=== PATIENT | female | born 1975 | race Caucasian/White ===

== ENCOUNTER → 2016-02-22 | Outpatient (CLI) | payer OTHER ==
--- NOTE | 2016-02-22 12:47 | XR ---
EXAMINATION TYPE: XR knee complete LT DATE OF EXAM: 02/22/2016 12:00 PM COMPARISON: NONE HISTORY: 40-year-old female fall 3 months ago with pain and swelling, degenerative joint disease. TECHNIQUE: 3 views FINDINGS: Mild marginal spurring within the medial and patellofemoral compartments. Weightbearing view could be tter evaluate the joint space. Extensor mechanism appears intact. No significant knee joint effusion. No acute fracture or dislocation. Some anterior soft tissue prominence may relate to patient body richter bitus. IMPRESSION: No acute osseous abnormality seen. Mild degenerative spurring in the medial and patellofemoral compar tments. Possible anterior soft tissue swelling.
== END | disposition home or self-care (01) ==
LOC: RADXRMAIN 11:34
PROVIDERS: ATTEND Internal Medicine
DX: M77.8 Other enthesopathies, not elsewhere classified (principal)

== ENCOUNTER 2016-05-27 11:05 | Emergency (ER) | payer OTHER ==
[2016-05-27 11:13] VITALS: TEMP 98.1
[2016-05-27] MEDS ORDERED: predniSONE 20 MG TAB PO STA (11:55)
[2016-05-27] MEDS ORDERED: valACYclovir HCL 1,000 MG TABLET PO STA (11:55)
--- NOTE | 2016-05-27 11:55 | ED ---
General Adult HPI - General Chief complaint: ENT Stated complaint: left side numbness Time Seen by Provider: 05/27/16 11:23 Source: patient, RN notes reviewed, old records reviewed Mode of arrival: ambulatory Limitations: no limitations - History of Present Illness Initial comments: This is a 40-year-old female ER for evaluation today. This patient presents for evaluation of facial paralysis. Patient has left-sided facial paralysis started yesterday, patient states gets worse when she tries to drink anything and she can't close her left eye. No trauma, no history of high blood pressure or cholesterol no diabetes no smoking. Patient denies any drugs or alcohol today. - Related Data Home Medications Medication Instructions Recorded Confirmed Levothyroxine Sodium [Levoxyl] 200 mcg PO DAILY 11/30/14 05/27/16 metFORMIN HCL 1,000 mg PO BID 11/30/14 05/27/16 Previous Rx's Medication Instructions Recorded predniSONE 50 mg PO DAILY #7 tab 05/27/16 valACYclovir HCL [Valtrex] 1,000 mg PO Q8HR #21 tab 05/27/16 Allergies Allergy/AdvReac Type Severity Reaction Status Date / Time Oawbvgj-[id number]-Psg Reductase AdvReac FACIAL Verified 05/27/16 12:03 Inhibitor NUMBNESS Review of Systems ROS Statement: Those systems with pertinent positive or pertinent negative responses have been documented in the HPI. ROS Other: All systems not noted in ROS Statement are negative. Past Medical History Past Medical History: Diabetes Mellitus, Hyperlipidemia, Hypertension, Thyroid Disorder History of Any Multi-Drug Resistant Organisms: None Reported Past Surgical History: Cholecystectomy Past Psychological History: ADD/ADHD Smoking Status: Never smoker Past Alcohol Use History: None Reported Past Drug Use History: None Reported General Exam - General Exam Comments Initial Comments: Neurological symptoms consistent with Escobedo's palsy, forehead is included in paralysis, unable to close left eye, left-sided facial paralysis Limitations: no limitations General appearance: alert, in no apparent distress Head exam: Present: atraumatic, normocephalic, normal inspection Eye exam: Present: normal appearance, PERRL, EOMI. Absent: scleral icterus, conjunctival injection, periorbital swelling ENT exam: Present: normal exam, mucous membranes moist Neck exam: Present: normal inspection. Absent: tenderness, meningismus, lymphadenopathy Respiratory exam: Present: normal lung sounds bilaterally. Absent: respiratory distress, wheezes, rales, rhonchi, stridor Cardiovascular Exam: Present: regular rate, normal rhythm, normal heart sounds. Absent: systolic murmur, diastolic murmur, rubs, gallop, clicks GI/Abdominal exam: Present: soft, normal bowel sounds. Absent: distended, tenderness, guarding, rebound, rigid Extremities exam: Present: normal inspection, full ROM, normal capillary refill. Absent: tenderness, pedal edema, joint swelling, calf tenderness Back exam: Present: normal inspection Neurological exam: Present: alert, oriented X3, CN II-XII intact Psychiatric exam: Present: normal affect, normal mood Skin exam: Present: warm, dry, intact, normal color. Absent: rash Course Vital Signs 05/27/16 05/27/16 11:10 11:55 Temperature 98.1 F Pulse Rate 110 H 93 Respiratory 20 18 Rate Blood Pressure 195/95 151/81 O2 Sat by Pulse 98 96 Oximetry - Reevaluation(s) Reevaluation #1: Patient consult the good 15 minutes regarding signs and symptoms of Escobedo's palsy versus stroke. Patient's questions are answered Medical Decision Making - Medical Decision Making 40 female to ER for evaluation of neurological issue. 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 Patient can be discharged home started on appropriate therapy Disposition Clinical Impression: Escobedo's palsy Disposition: HOME SELF-CARE Condition: Good Instructions: Escobedo Palsy (ED) Prescriptions: predniSONE 50 mg PO DAILY #7 tab valACYclovir HCL [Valtrex] 1,000 mg PO Q8HR #21 tab Referrals: Anand Hernandez MD [Primary Care Provider] - 1-2 days
[2016-05-27 11:56] VITALS: BP 151/81; PULSE 93; RESP 18
== END 2016-05-27 12:07 | disposition home or self-care (01) ==
LOC: EC 11:05
DX: G51.0 Bell's palsy (principal); E11.9 Type 2 diabetes mellitus without complications; E07.9 Disorder of thyroid, unspecified; Z88.8 Allergy status to other drugs, medicaments and biological substances; Z79.84 Long term (current) use of oral hypoglycemic drugs; Z79.899 Other long term (current) drug therapy
CPT/HCPCS: 99283; J7512

== ENCOUNTER → 2016-08-14 | Outpatient (CLI) | payer OTHER ==
[2016-08-14 15:16] LABS: Basophils % (A) 1 %; CH 30.1; CHCM 35.3; Eosinophils # (A) 0.2 k/uL (0-0.7); Eosinophils % (A) 2 %; HCT 37.7 % (34.0-46.0); HDW 2.86; HGB 13.4 gm/dL (11.4-16.0); Luc # (Auto) 0.11; Luc % (Auto) 2; Lymphocytes # (A) 1.8 k/uL (1.0-4.8); Lymphocytes % (A) 25 %; MCH 30.5 pg (25.0-35.0); MCHC 35.6 g/dL (31.0-37.0); MCV 85.7 fL (80.0-100.0); Monocytes # (A) 0.4 k/uL (0-1.0); Monocytes % (A) 5 %; Neutrophils # (A) 4.5 k/uL (1.3-7.7); Neutrophils % (A) 65 %; RDW 14.8 % (11.5-15.5); WBC (Perox) 7.24
[2016-08-14 16:05] LABS: Blood Urea Nitrogen 7 mg/dL (7-17); Non-African American GFR(MDRD) >60 (>60 ml/min/1.73 sqM)
[2016-08-14 18:55] LABS: Treponemal Ab Non-Reactive (Non-Reactive)
[2016-08-14 19:20] LABS: ANA w/Reflex to Titer NEGATIVE (NEGATIVE)
[2016-08-15 12:02] LABS: Lyme IgG/IgM Interp NEGATIVE (NEGATIVE)
== END | disposition home or self-care (01) ==
LOC: LABWHC1 14:48
PROVIDERS: ATTEND Psychiatry & Neurology Neurology
DX: G51.0 Bell's palsy (principal); R13.10 Dysphagia, unspecified
CPT/HCPCS: 36415; 82565; 84520; 85025; 85613; 85730; 86038; 86225; 86618; 86780

== ENCOUNTER → 2016-10-17 | Outpatient (CLI) | payer OTHER ==
[2016-10-17 13:27] LABS: Basophils % (A) 1 %; CH 30.9; CHCM 35.9; Eosinophils # (A) 0.2 k/uL (0-0.7); Eosinophils % (A) 2 %; HCT 40.9 % (34.0-46.0); HDW 2.84; HGB 14.1 gm/dL (11.4-16.0); Luc # (Auto) 0.19; Luc % (Auto) 2; Lymphocytes # (A) 1.9 k/uL (1.0-4.8); Lymphocytes % (A) 23 %; MCH 29.7 pg (25.0-35.0); MCHC 34.4 g/dL (31.0-37.0); MCV 86.3 fL (80.0-100.0); Mean Platelet Volume 8.6; Monocytes # (A) 0.4 k/uL (0-1.0); Monocytes % (A) 5 %; Neutrophils # (A) 5.6 k/uL (1.3-7.7); Neutrophils % (A) 67 %; RBC 4.74 m/uL (3.80-5.40); RDW 13.9 % (11.5-15.5); WBC 8.4 k/uL (3.8-10.6)
[2016-10-17 13:44] LABS: Iron 69 ug/dL (37-170); Magnesium 1.5 mg/dL (1.6-2.3)
[2016-10-17 13:54] LABS: % Iron Saturation 21.6 % (20-50); Total Iron Binding Capacity 319 ug/dL (265-497)
[2016-10-17 14:05] LABS: Hemoglobin A1C 6.1 % (4.2-6.1)
[2016-10-17 14:33] LABS: Vitamin B12 366 pg/mL (239-931)
== END | disposition home or self-care (01) ==
LOC: LABWHC1 12:41
PROVIDERS: ATTEND Internal Medicine
DX: E11.9 Type 2 diabetes mellitus without complications (principal); I10 Essential (primary) hypertension; E03.9 Hypothyroidism, unspecified; E66.9 Obesity, unspecified; L65.9 Nonscarring hair loss, unspecified
CPT/HCPCS: 36415; 82306; 82607; 82728; 83036; 83540; 83550; 83735; 84439; 84443; 84630; 84702; 85025

== ENCOUNTER → 2016-11-06 | Outpatient (CLI) | payer OTHER ==
--- NOTE | 2016-11-06 15:05 | XR ---
EXAMINATION TYPE: XR chest 2V DATE OF EXAM: 11/06/2016 COMPARISON: 11/30/2014 HISTORY: Sarcoidosis TECHNIQUE: Frontal and lateral views of the chest are obtained. FINDINGS: There is no focal air space opacity, pleural effusion, or pneumothorax seen. The cardiac silhouette size is within normal limits. No hilar prominence to suggest adenopathy in this patient w ith a history of sarcoidosis. The osseous structures are intact. Mild degenerative changes of the tho racic spine are noted. IMPRESSION: No acute cardiopulmonary process. No evidence of radiographic pulmonary nodule or hilar adenopathy in this patient with a known history of sarcoidosis. Pulmonary staging would better be ass essed with CT if clinically indicated.
== END | disposition home or self-care (01) ==
LOC: RADXRMAIN 13:37
PROVIDERS: ATTEND Dermatology MOHS-Micrographic Surgery
DX: D86.9 Sarcoidosis, unspecified (principal)
CPT/HCPCS: 71020

== ENCOUNTER → 2017-02-18 | Outpatient (CLI) | payer OTHER ==
[2017-02-18 12:12] LABS: ALT 35 U/L (9-52); AST 23 U/L (14-36); Alkaline Phosphatase 77 U/L (38-126); Anion Gap 9 mmol/L; Blood Urea Nitrogen 12 mg/dL (7-17); Calcium 9.5 mg/dL (8.4-10.2); Carbon Dioxide 28 mmol/L (22-30); Chloride 104 mmol/L (98-107); Glucose 130 mg/dL (74-99); Potassium 4.4 mmol/L (3.5-5.1); Sodium 141 mmol/L (137-145); Total Bilirubin 0.4 mg/dL (0.2-1.3); Total Protein 7.4 g/dL (6.3-8.2)
[2017-02-18 12:29] LABS: T4, Free (Free Thyroxine) 1.23 ng/dL (0.78-2.19)
[2017-02-18 12:49] LABS: Basophils % (A) 1 %; Eosinophils # (A) 0.1 k/uL (0-0.7); Eosinophils % (A) 2 %; HCT 43.2 % (34.0-46.0); HGB 14.2 gm/dL (11.4-16.0); Lymphocytes # (A) 1.8 k/uL (1.0-4.8); Lymphocytes % (A) 25 %; MCH 28.2 pg (25.0-35.0); MCHC 32.8 g/dL (31.0-37.0); MCV 86.1 fL (80.0-100.0); Mean Platelet Volume 8.5; Monocytes # (A) 0.4 k/uL (0-1.0); Monocytes % (A) 5 %; Neutrophils # (A) 4.7 k/uL (1.3-7.7); Neutrophils % (A) 66 %; Platelet Count 224 k/uL (150-450); RBC 5.02 m/uL (3.80-5.40); RDW 14.8 % (11.5-15.5); WBC 7.1 k/uL (3.8-10.6)
== END | disposition home or self-care (01) ==
LOC: LABWHC1 11:14
PROVIDERS: ATTEND Physician Assistant Medical
DX: E11.9 Type 2 diabetes mellitus without complications (principal); I10 Essential (primary) hypertension; D86.9 Sarcoidosis, unspecified; G51.0 Bell's palsy
CPT/HCPCS: 36415; 80053; 82164; 82306; 83036; 84439; 84443; 85025

== ENCOUNTER → 2017-04-17 | Outpatient (CLI) | payer OTHER ==
[2017-04-17 10:27] LABS: C Reactive Protein 7.5 mg/L (<10.0)
[2017-04-17 10:36] LABS: T4, Free (Free Thyroxine) 0.86 ng/dL (0.78-2.19)
== END | disposition home or self-care (01) ==
LOC: LABWHC1 09:16
PROVIDERS: ATTEND Internal Medicine
DX: E78.5 Hyperlipidemia, unspecified (principal); E03.9 Hypothyroidism, unspecified; E11.9 Type 2 diabetes mellitus without complications; G51.0 Bell's palsy
CPT/HCPCS: 36415; 80061; 82550; 84439; 84443; 85652; 86140

== ENCOUNTER → 2017-04-20 | Outpatient (CLI) | payer OTHER ==
--- NOTE | 2017-04-21 09:36 | MM ---
Reason for exam: screening (asymptomatic). Last mammogram was performed 2 years and 4 months ago. History: Patient is nulliparous. Family history of breast cancer in maternal grandmother at age 40. Took progesterone for 20 years. Physical Findings: A clinical breast exam by your physician is recommended on an annual basis and results should be correlated with mammographic findings. MG Screening Mammo w CAD Bilateral CC, MLO, and XCCL view(s) were taken. Prior study comparison: December 08, 2014, bilateral MG screening mammo w CAD. August 01, 2003, bilateral screening mammogram. There are scattered fibroglandular densities. There is no discrete abnormality. No significant changes when compared with prior studies. ASSESSMENT: Negative, BI-RAD 1 RECOMMENDATION: Routine screening mammogram of both breasts in 1 year.
== END | disposition home or self-care (01) ==
LOC: RADMAMWWP 10:52
PROVIDERS: ATTEND Obstetrics & Gynecology
DX: Z12.31 Encounter for screening mammogram for malignant neoplasm of breast (principal)
CPT/HCPCS: 77067

== ENCOUNTER → 2017-04-28 | Outpatient (CLI) | payer OTHER | END | disposition home or self-care (01) | LOC: LABWHC1 09:59 | PROVIDERS: ATTEND Internal Medicine | DX: E78.5 Hyperlipidemia, unspecified (principal); E03.9 Hypothyroidism, unspecified; G51.0 Bell's palsy | CPT/HCPCS: 36415; 82272; 87338 ==

== ENCOUNTER → 2017-07-22 | Outpatient (CLI) | payer OTHER ==
[2017-07-22 12:39] LABS: Anion Gap 11 mmol/L; Blood Urea Nitrogen 14 mg/dL (7-17); Calcium 9.7 mg/dL (8.4-10.2); Carbon Dioxide 25 mmol/L (22-30); Chloride 105 mmol/L (98-107); Glucose 113 mg/dL (74-99); Potassium 4.9 mmol/L (3.5-5.1); Sodium 141 mmol/L (137-145)
--- NOTE | 2017-07-22 17:13 | CT ---
EXAMINATION TYPE: CT chest w con DATE OF EXAM: 07/22/2017 COMPARISON: NONE HISTORY: Abnormal findings on CXR CT DLP: 795 mGycm, Automated exposure control for dose reduction was used. CONTRAST: Performed injected with 100 ml mL of Isovue 300. TECHNIQUE: Axial images were obtained at 5 mm thick sections. Reconstructed images are reviewed on [employer] computer in the coronal plane. FINDINGS: Portion of the thyroid visualized is small. There is a 0.3 cm peripheral based right middle lobe nodule. Lungs otherwise clear. Extensive adenopathy is through the pretracheal space aortopulmonic window and superior mediastinum. Multiple enlarged lymph nodes are present including a 1.1 cm lymph node in the superior mediastinum a 1.4 cm pretracheal space lymph node a 1.0 cm left peribronchial lymph node and a 1.8 cm superior rig ht hilar lymph node and a 1.5 cm inferior right hilar lymph node. Additional smaller lymph nodes are present. A celiac axis lymph node may be present measuring 1.1 cm. The ascending aorta diameter at the level of the main pulmonary artery is 3.6 cm. The main pulmonar y artery diameter at the bifurcation is 3.[address] sections are obtained through the upper abdomen. Abdomen is essentially unremarkable. IMPRESSIONS: 1. Multiple enlarged lymph nodes through the mediastinum and in the upper abdomen.
== END | disposition home or self-care (01) ==
LOC: RADCTMAIN 12:00
PROVIDERS: ATTEND Internal Medicine Rheumatology
DX: R93.8 Abnormal findings on diagnostic imaging of other specified body structures (principal); D86.3 Sarcoidosis of skin
CPT/HCPCS: 80048; 71260; 36415; Q9967

== ENCOUNTER → 2017-11-03 | Outpatient (CLI) | payer OTHER ==
--- NOTE | 2017-11-03 20:44 | CONS ---
CONSULTATION REASON FOR CONSULTATION: Consultation for sleep apnea. This is a 42-year-old, obese female patient who is coming in for sleep apnea evaluation. The patient was referred to me by the primary care physician. Apparently the patient has been having loud snoring and she is waking up anxious and having tachycardia and palpitation and this is happening several times at night. No witnessed apneas. She has a moderate degree of snoring and she has chronic tiredness during the day. No significant sleepiness. Laurel score is 0. The patient has difficulty with memory and she has some cognitive impairment and history that she is providing is not absolutely reliable especially that she is having some memory problems. I noted that she has right facial weakness and upon further investigation, it seems that the patient has been diagnosed having sarcoidosis. She has 2 skin lesions over the nose bridge that she claims that this was biopsied by Dr. 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 Subsequently she developed right facial palsy consistent with Escobedo's palsy and this is in inconsistent with history of sarcoidosis. I went and looked at the records and the patient had a CT scan of the chest on 07/22/2017 and based on the CT scan findings, the patient has some abnormal mediastinal lymphadenopathy where she has multiple large lymph nodes throughout the mediastinum and upper abdomen. Another sign of sarcoidosis. Currently she is not taking any systemic steroids or any other active treatment for sarcoid. Reviewed her blood work. It was forwarded to me by her primary care physician and the patient has no abnormalities in liver function tests. Calcium level is at 9.2, barry levels from 02/18/2017 was 33. Vitamin D levels are low. The patient has hypothyroidism and based on the most recent blood work, her TSH is 18 and her free T4 is 1.04. She is on thyroid hormone replacement. In terms of sleep apnea, the patient has snoring. She goes to bed at 11 o'clock. Wakes up 7 o'clock in the morning and her main issue is nocturnal arousals with anxiety and palpitations and increased heartbeats. No nocturia. Occasionally she grinds her teeth. No sleepwalking or sleep talking. She has some symptoms to suggest anxiety/panic attacks in addition to her palpitations. No sleep paralysis. No hallucinations. No cataplexy. She has hypothyroidism and her most recent TSH is 12.8, and she is on thyroid hormone replacement. She is also diagnosed having diabetes, hypertension and hyperlipidemia. Going back to her sarcoid, she gives a vague history of complications of sarcoid which at 1 point, affected her swallowing which is an unusual presentation. She was hospitalized at [facility] and she was also hospitalized at [facility]. Ultimately her swallowing process improved and the patient is currently back to swallow food normally without any major difficulties. She has no history of hypercalcemia. No nephrolithiasis. No active arthritis. No significant shortness of breath. No cough or sputum production, or wheezing. PAST MEDICAL HISTORY: 1. Sarcoidosis. Details discussed above. Would like to get exact diagnostic circumstances. The patient has cutaneous involvement in addition to Escobedo's palsy. The most recent CT scan of the chest from July of 2017 showed mediastinal lymphadenopathy. 2. Diabetes mellitus. 3. 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 4. Dyslexia. 5. Hypertension. 6. Generalized anxiety disorder/panic. 7. Glaucoma. 8. Hypothyroidism. 9. Hyperlipidemia. 10.Memory deficits. 11.Obesity. 12.History of chronic muscle spasms. 13.History of vision impairment with questionable optic nerve disease. 14.Palpitations. PAST SURGICAL HISTORY: Includes appendectomy and EGD and cholecystectomy. DRUG ALLERGIES: Not known. OUTPATIENT MEDICATION LIST: Includes: 1. Aspirin 81 mg p.o. daily. 2. Zetia 10 mg p.o. daily. 3. Synthroid levothyroxine 12 mcg p.o. daily. 4. Metformin 100 mg p.o. daily. 5. Multivitamin. 6. Paxil 10 mg p.o. daily. 7. Vitamin D3 2000 units daily. FAMILY HISTORY: Positive for sleep apnea. REVIEW OF SYSTEMS: 12-point review of system was done. Positive findings are mentioned above history of present illness. She is currently living with her . She has had 2 children. 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 She is . She never smoked. No history of alcohol. No history of IV drugs. She utilizes caffeine. Review of system is positive for dry mouth in the morning. No shortness of breath. No cough or sputum production. No angina. She has palpitation. Has increased anxiety. No nausea. No vomiting. No diarrhea. Quite anxious. No other complaints otherwise. She is not having any active issues with swallowing. Face is slightly asymmetric and she has right facial palsy. PHYSICAL EXAMINATION: BP is 147/88, pulse 92, respirations 18, temp 98.4, saturation 98% on room air. Weight is 248, height is 5 feet 5 inches, BMI is 40.6, Laurel score is 0. Neck size 17 inch. GENERAL APPEARANCE: Calm, comfortable. Head is atraumatic, normocephalic. NECK: Supple. There is no JVD. No goiter or neck masses. The patient has facial palsy on the right. LUNGS: Clear to auscultation. HEART: Sounds regular rate and rhythm. Normal S1, S2. No S3. No murmurs. ABDOMEN: Soft, nontender. No organomegaly. EXTREMITIES: No edema. No cyanosis or clubbing. Neurologic: She is able to walk. No focal neurological deficits. She has right facial weakness/paralysis related to previous facial palsy and normal swallow. Normal gag. Pupils are equal, reactive to light. Normal movements of the extraocular muscles. IMPRESSION: 1. Nocturnal arousals with increased anxiety and palpitation rule out underlying obstructive sleep apnea. 2. Loud snoring. 3. Obesity with a BMI above 39.8. 4. Sarcoidosis. 5. History of Escobedo's palsy, right facial weakness. 6. Cutaneous sarcoid involving the nose. 7. Diabetes. 8. Hypothyroidism. 9. Hypertension. 10.Attention-deficit disorder/attention-deficit/hyperactivity disorder. 11.History of dysphagia recovered. 12.Memory impairment/cognitive impairment. 13.Generalized anxiety disorder. 14.Glaucoma. PLAN: 1. Proceed with a screening polysomnogram looking for any significant sleep apnea. 2. The patient will be also seeing me in the Pulmonary Clinic for PFT. We will review her CT scan findings. We will obtain records on previous diagnosis of sarcoidosis and recommend treatment if necessary. She has an upcoming appointment with Neurology. Most recent barry levels are low. Calcium levels are normal. No significant hypercalcemia. We will continue to follow. 3. 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 TSH is elevated. She is on thyroid hormone to be followed up by her primary care physician for regulation treatment of underlying hypothyroidism. 4. Will continue to follow. MMODL / IJN: [id number] /
== END | disposition home or self-care (01) ==
LOC: SLEEP 16:25
PROVIDERS: ATTEND Internal Medicine Critical Care Medicine
DX: G47.51 Confusional arousals (principal); F41.9 Anxiety disorder, unspecified; E66.9 Obesity, unspecified; D86.9 Sarcoidosis, unspecified; E11.9 Type 2 diabetes mellitus without complications; E03.9 Hypothyroidism, unspecified; I10 Essential (primary) hypertension; F90.9 Attention-deficit hyperactivity disorder, unspecified type; E78.5 Hyperlipidemia, unspecified; G31.84 Mild cognitive impairment of uncertain or unknown etiology; H40.9 Unspecified glaucoma; Z68.39 Body mass index [BMI] 39.0-39.9, adult; Z79.82 Long term (current) use of aspirin; Z79.899 Other long term (current) drug therapy; Z90.89 Acquired absence of other organs; Z90.49 Acquired absence of other specified parts of digestive tract
CPT/HCPCS: 99211

== ENCOUNTER 2017-11-10 10:41 | Observation (INO) | payer OTHER ==
[2017-11-10] MEDS ORDERED: SODIUM CHLORIDE 0.9% 1,000 ML IV STA (11:09)
[2017-11-10] MEDS ORDERED: ASPIRIN 81 MG PO STA (11:09)
--- NOTE | 2017-11-10 11:12 | ED ---
General Adult HPI <Alfred Avilez - Last Filed: 11/10/17 13:42> - General Source: patient, RN notes reviewed Mode of arrival: ambulatory Limitations: no limitations <Brett Ospina - Last Filed: 11/10/17 16:49> - General Chief complaint: Chest Pain Stated complaint: pain under arm Time Seen by Provider: 11/10/17 11:00 - History of Present Illness Initial comments: Patient 42-year-old female presented to the emergency room today with a chief complaint of left-sided chest pain that began approximately 8 PM last night. Patient states that she's been experiencing a sharp-type discomfort to the left side of her breast. She states that last for 1-4 seconds at a time. She states it occurs approximately every half-hour. Denies anything that makes it better or worse. States never had similar symptoms in the past. Patient denies any other associated symptoms or complaints. Patient denies any recent fever, chills, shortness of breath, back pain, abdominal pain, nausea or vomiting, numbness or tingling, dysuria or hematuria, constipation or diarrhea, headaches or visual changes, or any other complaints. (Brett Ospina) - Related Data Home Medications Medication Instructions Recorded Confirmed Levothyroxine Sodium [Levoxyl] 200 mcg PO DAILY 11/30/14 11/10/17 Dextran/Hypromellose/Glycerin 1 - 2 drop BOTH EYES 5XD 11/10/17 11/10/17 [Genteal Tears 0.1%-0.2%-0.3%] Multivitamins, Thera [Multivitamin 1 tab PO DAILY 11/10/17 11/10/17 (formulary)] PARoxetine HCL [Paxil] 10 mg PO DAILY 11/10/17 11/10/17 metFORMIN HCL [Glucophage] 500 mg PO BID 11/10/17 11/10/17 Allergies Allergy/AdvReac Type Severity Reaction Status Date / Time Sewibti-Xjf-Bnt Reductase AdvReac FACIAL Verified 11/10/17 11:17 Inhibitor NUMBNESS Review of Systems ROS Other: All systems not noted in ROS Statement are negative. <Alfred Avilez - Last Filed: 11/10/17 13:42> ROS Other: All systems not noted in ROS Statement are negative. <Brett Ospina - Last Filed: 11/10/17 16:49> ROS Statement: Those systems with pertinent positive or pertinent negative responses have been documented in the HPI. Past Medical History Past Medical History: Diabetes Mellitus, Hyperlipidemia, Hypertension, Thyroid Disorder History of Any Multi-Drug Resistant Organisms: None Reported Past Surgical History: Cholecystectomy Past Psychological History: ADD/ADHD, Anxiety Smoking Status: Never smoker Past Alcohol Use History: None Reported Past Drug Use History: None Reported - Past Family History Mother Family Medical History: AFIB, Osteoarthritis (OA) Father Family Medical History: Osteoarthritis (OA), Thyroid Disorder <Brett Ospina - Last Filed: 11/10/17 16:49> General Exam <Alfred Avilez - Last Filed: 11/10/17 13:42> Limitations: no limitations <Brett Ospina - Last Filed: 11/10/17 16:49> - General Exam Comments Initial Comments: General: The patient is awake and alert, in no distress, and does not appear acutely ill. Eye: Extra-ocular movements are intact. No nystagmus. There is normal conjunctiva bilaterally. No signs of icterus. Ears, nose, mouth and throat: There are moist mucous membranes and no oral lesions. Neck: The neck is supple, there is no tenderness or JVD. Cardiovascular: There is a regular rate and rhythm. No murmur, rub or gallop is appreciated. Respiratory: Lungs are clear to auscultation, respirations are non-labored, breath sounds are equal. No wheezes, stridor, rales, or rhonchi. Musculoskeletal: Normal ROM, no tenderness. Sensation intact. Strength 5/5. Pulses equal bilaterally 2+. Neurological: A&O x 3. CN II-XII intact, There are no obvious motor or sensory deficits. Coordination appears grossly intact. Speech is normal. Skin: Skin is warm and dry and no rashes or lesions are noted. Psychiatric: Cooperative, appropriate mood & affect, normal judgment. (Brett Ospina) Vital Signs 11/10/17 11/10/17 11/10/17 10:53 13:19 14:15 Temperature 98.7 F Pulse Rate 104 H 84 94 Respiratory 18 16 18 Rate Blood Pressure 159/95 135/89 132/81 O2 Sat by Pulse 98 97 Oximetry EKG Findings - EKG Comments: EKG Findings:: EKG performed at 1223: Shows normal sinus rhythm at 85 bpm. MD interval is 166. QRS 86. QT/QTC 378/449. EKG compared to previous EKG on shows no acute changes. <Brett Ospina - Last Filed: 11/10/17 16:49> Medical Decision Making - Lab Data Result diagrams: 11/10/17 11:54 11/10/17 11:54 <Alfred Avilez - Last Filed: 11/10/17 13:42> - Lab Data Result diagrams: 11/10/17 11:54 11/10/17 11:54 <Brett Ospina - Last Filed: 11/10/17 16:49> - Medical Decision Making Patient reevaluated by myself, Dr. Avilez. Patient resting comfortably in bed. Patient has had intermittent episodes of chest discomfort since last night. No discomfort at this time. Patient does have risk factors including Q-wave on EKG , diabetes, hypercholesterolemia, and hypertension. Patient and family updated on results and plan. Case was discussed with Dr. ann, who will admit for Dr. Zarate. (Alfred Avilez) - Lab Data Lab Results 11/10/17 11/10/17 11/10/17 Range/Units 11:54 11:54 11:54 WBC 6.0 (3.8-10.6) k/uL RBC 5.07 (3.80-5.40) m/uL Hgb 14.3 (11.4-16.0) gm/dL Hct 42.8 (34.0-46.0) % MCV 84.4 (80.0-100.0) fL MCH 28.3 (25.0-35.0) pg MCHC 33.5 (31.0-37.0) g/dL RDW 13.2 (11.5-15.5) % Plt Count 223 (150-450) k/uL Neutrophils % 66 % Lymphocytes % 25 % Monocytes % 5 % Eosinophils % 3 % Basophils % 0 % Neutrophils # 3.9 (1.3-7.7) k/uL Lymphocytes # 1.5 (1.0-4.8) k/uL Monocytes # 0.3 (0-1.0) k/uL Eosinophils # 0.2 (0-0.7) k/uL Basophils # 0.0 (0-0.2) k/uL PT (9.0-12.0) sec INR (<1.2) APTT (22.0-30.0) sec Sodium 142 (137-145) mmol/L Potassium 4.2 (3.5-5.1) mmol/L Chloride 105 (98-107) mmol/L Carbon Dioxide 28 (22-30) mmol/L Anion Gap 9 mmol/L BUN 11 (7-17) mg/dL Creatinine 0.54 (0.52-1.04) mg/dL Est GFR (CKD-EPI)AfAm >90 (>60 ml/min/1.73 sqM) Est GFR (CKD-EPI)NonAf >90 (>60 ml/min/1.73 sqM) Glucose 103 H (74-99) mg/dL Calcium 9.5 (8.4-10.2) mg/dL Total Bilirubin 0.6 (0.2-1.3) mg/dL AST 21 (14-36) U/L ALT 21 (9-52) U/L Alkaline Phosphatase 90 (38-126) U/L Total Creatine Kinase 97 (30-135) U/L CK-MB (CK-2) 0.5 (0.0-2.4) ng/mL CK-MB (CK-2) Rel Index 0.5 Troponin I <0.012 (0.000-0.034) ng/mL Total Protein 8.2 (6.3-8.2) g/dL Albumin 4.3 (3.5-5.0) g/dL Urine Color Urine Appearance (Clear) Urine pH (5.0-8.0) Ur Specific Preston (1.001-1.035) Urine Protein (Negative) Urine Glucose (UA) (Negative) Urine Ketones (Negative) Urine Blood (Negative) Urine Nitrite (Negative) Urine Bilirubin (Negative) Urine Urobilinogen (<2.0) mg/dL Ur Leukocyte Esterase (Negative) Urine HCG, Qual (Not Detectd) 11/10/17 11/10/17 11/10/17 Range/Units 11:54 13:15 13:15 WBC (3.8-10.6) k/uL RBC (3.80-5.40) m/uL Hgb (11.4-16.0) gm/dL Hct (34.0-46.0) % MCV (80.0-100.0) fL MCH (25.0-35.0) pg MCHC (31.0-37.0) g/dL RDW (11.5-15.5) % Plt Count (150-450) k/uL Neutrophils % % Lymphocytes % % Monocytes % % Eosinophils % % Basophils % % Neutrophils # (1.3-7.7) k/uL Lymphocytes # (1.0-4.8) k/uL Monocytes # (0-1.0) k/uL Eosinophils # (0-0.7) k/uL Basophils # (0-0.2) k/uL PT 9.6 (9.0-12.0) sec INR 1.0 (<1.2) APTT 26.5 (22.0-30.0) sec Sodium (137-145) mmol/L Potassium (3.5-5.1) mmol/L Chloride (98-107) mmol/L Carbon Dioxide (22-30) mmol/L Anion Gap mmol/L BUN (7-17) mg/dL Creatinine (0.52-1.04) mg/dL Est GFR (CKD-EPI)AfAm (>60 ml/min/1.73 sqM) Est GFR (CKD-EPI)NonAf (>60 ml/min/1.73 sqM) Glucose (74-99) mg/dL Calcium (8.4-10.2) mg/dL Total Bilirubin (0.2-1.3) mg/dL AST (14-36) U/L ALT (9-52) U/L Alkaline Phosphatase (38-126) U/L Total Creatine Kinase (30-135) U/L CK-MB (CK-2) (0.0-2.4) ng/mL CK-MB (CK-2) Rel Index Troponin I (0.000-0.034) ng/mL Total Protein (6.3-8.2) g/dL Albumin (3.5-5.0) g/dL Urine Color Light Yellow Urine Appearance Clear (Clear) Urine pH 7.0 (5.0-8.0) Ur Specific Preston 1.005 (1.001-1.035) Urine Protein Negative (Negative) Urine Glucose (UA) Negative (Negative) Urine Ketones Negative (Negative) Urine Blood Negative (Negative) Urine Nitrite Negative (Negative) Urine Bilirubin Negative (Negative) Urine Urobilinogen <2.0 (<2.0) mg/dL Ur Leukocyte Esterase Negative (Negative) Urine HCG, Qual Not Detected (Not Detectd) Disposition <Alfred Avilez - Last Filed: 11/10/17 13:42> Is patient prescribed a controlled substance at d/c from ED?: No Time of Disposition: 13:15 <Brett Ospina - Last Filed: 11/10/17 16:49> Clinical Impression: Chest pain Disposition: ADMITTED IP TO THIS HOSP Condition: Good
[2017-11-10 12:14] LABS: Basophils % (A) 0 %; Eosinophils # (A) 0.2 k/uL (0-0.7); Eosinophils % (A) 3 %; HCT 42.8 % (34.0-46.0); HGB 14.3 gm/dL (11.4-16.0); Lymphocytes # (A) 1.5 k/uL (1.0-4.8); Lymphocytes % (A) 25 %; MCH 28.3 pg (25.0-35.0); MCHC 33.5 g/dL (31.0-37.0); MCV 84.4 fL (80.0-100.0); Monocytes # (A) 0.3 k/uL (0-1.0); Monocytes % (A) 5 %; Neutrophils # (A) 3.9 k/uL (1.3-7.7); Neutrophils % (A) 66 %; Platelet Count 223 k/uL (150-450); RBC 5.07 m/uL (3.80-5.40); RDW 13.2 % (11.5-15.5)
--- NOTE | 2017-11-10 12:21 | XR ---
EXAMINATION TYPE: XR chest 2V DATE OF EXAM: 11/10/2017 COMPARISON: 11/06/2016 HISTORY: 42-year-old female with chest pain TECHNIQUE: Frontal and lateral views FINDINGS: The cardiomediastinal silhouette, aorta, and pulmonary vasculature are within normal limits. Lungs an d pleural spaces are clear. IMPRESSION: No acute cardiopulmonary process.
[2017-11-10 12:26] LABS: Partial Thromboplastin Time 26.5 sec (22.0-30.0); Prothrombin Time 9.6 sec (9.0-12.0)
[2017-11-10 12:30] LABS: ALT 21 U/L (9-52); AST 21 U/L (14-36); Albumin 4.3 g/dL (3.5-5.0); Alkaline Phosphatase 90 U/L (38-126); Anion Gap 9 mmol/L; Blood Urea Nitrogen 11 mg/dL (7-17); Calcium 9.5 mg/dL (8.4-10.2); Carbon Dioxide 28 mmol/L (22-30); Chloride 105 mmol/L (98-107); Glucose 103 mg/dL (74-99); Potassium 4.2 mmol/L (3.5-5.1); Sodium 142 mmol/L (137-145); Total Bilirubin 0.6 mg/dL (0.2-1.3); Total Protein 8.2 g/dL (6.3-8.2)
[2017-11-10 12:45] LABS: Creatine Kinase 97 U/L (30-135)
[2017-11-10 12:58] LABS: Creatine Kinase MB 0.5 ng/mL (0.0-2.4); Troponin I <0.012 ng/mL (0.000-0.034)
[2017-11-10] MEDS ORDERED: SODIUM CHLORIDE 0.9% 1,000 ML IV ONE (13:33)
[2017-11-10] MEDS ORDERED: NITROGLYCERIN SL TABS 0.4 MG TAB SUBLINGUAL PRN (13:33)
[2017-11-10 13:48] LABS: Appearance,Urine Clear (Clear); Bilirubin,Urine Negative (Negative); Blood,Urine Negative (Negative); Color,Urine Light Yellow; Glucose,Urine (UA) Negative (Negative); Ketones,Urine Negative (Negative); Leukocyte Esterase,Urine Negative (Negative); Nitrite,Urine Negative (Negative); Protein,Urine Negative (Negative); Specific Gravity,Urine 1.005 (1.001-1.035); Urobilinogen,Urine <2.0 mg/dL (<2.0)
[2017-11-10] MEDS ORDERED: MELATONIN 3 MG TABLET PO PRN (15:00)
[2017-11-10] MEDS ORDERED: NALOXONE 0.4 MG/ML 1 ML VIAL IV PRN (15:00)
[2017-11-10] MEDS ORDERED: HYDROcodone/APAP 5-325MG 1 EACH TAB PO PRN (15:00)
[2017-11-10] MEDS ORDERED: ACETAMINOPHEN TAB 325 MG TAB PO PRN (15:00)
[2017-11-10] MEDS ORDERED: ARTIFICIAL TEARS-HYPROMELLOSE DROPS 15 ML BTL BOTH EYES PRN (15:12)
--- NOTE | 2017-11-10 15:16 | P.HPIM ---
History of Present Illness H&P Date: 11/10/17 Chief Complaint: Chest pain 42-year-old female with PMH of diabetes mellitus, depression and anxiety, hypothyroidism, hypertension, Escobedo's palsy, sarcoidosis presents the ED for chest pain. Patient reports chest pain started around 8 PM last night while she was sitting in a chair having a conversation. Patient reports getting worked up by the conversation. Patient reported the chest pain to be a left-sided, 4 out of 10 in severity, described as a "pencil poke". There is no radiation of the pain. There is no alleviating or aggravating factors. She has never experienced this pain before. Patient reports the pain to be intermittent, occurring every 30 minutes to 60 minutes. Pain lasts for 1-3 seconds. Patient denies headache, nausea, vomiting, fever, cough, shortness of breath, palpitations, changes in urination or bowel habits. No dizziness. No numbness , weakness, tingling of the extremities. She denies lower extremity edema. She denies PND or orthopnea. Denies exertional shortness of breath. 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 Patient has been seeing a Neurologist and Gasoline Service Attendant for this as well. Her PCP is Dr. Zarate In the ED, CBC and CMP was unremarkable except for glucose 103. Initial troponin was less than 0.012. Urinalysis was negative. Chest x-ray was negative. Patient is admitted for chest pain, rule out acute coronary syndrome. Cardiology on consult. Review of Systems All systems: negative Past Medical History Past Medical History: Diabetes Mellitus, Hyperlipidemia, Hypertension, Thyroid Disorder History of Any Multi-Drug Resistant Organisms: None Reported Past Surgical History: Cholecystectomy Past Psychological History: ADD/ADHD, Anxiety Smoking Status: Never smoker Past Alcohol Use History: None Reported Past Drug Use History: None Reported Medications and Allergies Home Medications Medication Instructions Recorded Confirmed Type Levothyroxine Sodium [Levoxyl] 200 mcg PO DAILY 11/30/14 11/10/17 History Dextran/Hypromellose/Glycerin 1 - 2 drop BOTH EYES 5XD 11/10/17 11/10/17 History [Genteal Tears 0.1%-0.2%-0.3%] Multivitamins, Thera [Multivitamin 1 tab PO DAILY 11/10/17 11/10/17 History (formulary)] PARoxetine HCL [Paxil] 10 mg PO DAILY 11/10/17 11/10/17 History metFORMIN HCL [Glucophage] 500 mg PO BID 11/10/17 11/10/17 History Allergies Allergy/AdvReac Type Severity Reaction Status Date / Time Chvagzw-Xki-Nev Reductase AdvReac FACIAL Verified 11/10/17 11:17 Inhibitor NUMBNESS Physical Exam Vitals: Vital Signs Temp Pulse Resp BP Pulse Ox 11/10/17 13:19 84 16 135/89 97 11/10/17 10:53 98.7 F 104 H 18 159/95 98 Intake and Output 11/09/17 11/10/17 11/10/17 22:59 06:59 14:59 Other: Weight 113.398 kg General: [non toxic], [no distress], [appears at stated age] Derm: [warm], [dry] Head: [atraumatic], [normocephalic], [symmetric] Eyes: [EOMI], [no lid lag], [anicteric sclera] Mouth: [no lip lesion], [mucus membranes moist] Cardiovascular: [S1S2 reg], [no murmur], [positive DP pulse bilateral], [ nontender chest wall] Lungs: [CTA bilateral], [no rhonchi, no rales] , [no accessory muscle use] Abdominal: [soft], [ nontender to palpation], [no guarding], [no appreciable organomegaly] Ext: [no gross muscle atrophy], [no edema], [no contractures] Neuro: [ CN II-XI grossly intact except cranial nerve VII], [no focal neuro deficits] Psych: [Alert], [oriented], [appropriate affect] Results CBC & Chem 7: 11/10/17 11:54 11/10/17 11:54 Labs: Abnormal Lab Results - Last 24 Hours (Table) 11/10/17 Range/Units 11:54 Glucose 103 H (74-99) mg/dL Thrombosis Risk Factor Assmnt - Choose All That Apply Any of the Below Risk Factors Present?: Yes Each Factor Represents 1 point: Age 41-60 years Other Risk Factors: No Other congenital or acquired thrombophilia - If yes, enter type in comment: No Thrombosis Risk Factor Assessment Total Risk Factor Score: 1 Thrombosis Risk Factor Assessment Level: Low Risk Assessment and Plan Assessment: Assessment and Plan 1. Chest pain: Likely MSK, unlikely to be cardiac in nature. CXR negative. Troponin < 0.012, EKG showing NSR with possible previous infarct. Telemetry monitoring. Continue ASA 325 mg PO QD. Nitrostat PRN for chest pain. Cardiac diet. Trend Trop/EKG to r/o ACS. FU Cardiology for further intervention. FU Lipid panel 2. Sarcoidosis: Seeing a Gasoline Service Attendant and Nutrition Program Instructor. CT from July 2017 shows multiple enlarged lymph nodes with the mediastinum in the upper abdomen. States is pending Bx of chest lymph node. FU outPT 3. [place] Palsy: Likely due to Sarcoidosis. Seeing a Neurologist. Has received a month of steroids in the past. FU outPT 4. HTN: BP 132/81. No home medications. Monitor vitals, adjust medications as necessary. 5. Hypothyroidism: Stable. Continue Synthroid 200 mcg PO QD. 6. Depression and Anxiety: Continue Paxil 10 mg PO QD. 7. DVT/GI Prophylaxis: Pepcid 20 mg PO BID. Heparin 5000 units SUBCUT BID. Pending cardiology evaluation for possible stress test.
[2017-11-10 18:37] LABS: Creatine Kinase 74 U/L (30-135)
[2017-11-10 18:50] LABS: Creatine Kinase MB 0.4 ng/mL (0.0-2.4); Troponin I <0.012 ng/mL (0.000-0.034)
[2017-11-10 20:33] LABS: Glucose,Whole Blood 133 mg/dL (75-99)
[2017-11-10] MEDS: FAMOTIDINE 20 MG TAB PO SCH (20:47)
[2017-11-10] MEDS: HEPARIN SODIUM,PORCINE 5,000 UNIT/ML 1 ML VIAL SQ SCH (20:47)
[2017-11-11 00:52] LABS: Creatine Kinase 72 U/L (30-135)
[2017-11-11 00:54] LABS: Cholesterol 230 mg/dL (<200); HDL Cholesterol 36 mg/dL (40-60); LDL Cholesterol,Calculated 136 mg/dL (0-99); Triglycerides 288 mg/dL (<150)
[2017-11-11 01:04] LABS: Creatine Kinase MB 0.4 ng/mL (0.0-2.4); Troponin I <0.012 ng/mL (0.000-0.034)
[2017-11-11] MEDS ORDERED: LEVOTHYROXINE 100 MCG TAB PO SCH (06:30)
[2017-11-11 06:53] LABS: Glucose,Whole Blood 113 mg/dL (75-99)
[2017-11-11 07:33] VITALS: RESP 18
--- NOTE | 2017-11-11 07:33 | CONS ---
CONSULTATION Mrs. Tran is a 42-year-old female who has a history of sarcoidosis, history of anxiety, who presented to the emergency room with symptoms of chest discomfort. Her discomfort was sharp on the left side of the chest, lasting for a few seconds on and off of a few hours. Because of that she came into the emergency room. She had no associated dyspnea. No dizziness. No syncope. She has no history of PND, orthopnea. No peripheral edema. The patient is average in exercise tolerance and no has no associated symptoms. She was seen by Dr. Sprague in September because of symptoms of palpitation and at that time underwent a myocardial perfusion imaging that revealed no evidence of inducible ischemia and her left ventricular systolic function by echocardiography was preserved. Her past medical history is remarkable for history of sarcoidosis and history of Escobedo's palsy. She also has a history of anxiety. Her coronary risk factors are negative for smoking. She has a history of diabetes. She has no hypertension. Her lipid profile is not available. MEDICATION: Her medications include Glucophage 500 mg twice a day, Paxil 10 mg daily, multivitamin, Levoxyl. REVIEW OF SYSTEMS: RESPIRATORY SYSTEM: She has no recent wheezing. No cough. She has history of sarcoidosis, has been seen by faculty research physician, although she cannot recall the name. GI SYSTEM: No recent GI bleed. No peptic ulcer disease. SYSTEM: No dysuria or hematuria. NERVOUS SYSTEM: No history of stroke or seizure. PHYSICAL EXAMINATION: Her blood pressure is running in the 130s to 140s over 80s with the heart rate in the 70s. HEAD: Normocephalic. EYES: Sclerae anicteric. NECK: Good upstroke. No bruit. No jugular venous distention. LUNGS: Clear to auscultation. HEART: Regular rate and rhythm. S1, S2. No S3. No rub or gallop. ABDOMEN: Soft, nontender. Positive bowel sounds. No organomegaly. EXTREMITIES: No edema. Intact distal pulses. LAB DATA: Lab data revealed troponin less than 0.012. Cholesterol 230, LDL 136. BUN and creatinine 11 and 0.54. Potassium 4.2. Hemoglobin 14.3. EKG revealed sinus mechanism with no acute ST-segment changes. Chest x-ray is unremarkable. IMPRESSION: 1. Chest discomfort atypical for ischemic heart disease probably noncardiac. 2. History of diabetes. 3. Hyperlipidemia, not treated. 4. History of sarcoidosis. 5. History of anxiety. RECOMMENDATION: From the cardiac standpoint, I will add to her regimen a statin because of the history of diabetes. Continue rest of medical regimen. She recently underwent a stress test and echocardiogram that were unremarkable. I do not recommend any further cardiac workup at this time. Thank you for this consult. Patient should be able to be discharged home soon and follow as an outpatient with Dr. Sprague. VALERIANO / OSBALDON: [id number] /
[2017-11-11] MEDS: FAMOTIDINE 20 MG TAB PO SCH (08:09)
[2017-11-11] MEDS: HEPARIN SODIUM,PORCINE 5,000 UNIT/ML 1 ML VIAL SQ SCH (08:10)
[2017-11-11] MEDS ORDERED: ASPIRIN 325 MG TAB PO SCH (09:00)
[2017-11-11] MEDS ORDERED: PARoxetine 10 MG TAB PO SCH (09:00)
[2017-11-11] MEDS ORDERED: ATORVASTATIN 20 MG TAB PO SCH (09:00)
[2017-11-11 11:29] VITALS: BP 122/78; PULSE 79; TEMP 97.9
[2017-11-11 12:23] LABS: Glucose,Whole Blood 114 mg/dL (75-99)
--- NOTE | 2017-11-11 12:54 | P.DS ---
Providers Date of admission: 11/10/17 13:43 Expected date of discharge: 11/11/17 Attending physician: Destiny Disla MD Consults: 11/10/17 13:33 Consult Physician Stat Consulting Provider: [facility] Consult Reason/Comments: chest pain Do you want consulting provider notified?: Yes Primary care physician: Azra Zarate MD Hospital Course: Discharge Diagnosis: 1. Noncardiac chest pain 2. Dyslipidemia-patient states she is ALLERGIC to statin therapy and wants to discuss going on cholesterol medication with Dr. Zarate 3. Anxiety 4. Diabetes mellitus type 2 5. Hypothyroidism 6. Morbid obesity with BMI 39.9 7. Small mobile lesion left mid axillary line discussed with Dr. Zarate who will ensure follow-up needed. 8. Sarcoidosis Hospital Course: Patient is a 42-year-old female with a past medical history of diabetes, dyslipidemia, hypothyroidism, and tobacco abuse who presented with chest wall pain. She was slightly tachycardic on arrival to the ER with a pulsatile 104. She was slightly hypertensive at 159/95. Initial EKG was negative. Serial troponins were negative. She was seen by cardiology and has recently had an outpatient stress test and echocardiogram. He determine her stable for discharge and did not feel that this is a cardiac etiology. Her tachycardia and blood pressure improved without any intervention. She recently started Paxil due to increased anxiety. She will follow with her PCP for further evaluation of possible lesion in the left mid axillary line. I discussed the case Dr. Zarate personally. She also follow-up with Dr. Sprague. We did recommend statin therapy however she has been intolerant this in the past. She wants to discuss going on cholesterol medications with Dr. Zarate prior to starting any therapy. This seems reasonable and patient was subsequently discharged home without any medication adjustments. Patient seen and examined at bedside. Reports 2 episodes of intermittent chest pain last night. They both are sharp or squeezing pain in the left mid axillary line. She was due to increased stress or something to do with her sarcoidosis. No chest pain, shortness of breath, or nausea. She reports increased gas. Vital signs reviewed and stable. General: non toxic, no distress, appears at stated age, obese Derm: warm, dry Head: atraumatic, normocephalic, symmetric Eyes: EOMI, no lid lag, anicteric sclera Mouth: no lip lesion, mucus membranes moist Cardiovascular: S1S2 reg, no murmur, positive posterior tibial pulse bilateral, palpable nodule left chest wall mid axillary line 0.5 cm mobile and painful Lungs: CTA bilateral, no rhonchi, no rales , no accessory muscle use Abdominal: soft, nontender to palpation, no guarding, no appreciable organomegaly Ext: no gross muscle atrophy, no edema, no contractures Neuro: CN II-XI grossly intact, no focal neuro deficits Psych: Alert, oriented, appropriate affect A total of 25 minutes of time were spent preparing this complex discharge summary . Pertinent Studies: CXR- no acute process Patient Condition at Discharge: Good Plan - Discharge Summary Discharge Rx Participant: No New Discharge Prescriptions: New Acetaminophen Tab [Tylenol] 650 mg PO Q6HR PRN tab PRN Reason: Mild Pain Or Fever > 100.5 Aspirin 325 mg PO DAILY tab HYDROcodone/APAP 5-325MG [[place] 5-325] 1 each PO Q4HR PRN tab PRN Reason: Moderate Pain Nitroglycerin Sl Tabs [Nitrostat] 0.4 mg SUBLINGUAL Q5M PRN tab PRN Reason: Chest Pain Continue Levothyroxine Sodium [Levoxyl] 200 mcg PO DAILY metFORMIN HCL [Glucophage] 500 mg PO BID PARoxetine HCL [Paxil] 10 mg PO DAILY Multivitamins, Thera [Multivitamin (formulary)] 1 tab PO DAILY Dextran/Hypromellose/Glycerin [Genteal Tears 0.1%-0.2%-0.3%] 1 - 2 drop BOTH EYES 5XD Discharge Medication List Levothyroxine Sodium [Levoxyl] 200 mcg PO DAILY 11/30/14 [History] Dextran/Hypromellose/Glycerin [Genteal Tears 0.1%-0.2%-0.3%] 1 - 2 drop BOTH EYES 5XD 11/10/17 [History] Multivitamins, Thera [Multivitamin (formulary)] 1 tab PO DAILY 11/10/17 [History ] PARoxetine HCL [Paxil] 10 mg PO DAILY 11/10/17 [History] metFORMIN HCL [Glucophage] 500 mg PO BID 11/10/17 [History] Acetaminophen Tab [Tylenol] 650 mg PO Q6HR PRN tab 11/11/17 [Rx] Aspirin 325 mg PO DAILY tab 11/11/17 [Rx] HYDROcodone/APAP 5-325MG [[place] 5-325] 1 each PO Q4HR PRN tab 11/11/17 [Rx] Nitroglycerin Sl Tabs [Nitrostat] 0.4 mg SUBLINGUAL Q5M PRN tab 11/11/17 [Rx] Follow up Appointment(s)/Referral(s): Azra Zarate MD [Primary Care Provider] - 1-2 days Brien Sprague MD [STAFF PHYSICIAN] - 2 Weeks Patient Instructions/Handouts: Chest Pain (GEN) Activity/Diet/Wound Care/Special Instructions: carb consistent heart healthy diet activity as tolerated Discharge Disposition: HOME SELF-CARE
== END 2017-11-11 12:55 | disposition home or self-care (01) ==
LOC: EC 10:41 → 3OBS 13:43
PROVIDERS: ADMIT Internal Medicine; ATTEND Internal Medicine
DX: R07.89 Other chest pain (principal); R00.0 Tachycardia, unspecified; E78.5 Hyperlipidemia, unspecified; F41.9 Anxiety disorder, unspecified; F90.9 Attention-deficit hyperactivity disorder, unspecified type; F32.9 Major depressive disorder, single episode, unspecified; E11.9 Type 2 diabetes mellitus without complications; E03.9 Hypothyroidism, unspecified; D86.9 Sarcoidosis, unspecified; G51.0 Bell's palsy; I10 Essential (primary) hypertension; R22.2 Localized swelling, mass and lump, trunk; E66.01 Morbid (severe) obesity due to excess calories; Z68.39 Body mass index [BMI] 39.0-39.9, adult; Z87.891 Personal history of nicotine dependence; Z79.890 Hormone replacement therapy; Z79.899 Other long term (current) drug therapy; Z79.84 Long term (current) use of oral hypoglycemic drugs; Z88.8 Allergy status to other drugs, medicaments and biological substances; Z82.49 Family history of ischemic heart disease and other diseases of the circulatory system; Z82.61 Family history of arthritis; Z90.49 Acquired absence of other specified parts of digestive tract
CPT/HCPCS: 99285; 96372 ×2; 36415; 93005; 80061; 80053; 82550; 82553; 84484; 85025; 85610; 85730; 81003; 81025; 71046; G0378 ×2; J1644 ×2

== ENCOUNTER → 2017-12-21 | Outpatient (CLI) | payer OTHER ==
--- NOTE | 2017-12-21 11:59 | US ---
EXAMINATION TYPE: US thyroid st tissue head/neck DATE OF EXAM: 12/21/2017 COMPARISON: NONE CLINICAL HISTORY: E03.9 Hypothyroidism.... GLAND SIZE: There may be a very small amount of residual tissue on right, no residual tissue seen on left. Bilateral neck scanned, no evidence of lymphadenopathy. IMPRESSION: Thyroid gland is thought to be atrophic due to treatment changes.
== END | disposition home or self-care (01) ==
LOC: RADUSWWP 11:02
PROVIDERS: ATTEND Family Medicine
DX: E03.9 Hypothyroidism, unspecified (principal); E05.00 Thyrotoxicosis with diffuse goiter without thyrotoxic crisis or storm
CPT/HCPCS: 76536

== ENCOUNTER → 2018-01-04 | Outpatient (CLI) | payer OTHER ==
--- NOTE | 2018-01-04 10:59 | US ---
EXAMINATION TYPE: US axilla LT DATE OF EXAM: 01/04/2018 COMPARISON: NONE CLINICAL HISTORY: M79.89 Left axillary swelling. TECHNIQUE/FINDINGS: Targeted ultrasound was performed at the left palpable abnormality. At the area o f left palpable axilla is a 2.4 x 1.4 x 2.7cm lymph node, slightly enlarged. Cortex is within normal limits measuring 2 mm. No other solid or cystic masses are seen within the left axilla. IMPRESSION: There is a mildly enlarged left axillary lymph node with no cortical thickening. Diagnos tic left mammogram and ultrasound are recommended. If the recommended exams are negative short-term f ollow-up would be recommended for this left axillary lymph node that is mildly enlarged as this could be reactive or neoplastic.
== END | disposition home or self-care (01) ==
LOC: RADUSWWP 09:48
PROVIDERS: ATTEND Family Medicine
DX: M79.89 Other specified soft tissue disorders (principal)

== ENCOUNTER → 2018-01-26 | Outpatient (CLI) | payer OTHER ==
--- NOTE | 2018-01-26 08:59 | MM ---
Reason for exam: clinical finding. Last mammogram was performed 9 months ago. History: Patient is nulliparous. Family history of breast cancer in maternal grandmother at age 40. Took progesterone for 20 years. Indicated problem(s): pain in the left breast. Physical Findings: Nurse did not find any significant physical abnormalities on exam. MG Diagnostic Mammo LT w CAD CC and MLO view(s) were taken of the left breast. Prior study comparison: April 20, 2017, bilateral MG screening mammo w CAD. December 08, 2014, bilateral MG screening mammo w CAD. There are scattered fibroglandular densities. No suspicious abnormality. No significant new findings when compared with previous films. These results were verbally communicated with the patient and result sheet given to the patient on 01/26/18. ASSESSMENT: Negative, BI-RAD 1 RECOMMENDATION: Return to routine screening mammogram schedule for both breasts. Back on schedule for April 2018.
--- NOTE | 2018-01-26 09:01 | USB ---
Reason for exam: additional evaluation requested from abnormal screening. History: Patient is nulliparous. Family history of breast cancer in maternal grandmother at age 40. Took progesterone for 20 years. US Breast LT Left complete breast ultrasound includes all four quadrants, the retroareolar region and axilla. Finding demonstrates a 2 x 1 x 1.8cm lymph node, prominent in size but similar mammographically back to 2015 at axilla. No suspicious sonographic cystic or solid mass. These results were verbally communicated with the patient and result sheet given to the patient on 01/26/18. ASSESSMENT: Benign, BI-RAD 2 RECOMMENDATION: Return to routine screening mammogram schedule for both breasts. Back on schedule. Manage on a clinical basis as these lymph nodes may be related to the patients known sarcoidosis.
== END | disposition home or self-care (01) ==
LOC: RADMAMWWP 07:45
PROVIDERS: ATTEND Family Medicine
DX: M79.89 Other specified soft tissue disorders (principal); R93.89 Abnormal findings on diagnostic imaging of other specified body structures
CPT/HCPCS: 77065

== ENCOUNTER → 2018-01-28 | Outpatient (CLI) | payer OTHER | LOC: LABWHC1 11:35 | PROVIDERS: ATTEND Physician Assistant | DX: E11.9 Type 2 diabetes mellitus without complications (principal) | CPT/HCPCS: 36415; 82565; 84520 ==

== ENCOUNTER → 2018-03-09 | Outpatient (CLI) | payer OTHER ==
[2018-03-09 10:20] LABS: Basophils % (A) 1 %; Eosinophils # (A) 0.2 k/uL (0-0.7); Eosinophils % (A) 3 %; HCT 42.2 % (34.0-46.0); HGB 14.3 gm/dL (11.4-16.0); Lymphocytes # (A) 2.3 k/uL (1.0-4.8); Lymphocytes % (A) 31 %; MCH 28.6 pg (25.0-35.0); MCHC 33.9 g/dL (31.0-37.0); MCV 84.5 fL (80.0-100.0); Mean Platelet Volume 7.9; Monocytes # (A) 0.4 k/uL (0-1.0); Monocytes % (A) 5 %; Neutrophils # (A) 4.4 k/uL (1.3-7.7); Neutrophils % (A) 58 %; Platelet Count 232 k/uL (150-450); RBC 4.99 m/uL (3.80-5.40); RDW 13.5 % (11.5-15.5); WBC 7.5 k/uL (3.8-10.6)
[2018-03-09 16:32] LABS: Albumin 4.3 g/dL (3.80-4.90); Albumin/Globulin Ratio 1.48 (1.20-2.10); Anion Gap 12.1 mmol/L (4.00-12.00); Calcium 9.3 mg/dL (8.7-10.3); Carbon Dioxide 22.9 mmol/L (21.6-31.8); Globulin 2.9 g/dL (1.6-3.3); LDL Cholesterol,Calculated 138.4 mg/dL (0.0-131.0); Potassium 4.2 mmol/L (3.5-5.5); Total Bilirubin 0.7 mg/dL (0.3-1.2); Total Protein 7.2 g/dL (6.2-8.2); VLDL Calculation 46.6 mg/dL (5.00-40.00)
[2018-03-09 16:39] LABS: T4, Free (Free Thyroxine) 1.3 ng/dL (0.80-1.80)
== END ==
LOC: LABWHC1 09:24
PROVIDERS: ATTEND Psychiatry & Neurology Pain Medicine
DX: E78.5 Hyperlipidemia, unspecified (principal); E11.9 Type 2 diabetes mellitus without complications; E03.9 Hypothyroidism, unspecified; D86.89 Sarcoidosis of other sites; R90.82 White matter disease, unspecified; R42 Dizziness and giddiness
CPT/HCPCS: 36415; 80053; 80061; 82040; 82042; 82043; 82570; 82784; 83036; 83916; 84439; 84443; 85025

== ENCOUNTER → 2018-05-17 | Outpatient (CLI) | payer OTHER ==
--- NOTE | 2018-05-19 11:03 | MM ---
Reason for exam: screening (asymptomatic). Last mammogram was performed 4 months ago. History: Patient is nulliparous. Family history of breast cancer in maternal grandmother at age 40. Took progesterone for 20 years. Physical Findings: A clinical breast exam by your physician is recommended on an annual basis and results should be correlated with mammographic findings. MG Screening Mammo w CAD Bilateral CC and MLO view(s) were taken. Prior study comparison: January 26, 2018, left breast MG diagnostic mammo LT w CAD. April 20, 2017, bilateral MG screening mammo w CAD. There are scattered fibroglandular densities. No suspicious abnormality. No significant changes when compared with prior studies. ASSESSMENT: Negative, BI-RAD 1 RECOMMENDATION: Routine screening mammogram of both breasts in 1 year.
== END | disposition home or self-care (01) ==
LOC: RADMAMWWP 08:22
PROVIDERS: ATTEND Family Medicine
DX: Z12.31 Encounter for screening mammogram for malignant neoplasm of breast (principal)
CPT/HCPCS: 77067

== ENCOUNTER → 2018-07-20 | Outpatient (CLI) | payer OTHER | END | disposition home or self-care (01) | LOC: LABWHC1 09:13 | PROVIDERS: ATTEND Psychiatry & Neurology Pain Medicine | DX: R42 Dizziness and giddiness (principal); R90.82 White matter disease, unspecified | CPT/HCPCS: 36415; 82040; 82042; 82784; 83916 ==

== ENCOUNTER → 2018-09-23 | Outpatient (CLI) | payer OTHER ==
--- NOTE | 2018-09-23 13:35 | XR ---
EXAMINATION TYPE: XR chest 2V DATE OF EXAM: 09/23/2018 COMPARISON: 2017 HISTORY: Difficulty in breathing and left-sided chest pain. TECHNIQUE: Frontal and lateral views of the chest are obtained. FINDINGS: There is no focal air space opacity, pleural effusion, or pneumothorax seen. The cardiac silhouette size is within normal limits. The osseous structures are intact. IMPRESSION: No acute cardiopulmonary process.
== END | disposition home or self-care (01) ==
LOC: RADXRMAIN 11:52
PROVIDERS: ATTEND Family Medicine
DX: R06.02 Shortness of breath (principal)
CPT/HCPCS: 71046

== ENCOUNTER 2018-10-06 14:41 | Inpatient (IN) | payer OTHER ==
[2018-10-06] MEDS ORDERED: SODIUM CHLORIDE 0.9% 500 ML 500 ML IV STA (15:25)
--- NOTE | 2018-10-06 15:38 | ED ---
General Adult HPI - General Chief complaint: Arrhythmia/Palpitations Stated complaint: Low heart rate Time Seen by Provider: 10/06/18 14:50 Source: patient, RN notes reviewed Mode of arrival: wheelchair Limitations: no limitations - History of Present Illness Initial comments: This is a 43-year-old female presents emergency department stating that for the last 3 weeks she's been noting that her heart rate gets down into the 40s. Patient states she is occasionally short of breath when she exerts herself any degree but in general she is not feeling short of breath. Patient denies chest pain. Patient denies any fever chills. Patient denies any previous heart problems. Patient states she has recently been diagnosed with multiple sclerosis. - Related Data Home Medications Medication Instructions Recorded Confirmed Levothyroxine Sodium [Levoxyl] 200 mcg PO DAILY@1200 11/30/14 10/06/18 metFORMIN HCL [Glucophage] 500 mg PO BID@1700,2100 11/10/17 10/06/18 Ezetimibe [Zetia] 10 mg PO DAILY@1200 10/06/18 10/06/18 Hydroxychloroquine Sulfate 200 mg PO BID@1200,2100 10/06/18 10/06/18 [Plaquenil] PARoxetine HCL [Paxil] 30 mg PO DAILY@1200 10/06/18 10/06/18 Whisperject 200mm/125mm/85.75mm 1 injection SQ MOWEFR 10/06/18 10/06/18 Allergies Allergy/AdvReac Type Severity Reaction Status Date / Time Uoenzqp-Fms-Hdk Reductase AdvReac FACIAL Verified 10/06/18 16:16 Inhibitor NUMBNESS Review of Systems ROS Statement: Those systems with pertinent positive or pertinent negative responses have been documented in the HPI. ROS Other: All systems not noted in ROS Statement are negative. Past Medical History Past Medical History: Diabetes Mellitus, Hyperlipidemia, Hypertension, Thyroid Disorder Additional Past Medical History / Comment(s): "dry eyes", "in past had steroid induced gluacoma-resolved", add/adhd, anxiety, depression,"sarcoidosis", eczema, bells palsy affected rt eye,"irreg heart beat"concussion age 12 stated has some learning disablity-problems with spelling.pt stated "was told in past that an ekg had evidence of prior heart attack". pt stated "had stress test approx 6 weeks ago -they never called to tell me if there was a problem so it must have been ok" History of Any Multi-Drug Resistant Organisms: None Reported Past Surgical History: Cholecystectomy Past Anesthesia/Blood Transfusion Reactions: Motion Sickness Additional Past Anesthesia/Blood Transfusion Reaction / Comment(s): davin Past Psychological History: ADD/ADHD, Anxiety Smoking Status: Never smoker Past Alcohol Use History: None Reported Past Drug Use History: None Reported - Past Family History Mother Family Medical History: AFIB, Osteoarthritis (OA) Father Family Medical History: Osteoarthritis (OA), Thyroid Disorder General Exam - General Exam Comments Initial Comments: GENERAL: Patient is well-developed and well-nourished. Patient is nontoxic and well- hydrated and is in no acute distress. ENT: Neck is soft and supple. No significant lymphadenopathy is noted. Oropharynx is clear. Moist mucous membranes. Neck has full range of motion without eliciting any pain. EYES: The sclera were anicteric and conjunctiva were pink and moist. Extraocular movements were intact and pupils were equal round and reactive to light. Eyelids were unremarkable. PULMONARY: Unlabored respirations. Good breath sounds bilaterally. No audible rales rhonchi or wheezing was noted. CARDIOVASCULAR: Patient has an irregular heart rate at a rate of about 50 beats a minute ABDOMEN: Soft and nontender with normal bowel sounds. No palpable organomegaly was noted. There is no palpable pulsatile mass. SKIN: Skin is clear with no lesions or rashes and otherwise unremarkable. NEUROLOGIC: Patient is alert and oriented x3. Cranial nerves II through XII are grossly intact. Motor and sensory are also intact. Normal speech, volume and content. Symmetrical smile. MUSCULOSKELETAL: Normal extremities with adequate strength and full range of motion. No lower extremity swelling or edema. No calf tenderness. LYMPHATICS: No significant lymphadenopathy is noted PSYCHIATRIC: Normal psychiatric evaluation. 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 Patient's EKG shows no ST segment elevation or depression or T-wave abnormalities noted. I spoke with Dr. Nieto and he agreed with this interpretation. Chest x-ray shows no acute abnormality. I spoke with some physicians agreed to admit the patient admitted the patient wrote admitting orders I consult cardiology. - Lab Data Result diagrams: 10/06/18 15:23 10/06/18 15:23 Lab Results 10/06/18 10/06/18 10/06/18 Range/Units 15:23 15:23 15:23 WBC 7.7 (3.8-10.6) k/uL RBC 4.91 (3.80-5.40) m/uL Hgb 14.2 (11.4-16.0) gm/dL Hct 42.0 (34.0-46.0) % MCV 85.4 (80.0-100.0) fL MCH 28.9 (25.0-35.0) pg MCHC 33.9 (31.0-37.0) g/dL RDW 13.9 (11.5-15.5) % Plt Count 201 (150-450) k/uL Neutrophils % 64 % Lymphocytes % 25 % Monocytes % 6 % Eosinophils % 3 % Basophils % 1 % Neutrophils # 4.9 (1.3-7.7) k/uL Lymphocytes # 1.9 (1.0-4.8) k/uL Monocytes # 0.5 (0-1.0) k/uL Eosinophils # 0.2 (0-0.7) k/uL Basophils # 0.1 (0-0.2) k/uL PT 9.8 (9.0-12.0) sec INR 0.9 (<1.2) APTT 25.4 (22.0-30.0) sec Sodium 141 (137-145) mmol/L Potassium 4.1 (3.5-5.1) mmol/L Chloride 107 (98-107) mmol/L Carbon Dioxide 24 (22-30) mmol/L Anion Gap 10 mmol/L BUN 11 (7-17) mg/dL Creatinine 0.48 L (0.52-1.04) mg/dL Est GFR (CKD-EPI)AfAm >90 (>60 ml/min/1.73 sqM) Est GFR (CKD-EPI)NonAf >90 (>60 ml/min/1.73 sqM) Glucose 99 (74-99) mg/dL Calcium 9.7 (8.4-10.2) mg/dL Magnesium 1.8 (1.6-2.3) mg/dL Total Bilirubin 0.5 (0.2-1.3) mg/dL AST 27 (14-36) U/L ALT 22 (9-52) U/L Alkaline Phosphatase 69 (38-126) U/L Troponin I (0.000-0.034) ng/mL Total Protein 7.4 (6.3-8.2) g/dL Albumin 4.0 (3.5-5.0) g/dL Free T4 1.36 (0.78-2.19) ng/dL 10/06/18 Range/Units 15:23 WBC (3.8-10.6) k/uL RBC (3.80-5.40) m/uL Hgb (11.4-16.0) gm/dL Hct (34.0-46.0) % MCV (80.0-100.0) fL MCH (25.0-35.0) pg MCHC (31.0-37.0) g/dL RDW (11.5-15.5) % Plt Count (150-450) k/uL Neutrophils % % Lymphocytes % % Monocytes % % Eosinophils % % Basophils % % Neutrophils # (1.3-7.7) k/uL Lymphocytes # (1.0-4.8) k/uL Monocytes # (0-1.0) k/uL Eosinophils # (0-0.7) k/uL Basophils # (0-0.2) k/uL PT (9.0-12.0) sec INR (<1.2) APTT (22.0-30.0) sec Sodium (137-145) mmol/L Potassium (3.5-5.1) mmol/L Chloride (98-107) mmol/L Carbon Dioxide (22-30) mmol/L Anion Gap mmol/L BUN (7-17) mg/dL Creatinine (0.52-1.04) mg/dL Est GFR (CKD-EPI)AfAm (>60 ml/min/1.73 sqM) Est GFR (CKD-EPI)NonAf (>60 ml/min/1.73 sqM) Glucose (74-99) mg/dL Calcium (8.4-10.2) mg/dL Magnesium (1.6-2.3) mg/dL Total Bilirubin (0.2-1.3) mg/dL AST (14-36) U/L ALT (9-52) U/L Alkaline Phosphatase (38-126) U/L Troponin I <0.012 (0.000-0.034) ng/mL Total Protein (6.3-8.2) g/dL Albumin (3.5-5.0) g/dL Free T4 (0.78-2.19) ng/dL Disposition Clinical Impression: Bradycardia Disposition: ADMITTED IP TO THIS HOSP Referrals: Azra Zarate MD [Primary Care Provider] - 1-2 days Time of Disposition: 16:23
[2018-10-06 15:45] LABS: Basophils # (A) 0.1 k/uL (0-0.2); Basophils % (A) 1 %; Eosinophils # (A) 0.2 k/uL (0-0.7); Eosinophils % (A) 3 %; HGB 14.2 gm/dL (11.4-16.0); Lymphocytes # (A) 1.9 k/uL (1.0-4.8); Lymphocytes % (A) 25 %; MCH 28.9 pg (25.0-35.0); MCHC 33.9 g/dL (31.0-37.0); MCV 85.4 fL (80.0-100.0); Mean Platelet Volume 8.5; Monocytes # (A) 0.5 k/uL (0-1.0); Monocytes % (A) 6 %; Neutrophils # (A) 4.9 k/uL (1.3-7.7); Neutrophils % (A) 64 %; Platelet Count 201 k/uL (150-450); RBC 4.91 m/uL (3.80-5.40); RDW 13.9 % (11.5-15.5); WBC 7.7 k/uL (3.8-10.6)
[2018-10-06 15:52] LABS: INR 0.9 (<1.2); Partial Thromboplastin Time 25.4 sec (22.0-30.0); Prothrombin Time 9.8 sec (9.0-12.0)
[2018-10-06 16:05] LABS: ALT 22 U/L (9-52); AST 27 U/L (14-36); African American GFR (CKD) >90 (>60 ml/min/1.73 sqM); Alkaline Phosphatase 69 U/L (38-126); Anion Gap 10 mmol/L; Blood Urea Nitrogen 11 mg/dL (7-17); Calcium 9.7 mg/dL (8.4-10.2); Carbon Dioxide 24 mmol/L (22-30); Chloride 107 mmol/L (98-107); Glucose 99 mg/dL (74-99); Magnesium 1.8 mg/dL (1.6-2.3); Potassium 4.1 mmol/L (3.5-5.1); Sodium 141 mmol/L (137-145); Total Bilirubin 0.5 mg/dL (0.2-1.3); Total Protein 7.4 g/dL (6.3-8.2)
--- NOTE | 2018-10-06 16:12 | XR ---
EXAMINATION TYPE: XR chest 2V DATE OF EXAM: 10/06/2018 COMPARISON: 09/23/2018 HISTORY: 43-year-old female dysrhythmia TECHNIQUE: PA and lateral views FINDINGS: Heart upper limits of normal in size. Aorta and pulmonary vasculature within normal limits. Mild néstor bronchial cuffing. Diffuse interstitial prominence. No consolidation or pleural effusion. IMPRESSION: 1. Borderline heart size. 2. Diffuse interstitial prominence could reflect bronchitis, asthma, or mild pulmonary vascular conge stion. Clinically correlate.
[2018-10-06 16:21] LABS: T4, Free (Free Thyroxine) 1.36 ng/dL (0.78-2.19)
[2018-10-06] MEDS ORDERED: NITROGLYCERIN SL TABS 0.4 MG TAB SUBLINGUAL PRN (16:24)
--- NOTE | 2018-10-06 18:07 | P.HPIM ---
History of Present Illness H&P Date: 10/06/18 Chief Complaint: slow heart rate The patient is a 43-year-old obese female with a past medical history of multiple sclerosis previously on glatiramer, dermal sarcoidosis, hypothyroidism, type 2 diabetes who presents to the ER after being referred by her PCP Dr. Zarate. Apparently the patient has been having slowed heart rate approximately for the last 4 weeks, and she was referred to cardiology And Holter monitoring was attempted however for some reason the results were not transmitted correctly at which point Holter monitoring was reattempted yesterday but was not completed due to the leads not sticking. The patient has been having sensations like her heart was slow she also complains of exertional dyspnea, she denies any lightheadedness or dizziness. The patient reports having a echocardiogram performed by cardiology in clinic. Patient has a recent history of multiple sclerosis and has been on glatiramer for the last 4 months but discontinued the medication due to concern that it was causing her bradycardia. The patient denies any syncope or presyncope, she reports her symptoms are not as prevalent when she is walking but she consents sense of sensation of slowed heart rate more when she is at rest. Patient has a history of hypertension but denies being on any medications for over the last 2 years. In the ER the patient had a comprehensive workup EKG showed junctional rhythm with PVCs and bigeminy pattern without suggestion of acute ischemia, A chest x- ray showed diffuse interstitial pattern which corrected for bronchitis asthma or mild pulmonary vascular congestion. Admission labs are unremarkable TSH was 0.5 free T4 1 0.36 troponin less than 0.012. The patient was recommended for admission Review of Systems Pertinent positives per HPI all other systems are negative Past Medical History Past Medical History: Diabetes Mellitus, Hyperlipidemia, Hypertension, Thyroid Disorder Additional Past Medical History / Comment(s): "dry eyes", "in past had steroid induced gluacoma-resolved", add/adhd, anxiety, depression,"sarcoidosis", eczema, bells palsy affected rt eye,"irreg heart beat"concussion age 12 stated has some learning disablity-problems with spelling.pt stated "was told in past that an ekg had evidence of prior heart attack". pt stated "had stress test approx 6 weeks ago -they never called to tell me if there was a problem so it must have been ok" History of Any Multi-Drug Resistant Organisms: None Reported Past Surgical History: Cholecystectomy Past Anesthesia/Blood Transfusion Reactions: Motion Sickness Additional Past Anesthesia/Blood Transfusion Reaction / Comment(s): clausterphoba Past Psychological History: ADD/ADHD, Anxiety Smoking Status: Never smoker Past Alcohol Use History: None Reported Past Drug Use History: None Reported - Past Family History Mother Family Medical History: AFIB, Osteoarthritis (OA) Father Family Medical History: Osteoarthritis (OA), Thyroid Disorder Medications and Allergies Home Medications Medication Instructions Recorded Confirmed Type Levothyroxine Sodium [Levoxyl] 200 mcg PO DAILY@1200 11/30/14 10/06/18 History metFORMIN HCL [Glucophage] 500 mg PO BID@1700,2100 11/10/17 10/06/18 History Ezetimibe [Zetia] 10 mg PO DAILY@1200 10/06/18 10/06/18 History Hydroxychloroquine Sulfate 200 mg PO BID@1200,2100 10/06/18 10/06/18 History [Plaquenil] PARoxetine HCL [Paxil] 30 mg PO DAILY@1200 10/06/18 10/06/18 History Whisperject 200mm/125mm/85.75mm 1 injection SQ MOWEFR 10/06/18 10/06/18 History Allergies Allergy/AdvReac Type Severity Reaction Status Date / Time Ayccmdc-Upb-Lln Reductase AdvReac FACIAL Verified 10/06/18 16:16 Inhibitor NUMBNESS Physical Exam Vitals: Vital Signs Temp Pulse Pulse Resp BP Pulse Ox 10/06/18 16:27 42 L 16 127/56 97 10/06/18 15:34 34 L 10/06/18 15:18 56 L 17 100 10/06/18 14:50 98.9 F 38 L 18 98 Intake and Output 10/06/18 10/06/18 10/06/18 06:59 14:59 22:59 Other: Weight 117.934 kg Constitutional: No acute distress, conversant, pleasant Eyes: Anicteric sclerae, moist conjunctiva, no lid-lag, PERRLA ENMT: NC/AT,Oropharynx clear, no erythema, exudates Neck:Supple, FROM, no masses, or JVD, No carotid bruits; No thyromegaly Lungs: Clear to auscultation, Clear to percussion, Normal respiratory effort, no accessory muscle use Cardiovascular: Bradycardia, No murmurs, gallops, or rubs no peripheral edema Abdominal: Soft Nontender, nom distended, no guarding, no rebound or rigidity, Normoactive bowel sounds No hepatomegaly, No splenomegaly, No palpable mass No abdominal wall hernia noted Skin: Periorbital plaque in the epicanthal area bilaterally. Extremities:No digital cyanosis No clubbing, Pedal pulses intact and symmetrical Radial pulses intact and symmetrical Normal gait and station, No calf tenderness Psychiatric: Alert and oriented to person, place and time, Appropriate affect Intact judgement Neuro: Noted facial asymmetry with some ptosis and facial droop on the right side of the face Results CBC & Chem 7: 10/06/18 15:23 10/06/18 15:23 Labs: Abnormal Lab Results - Last 24 Hours (Table) 10/06/18 Range/Units 15:23 Creatinine 0.48 L (0.52-1.04) mg/dL Assessment and Plan Assessment: Chronic conditions Dyslipidemia ALLERGIC to statins Anxiety and depression (1) Bradycardia Current Visit: Yes Status: Acute Code(s): R00.1 - BRADYCARDIA, UNSPECIFIED SNOMED Code(s): 48498444 (2) Type 2 diabetes mellitus Current Visit: Yes Status: Acute Code(s): E11.9 - TYPE 2 DIABETES MELLITUS WITHOUT COMPLICATIONS SNOMED Code(s): 49906408 (3) Hypothyroidism Current Visit: Yes Status: Acute Code(s): E03.9 - HYPOTHYROIDISM, UNSPECIFIED SNOMED Code(s): 95857753 (4) Multiple sclerosis Current Visit: Yes Status: Acute Code(s): G35 - MULTIPLE SCLEROSIS SNOMED Code(s): 53667713 (5) Sarcoidosis Current Visit: Yes Status: Acute Code(s): D86.9 - SARCOIDOSIS, UNSPECIFIED SNOMED Code(s): 22967998 Plan: Patient is placed on observation anticipated less than 2 midnight stay after presenting with complaints of bradycardia found to have a junctional bradycardia on EKG, the patient does have risk factors given history of sarcoidosis there is a potential for cardiac involvement causing bradycardia. Patient also has recently been on glatiramer known to cause bradycardia although rare, we'll plan to monitor the patient on telemetry, thyroid studies of already been checked and are normal. We'll plan to order echocardiogram and consult cardiology for further recommendations and continue her home medications and follow follow the patient's clinical course. CODE STATUS: Full code Discussed plan of care with: Patient Anticipated discharge: 1-[address]: Home Prophylaxis SCDs and heparin Time with Patient: Greater than 30
[2018-10-06 20:18] VITALS: BMI 41.9
[2018-10-06] MEDS ORDERED: metFORMIN 500 MG TAB PO SCH (21:00)
[2018-10-06 21:48] LABS: Glucose,Whole Blood 107 mg/dL (75-99)
--- NOTE | 2018-10-06 23:58 | CONS ---
CONSULTATION Mrs. Tran is a 43-year-old female with known history of diabetes, history of multiple sclerosis, followed by Dr. Woodruff, who presented with bradycardia. She has been noting those symptoms for about a month, was seen by Dr. Izaguirre, and according to her, had a DCG scheduled, but for some reason technically there was no tracing and she had a repeat one yesterday, but the leads came off. She has noted that her heart rate was dropping down to the 40s. She feels fatigued with it and at times dizzy, but she has no syncope. She is not very active physically. She has no chest discomfort. She has no PND. No orthopnea. No peripheral edema. Her coronary risk factors are remarkable for diabetes and hyperlipidemia. She is a nonsmoker. She was started 4 months ago on Whisperject injection for her multiple sclerosis. MEDICATIONS: Her medications include: 1. Whisperject. 2. Plaquenil. 3. Zetia. 4. Glucophage 500 mg twice a day. 5. Levoxyl 0.2 mg daily. 6. Paxil. REVIEW OF SYSTEMS: RESPIRATORY SYSTEM: She has no history of wheezing, cough. She has no history of obstructive lung disease. GI SYSTEM: No recent GI bleeding. No peptic ulcer disease. SYSTEM: No dysuria or hematuria. NERVOUS SYSTEM: She has a history of multiple sclerosis. PHYSICAL EXAMINATION: She is a 43-year-old female, alert, oriented, in no apparent distress. Blood pressure 127/56 with a heart rate in the mid 40s to 50s. HEAD: Normocephalic. EYES: Sclerae anicteric. NECK: Good carotid upstroke. No bruit. No jugular venous distention. LUNGS: Clear to auscultation. HEART: Regular rate and rhythm. S1, S2 with extrasystole. No rub or gallop. ABDOMEN: Soft, nontender. Positive bowel sounds. No organomegaly. EXTREMITIES: No edema. Intact distal pulses. LAB DATA/IMAGING: TSH of 0.58, free T4 of 1.36. Troponin less than 0.012. BUN and creatinine are 11 and 0.48. Potassium 4.1, hemoglobin 14.2. EKG revealed sinus activity noted sporadically. There is bigeminal ventricular ectopic activity and what appears to be junctional rhythm. IMPRESSION: 1. Bradycardia with episode of junctional rhythm and bigeminal ventricular ectopic activity; etiology unclear. No evidence to suggest ischemic etiology. 2. History of multiple sclerosis. 3. History of diabetes. 4. History of hyperlipidemia. RECOMMENDATIONS: I will review the results of her workup that was done by Dr. Izaguirre. I will obtain echocardiogram with Doppler. Will monitor her on telemetry and, depending on her progress, further recommendations will be made. Thank you for this consult. Will follow with you. MMODL / IJN: [id number] /
[2018-10-07] MEDS: HYDROXYCHLOROQUINE SULFATE 200 MG TAB PO SCH ×2 (01:55→11:49)
[2018-10-07] MEDS: HEPARIN SODIUM,PORCINE 5,000 UNIT/ML 1 ML VIAL SQ SCH ×2 (01:55→08:33)
[2018-10-07 04:29] LABS: Cholesterol 132 mg/dL (<200); HDL Cholesterol 28 mg/dL (40-60); LDL Cholesterol,Calculated 69 mg/dL (0-99); Triglycerides 174 mg/dL (<150)
[2018-10-07 06:22] LABS: Glucose,Whole Blood 111 mg/dL (75-99)
[2018-10-07] MEDS ORDERED: PANTOPRAZOLE 40 MG TABLET PO SCH (07:30)
[2018-10-07 08:52] VITALS: RESP 18
[2018-10-07] MEDS ORDERED: ASPIRIN 325 MG TAB PO SCH (09:00)
[2018-10-07 11:35] VITALS: BP 133/82; PULSE 48; TEMP 97.9
[2018-10-07 11:38] LABS: Glucose,Whole Blood 128 mg/dL (75-99)
--- NOTE | 2018-10-07 11:47 | PN ---
PROGRESS NOTE Mrs. Tran is a 43-year-old female with a history of diagnosis of multiple sclerosis, who presented with symptoms of bradycardia. She had sinus mechanism with ectopic ventricular activity. She is predominantly in sinus mechanism, at this time in sinus bradycardia. She denies any symptoms of chest pain. She feels tired but no syncope. Her breathing is stable. She has been followed by Dr. Sprague on a regular basis and has underwent an echocardiogram recently that revealed a preserved left ventricular size and systolic function. PHYSICAL EXAMINATION: Blood pressure 137/70 with the heart rate in the 40s to 50s. LUNGS: Clear. HEART: Regular rate and rhythm. S1, S2. No S3. No rub appreciated. ABDOMEN: Soft, obese, nontender. EXTREMITIES: No edema. LAB DATA: Lab data revealed a troponin less than 0.012, cholesterol 132, LDL of 69. IMPRESSION: 1. Sinus bradycardia, etiology unclear. No long pauses. 2. History of hyperlipidemia. 3. Diabetes mellitus. 4. History of multiple sclerosis. 5. Symptoms of fatigue. RECOMMENDATION: At this time, I see no indication for permanent pacemaker implantation. The patient has history of sarcoidosis that could be causing her bradycardia, but what I would recommend to do is obtain an event monitor as an outpatient and follow up with Dr. Sprague if she has evidence of significant symptomatic bradycardia, then at that time, permanent pacemaker implantation will be recommended. At this point, she may be able to be discharged home today and follow up with Dr. Sprague as an outpatient. MMODL / IJN: [id number] /
[2018-10-07] MEDS ORDERED: PARoxetine 10 MG TAB PO SCH (12:00)
[2018-10-07] MEDS ORDERED: EZETIMIBE 10 MG TAB PO SCH (12:00)
[2018-10-07] MEDS ORDERED: LEVOTHYROXINE 100 MCG TAB PO SCH (12:00)
--- NOTE | 2018-10-07 12:41 | P.CNNES ---
History of Present Illness Consult date: 10/07/18 Requesting physician: Erick Li Reason for Consult: Multiple sclerosis Chief complaint: Slow heart rate, wants to discuss MS meds History of Present Illness: This is a 43 RH female h/o RRMS followed by Dr. Oshea who has her on glatiramer as DMT. Sounds like this is the only DMT she has been tried. She has never been on oral DMT or infusion therapy. She has had pulse glucocorticoids for MS exacerbation. Patient also has h/o sarcoidosis that according to patient has affected her lungs, skin and brain. She is concerned whether glatiramer may be causing her bradycardia. She has been seen by cardiology who points out her sarcoidosis itself can cause bradycardia. They have recommended no permanent pacemaker implantation and that she should be set up for ouptatient event monitor. She and her family have many questions for me about different DMT options. Review of Systems I have performed a 14-point organ ROS with patient; pertinents are as per HPI. Past Medical History Past Medical History: Diabetes Mellitus, Hyperlipidemia, Hypertension, Thyroid Disorder Additional Past Medical History / Comment(s): "dry eyes", "in past had steroid induced gluacoma-resolved", add/adhd, anxiety, depression,"sarcoidosis", eczema, bells palsy affected rt eye,"irreg heart beat"concussion age 12 stated has some learning disablity-problems with spelling.pt stated "was told in past that an ekg had evidence of prior heart attack". pt stated "had stress test approx 6 weeks ago -they never called to tell me if there was a problem so it must have been ok" History of Any Multi-Drug Resistant Organisms: None Reported Past Surgical History: Cholecystectomy Past Anesthesia/Blood Transfusion Reactions: Motion Sickness Additional Past Anesthesia/Blood Transfusion Reaction / Comment(s): davin Past Psychological History: ADD/ADHD, Anxiety Smoking Status: Never smoker Past Alcohol Use History: None Reported Past Drug Use History: None Reported - Past Family History Mother Family Medical History: AFIB, Osteoarthritis (OA) Father Family Medical History: Osteoarthritis (OA), Thyroid Disorder Medications and Allergies Home Medications Medication Instructions Recorded Confirmed Type Levothyroxine Sodium [Levoxyl] 200 mcg PO DAILY@1200 11/30/14 10/06/18 History metFORMIN HCL [Glucophage] 500 mg PO BID@1700,2100 11/10/17 10/06/18 History Ezetimibe [Zetia] 10 mg PO DAILY@1200 10/06/18 10/06/18 History Hydroxychloroquine Sulfate 200 mg PO BID@1200,2100 10/06/18 10/06/18 History [Plaquenil] PARoxetine HCL [Paxil] 30 mg PO DAILY@1200 10/06/18 10/06/18 History Whisperject 200mm/125mm/85.75mm 1 injection SQ MOWEFR 10/06/18 10/06/18 History Allergies Allergy/AdvReac Type Severity Reaction Status Date / Time Opdquya-Dfl-Bgp Reductase AdvReac FACIAL Verified 10/06/18 16:16 Inhibitor NUMBNESS Physical Examination - Vital Signs Vital Signs: Vital Signs Temp Pulse Pulse Resp BP BP Pulse Ox 10/07/18 11:34 97.9 F 48 L 18 133/82 98 10/07/18 08:00 97.8 F 40 L 18 137/76 95 10/07/18 04:00 98 F 49 L 16 132/72 97 10/07/18 00:00 97.8 F 45 L 16 116/76 96 10/06/18 20:31 98.5 F 55 L 16 128/68 10/06/18 20:22 97 10/06/18 20:05 98.5 F 55 L 16 128/68 97 10/06/18 16:27 42 L 16 127/56 97 10/06/18 15:34 34 L 10/06/18 15:18 56 L 17 100 10/06/18 14:50 98.9 F 38 L 18 98 Intake and Output 10/06/18 10/07/18 10/07/18 22:59 06:59 14:59 Intake Total 118 Balance 118 Intake: Oral 118 Other: Voiding Method Toilet Toilet # Voids 1 2 Weight 122 kg Gen NAD Pleasant and cooperative HEENT NCAT Sclera without icterus O/P clear Neck Supple No carotid bruit Cor RRR no m/r/g Lungs CTAB Abd Soft NTND +BS Ext Warm to touch No edema Neuro MS A+Ox4 Normal fluency Able to follow all commands CN PERRL VFF no APD EOMI no nystagmus Decreased right NLF and ptosis Masseter's symmetric Hearing intact to normal voice bilaterally Speech not dysarthric Equal elevation of palate Tongue midline Sym shrug and SCM bilaterally Motor Normal bulk/tone No pronator or tremors Strength 5/5 sym throughout Sens Intact to LT x4 No neglect Coord No dysmetria on FTN bilaterally DTRs 2+/4 sym throughout Toes downgoing bilaterally No clonus at achilles Gait Deferred Results - Laboratory Findings CBC and BMP: 10/06/18 15:23 10/06/18 15:23 Abnormal Lab Findings: Abnormal Labs 10/06/18 10/06/18 10/07/18 15:23 21:47 03:49 Creatinine 0.48 L POC Glucose (mg/dL) 107 H Triglycerides 174 H HDL Cholesterol 28 L 10/07/18 10/07/18 06:21 11:36 Creatinine POC Glucose (mg/dL) 111 H 128 H Triglycerides HDL Cholesterol Assessment and Plan Assessment: RRMS, stable. Plan: -Extensive discussion held with patient and family regarding different disease modifying therapy options including traditional injectable DMTs such as interferons and glatiramer, oral DMT such as Gilenya, Aubagio and Tecfidera, and infusion therapies that are almost all monoclonal antibodies except for N ovantrone. I would stay away from Gilenya and Novantrone that are known to cause cardiac side effects. Discussed at length the mechanism of action and side effect profile of glatiramer. From a cardiac perspective, transient palpitations and tachycardia are much more common than bradycardia. Family point out patient has cognitive difficulties and trouble with compliance with glatiramer's tiw schedule. I did provide an overview with alternative options, primarily monoclonal antibody infusions that follow different administration schedules. Obviously, final decision on DMT should be made between her and her outpatient neurologist as a team. -I do not see evidence of acute MS exacerbation. She does not need pulse glucocorticoid during this hospitalization. -Patient is stable for discharge from an acute neuro standpoint. Will revisit patient prn. Please call with new ?. Time with Patient: Greater than 30 (Time spent in direct patient care, greater than 50% of which was spent in [id number] counseling and coordination of care: 70 minutes)
--- NOTE | 2018-10-07 16:21 | P.DS ---
Providers Date of admission: 10/06/18 16:25 Expected date of discharge: 10/07/18 Attending physician: Erick Li MD Consults: 10/06/18 16:25 Consult Physician Urgent Consulting Provider: [facility] Consult Reason/Comments: Bradycardia Do you want consulting provider notified?: Yes 10/07/18 09:19 Consult Physician Routine Consulting Provider: Wendi Teran Consult Reason/Comments: multiple sclerosis medication Do you want consulting provider notified?: Yes Primary care physician: Azra Zarate MD - Discharge Diagnosis(es) (1) Bradycardia Status: Acute (2) Type 2 diabetes mellitus Status: Acute (3) Hypothyroidism Status: Acute (4) Multiple sclerosis Status: Acute (5) Sarcoidosis Status: Acute Hospital Course: The patient is a morbidly obese 43-year-old female with a past smoker history of MS, dermal sarcoidosis, type 2 diabetes who was placed in observation due to concern for bradycardia. Her EKG was reviewed and indicated junctional rhythm with bigeminal ventricular ectopy with no evidence of ischemic etiology, echocardiogram was ordered and a preliminary read by cardiology was unremarkable. Patient had previously been on glatiramer for her multiple sclerosis but had a slightly discontinued the medication due to concern that it was causing some of her symptoms of bradycardia, and neurology was consulted and the patient was seen by neurology who discussed varying DMT options for her MS the patient was cleared for discharge by cardiology with plans for outpatient Holter/event monitoring. This discharge process took approximately 30 minutes Focused exam Cardiovascular: Regular rate and rhythm no murmurs rubs or gallops, no peripheral edema Patient Condition at Discharge: Good Plan - Discharge Summary Discharge Rx Participant: Yes New Discharge Prescriptions: Continue Levothyroxine Sodium [Levoxyl] 200 mcg PO DAILY@1200 metFORMIN HCL [Glucophage] 500 mg PO BID@1700,2100 Hydroxychloroquine Sulfate [Plaquenil] 200 mg PO BID@1200,2100 Ezetimibe [Zetia] 10 mg PO DAILY@1200 PARoxetine HCL [Paxil] 30 mg PO DAILY@1200 Whisperject 200mm/125mm/85.75mm 1 injection SQ MOWEFR Discharge Medication List Levothyroxine Sodium [Levoxyl] 200 mcg PO DAILY@1200 11/30/14 [History] metFORMIN HCL [Glucophage] 500 mg PO BID@1700,2100 11/10/17 [History] Ezetimibe [Zetia] 10 mg PO DAILY@1200 10/06/18 [History] Hydroxychloroquine Sulfate [Plaquenil] 200 mg PO BID@1200,2100 10/06/18 [History] PARoxetine HCL [Paxil] 30 mg PO DAILY@1200 10/06/18 [History] Whisperject 200mm/125mm/85.75mm 1 injection SQ MOWEFR 10/06/18 [History] Follow up Appointment(s)/Referral(s): [facility] [Provider Group] - 1-2 Days (Patient to get 2 week event monitor at [facility] day of discharge. ) Azra Zarate MD [Primary Care Provider] - 1-2 days (Office will call with appointment time and date) Deb Calderon MD [STAFF PHYSICIAN] - 10/13/18 1:15 pm Brien Sprague MD [STAFF PHYSICIAN] - 11/01/18 3:45 pm Patient Instructions/Handouts: Bradycardia (DC) Discharge Disposition: HOME SELF-CARE
== END 2018-10-07 14:58 | disposition home or self-care (01) | DRG 309 ==
LOC: EC 14:41 → 3SCARD 16:25
PROVIDERS: ADMIT Family Medicine; ATTEND Family Medicine
DX: R00.1 Bradycardia, unspecified (principal); Z68.41 Body mass index [BMI] 40.0-44.9, adult; D86.9 Sarcoidosis, unspecified; E03.9 Hypothyroidism, unspecified; E11.9 Type 2 diabetes mellitus without complications; E66.01 Morbid (severe) obesity due to excess calories; E78.5 Hyperlipidemia, unspecified; F32.9 Major depressive disorder, single episode, unspecified; F41.9 Anxiety disorder, unspecified; F90.9 Attention-deficit hyperactivity disorder, unspecified type; G35 Multiple sclerosis; I10 Essential (primary) hypertension; I25.2 Old myocardial infarction; Z79.84 Long term (current) use of oral hypoglycemic drugs; Z79.890 Hormone replacement therapy; Z79.899 Other long term (current) drug therapy; Z87.891 Personal history of nicotine dependence; Z88.8 Allergy status to other drugs, medicaments and biological substances; Z90.49 Acquired absence of other specified parts of digestive tract; Z82.61 Family history of arthritis; Z82.49 Family history of ischemic heart disease and other diseases of the circulatory system
CPT/HCPCS: 36415; 71046; 80053; 80061; 83735; 84439; 84443; 84484; 85025; 85610; 85730; 93005; 93270; 96361; 96365; 99285

== ENCOUNTER → 2018-10-19 | Outpatient (CLI) | payer OTHER ==
[2018-10-19 13:57] LABS: Basophils % (A) 0 %; Eosinophils # (A) 0.1 k/uL (0-0.7); Eosinophils % (A) 2 %; HCT 38.9 % (34.0-46.0); HGB 13.2 gm/dL (11.4-16.0); Lymphocytes # (A) 1.3 k/uL (1.0-4.8); Lymphocytes % (A) 22 %; MCH 28.8 pg (25.0-35.0); MCV 84.7 fL (80.0-100.0); Mean Platelet Volume 8.6; Monocytes # (A) 0.3 k/uL (0-1.0); Monocytes % (A) 6 %; Neutrophils # (A) 4.1 k/uL (1.3-7.7); Neutrophils % (A) 68 %; Platelet Count 202 k/uL (150-450); RBC 4.59 m/uL (3.80-5.40); RDW 14.1 % (11.5-15.5); WBC 6.1 k/uL (3.8-10.6)
== END | disposition home or self-care (01) ==
LOC: LABWHC1 13:20
PROVIDERS: ATTEND Psychiatry & Neurology Pain Medicine
DX: G35 Multiple sclerosis (principal); D86.9 Sarcoidosis, unspecified
CPT/HCPCS: 36415; 85025

== ENCOUNTER → 2018-11-03 | Outpatient (CLI) | payer OTHER | END | disposition home or self-care (01) | LOC: CPPFTMAIN 08:25 | PROVIDERS: ATTEND Internal Medicine Critical Care Medicine | DX: J45.909 Unspecified asthma, uncomplicated (principal) | CPT/HCPCS: 94060; 94726; 94729 ==

== ENCOUNTER → 2018-11-10 | Outpatient (CLI) | payer OTHER ==
[2018-11-10 16:54] LABS: African American GFR (CKD) >90 (>60 ml/min/1.73 sqM); Blood Urea Nitrogen 14 mg/dL (7-17)
--- NOTE | 2018-11-11 05:40 | CT ---
EXAMINATION TYPE: CT chest w con DATE OF EXAM: 11/10/2018 COMPARISON: 07/22/2017 HISTORY: 43-year-old female sarcoidosis TECHNIQUE: Contiguous axial scanning of the chest after the administration of 100 mL of Isovue 300. Coronal/sagittal reconstructions performed. CT DLP: 637.9mGycm. Automatic exposure control utilized for a dose reduction. FINDINGS: Heart normal size without pericardial effusion. Aorta normal caliber with conventional vessel branching anatomy. Redemonstrated mediastinal and bilateral hilar lymphadenopathy. This has fluctuated in size in the in terval with some nodes being larger and some nodes being smaller. Anterior aspect of the superior mediastinum measures 8 mm versus 9 mm, previously. Prevascular space measures 1.1 cm versus 7 mm, previously. AP window measures 1.4 cm versus 5 mm, previously. Right tracheobronchial angle measures 1.4 cm, unchanged. Left tracheobronchial angle measures 8 mm, unchanged. Subcarinal measures 1.3 cm versus 1.6 cm, previously, smaller. Right hilar soft tissue prominence is grossly similar measuring up to 1.4 cm. On the left, soft tissue density slightly increased measuring up to 1.8 cm versus 1.5 cm, previously. In the upper abdomen, gastrohepatic ligament lymph node is similar measuring up to 1 cm. Manfred hepatic lymph node is increased at 1.2 cm versus 8 mm, previously. Left retroperitoneal is larger at 1.3 cm versus 5 mm, previously. Subpleural nodularity is redemonstrated. 5 mm posterior right upper lobe axial image 16 versus 4 mm, previously. 5 mm anterior right midlung axial image 31 versus 2 mm, previously. 3 mm anterior right lower lung axial image 36 appears new. 5 mm peripheral right base axial image 38 appears new. 7 mm peripheral right middle lobe subpleural pulmonary nodule axial image 45 is new. An 8 x 4 mm peribronchovascular pulmonary nodule at the right suprahilar level, axial image 18 is new . 4 mm peripheral left basilar pulmonary nodule axial image 45 is stable. Left upper lobe calcified granuloma is stable. Strandy atelectasis in the lingula. Remainder of the visualized upper abdomen shows borderline size spleen at 13.6 cm. Bones: Moderate endplate spondylosis anteriorly in the lower thoracic spine. IMPRESSION: 1. Fluctuating mediastinal, hilar, and upper abdominal lymphadenopathy. Some lymph nodes are slightly smaller or stable. However, many lymph nodes measure larger (for example, AP window lymph node measu ring 1.4 cm versus 5 mm, previously. Upper left retroperitoneal at 1.3 cm versus 5 mm, previously). 2. In addition, numerous subpleural/perilymphatic nodularity is present in the lungs. A few pulmonary nodules measuring up to 7 mm are new while a couple previously seen nodules are a couple of millimet ers larger. 3. Additional new 8 x 4 mm peribronchovascular pulmonary nodule right suprahilar level. 4. Overall changes suggest slight progression/recurrence of sarcoidosis.
== END | disposition home or self-care (01) ==
LOC: RADCTMAIN 16:18
PROVIDERS: ATTEND Internal Medicine Critical Care Medicine
DX: R91.8 Other nonspecific abnormal finding of lung field (principal); D86.9 Sarcoidosis, unspecified
CPT/HCPCS: 82565; 84520; 71260; 36415; Q9967

== ENCOUNTER → 2018-11-16 | Outpatient (CLI) | payer OTHER ==
[2018-11-16 13:25] LABS: Basophils % (A) 1 %; Eosinophils # (A) 0.2 k/uL (0-0.7); Eosinophils % (A) 3 %; HGB 14.3 gm/dL (11.4-16.0); Lymphocytes # (A) 1.6 k/uL (1.0-4.8); Lymphocytes % (A) 26 %; MCH 28.6 pg (25.0-35.0); MCHC 32.5 g/dL (31.0-37.0); Mean Platelet Volume 8.4; Monocytes # (A) 0.4 k/uL (0-1.0); Monocytes % (A) 6 %; Neutrophils # (A) 3.9 k/uL (1.3-7.7); Neutrophils % (A) 62 %; Platelet Count 205 k/uL (150-450); RDW 13.5 % (11.5-15.5); WBC 6.3 k/uL (3.8-10.6)
== END | disposition home or self-care (01) ==
LOC: LABWHC1 12:04
PROVIDERS: ATTEND Psychiatry & Neurology Pain Medicine
DX: G35 Multiple sclerosis (principal); D86.9 Sarcoidosis, unspecified
CPT/HCPCS: 36415; 85025

== ENCOUNTER 2018-12-09 17:25 | Emergency (ER) | payer OTHER ==
[2018-12-09 17:30] VITALS: RESP 18
--- NOTE | 2018-12-09 17:44 | ED ---
General Adult HPI - General Chief complaint: Chest Pain Stated complaint: chest pain, abnormal EKG Time Seen by Provider: 12/09/18 17:30 Source: patient, RN notes reviewed Mode of arrival: ambulatory Limitations: no limitations - History of Present Illness Initial comments: This is a 43-year-old female who presents emergency Department complaining of we akness. Patient states she's been feeling this way for a couple weeks but for the last week it seems to have gotten worse. Patient states she has a point with the junior data analyst tomorrow but she went to her primary medical care doctor and he noted that her EKG changed and sent to the emergency department. Patient denies any chest pain or pressure. Patient states she does seem to get out of breath quite quickly especially over the last 2 weeks. Patient denies a fever chills or cough. Patient denies any lightheadedness or dizziness. Patient denies any numbness or weakness. Patient denies abdominal pain patient denies nausea vomiting or diarrhea. Patient denies any leg swelling or calf t enderness. - Related Data Home Medications Medication Instructions Recorded Confirmed Levothyroxine Sodium [Levoxyl] 200 mcg PO DAILY 11/30/14 12/09/18 metFORMIN HCL [Glucophage] 500 mg PO BID@1700,2100 11/10/17 12/09/18 Ezetimibe [Zetia] 10 mg PO HS 10/06/18 12/09/18 PARoxetine HCL [Paxil] 30 mg PO DAILY@1200 10/06/18 12/09/18 Dextran 70/Hypromellose [Genteal 1 drop BOTH EYES QID 12/09/18 12/09/18 Tears 0.1%-0.3% Drop] Folic Acid 1 mg PO DAILY 12/09/18 12/09/18 Glatiramer Acetate [Copaxone] 40 mg SQ MOWEFR 12/09/18 12/09/18 Methotrexate Sodium [Methotrexate] 12.5 mg PO SA 12/09/18 12/09/18 amLODIPine [Norvasc] 5 mg PO DAILY 12/09/18 12/09/18 Allergies Allergy/AdvReac Type Severity Reaction Status Date / Time Gvgzkei-Zsd-Aim Reductase AdvReac FACIAL Verified 12/09/18 18:09 Inhibitor NUMBNESS SEAFOOD Allergy Rash/Hives Uncoded 12/09/18 18:09 Review of Systems ROS Statement: Those systems with pertinent positive or pertinent negative responses have been documented in the HPI. ROS Other: All systems not noted in ROS Statement are negative. Past Medical History Past Medical History: Diabetes Mellitus, Hyperlipidemia, Hypertension, Thyroid Disorder Additional Past Medical History / Comment(s): "dry eyes", "in past had steroid induced gluacoma-resolved", add/adhd, anxiety, depression,"sarcoidosis", eczema, bells palsy affected rt eye,"irreg heart beat"concussion age 12 stated has some learning disablity-problems with spelling.pt stated "was told in past that an ekg had evidence of prior heart attack". pt stated "had stress test approx 6 weeks ago -they never called to tell me if there was a problem so it must have been ok" History of Any Multi-Drug Resistant Organisms: None Reported Past Surgical History: Cholecystectomy Past Anesthesia/Blood Transfusion Reactions: Motion Sickness Additional Past Anesthesia/Blood Transfusion Reaction / Comment(s): clausterphoba Past Psychological History: ADD/ADHD, Anxiety Smoking Status: Never smoker Past Alcohol Use History: None Reported Past Drug Use History: None Reported - Past Family History Mother Family Medical History: AFIB, Osteoarthritis (OA) Father Family Medical History: Osteoarthritis (OA), Thyroid Disorder General Exam - General Exam Comments Initial Comments: GENERAL: Patient is well-developed and well-nourished. Patient is nontoxic and well- hydrated and is in mild distress. ENT: Neck is soft and supple. No significant lymphadenopathy is noted. Oropharynx is clear. Moist mucous membranes. Neck has full range of motion without eliciting any pain. EYES: The sclera were anicteric and conjunctiva were pink and moist. Extraocular movements were intact and pupils were equal round and reactive to light. Eyelids were unremarkable. PULMONARY: Unlabored respirations. Good breath sounds bilaterally. No audible rales rhonchi or wheezing was noted. CARDIOVASCULAR: There is a regular rate and rhythm without any murmurs gallops or rubs. ABDOMEN: Soft and nontender with normal bowel sounds. SKIN: Skin is clear with no lesions or rashes and otherwise unremarkable. NEUROLOGIC: Patient is alert and oriented x3. Cranial nerves II through XII are grossly intact. Motor and sensory are also intact. Normal speech, volume and content. Symmetrical smile. MUSCULOSKELETAL: Normal extremities with adequate strength and full range of motion. LYMPHATICS: No significant lymphadenopathy is noted PSYCHIATRIC: Normal psychiatric evaluation. Limitations: no limitations Course Vital Signs 12/09/18 17:28 Temperature 98.1 F Pulse Rate 50 L Respiratory 18 Rate Blood Pressure 190/83 O2 Sat by Pulse 99 Oximetry Medical Decision Making - Medical Decision Making EKG shows sinus bradycardia with frequent PVCs in a bigeminy pattern and the ventricular rate is 59. [place] interval is 160 QRS is 88 QT interval is 482 QTC is 477. Patient's EKG shows no ST segment elevation or depression or T wave abnormalities are noted. Patient's chest x-ray shows no acute abnormality. Patient did not want to stay in emergency department she has a cardiology appointment tomorrow. - Lab Data Result diagrams: 12/09/18 17:57 12/09/18 17:57 Lab Results 12/09/18 12/09/18 12/09/18 Range/Units 17:57 17:57 17:57 WBC 7.5 (3.8-10.6) k/uL RBC 4.80 (3.80-5.40) m/uL Hgb 14.1 (11.4-16.0) gm/dL Hct 41.2 (34.0-46.0) % MCV 85.9 (80.0-100.0) fL MCH 29.5 (25.0-35.0) pg MCHC 34.3 (31.0-37.0) g/dL RDW 13.8 (11.5-15.5) % Plt Count 199 (150-450) k/uL Neutrophils % 64 % Lymphocytes % 22 % Monocytes % 6 % Eosinophils % 4 % Basophils % 1 % Neutrophils # 4.8 (1.3-7.7) k/uL Lymphocytes # 1.7 (1.0-4.8) k/uL Monocytes # 0.5 (0-1.0) k/uL Eosinophils # 0.3 (0-0.7) k/uL Basophils # 0.1 (0-0.2) k/uL PT 9.8 (9.0-12.0) sec INR 0.9 (<1.2) APTT 26.0 (22.0-30.0) sec Sodium 141 (137-145) mmol/L Potassium 4.0 (3.5-5.1) mmol/L Chloride 107 (98-107) mmol/L Carbon Dioxide 25 (22-30) mmol/L Anion Gap 9 mmol/L BUN 13 (7-17) mg/dL Creatinine 0.63 (0.52-1.04) mg/dL Est GFR (CKD-EPI)AfAm >90 (>60 ml/min/1.73 sqM) Est GFR (CKD-EPI)NonAf >90 (>60 ml/min/1.73 sqM) Glucose 101 H (74-99) mg/dL Calcium 9.3 (8.4-10.2) mg/dL Magnesium 1.8 (1.6-2.3) mg/dL Total Bilirubin 0.4 (0.2-1.3) mg/dL AST 20 (14-36) U/L ALT 19 (9-52) U/L Alkaline Phosphatase 86 (38-126) U/L Troponin I (0.000-0.034) ng/mL Total Protein 7.7 (6.3-8.2) g/dL Albumin 4.2 (3.5-5.0) g/dL 12/09/18 Range/Units 17:57 WBC (3.8-10.6) k/uL RBC (3.80-5.40) m/uL Hgb (11.4-16.0) gm/dL Hct (34.0-46.0) % MCV (80.0-100.0) fL MCH (25.0-35.0) pg MCHC (31.0-37.0) g/dL RDW (11.5-15.5) % Plt Count (150-450) k/uL Neutrophils % % Lymphocytes % % Monocytes % % Eosinophils % % Basophils % % Neutrophils # (1.3-7.7) k/uL Lymphocytes # (1.0-4.8) k/uL Monocytes # (0-1.0) k/uL Eosinophils # (0-0.7) k/uL Basophils # (0-0.2) k/uL PT (9.0-12.0) sec INR (<1.2) APTT (22.0-30.0) sec Sodium (137-145) mmol/L Potassium (3.5-5.1) mmol/L Chloride (98-107) mmol/L Carbon Dioxide (22-30) mmol/L Anion Gap mmol/L BUN (7-17) mg/dL Creatinine (0.52-1.04) mg/dL Est GFR (CKD-EPI)AfAm (>60 ml/min/1.73 sqM) Est GFR (CKD-EPI)NonAf (>60 ml/min/1.73 sqM) Glucose (74-99) mg/dL Calcium (8.4-10.2) mg/dL Magnesium (1.6-2.3) mg/dL Total Bilirubin (0.2-1.3) mg/dL AST (14-36) U/L ALT (9-52) U/L Alkaline Phosphatase (38-126) U/L Troponin I <0.012 (0.000-0.034) ng/mL Total Protein (6.3-8.2) g/dL Albumin (3.5-5.0) g/dL Disposition Clinical Impression: Bradycardia, Ventricular bigeminy Disposition: HOME SELF-CARE Condition: Good Additional Instructions: Patient will follow-up with her junior data analyst tomorrow at a previously scheduled appointment. Is patient prescribed a controlled substance at d/c from ED?: No Referrals: Costa Falcon [Primary Care Provider] - 1-2 days Time of Disposition: 19:16
[2018-12-09 18:11] LABS: Basophils # (A) 0.1 k/uL (0-0.2); Basophils % (A) 1 %; Eosinophils # (A) 0.3 k/uL (0-0.7); Eosinophils % (A) 4 %; HCT 41.2 % (34.0-46.0); HGB 14.1 gm/dL (11.4-16.0); Lymphocytes # (A) 1.7 k/uL (1.0-4.8); Lymphocytes % (A) 22 %; MCH 29.5 pg (25.0-35.0); MCHC 34.3 g/dL (31.0-37.0); MCV 85.9 fL (80.0-100.0); Mean Platelet Volume 7.7; Monocytes # (A) 0.5 k/uL (0-1.0); Monocytes % (A) 6 %; Neutrophils # (A) 4.8 k/uL (1.3-7.7); Neutrophils % (A) 64 %; Platelet Count 199 k/uL (150-450); RDW 13.8 % (11.5-15.5); WBC 7.5 k/uL (3.8-10.6)
[2018-12-09 18:23] LABS: INR 0.9 (<1.2); Prothrombin Time 9.8 sec (9.0-12.0)
[2018-12-09 18:35] LABS: ALT 19 U/L (9-52); AST 20 U/L (14-36); African American GFR (CKD) >90 (>60 ml/min/1.73 sqM); Albumin 4.2 g/dL (3.5-5.0); Alkaline Phosphatase 86 U/L (38-126); Anion Gap 9 mmol/L; Blood Urea Nitrogen 13 mg/dL (7-17); Calcium 9.3 mg/dL (8.4-10.2); Carbon Dioxide 25 mmol/L (22-30); Chloride 107 mmol/L (98-107); Glucose 101 mg/dL (74-99); Magnesium 1.8 mg/dL (1.6-2.3); Non-African American GFR(CKD) >90 (>60 ml/min/1.73 sqM); Sodium 141 mmol/L (137-145); Total Bilirubin 0.4 mg/dL (0.2-1.3); Total Protein 7.7 g/dL (6.3-8.2)
--- NOTE | 2018-12-09 18:35 | XR ---
EXAMINATION TYPE: XR chest 2V DATE OF EXAM: 12/09/2018 COMPARISON: 10/06/2018 HISTORY: Hypotension TECHNIQUE: Frontal and lateral views of the chest are obtained. FINDINGS: Heart and mediastinum are normal. Lungs are clear. Costophrenic angles are clear. There is slight coarsening of interstitial markings. There is no pleural effusion. IMPRESSION: Increased lung markings without consolidation. Normal heart. This could relate to some b ronchitis. No obvious heart failure. Lung markings unchanged compared to old exam.
[2018-12-09 19:27] VITALS: BP 160/66; PULSE 56; TEMP 97.8
== END 2018-12-09 20:05 | disposition home or self-care (01) ==
LOC: EC 17:25
DX: I49.9 Cardiac arrhythmia, unspecified (principal); E11.9 Type 2 diabetes mellitus without complications; E78.5 Hyperlipidemia, unspecified; I10 Essential (primary) hypertension; E07.9 Disorder of thyroid, unspecified; F41.9 Anxiety disorder, unspecified; Z79.890 Hormone replacement therapy; Z79.84 Long term (current) use of oral hypoglycemic drugs; Z79.899 Other long term (current) drug therapy; Z88.8 Allergy status to other drugs, medicaments and biological substances; Z91.013 Allergy to seafood
CPT/HCPCS: 36415; 71046; 80053; 83735; 84484; 85025; 85610; 85730; 93005; 99285

== ENCOUNTER → 2019-02-11 | Outpatient (CLI) | payer OTHER ==
[2019-02-11 14:58] LABS: HCT 42.1 % (34.0-46.0); HGB 14.4 gm/dL (11.4-16.0); MCH 29.2 pg (25.0-35.0); MCHC 34.1 g/dL (31.0-37.0); MCV 85.7 fL (80.0-100.0); Mean Platelet Volume 8.8; Platelet Count 219 k/uL (150-450); RBC 4.91 m/uL (3.80-5.40); RDW 14.3 % (11.5-15.5); WBC 6.7 k/uL (3.8-10.6)
[2019-02-11 15:05] LABS: African American GFR (CKD) >90 (>60 ml/min/1.73 sqM); Anion Gap 8 mmol/L; Blood Urea Nitrogen 17 mg/dL (7-17); Carbon Dioxide 28 mmol/L (22-30); Chloride 104 mmol/L (98-107); Glucose 101 mg/dL (74-99); Non-African American GFR(CKD) >90 (>60 ml/min/1.73 sqM); Potassium 4.3 mmol/L (3.5-5.1); Sodium 140 mmol/L (137-145)
== END | disposition home or self-care (01) ==
LOC: LABPAT 14:16
PROVIDERS: ATTEND Internal Medicine Clinical Cardiac Electrophysiology
DX: Z01.812 Encounter for preprocedural laboratory examination (principal); I47.2 Ventricular tachycardia; I49.5 Sick sinus syndrome
CPT/HCPCS: 80051; 82565; 82947; 84520; 85027

== ENCOUNTER 2019-02-15 06:59 | Day surgery (SDC) | payer OTHER ==
[2019-02-11 12:25] VITALS: BMI 43.5
[2019-02-15] MEDS ORDERED: ceFAZolin 1,000 MG in SODIUM CHLORIDE 0.9% IRRIGATIO 250 ML IRRIGATION ONE (07:00)
[2019-02-15 07:17] LABS: Glucose,Whole Blood 115 mg/dL (75-99)
[2019-02-15] MEDS: SODIUM CHLORIDE 0.9% 1,000 ML IV SCH (07:19)
[2019-02-15] MEDS ORDERED: PROPOFOL 10 MG/ML 20 ML VIAL IV ONE (07:51)
[2019-02-15] MEDS ORDERED: fentaNYL (PF) 50 MCG/ML 2 ML AMP ONE (07:51)
[2019-02-15] MEDS ORDERED: MIDAZOLAM 2 MG/2 ML VIAL ONE (07:51)
[2019-02-15] MEDS ORDERED: diphenhydrAMINE 50 MG/ML 1 ML VIAL ONE (07:51)
[2019-02-15] MEDS ORDERED: SODIUM CHLORIDE 0.9% 250 ML IV ONE (08:00)
[2019-02-15] MEDS ORDERED: IOPAMIDOL-370 50ML BTL INJ ONE (08:12)
[2019-02-15] MEDS ORDERED: LIDOCAINE 1% INJ 10MG/ML (20 ML MDV) ONE ×2 (08:34→09:25)
[2019-02-15] MEDS ORDERED: LIDOCAINE 1% INJ 10MG/ML (20 ML MDV) SQ ONE ×2 (08:59→09:20)
[2019-02-15] MEDS ORDERED: ACETAMINOPHEN IV (For NPO) 1,000 MG in EMPTY BAG 1 BAG IVPB ONE (10:20)
[2019-02-15] MEDS ORDERED: ACETAMINOPHEN TAB 325 MG TAB PO PRN (10:20)
--- NOTE | 2019-02-15 10:39 | P.PRLE ---
RE: Bernice Tran Dear Dr. Falcon Mrs. Tran underwent a dual-chamber ICD implantation for management of sick sinus syndrome and risk of sudden cardiac on account of cardiac sarco idosis. She has evidence of delayed enhancement on a cardiac MRI did In addition we are starting her on ELIQUIS 5 mg twice daily because of the possibility of a small LV clot that was suggested on the cardiac MRI report She'll continue to follow with you and Dr. Ko as before Thank you for entrusting me with the care of the patient Warm regards Sincerely Erasto Hinojosa
--- NOTE | 2019-02-15 10:46 | P.PCN ---
Preoperative Diagnosis: Left upper extremity venogram 50 mL IV dye injection of the left upper extremity. Patent left cephalic axillary and subclavian and innominate venous systems Plan Proceed with dual-chamber ICD implantation for management of cardiac sarcoidosis and Sick Sinus Syndrome
--- NOTE | 2019-02-15 11:27 | CE ---
CARDIAC ELECTROPHYSIOLOGY REPORT This is a 43-year-old female with known cardiac sarcoidosis with sick sinus syndrome and sinus pauses. She has an abnormal cardiac MRI with evidence of delayed enhancement and cardiac as well as systemic sarcoidosis. A dual-chamber ICD was recommended for primary prevention of sudden cardiac . Patient was brought to the EP lab in a fasting state. Written informed consent was obtained prior to the procedure. The left shoulder area was prepped and draped as per protocol and 1% lidocaine was used for local anesthesia. IV antibiotics were administered. A 5 cm incision was made parallel to the deltopectoral groove, about 1.5 cm medial to it. The incision was carried down to the level of the pectoralis muscle. A subfascial pocket was made. Hemostasis was assured. The left axillary vein was accessed at 2 separate points and via appropriately-sized introducer sheaths two leads were positioned the right heart. The RV lead was positioned in the mid RV septum. This is a [employer] model number [id number], 58 cm in length and serial number [id number]. The R-waves were 15.8 mV, pacing impedance 678 ohms, pacing threshold 0.5 V at 0.5 milliseconds. The atrial lead was a [employer] model #2088TC, 52 cm in length and serial number [id number]. P waves 1.9 mV, pacing impedance 430 ohms, pacing threshold 0.5 V at 0.5 milliseconds. Ten volt test was negative. Both leads were secured to the underlying pectoralis fascia using 2 nonabsorbable sutures. Pocket was irrigated with antibiotic solution. Leads were connected to the generator ([employer] model [id number], 36Q, serial #[id number]) Leads and the generator were then placed in subfascial pocket. The wound was closed in 3 layers and dressed per protocol. RESULT: Successful dual-chamber ICD implantation for management of sick sinus syndrome and underlying cardiac sarcoidosis with an abnormal cardiac MRI and risk of sudden cardiac in the future. The device was programmed to DDD mode with VIP to minimize RV pacing. The device was programmed according to the MADIT-RIT parameters to minimize inappropriate ICD shocks and appropriate antitachycardia pacing, cardioversion and defibrillation programmed. RESULT: Successful dual-chamber ICD implant. PLAN: Continue all cardiac medications. Add Eliquis 5 mg twice daily for 6 months. The patient has a possible small LV clot according to the MRI and we will anticoagulate her for 6 months. We did have a discussion regarding this in the office. This may be discontinued after 6 months. She will continue to follow with Dr. Sprague as before. VALERIANO / GARTH: [id number] /
--- NOTE | 2019-02-15 11:30 | LTR ---
February 15, 2019 Re: Bernice Tran Dear Brien: Bernice Tran underwent successful dual-chamber ICD implantation for management of future sudden cardiac risk because she has underlying cardiac sarcoidosis. She also has sick sinus syndrome with sinus pauses during the daytime and a dual-chamber ICD was implanted. The cardiac MRI also suggests the possibility of a very small LV clot and therefore I have started her on Eliquis 5 mg twice daily, which should be continued for a period of 6 months and then discontinued. She will follow up with you in the office within a week. Sincerely, MD VALERIANO Henry / OSBALDON: [phone] /
[2019-02-15 11:56] LABS: Glucose,Whole Blood 103 mg/dL (75-99)
[2019-02-15] MEDS ORDERED: LEVOTHYROXINE 100 MCG TAB PO SCH (12:00)
[2019-02-15] MEDS: HYDROcodone/APAP 5-325MG 1 EACH TAB PO PRN ×3 (12:24→21:45)
[2019-02-15] MEDS: EZETIMIBE 10 MG TAB PO SCH (12:25)
[2019-02-15] MEDS: PARoxetine 20 MG TAB PO SCH (12:26)
[2019-02-15] MEDS: FOLIC ACID 1 MG TAB PO SCH (12:26)
[2019-02-15] MEDS ORDERED: ceFAZolin 3 GM in SODIUM CHLORIDE 0.9% 100 ML IVPB SCH (13:00)
[2019-02-15 16:38] LABS: Glucose,Whole Blood 137 mg/dL (75-99)
[2019-02-15 20:41] LABS: Glucose,Whole Blood 117 mg/dL (75-99)
[2019-02-16 00:13] VITALS: RESP 18
[2019-02-16] MEDS: SODIUM CHLORIDE 0.9% 1,000 ML IV SCH (02:32)
[2019-02-16] MEDS: HYDROcodone/APAP 5-325MG 1 EACH TAB PO PRN (03:58)
[2019-02-16 06:44] LABS: Glucose,Whole Blood 112 mg/dL (75-99)
[2019-02-16] MEDS ORDERED: CARVEDILOL 3.125 MG TAB PO SCH (07:45)
--- NOTE | 2019-02-16 08:04 | P.DS ---
Providers Attending physician: Erasto Hinojosa Primary care physician: [facility] Course: Patient is doing well. She has no chest discomfort but she states that her ICD site is sore. There is no swelling at all. There is no hematoma. There is no oozing of blood. There is no blood staining at all She is resting comfortably in bed no dizziness lightheadedness. She does feel palpitations and has PVCs On examination her blood pressure is elevated consistently Heart sounds are normal no murmurs no gallops no rub Heart rates are in the 50s and 60s Abdomen soft nontender Breath sounds are clear Impression Cardiac sarcoidosis Sick sinus syndrome with sinus pauses in the day Frequent PVCs Abnormal cardiac MRI with evidence of delayed enhancement and the possibility of an LV thrombus Hypertension Suggest Add carvedilol 3.125 mg twice daily Continue all other medications Anticoagulation with ELIQUIS for 6 months and then stop Follow-up with Dr. Ko in the device clinic within a week Patient Condition at Discharge: Stable Plan - Discharge Summary Discharge Rx Participant: No New Discharge Prescriptions: New Apixaban [Eliquis] 5 mg PO BID #180 tab No Action RX: Levothyroxine Sodium [Levoxyl] 200 mcg PO DAILY@1200 RX: metFORMIN HCL [Glucophage] 500 mg PO BID@1200,2100 RX: Ezetimibe [Zetia] 10 mg PO DAILY@1200 RX: PARoxetine HCL [Paxil] 20 mg PO DAILY@1200 Methotrexate Sodium [Methotrexate] 12.5 mg PO SA Glatiramer Acetate [Copaxone] 40 mg SQ MOWEFR RX: Folic Acid 1 mg PO MOTUWETHFR Dextran 70/Hypromellose [Genteal Tears 0.1%-0.3% Drop] 1 drop BOTH EYES QID PRN PRN Reason: Dry Eye(S) Multivit with Calcium,Iron,Min [Women's Multivitamin] 1 each PO Q48H Cyclobenzaprine [Flexeril] 10 mg PO TID PRN PRN Reason: back pain Eucrisa 2% 1 applic TOPICAL DAILY Discharge Medication List RX: Levothyroxine Sodium [Levoxyl] 200 mcg PO DAILY@1200 11/30/14 [History] RX: metFORMIN HCL [Glucophage] 500 mg PO BID@1200,2100 11/10/17 [History] RX: Ezetimibe [Zetia] 10 mg PO DAILY@1200 10/06/18 [History] RX: PARoxetine HCL [Paxil] 20 mg PO DAILY@1200 10/06/18 [History] Dextran 70/Hypromellose [Genteal Tears 0.1%-0.3% Drop] 1 drop BOTH EYES QID PRN 12/09/18 [History] Glatiramer Acetate [Copaxone] 40 mg SQ MOWEFR 12/09/18 [History] Methotrexate Sodium [Methotrexate] 12.5 mg PO SA 12/09/18 [History] RX: Folic Acid 1 mg PO MOTUWETHFR 12/09/18 [History] Cyclobenzaprine [Flexeril] 10 mg PO TID PRN 02/11/19 [History] Eucrisa 2% 1 applic TOPICAL DAILY 02/11/19 [History] Multivit with Calcium,Iron,Min [Women's Multivitamin] 1 each PO Q48H 02/11/19 [History] Apixaban [Eliquis] 5 mg PO BID #180 tab 02/15/19 [Rx] Follow up Appointment(s)/Referral(s): Brien Sprague MD [STAFF PHYSICIAN] - 1 Week (Follow-up in the device clinic in 5 days Follow-up with Dr. Sprague in 3 months or as previously scheduled) Activity/Diet/Wound Care/Special Instructions: PATIENT EDUCATION MATERIAL Instructions following a heart rhythm device implant. 1. Keep dressing DRY for 5 DAYS. You may cover the area with Saran or Cling Wrap, prior to a shower. 2. The dressing will be removed in the Device Clinic at [facility]. Absorbable sutures were used to close the wound. 3. Avoid raising the left arm above the shoulder level. 4 week restriction 4. Avoid arm movements, like backscratching, rubbing the head, or pulling on a cord. 4 weeks restriction 5. Gentle range of motion movements of the shoulder, closest to the incision should be performed to avoid a frozen shoulder. (Pendulum exercises of the shoulder) 6. The opposite arm may be used freely. 7. Avoid driving for 7 days. 8. Avoid activities such as golfing, swimming, weed whacking, lifting more than 10 pounds weight, bowling, gymnastics and weight training/lifting. (6 weeks restriction) 9. Activities such as wood chopping with an axe, pull-ups in the gymnasium, power lifting, arc-welding, being close to home induction cooktops will always be a problem. 10. Arm sling is only a reminder not to raise the arm above the head. You do not need to keep the arm completely immobilized. Your free to move the arm and use it and for normal activities. In case of any problems, please call [facility], [place], @ [phone], Attention: Device Clinic Device clinic follow-up in 5 days Follow-up with primary boat detailer in 2-3 months Start eliquis 5 mg twice a day, Continue all other medications as previously prescribed
--- NOTE | 2019-02-16 08:15 | XR ---
EXAMINATION TYPE: XR chest 2V DATE OF EXAM: 02/16/2019 COMPARISON: 12/09/2018 HISTORY: 43-year-old female with placement check TECHNIQUE: PA and lateral views FINDINGS: Left anterior chest wall AICD generator with right atrial and right ventricular leads. Heart remains borderline enlarged. Diffuse interstitial prominence is unchanged. No consolidation, pneumothorax, or pleural effusion. IMPRESSION: 1. Left anterior chest wall 2-lead AICD generator with right atrial and right ventricular leads. 2. Similar borderline heart size and mild diffuse interstitial prominence which may be chronic, corre late to exclude mild pulmonary vascular congestion.
[2019-02-16] MEDS: EZETIMIBE 10 MG TAB PO SCH (08:29)
[2019-02-16] MEDS: PARoxetine 20 MG TAB PO SCH (08:29)
[2019-02-16] MEDS: FOLIC ACID 1 MG TAB PO SCH (08:32)
[2019-02-16] MEDS ORDERED: Glatiramer Acetate [Copaxone] SQ SCH (09:00)
[2019-02-16] MEDS ORDERED: APIXABAN 5 MG TAB PO SCH (09:00)
[2019-02-16 11:25] VITALS: BP 183/84; PULSE 51; TEMP 97.6
[2019-02-17] MEDS ORDERED: metFORMIN 500 MG TAB PO SCH (12:00)
== END 2019-02-16 12:00 | disposition home or self-care (01) ==
LOC: CATHEP 06:59 → 1SOBS 10:10 → CATHEP 02-16 12:00
PROVIDERS: ATTEND Internal Medicine Clinical Cardiac Electrophysiology
DX: I49.5 Sick sinus syndrome (principal); D86.89 Sarcoidosis of other sites; I49.3 Ventricular premature depolarization; G47.33 Obstructive sleep apnea (adult) (pediatric); I10 Essential (primary) hypertension; E78.5 Hyperlipidemia, unspecified; G35 Multiple sclerosis; E11.9 Type 2 diabetes mellitus without complications; Z79.01 Long term (current) use of anticoagulants; Z79.84 Long term (current) use of oral hypoglycemic drugs; Z79.82 Long term (current) use of aspirin; Z79.890 Hormone replacement therapy; Z79.899 Other long term (current) drug therapy; Z88.8 Allergy status to other drugs, medicaments and biological substances
CPT/HCPCS: 33249; 81025; 71046; C1769 ×4; C1892 ×2; C1898; C1721; C1777; J0690 ×2; J2001; Q9967

== ENCOUNTER → 2019-03-07 | Outpatient (CLI) | payer OTHER ==
[2019-03-07 12:28] LABS: African American GFR (CKD) >90 (>60 ml/min/1.73 sqM); Blood Urea Nitrogen 10 mg/dL (7-17); Non-African American GFR(CKD) >90 (>60 ml/min/1.73 sqM)
--- NOTE | 2019-03-07 13:25 | CT ---
EXAMINATION TYPE: CT chest w con DATE OF EXAM: 03/07/2019 COMPARISON: Chest CT November 10, [address] July 22, 2017 HISTORY: History of sarcoidosis and MS. Recent pacemaker. Lymph node adenopathy. CT DLP: 663.5 mGycm. Automated Exposure Control for Dose Reduction was Utilized. TECHNIQUE: CT scan of the thorax is performed following with IV Contrast, patient injected with 100 mL of Isovue M300. FINDINGS: LUNGS: Some respiratory motion artifact diaphragm makes evaluation suboptimal particularly for subcen timeter nodules. There is subpleural 5 mm anteriorly right midlung nodule redemonstrated axial image 31. Slightly larger in size coronal image 39 versus last 2 CTs. No new nodules or masses clearly see n. No pleural effusion or pneumothorax noted. Stable 4 to 5 mm peripheral right lower lobe nodule consuelo ge 41. Micronodules left lung base laterally axial image 46 are less prominent. Persistent lateral le ft basilar linear scarring with slight nodularity near image 43 MEDIASTINUM: Persistent cardiomegaly with dual lead pacemaker. Persistent enlarged thoracic and amauri ateral hilar lymph nodes not significantly changed from prior study. No pericardial effusion is seen. OTHER: Multilevel spurring in the mid to lower thoracic spine. IMPRESSION: Suboptimal study with respiratory motion artifact degradation. Single 5 mm nodule right m idlung is slightly larger and more prominent from last [address] in 6-12 months time is advise julia
== END ==
LOC: RADCTMAIN 11:40
PROVIDERS: ATTEND Thoracic Surgery (Cardiothoracic Vascular Surgery)
DX: R22.2 Localized swelling, mass and lump, trunk (principal)
CPT/HCPCS: 82565; 84520; 71260; 36415; Q9967

== ENCOUNTER 2019-06-23 10:24 | Observation (INO) | payer OTHER ==
[2019-06-23 11:10] LABS: Basophils % (A) 0 %; Eosinophils # (A) 0.2 k/uL (0-0.7); Eosinophils % (A) 2 %; HCT 43.5 % (34.0-46.0); HGB 14.3 gm/dL (11.4-16.0); Lymphocytes # (A) 1.5 k/uL (1.0-4.8); Lymphocytes % (A) 17 %; MCH 28.8 pg (25.0-35.0); MCHC 32.9 g/dL (31.0-37.0); MCV 87.7 fL (80.0-100.0); Monocytes # (A) 0.4 k/uL (0-1.0); Monocytes % (A) 5 %; Neutrophils # (A) 6.5 k/uL (1.3-7.7); Neutrophils % (A) 74 %; Platelet Count 213 k/uL (150-450); RBC 4.96 m/uL (3.80-5.40); RDW 13.5 % (11.5-15.5); WBC 8.9 k/uL (3.8-10.6)
[2019-06-23] MEDS ORDERED: MORPHINE SULFATE 4 MG/ML SYRINGE IVP STA ×2 (11:11→13:39)
[2019-06-23] MEDS ORDERED: ONDANSETRON 4 MG/2 ML VIAL IVP STA (11:11)
[2019-06-23] MEDS ORDERED: KETOROLAC 30 MG/ML 1 ML VIAL IVP STA (11:11)
[2019-06-23 11:15] LABS: ALT 15 U/L (4-34); AST 23 U/L (14-36); African American GFR (CKD) >90 (>60 ml/min/1.73 sqM); Albumin 4.2 g/dL (3.5-5.0); Alkaline Phosphatase 86 U/L (38-126); Anion Gap 7 mmol/L; Blood Urea Nitrogen 13 mg/dL (7-17); Calcium 9.2 mg/dL (8.4-10.2); Carbon Dioxide 27 mmol/L (22-30); Chloride 101 mmol/L (98-107); Glucose 179 mg/dL (74-99); Non-African American GFR(CKD) >90 (>60 ml/min/1.73 sqM); Potassium 4.2 mmol/L (3.5-5.1); Sodium 135 mmol/L (137-145); Total Bilirubin 0.5 mg/dL (0.2-1.3); Total Protein 7.6 g/dL (6.3-8.2)
[2019-06-23 11:49] LABS: Appearance,Urine Clear (Clear); Bacteria,Urine Rare /hpf; Bilirubin,Urine Negative (Negative); Blood,Urine Moderate (Negative); Color,Urine Light Yellow; Glucose,Urine (UA) Negative (Negative); Ketones,Urine Negative (Negative); Leukocyte Esterase,Urine Small (Negative); Mucus,Urine Rare /hpf; Nitrite,Urine Negative (Negative); PH, Urine 5.5 (5.0-8.0); Protein,Urine Negative (Negative); RBC,Urine 25 /hpf (0-5); Specific Gravity,Urine 1.017 (1.001-1.035); Squamous Epithelial Cell,Urine 1 /hpf (0-4); Urobilinogen,Urine <2.0 mg/dL (<2.0); WBC,Urine 3 /hpf (0-5)
--- NOTE | 2019-06-23 12:08 | ED ---
Abdominal Pain HPI - General Chief Complaint: Abdominal Pain Stated Complaint: Poss Kidney stones Time Seen by Provider: 06/23/19 10:30 Source: patient Mode of arrival: ambulatory Limitations: no limitations - History of Present Illness Initial Comments: The patient is a 43-year-old female past medical history of diabetes, hypertension, hyperlipidemia who presents to the emergency room with reported left-sided flank pain which radiates around her left groin. Patient reports that the symptoms have been present for the past 2 weeks. She was seen by her primary care physician who completed a urinalysis. Urine was negative and the patient was told to follow up for persistent pain. She went to urgent care today as her pain has become constant and severe. They completed another urinalysis which was negative for infection. Pain is graded as 10 out of 10 causing associated nausea and vomiting. Patient denies dysuria, hematuria did voiding. Denies diarrhea, constipation, melenic stools or hematochezia. No fevers or chills. No history of similar in the past. Patient denies any abnormal vaginal bleeding or discharge. Patient has not had a mental cycle since January however states this is not abnormal for her. She denies concern for . There are no alleviating, precipitating or modifying factors - Related Data Home Medications Medication Instructions Recorded Confirmed metFORMIN HCL [Glucophage] 500 mg PO BID 11/10/17 06/23/19 Ezetimibe [Zetia] 10 mg PO HS 10/06/18 06/23/19 Dextran 70/Hypromellose [Genteal 1 drop BOTH EYES 5XD PRN 12/09/18 06/23/19 Tears 0.1%-0.3% Drop] Glatiramer Acetate [Copaxone] 40 mg SQ MOWEFR 12/09/18 06/23/19 Methotrexate Sodium [Methotrexate] 12.5 mg PO SA 12/09/18 06/23/19 Multivit with Calcium,Iron,Min 1 tab PO DAILY 02/11/19 06/23/19 [Women's Multivitamin] Levothyroxine Sodium [Synthroid] 175 mcg PO DAILY 06/23/19 06/23/19 PARoxetine HCL 30 mg PO DAILY 06/23/19 06/23/19 Previous Rx's Medication Instructions Recorded Apixaban [Eliquis] 5 mg PO BID #180 tab 02/15/19 Carvedilol [Coreg] 3.125 mg PO BID #180 tablet 02/16/19 Allergies Allergy/AdvReac Type Severity Reaction Status Date / Time Nahurdh-Hjs-Hxv Reductase AdvReac FACIAL Verified 06/23/19 14:30 Inhibitor NUMBNESS SEAFOOD Allergy Rash/Hives Uncoded 06/23/19 14:34 Review of Systems ROS Statement: Those systems with pertinent positive or pertinent negative responses have been documented in the HPI. ROS Other: All systems not noted in ROS Statement are negative. Past Medical History Past Medical History: Diabetes Mellitus, Hyperlipidemia, Hypertension, Thyroid Disorder Additional Past Medical History / Comment(s): "dry eyes", "in past had steroid induced gluacoma-resolved", add/adhd, anxiety, depression,"sarcoidosis", eczema, bells palsy affected rt eye,"irreg heart beat"concussion age 12 stated has some learning disablity-problems with spelling.pt stated "was told in past that an ekg had evidence of prior heart attack". pt stated "had stress test approx 6 weeks ago -they never called to tell me if there was a problem so it must have been ok" History of Any Multi-Drug Resistant Organisms: None Reported Past Surgical History: Cholecystectomy, Pacemaker Past Anesthesia/Blood Transfusion Reactions: Motion Sickness Additional Past Anesthesia/Blood Transfusion Reaction / Comment(s): clausterphoba Past Psychological History: ADD/ADHD, Anxiety Smoking Status: Never smoker Past Alcohol Use History: None Reported Past Drug Use History: None Reported - Past Family History Mother Family Medical History: AFIB, Deep Vein Thrombosis (DVT), Osteoarthritis (OA) Father Family Medical History: Osteoarthritis (OA), Thyroid Disorder General Exam Limitations: no limitations General appearance: alert, in distress Eye exam: Present: normal appearance ENT exam: Present: normal exam, mucous membranes moist Respiratory exam: Present: normal lung sounds bilaterally. Absent: respiratory distress, wheezes, rales, rhonchi, stridor Cardiovascular Exam: Present: normal rhythm, bradycardia, normal heart sounds. Absent: systolic murmur, diastolic murmur, rubs, gallop, clicks GI/Abdominal exam: Present: soft, tenderness (llq). Absent: guarding, rebound, rigid Back exam: Present: normal inspection Neurological exam: Present: alert, oriented X3, CN II-XII intact Skin exam: Present: warm, dry, intact, normal color. Absent: rash Course Vital Signs 06/23/19 06/23/19 06/23/19 10:27 12:24 15:33 Temperature 98.5 F 97.8 F Pulse Rate 89 50 L 48 L Respiratory 18 18 16 Rate Blood Pressure 185/108 145/81 138/78 O2 Sat by Pulse 99 96 99 Oximetry Medical Decision Making - Medical Decision Making Upon arrival the patient is placed into room 10. A thorough history and physic al exam is performed. Patient is extremely hypertensive and uncomfortable on presentation. Provided he was established. The patient was given 15 mg of Toradol through the IV, 4 g of morphine and 4 mg of Zofran. The lead EKG was completed. Laboratory studies were conducted. Ultrasound of the pelvis was performed. CBC unremarkable. CMP shows a sodium of 135. Glucose 179. Urinalysis shows moderate blood, small leukocyte esterase, 25 red blood cells and rare bacteria. The patient was given a dose of Rocephin in the ER. Ultrasound was performed which demonstrates a 6 mm obstructing distal left ureteral calculus just before the UVJ causing moderate hydroureter and hydronephrosis. The patient is reevaluated and continues to have 6 out of 10 abdominal pain. I discussed the case with Dr. Salmon who recommended hospital admission to medicine and he will be placed on consult. I will make the patient nothing by mouth at night. Pain medications are orders. Patient awaiting a bed on the floor - Lab Data Result diagrams: 06/24/19 06:18 06/24/19 06:18 Lab Results 06/23/19 06/23/19 06/23/19 Range/Units 10:40 10:40 10:40 WBC 8.9 (3.8-10.6) k/uL RBC 4.96 (3.80-5.40) m/uL Hgb 14.3 (11.4-16.0) gm/dL Hct 43.5 (34.0-46.0) % MCV 87.7 (80.0-100.0) fL MCH 28.8 (25.0-35.0) pg MCHC 32.9 (31.0-37.0) g/dL RDW 13.5 (11.5-15.5) % Plt Count 213 (150-450) k/uL Neutrophils % 74 % Lymphocytes % 17 % Monocytes % 5 % Eosinophils % 2 % Basophils % 0 % Neutrophils # 6.5 (1.3-7.7) k/uL Lymphocytes # 1.5 (1.0-4.8) k/uL Monocytes # 0.4 (0-1.0) k/uL Eosinophils # 0.2 (0-0.7) k/uL Basophils # 0.0 (0-0.2) k/uL Sodium 135 L (137-145) mmol/L Potassium 4.2 (3.5-5.1) mmol/L Chloride 101 (98-107) mmol/L Carbon Dioxide 27 (22-30) mmol/L Anion Gap 7 mmol/L BUN 13 (7-17) mg/dL Creatinine 0.55 (0.52-1.04) mg/dL Est GFR (CKD-EPI)AfAm >90 (>60 ml/min/1.73 sqM) Est GFR (CKD-EPI)NonAf >90 (>60 ml/min/1.73 sqM) Glucose 179 H (74-99) mg/dL Plasma Lactic Acid Raji 1.5 (0.7-2.0) mmol/L Calcium 9.2 (8.4-10.2) mg/dL Total Bilirubin 0.5 (0.2-1.3) mg/dL AST 23 (14-36) U/L ALT 15 (4-34) U/L Alkaline Phosphatase 86 (38-126) U/L Total Protein 7.6 (6.3-8.2) g/dL Albumin 4.2 (3.5-5.0) g/dL Lipase 88 (23-300) U/L Urine Color Urine Appearance (Clear) Urine pH (5.0-8.0) Ur Specific [place] (1.001-1.035) Urine Protein (Negative) Urine Glucose (UA) (Negative) Urine Ketones (Negative) Urine Blood (Negative) Urine Nitrite (Negative) Urine Bilirubin (Negative) Urine Urobilinogen (<2.0) mg/dL Ur Leukocyte Esterase (Negative) Urine RBC (0-5) /hpf Urine WBC (0-5) /hpf Ur Squamous Epith Cells (0-4) /hpf Urine Bacteria (None) /hpf Urine Mucus (None) /hpf Urine HCG, Qual (Not Detectd) Coronavirus (PCR) (Not Detected) 06/23/19 06/23/19 06/23/19 Range/Units 11:30 11:30 13:00 WBC (3.8-10.6) k/uL RBC (3.80-5.40) m/uL Hgb (11.4-16.0) gm/dL Hct (34.0-46.0) % MCV (80.0-100.0) fL MCH (25.0-35.0) pg MCHC (31.0-37.0) g/dL RDW (11.5-15.5) % Plt Count (150-450) k/uL Neutrophils % % Lymphocytes % % Monocytes % % Eosinophils % % Basophils % % Neutrophils # (1.3-7.7) k/uL Lymphocytes # (1.0-4.8) k/uL Monocytes # (0-1.0) k/uL Eosinophils # (0-0.7) k/uL Basophils # (0-0.2) k/uL Sodium (137-145) mmol/L Potassium (3.5-5.1) mmol/L Chloride (98-107) mmol/L Carbon Dioxide (22-30) mmol/L Anion Gap mmol/L BUN (7-17) mg/dL Creatinine (0.52-1.04) mg/dL Est GFR (CKD-EPI)AfAm (>60 ml/min/1.73 sqM) Est GFR (CKD-EPI)NonAf (>60 ml/min/1.73 sqM) Glucose (74-99) mg/dL Plasma Lactic Acid Raji (0.7-2.0) mmol/L Calcium (8.4-10.2) mg/dL Total Bilirubin (0.2-1.3) mg/dL AST (14-36) U/L ALT (4-34) U/L Alkaline Phosphatase (38-126) U/L Total Protein (6.3-8.2) g/dL Albumin (3.5-5.0) g/dL Lipase (23-300) U/L Urine Color Light Yellow Urine Appearance Clear (Clear) Urine pH 5.5 (5.0-8.0) Ur Specific [place] 1.017 (1.001-1.035) Urine Protein Negative (Negative) Urine Glucose (UA) Negative (Negative) Urine Ketones Negative (Negative) Urine Blood Moderate H (Negative) Urine Nitrite Negative (Negative) Urine Bilirubin Negative (Negative) Urine Urobilinogen <2.0 (<2.0) mg/dL Ur Leukocyte Esterase Small H (Negative) Urine RBC 25 H (0-5) /hpf Urine WBC 3 (0-5) /hpf Ur Squamous Epith Cells 1 (0-4) /hpf Urine Bacteria Rare H (None) /hpf Urine Mucus Rare H (None) /hpf Urine HCG, Qual Not Detected (Not Detectd) Coronavirus (PCR) Not Detected (Not Detected) - EKG Data EKG Comments: EKG demonstrates atrial sensed ventricular paced rhythm with a rate of 54. ME interval 344. QRS 28. QTC of 506. Pacemaker appears to capture appropriately Disposition Clinical Impression: Ureteral stone, Bradycardia Disposition: ADMITTED IP TO THIS [facility] Condition: Stable Is patient prescribed a controlled substance at d/c from ED?: No Decision to Admit Reason: Admit from EC Decision Date: 06/23/19 Decision Time: 13:36
--- NOTE | 2019-06-23 12:31 | US ---
EXAMINATION TYPE: US transvaginal DATE OF EXAM: 06/23/2019 COMPARISON: Prior pelvic ultrasound 2016 CLINICAL HISTORY: left pelvic pain TECHNIQUE: Transvaginal (TV). Date of LMP: January EXAM MEASUREMENTS: Uterus: 8.2 x 3.2 x 4.2 cm Endometrial Stripe: 0.4 cm Right Ovary: Obscured by overlying bowel gas/obesity Left Ovary: Obscured by overlying bowel gas/obesity Morbidly obese patient 1. Uterus: Anteverted wnl 2. Endometrium: wnl 3. Right Ovary: Obscured by overlying bowel gas/obesity 4. Left Ovary: Obscured by overlying bowel gas/obesity 5. Bilateral Adnexa: wnl 6. Posterior cul-de-sac: wnl Suboptimal study due to patient's large body habitus. Heterogeneous uterus. Endometrium is within nor mal limits. No free fluid seen. Neither ovary identified. There is visualization of obstructing stone distal left ureter near UVJ causing at least moderate hydroureter. IMPRESSION: Suboptimal study but cause of pain identified as there is 6 mm obstructing distal left ur eter calculus just before UVJ causing moderate hydroureter and presumed hydronephrosis.
[2019-06-23] MEDS ORDERED: cefTRIAXone IN SWFI 1,000 MG/10 ML SYRINGE IVP STA (12:35)
[2019-06-23] MEDS ORDERED: NALOXONE 0.4 MG/ML 1 ML VIAL IV PRN (13:37)
[2019-06-23] MEDS ORDERED: ONDANSETRON 4 MG/2 ML VIAL IVP PRN (13:37)
[2019-06-23] MEDS: SODIUM CHLORIDE 0.9% 1,000 ML IV SCH (13:52)
--- NOTE | 2019-06-23 14:06 | XR ---
EXAMINATION TYPE: XR KUB DATE OF EXAM: 06/23/2019 2:03 PM CLINICAL HISTORY: Left lower quadrant and left flank pain. TECHNIQUE: Two Upright KUB images of the abdomen are obtained. COMPARISON: Abdominal x-ray November 14, 2010. FINDINGS: Scattered gas is seen in non-distended small bowel loops. Gas and fecal material is seen in non-distended colon. Surgical clips right upper pelvis redemonstrated. Partial visualization of card iomegaly and pacemaker wires. Slight scoliotic curvature in the visualized spine. No nephrolithiasis or free air. IMPRESSION: Overall nonobstructive bowel gas pattern.
[2019-06-23] MEDS ORDERED: ACETAMINOPHEN TAB 325 MG TAB PO PRN (14:16)
[2019-06-23] MEDS: FOLIC ACID 1 MG TAB PO SCH (15:29)
[2019-06-23] MEDS ORDERED: ARTIFICIAL TEARS-HYPROMELLOSE DROPS 15 ML BTL BOTH EYES PRN (16:11)
--- NOTE | 2019-06-23 16:15 | P.HPIM ---
History of Present Illness H&P Date: 06/23/19 Chief Complaint: Flank pain 43-year-old female with PMH of multiple sclerosis, cardiac sarcoidosis, sick sinus syndrome post pacemaker and AICD, right-sided Escobedo's palsy, hypertension, prediabetes mellitus presents the the ED for left-sided groin pain. Patient reports vague groin pain that has been ongoing for the past 2 weeks. She describes the pain as cramping in nature. This morning, she woke up around 6 AM, and when she went to go urinate felt excruciating pain in the left groin. She did see her PCP over the past 2 weeks did a urinalysis which showed some blood and was negative for UTI. She went to urgent care today because the pain was so severe. She describes the pain as sharp and stabbing, 10 out of 10 in severity. Her pain was associated with cold sweats and one episode of nonbilious nonbloody vomiting. She denies any headache, lower extremity edema, fever or chills, cough, chest pain, shortness of breath, changes in bowel habits. No changes in appetite or weight. She denies any dizziness, numbness/weakness/tingling of the extremities. She does see Dr. Woodurff for her multiple sclerosis. Patient follows Dr. Hinojosa for her sick sinus syndrome for which she is on Eliquis that is expected to continue until July (6 months). In the ED, patient had hypertensive urgency with BP of 185/108. CBC was unremarkable. CMP showed sodium of 135 and glucose of 179. Urinalysis showed moderate blood, small leukocyte esterase. Transvaginal ultrasound was done which showed a 6 mm stone in the left distal ureter. EKG showed atrial sensed ventricular paced rhythm. Patient is admitted for intractable pain from ureteral stone with urology consulted. Review of Systems Pertinent positives and negatives as discussed in HPI, a complete review of systems was performed and all other systems are negative. Past Medical History Past Medical History: Diabetes Mellitus, Hyperlipidemia, Hypertension, Thyroid Disorder Additional Past Medical History / Comment(s): "dry eyes", "in past had steroid induced gluacoma-resolved", add/adhd, anxiety, depression,"sarcoidosis", eczema, bells palsy affected rt eye,"irreg heart beat"concussion age 12 stated has some learning disablity-problems with spelling.pt stated "was told in past that an ekg had evidence of prior heart attack". pt stated "had stress test approx 6 weeks ago -they never called to tell me if there was a problem so it must have been ok" History of Any Multi-Drug Resistant Organisms: None Reported Past Surgical History: Cholecystectomy, Pacemaker Past Anesthesia/Blood Transfusion Reactions: Motion Sickness Additional Past Anesthesia/Blood Transfusion Reaction / Comment(s): clausterphoba Past Psychological History: ADD/ADHD, Anxiety Smoking Status: Never smoker Past Alcohol Use History: None Reported Past Drug Use History: None Reported - Past Family History Mother Family Medical History: AFIB, Deep Vein Thrombosis (DVT), Osteoarthritis (OA) Father Family Medical History: Osteoarthritis (OA), Thyroid Disorder Medications and Allergies Home Medications Medication Instructions Recorded Confirmed Type metFORMIN HCL [Glucophage] 500 mg PO BID 11/10/17 06/23/19 History Ezetimibe [Zetia] 10 mg PO HS 10/06/18 06/23/19 History Dextran 70/Hypromellose [Genteal 1 drop BOTH EYES 5XD PRN 12/09/18 06/23/19 History Tears 0.1%-0.3% Drop] Glatiramer Acetate [Copaxone] 40 mg SQ MOWEFR 12/09/18 06/23/19 History Methotrexate Sodium [Methotrexate] 12.5 mg PO SA 12/09/18 06/23/19 History Multivit with Calcium,Iron,Min 1 tab PO DAILY 02/11/19 06/23/19 History [Women's Multivitamin] Apixaban [Eliquis] 5 mg PO BID #180 tab 02/15/19 06/23/19 Rx Carvedilol [Coreg] 3.125 mg PO BID #180 tablet 02/16/19 06/23/19 Rx Levothyroxine Sodium [Synthroid] 175 mcg PO DAILY 06/23/19 06/23/19 History PARoxetine HCL 30 mg PO DAILY 06/23/19 06/23/19 History Allergies Allergy/AdvReac Type Severity Reaction Status Date / Time Txudgsu-Fex-Ywd Reductase AdvReac FACIAL Verified 06/23/19 14:30 Inhibitor NUMBNESS SEAFOOD Allergy Rash/Hives Uncoded 06/23/19 14:34 Physical Exam Vitals: Vital Signs Temp Pulse Resp BP Pulse Ox 06/23/19 15:33 97.8 F 48 L 16 138/78 99 06/23/19 12:24 50 L 18 145/81 96 06/23/19 10:27 98.5 F 89 18 185/108 99 Intake and Output 06/23/19 06/23/19 06/23/19 06:59 14:59 22:59 Other: Weight 124.738 kg General: [non toxic], [no distress], [appears at stated age] Derm: [warm], [dry] Head: [atraumatic], [normocephalic], [symmetric] Eyes: [EOMI], [no lid lag], [anicteric sclera] Mouth: [no lip lesion], [mucus membranes moist] Cardiovascular: [S1S2 reg], [no murmur], [positive DP pulse bilateral], Lungs: [CTA bilateral], [no rhonchi, no rales] , [no accessory muscle use] Abdominal: [soft], [tenderness to palpation in the left lower quadrant without rebound], [no guarding], [no appreciable organomegaly] Ext: [no gross muscle atrophy], [no edema], [no contractures] Neuro: [ CN II-XI grossly intact except paralysis of the right seventh cranial nerve], [no focal neuro deficits] Psych: [Alert], [oriented], [appropriate affect] Results CBC & Chem 7: 06/23/19 10:40 06/23/19 10:40 Labs: Abnormal Lab Results - Last 24 Hours (Table) 06/23/19 06/23/19 Range/Units 10:40 11:30 Sodium 135 L (137-145) mmol/L Glucose 179 H (74-99) mg/dL Urine Blood Moderate H (Negative) Ur Leukocyte Esterase Small H (Negative) Urine RBC 25 H (0-5) /hpf Urine Bacteria Rare H (None) /hpf Urine Mucus Rare H (None) /hpf Assessment and Plan Assessment: Abdominal pain likely related to 6 mm obstructing distal left ureteral calculus with hydroureter and presumed hydronephrosis Diabetes mellitus with hyperglycemia Hypertensive urgency Multiple sclerosis Cardiac sarcoidosis with sick sinus syndrome Escobedo's palsy Hypothyroidism Anxiety Morbid obesity with BMI 44.4 As seen on transvaginal ultrasound. Plans: Urine strainer. Follow urology maria esther mmendations. Pain control with morphine as needed. Zofran as needed for nausea or vomiting. Continue Rocephin for now for treatment a UTI. Nothing by mouth after midnight. Ykvfw-lk-zrrd glucose 179. A1c 6.3 in May. Plans: Insulin sliding scale. Regular Accu-Cheks. Hyperglycemic precautions. Consistent carb diet. BP 185/108 on admission. Likely related to pain. Plans: Now resolved. Most recent BP 158/79. Continue Coreg. Monitor vitals, adjust medications as necessary. Ensure adequate pain control. Patient sees Dr. Woodruff. Plans: Galatimer 40 mg subcutaneous every Thursday We and Thursday. Methotrexate 12.5 mg every Thursday. Follow neurology in the outpatient setting. Currently stable. Post AICD and pacemaker. Plans: Continue Coreg. Continue Eliquis. Follow c ardiology in the outpatient setting. Likely related to sarcoidosis. Completed steroids in the past. Plans: Continue to monitor. GenTeal eyedrops as needed. Plans: Resume Synthroid. Plans: Resume paroxetine. Plans: Patient would benefit from structured weight loss program. DVT prophylaxis: [Eliquis] Discussed with: [Patient and ] Anticipated discharge: [1-2 days] Anticipated discharge place: [Home] A total of [45] minutes was spent on the care of this complex patient more than 50% of the time was spent in counseling and care coordination. Patient names her Fabian decision maker if she can't make decisions for herself. Patient would like to be full code.
[2019-06-23] MEDS: CARVEDILOL 3.125 MG TAB PO SCH (17:35)
[2019-06-23] MEDS: INSULIN ASPART (NovoLOG) 100 UNIT/ML VIAL SQ SCH ×2 (17:39→20:42)
[2019-06-23] MEDS: TAMSULOSIN 0.4 MG CAP.ER.24H PO SCH ×2 (17:45→20:41)
[2019-06-23 17:58] LABS: Glucose,Whole Blood 111 mg/dL (75-99)
[2019-06-23] MEDS: KETOROLAC 30 MG/ML 1 ML VIAL IVP PRN (19:50)
[2019-06-23 20:40] LABS: Glucose,Whole Blood 157 mg/dL (75-99)
[2019-06-23] MEDS ORDERED: APIXABAN 5 MG TAB PO SCH (21:00)
[2019-06-24] MEDS: SODIUM CHLORIDE 0.9% 1,000 ML IV SCH ×3 (00:38→21:15)
[2019-06-24 02:06] LABS: Glucose,Whole Blood 122 mg/dL (75-99)
[2019-06-24] MEDS: KETOROLAC 30 MG/ML 1 ML VIAL IVP PRN ×3 (02:10→17:35)
[2019-06-24 06:44] LABS: Basophils % (A) 0 %; Eosinophils # (A) 0.2 k/uL (0-0.7); Eosinophils % (A) 2 %; HCT 38.1 % (34.0-46.0); HGB 12.2 gm/dL (11.4-16.0); Lymphocytes # (A) 1.6 k/uL (1.0-4.8); Lymphocytes % (A) 18 %; MCH 28.4 pg (25.0-35.0); MCHC 32.2 g/dL (31.0-37.0); MCV 88.4 fL (80.0-100.0); Monocytes # (A) 0.5 k/uL (0-1.0); Monocytes % (A) 6 %; Neutrophils # (A) 6.2 k/uL (1.3-7.7); Neutrophils % (A) 71 %; Platelet Count 183 k/uL (150-450); RDW 13.8 % (11.5-15.5); WBC 8.7 k/uL (3.8-10.6)
[2019-06-24 06:54] LABS: Glucose,Whole Blood 134 mg/dL (75-99)
[2019-06-24] MEDS: INSULIN ASPART (NovoLOG) 100 UNIT/ML VIAL SQ SCH ×4 (06:55→21:38)
[2019-06-24 06:56] LABS: African American GFR (CKD) >90 (>60 ml/min/1.73 sqM); Anion Gap 3 mmol/L; Blood Urea Nitrogen 13 mg/dL (7-17); Calcium 8.6 mg/dL (8.4-10.2); Carbon Dioxide 29 mmol/L (22-30); Chloride 104 mmol/L (98-107); Glucose 132 mg/dL (74-99); Non-African American GFR(CKD) 85 (>60 ml/min/1.73 sqM); Potassium 4.3 mmol/L (3.5-5.1); Sodium 136 mmol/L (137-145)
[2019-06-24] MEDS: LEVOTHYROXINE 100 MCG TAB PO SCH (06:56)
[2019-06-24] MEDS: LEVOTHYROXINE 75 MCG TAB PO SCH (06:56)
[2019-06-24] MEDS: CARVEDILOL 3.125 MG TAB PO SCH ×3 (08:26→17:11)
[2019-06-24] MEDS: PARoxetine 10 MG TAB PO SCH ×2 (08:27→08:38)
[2019-06-24] MEDS: TAMSULOSIN 0.4 MG CAP.ER.24H PO SCH (08:27)
[2019-06-24] MEDS ORDERED: Glatiramer Acetate [Copaxone] SQ SCH (09:00)
[2019-06-24] MEDS: EZETIMIBE 10 MG TAB PO SCH (10:56)
--- NOTE | 2019-06-24 10:59 | P.PN ---
Subjective Progress Note Date: 06/24/19 Principal diagnosis: Abdominal pain Patient was seen and examined. No acute events overnight. She reports significant improvement in her abdominal pain since yesterday. She denies any nausea or vomiting currently. Patient reports belching and burping up air. Patient states that the symptoms were similar to when she was diagnosed with multiple sclerosis. She denies any history of intubations. She denies any difficulty breathing or swallowing. She denies any chest pain, shortness of breath or palpitations. No fever or chills. Plans for lithotripsy today. Objective - Vital Signs Vital signs: Vital Signs Temp 97.9 F 06/24/19 08:54 Pulse 50 L 06/24/19 08:54 Resp 16 06/24/19 08:54 BP 127/70 06/24/19 08:54 Pulse Ox 95 06/24/19 08:54 Intake & Output 06/23/19 06/24/19 06/24/19 18:59 06:59 18:59 Output Total 500 400 Balance -500 -400 Weight 124.8 kg Output: Urine 500 400 Other: Voiding Method Toilet - Exam General: [non toxic], [no distress], [appears at stated age] Derm: [warm], [dry] Head: [atraumatic], [normocephalic], [symmetric] Eyes: [EOMI], [no lid lag], [anicteric sclera] Mouth: [no lip lesion], [mucus membranes moist] Cardiovascular: [S1S2 reg], [no murmur], [positive DP pulse bilateral], Lungs: [CTA bilateral], [no rhonchi, no rales] , [no accessory muscle use] Abdominal: [soft], [mild left-sided CVA tenderness, improved left lower quadrant tenderness with palpation], [no guarding], [no appreciable organomegaly] Ext: [no gross muscle atrophy], [no edema], [no contractures] Neuro: [ CN II-XI grossly intact except paralysis of the right seventh cranial nerve], [no focal neuro deficits] Psych: [Alert], [oriented], [appropriate affect] - Labs CBC & Chem 7: 06/24/19 06:18 06/24/19 06:18 Labs: Abnormal Lab Results - Last 24 Hours (Table) 06/23/19 06/23/1906/22/20 Range/Units 10:40 11:30 17:38 Sodium 135 L (137-145) mmol/L Glucose 179 H (74-99) mg/dL POC Glucose (mg/dL) 111 H (75-99) mg/dL Urine Blood Moderate H (Negative) Ur Leukocyte Esterase Small H (Negative) Urine RBC 25 H (0-5) /hpf Urine Bacteria Rare H (None) /hpf Urine Mucus Rare H (None) /hpf 06/23/19 06/24/19 06/24/19 Range/Units 20:39 02:04 06:18 Sodium 136 L (137-145) mmol/L Glucose 132 H (74-99) mg/dL POC Glucose (mg/dL) 157 H 122 H (75-99) mg/dL Urine Blood (Negative) Ur Leukocyte Esterase (Negative) Urine RBC (0-5) /hpf Urine Bacteria (None) /hpf Urine Mucus (None) /hpf 06/24/19 Range/Units 06:53 Sodium (137-145) mmol/L Glucose (74-99) mg/dL POC Glucose (mg/dL) 134 H (75-99) mg/dL Urine Blood (Negative) Ur Leukocyte Esterase (Negative) Urine RBC (0-5) /hpf Urine Bacteria (None) /hpf Urine Mucus (None) /hpf Assessment and Plan Assessment: Abdominal pain likely related to 6 mm obstructing distal left ureteral calculus with hydroureter and presumed hydronephrosis Diabetes mellitus with hyperglycemia Multiple sclerosis Cardiac sarcoidosis with sick sinus syndrome Escobedo's palsy Hypothyroidism Anxiety Morbid obesity with BMI 44.4 Resolved: Hypertensive urgency As seen on transvaginal ultrasound. Plans: Urine strainer. Follow urology recommendations. Pain control with morphine as needed. Zofran as needed for nausea or vomiting. Continue Rocephin for now for treatment a UTI. Plans for lithotripsy today. Jwzwd-cm-bfqe glucose 134. A1c 6.3 in May. Plans: Insulin sliding scale. Regular Accu-Cheks. Hyperglycemic precautions. Consistent carb diet. Patient sees Dr. Woodruff. Plans: Galatimer 40 mg subcutaneous every Thursday and Thursday. Methotrexate 12.5 mg every Thursday. Follow neurology in the outpatient setting. Currently stable. Advised patient to discuss with anesthesiologist prior to surgical procedure, patient verbalized understanding. Post AICD and pacemaker. Plans: Continue Coreg. Continue Eliquis. Follow cardiology in the outpatient setting. Likely related to sarcoidosis. Completed steroids in the past. Plans: Continue to monitor. GenTeal eyedrops as needed. Plans: Resume Synthroid. Plans: Resume paroxetine. Plans: Patient would benefit from structured weight loss program. [Patient with improved pain. Plans for lithotripsy today. She is pending clinical improvement. Likely DC in 1-2 days.]
[2019-06-24 11:52] LABS: Glucose,Whole Blood 133 mg/dL (75-99)
[2019-06-24] MEDS ORDERED: LEVOTHYROXINE 100 MCG TAB PO SCH (12:00)
[2019-06-24] MEDS ORDERED: PARoxetine 20 MG TAB PO SCH (12:00)
[2019-06-24] MEDS: FOLIC ACID 1 MG TAB PO SCH (16:00)
[2019-06-24] MEDS: MORPHINE SULFATE 4 MG/ML SYRINGE IV PRN ×2 (16:20→21:16)
[2019-06-24 16:30] LABS: Glucose,Whole Blood 99 mg/dL (75-99)
[2019-06-24] MEDS ORDERED: LACTATED RINGERS 1,000 ML IV ONE (17:58)
[2019-06-24 18:15] LABS: Glucose,Whole Blood 91 mg/dL (75-99)
[2019-06-24] MEDS ORDERED: ONDANSETRON 4 MG/2 ML VIAL IVP ONE (18:16)
[2019-06-24] MEDS ORDERED: LIDOCAINE 1% INJ 10MG/ML (20 ML MDV) ONE (19:09)
[2019-06-24] MEDS ORDERED: fentaNYL (PF) 50 MCG/ML 2 ML AMP ONE (19:09)
[2019-06-24] MEDS ORDERED: PROPOFOL 10 MG/ML 20 ML VIAL IV ONE (19:09)
[2019-06-24] MEDS ORDERED: MIDAZOLAM 2 MG/2 ML VIAL ONE (19:09)
--- NOTE | 2019-06-24 20:03 | P.OP ---
Date of Procedure: 06/24/19 Preoperative Diagnosis: Left ureteral calculus Postoperative Diagnosis: Same Procedure(s) Performed: Cystoscopy, left ureteroscopy with Holmium laser lithotripsy Anesthesia: MELIDA Surgeon: Jamarcus Salmon Estimated Blood Loss (ml): 0 IV fluids (ml): 500 Pathology: none sent Condition: stable Disposition: PACU Indications for Procedure: 43 yo WF with no prior history of UTIs or urolithiasis. She presents with a two-week history of left flank pain radiating to the left groin. Additionally, she has experienced significant urgency for the past 2 days. Her pain intensified this morning, and was associated with nausea and vomiting. She was evaluated in the emergency room. Urinalysis showed evidence of microhematuria. Ultrasound showed a 6 mm left distal ureteral calculus, with proximal ureteral dilation. She has elected to undergo ureteroscopic removal of the calculus. Preoperatively, she expressed a strong desire to avoid placement of the stent if possible. Operative Findings: 4-5 mm calculus at left ureterovesical junction, fragmented completely. Description of Procedure: The patient was taken to the operating room and placed in the dorsolithotomy position, with legs supported in Evert stirrups. The external genitalia was prepped and draped sterilely. The 30 lens was used to introduce the 19-Azeri Stortz cystoscopic sheath through the urethra and into the bladder under direct vision. The bladder was examined in its entirety. The right ureteral orifice appeared normal. A calculus was seen impacted at the left ureteral orifice. No tumors or other foreign bodies were seen. The Kymeta semirigid ureteroscope was advanced into the bladder, and the left ureteral orifice was cannulated. The 200 micron Holmium laser probe was passed through the ureteroscope, and lit hotripsy was performed. This was continued until the calculus was adequately fragmented, with no calculus fragments exceeding the size of the laser fiber tip. There was no evidence of ureteral perforation. The semirigid ureteroscope was removed, and the Olympus flexible ureteroscope was passed into the bladder. The left ureteral orifice was cannulated, and the ureteroscope was slowly advanced up to the left renal pelvis. Each calyx was examined. There was evidence of stagnant urine was several small clots, but no calculi were seen. There was no purulence. The ureteroscope was slowly withdrawn under direct vision. The cystoscope was then used to drain the bladder. No calculus fragments were retrieved adequate for analysis. The patient tolerated the procedure well and was taken to the recovery room in stable condition. MUSIC ROCKS Report: Procedure Acuity: Urgent Stone Size and Location: 4 mm, left UVJ Ureteral Dilation: No Ureteral Access Sheath Used: No Stone Sent for Analysis: No All Stones/Fragments Were Removed with a Basket: No Complications: No Preoperative Antibiotics Given: Yes Stent Placed: No If Stent Placed, Was String Left Attached: N/A
[2019-06-24 20:19] LABS: Glucose,Whole Blood 89 mg/dL (75-99)
[2019-06-25 00:33] VITALS: RESP 16
[2019-06-25 01:47] LABS: Glucose,Whole Blood 92 mg/dL (75-99)
[2019-06-25] MEDS: KETOROLAC 30 MG/ML 1 ML VIAL IVP PRN ×2 (05:56→12:31)
[2019-06-25] MEDS: LEVOTHYROXINE 75 MCG TAB PO SCH (06:01)
[2019-06-25] MEDS: LEVOTHYROXINE 100 MCG TAB PO SCH (06:01)
[2019-06-25] MEDS: SODIUM CHLORIDE 0.9% 1,000 ML IV SCH (06:06)
[2019-06-25 06:44] LABS: Glucose,Whole Blood 111 mg/dL (75-99)
[2019-06-25] MEDS: INSULIN ASPART (NovoLOG) 100 UNIT/ML VIAL SQ SCH ×2 (06:44→12:32)
[2019-06-25] MEDS: TAMSULOSIN 0.4 MG CAP.ER.24H PO SCH (08:27)
[2019-06-25] MEDS: CARVEDILOL 3.125 MG TAB PO SCH (08:27)
[2019-06-25] MEDS: PARoxetine 10 MG TAB PO SCH (08:28)
[2019-06-25] MEDS ORDERED: METHOTREXATE SODIUM 2.5 MG TAB PO SCH (09:00)
--- NOTE | 2019-06-25 10:04 | P.PN ---
Progress Note - Text Progress Note Date: 06/25/19 Ms. Tran underwent successful removal of her left distal ureteral calculus yesterday. She currently reports pressure with voiding but denies pain. She is afebrile with stable vital signs. We discussed the fact that her calculus was likely composed of calcium oxalate, based on its appearance. She is urologically stable for discharge and will follow up with me as an outpatient. Please notify me if I can be of any further assistance.
--- NOTE | 2019-06-25 10:37 | P.DS ---
Providers Date of admission: 06/23/19 13:38 Expected date of discharge: 06/25/19 Attending physician: Fidelina Dillon MD Consults: 06/23/19 13:38 Consult Physician Urgent Consulting Provider: Jamarcus Salmon Consult Reason/Comments: left ureterolithiasis Do you want consulting provider notified?: Already Contacted Primary care physician: [facility] Course: 43-year-old female with PMH of multiple sclerosis, cardiac sarcoidosis, sick sinus syndrome post pacemaker and AICD, right-sided Escobedo's palsy, hypertension, prediabetes mellitus presents the the ED for left-sided groin pain. Patient reports vague groin pain that has been ongoing for the past 2 weeks. She describes the pain as cramping in nature. This morning, she woke up around 6 AM, and when she went to go urinate felt excruciating pain in the left groin. She did see her PCP over the past 2 weeks did a urinalysis which showed some blood and was negative for UTI. She went to urgent care today because the pain was so severe. She describes the pain as sharp and stabbing, 10 out of 10 in severity. Her pain was associated with cold sweats and one episode of nonbilious nonbloody vomiting. She denies any headache, lower extremity edema, fever or chills, cough, chest pain, shortness of breath, changes in bowel habits. No changes in appetite or weight. She denies any dizziness, numbness/ weakness/tingling of the extremities. She does see Dr. Woodruff for her multiple sclerosis. Patient follows Dr. Hinojosa for her sick sinus syndrome for which she is on Eliquis that is expected to continue until July (6 months). In the ED, patient had hypertensive urgency with BP of 185/108. CBC was unremarkable. CMP showed sodium of 135 and glucose of 179. Urinalysis showed moderate blood, small leukocyte esterase. Transvaginal ultrasound was done which showed a 6 mm stone in the left distal ureter. EKG showed atrial sensed ventricular paced rhythm. Patient is admitted for intractable pain from ureteral stone with urology consulted. Patient was started on Rocephin and completed 3 days for treatment of UTI. Urology was consulted and she underwent lithotripsy. Otherwise, her home medications were resumed. Patient was seen and examined. No acute events overnight. Patient reports complete resolution of her pain after lithotripsy. She does complain of pressure-like sensation in her suprapubic area. She denies any chest pain, shortness breath or palpitations. No nausea or vomiting. No fever or chills. General: [non toxic], [no distress], [appears at stated age] Derm: [warm], [dry] Head: [atraumatic], [normocephalic], [symmetric] Eyes: [EOMI], [no lid lag], [anicteric sclera] Mouth: [no lip lesion], [mucus membranes moist] Cardiovascular: [S1S2 reg], [no murmur], [positive DP pulse bilateral], Lungs: [CTA bilateral], [no rhonchi, no rales] , [no accessory muscle use] Abdominal: [soft], [mild left-sided CVA tenderness, improved left lower quadrant tenderness with palpation], [no guarding], [no appreciable organomegaly] Ext: [no gross muscle atrophy], [no edema], [no contractures] Neuro: [ CN II-XI grossly intact except paralysis of the right seventh cranial nerve], [no focal neuro deficits] Psych: [Alert], [oriented], [appropriate affect] Abdominal pain likely related to 6 mm obstructing distal left ureteral calculus with hydroureter and presumed hydronephrosis Diabetes mellitus with hyperglycemia Multiple sclerosis Cardiac sarcoidosis with sick sinus syndrome Escobedo's palsy Hypothyroidism Anxiety Morbid obesity with BMI 44.4 Resolved: Hypertensive urgency As seen on transvaginal ultrasound. Plans: Completed 3 days of antibiotics. Lithotripsy yesterday successful. Follow urology in the outpatient setting. Kmfpw-yl-hgbe glucose 111. A1c 6.3 in May. Plans: Insulin sliding scale. Regular Accu-Cheks. Hyperglycemic precautions. Consistent carb diet. Patient sees Dr. Woodruff. Plans: Galatimer 40 mg subcutaneous every Thursday and Thursday. Methotrexate 12.5 mg every Thursday. Follow neurology in the outpatient setting. Currently stable. Post AICD and pacemaker. Plans: Continue Coreg. Continue Eliquis. Follow cardiology in the outpatient setting. Likely related to sarcoidosis. Completed steroids in the past. Plans: Continue to monitor. GenTeal eyedrops as needed. Plans: Resume Synthroid. Plans: Resume paroxetine. Plans: Patient would benefit from structured weight loss program. Pertinent Studies: Transvaginal ultrasound, KUB Procedures: Lithotripsy Patient Condition at Discharge: Stable Plan - Discharge Summary Discharge Rx Participant: No New Discharge Prescriptions: New Tamsulosin [Flomax] 0.4 mg PO DAILY #7 cap.er.24h Ketorolac [Toradol] 10 mg PO Q6HR PRN #12 tab PRN Reason: Severe Pain Continue metFORMIN HCL [Glucophage] 500 mg PO BID Ezetimibe [Zetia] 10 mg PO HS Methotrexate Sodium [Methotrexate] 12.5 mg PO SA Glatiramer Acetate [Copaxone] 40 mg SQ MOWEFR Dextran 70/Hypromellose [Genteal Tears 0.1%-0.3% Drop] 1 drop BOTH EYES 5XD PRN PRN Reason: Dry Eye(S) Multivit with Calcium,Iron,Min [Women's Multivitamin] 1 tab PO DAILY Apixaban [Eliquis] 5 mg PO BID #180 tab Carvedilol [Coreg] 3.125 mg PO BID #180 tablet PARoxetine HCL 30 mg PO DAILY Levothyroxine Sodium [Synthroid] 175 mcg PO DAILY Discharge Medication List metFORMIN HCL [Glucophage] 500 mg PO BID 11/10/17 [History] Ezetimibe [Zetia] 10 mg PO HS 10/06/18 [History] Dextran 70/Hypromellose [Genteal Tears 0.1%-0.3% Drop] 1 drop BOTH EYES 5XD PRN 12/09/18 [History] Glatiramer Acetate [Copaxone] 40 mg SQ MOWEFR 12/09/18 [History] Methotrexate Sodium [Methotrexate] 12.5 mg PO SA 12/09/18 [History] Multivit with Calcium,Iron,Min [Women's Multivitamin] 1 tab PO DAILY 02/11/19 [History] Apixaban [Eliquis] 5 mg PO BID #180 tab 02/15/19 [Rx] Carvedilol [Coreg] 3.125 mg PO BID #180 tablet 02/16/19 [Rx] Levothyroxine Sodium [Synthroid] 175 mcg PO DAILY 06/23/19 [History] PARoxetine HCL 30 mg PO DAILY 06/23/19 [History] Ketorolac [Toradol] 10 mg PO Q6HR PRN #12 tab 06/25/19 [Rx] Tamsulosin [Flomax] 0.4 mg PO DAILY #7 cap.er.24h 06/25/19 [Rx] Follow up Appointment(s)/Referral(s): Jamarcus Salmon MD [STAFF PHYSICIAN] - 1 Week Costa Falcon [Primary Care Provider] - 1-2 days Activity/Diet/Wound Care/Special Instructions: Diet: Low-salt Follow-up with PCP within 3 days of discharge. Follow-up with urology within 1 week of discharge. Take all medications as advised. Come back to the ED or call 911 for worsening abdominal pain, fevers greater than 100.4 Fahrenheit, intractable nausea or vomiting. Discharge Disposition: HOME SELF-CARE
[2019-06-25] MEDS: EZETIMIBE 10 MG TAB PO SCH (12:32)
[2019-06-25 12:42] VITALS: BP 134/77; PULSE 55; TEMP 98.4
== END 2019-06-25 13:42 | disposition home or self-care (01) ==
LOC: EC 10:24 → 5NMEDONC 13:38 → 6PED 14:15
PROVIDERS: ADMIT Family Medicine; ATTEND Family Medicine
DX: N20.1 Calculus of ureter (principal); N39.0 Urinary tract infection, site not specified; I16.0 Hypertensive urgency; E11.65 Type 2 diabetes mellitus with hyperglycemia; G35 Multiple sclerosis; D86.89 Sarcoidosis of other sites; I49.5 Sick sinus syndrome; G51.0 Bell's palsy; E03.9 Hypothyroidism, unspecified; F41.9 Anxiety disorder, unspecified; E66.01 Morbid (severe) obesity due to excess calories; I10 Essential (primary) hypertension; E78.5 Hyperlipidemia, unspecified; H04.123 Dry eye syndrome of bilateral lacrimal glands; F90.9 Attention-deficit hyperactivity disorder, unspecified type; F32.9 Major depressive disorder, single episode, unspecified; L30.9 Dermatitis, unspecified; F81.89 Other developmental disorders of scholastic skills; F40.240 Claustrophobia; I49.9 Cardiac arrhythmia, unspecified; Z68.41 Body mass index [BMI] 40.0-44.9, adult; Z11.59 Encounter for screening for other viral diseases; Z79.84 Long term (current) use of oral hypoglycemic drugs; Z79.899 Other long term (current) drug therapy; Z79.890 Hormone replacement therapy; Z88.8 Allergy status to other drugs, medicaments and biological substances; Z91.013 Allergy to seafood; Z86.79 Personal history of other diseases of the circulatory system; Z87.820 Personal history of traumatic brain injury; Z90.49 Acquired absence of other specified parts of digestive tract; Z87.898 Personal history of other specified conditions; Z95.810 Presence of automatic (implantable) cardiac defibrillator; Z79.01 Long term (current) use of anticoagulants; Z82.49 Family history of ischemic heart disease and other diseases of the circulatory system; Z83.49 Family history of other endocrine, nutritional and metabolic diseases; Z82.61 Family history of arthritis
CPT/HCPCS: 96361 ×2; 96376 ×3; 96374; 96375; 99285; 36415; 93005; 80053; 80048; 83605; 83690; 85025 ×2; 81001; 81025; 87635; 74018; 76830; 52353; G0378 ×3; C1769; J2250; J2270 ×2; J2405 ×2; J2001; J0696 ×3; J8610; J3010; J1885 ×3; J2704

== ENCOUNTER → 2019-09-01 | Day surgery (SDC) | payer OTHER ==
[~2019-09-01] MED LIST: LACTATED RINGERS 1,000 ML IV SCH; PROPOFOL 10 MG/ML 20 ML VIAL IV ONE; SODIUM CHLORIDE 0.9% 1,000 ML IV SCH; SODIUM CHLORIDE 0.9% 500 ML 500 ML IV ONE
[2019-09-01 06:42] VITALS: RESP 16; TEMP 98.3
[2019-09-01 06:52] LABS: Glucose,Whole Blood 143 mg/dL (75-99)
[2019-09-01 07:23] LABS: African American GFR (CKD) >90 (>60 ml/min/1.73 sqM); Anion Gap 6 mmol/L; Blood Urea Nitrogen 13 mg/dL (7-17); Calcium 8.7 mg/dL (8.4-10.2); Carbon Dioxide 28 mmol/L (22-30); Chloride 104 mmol/L (98-107); Glucose 133 mg/dL (74-99); Non-African American GFR(CKD) >90 (>60 ml/min/1.73 sqM); Potassium 4.1 mmol/L (3.5-5.1); Sodium 138 mmol/L (137-145)
[2019-09-01 09:02] VITALS: BP 152/82; PULSE 61
--- NOTE | 2019-09-05 17:12 | P.PCN ---
Preoperative Diagnosis: Diagnosis ICD implant, dual-chamber for sarcoidosis and Sick Sinus Syndrome [employer] [id number], serial number [id number] Atrial pacing threshold 1.6. At 0.5 ms, P waves 1.4 mV, pacing impedance 400 ohms RV pacing threshold 0.6 V at 0.5 ms, R waves greater than 12 mV and pacing impedance of 400 ohms A DC fibber shock was used to induce ventricular fibrillation. This was adequately and appropriately detected at least sensitivity and successfully internally defibrillated with a 10 J shock, Total polarity. Charge time 1.8 seconds shocking impedance 77 ohms No post shock noise The device was then programmed appropriately with MADIT RIT programming with appropriate antitachycardia pacing cardioversion and defibrillation Result Successful defibrillation level testing at 10 J ICD function normal
== END ==
LOC: CATHEP 06:05
PROVIDERS: ATTEND Internal Medicine Clinical Cardiac Electrophysiology
DX: I49.5 Sick sinus syndrome (principal); D86.9 Sarcoidosis, unspecified
CPT/HCPCS: 93642; 80048; 81025; J2704

== ENCOUNTER 2019-11-25 22:31 | Emergency (ER) | payer OTHER ==
[2019-11-25 23:46] LABS: Basophils % (A) 0 %; Eosinophils # (A) 0.2 k/uL (0-0.7); Eosinophils % (A) 3 %; HCT 39.7 % (34.0-46.0); HGB 13.1 gm/dL (11.4-16.0); Lymphocytes # (A) 1.8 k/uL (1.0-4.8); Lymphocytes % (A) 23 %; MCH 29.8 pg (25.0-35.0); MCHC 33.1 g/dL (31.0-37.0); MCV 90.1 fL (80.0-100.0); Mean Platelet Volume 8.9; Monocytes # (A) 0.5 k/uL (0-1.0); Monocytes % (A) 7 %; Neutrophils # (A) 4.9 k/uL (1.3-7.7); Neutrophils % (A) 64 %; Platelet Count 193 k/uL (150-450); RBC 4.41 m/uL (3.80-5.40); RDW 14.5 % (11.5-15.5); WBC 7.6 k/uL (3.8-10.6)
--- NOTE | 2019-11-25 23:57 | XR ---
EXAMINATION TYPE: XR chest 2V DATE OF EXAM: 11/25/2019 COMPARISON: 08/18/2019 HISTORY: Cough TECHNIQUE: 2 views FINDINGS: Heart is borderline enlarged. There is mild pulmonary congestion. There is left axillary pa cemaker. There are chest leads. There is no pleural effusion. IMPRESSION: Pulmonary vascularity increased slightly compared to old exam. This could be early heart failure.
[2019-11-25 23:59] LABS: ALT 12 U/L (4-34); AST 23 U/L (14-36); African American GFR (CKD) >90 (>60 ml/min/1.73 sqM); Albumin 3.8 g/dL (3.5-5.0); Alkaline Phosphatase 76 U/L (38-126); Anion Gap 8 mmol/L; Blood Urea Nitrogen 11 mg/dL (7-17); Calcium 9.4 mg/dL (8.4-10.2); Carbon Dioxide 22 mmol/L (22-30); Chloride 106 mmol/L (98-107); Glucose 180 mg/dL (74-99); Magnesium 1.6 mg/dL (1.6-2.3); Non-African American GFR(CKD) >90 (>60 ml/min/1.73 sqM); Sodium 136 mmol/L (137-145); Total Bilirubin 0.5 mg/dL (0.2-1.3); Total Protein 7.1 g/dL (6.3-8.2)
[2019-11-26 00:08] LABS: D-Dimer 0.36 mg/L FEU (<0.60); INR 0.9 (<1.2); Prothrombin Time 9.7 sec (9.0-12.0)
[2019-11-26 00:24] LABS: Partial Thromboplastin Time 21.1 sec (22.0-30.0)
--- NOTE | 2019-11-26 01:19 | ED ---
General Adult HPI - General Chief complaint: Chest Pain Stated complaint: R Leg Swelling Time Seen by Provider: 11/25/19 22:51 Source: patient Mode of arrival: wheelchair Limitations: no limitations - History of Present Illness Initial comments: 's patient is 44-year-old woman presenting to be evaluated for shortness of breath as well as right knee pain. Patient states that the symptoms were going on since early in the day. She has not had chest pain. No fever or chills. No productive cough. No change in urination. Onset/Timin -: days(s) Location: right, lower extremity Consistency: constant Worsens with: none Associated Symptoms: shortness of breath Treatments Prior to Arrival: none - Related Data Home Medications Medication Instructions Recorded Confirmed metFORMIN HCL [Glucophage] 500 mg PO BID 11/10/17 09/01/19 Ezetimibe [Zetia] 10 mg PO HS 10/06/18 09/01/19 Dextran 70/Hypromellose [Genteal 1 drop BOTH EYES 5XD PRN 12/09/18 09/01/19 Tears 0.1%-0.3% Drop] Glatiramer Acetate [Copaxone] 40 mg SQ MOWEFR 12/09/18 09/01/19 metHOTREXate sodium [Methotrexate] 12.5 mg PO SA 12/09/18 09/01/19 Multivit with Calcium,Iron,Min 1 tab PO DAILY 02/11/19 09/01/19 [Women's Multivitamin] Levothyroxine Sodium [Synthroid] 175 mcg PO DAILY 06/23/19 09/01/19 PARoxetine HCL 30 mg PO DAILY 06/23/19 09/01/19 Previous Rx's Medication Instructions Recorded Apixaban [Eliquis] 5 mg PO BID #180 tab 02/15/19 carvediloL [Coreg] 3.125 mg PO BID #180 tablet 02/16/19 Ketorolac [Toradol] 10 mg PO Q6HR PRN #12 tab 06/25/19 Allergies Allergy/AdvReac Type Severity Reaction Status Date / Time Czttmtp-Zny-Opu Reductase AdvReac FACIAL Verified 11/25/19 22:47 Inhibitor NUMBNESS SEAFOOD Allergy Rash/Hives Uncoded 11/25/19 22:47 Review of Systems ROS Statement: Those systems with pertinent positive or pertinent negative responses have been documented in the HPI. ROS Other: All systems not noted in ROS Statement are negative. Constitutional: Denies: fever, chills Respiratory: Reports: as per HPI, dyspnea. Denies: cough, wheezes, hemoptysis Cardiovascular: Denies: chest pain, palpitations, orthopnea, edema, syncope Gastrointestinal: Denies: abdominal pain, nausea, vomiting, diarrhea, melena, hematochezia Genitourinary: Denies: dysuria, hematuria Musculoskeletal: Reports: as per HPI, arthralgia. Denies: back pain Skin: Denies: rash Neurological: Denies: headache, weakness, numbness Past Medical History Past Medical History: Diabetes Mellitus, Hyperlipidemia, Hypertension, Thyroid Disorder Additional Past Medical History / Comment(s): "dry eyes", "in past had steroid induced gluacoma-resolved", add/adhd, anxiety, depression,"sarcoidosis", eczema, bells palsy affected rt eye,"irreg heart beat"concussion age 12 stated has some learning disablity-problems with spelling.pt stated "was told in past that an ekg had evidence of prior heart attack". pt stated "had stress test approx 6 weeks ago -they never called to tell me if there was a problem so it must have been ok" History of Any Multi-Drug Resistant Organisms: None Reported Past Surgical History: Cholecystectomy, Pacemaker Additional Past Surgical History / Comment(s): pacemaker to maintain resting heart rate, ususal for pt 45-55 Past Anesthesia/Blood Transfusion Reactions: Motion Sickness Additional Past Anesthesia/Blood Transfusion Reaction / Comment(s): clausterphoba Type of Cardiac Device: Unknown Device Placement Date:: february 2019 Past Psychological History: ADD/ADHD, Anxiety Smoking Status: Light tobacco smoker Past Alcohol Use History: None Reported Past Drug Use History: None Reported - Past Family History Mother Family Medical History: AFIB, Deep Vein Thrombosis (DVT), Osteoarthritis (OA) Father Family Medical History: Osteoarthritis (OA), Thyroid Disorder General Exam Limitations: no limitations General appearance: alert, in no apparent distress Head exam: Present: atraumatic, normocephalic Eye exam: Present: normal appearance. Absent: scleral icterus, conjunctival injection Neck exam: Present: normal inspection Respiratory exam: Present: normal lung sounds bilaterally. Absent: respiratory distress, wheezes, rales, rhonchi, stridor, chest wall tenderness, accessory muscle use, decreased breath sounds, prolonged expiratory Cardiovascular Exam: Present: regular rate, normal rhythm, normal heart sounds. Absent: systolic murmur, diastolic murmur, rubs, gallop GI/Abdominal exam: Present: soft. Absent: distended, tenderness, guarding, rebound, rigid Extremities exam: Present: normal inspection, normal capillary refill. Absent: pedal edema, calf tenderness Back exam: Present: normal inspection. Absent: CVA tenderness (R), CVA tenderness (L) Neurological exam: Present: alert Skin exam: Present: warm, dry, intact, normal color. Absent: rash Course Vital Signs 11/25/19 11/25/19 11/26/19 22:45 23:47 00:50 Temperature 98.0 F 98.2 F 98.6 F Pulse Rate 50 L 58 L 62 Respiratory 20 22 Rate Blood Pressure 200/85 174/72 165/84 O2 Sat by Pulse 99 97 98 Oximetry Medical Decision Making - Medical Decision Making This patient is 44-year-old woman with some mild dyspnea. Patient also having right knee pain. We did obtain labs here including d-dimer to rule out DVT and PE as cause patient's symptoms. The lab workup essentially negative. Patient's chest x-ray may show some early CHF, and I discussed the importance of blood pressure control with her. Offered admission to patient, which she states she would much rather follow up as outpatient. Discussed return parameters as well as the appropriate further care and follow-up. - Lab Data Result diagrams: 11/25/19 22:56 11/25/19 22:56 Lab Results 11/25/19 11/25/19 11/25/19 Range/Units 22:56 22:56 22:56 WBC 7.6 (3.8-10.6) k/uL RBC 4.41 (3.80-5.40) m/uL Hgb 13.1 (11.4-16.0) gm/dL Hct 39.7 (34.0-46.0) % MCV 90.1 (80.0-100.0) fL MCH 29.8 (25.0-35.0) pg MCHC 33.1 (31.0-37.0) g/dL RDW 14.5 (11.5-15.5) % Plt Count 193 (150-450) k/uL Neutrophils % 64 % Lymphocytes % 23 % Monocytes % 7 % Eosinophils % 3 % Basophils % 0 % Neutrophils # 4.9 (1.3-7.7) k/uL Lymphocytes # 1.8 (1.0-4.8) k/uL Monocytes # 0.5 (0-1.0) k/uL Eosinophils # 0.2 (0-0.7) k/uL Basophils # 0.0 (0-0.2) k/uL PT 9.7 (9.0-12.0) sec INR 0.9 (<1.2) APTT 21.1 L (22.0-30.0) sec D-Dimer 0.36 (<0.60) mg/L FEU Sodium 136 L (137-145) mmol/L Potassium 4.0 (3.5-5.1) mmol/L Chloride 106 (98-107) mmol/L Carbon Dioxide 22 (22-30) mmol/L Anion Gap 8 mmol/L BUN 11 (7-17) mg/dL Creatinine 0.40 L (0.52-1.04) mg/dL Est GFR (CKD-EPI)AfAm >90 (>60 ml/min/1.73 sqM) Est GFR (CKD-EPI)NonAf >90 (>60 ml/min/1.73 sqM) Glucose 180 H (74-99) mg/dL Calcium 9.4 (8.4-10.2) mg/dL Magnesium 1.6 (1.6-2.3) mg/dL Total Bilirubin 0.5 (0.2-1.3) mg/dL AST 23 (14-36) U/L ALT 12 (4-34) U/L Alkaline Phosphatase 76 (38-126) U/L Troponin I (0.000-0.034) ng/mL Total Protein 7.1 (6.3-8.2) g/dL Albumin 3.8 (3.5-5.0) g/dL 11/25/19 Range/Units 22:56 WBC (3.8-10.6) k/uL RBC (3.80-5.40) m/uL Hgb (11.4-16.0) gm/dL Hct (34.0-46.0) % MCV (80.0-100.0) fL MCH (25.0-35.0) pg MCHC (31.0-37.0) g/dL RDW (11.5-15.5) % Plt Count (150-450) k/uL Neutrophils % % Lymphocytes % % Monocytes % % Eosinophils % % Basophils % % Neutrophils # (1.3-7.7) k/uL Lymphocytes # (1.0-4.8) k/uL Monocytes # (0-1.0) k/uL Eosinophils # (0-0.7) k/uL Basophils # (0-0.2) k/uL PT (9.0-12.0) sec INR (<1.2) APTT (22.0-30.0) sec D-Dimer (<0.60) mg/L FEU Sodium (137-145) mmol/L Potassium (3.5-5.1) mmol/L Chloride (98-107) mmol/L Carbon Dioxide (22-30) mmol/L Anion Gap mmol/L BUN (7-17) mg/dL Creatinine (0.52-1.04) mg/dL Est GFR (CKD-EPI)AfAm (>60 ml/min/1.73 sqM) Est GFR (CKD-EPI)NonAf (>60 ml/min/1.73 sqM) Glucose (74-99) mg/dL Calcium (8.4-10.2) mg/dL Magnesium (1.6-2.3) mg/dL Total Bilirubin (0.2-1.3) mg/dL AST (14-36) U/L ALT (4-34) U/L Alkaline Phosphatase (38-126) U/L Troponin I 0.026 (0.000-0.034) ng/mL Total Protein (6.3-8.2) g/dL Albumin (3.5-5.0) g/dL Disposition Clinical Impression: Knee sprain, Hypertension Disposition: HOME SELF-CARE Condition: Good Instructions (If sedation given, give patient instructions): Knee Sprain (ED), Hypertension (ED) Additional Instructions: As we discussed, follow your blood pressure over the next few days and follow with her primary doctor if there is any recurrence of symptoms return to emergency department Is patient prescribed a controlled substance at d/c from ED?: No Referrals: Costa Falcon [Primary Care Provider] - 1-2 days Goodmanson,Lionel, DO [Doctor of Osteopathic Medicine] - 1-2 days
[2019-11-26 01:22] VITALS: RESP 22
[2019-11-26 01:24] VITALS: BP 165/84; PULSE 62; TEMP 98.6
== END 2019-11-26 01:30 | disposition home or self-care (01) ==
LOC: EC 22:31
DX: I11.0 Hypertensive heart disease with heart failure (principal); S83.91XA Sprain of unspecified site of right knee, initial encounter; R06.02 Shortness of breath; I50.9 Heart failure, unspecified; E78.5 Hyperlipidemia, unspecified; E11.9 Type 2 diabetes mellitus without complications; E07.9 Disorder of thyroid, unspecified; F41.9 Anxiety disorder, unspecified; F32.9 Major depressive disorder, single episode, unspecified; F17.210 Nicotine dependence, cigarettes, uncomplicated; I25.2 Old myocardial infarction; Z95.0 Presence of cardiac pacemaker; Z79.84 Long term (current) use of oral hypoglycemic drugs; Z79.890 Hormone replacement therapy; Z79.899 Other long term (current) drug therapy; Z88.8 Allergy status to other drugs, medicaments and biological substances; Z91.013 Allergy to seafood; X50.9XXA Other and unspecified overexertion or strenuous movements or postures, initial encounter
CPT/HCPCS: 36415; 71046; 80053; 83735; 84484; 85025; 85379; 85610; 85730; 93005; 99285

== ENCOUNTER → 2019-11-29 | Outpatient (CLI) | payer OTHER ==
--- NOTE | 2019-11-29 15:26 | XR ---
EXAMINATION TYPE: XR knee complete RT DATE OF EXAM: 11/29/2019 CLINICAL HISTORY: Right knee pain TECHNIQUE: Three views of the right knee are obtained. COMPARISON: None. FINDINGS: There is no acute fracture/dislocation evident in right knee. Mild to moderate narrowing p atellofemoral compartment with mild spurring. Mild narrowing medial tibiofemoral compartment. Mild sp urring lateral aspect lateral tibial femoral compartment. The overlying soft tissue appears unremarka ble. IMPRESSION: As above.
== END | disposition home or self-care (01) ==
LOC: RAD 15:09
PROVIDERS: ATTEND Family Medicine
DX: M76.891 Other specified enthesopathies of right lower limb, excluding foot (principal)

== ENCOUNTER → 2019-11-30 | Outpatient (CLI) | payer OTHER ==
[2019-11-30 14:13] LABS: African American GFR (CKD) >90 (>60 ml/min/1.73 sqM); Blood Urea Nitrogen 14 mg/dL (7-17); Non-African American GFR(CKD) >90 (>60 ml/min/1.73 sqM)
--- NOTE | 2019-11-30 16:19 | CT ---
EXAMINATION TYPE: CT chest w con DATE OF EXAM: 11/30/2019 COMPARISON: Prior chest CT March 07, 2019 and older CTs HISTORY: productive cough CT DLP: 678.3 mGycm. Automated Exposure Control for Dose Reduction was Utilized. TECHNIQUE: CT scan of the thorax is performed following with IV Contrast, patient injected with 100 mL of Isovue 300. FINDINGS: LUNGS: The lungs remain grossly clear, there is no concerning new parenchymal mass or nodule identifi ed. Stable 4 to 5 mm subpleural anterior medial right mid lung nodule image 32. There is no pleural effusion or pneumothorax seen bilaterally. The tracheobronchial tree is patent. MEDIASTINUM: Persistent cardiomegaly with dual lead pacemaker/defibrillator. No pericardial effusion . Mild coronary artery calcification LAD distribution axial image 29. More prominent bilateral hilar adenopathy with confluent lymph nodes noted bilaterally on current study. Fairly stable thoracic shannon opathy involving the prevascular space, paratracheal, and subcarinal regions. Hypoplastic or small th yroid redemonstrated. OTHER: Focal moderate anterior and right lateral spurring in the mid to lower thoracic spine. IMPRESSION: Worsening bilateral hilar adenopathy and/or perihilar consolidations. Correlate clinicall y. Differential includes infectious, inflammatory, and granulomatous processes. Stable abnormal media stinal adenopathy. Stable right midlung 5 mm nodule. No new greater than 4 mm nodules.
== END | disposition home or self-care (01) ==
LOC: RADCTMAIN 13:40
PROVIDERS: ATTEND Thoracic Surgery (Cardiothoracic Vascular Surgery)
DX: R59.0 Localized enlarged lymph nodes (principal); R91.1 Solitary pulmonary nodule
CPT/HCPCS: 82565; 84520; 71260; 36415; Q9967

== ENCOUNTER → 2019-12-06 | Outpatient (CLI) | payer OTHER ==
--- NOTE | 2019-12-06 15:23 | CT ---
EXAMINATION TYPE: CT shoulder LT wo con DATE OF EXAM: 12/06/2019 COMPARISON: CT chest 11/30/2019, chest x-ray dated 11/25/2019 HISTORY: Left shoulder pain CT DLP: 345 mGycm Automated exposure control for dose reduction was used. Helical imaging obtained through the chest. M ultiplanar reformatting performed. Three-dimensional reconstructions on an alternate workstation FINDINGS: There is no fracture or dislocation. Degenerative change present at the acromioclavicular joint. Bone mineralization is normal. There is a generator in the left pectoral region, leads are coursing via t he innominate vein centrally, leads course through the pectoralis muscle. IMPRESSION: ACROMIOCLAVICULAR JOINT ARTHROPATHY. Additional findings above.
== END | disposition home or self-care (01) ==
LOC: RADCTMAIN 13:06
PROVIDERS: ATTEND Psychiatry & Neurology Neurology
DX: M19.012 Primary osteoarthritis, left shoulder (principal)

== ENCOUNTER 2019-12-08 09:59 | Emergency (ER) | payer OTHER ==
[2019-12-08 10:11] VITALS: TEMP 97.8
[2019-12-08] MEDS ORDERED: KETOROLAC 15 MG/ML 1 ML VIAL IVP STA (11:09)
[2019-12-08] MEDS ORDERED: methylPREDNISolone SOD SUCCI 125 MG/2 ML VIAL IVP STA (11:09)
[2019-12-08] MEDS ORDERED: SODIUM CHLORIDE 0.9% 1,000 ML IV STA ×2 (11:09)
[2019-12-08] MEDS ORDERED: DIAZEPAM 5 MG/ML 2 ML INJ IVP STA (11:09)
--- NOTE | 2019-12-08 11:17 | ED ---
Back Pain HPI - General Source: patient, RN notes reviewed, old records reviewed Limitations: physical limitation <Celeste Rob - Last Filed: 12/09/19 06:52> <Ro Bejarano - Last Filed: 12/11/19 21:50> - General Chief Complaint: Back Pain/Injury Stated Complaint: Back pain Time Seen by Provider: 12/08/19 10:32 - History of Present Illness Initial Comments: Patient is a 44-year-old female who presents emergency department today for ev aluation with complaints of back pain worse with movement after she bent down to 2 days ago. She reports the pain has been unbearable she's only on a couch. She reports her husbands been putting her on a bedpan. They report they noted abnormal vaginal bleeding today. She has not had a menstrual cycle in 9 months. (Celeste Rob) - Related Data Home Medications Medication Instructions Recorded Confirmed metFORMIN HCL [Glucophage] 500 mg PO BID 11/10/17 12/08/19 Ezetimibe [Zetia] 10 mg PO HS 10/06/18 12/08/19 Dextran 70/Hypromellose [Genteal 1 drop BOTH EYES 5XD PRN 12/09/18 12/08/19 Tears 0.1%-0.3% Drop] Glatiramer Acetate [Copaxone] 40 mg SQ MOWEFR 12/09/18 12/08/19 metHOTREXate sodium [Methotrexate] 12.5 mg PO SA 12/09/18 12/08/19 Multivit with Calcium,Iron,Min 1 tab PO DAILY 02/11/19 12/08/19 [Women's Multivitamin] Levothyroxine Sodium [Synthroid] 175 mcg PO DAILY 06/23/19 12/08/19 PARoxetine HCL 30 mg PO DAILY 06/23/19 12/08/19 Halobetasol Propionate [Ultravate] 1 applic TOPICAL BID PRN 12/08/19 12/08/19 Latanoprost Ophth [Xalatan 0.005%] 1 drops BOTH EYES HS 12/08/19 12/08/19 Tobramycin 0.3% Ophth Oint [Tobrex 1 applic BOTH EYES BID 12/08/19 12/08/19 0.3% Ophth Oint] hydroCHLOROthiazide [Hydrodiuril] 12.5 mg PO DAILY 12/08/19 12/08/19 Previous Rx's Medication Instructions Recorded Apixaban [Eliquis] 5 mg PO BID #180 tab 02/15/19 carvediloL [Coreg] 3.125 mg PO BID #180 tablet 02/16/19 Allergies Allergy/AdvReac Type Severity Reaction Status Date / Time Inauoqq-Jih-Tje Reductase AdvReac FACIAL Verified 12/08/19 19:26 Inhibitor NUMBNESS SEAFOOD Allergy Rash/Hives Uncoded 12/08/19 17:43 Review of Systems ROS Other: All systems not noted in ROS Statement are negative. <Celeste Rob - Last Filed: 12/09/19 06:52> ROS Other: All systems not noted in ROS Statement are negative. <Ro Bejarano - Last Filed: 12/11/19 21:50> ROS Statement: Those systems with pertinent positive or pertinent negative responses have been documented in the HPI. Past Medical History Past Medical History: Diabetes Mellitus, Hyperlipidemia, Hypertension, Thyroid Disorder Additional Past Medical History / Comment(s): "dry eyes", "in past had steroid induced gluacoma-resolved", add/adhd, anxiety, depression,"sarcoidosis", eczema, bells palsy affected rt eye,"irreg heart beat"concussion age 12 stated has some learning disablity-problems with spelling.pt stated "was told in past that an ekg had evidence of prior heart attack". pt stated "had stress test approx 6 weeks ago -they never called to tell me if there was a problem so it must have been ok" History of Any Multi-Drug Resistant Organisms: None Reported Past Surgical History: Cholecystectomy, Pacemaker Additional Past Surgical History / Comment(s): pacemaker to maintain resting heart rate, ususal for pt 45-55 Past Anesthesia/Blood Transfusion Reactions: Motion Sickness Additional Past Anesthesia/Blood Transfusion Reaction / Comment(s): clausterphoba Type of Cardiac Device: Unknown Device Placement Date:: february 2019 Past Psychological History: ADD/ADHD, Anxiety Smoking Status: Never smoker Past Alcohol Use History: None Reported Past Drug Use History: None Reported - Past Family History Mother Family Medical History: AFIB, Deep Vein Thrombosis (DVT), Osteoarthritis (OA) Father Family Medical History: Osteoarthritis (OA), Thyroid Disorder <Celeste Rob - Last Filed: 12/09/19 06:52> General Exam Limitations: physical limitation General appearance: alert, in no apparent distress Head exam: Present: atraumatic, normocephalic, normal inspection Eye exam: Present: normal appearance, PERRL, EOMI. Absent: scleral icterus, conjunctival injection, periorbital swelling ENT exam: Present: normal exam Neck exam: Present: normal inspection. Absent: tenderness, meningismus, lymphadenopathy Respiratory exam: Present: normal lung sounds bilaterally. Absent: respiratory distress, wheezes, rales, rhonchi, stridor Cardiovascular Exam: Present: regular rate, normal rhythm, normal heart sounds. Absent: systolic murmur, diastolic murmur, rubs, gallop, clicks GI/Abdominal exam: Present: soft, normal bowel sounds. Absent: distended, tenderness, guarding, rebound, rigid Extremities exam: Present: normal inspection, full ROM, normal capillary refill. Absent: tenderness, pedal edema, joint swelling, calf tenderness Back exam: Present: normal inspection Neurological exam: Present: alert Psychiatric exam: Present: normal affect, normal mood Skin exam: Present: warm, dry, intact, normal color. Absent: rash <Celeste Rob - Last Filed: 12/09/19 06:52> - General Exam Comments Initial Comments: 44-year-old female. No distress. (Celeste Rob) Course Vital Signs 12/08/19 12/08/19 10:06 13:49 Temperature 97.8 F Pulse Rate 50 L 60 Respiratory 18 12 Rate Blood Pressure 159/92 159/87 O2 Sat by Pulse 100 Oximetry Medical Decision Making - Lab Data Result diagrams: 12/08/19 11:23 12/08/19 11:23 - Radiology Data Radiology results: report reviewed <Celeste Rob - Last Filed: 12/09/19 06:52> - Lab Data Result diagrams: 12/08/19 11:23 12/08/19 11:23 <Ro Bejarano - Last Filed: 12/11/19 21:50> - Medical Decision Making 44 year old female, presents today for CC of with vaginal bleeding today as well as back pain after bending down this week. Patient was concerned that her vaginal bleeding and back pain, and related to ovarian cyst rupture. She's had in the past. This time patient's labwork was reviewed and unremarkable. Patient's ultrasound was reviewed and shows no evidence of pelvic free fluid. Discussed patient's back pain since was within mechanical no fall or trauma, no suspicion for any back fracture. Discussed following up with primary care doctor. (Celeste Rob) I was available for consultation in the emergency department. The history and physical exam were done by the midlevel provider. I was consulted for this patients care. I reviewed the case with the midlevel provider and based on their presentation of the patient, I agree with the assessment, medical decision making and plan of care as documented. Chart was dictated using [employer] dictation software. Attempts were made to correct any dictation errors however some typographical errors may persist. Patient was seen during a national state of emergency due to the Covid-19 juve ortiz. (Ro Bejarano) - Lab Data Lab Results 12/08/19 12/08/19 12/08/19 Range/Units 11:23 11:23 11:23 WBC 6.5 (3.8-10.6) k/uL RBC 4.96 (3.80-5.40) m/uL Hgb 14.5 (11.4-16.0) gm/dL Hct 44.7 (34.0-46.0) % MCV 90.1 (80.0-100.0) fL MCH 29.3 (25.0-35.0) pg MCHC 32.6 (31.0-37.0) g/dL RDW 14.0 (11.5-15.5) % Plt Count 198 (150-450) k/uL Neutrophils % 71 % Lymphocytes % 18 % Monocytes % 5 % Eosinophils % 3 % Basophils % 1 % Neutrophils # 4.6 (1.3-7.7) k/uL Lymphocytes # 1.2 (1.0-4.8) k/uL Monocytes # 0.3 (0-1.0) k/uL Eosinophils # 0.2 (0-0.7) k/uL Basophils # 0.0 (0-0.2) k/uL Sodium 140 (137-145) mmol/L Potassium 4.1 (3.5-5.1) mmol/L Chloride 107 (98-107) mmol/L Carbon Dioxide 26 (22-30) mmol/L Anion Gap 7 mmol/L BUN 16 (7-17) mg/dL Creatinine 0.53 (0.52-1.04) mg/dL Est GFR (CKD-EPI)AfAm >90 (>60 ml/min/1.73 sqM) Est GFR (CKD-EPI)NonAf >90 (>60 ml/min/1.73 sqM) Glucose 127 H (74-99) mg/dL Plasma Lactic Acid Raji 1.4 (0.7-2.0) mmol/L Calcium 9.1 (8.4-10.2) mg/dL Total Bilirubin 0.6 (0.2-1.3) mg/dL AST 22 (14-36) U/L ALT 14 (4-34) U/L Alkaline Phosphatase 78 (38-126) U/L Total Protein 7.4 (6.3-8.2) g/dL Albumin 3.9 (3.5-5.0) g/dL Lipase 110 (23-300) U/L HCG, Qual 12/08/19 Range/Units 11:23 WBC (3.8-10.6) k/uL RBC (3.80-5.40) m/uL Hgb (11.4-16.0) gm/dL Hct (34.0-46.0) % MCV (80.0-100.0) fL MCH (25.0-35.0) pg MCHC (31.0-37.0) g/dL RDW (11.5-15.5) % Plt Count (150-450) k/uL Neutrophils % % Lymphocytes % % Monocytes % % Eosinophils % % Basophils % % Neutrophils # (1.3-7.7) k/uL Lymphocytes # (1.0-4.8) k/uL Monocytes # (0-1.0) k/uL Eosinophils # (0-0.7) k/uL Basophils # (0-0.2) k/uL Sodium (137-145) mmol/L Potassium (3.5-5.1) mmol/L Chloride (98-107) mmol/L Carbon Dioxide (22-30) mmol/L Anion Gap mmol/L BUN (7-17) mg/dL Creatinine (0.52-1.04) mg/dL Est GFR (CKD-EPI)AfAm (>60 ml/min/1.73 sqM) Est GFR (CKD-EPI)NonAf (>60 ml/min/1.73 sqM) Glucose (74-99) mg/dL Plasma Lactic Acid Raji (0.7-2.0) mmol/L Calcium (8.4-10.2) mg/dL Total Bilirubin (0.2-1.3) mg/dL AST (14-36) U/L ALT (4-34) U/L Alkaline Phosphatase (38-126) U/L Total Protein (6.3-8.2) g/dL Albumin (3.5-5.0) g/dL Lipase (23-300) U/L HCG, Qual Not Detected - Radiology Data Endometrial stripe measuring 7 mm. Small fluid in the lower uterine segment represent hemorrhagic fluid. Follow-up in 6-8 weeks. No sonographic evidence for ovarian torsion. No pelvic free fluid. (Celeste Rob) Disposition Is patient prescribed a controlled substance at d/c from ED?: No Time of Disposition: 13:19 <Celeste Rob - Last Filed: 12/09/19 06:52> <Ro Bejarano - Last Filed: 12/11/19 21:50> Clinical Impression: Mechanical back pain, Abnormal uterine bleeding Disposition: HOME SELF-CARE Condition: Good Instructions (If sedation given, give patient instructions): Acute Low Back Pain (ED) Additional Instructions: Patient has a follow-up with her primary care physician and neurologist. Return to emergency department if any alarming signs or symptoms occur. Referrals: Costa Falcon [Primary Care Provider] - 1-2 days
[2019-12-08 11:43] LABS: Basophils % (A) 1 %; Eosinophils # (A) 0.2 k/uL (0-0.7); Eosinophils % (A) 3 %; HCT 44.7 % (34.0-46.0); HGB 14.5 gm/dL (11.4-16.0); Lymphocytes # (A) 1.2 k/uL (1.0-4.8); Lymphocytes % (A) 18 %; MCH 29.3 pg (25.0-35.0); MCHC 32.6 g/dL (31.0-37.0); MCV 90.1 fL (80.0-100.0); Mean Platelet Volume 8.7; Monocytes # (A) 0.3 k/uL (0-1.0); Monocytes % (A) 5 %; Neutrophils # (A) 4.6 k/uL (1.3-7.7); Neutrophils % (A) 71 %; Platelet Count 198 k/uL (150-450); RBC 4.96 m/uL (3.80-5.40); WBC 6.5 k/uL (3.8-10.6)
[2019-12-08 11:49] LABS: ALT 14 U/L (4-34); AST 22 U/L (14-36); African American GFR (CKD) >90 (>60 ml/min/1.73 sqM); Albumin 3.9 g/dL (3.5-5.0); Alkaline Phosphatase 78 U/L (38-126); Anion Gap 7 mmol/L; Blood Urea Nitrogen 16 mg/dL (7-17); Calcium 9.1 mg/dL (8.4-10.2); Carbon Dioxide 26 mmol/L (22-30); Chloride 107 mmol/L (98-107); Glucose 127 mg/dL (74-99); Lipase 110 U/L (23-300); Non-African American GFR(CKD) >90 (>60 ml/min/1.73 sqM); Potassium 4.1 mmol/L (3.5-5.1); Sodium 140 mmol/L (137-145); Total Bilirubin 0.6 mg/dL (0.2-1.3); Total Protein 7.4 g/dL (6.3-8.2)
--- NOTE | 2019-12-08 12:22 | US ---
EXAMINATION TYPE: US transvaginal plus Dopplers DATE OF EXAM: 12/08/2019 COMPARISON: 06/23/2019 CLINICAL HISTORY: 44-year-old female abnormal bleeding, right abdominal pain, hx cyst. Patient states she hasn't had a cycle since February 2019. Bleeding TECHNIQUE: Transvaginal sonographic images of the pelvis were acquired. Color Doppler and spectral w aveform analysis of the ovarian arteries and veins. Date of LMP: February 2019 FINDINGS: EXAM MEASUREMENTS: Uterus: 8.0 x 4.1 x 4.6 cm Endometrial Stripe: 0.7 cm Right Ovary: 2.5 x 1.9 x 2.0 cm Left Ovary: 2.1 x 1.6 x 1.8 cm 1. Uterus: Anteverted and otherwise within normal limits. Small amount of 3 mm fluid along the lower uterine segment. Small 7 mm cervical nabothian cyst. 2. Endometrium: wnl 3. Right Ovary: wnl 4. Left Ovary: wnl Spectral, color and waveform doppler imaging shows good arterial and venous flow within the ovaries ; there is no evidence for ovarian torsion. 5. Bilateral Adnexa: wnl 6. Posterior cul-de-sac: wnl IMPRESSION: 1. Endometrial stripe measuring 7 mm. There is a small fluid along the lower uterine segment that cou ld represent some hemorrhagic fluid. Follow-up in 6-8 weeks to reassess. 2. No sonographic evidence for ovarian torsion. 3. No pelvic free fluid.
[2019-12-08 13:50] VITALS: BP 159/87; PULSE 60; RESP 12
== END 2019-12-08 13:57 | disposition home or self-care (01) ==
LOC: EC 09:59
DX: N93.9 Abnormal uterine and vaginal bleeding, unspecified (principal); M54.9 Dorsalgia, unspecified; E11.9 Type 2 diabetes mellitus without complications; E78.5 Hyperlipidemia, unspecified; I10 Essential (primary) hypertension; E07.9 Disorder of thyroid, unspecified; F41.9 Anxiety disorder, unspecified; F32.9 Major depressive disorder, single episode, unspecified; Z79.84 Long term (current) use of oral hypoglycemic drugs; Z79.899 Other long term (current) drug therapy; Z79.890 Hormone replacement therapy; Z88.8 Allergy status to other drugs, medicaments and biological substances; Z91.013 Allergy to seafood; Z95.0 Presence of cardiac pacemaker
CPT/HCPCS: 36415; 80053; 83605; 83690; 85025; 84703; 93975; 76830; 99284; 96374; 96375 ×2; 96361 ×2; J2930; J3360; J1885

== ENCOUNTER 2019-12-08 17:12 | Emergency (ER) | payer OTHER ==
[2019-12-08] MEDS ORDERED: HYDROcodone/APAP 7.5-325MG 1 EACH TAB PO ONE (18:11)
[2019-12-08 18:37] LABS: Glucose,Whole Blood 332 mg/dL (75-99)
[2019-12-08] MEDS ORDERED: PARoxetine 10 MG TAB PO STA (19:15)
--- NOTE | 2019-12-08 19:33 | CT ---
EXAMINATION TYPE: CT abdomen pelvis w con DATE OF EXAM: 12/08/2019 COMPARISON: 11/22/2009 HISTORY: abdomen pain CT DLP: 4088 mGycm Automated exposure control for dose reduction was used. CONTRAST: Performed with IV Contrast, patient injected with 100 mL of Isovue 300. Lung bases are clear. There is no pleural effusion. Heart is enlarged. There is no pericardial effusi on. There are 2 rounded 1.5 cm hypodensities in the superior spleen. Liver shows no focal defect. The amauri e ducts are not dilated. There is no pancreatic mass. Gallbladder appears normal. Stomach is intact. There is no adrenal mass. Kidneys show satisfactory contrast opacification. There is no hydronephrosi s. There is no retroperitoneal adenopathy. Bladder distends smoothly. There is no inguinal hernia. Ut erus is anteverted. There is no free fluid in the pelvis. There are clips from appendectomy. There is no mesenteric edema. There is no ascites or free air. There is no bowel obstruction. There a re sigmoid diverticula. There is no sign of diverticulitis. Lumbar spine is intact. There is no compression fracture. The bony pelvis is intact. Hip joints are i ntact. IMPRESSION: Sigmoid diverticulosis without diverticulitis. 2 rounded hypodensities in the superior spleen are pro bably cysts. There is cardiomegaly which is a change compared to old exam.
--- NOTE | 2019-12-08 19:35 | CT ---
EXAMINATION TYPE: CT lumbar spine wo/w con DATE OF EXAM: 12/08/2019 COMPARISON: HISTORY: Lumbar pain concerned about cyst CT DLP: 4079 mGycm Automated exposure control for dose reduction was used. CONTRAST: Performed with IV Contrast, patient injected with mL of Isovue 300. Images were obtained from the level of T12-S2 vertebra with no contrast. Lumbar vertebra have fairly normal spacing and alignment. Posterior elements are intact. There is spu rring of the endplates. There is no lumbar compression fracture. Facet joints are intact. There is no evidence of spinal stenosis. There is no lumbar paraspinal mass. Visualized sacrum appears intact. S acroiliac joints appear intact. IMPRESSION: Mild degenerative spurring. No significant disc space narrowing. No fracture. No spinal stenosis.
--- NOTE | 2019-12-08 20:01 | ED ---
Back Pain HPI - General Chief Complaint: Back Pain/Injury Stated Complaint: back pain Time Seen by Provider: 12/08/19 17:53 Source: patient Limitations: no limitations - History of Present Illness Initial Comments: Patient is a 44-year-old female presenting to the emergency department with a chief complaint of back pain. Patient states several days ago she bent over to grab something from the bottom shelf when she "threw out her back". Patient states that she was evaluated to emergency department this morning for back pain but also had some vaginal bleeding is well. Patient states after she received an ultrasound in her back pain was controlled she was discharged. Patient states she went to 's office where she has her back pain control and is currently undergoing testing for MS. Patient states while she was there, she was given Decadron and prescribed [place] to start taking tomorrow. Patient states they also advised her to immediately have CT with and without contrast of the lumbar spine, and abdomen pelvis CT with contrast. Patient states she went to outpatient CT but it was closed so she was advised to come to the emergency department in order to get the scans done. Patient states her lumbar pain is getting worse with ambulation. She denies any saddle anesthesia, urinary retention with urinary incontinence or bowel incontinence. 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 - Related Data Home Medications Medication Instructions Recorded Confirmed metFORMIN HCL [Glucophage] 500 mg PO BID 11/10/17 12/08/19 Ezetimibe [Zetia] 10 mg PO HS 10/06/18 12/08/19 Dextran 70/Hypromellose [Genteal 1 drop BOTH EYES 5XD PRN 12/09/18 12/08/19 Tears 0.1%-0.3% Drop] Glatiramer Acetate [Copaxone] 40 mg SQ MOWEFR 12/09/18 12/08/19 metHOTREXate sodium [Methotrexate] 12.5 mg PO SA 12/09/18 12/08/19 Multivit with Calcium,Iron,Min 1 tab PO DAILY 02/11/19 12/08/19 [Women's Multivitamin] Levothyroxine Sodium [Synthroid] 175 mcg PO DAILY 06/23/19 12/08/19 PARoxetine HCL 30 mg PO DAILY 06/23/19 12/08/19 Halobetasol Propionate [Ultravate] 1 applic TOPICAL BID PRN 12/08/19 12/08/19 Latanoprost Ophth [Xalatan 0.005%] 1 drops BOTH EYES HS 12/08/19 12/08/19 Tobramycin 0.3% Ophth Oint [Tobrex 1 applic BOTH EYES BID 12/08/19 12/08/19 0.3% Ophth Oint] hydroCHLOROthiazide [Hydrodiuril] 12.5 mg PO DAILY 12/08/19 12/08/19 Previous Rx's Medication Instructions Recorded Apixaban [Eliquis] 5 mg PO BID #180 tab 02/15/19 carvediloL [Coreg] 3.125 mg PO BID #180 tablet 02/16/19 Allergies Allergy/AdvReac Type Severity Reaction Status Date / Time Grcnqcx-Qmf-Xzm Reductase AdvReac FACIAL Verified 12/08/19 19:26 Inhibitor NUMBNESS SEAFOOD Allergy Rash/Hives Uncoded 12/08/19 17:43 Review of Systems ROS Statement: Those systems with pertinent positive or pertinent negative responses have been documented in the HPI. ROS Other: All systems not noted in ROS Statement are negative. Past Medical History Past Medical History: Diabetes Mellitus, Hyperlipidemia, Hypertension, Thyroid Disorder Additional Past Medical History / Comment(s): "dry eyes", "in past had steroid induced gluacoma-resolved", add/adhd, anxiety, depression,"sarcoidosis", eczema, bells palsy affected rt eye,"irreg heart beat"concussion age 12 stated has some learning disablity-problems with spelling.pt stated "was told in past that an ekg had evidence of prior heart attack". pt stated "had stress test approx 6 weeks ago -they never called to tell me if there was a problem so it must have been ok" History of Any Multi-Drug Resistant Organisms: None Reported Past Surgical History: Cholecystectomy, Pacemaker Additional Past Surgical History / Comment(s): pacemaker to maintain resting heart rate, ususal for pt 45-55 Past Anesthesia/Blood Transfusion Reactions: Motion Sickness Additional Past Anesthesia/Blood Transfusion Reaction / Comment(s): clausterphoba Type of Cardiac Device: Unknown Device Placement Date:: february 2019 Past Psychological History: ADD/ADHD, Anxiety Smoking Status: Never smoker Past Alcohol Use History: None Reported Past Drug Use History: None Reported - Past Family History Mother Family Medical History: AFIB, Deep Vein Thrombosis (DVT), Osteoarthritis (OA) Father Family Medical History: Osteoarthritis (OA), Thyroid Disorder General Exam Limitations: no limitations General appearance: alert, in no apparent distress, obese Head exam: Present: atraumatic, normocephalic, normal inspection Eye exam: Present: normal appearance, PERRL, EOMI Pupils: Present: normal accommodation ENT exam: Present: normal exam, normal oropharynx, mucous membranes moist, TM's normal bilaterally, normal external ear exam Neck exam: Present: normal inspection, full ROM. Absent: tenderness, lymphadenopathy Respiratory exam: Present: normal lung sounds bilaterally. Absent: respiratory distress, wheezes, rales Cardiovascular Exam: Present: regular rate, normal rhythm, normal heart sounds GI/Abdominal exam: Present: soft. Absent: distended, tenderness, guarding Extremities exam: Present: normal inspection, full ROM, normal capillary refill. Absent: tenderness Back exam: Present: normal inspection, full ROM, tenderness, paraspinal tenderness, vertebral tenderness (Lumbosacral tenderness with some radiation along the left lower extremity) Neurological exam: Present: alert, oriented X3 Psychiatric exam: Present: normal affect, normal mood Skin exam: Present: warm, dry, intact, normal color Course Vital Signs 12/08/19 12/08/19 17:40 19:57 Temperature 98.3 F Pulse Rate 50 L Respiratory 16 16 Rate Blood Pressure 141/68 O2 Sat by Pulse 97 Oximetry Medical Decision Making - Medical Decision Making Patient is a 44-year-old female presenting to the emergency department with chief complaint of back pain. This is acute on chronic back pain. After she was discharged is morning from the ED, she went to 's office for evaluation. Patient had an order to obtain CT images which she could not do an outpatient setting so she was advised to come to the emergency department to have an performed. Patient did request some symptomatic relief. Gave the patient some 7.5 mg Roberts[place]. She also requested Paxil because she did not take it today. CT abdomen and pelvis with contrast reveals sigmoid diverticulosis but no diverticulitis. CT of the lumbar spine with and without contrast is unremarkable. No cauda equina. Patient advised to follow-up with Dr Woodruff. Case discussed with physician - Lab Data Lab Results 12/08/19 Range/Units 18:34 POC Glucose (mg/dL) 332 H (75-99) mg/dL POC Glu [employer] Developer ID [employer] Disposition Clinical Impression: Strain of lumbar region, Mechanical back pain Disposition: HOME SELF-CARE Condition: Stable Instructions (If sedation given, give patient instructions): Acute Low Back Pain (ED) Additional Instructions: Follow-up with your neurologist. Return to emergency department if symptoms worsen. Is patient prescribed a controlled substance at d/c from ED?: No Referrals: Costa Falcon [Primary Care Provider] - 1-2 days Time of Disposition: 20:01
[2019-12-08 20:35] VITALS: BP 147/72; PULSE 62; RESP 18; TEMP 97.9
== END 2019-12-08 20:25 | disposition home or self-care (01) ==
LOC: EC 17:12
DX: S39.012A Strain of muscle, fascia and tendon of lower back, initial encounter (principal); E11.9 Type 2 diabetes mellitus without complications; I10 Essential (primary) hypertension; E78.5 Hyperlipidemia, unspecified; E07.9 Disorder of thyroid, unspecified; F41.9 Anxiety disorder, unspecified; F32.9 Major depressive disorder, single episode, unspecified; Z79.890 Hormone replacement therapy; Z79.899 Other long term (current) drug therapy; Z79.84 Long term (current) use of oral hypoglycemic drugs; Z88.8 Allergy status to other drugs, medicaments and biological substances; Z91.013 Allergy to seafood; Z95.0 Presence of cardiac pacemaker; X58.XXXA Exposure to other specified factors, initial encounter
CPT/HCPCS: 36415; 72133; 74177; 99284; Q9967; 76830; 80053; 83605; 83690; 84703; 85025; 93975; 96361; 96374; 96375

== ENCOUNTER 2020-01-06 22:16 | Observation (INO) | payer OTHER ==
[2020-01-06] MEDS ORDERED: SODIUM CHLORIDE 0.9% 500 ML 500 ML IV STA (23:13)
[2020-01-06] MEDS ORDERED: ONDANSETRON 4 MG/2 ML VIAL IVP STA (23:14)
[2020-01-06 23:51] LABS: ALT 18 U/L (4-34); African American GFR (CKD) >90 (>60 ml/min/1.73 sqM); Albumin 3.5 g/dL (3.5-5.0); Anion Gap 6 mmol/L; Blood Urea Nitrogen 13 mg/dL (7-17); Calcium 9.2 mg/dL (8.4-10.2); Carbon Dioxide 26 mmol/L (22-30); Chloride 106 mmol/L (98-107); Glucose 141 mg/dL (74-99); Lipase 111 U/L (23-300); Non-African American GFR(CKD) >90 (>60 ml/min/1.73 sqM); Sodium 138 mmol/L (137-145); Total Bilirubin 0.5 mg/dL (0.2-1.3); Total Protein 6.8 g/dL (6.3-8.2)
--- NOTE | 2020-01-06 23:54 | XR ---
EXAMINATION TYPE: XR chest 2V DATE OF EXAM: 01/06/2020 COMPARISON: 11/25/2019 HISTORY: Chest pain TECHNIQUE: FINDINGS: Heart appears enlarged. There is no gross heart failure. There is slight increased intersti tial markings in the lower lung german. There is left axillary pacemaker. There is no pleural effusio n. Bony thorax is intact. IMPRESSION: Mild increased interstitial density is improved compared to old exam. No obvious heart fa ilure.
[2020-01-06 23:56] LABS: Prothrombin Time 10.1 sec (9.0-12.0)
--- NOTE | 2020-01-06 23:57 | ED ---
Nausea/Vomiting/Diarrhea HPI - General Chief complaint: Nausea/Vomiting/Diarrhea Stated complaint: Allergic Reaction Time Seen by Provider: 01/06/20 22:20 Source: patient Mode of arrival: ambulatory Limitations: no limitations - History of Present Illness Initial comments: 44-year-old female patient presents to the emergency department today for evaluation of chest pain, vomiting, diarrhea with incontinence. Patient states that she took a dose of her glatiramer injection for MS. States that approximately 2-5 minutes later she had sudden onset chest pain, abdominal cramping, and heaviness in her legs. States the pain in her chest went straight through to her back. States that her legs felt like cement and she could not move them. She states that she was having intense sweating and started vomiting as well. She reports loss of bowel control during the episode. Patient states she's been taking this medication since March and has never had this type of reaction from it before. States she does have a history of heart failure and does have a pacemaker defibrillator. Patient denies any recent rash, fever, chills, cough, numbness, tingling, hematuria, dysuria, urinary urgency, urinary frequency, headache, visual changes, or any other complaints. - Related Data Home Medications Medication Instructions Recorded Confirmed metFORMIN HCL [Glucophage] 500 mg PO BID 11/10/17 12/08/19 Ezetimibe [Zetia] 10 mg PO HS 10/06/18 12/08/19 Dextran 70/Hypromellose [Genteal 1 drop BOTH EYES 5XD PRN 12/09/18 12/08/19 Tears 0.1%-0.3% Drop] Glatiramer Acetate [Copaxone] 40 mg SQ MOWEFR 12/09/18 12/08/19 metHOTREXate sodium [Methotrexate] 12.5 mg PO SA 12/09/18 12/08/19 Multivit with Calcium,Iron,Min 1 tab PO DAILY 02/11/19 12/08/19 [Women's Multivitamin] Levothyroxine Sodium [Synthroid] 175 mcg PO DAILY 06/23/19 12/08/19 PARoxetine HCL 30 mg PO DAILY 06/23/19 12/08/19 Halobetasol Propionate [Ultravate] 1 applic TOPICAL BID PRN 12/08/19 12/08/19 Latanoprost Ophth [Xalatan 0.005%] 1 drops BOTH EYES HS 12/08/19 12/08/19 Tobramycin 0.3% Ophth Oint [Tobrex 1 applic BOTH EYES BID 12/08/19 12/08/19 0.3% Ophth Oint] hydroCHLOROthiazide [Hydrodiuril] 12.5 mg PO DAILY 12/08/19 12/08/19 Previous Rx's Medication Instructions Recorded Apixaban [Eliquis] 5 mg PO BID #180 tab 02/15/19 carvediloL [Coreg] 3.125 mg PO BID #180 tablet 02/16/19 Allergies Allergy/AdvReac Type Severity Reaction Status Date / Time Kchbymz-Wsv-Uyh Reductase AdvReac FACIAL Verified 01/06/20 22:34 Inhibitor NUMBNESS SEAFOOD Allergy Rash/Hives Uncoded 01/06/20 22:34 Review of Systems ROS Statement: Those systems with pertinent positive or pertinent negative responses have been documented in the HPI. ROS Other: All systems not noted in ROS Statement are negative. Past Medical History Past Medical History: Diabetes Mellitus, Hyperlipidemia, Hypertension, Thyroid Disorder Additional Past Medical History / Comment(s): "dry eyes", "in past had steroid induced gluacoma-resolved", add/adhd, anxiety, depression,"sarcoidosis", eczema, bells palsy affected rt eye,"irreg heart beat"concussion age 12 stated has some learning disablity-problems with spelling.pt stated "was told in past that an ekg had evidence of prior heart attack". pt stated "had stress test approx 6 weeks ago -they never called to tell me if there was a problem so it must have been ok" History of Any Multi-Drug Resistant Organisms: None Reported Past Surgical History: Cholecystectomy, Pacemaker Additional Past Surgical History / Comment(s): pacemaker to maintain resting heart rate, ususal for pt 45-55 Past Anesthesia/Blood Transfusion Reactions: Motion Sickness Additional Past Anesthesia/Blood Transfusion Reaction / Comment(s): clausterphoba Type of Cardiac Device: Unknown Device Placement Date:: february 2019 Past Psychological History: ADD/ADHD, Anxiety Smoking Status: Never smoker Past Alcohol Use History: None Reported Past Drug Use History: None Reported - Past Family History Mother Family Medical History: AFIB, Deep Vein Thrombosis (DVT), Osteoarthritis (OA) Father Family Medical History: Osteoarthritis (OA), Thyroid Disorder General Exam Limitations: no limitations General appearance: alert, in no apparent distress, other (This is a well- developed, well-nourished adult female patient in no acute distress. Vital signs upon presentation temperature 98.9F, pulse 55, respirations 20, blood pressure 177/126, pulse ox 97% on room air.) Eye exam: Present: normal appearance, PERRL, EOMI. Absent: scleral icterus, conjunctival injection, periorbital swelling ENT exam: Present: normal exam, normal oropharynx, mucous membranes moist Respiratory exam: Present: normal lung sounds bilaterally. Absent: respiratory distress, wheezes, rales, rhonchi, stridor Cardiovascular Exam: Present: normal rhythm, bradycardia, normal heart sounds. Absent: systolic murmur, diastolic murmur, rubs, gallop, clicks GI/Abdominal exam: Present: soft, normal bowel sounds. Absent: distended, tenderness, guarding, rebound, rigid Neurological exam: Present: alert, oriented X3, CN II-XII intact Psychiatric exam: Present: normal affect, normal mood Skin exam: Present: warm, dry, intact, normal color. Absent: rash Course Vital Signs 01/06/20 01/06/20 01/07/20 22:30 23:36 00:40 Temperature 98.9 F Pulse Rate 55 L 58 L 56 L Respiratory 20 20 18 Rate Blood Pressure 177/126 174/83 143/66 O2 Sat by Pulse 97 97 99 Oximetry Medical Decision Making - Medical Decision Making 44-year-old female patient presents to the emergency department today for evaluation after having an episode of sudden onset chest pain radiating through to her back. She reports associated sweating, nausea, vomiting, and incontinence of stool. Physical examination was unremarkable. Lungs are clear to auscultation with good air movement. Initial troponin is 0.023. Remainder of labs are relatively unremarkable. Chest x-ray showed no acute Neo pulmonary process. Did perform CT angiography of the chest, abd, pelvis which showed no evidence of dissection or aneurysm. She did have enlarged lymph nodes consistent with her sarcoidosis. We'll perform serial troponins and consult cardiology. Patient is agreeable with this plan. - Lab Data Result diagrams: 01/06/20 23:55 01/06/20 23:26 Lab Results 01/06/20 01/06/20 01/06/20 Range/Units 23:26 23:26 23:26 WBC (3.8-10.6) k/uL RBC (3.80-5.40) m/uL Hgb (11.4-16.0) gm/dL Hct (34.0-46.0) % MCV (80.0-100.0) fL MCH (25.0-35.0) pg MCHC (31.0-37.0) g/dL RDW (11.5-15.5) % Plt Count (150-450) k/uL MPV Neutrophils % % Lymphocytes % % Monocytes % % Eosinophils % % Basophils % % Neutrophils # (1.3-7.7) k/uL Lymphocytes # (1.0-4.8) k/uL Monocytes # (0-1.0) k/uL Eosinophils # (0-0.7) k/uL Basophils # (0-0.2) k/uL PT 10.1 (9.0-12.0) sec INR 1.0 (<1.2) APTT 18.0 L (22.0-30.0) sec Sodium 138 (137-145) mmol/L Potassium 4.4 (3.5-5.1) mmol/L Chloride 106 (98-107) mmol/L Carbon Dioxide 26 (22-30) mmol/L Anion Gap 6 mmol/L BUN 13 (7-17) mg/dL Creatinine 0.61 (0.52-1.04) mg/dL Est GFR (CKD-EPI)AfAm >90 (>60 ml/min/1.73 sqM) Est GFR (CKD-EPI)NonAf >90 (>60 ml/min/1.73 sqM) Glucose 141 H (74-99) mg/dL Calcium 9.2 (8.4-10.2) mg/dL Magnesium 1.6 (1.6-2.3) mg/dL Total Bilirubin 0.5 (0.2-1.3) mg/dL AST 40 H (14-36) U/L ALT 18 (4-34) U/L Alkaline Phosphatase 66 (38-126) U/L Troponin I 0.023 (0.000-0.034) ng/mL Total Protein 6.8 (6.3-8.2) g/dL Albumin 3.5 (3.5-5.0) g/dL Lipase 111 (23-300) U/L 01/06/20 Range/Units 23:55 WBC 11.9 H (3.8-10.6) k/uL RBC 4.94 (3.80-5.40) m/uL Hgb 14.3 (11.4-16.0) gm/dL Hct 43.5 (34.0-46.0) % MCV 88.2 (80.0-100.0) fL MCH 29.0 (25.0-35.0) pg MCHC 32.9 (31.0-37.0) g/dL RDW 14.3 (11.5-15.5) % Plt Count 199 (150-450) k/uL MPV 9.2 Neutrophils % 90 % Lymphocytes % 5 % Monocytes % 4 % Eosinophils % 1 % Basophils % 0 % Neutrophils # 10.7 H (1.3-7.7) k/uL Lymphocytes # 0.5 L (1.0-4.8) k/uL Monocytes # 0.5 (0-1.0) k/uL Eosinophils # 0.1 (0-0.7) k/uL Basophils # 0.0 (0-0.2) k/uL PT (9.0-12.0) sec INR (<1.2) APTT (22.0-30.0) sec Sodium (137-145) mmol/L Potassium (3.5-5.1) mmol/L Chloride (98-107) mmol/L Carbon Dioxide (22-30) mmol/L Anion Gap mmol/L BUN (7-17) mg/dL Creatinine (0.52-1.04) mg/dL Est GFR (CKD-EPI)AfAm (>60 ml/min/1.73 sqM) Est GFR (CKD-EPI)NonAf (>60 ml/min/1.73 sqM) Glucose (74-99) mg/dL Calcium (8.4-10.2) mg/dL Magnesium (1.6-2.3) mg/dL Total Bilirubin (0.2-1.3) mg/dL AST (14-36) U/L ALT (4-34) U/L Alkaline Phosphatase (38-126) U/L Troponin I (0.000-0.034) ng/mL Total Protein (6.3-8.2) g/dL Albumin (3.5-5.0) g/dL Lipase (23-300) U/L - EKG Data -: EKG Interpreted by Me EKG Comments: EKG obtained at 2249 shows AV dual paced rhythm with prolonged AV conduction. Ventricular rate is 50, DC interval 358, QR holiness 188, QT 04/13/1946, QTc 497. - Radiology Data Radiology results: report reviewed, image reviewed Two-view x-ray of the chest is obtained. Report was reviewed in its entirety. Impression by Dr. Lay shows mild increased interstitial densities improved compared to old exam. No obvious heart failure. CT thoracic, abdominal, pelvic aorta was obtained. Report is reviewed in its entirety. Impression by Dr. Lay shows no evidence of aortic aneurysm or dissection. No evidence of hemodynamic stenosis. No evidence of pulmonary embolism. There is mediastinal bronchial lymphadenopathy. There are some nodular peripheral pulmonary infiltrates. There is abdominal lymphadenopathy. Consider lymphoma or sarcoidosis. Abdominal lymphadenopathy in retrospect is present on the old computed tomography scan of 12/08/2019 and her significantly different. Borderline Cardiomegaly. Borderline splenomegaly. Spleen which is 13.5 cm. Hypodense foci in the spleen unchanged compared to 12/08/2019 and probably not cysts. Pulmonary infiltrates increased compared to old chest computed tomography scan 11/30/2019 minutes at a lymphadenopathy unchanged. Disposition Clinical Impression: Chest pain Disposition: ADMITTED IP TO THIS HOSP Condition: Serious Decision to Admit Reason: Admit from EC Decision Date: 01/07/20 Decision Time: 02:03
[2020-01-07 00:09] LABS: AST 40 U/L (14-36); Alkaline Phosphatase 66 U/L (38-126); Magnesium 1.6 mg/dL (1.6-2.3); Potassium 4.4 mmol/L (3.5-5.1)
[2020-01-07 00:18] LABS: Basophils % (A) 0 %; Eosinophils # (A) 0.1 k/uL (0-0.7); Eosinophils % (A) 1 %; HCT 43.5 % (34.0-46.0); HGB 14.3 gm/dL (11.4-16.0); Lymphocytes # (A) 0.5 k/uL (1.0-4.8); Lymphocytes % (A) 5 %; MCHC 32.9 g/dL (31.0-37.0); MCV 88.2 fL (80.0-100.0); Mean Platelet Volume 9.2; Monocytes # (A) 0.5 k/uL (0-1.0); Monocytes % (A) 4 %; Neutrophils # (A) 10.7 k/uL (1.3-7.7); Neutrophils % (A) 90 %; Platelet Count 199 k/uL (150-450); RBC 4.94 m/uL (3.80-5.40); RDW 14.3 % (11.5-15.5); WBC 11.9 k/uL (3.8-10.6)
--- NOTE | 2020-01-07 00:54 | CT ---
EXAMINATION TYPE: CT angio thor/abd pel aorta DATE OF EXAM: 01/07/2020 COMPARISON: None HISTORY: chest pain radiating to back CT DLP: 2683.4 mGycm Automated exposure control for dose reduction was used. CONTRAST: Performed with IV Contrast, patient injected with 100 mL of Isovue 370. There are 3-D post processed images. Images were obtained from the thoracic inlet to the floor the pe lvis without and with IV contrast. There are multiple mediastinal enlarged lymph nodes that measure up to 1.5 cm. There are bilateral en larged bronchial lymph nodes up to 1.5 cm. Heart is borderline enlarged. There is no pericardial effu adina. There is normal branching pattern of the great vessels on the aortic arch. Thoracic aorta is in tact. There is no aneurysm or dissection. There is arterial flow in the celiac artery and superior mesenteric artery. There is arterial flow in the renal and iliac and femoral arteries. There is no evidence of aneurysm or dissection. There is n o evidence of hemodynamic stenosis. Bladder distends smoothly. There is no inguinal hernia. Uterus is anteverted. There is no free fluid in the pelvis. There is no evidence of a pelvic mass. There is no mesenteric edema. There are clips from appendectomy. There is no ascites or free air. The re is no sign of a bowel obstruction. There is no adrenal mass. Kidneys show satisfactory contrast op acification. There is no hydronephrosis. The ureters are not dilated. There are some enlarged retrope ritoneal lymph nodes that measure up to 3 x 1.5 cm. There are enlarged gastrohepatic lymph nodes that measure up to 1.9 cm. Liver stomach pancreas gallbladder appear normal. Bile ducts are not dilated. Spleen is intact. There are 2 rounded hypodense foci in the medial spleen that measure almost 2 cm. There is some patchy peripheral nodular pulmonary infiltrate. There is no pleural effusion. Thoracic and lumbar vertebra appear intact. There is no compression fracture. The bony pelvis is inta ct. IMPRESSION: No evidence of aortic aneurysm or dissection. No evidence of hemodynamic stenosis. No evidence of pulmonary embolism. There is mediastinal and bronchial lymphadenopathy. There is some nodular peripheral pulmonary infilt rates. There is abdominal lymphadenopathy. Consider lymphoma or sarcoidosis. Abdominal lymphadenopathy in retrospect is present on the old CT scan of 12/08/2019 and not significa ntly different. Borderline cardiomegaly. Borderline splenomegaly. Spleen measures 13.5 cm. Hypodense foci in the sple en unchanged compared to 12/08/2019 and probably not cysts. Pulmonary infiltrates increased compared to chest CT scan 11/30/2019 and mediastinal lymphadenopathy unchanged.
[2020-01-07] MEDS ORDERED: ONDANSETRON 4 MG/2 ML VIAL IVP PRN (02:00)
[2020-01-07] MEDS ORDERED: NALOXONE 0.4 MG/ML 1 ML VIAL IV PRN (02:00)
[2020-01-07] MEDS ORDERED: MORPHINE SULFATE 4 MG/ML SYRINGE IV PRN (02:00)
--- NOTE | 2020-01-07 05:20 | P.HPIM ---
History of Present Illness H&P Date: 01/07/20 Chief Complaint: Chest pain 44-year-old female with MS, diabetes mellitus, sarcoidosis, hypertension, cardiac arrhythmia secondary to infiltrative disease status post pacemaker Patient comes in due to sudden onset chest pain felt like pressure 10 out of 10 in severity associated with shortness of breath and cold sweats, she claims that she was at her baseline status of health she was able to prepare dinner today 8 with the family and then when she was taking her MS medications glatiramir injection that she's been taking since March she didn't feel well and exactly after about 5 minutes of taking the injection she started experiencing the sudden chest pain radiating straight to the back associated with cold sweats nausea and vomiting she had diarrhea with both bowel and urinary incontinence severe abdominal cramps and she felt very sick she ask her to be brought to the hospital for evaluation she has never experienced anything like this before however she was told in the past that this medicine can cause an ALLERGIC type of reaction at any time down the road. Currently she feels fine and back to her baseline she also complains of right knee pain with swelling getting limited range of motion for couple weeks now otherwise denies any fevers or c hills denies any sick contacts or recent travel she reports that she stays home most of the time. Currently she denies any body aches or chest pain denies any trouble breathing CT angios abdomen and chest in the ED showed no acute abnormalities blood work showed no acute abnormalities except for slightly elevated leukocytosis Review of Systems Pertinent positives as noted in HPI. All other systems were reviewed and are negative Past Medical History Past Medical History: Diabetes Mellitus, Hyperlipidemia, Hypertension, Thyroid Disorder Additional Past Medical History / Comment(s): "dry eyes", "in past had steroid induced gluacoma-resolved", add/adhd, anxiety, depression,"sarcoidosis", eczema, bells palsy affected rt eye,"irreg heart beat"concussion age 12 stated has some learning disablity-problems with spelling.pt stated "was told in past that an ekg had evidence of prior heart attack". pt stated "had stress test approx 6 weeks ago -they never called to tell me if there was a problem so it must have been ok" History of Any Multi-Drug Resistant Organisms: None Reported Past Surgical History: Cholecystectomy, Pacemaker Additional Past Surgical History / Comment(s): pacemaker to maintain resting heart rate, ususal for pt 45-55 Past Anesthesia/Blood Transfusion Reactions: Motion Sickness Additional Past Anesthesia/Blood Transfusion Reaction / Comment(s): cl austerphoba Type of Cardiac Device: Unknown Device Placement Date:: february 2019 Past Psychological History: ADD/ADHD, Anxiety Smoking Status: Never smoker Past Alcohol Use History: None Reported Past Drug Use History: None Reported - Past Family History Mother Family Medical History: AFIB, Deep Vein Thrombosis (DVT), Osteoarthritis (OA) Father Family Medical History: Osteoarthritis (OA), Thyroid Disorder Medications and Allergies Home Medications Medication Instructions Recorded Confirmed Type metFORMIN HCL [Glucophage] 500 mg PO BID 11/10/17 12/08/19 History Ezetimibe [Zetia] 10 mg PO HS 10/06/18 12/08/19 History Dextran 70/Hypromellose [Genteal 1 drop BOTH EYES 5XD PRN 12/09/18 12/08/19 History Tears 0.1%-0.3% Drop] Glatiramer Acetate [Copaxone] 40 mg SQ MOWEFR 12/09/18 12/08/19 History metHOTREXate sodium [Methotrexate] 12.5 mg PO SA 12/09/18 12/08/19 History Multivit with Calcium,Iron,Min 1 tab PO DAILY 02/11/19 12/08/19 History [Women's Multivitamin] Apixaban [Eliquis] 5 mg PO BID #180 tab 02/15/19 12/08/19 Rx carvediloL [Coreg] 3.125 mg PO BID #180 tablet 02/16/19 12/08/19 Rx Levothyroxine Sodium [Synthroid] 175 mcg PO DAILY 06/23/19 12/08/19 History PARoxetine HCL 30 mg PO DAILY 06/23/19 12/08/19 History Halobetasol Propionate [Ultravate] 1 applic TOPICAL BID PRN 12/08/19 12/08/19 History Latanoprost Ophth [Xalatan 0.005%] 1 drops BOTH EYES HS 12/08/19 12/08/19 History Tobramycin 0.3% Ophth Oint [Tobrex 1 applic BOTH EYES BID 12/08/19 12/08/19 Hi story 0.3% Ophth Oint] hydroCHLOROthiazide [Hydrodiuril] 12.5 mg PO DAILY 12/08/19 12/08/19 History Allergies Allergy/AdvReac Type Severity Reaction Status Date / Time Hknjpce-Cef-Mmg Reductase AdvReac FACIAL Verified 01/06/20 22:34 Inhibitor NUMBNESS SEAFOOD Allergy Rash/Hives Uncoded 01/06/20 22:34 Physical Exam Vitals: Vital Signs Temp Pulse Resp BP Pulse Ox 01/07/20 00:40 56 L 18 143/66 99 01/06/20 23:36 58 L 20 174/83 97 01/06/20 22:30 98.9 F 55 L 20 177/126 97 Intake and Output 01/06/20 01/06/20 01/07/20 14:59 22:59 06:59 Other: Weight 124.738 kg Constitutional: No acute distress, conversant, pleasant Eyes: Anicteric sclerae, moist conjunctiva, Pupils equal round reactive to light ENMT: NC/AT Oropharynx clear, no erythema, no exudates Neck: Supple, FROM, no masses, or JVD No carotid bruits No thyromegaly Lungs: Clear to auscultation Clear to percussion Normal respiratory effort, no accessory muscle use Cardiovascular: Heart regular in rate and rhythm, No murmurs, gallops, or rubs No peripheral edema Abdominal: Soft Nontender, no guarding, rebound or rigidity Abdomen moving with respiration Normoactive bowel sounds No hepatomegaly, No splenomegaly No palpable mass No abdominal wall hernia noted Skin: Patchy macular skin rash over the nasal bridge bilaterally, otherwise Normal temperature, tone, texture, turgor No induration No subcutaneous nodules No rash, lesions No ulcers Extremities: Slight swelling of the right knee with limited range of motion due to pain no warmth to the touch no redness no bruising No digital cyanosis No clubbing Pedal pulses intact and symmetrical Radial pulses intact and symmetrical No calf tenderness Psychiatric: Alert and oriented to person, place and time Appropriate affect fair judgement Neuro Muscles Strength 5/5 in all 4 extremities except for limited range of motion over the right knee due to pain Sensation to light touch grossly present throughout Cranial nerves II-XII grossly intact No focal sensory deficits Lymphatics: no palpable cervical or supraclavicular , or inguinal lymph nodes Results CBC & Chem 7: 01/06/20 23:55 01/06/20 23:26 Labs: Abnormal Lab Results - Last 24 Hours (Table) 01/06/20 01/06/20 01/06/20 Range/Units 23:26 23:26 23:55 WBC 11.9 H (3.8-10.6) k/uL Neutrophils # 10.7 H (1.3-7.7) k/uL Lymphocytes # 0.5 L (1.0-4.8) k/uL APTT 18.0 L (22.0-30.0) sec Glucose 141 H (74-99) mg/dL AST 40 H (14-36) U/L Assessment and Plan Assessment: Atypical chest pain possible drug reaction, rule out ACS Aspirin, continue with Zetia Troponins negative continue to trend EKG showed paced rhythm Cardiology consult Right knee swelling Check knee x-ray If confirm effusion consider tapping Chronic conditions Multiple sclerosis Diabetes mellitus, insulin sliding scale Sarcoidosis Arrhythmia status post pacemaker Resume home meds CODE STATUS: Full code DVT prophylaxis: Mechanical Discussed with: Patient, ER, RN Anticipated length of stay less than [address]: Home A total of 60 minutes was spent on the care of this complex patient more than 50% of the time was spent in counseling and care coordination.
[2020-01-07 08:08] LABS: Glucose,Whole Blood 124 mg/dL (75-99)
[2020-01-07] MEDS ORDERED: ARTIFICIAL TEARS-HYPROMELLOSE DROPS 15 ML BTL BOTH EYES PRN (08:12)
[2020-01-07] MEDS: INSULIN ASPART (NovoLOG) 100 UNIT/ML VIAL SQ SCH ×4 (08:13→21:26)
--- NOTE | 2020-01-07 09:13 | XR ---
EXAMINATION TYPE: XR knee limited RT DATE OF EXAM: 01/07/2020 CLINICAL HISTORY: Swelling and pain. TECHNIQUE: 2 views of the right knee are obtained. COMPARISON: Right knee x-ray November 29, 2019 FINDINGS: There is no acute fracture/dislocation evident in the right knee. The tri-compartment tommy nt spaces appear relatively well-maintained on current study. The overlying soft tissue appears unre markable. IMPRESSION: As above.
--- NOTE | 2020-01-07 11:35 | P.PN ---
Progress Note - Text Progress Note Date: 01/07/20 Pt seen and examined today cardiac enzymes negative obtain ddimer Cardiology consulted Knee x ray unremarkable HR 49 , pt states she has chronic low HR monitor Likely home tomorrow if cleared by cardiology
[2020-01-07 11:53] LABS: Glucose,Whole Blood 129 mg/dL (75-99)
--- NOTE | 2020-01-07 12:03 | P.CRDCN ---
History of Present Illness Consult date: 01/07/20 Requesting physician: Laura Brush Reason for Consult (text): chest pain Chief complaint: back pain, N/V/D History of present illness: This is a pleasant 44-year-old female patient with a history of MS and sarcoidosis who follows with Dr. Hinojosa in the office. She has a history of dual-chamber ICD implantation in February of this year. She presented to the emergency department after giving herself an injection for her MS. She developed a sudden feeling of emptiness in her chest followed by a sudden and quick pain shooting from the back of her neck down to her tailbone and followed by nausea, vomiting and diarrhea with loss of bowel control. At the time of my exam the patient is feeling well except for some knee swelling and pain on the right knee. Denies any further complaints of chest discomfort, nausea, vomiting or diarrhea. EKG on admission showed atrial and ventricular paced rhythm. Laboratory values show white blood count of 11,900, potassium 4.4, BUN 13, creatinine 0.61, troponins of 0.023, 0.024 and 0.027. She has been afebrile. Heart rate has been in the 50s. Blood pressure was initially elevated but has since normalized. Upon examination the patient is resting comfortably in bed. She has no further complaints of empty feeling in her chest or back pain. Said no further nausea vomiting or diarrhea. She denies complaints of shortness of breath, dizziness or lightheadedness or palpitations. She has no orthopnea or PND. Past Medical History Past Medical History: Diabetes Mellitus, Hyperlipidemia, Hypertension, Thyroid Disorder Additional Past Medical History / Comment(s): "dry eyes", "in past had steroid induced gluacoma-resolved", add/adhd, anxiety, depression,"sarcoidosis", eczema, bells palsy affected rt eye,"irreg heart beat"concussion age 12 stated has some learning disablity-problems with spelling.pt stated "was told in past that an ekg had evidence of prior heart attack". pt stated "had stress test approx 6 weeks ago -they never called to tell me if there was a problem so it must have been ok" History of Any Multi-Drug Resistant Organisms: None Reported Past Surgical History: Cholecystectomy, Pacemaker Additional Past Surgical History / Comment(s): pacemaker to maintain resting heart rate, ususal for pt 45-55 Past Anesthesia/Blood Transfusion Reactions: Motion Sickness Additional Past Anesthesia/Blood Transfusion Reaction / Comment(s): clausterphoba Type of Cardiac Device: Unknown Device Placement Date:: february 2019 Past Psychological History: ADD/ADHD, Anxiety Smoking Status: Never smoker Past Alcohol Use History: None Reported Past Drug Use History: None Reported - Past Family History Mother Family Medical History: AFIB, Deep Vein Thrombosis (DVT), Osteoarthritis (OA) Father Family Medical History: Osteoarthritis (OA), Thyroid Disorder Medications and Allergies Home Medications Medication Instructions Recorded Confirmed Type metFORMIN HCL [Glucophage] 500 mg PO BID 11/10/17 01/07/20 History Ezetimibe [Zetia] 10 mg PO HS 10/06/18 01/07/20 History Dextran 70/Hypromellose [Genteal 1 drop BOTH EYES 5XD PRN 12/09/18 01/07/20 Hi story Tears 0.1%-0.3% Drop] Glatiramer Acetate [Copaxone] 40 mg SQ MOWEFR 12/09/18 01/07/20 History Multivit with Calcium,Iron,Min 1 tab PO DAILY 02/11/19 01/07/20 History [Women's Multivitamin] Apixaban [Eliquis] 5 mg PO BID #180 tab 02/15/19 01/07/20 Rx carvediloL [Coreg] 3.125 mg PO BID #180 tablet 02/16/19 01/07/20 Rx Levothyroxine Sodium [Synthroid] 175 mcg PO DAILY 06/23/19 01/07/20 History PARoxetine HCL 30 mg PO DAILY 06/23/19 01/07/20 History Halobetasol Propionate [Ultravate] 1 applic TOPICAL BID PRN 12/08/19 01/07/20 History Betamethasone Dipropionate 1 applic TOPICAL BID 01/07/20 01/07/20 History [Diprolene AF 0.05% Cream] HYDROcodone/APAP 7.5-325MG [[place] 1 tab PO Q6H PRN 01/07/20 01/07/20 History 7.5-325] Naproxen [Naprosyn] 500 mg PO Q12HR PRN 01/07/20 01/07/20 History Allergies Allergy/AdvReac Type Severity Reaction Status Date / Time Nxpncbu-Fcf-Mcl Reductase AdvReac FACIAL Verified 01/07/20 10:44 Inhibitor NUMBNESS SEAFOOD Allergy Rash/Hives Uncoded 01/06/20 22:34 Physical Exam Vitals: Vital Signs Temp Pulse Resp BP Pulse Ox 01/07/20 06:00 98.0 F 49 L 16 109/66 100 01/07/20 05:00 50 L 14 01/07/20 00:40 56 L 18 143/66 99 01/06/20 23:36 58 L 20 174/83 97 01/06/20 22:30 98.9 F 55 L 20 177/126 97 Intake and Output 01/06/20 01/07/20 01/07/20 22:59 06:59 14:59 Other: Weight 124.738 kg PHYSICAL EXAMINATION: This is a 44-year-old female in no apparent distress at the time of my examination. VITAL SIGNS: Blood pressure 109/66, heart rate 49, respirations 16, temp 98F. Patient is 100 % on liters via nasal cannula. HEENT: Head is atraumatic, normocephalic. Pupils are equal, round. Sclerae anicteric. Conjunctivae are clear. Mucous membranes of the mouth are moist. Neck is supple. There is no elevated jugular venous pressure. No carotid bruit is heard. CHEST EXAMINATION: Clear to auscultation bilaterally. No wheezes rales or rhonchi. Respirations even and nonlabored. HEART EXAMINATION: Heart regular, positive S1 and S2. No S3. No S4. No clicks, rubs or murmurs. ABDOMEN: Soft, obese, nontender. Bowel sounds are heard. No organomegaly noted. EXTREMITIES: 2+ peripheral pulses with no evidence of peripheral edema and no calf tenderness noted. NEUROLOGIC EXAMINATION: Patient is awake, alert and oriented x3. Results 01/06/20 23:55 01/06/20 23:26 Cardiac Enzymes 01/06/20 01/06/20 01/07/20 Range/Units 23:26 23:26 03:43 AST 40 H (14-36) U/L Troponin I 0.023 0.024 (0.000-0.034) ng/mL 01/07/20 Range/Units 07:21 AST (14-36) U/L Troponin I 0.027 (0.000-0.034) ng/mL Coagulation 01/06/20 Range/Units 23:26 PT 10.1 (9.0-12.0) sec APTT 18.0 L (22.0-30.0) sec CBC 01/06/20 Range/Units 23:55 WBC 11.9 H (3.8-10.6) k/uL RBC 4.94 (3.80-5.40) m/uL Hgb 14.3 (11.4-16.0) gm/dL Hct 43.5 (34.0-46.0) % Plt Count 199 (150-450) k/uL Comprehensive Metabolic Panel 01/06/20 Range/Units 23:26 Sodium 138 (137-145) mmol/L Potassium 4.4 (3.5-5.1) mmol/L Chloride 106 (98-107) mmol/L Carbon Dioxide 26 (22-30) mmol/L BUN 13 (7-17) mg/dL Creatinine 0.61 (0.52-1.04) mg/dL Glucose 141 H (74-99) mg/dL Calcium 9.2 (8.4-10.2) mg/dL AST 40 H (14-36) U/L ALT 18 (4-34) U/L Alkaline Phosphatase 66 (38-126) U/L Total Protein 6.8 (6.3-8.2) g/dL Albumin 3.5 (3.5-5.0) g/dL Current Medications Generic Name Dose Route Start Last Admin Trade Name Freq PRN Reason Stop Dose Admin Artificial Tears 1 drops 01/07/20 08:12 Artificial Tears-Hypromellose Drops 15 Ml Btl BOTH EYES QID PRN Dry Eye(s) Carvedilol 3.125 mg 01/07/20 07:30 Carvedilol 3.125 Mg Tab PO BID-W/MEALS JOHN PAUL Ezetimibe 10 mg 01/07/20 21:00 Ezetimibe 10 Mg Tab PO HS JOHN PAUL Sodium Chloride 1,000 mls @ 150 mls/hr 01/07/20 05:00 Saline 0.9% IV .Q6H40M JOHN PAUL Insulin Aspart 0 unit 01/07/20 07:30 01/07/20 08:13 Insulin Aspart (Novolog) 100 Unit/Ml Vial SQ Not Given ACHS [facility] Protocol Levothyroxine Sodium 100 mcg 01/07/20 06:30 Levothyroxine 100 Mcg Tab PO DAILY@0630 JOHN PAUL Levothyroxine Sodium 75 mcg 01/07/20 06:30 Levothyroxine 75 Mcg Tab PO DAILY@0630 JOHN PAUL Morphine Sulfate 4 mg 01/07/20 02:00 Morphine Sulfate 4 Mg/Ml Syringe IV Q4HR PRN Severe Pain Naloxone HCl 0.2 mg 01/07/20 02:00 Naloxone 0.4 Mg/Ml 1 Ml Vial IV Q2M PRN Opioid Reversal Ondansetron HCl 4 mg 01/07/20 02:00 Ondansetron 4 Mg/2 Ml Vial IVP Q8HR PRN Nausea And Vomiting Paroxetine HCl 30 mg 01/07/20 09:00 Paroxetine 10 Mg Tab PO DAILY JOHN PAUL Intake and Output 01/06/20 01/07/20 01/07/20 22:59 06:59 14:59 Other: Weight 124.738 kg 01/06/20 23:55 01/06/20 23:26 EKG Interpretations (text) Paced rhythm Assessment and Plan Assessment: #1 Symptoms of sudden onset back pain followed by nausea, vomiting and diarrhea of unclear etiology #2 sarcoidosis, status post dual-chamber ICD implantation #3 MS #4 diabetes Plan: From cardiology's perspective we'll obtain a 2-D echo with Doppler to assess cardiac structure and function. We will also have her device interrogated to rule out discharge from ICD. We'll continue to follow the patient and write further recommendations depending on findings and clinical status. MIXING OPERATOR note has been reviewed, I agree with a documented findings and plan of care. Patient was seen and examined.
[2020-01-07] MEDS: SODIUM CHLORIDE 0.9% 1,000 ML IV SCH ×3 (12:11→21:13)
[2020-01-07] MEDS: LEVOTHYROXINE 100 MCG TAB PO SCH (12:11)
[2020-01-07] MEDS: LEVOTHYROXINE 75 MCG TAB PO SCH (12:11)
[2020-01-07] MEDS: carvediloL 3.125 MG TAB PO SCH ×2 (12:11→18:19)
[2020-01-07] MEDS: PARoxetine 10 MG TAB PO SCH (12:32)
[2020-01-07 16:51] LABS: Glucose,Whole Blood 95 mg/dL (75-99)
[2020-01-07] MEDS ORDERED: EZETIMIBE 10 MG TAB PO SCH (21:00)
[2020-01-07 21:23] LABS: Glucose,Whole Blood 85 mg/dL (75-99)
[2020-01-08] MEDS: SODIUM CHLORIDE 0.9% 1,000 ML IV SCH ×3 (05:03→18:14)
[2020-01-08 06:40] LABS: Glucose,Whole Blood 107 mg/dL (75-99)
[2020-01-08] MEDS: INSULIN ASPART (NovoLOG) 100 UNIT/ML VIAL SQ SCH ×3 (06:40→18:10)
[2020-01-08] MEDS: LEVOTHYROXINE 75 MCG TAB PO SCH (06:43)
[2020-01-08] MEDS: carvediloL 3.125 MG TAB PO SCH ×2 (06:43→18:28)
[2020-01-08] MEDS: LEVOTHYROXINE 100 MCG TAB PO SCH (06:43)
[2020-01-08 07:02] VITALS: PULSE 50; RESP 18
[2020-01-08] MEDS: PARoxetine 10 MG TAB PO SCH (10:28)
--- NOTE | 2020-01-08 10:38 | PN ---
PROGRESS NOTE Mrs. Tran is a 44-year-old female with a history of sarcoidosis as well as multiple sclerosis. History of ICD implantation for complete heart block, who presented with symptoms of diarrhea, chest discomfort and dizziness as well as nausea that occurred after giving herself injection of multiple sclerosis. She is feeling well this morning. Her breathing is stable. She denies any dizziness or palpitation. She denies any nausea. On the monitor, there is no evidence of significant arrhythmia. She continues to be on Coreg 3.125 mg twice a day, Zetia 10 mg daily, levothyroxine, paroxetine. PHYSICAL EXAMINATION: Blood pressure running in the 140s to 150s with a heart rate in the 50s. LUNGS: Clear. HEART: Regular rate and rhythm. S1, S2. No S3 with systolic murmur. No diastolic murmur. No rub. ABDOMEN: Soft, nontender. EXTREMITIES: No edema. LAB DATA: Revealed troponin 0.023, 0.024 and 0.027. IMPRESSION: 1. Chest discomfort, atypical for ischemic heart disease probably noncardiac. 2. Status post permanent pacemaker implantation and ICD implant with no evidence of pacemaker malfunction. 3. History of multiple sclerosis. 4. Sarcoidosis. 5. Diabetes mellitus. 6. Hypertension. RECOMMENDATIONS: Patient should be able to be discharged home today. I would recommend to follow her blood pressure as an outpatient to see further adjustment as needed. She will follow up with Dr. Hinojosa to further address her status and guide her treatment. At this time, I see no evidence to suggest active ischemic heart symptoms. MMODL / IJN: [id number] /
[2020-01-08 12:30] LABS: Glucose,Whole Blood 142 mg/dL (75-99)
--- NOTE | 2020-01-08 15:53 | P.DS ---
Providers Date of admission: 01/07/20 02:25 Expected date of discharge: 01/08/20 Attending physician: Laura Brush MD Consults: 01/07/20 02:01 Consult Physician Routine Consulting Provider: [facility] Consult Reason/Comments: Chest Pain Do you want consulting provider notified?: Yes Primary care physician: Costa Ezekiel [facility] Course: Discharge Diagnosis: Atypical chest pain-> ACS ruled out Right knee swelling Multiple sclerosis Diabetes mellitus Sarcoidosis Arrhythmia status post pacemaker Hospital Course: Patient is a 44-year-old female with a past medical history of multiple sclerosis, diabetes mellitus, sarcoidosis, hypertension who presented to the ED with sudden onset chest pain. Patient states that she had this chest pain shortly after taking her MS medication glairamir injection. Patient believes that she may have had a ALLERGIC reaction. When patient arrived to the ED her chest pain had resolved. Patient had a CTA chest that was negative for pulmonary embolism. Patient's troponin were negative 3. She was seen by cardiology who did not believe her chest pain was due to ischemic heart disease. Patient was deemed stable for discharge by cardiology. She is instructed to follow-up with her fixed income director . Of note when patient came in she is also complaining of right knee swelling. X- ray of her right knee was unremarkable. At the time of discharge patient reported that her right knee pain had improved. 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 Patient Condition at Discharge: Serious Plan - Discharge Summary Discharge Rx Participant: No New Discharge Prescriptions: Continue metFORMIN HCL [Glucophage] 500 mg PO BID Ezetimibe [Zetia] 10 mg PO HS Glatiramer Acetate [Copaxone] 40 mg SQ MOWEFR Dextran 70/Hypromellose [Genteal Tears 0.1%-0.3% Drop] 1 drop BOTH EYES 5XD PRN PRN Reason: Dry Eye(S) Multivit with Calcium,Iron,Min [Women's Multivitamin] 1 tab PO DAILY Apixaban [Eliquis] 5 mg PO BID #180 tab carvediloL [Coreg] 3.125 mg PO BID #180 tablet PARoxetine HCL 30 mg PO DAILY Levothyroxine Sodium [Synthroid] 175 mcg PO DAILY Halobetasol Propionate [Ultravate] 1 applic TOPICAL BID PRN PRN Reason: DRY FEET HYDROcodone/APAP 7.5-325MG [[place] 7.5-325] 1 tab PO Q6H PRN PRN Reason: Pain Betamethasone Dipropionate [Diprolene AF 0.05% Cream] 1 applic TOPICAL BID Discontinued Naproxen [Naprosyn] 500 mg PO Q12HR PRN PRN Reason: Pain Discharge Medication List metFORMIN HCL [Glucophage] 500 mg PO BID 11/10/17 [History] Ezetimibe [Zetia] 10 mg PO HS 10/06/18 [History] Dextran 70/Hypromellose [Genteal Tears 0.1%-0.3% Drop] 1 drop BOTH EYES 5XD PRN 12/09/18 [History] Glatiramer Acetate [Copaxone] 40 mg SQ MOWEFR 12/09/18 [History] Multivit with Calcium,Iron,Min [Women's Multivitamin] 1 tab PO DAILY 02/11/19 [History] Apixaban [Eliquis] 5 mg PO BID #180 tab 02/15/19 [Rx] carvediloL [Coreg] 3.125 mg PO BID #180 tablet 02/16/19 [Rx] Levothyroxine Sodium [Synthroid] 175 mcg PO DAILY 06/23/19 [History] PARoxetine HCL 30 mg PO DAILY 06/23/19 [History] Halobetasol Propionate [Ultravate] 1 applic TOPICAL BID PRN 12/08/19 [History] Betamethasone Dipropionate [Diprolene AF 0.05% Cream] 1 applic TOPICAL BID 01/07/20 [History] HYDROcodone/APAP 7.5-325MG [[place] 7.5-325] 1 tab PO Q6H PRN 01/07/20 [History] Follow up Appointment(s)/Referral(s): Erasto Hinojosa MD [STAFF PHYSICIAN] - 1 Week Costa Falcon [Primary Care Provider] - 1-2 days Discharge Disposition: HOME SELF-CARE
[2020-01-08 18:03] LABS: Glucose,Whole Blood 91 mg/dL (75-99)
[2020-01-08 18:09] VITALS: BP 157/79; TEMP 97.8
--- NOTE | 2020-01-13 09:33 | ECHOF ---
Referral Reason: MEASUREMENTS -------- HEIGHT: 167.6 cm WEIGHT: 124.7 kg BP: IVSd: 1.4 cm (0.6 - 1.1) LVIDd: 6.0 cm (3.9 - 5.3) LVPWd: 1.4 cm (0.6 - 1.1) EDV(Teich): 181 ml IVSs: 2.0 cm LVIDs: 4.8 cm LVPWs: 1.8 cm %IVS Thck: 38 % ESV(Teich): 108 ml EF(Teich): 40 % %FS: 20 % SV(Teich): 73 ml RVIDd: 2.8 cm (< 3.3) Ao Diam: 3.1 cm (2.0 - 3.7) LA Diam: 4.8 cm (2.7 - 3.8) EPSS: 1.4 cm MV E Ming: 0.70 m/s MV DecT: 325 ms MV Dec Daniels: 2.1 m/s MV A Ming: 0.66 m/s MV E/A Ratio: 1.05 MV PHT: 94 ms MR Vmax: 0.90 m/s MR maxP.27 mmHg AV Vmax: 0.99 m/s AV maxP.92 mmHg TR Vmax: 0.95 m/s TR maxP.59 mmHg RAP: 5.00 mmHg RVSP: 8.59 mmHg MV EF SLOPE: 30.09 mm/s (70 - 150) MV EXCURSION: 15.62 mm (> 18.000) FINDINGS -------- This was a technically difficult study with suboptimal views. The left ventricle is moderately dilated. There is moderate concentric left ventricular hypertrophy . Overall left ventricular systolic function is mild-moderately impaired with, an EF between 40 - 4 5 %. Left ventricular fillimg pressure cannot be estimated due to paced rhythm. The RV was not well visualized. The left atrial size is normal. The right atrium was not well visualized. Lumason used The aortic valve was not well visualized. The mitral valve was not well visualized. The tricuspid valve was not well visualized. The pulmonic valve was not well visualized. The aortic root size is normal. IVC Not well visulized. There is no pericardial effusion. CONCLUSIONS -------- 1. The left ventricle is moderately dilated. 2. There is moderate concentric left ventricular hypertrophy. 3. Overall left ventricular systolic function is mild-moderately impaired with, an EF between 40 - 45 %. 4. Left ventricular fillimg pressure cannot be estimated due to paced rhythm. 5. There is no pericardial effusion. FLAME ANNEALING MACHINE OPERATOR: Yuly Cortez RDCS
== END 2020-01-08 18:49 | disposition home or self-care (01) ==
LOC: EC 22:16 → 1SOBS 01-07 02:25
PROVIDERS: ADMIT Internal Medicine; ATTEND Internal Medicine
DX: R07.89 Other chest pain (principal); M25.561 Pain in right knee; R22.41 Localized swelling, mass and lump, right lower limb; G35 Multiple sclerosis; D86.9 Sarcoidosis, unspecified; E11.9 Type 2 diabetes mellitus without complications; I49.9 Cardiac arrhythmia, unspecified; I11.0 Hypertensive heart disease with heart failure; I50.9 Heart failure, unspecified; E78.5 Hyperlipidemia, unspecified; R15.9 Full incontinence of feces; R32 Unspecified urinary incontinence; R19.7 Diarrhea, unspecified; R11.2 Nausea with vomiting, unspecified; R61 Generalized hyperhidrosis; R10.9 Unspecified abdominal pain; F41.9 Anxiety disorder, unspecified; F90.9 Attention-deficit hyperactivity disorder, unspecified type; F32.9 Major depressive disorder, single episode, unspecified; F40.240 Claustrophobia; L30.9 Dermatitis, unspecified; H04.129 Dry eye syndrome of unspecified lacrimal gland; R59.0 Localized enlarged lymph nodes; M54.9 Dorsalgia, unspecified; I44.2 Atrioventricular block, complete; R42 Dizziness and giddiness; Z79.84 Long term (current) use of oral hypoglycemic drugs; Z79.899 Other long term (current) drug therapy; Z79.890 Hormone replacement therapy; Z79.01 Long term (current) use of anticoagulants; Z91.013 Allergy to seafood; Z88.8 Allergy status to other drugs, medicaments and biological substances; Z90.49 Acquired absence of other specified parts of digestive tract; I25.2 Old myocardial infarction; Z95.810 Presence of automatic (implantable) cardiac defibrillator; Z87.820 Personal history of traumatic brain injury; Z95.0 Presence of cardiac pacemaker; Z82.49 Family history of ischemic heart disease and other diseases of the circulatory system; Z82.61 Family history of arthritis; Z83.49 Family history of other endocrine, nutritional and metabolic diseases
CPT/HCPCS: 96376; 96361 ×2; 96374; 99285; 36415; 93005; 85379; 80053; 83690; 83735; 84484 ×3; 85025; 85610; 85730; 73560; 71046; 71275; 74174; G0378 ×2; C8929; J2405 ×2; Q9967; 93306

== ENCOUNTER → 2020-01-23 | Outpatient (CLI) | payer OTHER ==
[2020-01-23 13:51] LABS: Basophils % (A) 1 %; Eosinophils # (A) 0.2 k/uL (0-0.7); Eosinophils % (A) 3 %; HGB 14.4 gm/dL (11.4-16.0); Lymphocytes # (A) 1.1 k/uL (1.0-4.8); Lymphocytes % (A) 21 %; MCH 29.4 pg (25.0-35.0); MCHC 33.4 g/dL (31.0-37.0); MCV 88.1 fL (80.0-100.0); Mean Platelet Volume 8.4; Monocytes # (A) 0.3 k/uL (0-1.0); Monocytes % (A) 6 %; Neutrophils # (A) 3.8 k/uL (1.3-7.7); Neutrophils % (A) 69 %; Platelet Count 201 k/uL (150-450); RBC 4.88 m/uL (3.80-5.40); RDW 13.5 % (11.5-15.5); WBC 5.5 k/uL (3.8-10.6)
[2020-01-23 20:25] LABS: HIV 2 AB Non-Reactive (Non-Reactive); HIV AB P24 Non-Reactive (Non-Reactive); HIV P24 AG Non-Reactive (Non-Reactive)
[2020-01-23 20:39] LABS: T4, Free (Free Thyroxine) 1.1 ng/dL (0.80-1.80)
[2020-01-23 20:55] LABS: African American GFR (CKD) 121.3 (60.0-200.0); Albumin 4.4 g/dL (3.80-4.90); Albumin/Globulin Ratio 1.63 (1.60-3.17); Anion Gap 6.3 mmol/L (4.00-12.00); BUN/Creat Ratio 21.43 Ratio (12.00-20.00); Calcium 9.6 mg/dL (8.7-10.3); Carbon Dioxide 31.7 mmol/L (21.6-31.8); Globulin 2.7 g/dL (1.6-3.3); Non-African American GFR(CKD) 104.6 (60.0-200.0); Potassium 3.9 mmol/L (3.5-5.5); Total Bilirubin 0.7 mg/dL (0.3-1.2); Total Protein 7.1 g/dL (6.2-8.2)
[2020-01-23 21:10] LABS: Folate, Serum 11.4 ng/mL
[2020-01-23 22:51] LABS: Hepatitis B Core IgM Non-Reactive (Non-Reactive); Hepatitis B Surface AB- Quant 5.3 mIU/mL; Hepatitis B Surface Antibody Non-Reactive (Non-Reactive); Hepatitis B Surface Antigen Non-Reactive (Non-Reactive)
[2020-01-23 23:16] LABS: Hemoglobin A1C 6.3 % (4.0-6.0)
== END | disposition home or self-care (01) ==
LOC: LABWHC1 12:26
PROVIDERS: ATTEND Psychiatry & Neurology Pain Medicine
DX: Z51.81 Encounter for therapeutic drug level monitoring (principal); Z79.899 Other long term (current) drug therapy; G35 Multiple sclerosis
CPT/HCPCS: 36415; 80053; 82306; 82607; 82746; 83036; 84207; 84425; 84439; 84443; 84481; 84591; 85025; 86704; 86705; 86706; 86787; 87340; 87390

== ENCOUNTER → 2020-02-13 | Day surgery (SDC) | payer OTHER ==
[2020-02-02 10:45] VITALS: BMI 44.4
[~2020-02-13] MED LIST changes: +IOPAMIDOL-370 50ML BTL INJ ONE; -LACTATED RINGERS 1,000 ML IV SCH; -PROPOFOL 10 MG/ML 20 ML VIAL IV ONE; -SODIUM CHLORIDE 0.9% 500 ML 500 ML IV ONE
[2020-02-13 10:11] VITALS: BP 190/81; PULSE 49; RESP 18; TEMP 98.1
[2020-02-13 10:15] LABS: Glucose,Whole Blood 140 mg/dL (75-99)
--- NOTE | 2020-02-13 13:18 | P.PCN ---
Preoperative Diagnosis: Diagnosis Complete heart block that developed after dual-chamber ICD implant 100% RV pacing Development of mild cardiomyopathy Awaiting upgrade to biventricular ICD Procedures Left upper extremity venogram Cinefluoroscopy of the leads Cinefluoroscopy of the leads was performed. Atrial lead screwed in the right atrial appendage RV lead in the right ventricle him a screw-in lead No fractures or breaks 15 mL of IV dye injected in the left upper extremity Patent cephalic axillary and subclavian venous systems as well as innominate vein Plan Proceed with upgrade to a biventricular ICD
== END | disposition home or self-care (01) ==
LOC: CATHEP 09:55
PROVIDERS: ATTEND Internal Medicine Clinical Cardiac Electrophysiology
DX: I44.2 Atrioventricular block, complete (principal); I42.0 Dilated cardiomyopathy; D86.3 Sarcoidosis of skin; D86.89 Sarcoidosis of other sites; Z95.810 Presence of automatic (implantable) cardiac defibrillator; I11.0 Hypertensive heart disease with heart failure; I50.20 Unspecified systolic (congestive) heart failure; E78.5 Hyperlipidemia, unspecified; E11.9 Type 2 diabetes mellitus without complications; I47.2 Ventricular tachycardia; Z79.01 Long term (current) use of anticoagulants; Z79.84 Long term (current) use of oral hypoglycemic drugs; Z79.890 Hormone replacement therapy; Z79.899 Other long term (current) drug therapy; Z88.8 Allergy status to other drugs, medicaments and biological substances
CPT/HCPCS: 36005; 75820; 76000; Q9967

== ENCOUNTER 2020-02-16 11:37 | Day surgery (SDC) | payer OTHER ==
[2020-02-13 14:37] VITALS: BMI 43.5
[~2020-02-16 11:37] MED LIST changes: -IOPAMIDOL-370 50ML BTL INJ ONE; +LACTATED RINGERS 1,000 ML IV SCH; +ceFAZolin 1 GM in SODIUM CHLORIDE 0.9% 250 ML IRRIGATION PRN
[2020-02-16 12:00] LABS: Glucose,Whole Blood 132 mg/dL (75-99)
[2020-02-16] MEDS ORDERED: SODIUM CHLORIDE 0.9% 500 ML 500 ML IV ONE ×2 (12:03→15:49)
[2020-02-16] MEDS ORDERED: LIDOCAINE 1% INJ 10MG/ML (20 ML MDV) ONE (13:19)
[2020-02-16] MEDS ORDERED: MIDAZOLAM 2 MG/2 ML VIAL ONE (13:28)
[2020-02-16] MEDS ORDERED: fentaNYL (PF) 50 MCG/ML 2 ML AMP ONE (13:28)
[2020-02-16] MEDS ORDERED: HYDROmorphone (PF) 1 MG/ML ONE (13:28)
[2020-02-16] MEDS ORDERED: LIDOCAINE 1% INJ 10MG/ML (20 ML MDV) SQ ONE ×3 (13:54→15:30)
[2020-02-16] MEDS ORDERED: IOPAMIDOL-250 50ML BTL IV ONE (14:39)
[2020-02-16] MEDS ORDERED: ACETAMINOPHEN TAB 325 MG TAB PO PRN (15:57)
--- NOTE | 2020-02-16 16:59 | CE ---
CARDIAC ELECTROPHYSIOLOGY REPORT DATE OF SERVICE: 02/16/2020 Bernice Tran is a 44-year-old female who has a dual-chamber ICD and a history of cardiac and systemic sarcoidosis. Over the last several months, she has had worsening LV dysfunction associated with complete heart block. Prior to that she did not have complete heart block. This is a recent development over the last 6 months or so. She is brought in for an upgrade to a biventricular ICD and implantation of new LV lead. PROCEDURE IN DETAIL: The patient was brought to the EP lab in a fasting state. Written informed consent was obtained prior to the procedure. The left shoulder area was prepped and draped as per protocol. 1% lidocaine was used for local anesthesia. A 4 cm incision was made directly over the previous surgical site and carried down to the level of the generator. The old generator was explanted at the end of the procedure and a new generator was implanted at the end of the procedure. Partial capsulectomy was performed. The axillary vein access was obtained and venoplasty of the left subclavian venous stenosis was performed and a 9.5-Italian sheath was placed in the subclavian vein. Via this a coronary sinus catheter was placed and coronary sinus was accessed and venogram was performed. The venogram revealed very diminutive anterolateral and anteroseptal veins and a large posterolateral vein and middle cardiac vein. The posterolateral vein was dilated for LV lead placement. This was sub-selected with a sub-selecting catheter and sheath was placed within the posterolateral vein. An LV lead was placed ([employer]). This was model #1458 QL, 86 cm in length and serial number [id number]. The lead was positioned in the posterolateral vein distally and pacing was performed in the proximal poles. No diaphragmatic stimulation was noted in the proximal two poles. The threshold was 1.9 V at 0.5 milliseconds and pacing impedance of 690 ohms. The leads were secured to the underlying pectoralis muscle using 2 nonabsorbable sutures. Pocket was irrigated with antibiotic solution. The new generator was implanted. This was a Galant heart failure, serial [id number] serial #[id number]. The leads and generator were then placed in subfascial pocket. The wound was closed in 3 layers and dressed per protocol. RESULTS: Successful upgrade to a biventricular ICD with LV lead placed in the posterolateral vein. The device then programmed to DDDR with a paced AV delay of 110 milliseconds at a rate of 60 beats per minute. LV to RV offset of 20 milliseconds. Mid-LAD programming was performed. High-voltage impedance 69 ohms. The atrial pacing threshold 0.7 V at 0.5 milliseconds. P waves 1.5 mV, pacing impedance 500 ohms. The RV pacing threshold was 0.7 V at 0.5 milliseconds with impedance of 430 ohms. The patient tolerated the procedure well without any acute complications. 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 MMODL / IJN: [id number] /
[2020-02-16] MEDS ORDERED: ACETAMINOPHEN IV (For NPO) 1,000 MG in EMPTY BAG 1 BAG IVPB ONE (17:00)
--- NOTE | 2020-02-16 18:00 | XR ---
EXAMINATION: XR chest 2V portable DATE AND TIME: 02/16/2020 5:27 PM CLINICAL INDICATION: PHH; Lead placement check TECHNIQUE: AP upright portable - 2 AP views COMPARISON: 01/06/2020 FINDINGS: Cardiac pacemaker projects over the left scapula, with cardiac leads superimposed over the right atrium and right ventricle. The lungs appear to be clear. The pleural spaces are negative. The cardiac silhouette is not enlarged . The remainder of the mediastinal silhouette is unremarkable. The skeletal structures and soft tissu es are negative for acute findings. IMPRESSION: NO ACUTE PROCESS.
[2020-02-16 18:20] VITALS: PULSE 60
[2020-02-16] MEDS: carvediloL 3.125 MG TAB PO SCH (18:44)
[2020-02-16] MEDS: HYDROcodone/APAP 5-325MG 1 EACH TAB PO PRN (19:51)
[2020-02-16] MEDS ORDERED: EZETIMIBE 10 MG TAB PO SCH (21:00)
[2020-02-16 21:30] LABS: Glucose,Whole Blood 116 mg/dL (75-99)
[2020-02-16] MEDS: APIXABAN 5 MG TAB PO SCH (21:30)
[2020-02-16] MEDS: metFORMIN 500 MG TAB PO SCH (21:30)
[2020-02-17] MEDS: HYDROcodone/APAP 5-325MG 1 EACH TAB PO PRN ×2 (04:22→11:10)
[2020-02-17] MEDS ORDERED: LEVOTHYROXINE 88 MCG TAB PO SCH (06:30)
[2020-02-17] MEDS: carvediloL 3.125 MG TAB PO SCH (06:38)
[2020-02-17 08:13] VITALS: BP 139/68; RESP 16; TEMP 98.1
[2020-02-17] MEDS: metFORMIN 500 MG TAB PO SCH (08:45)
[2020-02-17] MEDS: APIXABAN 5 MG TAB PO SCH (08:45)
[2020-02-17] MEDS ORDERED: PARoxetine 10 MG TAB PO SCH (09:00)
[2020-02-17] MEDS ORDERED: FOLIC ACID 1 MG TAB PO SCH (09:00)
[2020-02-18] MEDS ORDERED: metHOTREXate sodium 2.5 MG TAB PO SCH (09:00)
--- NOTE | 2020-02-20 18:57 | P.DS ---
Providers Attending physician: Erasto Hinojosa Primary care physician: [place] [facility] Course: Patient is doing fairly well post upgrade to a biventricular ICD The site is mildly tender she complains of discomfort there but there is no swelling no hematoma no soakage No chest discomfort no undue shortness of breath orthopnea PND On examination afebrile 98.1F, blood pressure 139/68 mmHg pulse rate in the 60s Heart sounds S1 and S2 are normal no murmurs no gallops no rub Breath sounds are clear no rhonchi no crackles Abdomen soft nontender Extremities warm No JVD Impression Cardiac sarcoidosis Dual-chamber ICD with 100% RV pacing Upgrade to a biventricular ICD LV lead in the posterior lateral vein and this was the only usable vein Extremely diminutive anterior and lateral veins, unusable, Large posterior lateral vein. Diaphragmatic stimulation only distally, approximately in the vein, in the proximal LV lead poles there was no diaphragmatic stimulation Plan Discharge home after completion of IV antibiotics Continue cardiac medications Follow-up in the device clinic within one week Plan - Discharge Summary Discharge Rx Participant: No New Discharge Prescriptions: No Action RX: metFORMIN HCL [Glucophage] 500 mg PO BID RX: Ezetimibe [Zetia] 10 mg PO HS RX: Dextran 70/Hypromellose [Genteal Tears 0.1%-0.3% Drop] 1 drop BOTH EYES 5XD PRN PRN Reason: Dry Eye(S) RX: Multivit with Calcium,Iron,Min [Women's Multivitamin] 1 tab PO DAILY RX: Apixaban [Eliquis] 5 mg PO BID #180 tab RX: carvediloL [Coreg] 3.125 mg PO BID #180 tablet RX: PARoxetine HCL 30 mg PO DAILY RX: Levothyroxine Sodium [Synthroid] 175 mcg PO DAILY RX: Halobetasol Propionate [Ultravate] 1 applic TOPICAL BID PRN PRN Reason: DRY FEET RX: Betamethasone Dipropionate [Diprolene AF 0.05% Cream] 1 applic TOPICAL BID PRN PRN Reason: Rash RX: Folic Acid 1 mg PO DAILY metHOTREXate sodium [Methotrexate] 12.5 mg PO SA Discharge Medication List RX: metFORMIN HCL [Glucophage] 500 mg PO BID 11/10/17 [History] RX: Ezetimibe [Zetia] 10 mg PO HS 10/06/18 [History] RX: Dextran 70/Hypromellose [Genteal Tears 0.1%-0.3% Drop] 1 drop BOTH EYES 5XD PRN 12/09/18 [History] RX: Multivit with Calcium,Iron,Min [Women's Multivitamin] 1 tab PO DAILY 02/11/19 [History] RX: Apixaban [Eliquis] 5 mg PO BID #180 tab 02/15/19 [Rx] RX: carvediloL [Coreg] 3.125 mg PO BID #180 tablet 02/16/19 [Rx] RX: Levothyroxine Sodium [Synthroid] 175 mcg PO DAILY 06/23/19 [History] RX: PARoxetine HCL 30 mg PO DAILY 06/23/19 [History] RX: Halobetasol Propionate [Ultravate] 1 applic TOPICAL BID PRN 12/08/19 [History] RX: Betamethasone Dipropionate [Diprolene AF 0.05% Cream] 1 applic TOPICAL BID PRN 01/07/20 [History] RX: Folic Acid 1 mg PO DAILY 02/02/20 [History] metHOTREXate sodium [Methotrexate] 12.5 mg PO SA 02/02/20 [History] Follow up Appointment(s)/Referral(s): Erasto Hinojosa MD [STAFF PHYSICIAN] - 02/24/20 2:30 pm (Device clinic) Patient Instructions/Handouts: Pacemaker (DC)
== END 2020-02-17 13:25 ==
LOC: CATHEP 11:37 → 1SOBS 15:49 → CATHEP 02-17 13:25
PROVIDERS: ATTEND Internal Medicine Clinical Cardiac Electrophysiology
DX: I49.5 Sick sinus syndrome (principal); I44.2 Atrioventricular block, complete; I47.1 Supraventricular tachycardia; D86.89 Sarcoidosis of other sites; I42.0 Dilated cardiomyopathy; I42.8 Other cardiomyopathies; I48.91 Unspecified atrial fibrillation; I10 Essential (primary) hypertension; E78.5 Hyperlipidemia, unspecified; G47.33 Obstructive sleep apnea (adult) (pediatric); E66.01 Morbid (severe) obesity due to excess calories; E07.9 Disorder of thyroid, unspecified; E11.9 Type 2 diabetes mellitus without complications; G35 Multiple sclerosis; F98.8 Other specified behavioral and emotional disorders with onset usually occurring in childhood and adolescence; G51.0 Bell's palsy; F41.9 Anxiety disorder, unspecified; M19.90 Unspecified osteoarthritis, unspecified site; Z90.49 Acquired absence of other specified parts of digestive tract; Z79.890 Hormone replacement therapy; Z79.84 Long term (current) use of oral hypoglycemic drugs; Z79.01 Long term (current) use of anticoagulants; Z79.899 Other long term (current) drug therapy; Z88.8 Allergy status to other drugs, medicaments and biological substances; Z91.013 Allergy to seafood; Z99.89 Dependence on other enabling machines and devices; Z68.41 Body mass index [BMI] 40.0-44.9, adult
CPT/HCPCS: 33225; 33249; 84703; 71045; C1769 ×4; C1882; C1892; C1730; C1900; J2250; J0690 ×2; J2001; J3010; J1170; J0131; Q9966

== ENCOUNTER → 2020-09-03 | Outpatient (CLI) | payer OTHER ==
[2020-09-03 11:16] LABS: African American GFR (CKD) >90 (>60 ml/min/1.73 sqM); Blood Urea Nitrogen 11 mg/dL (7-17); Non-African American GFR(CKD) >90 (>60 ml/min/1.73 sqM)
--- NOTE | 2020-09-03 12:21 | CT ---
EXAMINATION TYPE: CT brain wo/w con DATE OF EXAM: 09/03/2020 COMPARISON: None HISTORY: multiple sclerosis, DDD CT DLP: 2193.6 mGycm Automated Exposure Control for Dose Reduction was Utilized. TECHNIQUE: CT scan of the head is performed with IV contrast.,CT scan of the head is performed withou t and with without and with IV Contrast, patient injected with 100 mL of Isovue 300. COMPARISON: None. FINDINGS: Noncontrast images show no acute intracranial hemorrhage or midline shift. The ventricles and sulci are within normal limits in size. Vague low attenuation in the white matter is not. No mid line shift or mass effect. Postcontrast administration no enhancing lesions. Calvarium intact. Cerebe llar tonsils low-lying in position level of foramen magnum. Sella turcica has a normal appearance. Th ere is a prominent density along the inferior right maxillary antrum may represent enlarged intraocul ar muscle. Similar finding seen involving the medial rectus muscle on the left. Correlate for exophth almos. IMPRESSION: 1. No enhancing lesions. I could not exclude vague faint low attenuation in the white matter. Recomme nd follow-up MRI of the brain. Finding would be nonspecific could be associated with demyelinating di sease or remote white matter ischemia. 2. Appears to be intraocular muscle enlargement involving both orbits with the inferior rectus on the right and medial rectus on the left most pronounced. Recommend orbital MRI correlation for history o f thyroid ophthalmopathy.
--- NOTE | 2020-09-03 12:26 | CT ---
EXAMINATION TYPE: CT CervThoracic spine wo/w con DATE OF EXAM: 09/03/2020 COMPARISON: None HISTORY: multiple sclerosis, DDD CT DLP: 6903.7 mGycm Automated exposure control for dose reduction was used. CONTRAST: Performed without and with IV Contrast, patient injected with 100 mL of Isovue 300. CT of the cervical and thoracic spine are performed with and without contrast. Bone and soft tissue w indow settings are submitted. Axial, coronal and sagittal images are reviewed at the workstation. FINDINGS: Cervical spine: Mild degenerative disc space narrowing and spondylosis at C5-6 and C6-7. No disc jarrod iation or protrusion seen with certainty. No evidence for central stenosis. Remaining levels are with in normal limits. No foraminal encroachment. Patient motion limits portions of the study. No evidence for fracture or malalignment. No pathologic enhancement identified. Thoracic spine: Degenerative narrowing and spondylosis at T8-T9. Ventral spondylosis. No central stenosis. Remaining thoracic levels are within normal limits. No evidence for fracture or malalignment. No pathologic enh ancement seen. Please note evaluation of the spinal cord is limited and if there is concern for spinal cord patholog y one should consider MRI correlation. IMPRESSION: DEGENERATIVE CHANGES NOTED.
--- NOTE | 2020-09-03 12:27 | CT ---
EXAMINATION TYPE: CT lumbar spine wo con DATE OF EXAM: 09/03/2020 12:11 PM COMPARISON: 12/08/2019 HISTORY: multiple sclerosis, DDD CT DLP: 1945 mGycm Automated exposure control for dose reduction was used. Unenhanced CT of the lumbar spine was performed. Bone and soft tissue window settings are submitted as well as coronal and sagittal reconstructions. Nonobstructing 2 mm right renal midpole posterior ca lculus. Atherosclerotic change of the aorta. Shotty adenopathy in the retroperitoneum single patholog ic 1 cm mesenteric node seen. Sclerosis involving the SI joints bilaterally correlate for sacroiliiti s. Assessment spinal canal limited due to artifact and resolution. L1-L2: Degenerative disc disease with mild circumferential disc bulging. Neural foramina patent. No C anal stenosis. L2-L3: Degenerative disc disease with hypertrophic spurring anteriorly. Mild circumferential disc bul ging but no focal herniation or canal stenosis. Neural foramina patent. L3-L4: Degenerative disc disease with no disc herniation or canal stenosis. Circumferential disc bulg ing with mild bilateral foraminal encroachment. L4-L5: Hypertrophic change of the facets. There is left paracentral and lateral disc bulging. Neural foramina remains patent. No Canal stenosis. L5-S1: Disc spaces preserved. There is a left paracentral disc bulge or small broad-based protrusion. Neural foramina remain patent. Hypertrophic change of the facets IMPRESSION: 1. Multilevel mild to moderate degenerative disc disease most marked at levels L2-3 and L3-L4. 2. Nonobstructing right renal calculus measuring 3 mm. 3. Disc bulging at multiple levels as discussed above with broad-based paracentral left extrusion L5- S1. 4. Retroperitoneal and mesenteric lymphadenopathy recommend follow-up CT of the abdomen and pelvis. 5. Bilateral mild sacroiliitis.
== END | disposition home or self-care (01) ==
LOC: RADCTMAIN 10:19
PROVIDERS: ATTEND Family Medicine
DX: R93.0 Abnormal findings on diagnostic imaging of skull and head, not elsewhere classified (principal); M51.36 Other intervertebral disc degeneration, lumbar region; R59.0 Localized enlarged lymph nodes; M50.322 Other cervical disc degeneration at C5-C6 level; M47.812 Spondylosis without myelopathy or radiculopathy, cervical region; M47.814 Spondylosis without myelopathy or radiculopathy, thoracic region
CPT/HCPCS: 82565; 84520; 72130; 72127; 72131; 70470; 36415; Q9967

== ENCOUNTER → 2020-10-19 | Outpatient (CLI) | payer OTHER | END | disposition home or self-care (01) | LOC: RADCTMAIN 11:34 | PROVIDERS: ATTEND Family Medicine | DX: Z53.9 Procedure and treatment not carried out, unspecified reason (principal) ==

== ENCOUNTER 2020-11-13 09:25 | Observation (INO) | payer OTHER ==
[2020-11-13] MEDS ORDERED: ASPIRIN 81 MG PO STA (09:49)
[2020-11-13] MEDS ORDERED: LORazepam 2 MG/ML INJ IV STA (09:49)
--- NOTE | 2020-11-13 09:51 | ED ---
General Adult HPI - General Chief complaint: Chest Pain Stated complaint: chest pain Time Seen by Provider: 11/13/20 09:30 Source: patient, family, RN notes reviewed, old records reviewed Mode of arrival: wheelchair Limitations: no limitations - History of Present Illness Initial comments: This is a 45 over female presents emergency Department complaining of chest pain. Patient states started 2:00 morning after she was in an argument. Patient states the pain continues currently. Patient states she is short of breath and the pain radiates from the front to the back. Patient states she is no diaphoretic episodes she had no nausea. Patient states after she got upset she was crying and coughing quite a bit area patient states she has no fever or chills. Patient has a past history of a pacemaker placement and congestive heart failure. Patient also states she is a diabetic with high blood pressure high cholesterol. Patient denies smoking. Patient states that pain is a pressure sensation and feels like her lungs are trying to expand out of her chest. Patient denies any swelling to legs or calf tenderness. Patient denies lightheadedness or dizziness. - Related Data Home Medications Medication Instructions Recorded Confirmed metFORMIN HCL [Glucophage] 500 mg PO BID 11/10/17 11/13/20 Ezetimibe [Zetia] 10 mg PO HS 10/06/18 11/13/20 PARoxetine HCL 30 mg PO DAILY 06/23/19 11/13/20 Artificial Tears-Hypromellose 1 drops BOTH EYES TID PRN 11/13/20 11/13/20 [Artificial Tear Drops] Latanoprost [Xalatan 0.005%] 1 drop BOTH EYES HS 11/13/20 11/13/20 Levothyroxine Sodium [Synthroid] 175 mcg PO DAILY 11/13/20 11/13/20 metFORMIN HCL [Glucophage] 1,000 mg PO DAILY PRN 11/13/20 11/13/20 Previous Rx's Medication Instructions Recorded Apixaban [Eliquis] 5 mg PO BID #180 tab 02/15/19 carvediloL [Coreg] 3.125 mg PO BID #180 tablet 02/16/19 Allergies Allergy/AdvReac Type Severity Reaction Status Date / Time Zvepwbx-Qdt-Por Reductase AdvReac FACIAL Verified 11/13/20 10:22 Inhibitor NUMBNESS SEAFOOD Allergy Rash/Hives Uncoded 11/13/20 09:35 Review of Systems ROS Statement: Those systems with pertinent positive or pertinent negative responses have been documented in the HPI. ROS Other: All systems not noted in ROS Statement are negative. Past Medical History Past Medical History: Heart Failure, Diabetes Mellitus, Hyperlipidemia, Hypertension, Musculoskeletal Disorder, Sleep Apnea/CPAP/BIPAP, Thyroid Disorder Additional Past Medical History / Comment(s): Hx steroid induced gluacoma- (resolved), neurosarcoidosis, sarcoidosis, eczema, hx bells palsy with right facial droop, concussion age 12 stated has some learning disablity-problems with spelling., MS, graves disease, " 7 auto immune diseases", DDD., C-pap machine, states "weakness all over"., states diarrhea and occasional blood in stool., pt states she is scheduled to have tooth pulled 05/16/20 History of Any Multi-Drug Resistant Organisms: None Reported Past Surgical History: AICD, Cholecystectomy Additional Past Surgical History / Comment(s): 02/13/20-VENOGRAM W/CINEFLUROSCOPY. Past Anesthesia/Blood Transfusion Reactions: No Reported Reaction Additional Past Anesthesia/Blood Transfusion Reaction / Comment(s): claustrophoba Type of Cardiac Device: AICD Device Placement Date:: february 2019, Past Psychological History: ADD/ADHD, Anxiety, Depression Smoking Status: Never smoker Past Alcohol Use History: None Reported Past Drug Use History: None Reported - Past Family History Mother Family Medical History: AFIB, Deep Vein Thrombosis (DVT) Father Family Medical History: Osteoarthritis (OA), Thyroid Disorder General Exam - General Exam Comments Initial Comments: GENERAL: Patient is well-developed and well-nourished. Patient is nontoxic and well- hydrated and is in mild distress. ENT: Neck is soft and supple. No significant lymphadenopathy is noted. Oropharynx is clear. Moist mucous membranes. Neck has full range of motion without eliciting any pain. EYES: The sclera were anicteric and conjunctiva were pink and moist. Extraocular movements were intact and pupils were equal round and reactive to light. Eyelids were unremarkable. PULMONARY: Unlabored respirations. Good breath sounds bilaterally. No audible rales rhonchi or wheezing was noted. CARDIOVASCULAR: There is a regular rate and rhythm without any murmurs gallops or rubs. Femoral pulses are equal bilaterally ABDOMEN: Soft and nontender with normal bowel sounds. SKIN: Skin is clear with no lesions or rashes and otherwise unremarkable. NEUROLOGIC: Patient is alert and oriented x3. Cranial nerves II through XII are grossly intact. Motor and sensory are also intact. Normal speech, volume and content. Symmetrical smile. MUSCULOSKELETAL: Normal extremities with adequate strength and full range of motion. No lower extremity swelling or edema. No calf tenderness. LYMPHATICS: No significant lymphadenopathy is noted PSYCHIATRIC: Normal psychiatric evaluation. Limitations: no limitations Course Vital Signs 11/13/20 09:29 Temperature 97.3 F L Pulse Rate 60 Respiratory 18 Rate Blood Pressure 174/94 O2 Sat by Pulse 96 Oximetry Medical Decision Making - Medical Decision Making EKG shows a paced rhythm at 60 bpm GA interval is 96 dresses 152 every T intervals 534 QTC is 534. There is no ST segment elevation. Chest x-ray shows a questionable infiltrate however the patient is not exhibiting any signs of pneumonia and the white count was normal as no fever. Patient did not get started on heparin because she is already on eliquis. I spoke with Dr. Shoemaker he agreed to admit the patient admitted the patient I wrote admitting orders. - Lab Data Result diagrams: 11/13/20 09:51 11/13/20 09:51 Lab Results 11/13/20 11/13/20 11/13/20 Range/Units 09:51 09:51 09:51 WBC 8.9 (3.8-10.6) k/uL RBC 4.99 (3.80-5.40) m/uL Hgb 14.9 (11.4-16.0) gm/dL Hct 44.0 (34.0-46.0) % MCV 88.2 (80.0-100.0) fL MCH 29.9 (25.0-35.0) pg MCHC 33.9 (31.0-37.0) g/dL RDW 13.3 (11.5-15.5) % Plt Count 196 (150-450) k/uL MPV 9.2 Neutrophils % 70 % Lymphocytes % 19 % Monocytes % 6 % Eosinophils % 3 % Basophils % 1 % Neutrophils # 6.2 (1.3-7.7) k/uL Lymphocytes # 1.7 (1.0-4.8) k/uL Monocytes # 0.5 (0-1.0) k/uL Eosinophils # 0.2 (0-0.7) k/uL Basophils # 0.1 (0-0.2) k/uL PT 10.1 (9.0-12.0) sec INR 0.9 (<1.2) APTT 25.8 (22.0-30.0) sec Sodium 139 (137-145) mmol/L Potassium 4.5 (3.5-5.1) mmol/L Chloride 103 (98-107) mmol/L Carbon Dioxide 26 (22-30) mmol/L Anion Gap 10 mmol/L BUN 14 (7-17) mg/dL Creatinine 0.56 (0.52-1.04) mg/dL Est GFR (CKD-EPI)AfAm >90 (>60 ml/min/1.73 sqM) Est GFR (CKD-EPI)NonAf >90 (>60 ml/min/1.73 sqM) Glucose 156 H (74-99) mg/dL Calcium 9.4 (8.4-10.2) mg/dL Magnesium 1.7 (1.6-2.3) mg/dL Total Bilirubin 0.7 (0.2-1.3) mg/dL AST 21 (14-36) U/L ALT 12 (4-34) U/L Alkaline Phosphatase 96 (38-126) U/L Troponin I (0.000-0.034) ng/mL Total Protein 8.0 (6.3-8.2) g/dL Albumin 4.3 (3.5-5.0) g/dL 11/13/20 Range/Units 09:51 WBC (3.8-10.6) k/uL RBC (3.80-5.40) m/uL Hgb (11.4-16.0) gm/dL Hct (34.0-46.0) % MCV (80.0-100.0) fL MCH (25.0-35.0) pg MCHC (31.0-37.0) g/dL RDW (11.5-15.5) % Plt Count (150-450) k/uL MPV Neutrophils % % Lymphocytes % % Monocytes % % Eosinophils % % Basophils % % Neutrophils # (1.3-7.7) k/uL Lymphocytes # (1.0-4.8) k/uL Monocytes # (0-1.0) k/uL Eosinophils # (0-0.7) k/uL Basophils # (0-0.2) k/uL PT (9.0-12.0) sec INR (<1.2) APTT (22.0-30.0) sec Sodium (137-145) mmol/L Potassium (3.5-5.1) mmol/L Chloride (98-107) mmol/L Carbon Dioxide (22-30) mmol/L Anion Gap mmol/L BUN (7-17) mg/dL Creatinine (0.52-1.04) mg/dL Est GFR (CKD-EPI)AfAm (>60 ml/min/1.73 sqM) Est GFR (CKD-EPI)NonAf (>60 ml/min/1.73 sqM) Glucose (74-99) mg/dL Calcium (8.4-10.2) mg/dL Magnesium (1.6-2.3) mg/dL Total Bilirubin (0.2-1.3) mg/dL AST (14-36) U/L ALT (4-34) U/L Alkaline Phosphatase (38-126) U/L Troponin I 0.061 H* (0.000-0.034) ng/mL Total Protein (6.3-8.2) g/dL Albumin (3.5-5.0) g/dL Disposition Clinical Impression: Acute non-ST elevation myocardial infarction (NSTEMI) Disposition: ADMITTED IP TO THIS HOSP Referrals: Costa Falcon [Primary Care Provider] - 1-2 days Time of Disposition: 12:01
[2020-11-13 10:19] LABS: Basophils # (A) 0.1 k/uL (0-0.2); Basophils % (A) 1 %; Eosinophils # (A) 0.2 k/uL (0-0.7); Eosinophils % (A) 3 %; HGB 14.9 gm/dL (11.4-16.0); Lymphocytes # (A) 1.7 k/uL (1.0-4.8); Lymphocytes % (A) 19 %; MCH 29.9 pg (25.0-35.0); MCHC 33.9 g/dL (31.0-37.0); MCV 88.2 fL (80.0-100.0); Mean Platelet Volume 9.2; Monocytes # (A) 0.5 k/uL (0-1.0); Monocytes % (A) 6 %; Neutrophils # (A) 6.2 k/uL (1.3-7.7); Neutrophils % (A) 70 %; Platelet Count 196 k/uL (150-450); RBC 4.99 m/uL (3.80-5.40); RDW 13.3 % (11.5-15.5); WBC 8.9 k/uL (3.8-10.6)
[2020-11-13 10:22] LABS: Potassium 4.5 mmol/L (3.5-5.1)
[2020-11-13 10:24] LABS: ALT 12 U/L (4-34); AST 21 U/L (14-36); African American GFR (CKD) >90 (>60 ml/min/1.73 sqM); Albumin 4.3 g/dL (3.5-5.0); Alkaline Phosphatase 96 U/L (38-126); Anion Gap 10 mmol/L; Blood Urea Nitrogen 14 mg/dL (7-17); Calcium 9.4 mg/dL (8.4-10.2); Carbon Dioxide 26 mmol/L (22-30); Chloride 103 mmol/L (98-107); Glucose 156 mg/dL (74-99); Magnesium 1.7 mg/dL (1.6-2.3); Non-African American GFR(CKD) >90 (>60 ml/min/1.73 sqM); Sodium 139 mmol/L (137-145); Total Bilirubin 0.7 mg/dL (0.2-1.3)
[2020-11-13] MEDS: NITROGLYCERIN OINT 1 INCH/GM PACKET TOPICAL STA ×2 (10:37→10:44)
[2020-11-13 10:42] LABS: INR 0.9 (<1.2); Partial Thromboplastin Time 25.8 sec (22.0-30.0); Prothrombin Time 10.1 sec (9.0-12.0)
--- NOTE | 2020-11-13 10:59 | XR ---
EXAMINATION TYPE: XR chest 2V DATE OF EXAM: 11/13/2020 COMPARISON: 02/16/2020 INDICATION: Chest pain TECHNIQUE: Frontal and lateral views of the chest are obtained. FINDINGS: The heart size is mild the prominent. The pulmonary vasculature is normal. Mild right lower lobe infiltrate is present. Correlate for atelectasis and pneumonia. Follow-up can b e performed as clinically indicated. IMPRESSION: 1. Mild right lower lobe infiltrate.
[2020-11-13] MEDS ORDERED: HEPARIN SODIUM 1,000 UN/ML (10ML VL) IV ONE (11:57)
[2020-11-13] MEDS ORDERED: HEPARIN SOD,PORK IN 0.45% NACL 25,000 UNIT in 0.45% NACL 1 250ML.BAG IV SCH (12:00)
[2020-11-13] MEDS ORDERED: NITROGLYCERIN SL TABS 0.4 MG TAB SUBLINGUAL PRN (12:02)
--- NOTE | 2020-11-13 13:54 | P.HPIM ---
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 Patient said that her pain started around 2 in the morning after she had an argument with family members and was very upset. She said that pain was in the middle of her chest and was sharp in nature relating 10 out of 10 in severity. The pain lasted a few minutes and subsided. She was evaluated in the ER and 12-lead EKG showed no acute ischemic changes. Initial troponin was slightly elevated and patient will be placed on observation for further management. Patient denies any chest pain at the time of my evaluation in the ER. She said that she takes her medication as prescribed. She is on anticoagulation with Eliquis Review of Systems Review of system: 14 points review of systems were obtained and were negative except to what were mentioned in the HPI. Past Medical History Past Medical History: Heart Failure, Diabetes Mellitus, Hyperlipidemia, Hypertension, Musculoskeletal Disorder, Sleep Apnea/CPAP/BIPAP, Thyroid Disorder Additional Past Medical History / Comment(s): Hx steroid induced gluacoma- (resolved), neurosarcoidosis, sarcoidosis, eczema, hx bells palsy with right fa cial droop, concussion age 12 stated has some learning disablity-problems with spelling., MS, graves disease, " 7 auto immune diseases", DDD., C-pap machine, states "weakness all over"., states diarrhea and occasional blood in stool., pt states she is scheduled to have tooth pulled 05/16/20 History of Any Multi-Drug Resistant Organisms: None Reported Past Surgical History: AICD, Cholecystectomy Additional Past Surgical History / Comment(s): 02/13/20-VENOGRAM W/CINEFLUROSCOPY. Past Anesthesia/Blood Transfusion Reactions: No Reported Reaction Additional Past Anesthesia/Blood Transfusion Reaction / Comment(s): claustrophoba Type of Cardiac Device: AICD Device Placement Date:: february 2019, Past Psychological History: ADD/ADHD, Anxiety, Depression Smoking Status: Never smoker Past Alcohol Use History: None Reported Past Drug Use History: None Reported - Past Family History Mother Family Medical History: AFIB, Deep Vein Thrombosis (DVT) Father Family Medical History: Osteoarthritis (OA), Thyroid Disorder Medications and Allergies Home Medications Medication Instructions Recorded Confirmed Type metFORMIN HCL [Glucophage] 500 mg PO BID 11/10/17 11/13/20 History Ezetimibe [Zetia] 10 mg PO HS 10/06/18 11/13/20 History Apixaban [Eliquis] 5 mg PO BID #180 tab 02/15/19 11/13/20 Rx carvediloL [Coreg] 3.125 mg PO BID #180 tablet 02/16/19 11/13/20 Rx PARoxetine HCL 30 mg PO DAILY 06/23/19 11/13/20 History Artificial Tears-Hypromellose 1 drops BOTH EYES TID PRN 11/13/20 11/13/20 History [Artificial Tear Drops] Latanoprost [Xalatan 0.005%] 1 drop BOTH EYES HS 11/13/20 11/13/20 History Levothyroxine Sodium [Synthroid] 175 mcg PO DAILY 11/13/20 11/13/20 History metFORMIN HCL [Glucophage] 1,000 mg PO DAILY PRN 11/13/20 11/13/20 History Allergies Allergy/AdvReac Type Severity Reaction Status Date / Time Iaggkmr-Poa-Soy Reductase AdvReac FACIAL Verified 11/13/20 10:22 Inhibitor NUMBNESS SEAFOOD Allergy Rash/Hives Uncoded 11/13/20 09:35 Physical Exam Vitals: Vital Signs Temp Pulse Resp BP Pulse Ox 11/13/20 09:29 97.3 F L 60 18 174/94 96 Intake and Output 11/12/20 11/13/20 11/13/20 22:59 06:59 14:59 Other: Weight 129.274 kg General: The patient is awake and alert, in no distress Eye: there is normal conjunctiva bilaterally. Neck: The neck is supple, there is no JVD. Cardiovascular: Normal S1-S2, no S3-S4, no murmurs. Respiratory: Lungs clear to auscultation bilaterally Gastrointestinal: Abdomen is soft, nontender Musculoskeletal: There is no pedal edema. Neurological:. Speech is normal. Skin: Skin is warm and dry Results CBC & Chem 7: 11/13/20 09:51 11/13/20 09:51 Labs: Abnormal Lab Results - Last 24 Hours (Table) 11/13/20 11/13/20 Range/Units 09:51 09:51 Glucose 156 H (74-99) mg/dL Troponin I 0.061 H* (0.000-0.034) ng/mL Assessment and Plan Assessment: This is a 45-year-old female with past medical history noted below who presented to the emergency room with chest pain. Patient was evaluated in the ER and p laced in observation for further management of her medical problems below 1. Chest pain, non-STEMI versus troponin leak. We will continue telemetry monitoring and trend troponin. Cardiology consulted for further evaluation. Patient is on anticoagulation with Eliquis. She was started on aspirin as well. She has ALLERGY to statins and maintained on ezetimibe 2. Underlying cardiomyopathy with known EF of 40-45%, status post pacemaker implantation, on anticoagulation with Eliquis 3. Type 2 diabetes, hold metformin and continue sliding scale insulin 4. Morbid obesity
[2020-11-13] MEDS: NITROGLYCERIN OINT 1 INCH/GM PACKET TOPICAL SCH (19:03)
[2020-11-13 19:07] LABS: Glucose,Whole Blood 95 mg/dL (75-99)
[2020-11-13] MEDS: INSULIN ASPART (NovoLOG) 100 UNIT/ML VIAL SQ SCH ×2 (19:07→20:26)
[2020-11-13 19:39] LABS: Glucose,Whole Blood 108 mg/dL (75-99)
[2020-11-13] MEDS: APIXABAN 5 MG TAB PO SCH (20:31)
[2020-11-13] MEDS: carvediloL 3.125 MG TAB PO SCH (20:31)
[2020-11-13] MEDS: LATANOPROST 0.005% OPHTH DROPS 2.5 ML BTL BOTH EYES SCH (20:52)
[2020-11-13] MEDS: EZETIMIBE 10 MG TAB PO SCH (20:52)
[2020-11-13] MEDS: ACETAMINOPHEN TAB 325 MG TAB PO PRN (22:52)
[2020-11-14] MEDS: NITROGLYCERIN OINT 1 INCH/GM PACKET TOPICAL SCH ×2 (00:09→06:32)
[2020-11-14 06:08] LABS: Glucose,Whole Blood 130 mg/dL (75-99)
[2020-11-14] MEDS: INSULIN ASPART (NovoLOG) 100 UNIT/ML VIAL SQ SCH ×4 (06:29→20:39)
[2020-11-14] MEDS: LEVOTHYROXINE 88 MCG TAB PO SCH (06:31)
[2020-11-14] MEDS: carvediloL 3.125 MG TAB PO SCH ×2 (06:31→17:46)
[2020-11-14 08:56] LABS: HCT 42.1 % (34.0-46.0); MCH 29.6 pg (25.0-35.0); MCHC 33.2 g/dL (31.0-37.0); MCV 89.2 fL (80.0-100.0); Mean Platelet Volume 8.7; Platelet Count 175 k/uL (150-450); RBC 4.72 m/uL (3.80-5.40); RDW 13.4 % (11.5-15.5)
[2020-11-14] MEDS ORDERED: ASPIRIN 81 MG PO SCH (09:00)
[2020-11-14] MEDS ORDERED: ASPIRIN 325 MG TAB PO SCH (09:00)
[2020-11-14 09:18] LABS: African American GFR (CKD) >90 (>60 ml/min/1.73 sqM); Anion Gap 7 mmol/L; Blood Urea Nitrogen 15 mg/dL (7-17); Calcium 9.1 mg/dL (8.4-10.2); Carbon Dioxide 30 mmol/L (22-30); Chloride 102 mmol/L (98-107); Glucose 135 mg/dL (74-99); Non-African American GFR(CKD) >90 (>60 ml/min/1.73 sqM); Potassium 4.5 mmol/L (3.5-5.1); Sodium 139 mmol/L (137-145)
[2020-11-14] MEDS: ACETAMINOPHEN TAB 325 MG TAB PO PRN (09:41)
[2020-11-14] MEDS: APIXABAN 5 MG TAB PO SCH (09:41)
[2020-11-14] MEDS: ARTIFICIAL TEARS-HYPROMELLOSE DROPS 15 ML BTL BOTH EYES PRN (10:48)
[2020-11-14] MEDS: PARoxetine 10 MG TAB PO SCH (10:48)
[2020-11-14] MEDS ORDERED: ALPRAZolam 0.25 MG TAB PO PRN (11:30)
[2020-11-14] MEDS ORDERED: ALPRAZolam 0.5 MG TAB PO PRN (11:30)
[2020-11-14] MEDS ORDERED: NITROGLYCERIN SL TABS 0.4 MG TAB SUBLINGUAL PRN (11:30)
[2020-11-14 11:42] LABS: Glucose,Whole Blood 188 mg/dL (75-99)
--- NOTE | 2020-11-14 11:47 | P.CRDCN ---
History of Present Illness Consult date: 11/14/20 History of present illness: HISTORY OF PRESENT ILLNESS: This is a 45 year old female with a past medical history significant for cardiomyopathy with AICD implantation, paroxysmal atrial fibrillation on anticoagulation with Eliquis, diabetes, hypertension, hyperlipidemia, multiple sclerosis, and cardiac sarcoidosis. Patient follows in the office with Dr. Hinojosa. We have been asked to see the patient in consultation for Non-STEMI. Patient examined at the bedside. Patient states yesterday she was under a lot of stress because her 14 year old son was caught by the police chasing a group of kids with a gun. She states the police were at her house looking for the gun when she developed chest pain. She states it was a sharp pain and then she had some burning across her chest. Denies radiation of the pain. She currently denies chest pain or pressure. Denies shortness of breath. Patient had a stress test in 2018 which was negative for ischemia. Patient denies having a previous cardiac catheterization. EKG reveals paced rhythm Chest xray mild right lower lobe infiltrate Laboratory data: WBC 5.0. Hemoglobin 14.0. Platelet count 175. Sodium 139. Potassium 4.5. BUN 15. Creatinine 0.57. Troponin 0.047. 0.041. 0.061. Current home cardiac medications include Coreg 3.125 mg twice a day, Zetia 10 mg daily, Eliquis 5 mg twice a day Most recent echocardiogram obtained in April 2020 revealed ejection fraction 40- 45%. Mild mitral regurgitation. Mild tricuspid regurgitation. REVIEW OF SYSTEMS: At the time of my exam: CONSTITUTIONAL: Denies fever or chills. HEENT: Denies blurred vision, vision changes, or eye pain. Denies hemoptysis CARDIOVASCULAR: Denies chest pain. Denies orthopnea. Denies PND. Denies palpitations RESPIRATORY: Denies shortness of breath. GASTROINTESTINAL: Denies abdominal pain. Denies nausea or vomiting. HEMATOLOGIC: Denies bleeding disorders. GENITOURINARY: Denies any blood in urine. SKIN: Denies pruitis. Denies rash. PHYSICAL EXAM: VITAL SIGNS: Reviewed. GENERAL: Well-developed in no acute distress. HEENT: Head is normocephalic. Pupils are equal, round. Sclerae anicteric. Mucous membranes of the mouth are moist. Neck supple. No JVD or thyromegaly LUNGS: Respirations even and unlabored. Lungs essentially clear to auscultation bilaterally. HEART: Regular rate and rhythm. S1 and S2 heard. ABDOMEN: Soft. Nondistended. Nontender. EXTREMITIES: Normal range of motion. No clubbing or cyanosis. Peripheral pulses intact. No lower extremity edema NEUROLOGIC: Awake and alert. Oriented x 3. ASSESSMENT: Non-STEMI Cardiomyopathy with previous AICD, suspect nonischemic Paroxysmal atrial fibrillation on anticoagulation with Eliquis Cardiac sarcoidosis Hypertension Hyperlipidemia Diabetes mellitus PLAN: Obtain 2-D echo to assess cardiac structure and function Resume home cardiac medications Hold Eliquis tonight and tomorrow morning Patient to undergo cardiac catheterization tomorrow with Dr. Nieto Further recommendations pending patient course Nurse practitioner note has been reviewed by physician. Signing provider agrees with the documented findings, assessment, and plan of care. Past Medical History Past Medical History: Atrial Fibrillation, Heart Failure, Diabetes Mellitus, Hyperlipidemia, Hypertension, Musculoskeletal Disorder, Sleep Apnea/CPAP/BIPAP, Thyroid Disorder Additional Past Medical History / Comment(s): Hx steroid induced gluacoma- (resolved), neurosarcoidosis, sarcoidosis, eczema, hx bells palsy with right facial droop, concussion age 12 stated has some learning disablity-problems with spelling., MS, graves disease, " 7 auto immune diseases", DDD., C-pap machine, states "weakness all over"., states diarrhea and occasional blood in stool., pt states she is scheduled to have tooth pulled 05/16/20. 1 dose of pfizer vaccine states she has 27 lesions on her brain. History of Any Multi-Drug Resistant Organisms: None Reported Past Surgical History: AICD, Cholecystectomy Additional Past Surgical History / Comment(s): 02/13/20-VENOGRAM W/CINEFLUROSCOPY. Past Anesthesia/Blood Transfusion Reactions: No Reported Reaction Additional Past Anesthesia/Blood Transfusion Reaction / Comment(s): claustrophoba Type of Cardiac Device: AICD Device Placement Date:: february 2019, Past Psychological History: ADD/ADHD, Anxiety, Depression Additional Psychological History / Comment(s): hx panic attacks, claustrophobia Smoking Status: Never smoker Past Alcohol Use History: None Reported Past Drug Use History: None Reported - Past Family History Mother Family Medical History: AFIB, Deep Vein Thrombosis (DVT) Father Family Medical History: Osteoarthritis (OA), Thyroid Disorder Medications and Allergies Home Medications Medication Instructions Recorded Confirmed Type metFORMIN HCL [Glucophage] 500 mg PO BID 11/10/17 11/13/20 History Ezetimibe [Zetia] 10 mg PO HS 10/06/18 11/13/20 History Apixaban [Eliquis] 5 mg PO BID #180 tab 02/15/19 11/13/20 Rx carvediloL [Coreg] 3.125 mg PO BID #180 tablet 02/16/19 11/13/20 Rx PARoxetine HCL 30 mg PO DAILY 06/23/19 11/13/20 History Artificial Tears-Hypromellose 1 drops BOTH EYES TID PRN 11/13/20 11/13/20 History [Artificial Tear Drops] Latanoprost [Xalatan 0.005%] 1 drop BOTH EYES HS 11/13/20 11/13/20 History Levothyroxine Sodium [Synthroid] 175 mcg PO DAILY 11/13/20 11/13/20 History metFORMIN HCL [Glucophage] 1,000 mg PO DAILY PRN 11/13/20 11/13/20 History Allergies Allergy/AdvReac Type Severity Reaction Status Date / Time Tsyazxz-Wqq-Gxq Reductase AdvReac FACIAL Verified 11/13/20 10:22 Inhibitor NUMBNESS SEAFOOD Allergy Rash/Hives Uncoded 11/13/20 09:35 Physical Exam Vitals: Vital Signs Temp Pulse Pulse Resp BP BP Pulse Ox 11/14/20 03:40 97.4 F L 60 18 144/75 97 11/13/20 23:58 98.1 F 60 19 155/91 96 11/13/20 20:40 98.1 F 60 20 156/86 94 L 11/13/20 16:00 164/98 97 11/13/20 14:45 83 18 145/74 98 11/13/20 13:49 18 Intake and Output 11/13/20 11/14/20 11/14/20 22:59 06:59 14:59 Intake Total 540 240 0 Balance 540 240 0 Intake: Oral 540 240 0 Other: Voiding Method Toilet Toilet # Voids 1 1 # Bowel Movements 1 Weight 129.274 kg 124.3 kg Results 11/14/20 08:00 11/14/20 08:00 Cardiac Enzymes 11/13/20 11/13/20 11/13/20 Range/Units 09:51 09:51 13:21 AST 21 (14-36) U/L Troponin I 0.061 H* 0.041 H* (0.000-0.034) ng/mL 11/13/20 Range/Units 16:57 AST (14-36) U/L Troponin I 0.047 H* (0.000-0.034) ng/mL Coagulation 11/13/20 Range/Units 09:51 PT 10.1 (9.0-12.0) sec APTT 25.8 (22.0-30.0) sec CBC 11/13/20 11/14/20 Range/Units 09:51 08:00 WBC 8.9 5.0 (3.8-10.6) k/uL RBC 4.99 4.72 (3.80-5.40) m/uL Hgb 14.9 14.0 (11.4-16.0) gm/dL Hct 44.0 42.1 (34.0-46.0) % Plt Count 196 175 (150-450) k/uL Comprehensive Metabolic Panel 11/13/20 11/14/20 Range/Units 09:51 08:00 Sodium 139 139 (137-145) mmol/L Potassium 4.5 4.5 (3.5-5.1) mmol/L Chloride 103 102 (98-107) mmol/L Carbon Dioxide 26 30 (22-30) mmol/L BUN 14 15 (7-17) mg/dL Creatinine 0.56 0.57 (0.52-1.04) mg/dL Glucose 156 H 135 H (74-99) mg/dL Calcium 9.4 9.1 (8.4-10.2) mg/dL AST 21 (14-36) U/L ALT 12 (4-34) U/L Alkaline Phosphatase 96 (38-126) U/L Total Protein 8.0 (6.3-8.2) g/dL Albumin 4.3 (3.5-5.0) g/dL Current Medications Generic Name Dose Route Start Last Admin Trade Name Freq PRN Reason Stop Dose Admin Acetaminophen 650 mg 11/13/20 21:48 11/14/20 09:41 Acetaminophen Tab 325 Mg Tab PO 650 mg Q6HR PRN Administration Fever and/ or Pain Apixaban 5 mg 11/13/20 21:00 11/14/20 09:41 Apixaban 5 Mg Tab PO 5 mg BID JOHN PAUL Administration Protocol Artificial Tears 1 drops 11/13/20 13:48 Artificial Tears-Hypromellose Drops 15 Ml Btl BOTH EYES TID PRN DRY EYES Aspirin 81 mg 11/14/20 09:00 11/14/20 09:41 Aspirin 81 Mg PO 81 mg DAILY JOHN PAUL Administration Carvedilol 3.125 mg 11/13/20 17:30 11/14/20 06:31 Carvedilol 3.125 Mg Tab PO 3.125 mg BID-W/MEALS JOHN PAUL Administration Ezetimibe 10 mg 11/13/20 21:00 11/13/20 20:52 Ezetimibe 10 Mg Tab PO 10 mg HS [facility] Administration Insulin Aspart 0 unit 11/13/20 17:30 11/14/20 06:29 Insulin Aspart (Novolog) 100 Unit/Ml Vial SQ Not Given ACHS [facility] Protocol Latanoprost 1 drops 11/13/20 21:00 11/13/20 20:52 Latanoprost 0.005% Ophth Drops 2.5 Ml Btl BOTH EYES 1 drops HS [facility] Administration Levothyroxine Sodium 176 mcg 11/14/20 06:30 11/14/20 06:31 Levothyroxine 88 Mcg Tab PO 176 mcg DAILY@0630 [facility] Administration Nitroglycerin 0.4 mg 11/13/20 12:02 Nitroglycerin Sl Tabs 0.4 Mg Tab SUBLINGUAL Q5M PRN Chest Pain Paroxetine HCl 30 mg 11/14/20 09:00 Paroxetine 10 Mg Tab PO DAILY [facility] Intake and Output 11/13/20 11/14/20 11/14/20 22:59 06:59 14:59 Intake Total 540 240 0 Balance 540 240 0 Intake: Oral 540 240 0 Other: Voiding Method Toilet Toilet # Voids 1 1 # Bowel Movements 1 Weight 129.274 kg 124.3 kg 11/14/20 08:00 11/14/20 08:00
--- NOTE | 2020-11-14 14:24 | P.PN ---
Subjective Patient was seen and evaluated by me this morning. She was sitting up in the chair. She denies any abdominal pain. No acute events overnight. Objective - Vital Signs Vital signs: Vital Signs Temp 98.0 F 11/14/20 11:12 Pulse 60 11/14/20 11:12 Resp 18 11/14/20 11:12 BP 130/82 11/14/20 11:12 Pulse Ox 96 11/14/20 11:12 Intake & Output 11/13/20 11/14/20 11/14/20 18:59 06:59 18:59 Intake Total 780 240 Balance 780 240 Weight 129.274 kg 124.3 kg Intake: Oral 780 240 Other: Voiding Method Toilet Toilet # Voids 1 2 # Bowel Movements 1 - Exam General: The patient is awake and alert, in no distress Eye: there is normal conjunctiva bilaterally. Neck: The neck is supple, there is no JVD. Cardiovascular: Normal S1-S2, no S3-S4, no murmurs. Respiratory: Lungs clear to auscultation bilaterally Gastrointestinal: Abdomen is soft, nontender Musculoskeletal: There is no pedal edema. Neurological:. Speech is normal. Skin: Skin is warm and dry - Labs CBC & Chem 7: 11/14/20 08:00 11/14/20 08:00 Labs: Abnormal Lab Results - Last 24 Hours (Table) 11/13/20 11/13/20 11/13/20 Range/Units 13:21 16:57 19:36 Glucose (74-99) mg/dL POC Glucose (mg/dL) 108 H (75-99) mg/dL Troponin I 0.041 H* 0.047 H* (0.000-0.034) ng/mL 11/14/20 11/14/20 11/14/20 Range/Units 06:06 08:00 11:41 Glucose 135 H (74-99) mg/dL POC Glucose (mg/dL) 130 H 188 H (75-99) mg/dL Troponin I (0.000-0.034) ng/mL Assessment and Plan Assessment: This is a 45-year-old female with past medical history noted below who presented to the emergency room with chest pain. Patient was evaluated in the ER and placed in observation for further management of her medical problems below 1. Non-STEMI: Cardiology consulted for further evaluation. Plan for left heart catheterization in the morning. Patient is on anticoagulation with Eliquis. She was started on aspirin as well. She has ALLERGY to statins and maintained on ezetimibe 2. Underlying cardiomyopathy with known EF of 40-45%, status post pacemaker implantation, on anticoagulation with Eliquis 3. History of cardiac sarcoidosis 4. Type 2 diabetes, hold metformin and continue sliding scale insulin 5. Morbid obesity
[2020-11-14] MEDS ORDERED: CALCIUM CARBONATE 500 MG CHEWABLE PO PRN (16:00)
[2020-11-14 16:37] LABS: Glucose,Whole Blood 102 mg/dL (75-99)
[2020-11-14 18:52] LABS: Chol/HDL Ratio 5.95 Ratio
[2020-11-14 19:54] LABS: Glucose,Whole Blood 138 mg/dL (75-99)
[2020-11-14] MEDS: EZETIMIBE 10 MG TAB PO SCH (20:38)
[2020-11-14] MEDS: LATANOPROST 0.005% OPHTH DROPS 2.5 ML BTL BOTH EYES SCH (20:39)
[2020-11-14] MEDS: SODIUM CHLORIDE 0.9% 1,000 ML in EMPTY BAG 1 BAG IV SCH (22:57)
[2020-11-15] MEDS: SODIUM CHLORIDE 0.9% 1,000 ML in EMPTY BAG 1 BAG IV SCH ×2 (05:00→17:12)
[2020-11-15] MEDS: LEVOTHYROXINE 88 MCG TAB PO SCH (05:00)
[2020-11-15] MEDS: carvediloL 3.125 MG TAB PO SCH ×2 (05:00→16:52)
[2020-11-15] MEDS: PARoxetine 10 MG TAB PO SCH (05:00)
[2020-11-15] MEDS: ARTIFICIAL TEARS-HYPROMELLOSE DROPS 15 ML BTL BOTH EYES PRN (05:03)
[2020-11-15] MEDS: INSULIN ASPART (NovoLOG) 100 UNIT/ML VIAL SQ SCH ×3 (05:07→16:49)
[2020-11-15 05:09] LABS: Glucose,Whole Blood 124 mg/dL (75-99)
[2020-11-15] MEDS ORDERED: ATORVASTATIN 80 MG TAB PO ONE (06:00)
[2020-11-15] MEDS ORDERED: ASPIRIN 325 MG TAB PO ONE (06:00)
[2020-11-15] MEDS ORDERED: HEPARIN SODIUM,PORCINE 2,500 UNIT in SODIUM CHLORIDE 0.9% 250 ML IRRIGATION PRN (07:00)
[2020-11-15] MEDS ORDERED: HEPARIN SODIUM,PORCINE 10,000 UNIT in SODIUM CHLORIDE 0.9% 1,000 ML IRRIGATION PRN (07:00)
[2020-11-15] MEDS ORDERED: HEPARIN SODIUM 1,000 UN/ML (10ML VL) ONE (07:24)
[2020-11-15] MEDS ORDERED: VERAPAMIL 2.5 MG/ML 2 ML AMP ONE (07:25)
[2020-11-15] MEDS ORDERED: LIDOCAINE 1% INJ 10MG/ML (20 ML MDV) ONE (07:25)
[2020-11-15] MEDS ORDERED: fentaNYL (PF) 50 MCG/ML 2 ML AMP ONE (07:25)
[2020-11-15] MEDS ORDERED: fentaNYL (PF) 50 MCG/ML 2 ML AMP IV ONE (07:47)
[2020-11-15] MEDS ORDERED: IV FLUID CONTINUATION 700 ML IV ONE (07:47)
[2020-11-15] MEDS ORDERED: LIDOCAINE 1% INJ 10MG/ML (20 ML MDV) SQ ONE (07:55)
[2020-11-15] MEDS ORDERED: VERAPAMIL SYRINGE (5 MG/10 ML) INTRAARTER ONE (07:57)
[2020-11-15] MEDS ORDERED: HEPARIN SODIUM 1,000 UN/ML (10ML VL) IV ONE (08:02)
[2020-11-15] MEDS ORDERED: IOPAMIDOL-370 125ML BTL INJ ONE (08:09)
[2020-11-15] MEDS ORDERED: RX INFO: IV CONTRAST WAS GIVEN 1 EACH MISC MISCELLANE PRN (08:19)
[2020-11-15] MEDS ORDERED: SODIUM CHLORIDE 0.9% 1,000 ML IV SCH (08:30)
[2020-11-15 08:48] VITALS: RESP 16
--- NOTE | 2020-11-15 08:58 | CC ---
CARDIAC CATHETERIZATION REPORT Mrs Tran is a 45-year-old female with a known history of paroxysmal atrial fibrillation, history of nonischemic cardiomyopathy in the past, who presented with symptoms of chest discomfort with mild troponin elevation. She was evaluated by Dr. Hinojosa. Recommendation made regarding cardiac catheterization. The procedure as well as the risks and the complications were discussed with the patient who is in full understanding and agreement. PROCEDURE: Patient was brought to research laboratory specialist in a fasting semi-sedated state after receiving fentanyl and Benadryl and achieving moderate conscious sedated state. Using Xylocaine anesthesia and Seldinger technique a 6-Armenian sheath was introduced in the right radial artery. Selective right and left coronary angiography performed using 5-Armenian 3.5 bend right and left Judkin's catheter. Multiple views of the coronary artery including hemiaxial views were obtained. Following that, a 5-Armenian tight pigtail catheter was introduced into the left ventricle and a 30-degree BERMUDEZ view of the left ventricle was obtained. Following that, catheter and sheath were removed. Hemostasis was obtained with deployment of TR band. There was no immediate complication. Patient was returned to room in stable condition. Of note, the patient received 5000 units of intravenous heparin as well as intra-arterial verapamil. FINDINGS: LEFT MAIN: This is a large-sized vessel bifurcating into left circumflex, left anterior descending coronary artery, left main coronary artery has no evidence of high- grade stenosis LEFT ANTERIOR DESCENDING CORONARY ARTERY: This is a large-sized vessel reaching to the apex with a wraparound apex segment giving rise to a large diagonal branch proximally. The left anterior descending artery as well as branches have no evidence of obstructive coronary artery disease. LEFT CIRCUMFLEX: This is a nondominant vessel, large in caliber giving rise to a large obtuse marginal branch that has no evidence of high-grade stenosis. RIGHT CORONARY ARTERY: This is a large dominant vessel that has a posterior takeoff. The right coronary artery bifurcates distally into PDA and posterolateral segment branches and has no evidence of high-grade stenosis. LEFT VENTRICULOGRAM: Left ventriculogram was performed in 30-degree BERMUDEZ view and revealed a global hypokinesis, more noted at the base and the ejection fraction was noted to be 40-45 percent. There was no significant mitral regurgitation. HEMODYNAMICS: There was no gradient across the aortic valve. The left ventricular end- diastolic pressure was 20-25 mmHg. CONCLUSION: 1. Normal coronary arteries. 2. Moderately impaired left ventricular systolic function. RECOMMENDATIONS: In view of findings and anatomy, I recommend continued medical therapy with aggressive coronary risk factor modifications that have been initiated. Those findings and recommendations were discussed with the patient who is in full understanding and agreement. Duration of sedation is 18 minutes. VALERIANO / GARTH: [id number] / MTDD
[2020-11-15 11:59] LABS: Glucose,Whole Blood 117 mg/dL (75-99)
--- NOTE | 2020-11-15 12:44 | ECHOF ---
Referral Reason:abnormal trops, CP, hx of cardiomyopathy MEASUREMENTS -------- HEIGHT: 167.6 cm WEIGHT: 124.3 kg BP: 144/75 RVIDd: 3.0 cm (< 3.3) IVSd: 1.6 cm (0.6 - 1.1) LVIDd: 5.7 cm (3.9 - 5.3) LVPWd: 1.5 cm (0.6 - 1.1) IVSs: 2.0 cm LVIDs: 4.6 cm LVPWs: 2.0 cm LA Diam: 3.4 cm (2.7 - 3.8) LAESV Index (A-L): 27.03 ml/m Ao Diam: 3.5 cm (2.0 - 3.7) AV Cusp: 1.8 cm (1.5 - 2.6) MV EXCURSION: 7.375 mm (> 18.000) MV EF SLOPE: 24 mm/s (70 - 150) EPSS: 0.3 cm MV E Ming: 0.71 m/s MV DecT: 353 ms MV A Ming: 0.52 m/s MV E/A Ratio: 1.36 RAP: 5.00 mmHg RVSP: 49.82 mmHg FINDINGS -------- Paced rhythm. AICD This was a technically difficult study with suboptimal views. The left ventricle is mildly dilated. There is moderate concentric left ventricular hypertrophy. Overall left ventricular systolic function is low-normal with, an EF between 50 - 55 %. The right ventricle is normal in size. Normal LA size by volume 22+/-6 ml/m2. The right atrium is normal in size. 5 ml of Lumason was utilized for enhancement of images. The aortic valve is trileaflet, and appears structurally normal. No aortic stenosis or regurgitation. There is trace to mild mitral regurgitation. Mild tricuspid regurgitation present. There is moderate pulmonary hypertension. The right ventric ular systolic pressure, as measured by Doppler, is 49.82mmHg. The pulmonic valve was not well visualized. The aortic root size is normal. IVC Not well visulized. There is no pericardial effusion. CONCLUSIONS -------- 1. There is moderate concentric left ventricular hypertrophy. 2. Overall left ventricular systolic function is low-normal with, an EF between 50 - 55 %. 3. 5 ml of Lumason was utilized for enhancement of images. 4. The aortic valve is trileaflet, and appears structurally normal. No aortic stenosis or regurgitati on. 5. There is trace to mild mitral regurgitation. 6. Mild tricuspid regurgitation present. 7. There is moderate pulmonary hypertension. 8. The right ventricular systolic pressure, as measured by Doppler, is 49.82mmHg. 9. There is no pericardial effusion. PHOTOGRAPHIC LITHOGRAPHER: Crystal Soto RDCS
--- NOTE | 2020-11-15 16:16 | P.DS ---
Providers Date of admission: 11/13/20 12:02 Expected date of discharge: 11/15/20 Attending physician: Rayray Shoemaker Consults: 11/13/20 12:02 Consult Physician Urgent Consulting Provider: [facility] Consult Reason/Comments: Non-STEMI Do you want consulting provider notified?: Yes Primary care physician: [facility] Course: This is a 45-year-old female with past medical history noted below who presented to the emergency room with chest pain. Patient was evaluated in the ER and placed in observation for further management of her medical problems below 1. Chest pain, atypical in nature. Slight elevation in troponin on presentation probably secondary to non-thrombotic troponin leak. Patient was seen and evaluated by cardiology. She underwent left heart catheterization showing normal coronary arteries. Patient has an ALLERGY to statins. Continue medical management otherwise. 2. Underlying cardiomyopathy with known EF of 40-45%, status post pacemaker implantation, on anticoagulation with Eliquis 3. History of cardiac sarcoidosis 4. Type 2 diabetes 5. Morbid obesity Patient will be discharged home in a stable condition. Follow-up in the office as directed General: The patient is awake and alert, in no distress Eye: there is normal conjunctiva bilaterally. Neck: The neck is supple, there is no JVD. Cardiovascular: Normal S1-S2, no S3-S4, no murmurs. Respiratory: Lungs clear to auscultation bilaterally Gastrointestinal: Abdomen is soft, nontender Musculoskeletal: There is no pedal edema. Neurological:. Speech is normal. Skin: Skin is warm and dry Plan - Discharge Summary Discharge Rx Participant: No New Discharge Prescriptions: Continue metFORMIN HCL [Glucophage] 500 mg PO BID Ezetimibe [Zetia] 10 mg PO HS Apixaban [Eliquis] 5 mg PO BID #180 tab carvediloL [Coreg] 3.125 mg PO BID #180 tablet PARoxetine HCL 30 mg PO DAILY metFORMIN HCL [Glucophage] 1,000 mg PO DAILY PRN PRN Reason: Blood Sugar - High Artificial Tears-Hypromellose [Artificial Tear Drops] 1 drops BOTH EYES TID PRN PRN Reason: DRY EYES Levothyroxine Sodium [Synthroid] 175 mcg PO DAILY Latanoprost [Xalatan 0.005%] 1 drop BOTH EYES HS Discharge Medication List metFORMIN HCL [Glucophage] 500 mg PO BID 11/10/17 [History] Ezetimibe [Zetia] 10 mg PO HS 10/06/18 [History] Apixaban [Eliquis] 5 mg PO BID #180 tab 02/15/19 [Rx] carvediloL [Coreg] 3.125 mg PO BID #180 tablet 02/16/19 [Rx] PARoxetine HCL 30 mg PO DAILY 06/23/19 [History] Artificial Tears-Hypromellose [Artificial Tear Drops] 1 drops BOTH EYES TID PRN 11/13/20 [History] Latanoprost [Xalatan 0.005%] 1 drop BOTH EYES HS 11/13/20 [History] Levothyroxine Sodium [Synthroid] 175 mcg PO DAILY 11/13/20 [History] metFORMIN HCL [Glucophage] 1,000 mg PO DAILY PRN 11/13/20 [History] Follow up Appointment(s)/Referral(s): Pritesh Nieto MD [STAFF PHYSICIAN] - 1 Week [facility] Falcon [Primary Care Provider] - 1-2 days Discharge Disposition: HOME SELF-CARE
[2020-11-15 16:29] VITALS: BP 155/96; PULSE 60; TEMP 97.9
[2020-11-15 16:36] LABS: Glucose,Whole Blood 131 mg/dL (75-99)
[2020-11-15] MEDS ORDERED: APIXABAN 5 MG TAB PO SCH (21:00)
[2020-11-16] MEDS ORDERED: ASPIRIN 81 MG PO SCH (09:00)
== END 2020-11-15 18:27 | disposition home or self-care (01) ==
LOC: EC 09:25 → 3SCARD 12:02 → INTOOBSV 12:02 → 3SCARD 13:33 → UNDODISIN 11-15 18:27
PROVIDERS: ADMIT Internal Medicine; ATTEND Internal Medicine
PROC: B2151ZZ Fluoroscopy of Left Heart using Low Osmolar Contrast (ICD-10-PCS; 2020-11-15)
PROC: B2111ZZ Fluoroscopy of Multiple Coronary Arteries using Low Osmolar Contrast (ICD-10-PCS; 2020-11-15)
PROC: 4A023N7 Measurement of Cardiac Sampling and Pressure, Left Heart, Percutaneous Approach (ICD-10-PCS; principal; 2020-11-15 07:30)
DX: R07.89 Other chest pain (principal); I42.9 Cardiomyopathy, unspecified; I11.0 Hypertensive heart disease with heart failure; D86.85 Sarcoid myocarditis; I48.0 Paroxysmal atrial fibrillation; G35 Multiple sclerosis; R79.89 Other specified abnormal findings of blood chemistry; D86.9 Sarcoidosis, unspecified; E11.9 Type 2 diabetes mellitus without complications; E78.00 Pure hypercholesterolemia, unspecified; I08.1 Rheumatic disorders of both mitral and tricuspid valves; I27.20 Pulmonary hypertension, unspecified; R91.8 Other nonspecific abnormal finding of lung field; E78.5 Hyperlipidemia, unspecified; F41.0 Panic disorder [episodic paroxysmal anxiety]; F32.9 Major depressive disorder, single episode, unspecified; F41.9 Anxiety disorder, unspecified; E66.01 Morbid (severe) obesity due to excess calories; Z68.42 Body mass index [BMI] 45.0-49.9, adult; L30.9 Dermatitis, unspecified; G47.30 Sleep apnea, unspecified; F40.240 Claustrophobia; Z20.822 Contact with and (suspected) exposure to COVID-19; Z79.01 Long term (current) use of anticoagulants; Z79.84 Long term (current) use of oral hypoglycemic drugs; Z79.890 Hormone replacement therapy; Z79.899 Other long term (current) drug therapy; Z95.810 Presence of automatic (implantable) cardiac defibrillator; Z88.8 Allergy status to other drugs, medicaments and biological substances; Z91.013 Allergy to seafood; Z90.49 Acquired absence of other specified parts of digestive tract; Z86.69 Personal history of other diseases of the nervous system and sense organs; Z87.820 Personal history of traumatic brain injury; Z82.49 Family history of ischemic heart disease and other diseases of the circulatory system; Z82.61 Family history of arthritis; Z83.49 Family history of other endocrine, nutritional and metabolic diseases
CPT/HCPCS: 96374; 99285; 36415; 93005; 93458; 80061; 80053; 80048; 83735; 84484; 85025; 85027; 85610; 85730; 87635; 71046; G0378 ×3; C8929; C1894; C1769; J2060; J2001; J3010; J1644; Q9950; Q9967; 93306

== ENCOUNTER 2021-03-11 09:56 | Day surgery (SDC) | payer OTHER ==
[2021-03-06 14:45] VITALS: BMI 45.1
[2021-03-11 10:47] LABS: Glucose,Whole Blood 160 mg/dL (75-99)
[2021-03-11 10:49] VITALS: TEMP 96.2
[2021-03-11] MEDS: LACTATED RINGERS 1,000 ML IV SCH ×2 (10:50→11:03)
--- NOTE | 2021-03-11 11:16 | P.GSHP ---
History of Present Illness H&P Date: 03/11/21 Chief Complaint: GERD, GI bleed This is a 45-year-old female who presents today for EGD and colonoscopy. Patient cholecystitis and GERD and GI bleed. Past Medical History Past Medical History: Atrial Fibrillation, Heart Failure, Diabetes Mellitus, Hyperlipidemia, Hypertension, Myocardial Infarction (AK), Musculoskeletal Disorder, Sleep Apnea/CPAP/BIPAP, Thyroid Disorder Additional Past Medical History / Comment(s): Hx steroid induced gluacoma- (resolved), neurosarcoidosis, sarcoidosis, eczema, hx bells palsy with right facial droop, concussion age 12 stated has some learning disablity-problems with spelling., MS, graves disease, " 7 auto immune diseases", DDD., C-pap machine, states "weakness all over"., states diarrhea and occasional blood in stool., pt states she is scheduled to have tooth pulled 05/16/20. 1 dose of QuVIS vaccine states she has 27 lesions on her brain. "INTERMITTENT GI BLEED" AND PROBLEMS SWALLOWING Last Myocardial Infarction Date:: 11/15/20 History of Any Multi-Drug Resistant Organisms: None Reported Past Surgical History: AICD, Cholecystectomy, Heart Catheterization Additional Past Surgical History / Comment(s): 02/13/20-VENOGRAM W/CINEFLUROSCOPY. Past Anesthesia/Blood Transfusion Reactions: No Reported Reaction Additional Past Anesthesia/Blood Transfusion Reaction / Comment(s): claustrophoba Type of Cardiac Device: AICD Device Placement Date:: february 2019, Smoking Status: Never smoker - Past Family History Mother Family Medical History: AFIB, Deep Vein Thrombosis (DVT) Father Family Medical History: Osteoarthritis (OA), Thyroid Disorder Medications and Allergies Home Medications Medication Instructions Recorded Confirmed Type metFORMIN HCL [Glucophage] 500 mg PO BID 11/10/17 03/11/21 History Ezetimibe [Zetia] 10 mg PO HS 10/06/18 03/11/21 History Apixaban [Eliquis] 5 mg PO BID #180 tab 02/15/19 03/11/21 Rx carvediloL [Coreg] 3.125 mg PO BID #180 tablet 02/16/19 03/11/21 Rx PARoxetine HCL 30 mg PO DAILY 06/23/19 03/11/21 History Artificial Tears-Hypromellose 1 drops BOTH EYES TID PRN 11/13/20 03/11/21 History [Artificial Tear Drops] metFORMIN HCL [Glucophage] 1,000 mg PO DAILY PRN 11/13/20 03/11/21 History Levothyroxine Sodium 200 mcg PO DAILY 03/06/21 03/11/21 History Allergies Allergy/AdvReac Type Severity Reaction Status Date / Time [id number] Reductase AdvReac FACIAL Verified 03/11/21 10:37 Inhibitor NUMBNESS [Hsbwuhh-Yfb-Uyr Reductase Inhibitor] SEAFOOD Allergy Rash/Hives Uncoded 03/11/21 10:37 Surgical - Exam Vital Signs Temp Pulse Resp BP Pulse Ox 96.2 F L 60 20 125/68 95 03/11/21 10:41 03/11/21 10:41 03/11/21 10:41 03/11/21 10:41 03/11/21 10:41 - General well developed, well nourished, no distress - Eyes PERRL - ENT normal pinna - Neck no masses - Respiratory normal expansion - Cardiovascular Rhythm: regular - Abdomen Abdomen: soft, non tender Results - Labs Abnormal Lab Results - Last 24 Hours (Table) 03/11/21 Range/Units 10:45 POC Glucose (mg/dL) 160 H (75-99) mg/dL Assessment and Plan Assessment: GERD, GI bleed. We'll perform EGD and colonoscopy.
--- NOTE | 2021-03-11 11:33 | P.OP ---
Date of Procedure: 03/11/21 Preoperative Diagnosis: GERD GI bleed Postoperative Diagnosis: Antral gastritis Normal colon Procedure(s) Performed: EGD Colonoscopy Anesthesia: MAC Surgeon: Bharath Torres Pathology: other (Antrum) Condition: stable Disposition: PACU Description of Procedure: The patient's placed on the endoscopy table in the lateral position. She received IV sedation. Digital rectal exam was performed which revealed no abnormalities. Flexible colonoscope was then placed patient anus passed throughout the entire colon. The ileocecal valve was visualized. Cecum, ascending and transverse colon appeared normal. In the descending colon was a few scattered diverticula. Scope was withdrawn back the sigmoid colon was normal. Scope was withdrawn into the rectum was normal. Scope withdrawn for patient. Next the gastro-is placed into the oropharynx. Scope was placed through the esophagus and stomach and then through the pylorus into the duodenum. The first and second portion of the duodenum appeared normal. Scope was then brought back the antrum this was minimal inflamed. A biopsies performed. The scope was then retroflexed and the remainder the stomach appeared normal. The GE junction was at 40 cm. The distal esophagus appeared over the proximal esophagus appeared normal. Scope withdrawn for patient.
[2021-03-11 11:53] VITALS: PULSE 60
[2021-03-11 12:26] VITALS: BP 118/77; RESP 18
== END 2021-03-11 12:28 | disposition home or self-care (01) ==
LOC: ORWHC2ENDO 09:56
PROVIDERS: ATTEND Surgery
DX: K29.70 Gastritis, unspecified, without bleeding (principal); K21.01 Gastro-esophageal reflux disease with esophagitis, with bleeding; I48.91 Unspecified atrial fibrillation; E11.9 Type 2 diabetes mellitus without complications; I25.2 Old myocardial infarction; E78.5 Hyperlipidemia, unspecified; I11.0 Hypertensive heart disease with heart failure; I50.9 Heart failure, unspecified; Z82.49 Family history of ischemic heart disease and other diseases of the circulatory system
CPT/HCPCS: 43239; 45378; 81025; 88305

== ENCOUNTER → 2021-03-21 | Outpatient (CLI) | payer OTHER ==
--- NOTE | 2021-03-21 12:43 | XR ---
EXAMINATION TYPE: XR chest 2V DATE OF EXAM: 03/21/2021 COMPARISON: CXR from 11/13/2020. HISTORY: SOB. Productive cough. Congestion. TECHNIQUE: Frontal and lateral views of the chest are obtained. FINDINGS: There is persistent cardiomegaly with multi lead pacemaker/defibrillator. New right middl e lobe opacity confirmed on 2 views significant volume shift.. No pleural effusion or pneumothorax se en bilaterally. The osseous structures are intact. IMPRESSION: New right middle lobe opacity consistent with pneumonic consolidation and/or atelectasis . Progress study advised.
== END | disposition home or self-care (01) ==
LOC: RADXRMAIN 12:12
PROVIDERS: ATTEND Family Medicine
DX: R91.8 Other nonspecific abnormal finding of lung field (principal)
CPT/HCPCS: 71046

== ENCOUNTER → 2021-05-20 | Outpatient (CLI) | payer OTHER ==
[2021-05-20 17:20] LABS: African American GFR (CKD) >90 (>60 ml/min/1.73 sqM); Blood Urea Nitrogen 12 mg/dL (7-17); Non-African American GFR(CKD) >90 (>60 ml/min/1.73 sqM)
--- NOTE | 2021-05-20 21:55 | CT ---
EXAMINATION TYPE: CT chest w con DATE OF EXAM: 05/20/2021 COMPARISON: CT dated 11/30/2019 HISTORY: Sarcoidosis. CT DLP: 646.2 mGycm Automated exposure control for dose reduction was used. TECHNIQUE: CT scan of the chest is performed with IV Contrast, patient injected with 100ml mL of Isovue 300. FINDINGS: LUNGS: Thick infiltration is seen at the central portion of the right upper lobe as well as the middl e lobe with multiple variable sized right-sided nodules most evident seen in the middle lobe, associa yasemin with groundglass opacities and middle lobe septal thickening, not appreciated in November 2019 CT scan. Associated bilateral perihilar soft tissue thickening, slightly progressed compared to the prev ious CT scan and probably related to the known sarcoidosis however underlying neoplastic process denis ot be excluded. Minimal nodules are seen in the upper lobes and right lower lobe. Patent trachea and main bronchi. Attenuated caliber of the middle lobe bronchi with loss of volume. No pleural effusion. MEDIASTINUM: Large mediastinal lymph nodes, stable compared to the previous CT scan and likely relate d to the known sarcoidosis. No axillary lymphadenopathy. Left ventricular dilatation, please correlat e with echocardiographic results. No sizable pericardial effusion. Left upper chest wall triple lead pacemaker. The pulmonary trunk measures 3.6 cm which may suggest pulmonary hypertension. OTHER: Upper abdominal gastrohepatic, nichole hepatis, portacaval, celiac and retroperitoneal lymph no kailee. A preaortic lymph node measures 2 cm compared to 9 mm previously. The remainder of the upper abd omen lymph nodes are grossly stable. No gross aggressive bone lesion. IMPRESSION: Thick infiltration in the middle lobe with septal thickening and significant nodularity, new compared to the previous CT scan as detailed above. Slightly more prominent perihilar soft tissue thickening more on the right side with obliteration of the middle lobe bronchus. These changes could be related to the known sarcoidosis however underlying neoplastic process cannot be excluded. Recommend clinical correlation, pulmonology consultation and further workup. Further PET scan assessment can be conside red. Other findings as described above.
== END | disposition home or self-care (01) ==
LOC: RADCTMAIN 16:47
PROVIDERS: ATTEND Internal Medicine Critical Care Medicine
DX: R91.8 Other nonspecific abnormal finding of lung field (principal)
CPT/HCPCS: 82565; 84520; 71260; 36415; Q9967

== ENCOUNTER 2021-06-27 10:50 | Day surgery (SDC) | payer OTHER ==
[2021-06-26 08:51] VITALS: BMI 42.9
[~2021-06-27 10:50] MED LIST changes: +ALBUTEROL NEB (CONC) 2.5 MG/0.5 ML INHALATION ONE; +LIDOCAINE 2% (PF) 20 MG/ML 5 ML VIAL INHALATION ONE; +LIDOCAINE VISCOUS 300 MG/15 ML CUP MUCOUS MEM ONE; -SODIUM CHLORIDE 0.9% 1,000 ML IV SCH; -ceFAZolin 1 GM in SODIUM CHLORIDE 0.9% 250 ML IRRIGATION PRN
[2021-06-27 11:20] LABS: Glucose,Whole Blood 130 mg/dL (75-99)
[2021-06-27] MEDS ORDERED: PHENYLEPHRINE-0.9% NACL SYG 1,000 MCG/10 ML SYRINGE ONE (12:01)
[2021-06-27] MEDS ORDERED: MIDAZOLAM 2 MG/2 ML VIAL ONE (12:01)
[2021-06-27] MEDS ORDERED: ROCURONIUM 10 MG/ML (5 ML VIAL) IV ONE (12:01)
[2021-06-27] MEDS ORDERED: PROPOFOL 10 MG/ML 20 ML VIAL IV ONE (12:01)
[2021-06-27] MEDS ORDERED: LIDOCAINE 2% INJ 20 MG/ML (2 ML VIAL) ONE (12:01)
[2021-06-27] MEDS ORDERED: fentaNYL (PF) 50 MCG/ML 2 ML AMP ONE (12:01)
[2021-06-27] MEDS ORDERED: SUGAMMADEX SODIUM 200 MG/2 ML SDV IV ONE (12:01)
[2021-06-27] MEDS ORDERED: ONDANSETRON 4 MG/2 ML VIAL ONE (12:01)
--- NOTE | 2021-06-27 12:59 | FL ---
EXAMINATION TYPE: FL bronchoscopy DATE OF EXAM: 06/27/2021 CLINICAL HISTORY: Endoscopy TECHNIQUE: Fluoroscopy. COMPARISON: None. FINDINGS: Fluoroscopic guidance was provided during procedure performed.. A total of 63 seconds of fluoroscopic time was utilized during the procedure and 2 spot images was acquired. IMPRESSION: As Above.
--- NOTE | 2021-06-27 13:01 | P.PCN ---
Date of Procedure: 06/27/21 Preoperative Diagnosis: Right middle lobe pulmonary infiltrate Postoperative Diagnosis: 1 history of sarcoidosis 2 narrowing of the right middle lobe bronchus without any endobronchial lesions 3 no sizable mediastinal lymphadenopathy on EBUS examination Procedure(s) Performed: 1 Flexible bronchoscopy 2 Transbronchial biopsy and bronchialveor lavage of the right middle lobe 3 EBUS bronchoscopy and examination of the mediastinal lymph nodes Anesthesia: GETA Surgeon: Valentín Sow Fisher Net #1: Smiley Taylor Estimated Blood Loss (ml): 0 Pathology: other Condition: stable Disposition: same day Operative Findings: This flexible bronchoscopy was done to establish diagnoses a firm diagnosis of ongoing pulmonary sarcoidosis. The patient has been expressing worsening shortness of breath. Most recent CAT scan of the chest that was done on 05/20 showed infiltration seen in the central portion of the right upper lobe as well as the right middle lobe along with right-sided nodular pulmonary densities more so in the right middle lobe area with areas of groundglass pulmonary infiltrates and right middle lobe septal thickening and these were not seen in earlier CAT scans of the chest. At the same time, there was evidence of bronchial narrowing at the level of the right middle lobe bronchus. As for the mediastinum, mediastinal lymph nodes were seen. We will compared to the earlier CAT scan of the findings were stable. This procedure was done and the endoscopy suite. The patient was intubated and placed on a mechanical ventilator in the usual fashion by anesthesia. The patient was intubated by #8 endotracheal tube. Following that, an adapter was attached to the ET tube and the flexible bronchoscope was introduced for airway inspection. Distal trachea was within normal limits. The bilateral mainstem bronchi were patent within normal limits. Right upper lobe bronchus was slightly narrowed. The 3 different segments of the right upper lobe were adequately visualized. Bronchus intermedius was patent. The right middle lobe bronchus was significantly narrowed and there was no endobronchial lesion. There was some mucosal inflammation causing narrowing of the airway and I was able to identify the medial and lateral segment of low. The right lower lobe bronchus and its 5 segments were patent. Examination of left side was also within normal limits. At this point, the bronchoscope was directed to be right middle lobe and the bronchioloalveolar lavage of the right middle lobe was done. A total of 100 mL of fluid was infused and 20 cc was aspirated. The BAL was nonbloody. Following that, under fluoroscopic guidance, transbronchial biopsies of the medial and lateral segment of the right middle lobe was done. A total of 8-10 biopsies were obtained without any complications. No endobronchial bleeding was encountered. The bronchoscope was removed. Endobronchial ultrasound was utilized to evaluate this patient's mediastinum. The different stages of lymph nodes within the mediastinum was examined and there was no sizable lymph node identified. The largest LN was about 6 mm in size and the right paratracheal station, 4R location. Nevertheless, this was not accessible for biopsy. After a careful inspection, the EBUS bronchoscope Was Removed. The patient was extubated and transferred to Recovery in stable condition. Chest X-Rays to follow up to rule out pneumothorax.
[2021-06-27] MEDS ORDERED: SODIUM CHLORIDE 0.9% 500 ML 500 ML IV ONE (13:29)
[2021-06-27 13:40] VITALS: TEMP 97
--- NOTE | 2021-06-27 14:39 | XR ---
EXAMINATION TYPE: XR chest 1V DATE OF EXAM: 06/27/2021 COMPARISON: 03/21/2021 HISTORY: 45-year-old female postbronchoscopy TECHNIQUE: Single frontal view of the chest is obtained. FINDINGS: Left anterior chest wall ICD generator with right atrial, right ventricular, and coronary sinus leads . The exam is motion limited. Heart remains enlarged. Continued focal opacity involving the lower half of the right lung. There is a curvilinear edge projecting across the right apex adjacent to 9 mm from the apical margin. Possible skin fold. Unable to exclude a small apical pneumothorax at this time especially in the set ting of endobronchial biopsy. Short interval follow-up in the expiratory phase recommended. Motion sh ould be minimized IMPRESSION: 1. Equivocal between a skinfold and small right apical pneumothorax measuring 9 mm. Recommend short i nterval follow-up in the expiratory phase. Motion should be minimized. 2. Continued cardiomegaly and abnormal opacity within the lower half of the right lung.
[2021-06-27 14:53] VITALS: RESP 18
[2021-06-27 15:20] VITALS: BP 124/78; PULSE 69
[2021-06-29 00:39] LABS: Appearance,BF Bloody
== END 2021-06-27 15:38 | disposition home or self-care (01) ==
LOC: ORWHC2ENDO 10:50
PROVIDERS: ATTEND Internal Medicine Critical Care Medicine
DX: J40 Bronchitis, not specified as acute or chronic (principal); I11.0 Hypertensive heart disease with heart failure; I50.9 Heart failure, unspecified; E11.9 Type 2 diabetes mellitus without complications; I48.0 Paroxysmal atrial fibrillation; E03.9 Hypothyroidism, unspecified; G35 Multiple sclerosis; G47.33 Obstructive sleep apnea (adult) (pediatric); G51.0 Bell's palsy; Z95.0 Presence of cardiac pacemaker; Z87.09 Personal history of other diseases of the respiratory system; Z86.73 Personal history of transient ischemic attack (TIA), and cerebral infarction without residual deficits; Z87.898 Personal history of other specified conditions; Z90.49 Acquired absence of other specified parts of digestive tract; Z79.01 Long term (current) use of anticoagulants; Z79.84 Long term (current) use of oral hypoglycemic drugs; Z79.890 Hormone replacement therapy; Z79.899 Other long term (current) drug therapy; Z88.8 Allergy status to other drugs, medicaments and biological substances; Z91.013 Allergy to seafood
CPT/HCPCS: 88108; 88305; 89050; 88312; 87252; 87070; 87205; 87116; 87102; 87206; 71045; 31628; 31624; 31652; J2250; J2405; J3010; J2370; J2704; J2001

== ENCOUNTER 2021-07-01 18:44 | Inpatient (IN) | payer OTHER ==
[2021-07-01 19:47] LABS: Basophils # (A) 0.1 k/uL (0-0.2); Basophils % (A) 1 %; Eosinophils # (A) 0.3 k/uL (0-0.7); Eosinophils % (A) 2 %; HCT 46.1 % (34.0-46.0); HGB 14.5 gm/dL (11.4-16.0); Lymphocytes # (A) 1.3 k/uL (1.0-4.8); Lymphocytes % (A) 11 %; MCH 27.8 pg (25.0-35.0); MCHC 31.5 g/dL (31.0-37.0); MCV 88.2 fL (80.0-100.0); Mean Platelet Volume 9.2; Monocytes # (A) 0.7 k/uL (0-1.0); Monocytes % (A) 5 %; Neutrophils # (A) 9.9 k/uL (1.3-7.7); Neutrophils % (A) 80 %; Platelet Count 224 k/uL (150-450); RBC 5.22 m/uL (3.80-5.40); RDW 14.4 % (11.5-15.5); WBC 12.4 k/uL (3.8-10.6)
[2021-07-01 19:57] LABS: ALT 18 U/L (4-34); AST 22 U/L (14-36); African American GFR (CKD) >90 (>60 ml/min/1.73 sqM); Albumin 4.3 g/dL (3.5-5.0); Alkaline Phosphatase 87 U/L (38-126); Anion Gap 10 mmol/L; Blood Urea Nitrogen 14 mg/dL (7-17); Calcium 9.2 mg/dL (8.4-10.2); Carbon Dioxide 29 mmol/L (22-30); Chloride 101 mmol/L (98-107); Glucose 175 mg/dL (74-99); Magnesium 1.6 mg/dL (1.6-2.3); Non-African American GFR(CKD) >90 (>60 ml/min/1.73 sqM); Potassium 4.1 mmol/L (3.5-5.1); Sodium 140 mmol/L (137-145); Total Bilirubin 1.2 mg/dL (0.2-1.3); Total Protein 7.8 g/dL (6.3-8.2)
[2021-07-01 20:00] LABS: Prothrombin Time 11.1 sec (9.0-12.0)
--- NOTE | 2021-07-01 20:00 | XR ---
EXAMINATION TYPE: XR chest 2V DATE OF EXAM: 07/01/2021 COMPARISON: 06/27/2021 HISTORY: Difficulty breathing TECHNIQUE: 2 views FINDINGS: Heart is enlarged. There is airspace consolidation in the right middle lobe. No pneumothora x. Trachea is midline. There is left axillary pacemaker. There is some mild interstitial infiltrate a lso in the left lower lobe. IMPRESSION: Right middle lobe consolidation consistent with pneumonia. There is clearing of the small right-sided pneumothorax compared to old exam. Interstitial pneumonia left lower lobe. Pulmonary inf iltrates not significantly different than recent exam.
--- NOTE | 2021-07-01 21:14 | ED ---
SOB HPI - General Chief Complaint: Shortness of Breath Stated Complaint: SOB Time Seen by Provider: 07/01/21 19:11 Source: patient Mode of arrival: wheelchair Limitations: no limitations - History of Present Illness Initial Comments: 45-year-old female with past medical history of A. fib on Eliquis, diabetes, congestive heart failure, hypertension and presents emergency room with shortness of breath. Reports to me that she had "6 months of pneumonia". She was recently bronched on the by Dr. Sow because of this and has yet to receive results. Concern was for cancer or sarcoid. Patient denies to me that she has been diagnosed with sarcoid of the lungs. States she does not have home oxygen as insurance refused it. Over the past several days has had increased in the production of her sputum. Has had some hemoptysis. Has been unable to use breathing treatments at home as she does not have the tubing. She was off of her Eliquis for the bronchoscopy and therefore is concerned for PE. Denies chest pain. No other alleviating, precipitating or modifying factors - Related Data Home Medications Medication Instructions Recorded Confirmed metFORMIN HCL [Glucophage] 1,000 mg PO BID-W/MEALS 11/10/17 07/07/21 Ezetimibe [Zetia] 10 mg PO DAILY 10/06/18 07/07/21 PARoxetine HCL 30 mg PO DAILY 06/23/19 07/07/21 Artificial Tears-Hypromellose 1 drop BOTH EYES TID PRN 11/13/20 07/07/21 [Artificial Tear Drops] Albuterol Inhaler [Ventolin Hfa 2 puff INHALATION RT-Q4H PRN 06/26/21 07/07/21 Inhaler] Acetaminophen [Tylenol] 1,000 mg PO Q4-6H PRN 07/01/21 07/07/21 Latanoprost/Pf [Latanoprost 0.005% 1 drop RIGHT EYE HS 07/01/21 07/07/21 Eye Drop] Levothyroxine Sodium [Synthroid] 175 mcg PO DAILY 07/01/21 07/07/21 Amoxic-Pot Clav 875-125Mg 1 tab PO Q12H 07/07/21 07/07/21 [Augmentin 875-125] Previous Rx's Medication Instructions Recorded Apixaban [Eliquis] 5 mg PO BID #180 tab 02/15/19 carvediloL [Coreg] 3.125 mg PO BID #180 tablet 02/16/19 Furosemide [Lasix] 40 mg PO DAILY #30 tablet 07/05/21 glipiZIDE [Glucotrol] 5 mg PO AC-BRKFST #30 tab 07/05/21 guaiFENesin-Coden 100-10MG/5ML 10 ml PO TID PRN #1000 ml 07/05/21 [Robitussin AC] predniSONE 50 mg PO DAILY #30 tab 07/05/21 Allergies Allergy/AdvReac Type Severity Reaction Status Date / Time Yeolmwv-IZS-PpM Reductase AdvReac FACIAL Verified 07/07/21 20:28 Inhibitor NUMBNESS [Lmvqskd-Fyq-Maw Reductase Inhibitor] SEAFOOD Allergy Rash/Hives Uncoded 07/07/21 16:23 Review of Systems ROS Statement: Those systems with pertinent positive or pertinent negative responses have been documented in the HPI. ROS Other: All systems not noted in ROS Statement are negative. Past Medical History Past Medical History: Atrial Fibrillation, Diabetes Mellitus, GI Bleed, Hyperlipidemia, Hypertension, Myocardial Infarction ([place]), Musculoskeletal Disorder, Pneumonia, Skin Disorder, Sleep Apnea/CPAP/BIPAP, Thyroid Disorder Additional Past Medical History / Comment(s): "Have had 6 months of walking Pneumonia". Hx steroid induced gluacoma(resolved). Neurosarcoidosis, sarcoidosis which caused heart problems. Eczema. Hx [place] Palsy with right facial droop. Hx concussion at age 12, has some learning disablity-problems with spelling. MS. Graves Disease, " 7 auto immune diseases". DDD. CPAP use. "Weakness all over". Diarrhea and occasional blood in stool. "27 lesions on her brain". "INTERM ITTENT GI BLEED" AND PROBLEMS SWALLOWING. Last Myocardial Infarction Date:: 11/15/20 History of Any Multi-Drug Resistant Organisms: None Reported Past Surgical History: AICD, Cholecystectomy, Heart Catheterization Additional Past Surgical History / Comment(s): VENOGRAM W/CINEFLUROSCOPY. Past Anesthesia/Blood Transfusion Reactions: No Reported Reaction Additional Past Anesthesia/Blood Transfusion Reaction / Comment(s): Claustrophobia. Type of Cardiac Device: Permanent Pacemaker, AICD Device Placement Date:: 03/01 Past Psychological History: ADD/ADHD, Anxiety, Depression Smoking Status: Never smoker Past Alcohol Use History: None Reported Past Drug Use History: None Reported - Past Family History Mother Family Medical History: AFIB, Deep Vein Thrombosis (DVT) Father Family Medical History: Osteoarthritis (OA), Thyroid Disorder General Exam Limitations: no limitations General appearance: alert, in no apparent distress Head exam: Present: atraumatic, normocephalic, normal inspection Eye exam: Present: normal appearance, PERRL, EOMI. Absent: scleral icterus, conjunctival injection, periorbital swelling ENT exam: Present: normal exam, mucous membranes moist Neck exam: Present: normal inspection. Absent: tenderness, meningismus, lymph adenopathy Respiratory exam: Present: respiratory distress, wheezes, accessory muscle use, decreased breath sounds, other (conversational dyspnea, tachypnia). Absent: rales, rhonchi, stridor Cardiovascular Exam: Present: regular rate, normal rhythm, normal heart sounds. Absent: systolic murmur, diastolic murmur, rubs, gallop, clicks GI/Abdominal exam: Present: soft, normal bowel sounds. Absent: distended, tenderness, guarding, rebound, rigid Extremities exam: Present: normal inspection, full ROM, normal capillary refill. Absent: tenderness, pedal edema, joint swelling, calf tenderness Back exam: Present: normal inspection Neurological exam: Present: alert, oriented X3, CN II-XII intact Psychiatric exam: Present: normal affect, normal mood Skin exam: Present: warm, dry, intact, normal color. Absent: rash Course Vital Signs 07/01/21 07/01/21 07/01/21 18:53 19:33 21:36 Temperature 98.3 F Pulse Rate 70 71 70 Respiratory 32 H 24 22 Rate Blood Pressure 168/110 153/87 153/94 O2 Sat by Pulse 84 L 96 97 Oximetry Fraction of Inspired Oxygen (FIO2) 07/01/21 07/01/21 07/01/21 22:18 22:30 23:01 Temperature Pulse Rate 68 68 65 Respiratory 28 H Rate Blood Pressure 147/87 O2 Sat by Pulse 100 Oximetry Fraction of 70 Inspired Oxygen (FIO2) 07/02/21 07/02/21 07/02/21 00:09 01:36 03:31 Temperature Pulse Rate 70 70 Respiratory 21 Rate Blood Pressure 125/82 O2 Sat by Pulse 98 96 Oximetry Fraction of 70 Inspired Oxygen (FIO2) Medical Decision Making - Medical Decision Making Upon arrival patient is placed in trauma 1. She is hypoxic and therefore placed on 4 L where she is saturating 98%. IV is established laboratory studies were conducted. Lactic acid 2.4. Troponin 0.041. Chest x-ray demonstrates bilateral pulmonary infiltrates. CT is performed which does not demonstrate a pulmonary embolism however there is dense airspace consolidation in the right middle lobe which is progressed. Patchy bilateral pneumonic infiltrates. Patient does have worsening shortness of breath and therefore is placed on BiPAP. She is given a dose of Solu-Medrol and a DuoNeb breathing treatment. Recommended admission for which the patient did agree. Spoke with Dr. Bardales who agreed to admit the patient. Pulmonology will be placed on consult - Lab Data Result diagrams: 07/04/21 09:30 07/04/21 09:30 Lab Results 07/01/21 07/01/21 07/01/21 Range/Units 19:37 19:37 19:37 WBC 12.4 H (3.8-10.6) k/uL RBC 5.22 (3.80-5.40) m/uL Hgb 14.5 (11.4-16.0) gm/dL Hct 46.1 H (34.0-46.0) % MCV 88.2 (80.0-100.0) fL MCH 27.8 (25.0-35.0) pg MCHC 31.5 (31.0-37.0) g/dL RDW 14.4 (11.5-15.5) % Plt Count 224 (150-450) k/uL MPV 9.2 Neutrophils % 80 % Lymphocytes % 11 % Monocytes % 5 % Eosinophils % 2 % Basophils % 1 % Neutrophils # 9.9 H (1.3-7.7) k/uL Lymphocytes # 1.3 (1.0-4.8) k/uL Monocytes # 0.7 (0-1.0) k/uL Eosinophils # 0.3 (0-0.7) k/uL Basophils # 0.1 (0-0.2) k/uL PT 11.1 (9.0-12.0) sec INR 1.0 (<1.2) APTT 25.0 (22.0-30.0) sec Sodium 140 (137-145) mmol/L Potassium 4.1 (3.5-5.1) mmol/L Chloride 101 (98-107) mmol/L Carbon Dioxide 29 (22-30) mmol/L Anion Gap 10 mmol/L BUN 14 (7-17) mg/dL Creatinine 0.65 (0.52-1.04) mg/dL Est GFR (CKD-EPI)AfAm >90 (>60 ml/min/1.73 sqM) Est GFR (CKD-EPI)NonAf >90 (>60 ml/min/1.73 sqM) Glucose 175 H (74-99) mg/dL Lactic Ac Sepsis Rflx Plasma Lactic Acid Raji (0.7-2.0) mmol/L Calcium 9.2 (8.4-10.2) mg/dL Magnesium 1.6 (1.6-2.3) mg/dL Total Bilirubin 1.2 (0.2-1.3) mg/dL AST 22 (14-36) U/L ALT 18 (4-34) U/L Alkaline Phosphatase 87 (38-126) U/L Troponin I (0.000-0.034) ng/mL NT-Pro-B Natriuret Pep pg/mL Total Protein 7.8 (6.3-8.2) g/dL Albumin 4.3 (3.5-5.0) g/dL 07/01/21 07/01/21 07/01/21 Range/Units 19:37 19:37 19:37 WBC (3.8-10.6) k/uL RBC (3.80-5.40) m/uL Hgb (11.4-16.0) gm/dL Hct (34.0-46.0) % MCV (80.0-100.0) fL MCH (25.0-35.0) pg MCHC (31.0-37.0) g/dL RDW (11.5-15.5) % Plt Count (150-450) k/uL MPV Neutrophils % % Lymphocytes % % Monocytes % % Eosinophils % % Basophils % % Neutrophils # (1.3-7.7) k/uL Lymphocytes # (1.0-4.8) k/uL Monocytes # (0-1.0) k/uL Eosinophils # (0-0.7) k/uL Basophils # (0-0.2) k/uL PT (9.0-12.0) sec INR (<1.2) APTT (22.0-30.0) sec Sodium (137-145) mmol/L Potassium (3.5-5.1) mmol/L Chloride (98-107) mmol/L Carbon Dioxide (22-30) mmol/L Anion Gap mmol/L BUN (7-17) mg/dL Creatinine (0.52-1.04) mg/dL Est GFR (CKD-EPI)AfAm (>60 ml/min/1.73 sqM) Est GFR (CKD-EPI)NonAf (>60 ml/min/1.73 sqM) Glucose (74-99) mg/dL Lactic Ac Sepsis Rflx Plasma Lactic Acid Raji 2.4 H* (0.7-2.0) mmol/L Calcium (8.4-10.2) mg/dL Magnesium (1.6-2.3) mg/dL Total Bilirubin (0.2-1.3) mg/dL AST (14-36) U/L ALT (4-34) U/L Alkaline Phosphatase (38-126) U/L Troponin I 0.041 H* (0.000-0.034) ng/mL NT-Pro-B Natriuret Pep 4210 pg/mL Total Protein (6.3-8.2) g/dL Albumin (3.5-5.0) g/dL 07/01/21 Range/Units 20:07 WBC (3.8-10.6) k/uL RBC (3.80-5.40) m/uL Hgb (11.4-16.0) gm/dL Hct (34.0-46.0) % MCV (80.0-100.0) fL MCH (25.0-35.0) pg MCHC (31.0-37.0) g/dL RDW (11.5-15.5) % Plt Count (150-450) k/uL MPV Neutrophils % % Lymphocytes % % Monocytes % % Eosinophils % % Basophils % % Neutrophils # (1.3-7.7) k/uL Lymphocytes # (1.0-4.8) k/uL Monocytes # (0-1.0) k/uL Eosinophils # (0-0.7) k/uL Basophils # (0-0.2) k/uL PT (9.0-12.0) sec INR (<1.2) APTT (22.0-30.0) sec Sodium (137-145) mmol/L Potassium (3.5-5.1) mmol/L Chloride (98-107) mmol/L Carbon Dioxide (22-30) mmol/L Anion Gap mmol/L BUN (7-17) mg/dL Creatinine (0.52-1.04) mg/dL Est GFR (CKD-EPI)AfAm (>60 ml/min/1.73 sqM) Est GFR (CKD-EPI)NonAf (>60 ml/min/1.73 sqM) Glucose (74-99) mg/dL Lactic Ac Sepsis Rflx Y Plasma Lactic Acid Raji (0.7-2.0) mmol/L Calcium (8.4-10.2) mg/dL Magnesium (1.6-2.3) mg/dL Total Bilirubin (0.2-1.3) mg/dL AST (14-36) U/L ALT (4-34) U/L Alkaline Phosphatase (38-126) U/L Troponin I (0.000-0.034) ng/mL NT-Pro-B Natriuret Pep pg/mL Total Protein (6.3-8.2) g/dL Albumin (3.5-5.0) g/dL - EKG Data EKG Comments: EKG demonstrates electronic pacemaker. Rate of 69. QRS 138. QTC 446. Pacemaker captures appropriately. No ST segment elevation Critical Care Time Critical Care Time: Yes Critical Care Time: 32 minutes for bipap dependance Disposition Clinical Impression: Sarcoidosis, Hypoxia, Acute respiratory failure Disposition: ADMITTED IP TO THIS HOSP Condition: Good Is patient prescribed a controlled substance at d/c from ED?: No Time of Disposition: 22:21 Decision to Admit Reason: Admit from EC Decision Date: 07/01/21 Decision Time: 22:21
[2021-07-01] MEDS ORDERED: LORazepam 2 MG/ML INJ IV STA ×2 (21:16→22:23)
--- NOTE | 2021-07-01 21:29 | CT ---
EXAMINATION TYPE: CT chest angio for PE DATE OF EXAM: 07/01/2021 COMPARISON: 05/20/2021 HISTORY: sob, off anticoagulation CT DLP: 958.2 mGycm Automated exposure control for dose reduction was used. CONTRAST: Performed with IV Contrast, patient injected with 100ml mL of Isovue 370. There are 3-D post processed images. There is dense consolidation in the right middle lobe. There is patchy airspace infiltrate in both lo wer lobes. Heart is enlarged. No pericardial effusion. No filling defect seen in the pulmonary arteri es. Thoracic aorta is intact. No aneurysm. No dissection. The thoracic spine is intact. No compression fracture. There is degenerative spurring in the lower th oracic spine. IMPRESSION: There is dense airspace consolidation in the right middle lobe which has progressed compared to old e xam. Patchy bilateral pneumonic infiltrates. No evidence of pulmonary embolism. Cardiomegaly. Tumor not excluded. Patchy bilateral pulmonary infil trates increased compared to old exam.
[2021-07-01] MEDS ORDERED: IPRATROPIUM-ALBUTEROL 3 ML NEB INHALATION STA (22:08)
[2021-07-01] MEDS ORDERED: NALOXONE 0.4 MG/ML 1 ML VIAL IV PRN (22:21)
[2021-07-01] MEDS ORDERED: ACETAMINOPHEN TAB 500 MG TAB PO STA (22:23)
[2021-07-01] MEDS ORDERED: guaiFENesin-Coden 100-10MG/5ML 10 ML CUP PO PRN (22:24)
[2021-07-01] MEDS ORDERED: methylPREDNISolone SOD SUCCI 125 MG/2 ML VIAL IV STA (23:40)
[2021-07-02] MEDS ORDERED: ALBUTEROL NEBULIZED 1.25 MG/3 ML INHALATION PRN (01:24)
--- NOTE | 2021-07-02 01:26 | P.HPIM ---
History of Present Illness H&P Date: 07/02/21 Chief Complaint: dyspnea 45 year old woman with history of sarcoidosis with cardiac involvement and restrictive cardiomyopathy status post AICD, paroxysmal atrial fibrillation, diabetes, hypertension, hyperlipidemia, hypothyroidism, mood disorder who presented for dyspnea. Patient says that over the last week her dyspnea has been getting worse. She also reports a cough with sputum production. She's been under treatment for severe sarcoidosis, is currently seeking a specialist in neurology due to affecting her central nervous system. Patient has been compliant with her medication as advised, however, she has not been taking her Apixiban since she recently had bronchoscopy with biopsy due to right middle lobe consolidation. 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 She presently denies fevers, chills, nausea, vomiting, chest pain, palpitations, abdominal pain, constipation, diarrhea, dysuria, dyschezia, numbness/weakness of extremities. In the emergency room, patient was afebrile, 153/94, 97% on BiPAP 12/5, FiO2 100%, heart rate 70 and paced on EKG. CBC is remarkable for mild leukocytosis at 12.4. Chemistries are remarkable for slightly elevated glucose to 175. LFTs are unremarkable. Lactic acid was 2.4, repeat lactic acid was 1.8. Initial troponin was 0.041. BNP was 4210. Chest x-ray read demonstrates right middle lobe consolidation. Computed tomography scan also reviewed demonstrates dense airspace disease in the right middle lobe as well as shows progression of this disease, there is no evidence of pulmonary embolism, but there was evidence of cardiomegaly as well as patchy bilateral pulmonary infiltrates. EKG shows a ventricular paced rhythm at a rate of 69. All Systems reviewed and pertinent positives and negatives noted in HPI, all other symptoms are negative Gen: awake, alert HEENT: normocephalic, atraumatic, good hearing acuity, moist mucous membranes Resp: good air exchange, breathing comfortably with no accessory muscle use, diffuse coarse crackles CVS: good distal perfusion x 4, regular rate and rhythm GI: soft, NTTP, ND : no SPT, no CVAT, reyes catheter not present MSK: no pitting edema, no clubbing Neuro: non-focal, moving all extremities Psych: cooperative, euthymic mood Labs and imaging reviewed as above Assessment/plan: Acute hypoxemic respiratory failure Acute on chronic failure exacerbation Restrictive cardiomyopathy, EF 40-45% Sarcoidosis -Admit to inpatient, telemetry -Oxygen prn -Cardiology consult, pulmonary consult -DuoNeb's [id number] + albuterol when necessary -Prednisone 40 mg daily -IV Lasix 40 mg daily -Repeat echocardiogram Hypertension Hyperlipidemia Paroxysmal atrial fibrillation Hypothyroidism Mood disorder -Home medications reviewed and reconciled Patient is full code DVT prophylaxis covered with Apixiban Past Medical History Past Medical History: Atrial Fibrillation, Diabetes Mellitus, GI Bleed, Hyperlipidemia, Hypertension, Myocardial Infarction ([place]), Musculoskeletal Disorder, Pneumonia, Skin Disorder, Sleep Apnea/CPAP/BIPAP, Thyroid Disorder Additional Past Medical History / Comment(s): "Have had 6 months of walking Pneumonia". Hx steroid induced gluacoma(resolved). Neurosarcoidosis, sarcoidosis which caused heart problems. Eczema. Hx [place] Palsy with right facial droop. Hx concussion at age 12, has some learning disablity-problems with spelling. MS. Graves Disease, " 7 auto immune diseases". DDD. CPAP use. "Weakness all over". Diarrhea and occasional blood in stool. "27 lesions on her brain". "INTERMITTENT GI BLEED" AND PROBLEMS SWALLOWING. Last Myocardial Infarction Date:: 11/15/20 History of Any Multi-Drug Resistant Organisms: None Reported Past Surgical History: AICD, Cholecystectomy, Heart Catheterization Additional Past Surgical History / Comment(s): VENOGRAM W/CINEFLUROSCOPY. Past Anesthesia/Blood Transfusion Reactions: No Reported Reaction Additional Past Anesthesia/Blood Transfusion Reaction / Comment(s): Claustrophobia. Type of Cardiac Device: Permanent Pacemaker, AICD Device Placement Date:: 03/01 Past Psychological History: ADD/ADHD, Anxiety, Depression Smoking Status: Never smoker Past Alcohol Use History: None Reported Past Drug Use History: None Reported - Past Family History Mother Family Medical History: AFIB, Deep Vein Thrombosis (DVT) Father Family Medical History: Osteoarthritis (OA), Thyroid Disorder Medications and Allergies Home Medications Medication Instructions Recorded Confirmed Type metFORMIN HCL [Glucophage] 1,000 mg PO BID-W/MEALS 11/10/17 07/01/21 History Ezetimibe [Zetia] 10 mg PO DAILY 10/06/18 07/01/21 History Apixaban [Eliquis] 5 mg PO BID #180 tab 02/15/19 07/01/21 Rx carvediloL [Coreg] 3.125 mg PO BID #180 tablet 02/16/19 07/01/21 Rx PARoxetine HCL 30 mg PO DAILY 06/23/19 07/01/21 History Artificial Tears-Hypromellose 1 drops BOTH EYES TID PRN 11/13/20 07/01/21 History [Artificial Tear Drops] Albuterol Inhaler [Ventolin Hfa 2 puff INHALATION RT-Q4H PRN 06/26/21 07/01/21 History Inhaler] Acetaminophen [Tylenol] 1,000 mg PO Q4-6H PRN 07/01/21 07/01/21 History Latanoprost/Pf [Latanoprost 0.005% 1 drop BOTH EYES HS 07/01/21 07/01/21 History Eye Drop] Levothyroxine Sodium [Synthroid] 175 mcg PO DAILY 07/01/21 07/01/21 History predniSONE See Taper PO DIRECTED 07/01/21 07/01/21 History Allergies Allergy/AdvReac Type Severity Reaction Status Date / Time Nevwqml-LVT-BjF Reductase AdvReac FACIAL Verified 07/01/21 21:40 Inhibitor NUMBNESS [Zfqbtvf-Crg-Cpb Reductase Inhibitor] SEAFOOD Allergy Rash/Hives Uncoded 07/01/21 18:56 Physical Exam Osteopathic Statement: *. No significant issues noted on an osteopathic str uctural exam other than those noted in the History and Physical/Consult. Vitals: Vital Signs Temp Pulse Resp BP Pulse Ox FiO2 07/02/21 00:09 70 98 07/01/21 23:01 65 28 H 147/87 100 07/01/21 22:30 68 07/01/21 22:18 68 70 07/01/21 21:36 70 22 153/94 97 07/01/21 19:33 71 24 153/87 96 07/01/21 18:53 98.3 F 70 32 H 168/110 84 L Intake and Output 07/01/21 07/01/21 07/02/21 14:59 22:59 06:59 Other: Weight 122.47 kg Results CBC & Chem 7: 07/01/21 19:37 07/01/21 19:37 Labs: Abnormal Lab Results - Last 24 Hours (Table) 07/01/21 07/01/2107/01/22 Range/Units 19:37 19:37 19:37 WBC 12.4 H (3.8-10.6) k/uL Hct 46.1 H (34.0-46.0) % Neutrophils # 9.9 H (1.3-7.7) k/uL Glucose 175 H (74-99) mg/dL Plasma Lactic Acid Raji 2.4 H* (0.7-2.0) mmol/L Troponin I (0.000-0.034) ng/mL 07/01/21 Range/Units 19:37 WBC (3.8-10.6) k/uL Hct (34.0-46.0) % Neutrophils # (1.3-7.7) k/uL Glucose (74-99) mg/dL Plasma Lactic Acid Raji (0.7-2.0) mmol/L Troponin I 0.041 H* (0.000-0.034) ng/mL
[2021-07-02] MEDS: APIXABAN 5 MG TAB PO SCH ×3 (01:51→22:44)
[2021-07-02] MEDS: carvediloL 3.125 MG TAB PO SCH ×3 (01:51→17:06)
[2021-07-02 03:45] LABS: Basophils % (A) 0 %; Eosinophils % (A) 1 %; HCT 42.4 % (34.0-46.0); HGB 13.6 gm/dL (11.4-16.0); Lymphocytes # (A) 0.6 k/uL (1.0-4.8); Lymphocytes % (A) 7 %; MCH 28.8 pg (25.0-35.0); MCHC 32.2 g/dL (31.0-37.0); MCV 89.5 fL (80.0-100.0); Mean Platelet Volume 9.8; Monocytes # (A) 0.3 k/uL (0-1.0); Monocytes % (A) 3 %; Neutrophils # (A) 7.7 k/uL (1.3-7.7); Neutrophils % (A) 89 %; Platelet Count 158 k/uL (150-450); RBC 4.74 m/uL (3.80-5.40); RDW 14.4 % (11.5-15.5); WBC 8.7 k/uL (3.8-10.6)
[2021-07-02 04:09] LABS: African American GFR (CKD) >90 (>60 ml/min/1.73 sqM); Anion Gap 10 mmol/L; Blood Urea Nitrogen 12 mg/dL (7-17); Calcium 8.6 mg/dL (8.4-10.2); Carbon Dioxide 27 mmol/L (22-30); Chloride 101 mmol/L (98-107); Glucose 165 mg/dL (74-99); Non-African American GFR(CKD) >90 (>60 ml/min/1.73 sqM); Potassium 4.4 mmol/L (3.5-5.1); Sodium 138 mmol/L (137-145)
[2021-07-02] MEDS: IPRATROPIUM-ALBUTEROL 3 ML NEB INHALATION SCH ×6 (04:28→23:58)
[2021-07-02] MEDS ORDERED: ACETAMINOPHEN TAB 500 MG TAB PO PRN (06:00)
[2021-07-02 06:23] LABS: Glucose,Whole Blood 183 mg/dL (75-99)
[2021-07-02] MEDS: LEVOTHYROXINE 88 MCG TAB PO SCH (07:00)
[2021-07-02] MEDS: INSULIN ASPART (NovoLOG) 100 UNIT/ML VIAL SQ SCH ×3 (07:09→17:06)
[2021-07-02 07:23] LABS: Glucose,Whole Blood 175 mg/dL (75-99)
[2021-07-02] MEDS: FUROSEMIDE 10 MG/ML 4 ML VIAL IV SCH (08:55)
[2021-07-02] MEDS ORDERED: ARTIFICIAL TEARS-HYPROMELLOSE DROPS 15 ML BTL BOTH EYES PRN (09:00)
[2021-07-02] MEDS ORDERED: predniSONE 20 MG TAB PO SCH (09:00)
[2021-07-02] MEDS: EZETIMIBE 10 MG TAB PO SCH (09:33)
[2021-07-02] MEDS: PARoxetine 10 MG TAB PO SCH (09:35)
--- NOTE | 2021-07-02 11:01 | P.CNPUL ---
History of Present Illness Consult date: 07/02/21 Reason for consult: dyspnea History of present illness: Is a very pleasant 45-year-old female patient with known history of sarcoidosis. The patient came in to the emergency department yesterday complaining of increased dyspnea, cough and congestion and the patient was bringing up some pinkish tinged sputum. She was getting more short of breath and for that reason she end up coming into the emergency. The CTA of the chest was done in the emergency department and the patient was found to have dense airspace consolidation right middle lobe which had progressed compared to the earlier exam. The patient also had some patchy bilateral pulmonary infiltrates. Knowing this of any pulmonary embolism. The patchy bilateral pulmonary infiltr ates increased compared to the earlier examination for that reason the patient was admitted to the hospital. The patient is well-developed known to me. The patient has history of sarcoidosis. The patient has followed up with me in the office on outpatient basis. 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 In the past, the patient was treated with methotrexate and there was a concern for cardiac sarcoidosis and a cardiac MRI was done and the patient was diagnosed also having a sick sinus syndrome with cardiac pauses and the patient currently has a dual chamber pacer/AICD in place. The patient was being monitored with me closely. Her mediastinal lymphadenopathy has remained stable for quite some time. Subsequently, her condition decompensated and the patient developed worsening shortness of breath, drop in her lung capacity including FVC and FEV1. The follow-up CAT scan of the chest that was done on 05/20/2021 showed thick infiltration the right middle lobe and septal thickening and significant n odularity in the right middle lobe that was new compared to the earlier CAT scans of the chest. I addition, there was slightly more prominent perihilar soft tissue thickness more so on the right with obliteration of the right middle lobe bronchus. This was thought to be related to some background right hilar mediastinal lymphadenopathy. At that point, I performed a bronchoscopy on this patient. I performed the bronchioloalveolar lavage that showed small to be growth. At the same time, has bronchial biopsies of the right middle lobe showed noncaseating granulomas consistent with sarcoidosis. During the bronchoscopy, I noted that the patient's right middle lobe bronchus was quite narrowed. There Liver of airway was estimated to be around 7-8 mm in size. I was barely able to push my bronchoscope into the right middle lobe to visualize a different segments of the right middle lobe including the medial and lateral segments. The biopsies came back positive for sarcoidosis. Her current blood work for now she was a white cell count of 8.7 with a hemoglobin of 13.6. Patient is at 156. Correlation profile is within normal limits. Creatinine is at 12 a creatinine of 0.4. ProBNP level is 4210 and the troponins are 0.04 0.03 and 0.03 respectively 3. Rest of the electrolytes and liver function tests are all within normal limits. The patient was started on Lasix. She is also currently on prednisone 40 mg by mouth on a daily basis. 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, obstructive sleep apnea with an AHI of 16 and the patient has an exudative the compliant to CPAP therapy, chronic systolic heart failure with subsequent echocardiogram showing improvement in ejection fraction with normal coronaries, history of pacemaker/AICD placement, history approximately atrial fibrillation, history of multiple sclerosis Review of Systems Constitutional: Reports fatigue, Reports weakness Eyes: denies as per HPI, denies blurred vision, denies bulging eye, denies decreased vision, denies diplopia, denies discharge, denies dry eye, denies irritation, denies itching, denies pain, denies photophobia, denies loss of peripheral vision, denies loss of vision, denies tunnel vision/blind spots Ears: deny: decreased hearing, ear discharge, earache, tinnitus Ears, nose, mouth and throat: Reports as per HPI Breasts: absent: as per HPI, change in shape, gynecomastia, masses, nipple discharge, pain, skin changes, swelling Breasts: Reports as per HPI Cardiovascular: Reports as per HPI, Reports decreased exercise tolerance, Reports dyspnea on exertion, Reports shortness of breath Respiratory: Reports cough, Reports dyspnea, Reports sleep apnea Gastrointestinal: Reports dyspepsia Genitourinary: Reports as per HPI Menstruation: Reports as per HPI Musculoskeletal: Reports as per HPI Musculoskeletal: absent: ankle pain, ankle stiffness, ankle swelling Integumentary: Reports as per HPI, Reports lesions (skin sarcoid) Psychiatric: Reports as per HPI Endocrine: Reports as per HPI Hematologic/Lymphatic: Reports as per HPI Allergic/Immunologic: Reports as per HPI Past Medical History Past Medical History: Atrial Fibrillation, Diabetes Mellitus, GI Bleed, Hyperlipidemia, Hypertension, Myocardial Infarction ([place]), Musculoskeletal Disorder, Pneumonia, Skin Disorder, Sleep Apnea/CPAP/BIPAP, Thyroid Disorder Additional Past Medical History / Comment(s): Sarcoidosis with cardiac, pulmonary and skin involvement, multiple sclerosis, history of cardiomyopathy with improving and the LV function, normal coronaries, obesity, obstructive sleep apnea, history of pacemaker/AICD placement, diabetes mellitus type 2, hypothyroidism, glaucoma, colonic diverticulosis, history of Escobedo's palsy with right facial droop, history of concussion of the brain, history of learning disability, history of multiple sclerosis, osteoarthritis Last Myocardial Infarction Date:: 11/15/20 History of Any Multi-Drug Resistant Organisms: None Reported Past Surgical History: AICD, Cholecystectomy, Heart Catheterization Additional Past Surgical History / Comment(s): VENOGRAM W/CINEFLUROSCOPY. Past Anesthesia/Blood Transfusion Reactions: No Reported Reaction Additional Past Anesthesia/Blood Transfusion Reaction / Comment(s): Claustrophobia. Type of Cardiac Device: Permanent Pacemaker, AICD Device Placement Date:: 03/01 Past Psychological History: ADD/ADHD, Anxiety, Depression Additional Psychological History / Comment(s): Hx panic attacks. Claustrophobia. Smoking Status: Never smoker Past Alcohol Use History: None Reported Past Drug Use History: None Reported - Past Family History Mother Family Medical History: AFIB, Deep Vein Thrombosis (DVT) Father Family Medical History: Osteoarthritis (OA), Thyroid Disorder Medications and Allergies Home Medications Medication Instructions Recorded Confirmed Type metFORMIN HCL [Glucophage] 1,000 mg PO BID-W/MEALS 11/10/17 07/01/21 History Ezetimibe [Zetia] 10 mg PO DAILY 10/06/18 07/01/21 History Apixaban [Eliquis] 5 mg PO BID #180 tab 02/15/19 07/01/21 Rx carvediloL [Coreg] 3.125 mg PO BID #180 tablet 02/16/19 07/01/21 Rx PARoxetine HCL 30 mg PO DAILY 06/23/19 07/01/21 History Artificial Tears-Hypromellose 1 drops BOTH EYES TID PRN 11/13/20 07/01/21 History [Artificial Tear Drops] Albuterol Inhaler [Ventolin Hfa 2 puff INHALATION RT-Q4H PRN 06/26/21 07/01/21 History Inhaler] Acetaminophen [Tylenol] 1,000 mg PO Q4-6H PRN 07/01/21 07/01/21 History Latanoprost/Pf [Latanoprost 0.005% 1 drop BOTH EYES HS 07/01/21 07/01/21 History Eye Drop] Levothyroxine Sodium [Synthroid] 175 mcg PO DAILY 07/01/21 07/01/21 History predniSONE See Taper PO DIRECTED 07/01/21 07/01/21 History Allergies Allergy/AdvReac Type Severity Reaction Status Date / Time Fsyhlpv-RNQ-WlA Reductase AdvReac FACIAL Verified 07/01/21 21:40 Inhibitor NUMBNESS [Gdxrjvo-Jaa-Qet Reductase Inhibitor] SEAFOOD Allergy Rash/Hives Uncoded 07/01/21 18:56 Physical Exam Vitals: Vital Signs Temp Pulse Pulse Resp BP BP BP 07/02/21 08:28 74 07/02/21 08:15 70 07/02/21 08:00 97.4 F L 69 22 147/96 07/02/21 04:38 62 07/02/21 04:28 63 07/02/21 04:20 97.3 F L 70 23 146/95 153/98 07/02/21 03:31 70 21 125/82 07/02/21 01:36 07/02/21 00:09 70 07/01/21 23:01 65 28 H 147/87 07/01/21 22:30 68 07/01/21 22:18 68 07/01/21 21:36 70 22 153/94 07/01/21 19:33 71 24 153/87 07/01/21 18:53 98.3 F 70 32 H 168/110 Pulse Ox FiO2 07/02/21 08:28 07/02/21 08:15 70 07/02/21 08:00 98 70 07/02/21 04:38 07/02/21 04:28 70 07/02/21 04:20 99 70 07/02/21 03:31 96 07/02/21 01:36 70 07/02/21 00:09 98 07/01/21 23:01 100 07/01/21 22:30 07/01/21 22:18 70 07/01/21 21:36 97 07/01/21 19:33 96 07/01/21 18:53 84 L Intake and Output 05/07/02/21 07/02/21 22:59 06:59 14:59 Other: Voiding Method Bedside Commode Bedside Commode Bedpan Bedpan # Voids 2 Weight 122.47 kg 122.47 kg Gen. appearance obese, comfortable, not in acute distress the patient's breathing is nonlabored and currently she is on O2 at 4 L with a pulse ox of 97% Head exam was generally normal. There was no scleral icterus or corneal arcus. Mucous membranes were moist. Neck was supple and without jugular venous distension, thyromegaly, or carotid bruits. Carotids were easily palpable bilaterally. There was no adenopathy. Lungs sounds are diminished and the patient is scheduled WHEEZES heard throughout the lung his bilaterally. Cardiac exam revealed the PMI to be normally situated and sized. The rhythm was regular and no extrasystoles were noted during several minutes of auscultation. The first and second heart sounds were normal and physiologic splitting of the second heart sound was noted. There were no murmurs, rubs, clicks, or gallops. The patient has a pacemaker/AICD or left anterior chest area. Abdominal exam revealed normal bowel sounds. The abdomen was soft, non-tender, and without masses, organomegaly, or appreciable enlargement of the abdominal aorta. Examination of the extremities revealed easily palpable radial, femoral and pedal pulses. There was no cyanosis, clubbing or edema. The patient has skin lesions related sarcoidosis involving the nasal bridge bilaterally Neurologically, the patient is awake and alert and the patient does not have any focal neurological deficit. Cranial nerves are essentially intact. Results - Laboratory Findings CBC and BMP: 07/02/21 02:58 07/02/21 02:58 PT/INR, D-dimer PT 11.1 sec (9.0-12.0) 07/01/21 19:37 INR 1.0 (<1.2) 07/01/21 19:37 Abnormal lab findings: Abnormal Labs 07/01/21 07/01/21 07/01/21 19:37 19:37 19:37 WBC 12.4 H Hct 46.1 H Neutrophils # 9.9 H Lymphocytes # Creatinine Glucose 175 H POC Glucose (mg/dL) Plasma Lactic Acid Raji 2.4 H* Troponin I 07/01/21 07/02/21 07/02/21 19:37 00:16 02:58 WBC Hct Neutrophils # Lymphocytes # Creatinine Glucose POC Glucose (mg/dL) Plasma Lactic Acid Raji Troponin I 0.041 H* 0.039 H* 0.037 H* 07/02/21 07/02/21 07/02/21 02:58 02:58 06:17 WBC Hct Neutrophils # Lymphocytes # 0.6 L Creatinine 0.47 L Glucose 165 H POC Glucose (mg/dL) 183 H Plasma Lactic Acid Raji Troponin I 07/02/21 07:21 WBC Hct Neutrophils # Lymphocytes # Creatinine Glucose POC Glucose (mg/dL) 175 H Plasma Lactic Acid Raji Troponin I - Diagnostic Findings Chest x-ray: image reviewed CT scan - chest: image reviewed Assessment and Plan Plan: 1 acute on chronic shortness of breath/hypoxemia probably due to progression of pulmonary sarcoidosis and collapse of the right lobe. Patient is post bronchoscopy and bronchial lavage and airway inspection and transbronchial biopsies of the right middle lobe. The patient had significant narrowing of the right middle lobe bronchus which is probably related to sarcoidosis. At the [facility] time transbronchial biopsies of the right middle lobe showed noncaseating there were no murmurs supporting diagnosis of sarcoidosis. No evidence of any microbial growth on the bronchial lavage. 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 Most recent lipid a ejection fraction showed improvement in LV function. Noted the patient has previous history of systolic heart failure 8 proximity atrial fibrillation 9 multiple sclerosis 10 diabetes mellitus type 2 11 hypothyroidism 12 chronic diverticulosis 13 history of Escobedo's palsy Plan I checked the results of the bronchoscopy and lavage. He ever lavage of the right middle lobe was done and there is no microbial growth. Nevertheless, based on the presence of complete right mid lobe atelectasis, I'm going to patient cover the patient with postobstructive pneumonias and give the patient a course of IV Zosyn. We'll check pro-calcitonin level. We'll put the patient IV Solu Medrol treating her acute sarcoidosis. We'll check an angiotensin converting enzyme level. Continue bronchodilators. Allow the patient utilizes her own CPAP machine from home. Repeat an echocardiogram. Daily Lasix. Resume anticoagulants. May consider another bronchoscopy and the evaluation of the right middle lobe. We'll continue to follow.
[2021-07-02] MEDS: methylPREDNISolone SOD SUCCI 125 MG/2 ML VIAL IV SCH ×3 (11:22→22:44)
[2021-07-02] MEDS: PIPERACILLIN-TAZOBACTAM 3.375 GM in SODIUM CHLORIDE 0.9% 100 ML IVPB SCH ×2 (11:23→18:56)
[2021-07-02 11:36] LABS: Glucose,Whole Blood 207 mg/dL (75-99)
--- NOTE | 2021-07-02 11:42 | P.PN ---
Subjective Progress Note Date: 07/02/21 Feels okay today. Continues to be on BiPAP. Family at bedside. Patient denies chest pain or abdominal pain Objective - Vital Signs Vital signs: Vital Signs Temp 97.4 F L 07/02/21 08:00 Pulse 74 07/02/21 08:28 Resp 22 07/02/21 08:00 BP 147/96 07/02/21 08:00 Pulse Ox 98 07/02/21 08:00 FiO2 70 07/02/21 08:15 Intake & Output 07/01/21 07/02/21 07/02/21 18:59 06:59 18:59 Weight 122.47 kg 122.47 kg Other: Voiding Method Bedside Commode Bedside Commode Bedpan Bedpan # Voids 2 - Exam Gen: awake, alert on BiPAP HEENT: normocephalic, atraumatic, good hearing acuity, moist mucous membranes Resp: Decreased breath sounds, no wheezing CVS: good distal perfusion x 4, regular rate and rhythm GI: soft, NTTP, ND MSK: no pitting edema, no clubbing Neuro: non-focal, moving all extremities Psych: cooperative, euthymic mood - Labs CBC & Chem 7: 07/02/21 02:58 07/02/21 02:58 Labs: Abnormal Lab Results - Last 24 Hours (Table) 07/01/21 07/01/21 07/01/21 Range/Units 19:37 19:37 19:37 WBC 12.4 H (3.8-10.6) k/uL Hct 46.1 H (34.0-46.0) % Neutrophils # 9.9 H (1.3-7.7) k/uL Lymphocytes # (1.0-4.8) k/uL Creatinine (0.52-1.04) mg/dL Glucose 175 H (74-99) mg/dL POC Glucose (mg/dL) (75-99) mg/dL Plasma Lactic Acid Raji 2.4 H* (0.7-2.0) mmol/L Troponin I (0.000-0.034) ng/mL 07/01/21 07/02/21 07/02/21 Range/Units 19:37 00:16 02:58 WBC (3.8-10.6) k/uL Hct (34.0-46.0) % Neutrophils # (1.3-7.7) k/uL Lymphocytes # (1.0-4.8) k/uL Creatinine (0.52-1.04) mg/dL Glucose (74-99) mg/dL POC Glucose (mg/dL) (75-99) mg/dL Plasma Lactic Acid Raji (0.7-2.0) mmol/L Troponin I 0.041 H* 0.039 H* 0.037 H* (0.000-0.034) ng/mL 07/02/21 07/02/21 07/02/21 Range/Units 02:58 02:58 06:17 WBC (3.8-10.6) k/uL Hct (34.0-46.0) % Neutrophils # (1.3-7.7) k/uL Lymphocytes # 0.6 L (1.0-4.8) k/uL Creatinine 0.47 L (0.52-1.04) mg/dL Glucose 165 H (74-99) mg/dL POC Glucose (mg/dL) 183 H (75-99) mg/dL Plasma Lactic Acid Raji (0.7-2.0) mmol/L Troponin I (0.000-0.034) ng/mL 07/02/21 Range/Units 07:21 WBC (3.8-10.6) k/uL Hct (34.0-46.0) % Neutrophils # (1.3-7.7) k/uL Lymphocytes # (1.0-4.8) k/uL Creatinine (0.52-1.04) mg/dL Glucose (74-99) mg/dL POC Glucose (mg/dL) 175 H (75-99) mg/dL Plasma Lactic Acid Raji (0.7-2.0) mmol/L Troponin I (0.000-0.034) ng/mL Assessment and Plan Plan: Assessment and plan: Acute hypoxemic respiratory failure and collapse of right lobe: Patient is status post bronchoscopy and bronchial lavage, input. Continues to be on BiPAP. Continues on oxygen and bronchodilators as well as steroids. An IV antibiotics with Zosyn. Plan for speech consult today. Appreciate pulmonology input Acute on chronic failure exacerbation: On IV Lasix, 2-D echo requested. Interrogation for pacemaker. Restrictive cardiomyopathy, EF 40-45% Sarcoidosis Sick sinus syndrome: Pacemaker in place, poor interrogation today. Hypertension Hyperlipidemia Paroxysmal atrial fibrillation Hypothyroidism Mood disorder Diabetes type 2 with hyperglycemia History of Escobedo's palsy History of multiple sclerosis -Home medications reviewed and reconciled Patient is full code DVT prophylaxis covered with Apixiban Treatment plan discussed with the patient and her mother at bedside Disposition: Pending clinical progression, home likely in 2-3 days
--- NOTE | 2021-07-02 12:22 | P.CRDCN ---
History of Present Illness History of present illness: HISTORY OF PRESENT ILLNESS: This is a 45 year old female with a past medical history significant for cardiomyopathy with AICD implantation, paroxysmal atrial fibrillation on anticoagulation with Eliquis, diabetes, hypertension, hyperlipidemia, multiple sclerosis, and cardiac sarcoidosis. Patient follows in the office with Dr. Hinojosa. We have been asked to see the patient in consultation for heart failure. Patient examined at the bedside. Patient had a recent bronchoscopy performed with Dr. James Wan and. She states she has been feeling short of breath since having her bronchoscopy. She denies having any increased lower extremity edema. She states her shortness of breath got so bad yesterday she came to the emergency room for further evaluation. She denies chest pain or pressure. The patient is currently on a BiPAP at 70% FiO2. EKG reveals paced rhythm with underlying atrial flutter Chest xray right middle lobe consolidation consistent with pneumonia. There is clearing of small right-sided pneumothorax compared to exam. Interstitial pneumonia left lower lung. Pulmonary infiltrates not significantly different than recent exam. Laboratory data: WBC 8.7. Hemoglobin 13.6. Platelet count 158. Sodium 138. Potassium 4.4. BUN 12. Creatinine 0.47. Troponin 0.041. 0.039. 0.037. Current home cardiac medications include Eliquis 5 mg twice a day, that he attend milligrams daily, carvedilol 3.125 mg twice a day Most recent echocardiogram obtained in April 2020 revealed ejection fraction 40- 45%. Mild mitral regurgitation. Mild tricuspid regurgitation. Repeat echocardiogram performed in November 2020 revealed ejection fraction 50-55%, trace to mild MR, mild TR, and moderate pulmonary hypertension Patient underwent cardiac catheterization in November 2020 revealing normal coronary arteries REVIEW OF SYSTEMS: At the time of my exam: CONSTITUTIONAL: Denies fever or chills. HEENT: Denies blurred vision, vision changes, or eye pain. Denies hemoptysis CARDIOVASCULAR: Denies chest pain. Denies orthopnea. Denies PND. Denies palpitations RESPIRATORY: + shortness of breath. GASTROINTESTINAL: Denies abdominal pain. Denies nausea or vomiting. HEMATOLOGIC: Denies bleeding disorders. GENITOURINARY: Denies any blood in urine. SKIN: Denies pruitis. Denies rash. PHYSICAL EXAM: VITAL SIGNS: Reviewed. GENERAL: Well-developed in no acute distress. HEENT: Head is normocephalic. Pupils are equal, round. Sclerae anicteric. Mucous membranes of the mouth are moist. Neck supple. No JVD or thyromegaly LUNGS: Respirations even and unlabored. Lungs diminished with expiratory wheezing noted HEART: Regular rate and rhythm. S1 and S2 heard. ABDOMEN: Soft. Nondistended. Nontender. EXTREMITIES: Normal range of motion. No clubbing or cyanosis. Peripheral pulses intact. No lower extremity edema NEUROLOGIC: Awake and alert. Oriented x 3. ASSESSMENT: Acute hypoxic respiratory failure, status post bronchoscopy abnormalities noted of right middle lobe, may be secondary to sarcoidosis per pulmonary, possible pneumonia Abnormal troponins, not suggestive of ACS, flat Nonischemic cardiomyopathy with previous AICD Paroxysmal atrial fibrillation on anticoagulation with Eliquis Cardiac sarcoidosis Hypertension Hyperlipidemia Diabetes mellitus PLAN: Obtain 2D echo to assess cardiac structure and function Interrogate device Resume home cardiac medications Continue IV lasix Pulmonary consulted for evaluation Further recommendations pending patient course Nurse practitioner note has been reviewed by physician. Signing provider agrees with the documented findings, assessment, and plan of care. Past Medical History Past Medical History: Atrial Fibrillation, Diabetes Mellitus, GI Bleed, Hyperlipidemia, Hypertension, Myocardial Infarction (MD), Musculoskeletal Disorder, Pneumonia, Skin Disorder, Sleep Apnea/CPAP/BIPAP, Thyroid Disorder Additional Past Medical History / Comment(s): "Have had 6 months of walking Pneumonia". Hx steroid induced gluacoma(resolved). Neurosarcoidosis, sarcoidosis which caused heart problems. Eczema. Hx [place] Palsy with right facial droop. Hx concussion at age 12, has some learning disablity-problems with spelling. MS. Graves Disease, " 7 auto immune diseases". DDD. CPAP use. "Weakness all over". Diarrhea and occasional blood in stool. "27 lesions on her brain". "INTERMITTENT GI BLEED" AND PROBLEMS SWALLOWING. Last Myocardial Infarction Date:: 11/15/20 History of Any Multi-Drug Resistant Organisms: None Reported Past Surgical History: AICD, Cholecystectomy, Heart Catheterization Additional Past Surgical History / Comment(s): VENOGRAM W/CINEFLUROSCOPY. Past Anesthesia/Blood Transfusion Reactions: No Reported Reaction Additional Past Anesthesia/Blood Transfusion Reaction / Comment(s): Claustrophobia. Type of Cardiac Device: Permanent Pacemaker, AICD Device Placement Date:: 03/01 Past Psychological History: ADD/ADHD, Anxiety, Depression Additional Psychological History / Comment(s): Hx panic attacks. Claustrophobia. Smoking Status: Never smoker Past Alcohol Use History: None Reported Past Drug Use History: None Reported - Past Family History Mother Family Medical History: AFIB, Deep Vein Thrombosis (DVT) Father Family Medical History: Osteoarthritis (OA), Thyroid Disorder Medications and Allergies Home Medications Medication Instructions Recorded Confirmed Type metFORMIN HCL [Glucophage] 1,000 mg PO BID-W/MEALS 11/10/17 07/01/21 History Ezetimibe [Zetia] 10 mg PO DAILY 10/06/18 07/01/21 History Apixaban [Eliquis] 5 mg PO BID #180 tab 02/15/19 07/01/21 Rx carvediloL [Coreg] 3.125 mg PO BID #180 tablet 02/16/19 07/01/21 Rx PARoxetine HCL 30 mg PO DAILY 06/23/19 07/01/21 History Artificial Tears-Hypromellose 1 drops BOTH EYES TID PRN 11/13/20 07/01/21 History [Artificial Tear Drops] Albuterol Inhaler [Ventolin Hfa 2 puff INHALATION RT-Q4H PRN 06/26/21 07/01/21 History Inhaler] Acetaminophen [Tylenol] 1,000 mg PO Q4-6H PRN 07/01/21 07/01/21 History Latanoprost/Pf [Latanoprost 0.005% 1 drop BOTH EYES HS 07/01/21 07/01/21 History Eye Drop] Levothyroxine Sodium [Synthroid] 175 mcg PO DAILY 07/01/21 07/01/21 History predniSONE See Taper PO DIRECTED 07/01/21 07/01/21 History Allergies Allergy/AdvReac Type Severity Reaction Status Date / Time Tqirxel-GEW-BxX Reductase AdvReac FACIAL Verified 07/01/21 21:40 Inhibitor NUMBNESS [Zmisqoz-Rye-Hvh Reductase Inhibitor] SEAFOOD Allergy Rash/Hives Uncoded 07/01/21 18:56 Physical Exam Vitals: Vital Signs Temp Pulse Pulse Resp BP BP BP 07/02/21 08:28 74 07/02/21 08:15 70 07/02/21 04:38 62 07/02/21 04:28 63 07/02/21 04:20 97.3 F L 70 23 146/95 153/98 07/02/21 03:31 70 21 125/82 07/02/21 01:36 07/02/21 00:09 70 07/01/21 23:01 65 28 H 147/87 07/01/21 22:30 68 07/01/21 22:18 68 07/01/21 21:36 70 22 153/94 07/01/21 19:33 71 24 153/87 07/01/21 18:53 98.3 F 70 32 H 168/110 Pulse Ox FiO2 07/02/21 08:28 07/02/21 08:15 70 07/02/21 04:38 07/02/21 04:28 70 07/02/21 04:20 99 70 07/02/21 03:31 96 07/02/21 01:36 70 07/02/21 00:09 98 07/01/21 23:01 100 07/01/21 22:30 07/01/21 22:18 70 07/01/21 21:36 97 07/01/21 19:33 96 07/01/21 18:53 84 L Intake and Output 07/01/21 07/02/21 07/02/21 22:59 06:59 14:59 Other: Voiding Method Bedside Commode Bedpan Weight 122.47 kg 122.47 kg Results 07/02/21 02:58 07/02/21 02:58 Cardiac Enzymes 07/01/21 07/01/21 07/02/21 Range/Units 19:37 19:37 00:16 AST 22 (14-36) U/L Troponin I 0.041 H* 0.039 H* (0.000-0.034) ng/mL 07/02/21 Range/Units 02:58 AST (14-36) U/L Troponin I 0.037 H* (0.000-0.034) ng/mL Coagulation 07/01/21 Range/Units 19:37 PT 11.1 (9.0-12.0) sec APTT 25.0 (22.0-30.0) sec CBC 07/01/21 07/02/21 Range/Units 19:37 02:58 WBC 12.4 H 8.7 (3.8-10.6) k/uL RBC 5.22 4.74 (3.80-5.40) m/uL Hgb 14.5 13.6 (11.4-16.0) gm/dL Hct 46.1 H 42.4 (34.0-46.0) % Plt Count 224 158 (150-450) k/uL Comprehensive Metabolic Panel 07/01/21 07/02/21 Range/Units 19:37 02:58 Sodium 140 138 (137-145) mmol/L Potassium 4.1 4.4 (3.5-5.1) mmol/L Chloride 101 101 (98-107) mmol/L Carbon Dioxide 29 27 (22-30) mmol/L BUN 14 12 (7-17) mg/dL Creatinine 0.65 0.47 L (0.52-1.04) mg/dL Glucose 175 H 165 H (74-99) mg/dL Calcium 9.2 8.6 (8.4-10.2) mg/dL AST 22 (14-36) U/L ALT 18 (4-34) U/L Alkaline Phosphatase 87 (38-126) U/L Total Protein 7.8 (6.3-8.2) g/dL Albumin 4.3 (3.5-5.0) g/dL Current Medications Generic Name Dose Route Start Last Admin Trade Name Freq PRN Reason Stop Dose Admin Acetaminophen 1,000 mg 07/02/21 06:00 Acetaminophen Tab 500 Mg Tab PO Q6H PRN Pain or Fever > 100.5 Albuterol Sulfate 1.25 mg 07/02/21 01:24 Albuterol Nebulized 1.25 Mg/3 Ml INHALATION RT-Q2H PRN Dyspnea Albuterol/Ipratropium 3 ml 07/02/21 04:00 07/02/21 08:15 Ipratropium-Albuterol 3 Ml Neb INHALATION 3 ml RT-Q4H JOHN PAUL Administration Apixaban 5 mg 07/02/21 01:15 07/02/21 01:51 Apixaban 5 Mg Tab PO 5 mg BID JOHN PAUL Administration Protocol Artificial Tears 1 drops 07/02/21 09:00 Artificial Tears-Hypromellose Drops 15 Ml Btl BOTH EYES TID PRN DRY EYES Carvedilol 3.125 mg 07/02/21 01:15 07/02/21 07:00 Carvedilol 3.125 Mg Tab PO 3.125 mg BID-W/MEALS JOHN PAUL Administration Ezetimibe 10 mg 07/02/21 09:00 Ezetimibe 10 Mg Tab PO DAILY JOHN PAUL Furosemide 40 mg 07/02/21 09:00 Furosemide 10 Mg/Ml 4 Ml Vial IV DAILY JOHN PAUL Guaifenesin/Codeine Phosphate 10 ml 07/01/21 22:24 Guaifenesin-Coden 100-10mg/5ml 10 Ml Cup PO TID PRN Cough Insulin Aspart 0 unit 07/02/21 07:30 07/02/21 07:09 Insulin Aspart (Novolog) 100 Unit/Ml Vial SQ 3 unit AC-TID JOHN PAUL Administration Protocol Latanoprost 1 drops 07/02/21 21:00 Latanoprost 0.005% Ophth Drops 2.5 Ml Btl BOTH EYES HS JOHN PAUL Levothyroxine Sodium 176 mcg 07/02/21 06:30 07/02/21 07:00 Levothyroxine 88 Mcg Tab PO 176 mcg DAILY@0630 JOHN PAUL Administration Naloxone HCl 0.2 mg 07/01/21 22:21 Naloxone 0.4 Mg/Ml 1 Ml Vial IV Q2M PRN Opioid Reversal Paroxetine HCl 30 mg 07/02/21 09:00 Paroxetine 10 Mg Tab PO DAILY JOHN PAUL Prednisone 40 mg 07/02/21 09:00 Prednisone 20 Mg Tab PO DAILY JOHN PAUL Intake and Output 07/01/21 07/02/21 07/02/21 22:59 06:59 14:59 Other: Voiding Method Bedside Commode Bedpan Weight 122.47 kg 122.47 kg 07/02/21 02:58 07/02/21 02:58
[2021-07-02 16:44] LABS: Glucose,Whole Blood 229 mg/dL (75-99)
--- NOTE | 2021-07-02 19:37 | CA ---
Transthoracic Echo Report Name: Bernice Tran Age: 45 Gender: F : 1975 Exam Date: 07/02/2021 09:51 Exam Location: [place] [facility] Ht (in): 66 Wt (lb): 270 Ordering Physician: Yuli Adams Attending/Referring Phys: [id number], [employer] [facility] Manager Charlotte Cote RDCS Procedure CPT: Indications: LV function Cardiac Hx: Technical Quality: Very technically difficult study Contrast 1: Lumason Total Dose (mL): 30 Contrast 2: Total Dose (mL): MEASUREMENTS (Male / Female) Normal Values 2D ECHO LV Diastolic Diameter PLAX 6.1 cm 4.2 - 5.9 / 3.9 - 5.3 cm LV Systolic Diameter PLAX 3.6 cm IVS Diastolic Thickness 1.4 cm 0.6 - 1.0 / 0.6 - 0.9 cm LVPW Diastolic Thickness 1.1 cm 0.6 - 1.0 / 0.6 - 0.9 cm LV Relative Wall Thickness 0.4 M-MODE Aortic Root Diameter MM 2.5 cm DOPPLER AV Peak Velocity 95.1 cm/s AV Peak Gradient 3.6 mmHg MV Area PHT 3.8 cm??? Mitral E Point Velocity 87.4 cm/s Mitral A Point Velocity 36.0 cm/s Mitral E to A Ratio 2.4 MV Deceleration Time 198.6 ms TR Peak Velocity 239.5 cm/s TR Peak Gradient 23.0 mmHg Right Ventricular Systolic Press 28.0 mmHg FINDINGS Left Ventricle Moderately increased left ventricular wall thickness. Left ventricular ejection fraction is estimated at 35-40 %. Right Ventricle Right ventricle not well visualized. Right ventricular systolic pressure within normal limits. Right Atrium Right atrium not well visualized. Left Atrium Left atrium not well visualized. Mitral Valve Mitral valve not well visualized. No mitral stenosis. No mitral regurgitation. Aortic Valve Aortic valve not well visualized. No aortic stenosis. No aortic regurgitation. Tricuspid Valve Tricuspid valve not well visualized. Mild tricuspid regurgitation. Pulmonic Valve Pulmonic valve not well visualized. Pericardium No pericardial effusion. Aorta Aortic root and proximal ascending aorta not well visualized. CONCLUSIONS Dilated left ventricle with reduced LV systolic function inferobasal akinesis Left ventricular ejection fraction 30% Previewed by: Dr. Erasto Hinojosa MD (Electronically Signed) Final Date: 02 Jul 2021 19:36
[2021-07-02 19:51] LABS: Glucose,Whole Blood 235 mg/dL (75-99)
[2021-07-03] MEDS: PIPERACILLIN-TAZOBACTAM 3.375 GM in SODIUM CHLORIDE 0.9% 100 ML IVPB SCH ×3 (02:45→20:39)
[2021-07-03] MEDS: IPRATROPIUM-ALBUTEROL 3 ML NEB INHALATION SCH ×5 (03:57→20:08)
[2021-07-03 06:47] LABS: Glucose,Whole Blood 196 mg/dL (75-99)
[2021-07-03] MEDS: LATANOPROST 0.005% OPHTH DROPS 2.5 ML BTL BOTH EYES SCH ×2 (06:48→20:40)
[2021-07-03] MEDS: methylPREDNISolone SOD SUCCI 125 MG/2 ML VIAL IV SCH ×3 (06:49→17:21)
[2021-07-03] MEDS: carvediloL 3.125 MG TAB PO SCH ×2 (06:52→17:20)
[2021-07-03] MEDS: LEVOTHYROXINE 88 MCG TAB PO SCH (06:52)
[2021-07-03] MEDS: INSULIN ASPART (NovoLOG) 100 UNIT/ML VIAL SQ SCH ×4 (06:53→21:10)
--- NOTE | 2021-07-03 08:02 | XR ---
EXAMINATION TYPE: XR chest 2V DATE OF EXAM: 07/03/2021 COMPARISON: X-ray dated 07/01/2021 HISTORY: Shortness of breath TECHNIQUE: Frontal and lateral views of the chest are obtained. FINDINGS: Persistent right middle lobe thick consolidation, stable. No air bronchogram within. Grossly unremark able remainder of the lungs. No sizable pleural effusion or definite pneumothorax. Increased cardiac transverse diameter. Left upper chest wall triple lead pacemaker. Degenerative hopper ges of the lower thoracic spine. IMPRESSION: No significant interval changes as described above.
[2021-07-03 08:05] LABS: Basophils % (A) 0 %; Eosinophils % (A) 0 %; HCT 42.2 % (34.0-46.0); HGB 13.3 gm/dL (11.4-16.0); Lymphocytes # (A) 0.5 k/uL (1.0-4.8); Lymphocytes % (A) 3 %; MCH 28.1 pg (25.0-35.0); MCHC 31.5 g/dL (31.0-37.0); MCV 89.1 fL (80.0-100.0); Mean Platelet Volume 9.4; Monocytes # (A) 0.3 k/uL (0-1.0); Monocytes % (A) 2 %; Neutrophils # (A) 14.5 k/uL (1.3-7.7); Neutrophils % (A) 94 %; Platelet Count 196 k/uL (150-450); RBC 4.74 m/uL (3.80-5.40); RDW 14.8 % (11.5-15.5); WBC 15.4 k/uL (3.8-10.6)
[2021-07-03 08:25] LABS: ALT 17 U/L (4-34); AST 19 U/L (14-36); African American GFR (CKD) >90 (>60 ml/min/1.73 sqM); Albumin 3.7 g/dL (3.5-5.0); Alkaline Phosphatase 71 U/L (38-126); Anion Gap 10 mmol/L; Blood Urea Nitrogen 20 mg/dL (7-17); Calcium 9.1 mg/dL (8.4-10.2); Carbon Dioxide 28 mmol/L (22-30); Chloride 99 mmol/L (98-107); Glucose 209 mg/dL (74-99); Non-African American GFR(CKD) >90 (>60 ml/min/1.73 sqM); Potassium 3.8 mmol/L (3.5-5.1); Sodium 137 mmol/L (137-145)
[2021-07-03] MEDS: APIXABAN 5 MG TAB PO SCH ×2 (09:56→20:40)
[2021-07-03] MEDS: EZETIMIBE 10 MG TAB PO SCH (09:56)
[2021-07-03] MEDS: FUROSEMIDE 10 MG/ML 4 ML VIAL IV SCH (09:56)
[2021-07-03] MEDS: PARoxetine 10 MG TAB PO SCH (09:56)
--- NOTE | 2021-07-03 10:01 | FL ---
EXAMINATION TYPE: FL barium swallow w video DATE OF EXAM: 07/03/2021 COMPARISON: NONE HISTORY: Abnormal physical findings, rule out aspiration TECHNIQUE: Fluoroscopy. FINDINGS: Fluoroscopic guidance was provided for the procedure performed in conjunction with the hospital [facility] pathology department. Please see complete report forthcoming from the Speech Pathology departmen t. Various consistencies from thin liquid to solids were administered. Fluoroscopy time 1 minute 10 seconds. Number of images: 0. No aspiration or penetration was evident. No significant pooling was observed in the vallecula. There was normal propulsion of the bolus. IMPRESSION: 1. Normal modified barium swallow
--- NOTE | 2021-07-03 10:30 | P.PN ---
Subjective Progress Note Date: 07/03/21 Is a very pleasant 45-year-old female patient with known history of sarcoidosis. The patient came in to the emergency department yesterday complaining of increased dyspnea, cough and congestion and the patient was bringing up some pinkish tinged sputum. She was getting more short of breath and for that reason she end up coming into the emergency. The CTA of the chest was done in the emergency department and the patient was found to have dense airspace consolidation right middle lobe which had progressed compared to the earlier exam. The patient also had some patchy bilateral pulmonary infiltrates. Knowing this of any pulmonary embolism. The patchy bilateral pulmonary infiltrates increased compared to the earlier examination for that reason the patient was admitted to the hospital. The patient is well-developed known to me. The patient has history of sarcoidosis. The patient has followed up with me in the office on outpatient basis. 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 In the past, the patient was treated with methotrexate and there was a concern for cardiac sarcoidosis and a cardiac MRI was done and the patient was diagnosed also having a sick sinus syndrome with cardiac pauses and the patient currently has a dual chamber pacer/AICD in place. The patient was being monitored with me closely. Her mediastinal lymphadenopathy has remained stable for quite some time. Subsequently, her condition decompensated and the patient developed worsening shortness of breath, drop in her lung capacity including FVC and FEV1. The follow-up CAT scan of the chest that was done on 05/20/2021 marylu wed thick infiltration the right middle lobe and septal thickening and significant nodularity in the right middle lobe that was new compared to the earlier CAT scans of the chest. I addition, there was slightly more prominent perihilar soft tissue thickness more so on the right with obliteration of the right middle lobe bronchus. This was thought to be related to some background right hilar mediastinal lymphadenopathy. At that point, I performed a bronchoscopy on this patient. I performed the bronchioloalveolar lavage that showed small to be growth. At the same time, has bronchial biopsies of the right middle lobe showed noncaseating granulomas consistent with sarcoidosis. During the bronchoscopy, I noted that the patient's right middle lobe bronchus was quite narrowed. There Liver of airway was estimated to be around 7-8 mm in size. I was barely able to push my bronchoscope into the right middle lobe to visualize a different segments of the right middle lobe including the medial and lateral segments. The biopsies came back positive for sarcoidosis. Her current blood work for now she was a white cell count of 8.7 with a hemoglobin of 13.6. Patient is at 156. Correlation profile is within normal limits. Creatinine is at 12 a creatinine of 0.4. ProBNP level is 4210 and the troponins are 0.04 0.03 and 0.03 respectively 3. Rest of the electrolytes and liver function tests are all within normal limits. The patient was started on Lasix. She is also currently on prednisone 40 mg by mouth on a daily basis. 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 The patient remains on oxygen at 4 L with a pulse ox of 97%. On today's chest x-ray, the right middle lobe remains atelectatic and unchanged compared to yesterday. She is using incentive spirometer. She is currently on IV Solu-Medrol at a dose of 60 mg every 6 hours. Angiotensin converting enzyme level was at 43. Rest of the blood work shows normal electrolytes, 20 with 0.5 and the patient was recommended 15.4 with a hemoglobin of 13.3. Echo of the heart was done yesterday and showed an ejection fraction of 35-40% and his LV function was moderately impaired. No other significant valvular abnormalities have been noted. The patient remains on IV Zosyn. The patient remains on IV Solu-Medrol for now. The patient is also on IV Lasix 40 mg every 24 hours. She is on oral Coreg 3.125 mg twice a day and she is on long-term and to coagulation with Viji marcello 5 mg by mouth twice a day. She otherwise is doing well pH is using the BiPAP overnight at a pressure of 12/5 cm of water. Objective - Vital Signs Vital signs: Vital Signs Temp 98.1 F 07/03/21 09:49 Pulse 70 07/03/21 09:49 Resp 20 07/03/21 09:49 BP 114/77 07/03/21 09:49 Pulse Ox 97 05/25/22 09:49 FiO2 40 07/03/21 03:59 Intake & Output 07/02/21 07/03/21 07/03/21 18:59 06:59 18:59 Intake Total 1490 120 Balance 1490 120 Intake: Oral 1490 120 Other: Voiding Method Toilet Toilet # Voids 2 1 - Exam Gen. appearance obese, comfortable, not in acute distress the patient's breathing is nonlabored and currently she is on O2 at 4 L with a pulse ox of 97% Head exam was generally normal. There was no scleral icterus or corneal arcus. Mucous membranes were moist. Neck was supple and without jugular venous distension, thyromegaly, or carotid bruits. Carotids were easily palpable bilaterally. There was no adenopathy. Lungs sounds are diminished and the patient is scheduled WHEEZES heard throughout the lung his bilaterally. Cardiac exam revealed the PMI to be normally situated and sized. The rhythm was regular and no extrasystoles were noted during several minutes of auscultation. The first and second heart sounds were normal and physiologic splitting of the second heart sound was noted. There were no murmurs, rubs, clicks, or gallops. The patient has a pacemaker/AICD or left anterior chest area. Abdominal exam revealed normal bowel sounds. The abdomen was soft, non-tender, and without masses, organomegaly, or appreciable enlargement of the abdominal aorta. Examination of the extremities revealed easily palpable radial, femoral and pedal pulses. There was no cyanosis, clubbing or edema. The patient has skin lesions related sarcoidosis involving the nasal bridge bilaterally Neurologically, the patient is awake and alert and the patient does not have any focal neurological deficit. Cranial nerves are essentially intact. - Labs CBC & Chem 7: 07/03/21 06:54 07/03/21 06:54 Labs: Abnormal Lab Results - Last 24 Hours (Table) 07/02/21 07/02/21 07/02/21 Range/Units 11:31 16:41 19:49 WBC (3.8-10.6) k/uL Neutrophils # (1.3-7.7) k/uL Lymphocytes # (1.0-4.8) k/uL BUN (7-17) mg/dL Glucose (74-99) mg/dL POC Glucose (mg/dL) 207 H 229 H 235 H (75-99) mg/dL 07/03/21 07/03/21 07/03/21 Range/Units 06:46 06:54 06:54 WBC 15.4 H (3.8-10.6) k/uL Neutrophils # 14.5 H (1.3-7.7) k/uL Lymphocytes # 0.5 L (1.0-4.8) k/uL BUN 20 H (7-17) mg/dL Glucose 209 H (74-99) mg/dL POC Glucose (mg/dL) 196 H (75-99) mg/dL Assessment and Plan Plan: 1 acute on chronic shortness of breath/hypoxemia probably due to progression of pulmonary sarcoidosis and collapse of the right lobe. Patient is post bronchoscopy and bronchial lavage and airway inspection and transbronchial biopsies of the right middle lobe. The patient had significant narrowing of the right middle lobe bronchus which is probably related to sarcoidosis. At the same time transbronchial biopsies of the right middle lobe showed noncaseating there were no murmurs supporting diagnosis of sarcoidosis. No evidence of any microbial growth on the bronchial lavage. As such, I believe the patient has progression of sarcoidosis special that there is areas of nodular infiltrates bilaterally I see on the most recent CAT scan of the chest is evaluation of 07/03/2021, the patient is feeling much better. The chest x-ray still showing the right middle lung atelectasis, unchanged compared to yesterday. As such, we believe that there is bronchoconstriction at the level of the right middle lobe bronchus. Underlying mucous plugs cannot be completely ruled out. The patient is feeling better on steroids. She is receiving aggressive pulmonary toileting and she is also on BiPAP and using incentive spirometer. Clinically much improved on 4 L of oxygen by nasal cannula. 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 Most recent lipid a ejection fraction showed improvement in LV function. 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 The patient can be kept on Eliquis For the time being Continue BiPAP Continue using incentive spirometer with aggressive pulmonary toileting IV Solu Medrol 90 Zosyn for another 24 hours Echocardiogram showed an ejection fraction of 30-35%, and the patient is known to have cardiomyopathy Continued IV Lasix repeat Blood work in a.m. and will continue to follow. Continue using the BiPAP overnight.
[2021-07-03 11:25] LABS: Glucose,Whole Blood 250 mg/dL (75-99)
[2021-07-03] MEDS ORDERED: IPRATROPIUM-ALBUTEROL 3 ML NEB ONE (12:31)
[2021-07-03] MEDS ORDERED: methylPREDNISolone SOD SUCCI 125 MG/2 ML VIAL ONE (12:31)
--- NOTE | 2021-07-03 14:31 | P.PN ---
Subjective Progress Note Date: 07/03/21 Doing well on NC. Gen: awake, alert HEENT: normocephalic, atraumatic, good hearing acuity, moist mucous membranes Resp: good air exchange, breathing comfortably with no accessory muscle use, diffuse coarse crackles CVS: good distal perfusion x 4, regular rate and rhythm GI: soft, NTTP, ND : no SPT, no CVAT, reyes catheter not present MSK: no pitting edema, no clubbing Neuro: non-focal, moving all extremities Psych: cooperative, euthymic mood Assessment/plan: Acute hypoxemic respiratory failure Acute on chronic failure exacerbation Restrictive cardiomyopathy, EF 40-45% Sarcoidosis -Admit to inpatient, telemetry -Oxygen prn -Cardiology consult, pulmonary consult -DuoNeb's [id number] + albuterol when necessary -Prednisone 40 mg daily --> switched to solumedrol -IV Lasix 40 mg daily -Repeat echocardiogram Hypertension Hyperlipidemia Paroxysmal atrial fibrillation Hypothyroidism Mood disorder -Home medications reviewed and reconciled Patient is full code DVT prophylaxis covered with [employer]ix[employer] Objective - Vital Signs Vital signs: Vital Signs Temp 97.6 F 07/03/21 12:50 Pulse 70 07/03/21 12:50 Resp 18 07/03/21 12:50 BP 127/78 07/03/21 12:50 Pulse Ox 98 07/03/21 12:50 FiO2 40 07/03/21 03:59 Intake & Output 07/02/21 07/03/21 07/03/21 18:59 06:59 18:59 Intake Total 1490 120 Balance 1490 120 Intake: Oral 1490 120 Other: Voiding Method Toilet Toilet Toilet # Voids 2 1 - Labs CBC & Chem 7: 07/03/21 06:54 07/03/21 06:54 Labs: Abnormal Lab Results - Last 24 Hours (Table) 07/02/21 07/02/21 07/03/21 Range/Units 16:41 19:49 06:46 WBC (3.8-10.6) k/uL Neutrophils # (1.3-7.7) k/uL Lymphocytes # (1.0-4.8) k/uL BUN (7-17) mg/dL Glucose (74-99) mg/dL POC Glucose (mg/dL) 229 H 235 H 196 H (75-99) mg/dL 07/03/21 07/03/21 07/03/21 Range/Units 06:54 06:54 11:23 WBC 15.4 H (3.8-10.6) k/uL Neutrophils # 14.5 H (1.3-7.7) k/uL Lymphocytes # 0.5 L (1.0-4.8) k/uL BUN 20 H (7-17) mg/dL Glucose 209 H (74-99) mg/dL POC Glucose (mg/dL) 250 H (75-99) mg/dL
--- NOTE | 2021-07-03 16:47 | CDI ---
Documentation Clarification Form Date: 07/03/2021 04:26:17 PM From: Jaylene Katz RN CCDS Admit Date: 07/01/2021 10:21:00 PM Patient Name: Bernice Tran Visit Number: [id number] Discharge Date: ATTENTION: The Clinical Documentation Specialists (CDI) and [facility] Coding Staff appreciate your assistance in clarifying documentation. Please respond to the clarification below the line at the bottom and electronically sign. The CDI & [facility] Coding staff will review the response and follow-up if needed. Please note: Queries are made part of the Legal Health Record. If you have any questions, please contact the author of this message via ITS. Dr. Aan Bardales Your patient has the documented diagnosis of Acute on chronic failure exacerbation 07/01 07/03, H&P and Internal medicine PN. Additional information regarding the diagnosis is requested. History/Risk Factors: 45-year-old female presents to the ED with shortness of breath. Medical History: Atrial Fibrillation, DM, HTN, Restrictive cardiomyopathy, Nonischemic cardiomyopathy and AICD. 07/01, H&P. Clinical Indicators: 07/02, Internal Medicine PN: Acute on chronic failure exacerbation: On IV Lasix, 2-D echo requested. 07/02, Cardiology Consult: The patient has previous history of systolic heart failure. VS/Pulse OX: 07/01 B/P168/110, HR 70, Temp 98.3 F Oral, RR 32, SpO2 84% room air BNP: 07/01 4210 Echocardiogram Results: 07/02 Dilated left ventricle with reduced LV systolic function inferobasal akinesis. Left ventricular ejection fraction 30% CT Angio, 07/01: Patchy bilateral pulmonary infiltrates increased compared to old exam. Treatment: 07/02 current Coreg 3.125mg PO BID with meals, 07/02 current Lasix 40mg IV Daily. In your professional opinion, can you please clarify the diagnosis. [x] Acute on Chronic Systolic Heart Failure (EF < 40%) [ ] Acute on Chronic (please specify) Failure [ ] Other, please specify [ ] Unable to determine (Template Last Revised: March 2020) MTDD
[2021-07-03 16:51] LABS: Glucose,Whole Blood 188 mg/dL (75-99)
--- NOTE | 2021-07-03 16:59 | P.PN ---
Subjective Progress Note Date: 07/03/21 This is a 45 year old female with a past medical history significant for cardiomyopathy with AICD implantation, paroxysmal atrial fibrillation on anticoagulation with Eliquis, diabetes, hypertension, hyperlipidemia, multiple sclerosis, and cardiac sarcoidosis. Patient follows in the office with Dr. Hinojosa. We have been asked to see the patient in consultation for heart failure. Patient examined at the bedside. Patient had a recent bronchoscopy performed with Dr. James Wan and. She states she has been feeling short of breath since having her bronchoscopy. She denies having any increased lower extremity edema. She states her shortness of breath got so bad yesterday she came to the emergency room for further evaluation. She denies chest pain or pressure. The patient is currently on a BiPAP at 70% FiO2. EKG reveals paced rhythm with underlying atrial flutter Chest xray right middle lobe consolidation consistent with pneumonia. There is clearing of small right-sided pneumothorax compared to exam. Interstitial pneumonia left lower lung. Pulmonary infiltrates not significantly different than recent exam. Laboratory data: WBC 8.7. Hemoglobin 13.6. Platelet count 158. Sodium 138. Potassium 4.4. BUN 12. Creatinine 0.47. Troponin 0.041. 0.039. 0.037. Current home cardiac medications include Eliquis 5 mg twice a day, that he attend milligrams daily, carvedilol 3.125 mg twice a day Most recent echocardiogram obtained in April 2020 revealed ejection fraction 40- 45%. Mild mitral regurgitation. Mild tricuspid regurgitation. Repeat echocardiogram performed in November 2020 revealed ejection fraction 50- 55%, trace to mild MR, mild TR, and moderate pulmonary hypertension Patient underwent cardiac catheterization in November 2020 revealing normal coronary arteries. 07/03/2021: This patient is feeling much better since yesterday. She is sitting up in the chair and breathing better. Her echocardiogram showed reduced ejection fraction of 30-35%, Compared to the previous echo suggestive of an ejection fraction up to 50%. Patient is currently in atrial flutter compared to the dual-chamber pacemaker in sinus rhythm, previously. Probably change of rhythm might have caused reduction in ejection fraction. Discussed with Dr. Hinojosa and planning to do cardioversion after 3-4 weeks of anticoagulation. Some of the changes could be related to sarcoidosis. She apparently passed the swallow evaluation. Her lungs appeared to be better. She will continue current medical therapy including anticoagulation Objective - Vital Signs Vital signs: Vital Signs Temp 97.6 F 07/03/21 12:50 Pulse 74 07/03/21 15:58 Resp 18 07/03/21 12:50 BP 127/78 07/03/21 12:50 Pulse Ox 98 07/03/21 12:50 FiO2 40 07/03/21 03:59 Intake & Output 07/02/21 07/03/21 07/03/21 18:59 06:59 18:59 Intake Total 1490 780 Balance 1490 780 Intake: Oral 1490 780 Other: Voiding Method Toilet Toilet Toilet # Voids 2 1 2 - Exam GENERAL EXAM: Patient is alert and oriented and doesn't appear to be in any acute distress HEENT: Normocephalic. Normal reaction of pupils, equal size, normal range of extraocular motion. No erythema or exudates in the throat. NECK: No masses, no nuchal rigidity. CHEST: No chest wall deformity. LUNGS: Diminished breath sounds and scattered rhonchi HEART: S1 and S2 normal with no audible mumurs or gallops. Regular rhythm, femorals equal on both sides.. ABDOMEN: No hepatosplenomegaly, normal bowel sounds, no guarding or rigidity. SKIN: No rashes CENTRAL NERVOUS SYSTEM: No focal deficits. EXTREMITIES: No cyanosis, clubbing or edema. - Labs CBC & Chem 7: 07/03/21 06:54 07/03/21 06:54 Labs: Abnormal Lab Results - Last 24 Hours (Table) 07/02/21 07/03/21 07/03/21 Range/Units 19:49 06:46 06:54 WBC 15.4 H (3.8-10.6) k/uL Neutrophils # 14.5 H (1.3-7.7) k/uL Lymphocytes # 0.5 L (1.0-4.8) k/uL BUN (7-17) mg/dL Glucose (74-99) mg/dL POC Glucose (mg/dL) 235 H 196 H (75-99) mg/dL 07/03/21 07/03/21 07/03/21 Range/Units 06:54 11:23 16:49 WBC (3.8-10.6) k/uL Neutrophils # (1.3-7.7) k/uL Lymphocytes # (1.0-4.8) k/uL BUN 20 H (7-17) mg/dL Glucose 209 H (74-99) mg/dL POC Glucose (mg/dL) 250 H 188 H (75-99) mg/dL Assessment and Plan (1) Atrial flutter Current Visit: Yes Status: Acute Code(s): I48.92 - UNSPECIFIED ATRIAL FLUTTER SNOMED Code(s): 1555210 (2) Acute respiratory failure Current Visit: Yes Status: Acute Code(s): J96.00 - ACUTE RESPIRATORY FAILURE, UNSP W HYPOXIA OR HYPERCAPNIA SNOMED Code(s): 09909207 (3) Sarcoidosis Current Visit: Yes Status: Acute Code(s): D86.9 - SARCOIDOSIS, UNSPECIFIED SNOMED Code(s): 27972846 (4) Type 2 diabetes mellitus Current Visit: No Status: Acute Code(s): E11.9 - TYPE 2 DIABETES MELLITUS WI THOUT COMPLICATIONS SNOMED Code(s): 24539927 (5) Cardiomyopathy Current Visit: Yes Status: Acute Code(s): I42.9 - CARDIOMYOPATHY, UNSPECIFIED SNOMED Code(s): 55474528 Plan: Continue current therapy. Consider cardioversion after 3 weeks of anticoagulation. Discussed with the technical document writer. Further recommendati ons depend upon the clinical course
[2021-07-03 20:21] LABS: Glucose,Whole Blood 281 mg/dL (75-99)
[2021-07-04] MEDS: IPRATROPIUM-ALBUTEROL 3 ML NEB INHALATION SCH ×7 (00:11→23:33)
[2021-07-04] MEDS: methylPREDNISolone SOD SUCCI 125 MG/2 ML VIAL IV SCH ×5 (00:26→23:21)
[2021-07-04] MEDS: PIPERACILLIN-TAZOBACTAM 3.375 GM in SODIUM CHLORIDE 0.9% 100 ML IVPB SCH (03:53)
[2021-07-04 06:18] LABS: Glucose,Whole Blood 235 mg/dL (75-99)
[2021-07-04] MEDS: LEVOTHYROXINE 88 MCG TAB PO SCH (06:33)
[2021-07-04] MEDS: carvediloL 3.125 MG TAB PO SCH ×2 (06:33→18:13)
[2021-07-04] MEDS: INSULIN ASPART (NovoLOG) 100 UNIT/ML VIAL SQ SCH ×4 (06:33→21:39)
--- NOTE | 2021-07-04 08:20 | XR ---
EXAMINATION TYPE: XR chest 1V portable DATE OF EXAM: 07/04/2021 COMPARISON: X-ray dated 07/03/2021 HISTORY: Shortness of breath TECHNIQUE: Single frontal view of the chest is obtained. FINDINGS: Persistent right middle lobe thick consolidation/collapse, stable. Small left basal pulmonary atelect asis. Grossly unremarkable remainder of the lungs. No pleural effusion or pneumothorax. Increased cardiac transverse diameter. Stable left upper chest w all triple lead pacemaker. IMPRESSION: Stable condition.
[2021-07-04] MEDS: EZETIMIBE 10 MG TAB PO SCH (09:37)
[2021-07-04] MEDS: PARoxetine 10 MG TAB PO SCH (09:38)
[2021-07-04] MEDS: APIXABAN 5 MG TAB PO SCH ×2 (09:38→21:39)
[2021-07-04] MEDS: FUROSEMIDE 10 MG/ML 4 ML VIAL IV SCH (09:39)
--- NOTE | 2021-07-04 09:53 | P.PN ---
Subjective Progress Note Date: 07/04/21 HISTORY OF PRESENT ILLNESS: This is a 45 year old female with a past medical history significant for cardiomyopathy with AICD implantation, paroxysmal atrial fibrillation on anticoagulation with Eliquis, diabetes, hypertension, hyperlipidemia, multiple sclerosis, and cardiac sarcoidosis. Patient follows in the office with Dr. Hinojosa. We have been asked to see the patient in consultation for heart failure. Patient examined at the bedside. Patient had a recent bronchoscopy performed with Dr. James Wan and. She states she has been feeling short of breath since having her bronchoscopy. She denies having any increased lower extremity edema. She states her shortness of breath got so bad yesterday she came to the emergency room for further evaluation. She denies chest pain or pressure. The patient is currently on a BiPAP at 70% FiO2. EKG reveals paced rhythm with underlying atrial flutter Chest xray right middle lobe consolidation consistent with pneumonia. There is clearing of small right-sided pneumothorax compared to exam. Interstitial pneumonia left lower lung. Pulmonary infiltrates not significantly different than recent exam. Laboratory data: WBC 8.7. Hemoglobin 13.6. Platelet count 158. Sodium 138. Potassium 4.4. BUN 12. Creatinine 0.47. Troponin 0.041. 0.039. 0.037. Current home cardiac medications include Eliquis 5 mg twice a day, that he attend milligrams daily, carvedilol 3.125 mg twice a day Most recent echocardiogram obtained in April 2020 revealed ejection fraction 40- 45%. Mild mitral regurgitation. Mild tricuspid regurgitation. Repeat echocardiogram performed in November 2020 revealed ejection fraction 50- 55%, trace to mild MR, mild TR, and moderate pulmonary hypertension Patient underwent cardiac catheterization in November 2020 revealing normal coronary arteries 07/03/2021: This patient is feeling much better since yesterday. She is sitting up in the chair and breathing better. Her echocardiogram showed reduced ejection fraction of 30-35%, Compared to the previous echo suggestive of an ejection fraction up to 50%. Patient is currently in atrial flutter compared to the dual-chamber pacemaker in sinus rhythm, previously. Probably change of rhythm might have caused reduction in ejection fraction. Discussed with Dr. Hinojosa and planning to do cardioversion after 3-4 weeks of anticoagulation. Some of the changes could be related to sarcoidosis. She apparently passed the swallow evaluation. Her lungs appeared to be better. She will continue current medical therapy including anticoagulation 07/04/2021 Patient examined this morning at the bedside. Patient states her shortness of breath is improving. She denies chest pain or pressure. Telemetry reveals atr ial flutter with her in the 70s. Patient is scheduled for repeat bronchoscopy today with pulmonary. Her elk was has been placed on hold. PHYSICAL EXAM: VITAL SIGNS: Reviewed. GENERAL: Well-developed in no acute distress. HEENT: Head is normocephalic. Pupils are equal, round. Sclerae anicteric. Mucous membranes of the mouth are moist. Neck supple. No JVD or thyromegaly LUNGS: Respirations even and unlabored. Lungs diminished with expiratory wheezing noted HEART: Regular rate and rhythm. S1 and S2 heard. ABDOMEN: Soft. Nondistended. Nontender. EXTREMITIES: Normal range of motion. No clubbing or cyanosis. Peripheral pulses intact. No lower extremity edema NEUROLOGIC: Awake and alert. Oriented x 3. ASSESSMENT: Acute hypoxic respiratory failure, status post bronchoscopy abnormalities noted of right middle lobe, may be secondary to sarcoidosis per pulmonary, possible pneumonia Abnormal troponins, not suggestive of ACS, flat Nonischemic cardiomyopathy with previous AICD Paroxysmal atrial fibrillation on anticoagulation with Eliquis Cardiac sarcoidosis Hypertension Hyperlipidemia Diabetes mellitus PLAN: Continue current cardiac medications Continue IV Lasix Continue telemetry monitoring Patient scheduled for bronchoscopy today Possible cardioversion after 3-4 weeks of continued anticoagulation if patient remains in atrial flutter Further recommendations pending patient course Nurse practitioner note has been reviewed by physician. Signing provider agrees with the documented findings, assessment, and plan of care. Objective - Vital Signs Vital signs: Vital Signs Temp 97.8 F 07/04/21 09:28 Pulse 69 07/04/21 09:28 Resp 16 07/04/21 09:28 BP 132/86 07/04/21 09:28 Pulse Ox 95 07/04/21 09:28 FiO2 40 07/04/21 08:25 Intake & Output 07/03/21 07/04/21 07/04/21 18:59 06:59 18:59 Intake Total 1440 10 Balance 1440 10 Intake: IV 10 Invasive Line 1 10 Oral 1440 Other: Voiding Method Toilet Toilet # Voids 1 1 - Labs CBC & Chem 7: 07/03/21 06:54 07/03/21 06:54 Labs: Abnormal Lab Results - Last 24 Hours (Table) 07/03/21 07/03/21 07/03/21 Range/Units 11:23 16:49 20:18 POC Glucose (mg/dL) 250 H 188 H 281 H (75-99) mg/dL 07/03/21 07/04/21 Range/Units 20:18 06:16 POC Glucose (mg/dL) 281 H 235 H (75-99) mg/dL
[2021-07-04 10:09] LABS: Basophils % (A) 0 %; Eosinophils % (A) 0 %; HCT 45.3 % (34.0-46.0); Lymphocytes # (A) 0.6 k/uL (1.0-4.8); Lymphocytes % (A) 3 %; MCV 90.2 fL (80.0-100.0); Mean Platelet Volume 9.7; Monocytes # (A) 0.4 k/uL (0-1.0); Monocytes % (A) 2 %; Neutrophils # (A) 17.7 k/uL (1.3-7.7); Neutrophils % (A) 94 %; Platelet Count 215 k/uL (150-450); RBC 5.02 m/uL (3.80-5.40); RDW 14.3 % (11.5-15.5); WBC 18.8 k/uL (3.8-10.6)
[2021-07-04 14:43] LABS: African American GFR (CKD) >90 (>60 ml/min/1.73 sqM); Anion Gap 9 mmol/L; Blood Urea Nitrogen 28 mg/dL (7-17); Calcium 9.4 mg/dL (8.4-10.2); Carbon Dioxide 29 mmol/L (22-30); Chloride 100 mmol/L (98-107); Glucose 214 mg/dL (74-99); Magnesium 1.9 mg/dL (1.6-2.3); Non-African American GFR(CKD) >90 (>60 ml/min/1.73 sqM); Potassium 3.9 mmol/L (3.5-5.1); Sodium 138 mmol/L (137-145)
--- NOTE | 2021-07-04 14:46 | P.PN ---
Subjective Progress Note Date: 07/04/21 Is a very pleasant 45-year-old female patient with known history of sarcoidosis. The patient came in to the emergency department yesterday complaining of increased dyspnea, cough and congestion and the patient was bringing up some pinkish tinged sputum. She was getting more short of breath and for that reason she end up coming into the emergency. The CTA of the chest was done in the emergency department and the patient was found to have dense airspace consolidation right middle lobe which had progressed compared to the earlier exam. The patient also had some patchy bilateral pulmonary infiltrates. Knowing this of any pulmonary embolism. The patchy bilateral pulmonary infiltrates increased compared to the earlier examination for that reason the patient was admitted to the hospital. The patient is well-developed known to me. The patient has history of sarcoidosis. The patient has followed up with me in the office on outpatient basis. 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 In the past, the patient was treated with methotrexate and there was a concern for cardiac sarcoidosis and a cardiac MRI was done and the patient was diagnosed also having a sick sinus syndrome with cardiac pauses and the patient currently has a dual chamber pacer/AICD in place. The patient was being monitored with me closely. Her mediastinal lymphadenopathy has remained stable for quite some time. Subsequently, her condition decompensated and the patient developed worsening shortness of breath, drop in her lung capacity including FVC and FEV1. The follow-up CAT scan of the chest that was done on 05/20/2021 marylu wed thick infiltration the right middle lobe and septal thickening and significant nodularity in the right middle lobe that was new compared to the earlier CAT scans of the chest. I addition, there was slightly more prominent perihilar soft tissue thickness more so on the right with obliteration of the right middle lobe bronchus. This was thought to be related to some background right hilar mediastinal lymphadenopathy. At that point, I performed a bronchoscopy on this patient. I performed the bronchioloalveolar lavage that showed small to be growth. At the same time, has bronchial biopsies of the right middle lobe showed noncaseating granulomas consistent with sarcoidosis. During the bronchoscopy, I noted that the patient's right middle lobe bronchus was quite narrowed. There Liver of airway was estimated to be around 7-8 mm in size. I was barely able to push my bronchoscope into the right middle lobe to visualize a different segments of the right middle lobe including the medial and lateral segments. The biopsies came back positive for sarcoidosis. Her current blood work for now she was a white cell count of 8.7 with a hemoglobin of 13.6. Patient is at 156. Correlation profile is within normal limits. Creatinine is at 12 a creatinine of 0.4. ProBNP level is 4210 and the troponins are 0.04 0.03 and 0.03 respectively 3. Rest of the electrolytes and liver function tests are all within normal limits. The patient was started on Lasix. She is also currently on prednisone 40 mg by mouth on a daily basis. 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 The patient remains on oxygen at 4 L with a pulse ox of 97%. On today's chest x-ray, the right middle lobe remains atelectatic and unchanged compared to yesterday. She is using incentive spirometer. She is currently on IV Solu-Medrol at a dose of 60 mg every 6 hours. Angiotensin converting enzyme level was at 43. Rest of the blood work shows normal electrolytes, 20 with 0.5 and the patient was recommended 15.4 with a hemoglobin of 13.3. Echo of the heart was done yesterday and showed an ejection fraction of 35-40% and his LV function was moderately impaired. No other significant valvular abnormalities have been noted. The patient remains on IV Zosyn. The patient remains on IV Solu-Medrol for now. The patient is also on IV Lasix 40 mg every 24 hours. She is on oral Coreg 3.125 mg twice a day and she is on long-term and to coagulation with Viji marcello 5 mg by mouth twice a day. She otherwise is doing well pH is using the BiPAP overnight at a pressure of 12/5 cm of water. 07/04/2021, I'm seeing the patient for a follow-up. The patient is improved significantly since yesterday. The patient's is currently on room air oxygen. No significant cough congestion or chest tightness and wheezing for now. I repeated the chest x-ray and the patient showed some interval improvement in the right midlung atelectasis in the area is less tense compared to yesterday. She is using incentive spirometer. She's he also using her BiPAP overnight. In terms of her CHF, she has cardiomyopathy with an EF of around 35% and the patient is currently on Coreg and she is receiving daily Lasix. She is on long- term and to coagulation with Eliquis. I was intending to perform a bronchoscopy on this patient to evaluate the right middle lobe. I think with her ongoing improvement, the procedure does not need to be done immediately and it can be postponed to a later stage of the right midlung remains atelectatic. There is improvement clinically and the chest x-rays also look in improved on today's evaluation. The patient remains on IV Zosyn. The patient remains on IV Solu Medrol. The white cell count is at 18.8 Objective - Vital Signs Vital signs: Vital Signs Temp 97.8 F 07/04/21 09:28 Pulse 73 07/04/21 11:56 Resp 16 07/04/21 09:28 BP 132/86 07/04/21 09:28 Pulse Ox 95 07/04/21 09:28 FiO2 40 07/04/21 08:25 Intake & Output 07/03/21 07/04/21 07/04/21 18:59 06:59 18:59 Intake Total 1440 10 Balance 1440 10 Intake: IV 10 Invasive Line 1 10 Oral 1440 Other: Voiding Method Toilet Toilet # Voids 1 1 - Exam Gen. appearance obese, comfortable, not in acute distress the patient's breathing is nonlabored and currently she is on room air oxygen Head exam was generally normal. There was no scleral icterus or corneal arcus. Mucous membranes were moist. Neck was supple and without jugular venous distension, thyromegaly, or carotid bruits. Carotids were easily palpable bilaterally. There was no adenopathy. Lungs sounds are diminished and the patient is scheduled WHEEZES heard throughout the lung his bilaterally. Cardiac exam revealed the PMI to be normally situated and sized. The rhythm was regular and no extrasystoles were noted during several minutes of auscultation. The first and second heart sounds were normal and physiologic splitting of the second heart sound was noted. There were no murmurs, rubs, clicks, or gallops. The patient has a pacemaker/AICD or left anterior chest area. Abdominal exam revealed normal bowel sounds. The abdomen was soft, non-tender, and without masses, organomegaly, or appreciable enlargement of the abdominal aorta. Examination of the extremities revealed easily palpable radial, femoral and pedal pulses. There was no cyanosis, clubbing or edema. The patient has skin lesions related sarcoidosis involving the nasal bridge bilaterally Neurologically, the patient is awake and alert and the patient does not have any focal neurological deficit. Cranial nerves are essentially intact. - Labs CBC & Chem 7: 07/04/21 09:30 07/03/21 06:54 Labs: Abnormal Lab Results - Last 24 Hours (Table) 07/03/21 07/03/21 07/03/21 Range/Units 16:49 20:18 20:18 WBC (3.8-10.6) k/uL Neutrophils # (1.3-7.7) k/uL Lymphocytes # (1.0-4.8) k/uL POC Glucose (mg/dL) 188 H 281 H 281 H (75-99) mg/dL 07/04/21 07/04/21 Range/Units 06:16 09:30 WBC 18.8 H (3.8-10.6) k/uL Neutrophils # 17.7 H (1.3-7.7) k/uL Lymphocytes # 0.6 L (1.0-4.8) k/uL POC Glucose (mg/dL) 235 H (75-99) mg/dL Assessment and Plan Plan: 1 acute on chronic shortness of breath/hypoxemia probably due to progression of pulmonary sarcoidosis and collapse of the right lobe. Patient is post bronchoscopy and bronchial lavage and airway inspection and transbronchial biopsies of the right middle lobe. The patient had significant narrowing of the right middle lobe bronchus which is probably related to sarcoidosis. At the same time transbronchial biopsies of the right middle lobe showed noncaseating there were no murmurs supporting diagnosis of sarcoidosis. No evidence of any microbial growth on the bronchial lavage. The patient is currently improving and currently the patient on room air oxygen. Clinically improved. Chest x-ray is also improving. The patient on room air oxygen. No need for immediate bronchoscopy at this point in time. 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 Most recent lipid a ejection fraction showed improvement in LV function. 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
[2021-07-04 14:49] LABS: Glucose,Whole Blood 211 mg/dL (75-99)
--- NOTE | 2021-07-04 16:20 | P.PN ---
Subjective Progress Note Date: 07/04/21 Doing well on NC. Ongoing IV steroids. Might need home o2 on discharge. Gen: awake, alert HEENT: normocephalic, atraumatic, good hearing acuity, moist mucous membranes Resp: good air exchange, breathing comfortably with no accessory muscle use, diffuse coarse crackles CVS: good distal perfusion x 4, regular rate and rhythm GI: soft, NTTP, ND : no SPT, no CVAT, reyes catheter not present MSK: no pitting edema, no clubbing Neuro: non-focal, moving all extremities Psych: cooperative, euthymic mood Assessment/plan: Acute hypoxemic respiratory failure Acute on chronic failure exacerbation Restrictive cardiomyopathy, EF 40-45% Sarcoidosis -Admit to inpatient, telemetry -Oxygen prn -Cardiology consult, pulmonary consult -DuoNeb's [id number] + albuterol when necessary -Prednisone 40 mg daily --> switched to solumedrol -IV Lasix 40 mg daily -Repeat echocardiogram Hypertension Hyperlipidemia Paroxysmal atrial fibrillation Hypothyroidism Mood disorder -Home medications reviewed and reconciled Patient is full code DVT prophylaxis covered with [employer] Objective - Vital Signs Vital signs: Vital Signs Temp 97.8 F 07/04/21 09:28 Pulse 73 07/04/21 12:29 Resp 18 07/04/21 12:29 BP 123/77 07/04/21 12:29 Pulse Ox 94 L 07/04/21 15:32 FiO2 40 07/04/21 08:25 Intake & Output 07/03/21 07/04/21 07/04/21 18:59 06:59 18:59 Intake Total 1440 10 540 Balance 1440 10 540 Intake: IV 10 Invasive Line 1 10 Oral 1440 540 Other: Voiding Method Toilet Toilet Toilet # Voids 1 1 2 - Labs CBC & Chem 7: 07/04/21 09:30 07/04/21 09:30 Labs: Abnormal Lab Results - Last 24 Hours (Table) 07/03/21 07/03/21 07/03/21 Range/Units 16:49 20:18 20:18 WBC (3.8-10.6) k/uL Neutrophils # (1.3-7.7) k/uL Lymphocytes # (1.0-4.8) k/uL BUN (7-17) mg/dL Glucose (74-99) mg/dL POC Glucose (mg/dL) 188 H 281 H 281 H (75-99) mg/dL 07/04/21 07/04/21 07/04/21 Range/Units 06:16 09:30 09:30 WBC 18.8 H (3.8-10.6) k/uL Neutrophils # 17.7 H (1.3-7.7) k/uL Lymphocytes # 0.6 L (1.0-4.8) k/uL BUN 28 H (7-17) mg/dL Glucose 214 H (74-99) mg/dL POC Glucose (mg/dL) 235 H (75-99) mg/dL 07/04/21 Range/Units 11:39 WBC (3.8-10.6) k/uL Neutrophils # (1.3-7.7) k/uL Lymphocytes # (1.0-4.8) k/uL BUN (7-17) mg/dL Glucose (74-99) mg/dL POC Glucose (mg/dL) 211 H (75-99) mg/dL
[2021-07-04 16:35] LABS: Glucose,Whole Blood 223 mg/dL (75-99)
[2021-07-04 20:56] LABS: Glucose,Whole Blood 248 mg/dL (75-99)
[2021-07-04] MEDS: AMOXIC-POT CLAV 875-125MG 1 EACH TAB PO SCH (21:39)
[2021-07-04] MEDS: LATANOPROST 0.005% OPHTH DROPS 2.5 ML BTL BOTH EYES SCH (21:40)
[2021-07-05] MEDS: IPRATROPIUM-ALBUTEROL 3 ML NEB INHALATION SCH ×4 (03:36→15:32)
[2021-07-05 05:58] LABS: Glucose,Whole Blood 253 mg/dL (75-99)
[2021-07-05] MEDS: INSULIN ASPART (NovoLOG) 100 UNIT/ML VIAL SQ SCH ×3 (06:50→17:22)
[2021-07-05] MEDS: LEVOTHYROXINE 88 MCG TAB PO SCH (06:50)
[2021-07-05] MEDS: carvediloL 3.125 MG TAB PO SCH ×2 (06:50→17:22)
[2021-07-05] MEDS: methylPREDNISolone SOD SUCCI 125 MG/2 ML VIAL IV SCH ×3 (06:51→17:22)
[2021-07-05] MEDS: AMOXIC-POT CLAV 875-125MG 1 EACH TAB PO SCH (09:10)
[2021-07-05] MEDS: APIXABAN 5 MG TAB PO SCH (09:10)
[2021-07-05] MEDS: FUROSEMIDE 10 MG/ML 4 ML VIAL IV SCH (09:10)
[2021-07-05] MEDS: EZETIMIBE 10 MG TAB PO SCH (09:10)
[2021-07-05] MEDS: PARoxetine 10 MG TAB PO SCH (09:11)
--- NOTE | 2021-07-05 09:57 | P.PN ---
Subjective Progress Note Date: 07/05/21 HISTORY OF PRESENT ILLNESS: This is a 45 year old female with a past medical history significant for cardiomyopathy with AICD implantation, paroxysmal atrial fibrillation on anticoagulation with Eliquis, diabetes, hypertension, hyperlipidemia, multiple sclerosis, and cardiac sarcoidosis. Patient follows in the office with Dr. Hinojosa. We have been asked to see the patient in consultation for heart failure. Patient examined at the bedside. Patient had a recent bronchoscopy performed with Dr. James Wan and. She states she has been feeling short of breath since having her bronchoscopy. She denies having any increased lower extremity edema. She states her shortness of breath got so bad yesterday she came to the emergency room for further evaluation. She denies chest pain or pressure. The patient is currently on a BiPAP at 70% FiO2. EKG reveals paced rhythm with underlying atrial flutter Chest xray right middle lobe consolidation consistent with pneumonia. There is clearing of small right-sided pneumothorax compared to exam. Interstitial pneumonia left lower lung. Pulmonary infiltrates not significantly different than recent exam. Laboratory data: WBC 8.7. Hemoglobin 13.6. Platelet count 158. Sodium 138. Potassium 4.4. BUN 12. Creatinine 0.47. Troponin 0.041. 0.039. 0.037. Current home cardiac medications include Eliquis 5 mg twice a day, that he attend milligrams daily, carvedilol 3.125 mg twice a day Most recent echocardiogram obtained in April 2020 revealed ejection fraction 40- 45%. Mild mitral regurgitation. Mild tricuspid regurgitation. Repeat echocardiogram performed in November 2020 revealed ejection fraction 50- 55%, trace to mild MR, mild TR, and moderate pulmonary hypertension Patient underwent cardiac catheterization in November 2020 revealing normal coronary arteries 07/03/2021: This patient is feeling much better since yesterday. She is sitting up in the chair and breathing better. Her echocardiogram showed reduced ejection fraction of 30-35%, Compared to the previous echo suggestive of an ejection fraction up to 50%. Patient is currently in atrial flutter compared to the dual-chamber pacemaker in sinus rhythm, previously. Probably change of rhythm might have caused reduction in ejection fraction. Discussed with Dr. Hinojosa and planning to do cardioversion after 3-4 weeks of anticoagulation. Some of the changes could be related to sarcoidosis. She apparently passed the swallow evaluation. Her lungs appeared to be better. She will continue current medical therapy including anticoagulation 07/04/2021 Patient examined this morning at the bedside. Patient states her shortness of breath is improving. She denies chest pain or pressure. Telemetry reveals atr ial flutter with her in the 70s. Patient is scheduled for repeat bronchoscopy today with pulmonary. Her elk was has been placed on hold. 07/05/2021 Patient examined this morning. She reports improvement in her SOB. She is wearing her bipap this morning. Bronchoscopy was cancelled yesterday per pul monary. Her Eliquis was resumed. She remains in atrial flutter with controlled ventricular rates. PHYSICAL EXAM: VITAL SIGNS: Reviewed. GENERAL: Well-developed in no acute distress. HEENT: Head is normocephalic. Pupils are equal, round. Sclerae anicteric. Mucous membranes of the mouth are moist. Neck supple. No JVD or thyromegaly LUNGS: Respirations even and unlabored. Lungs diminished HEART: Regular rate and rhythm. S1 and S2 heard. ABDOMEN: Soft. Nondistended. Nontender. EXTREMITIES: Normal range of motion. No clubbing or cyanosis. Peripheral pulses intact. Trace lower extremity edema NEUROLOGIC: Awake and alert. Oriented x 3. ASSESSMENT: Acute hypoxic respiratory failure, status post bronchoscopy abnormalities noted of right middle lobe, may be secondary to sarcoidosis per pulmonary, possible pneumonia Acute heart failure with reduced EF Abnormal troponins, not suggestive of ACS, flat Nonischemic cardiomyopathy with previous AICD Paroxysmal atrial fibrillation on anticoagulation with Eliquis Cardiac sarcoidosis Hypertension Hyperlipidemia Diabetes mellitus PLAN: Continue current cardiac medications Continue IV Lasix Continue telemetry monitoring Possible cardioversion after 3-4 weeks of continued anticoagulation if patient remains in atrial flutter Further recommendations pending patient course Nurse practitioner note has been reviewed by physician. Signing provider agrees with the documented findings, assessment, and plan of care. Objective - Vital Signs Vital signs: Vital Signs Temp 97.7 F 07/05/21 04:00 Pulse 70 07/05/21 08:37 Resp 17 07/05/21 04:00 BP 130/78 07/05/21 04:00 Pulse Ox 96 07/05/21 08:24 FiO2 21 07/05/21 08:24 Intake & Output 07/04/21 07/05/21 07/05/21 18:59 06:59 18:59 Intake Total 540 10 Balance 540 10 Intake: IV 10 Invasive Line 1 10 Oral 540 Other: Voiding Method Toilet Toilet # Voids 2 1 - Labs CBC & Chem 7: 07/04/21 09:30 07/04/21 09:30 Labs: Abnormal Lab Results - Last 24 Hours (Table) 07/04/21 07/04/21 07/04/21 Range/Units 09:30 09:30 11:39 WBC 18.8 H (3.8-10.6) k/uL Neutrophils # 17.7 H (1.3-7.7) k/uL Lymphocytes # 0.6 L (1.0-4.8) k/uL BUN 28 H (7-17) mg/dL Glucose 214 H (74-99) mg/dL POC Glucose (mg/dL) 211 H (75-99) mg/dL 07/04/21 07/04/21 07/05/21 Range/Units 16:34 20:54 05:44 WBC (3.8-10.6) k/uL Neutrophils # (1.3-7.7) k/uL Lymphocytes # (1.0-4.8) k/uL BUN (7-17) mg/dL Glucose (74-99) mg/dL POC Glucose (mg/dL) 223 H 248 H 253 H (75-99) mg/dL
[2021-07-05 11:01] VITALS: RESP 16; TEMP 97.6
[2021-07-05 11:32] LABS: Glucose,Whole Blood 246 mg/dL (75-99)
--- NOTE | 2021-07-05 12:02 | P.PN ---
Subjective Progress Note Date: 07/05/21 Is a very pleasant 45-year-old female patient with known history of sarcoidosis. The patient came in to the emergency department yesterday complaining of increased dyspnea, cough and congestion and the patient was bringing up some pinkish tinged sputum. She was getting more short of breath and for that reason she end up coming into the emergency. The CTA of the chest was done in the emergency department and the patient was found to have dense airspace consolidation right middle lobe which had progressed compared to the earlier exam. The patient also had some patchy bilateral pulmonary infiltrates. Knowing this of any pulmonary embolism. The patchy bilateral pulmonary infiltrates increased compared to the earlier examination for that reason the patient was admitted to the hospital. The patient is well-developed known to me. The patient has history of sarcoidosis. The patient has followed up with me in the office on outpatient basis. 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 In the past, the patient was treated with methotrexate and there was a concern for cardiac sarcoidosis and a cardiac MRI was done and the patient was diagnosed also having a sick sinus syndrome with cardiac pauses and the patient currently has a dual chamber pacer/AICD in place. The patient was being monitored with me closely. Her mediastinal lymphadenopathy has remained stable for quite some time. Subsequently, her condition decompensated and the patient developed worsening shortness of breath, drop in her lung capacity including FVC and FEV1. The follow-up CAT scan of the chest that was done on 05/20/2021 marylu wed thick infiltration the right middle lobe and septal thickening and significant nodularity in the right middle lobe that was new compared to the earlier CAT scans of the chest. I addition, there was slightly more prominent perihilar soft tissue thickness more so on the right with obliteration of the right middle lobe bronchus. This was thought to be related to some background right hilar mediastinal lymphadenopathy. At that point, I performed a bronchoscopy on this patient. I performed the bronchioloalveolar lavage that showed small to be growth. At the same time, has bronchial biopsies of the right middle lobe showed noncaseating granulomas consistent with sarcoidosis. During the bronchoscopy, I noted that the patient's right middle lobe bronchus was quite narrowed. There Liver of airway was estimated to be around 7-8 mm in size. I was barely able to push my bronchoscope into the right middle lobe to visualize a different segments of the right middle lobe including the medial and lateral segments. The biopsies came back positive for sarcoidosis. Her current blood work for now she was a white cell count of 8.7 with a hemoglobin of 13.6. Patient is at 156. Correlation profile is within normal limits. Creatinine is at 12 a creatinine of 0.4. ProBNP level is 4210 and the troponins are 0.04 0.03 and 0.03 respectively 3. Rest of the electrolytes and liver function tests are all within normal limits. The patient was started on Lasix. She is also currently on prednisone 40 mg by mouth on a daily basis. 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 The patient remains on oxygen at 4 L with a pulse ox of 97%. On today's chest x-ray, the right middle lobe remains atelectatic and unchanged compared to yesterday. She is using incentive spirometer. She is currently on IV Solu-Medrol at a dose of 60 mg every 6 hours. Angiotensin converting enzyme level was at 43. Rest of the blood work shows normal electrolytes, 20 with 0.5 and the patient was recommended 15.4 with a hemoglobin of 13.3. Echo of the heart was done yesterday and showed an ejection fraction of 35-40% and his LV function was moderately impaired. No other significant valvular abnormalities have been noted. The patient remains on IV Zosyn. The patient remains on IV Solu-Medrol for now. The patient is also on IV Lasix 40 mg every 24 hours. She is on oral Coreg 3.125 mg twice a day and she is on long-term and to coagulation with Viji marcello 5 mg by mouth twice a day. She otherwise is doing well pH is using the BiPAP overnight at a pressure of 12/5 cm of water. 07/04/2021, I'm seeing the patient for a follow-up. The patient is improved significantly since yesterday. The patient's is currently on room air oxygen. No significant cough congestion or chest tightness and wheezing for now. I repeated the chest x-ray and the patient showed some interval improvement in the right midlung atelectasis in the area is less tense compared to yesterday. She is using incentive spirometer. She's he also using her BiPAP overnight. In terms of her CHF, she has cardiomyopathy with an EF of around 35% and the patient is currently on Coreg and she is receiving daily Lasix. She is on long- term and to coagulation with Eliquis. I was intending to perform a bronchoscopy on this patient to evaluate the right middle lobe. I think with her ongoing improvement, the procedure does not need to be done immediately and it can be postponed to a later stage of the right midlung remains atelectatic. There is improvement clinically and the chest x-rays also look in improved on today's evaluation. The patient remains on IV Zosyn. The patient remains on IV Solu Medrol. The white cell count is at 18.8 07/05/2021, I'm seeing the patient for a follow-up. Doing extremely well. No specific complaints. No symptoms of shortness of breath. Pulse ox is maintained above 90% and on 2 L she is at 97% pulse ox. No chest pain. Shortness of breath and chest congestion is improved significantly. No other new complaints otherwise for now. The patient seems to be adequate for discharge at this point in time. Objective - Vital Signs Vital signs: Vital Signs Temp 97.6 F 07/05/21 08:00 Pulse 70 07/05/21 08:37 Resp 16 07/05/21 08:00 BP 116/72 07/05/21 08:00 Pulse Ox 96 07/05/21 08:24 FiO2 21 07/05/21 08:24 Intake & Output 07/04/21 07/05/21 07/05/21 18:59 06:59 18:59 Intake Total 540 10 100 Balance 540 10 100 Intake: IV 10 Invasive Line 1 10 Oral 540 100 Other: Voiding Method Toilet Toilet Toilet # Voids 2 1 - Exam Gen. appearance obese, comfortable, not in acute distress the patient's breathing is nonlabored and currently she is on room air oxygen Head exam was generally normal. There was no scleral icterus or corneal arcus. Mucous membranes were moist. Neck was supple and without jugular venous distension, thyromegaly, or carotid bruits. Carotids were easily palpable bilaterally. There was no adenopathy. Lungs sounds are diminished and the patient is scheduled WHEEZES heard throughout the lung his bilaterally. Cardiac exam revealed the PMI to be normally situated and sized. The rhythm was regular and no extrasystoles were noted during several minutes of auscultation. The first and second heart sounds were normal and physiologic splitting of the second heart sound was noted. There were no murmurs, rubs, clicks, or gallops. The patient has a pacemaker/AICD or left anterior chest area. Abdominal exam revealed normal bowel sounds. The abdomen was soft, non-tender, and without masses, organomegaly, or appreciable enlargement of the abdominal aorta. Examination of the extremities revealed easily palpable radial, femoral and pedal pulses. There was no cyanosis, clubbing or edema. The patient has skin lesions related sarcoidosis involving the nasal bridge bilaterally Neurologically, the patient is awake and alert and the patient does not have any focal neurological deficit. Cranial nerves are essentially intact. - Labs CBC & Chem 7: 07/04/21 09:30 07/04/21 09:30 Labs: Abnormal Lab Results - Last 24 Hours (Table) 07/04/21 07/04/21 07/04/21 Range/Units 09:30 11:39 16:34 BUN 28 H (7-17) mg/dL Glucose 214 H (74-99) mg/dL POC Glucose (mg/dL) 211 H 223 H (75-99) mg/dL 07/04/21 07/05/21 07/05/21 Range/Units 20:54 05:44 11:31 BUN (7-17) mg/dL Glucose (74-99) mg/dL POC Glucose (mg/dL) 248 H 253 H 246 H (75-99) mg/dL Assessment and Plan Plan: 1 acute on chronic shortness of breath/hypoxemia probably due to progression of pulmonary sarcoidosis and collapse of the right lobe. Patient is post bronchoscopy and bronchial lavage and airway inspection and transbronchial biopsies of the right middle lobe. The patient had significant narrowing of the right middle lobe bronchus which is probably related to sarcoidosis. At the same time transbronchial biopsies of the right middle lobe showed noncaseating there were no murmurs supporting diagnosis of sarcoidosis. No evidence of any microbial growth on the bronchial lavage. The patient is currently improving and currently the patient on room air oxygen. Clinically improved. Chest x-ray is also improving. The patient on room air oxygen. No need for immediate bronchoscopy at this point in time. 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 Most recent lipid a ejection fraction showed improvement in LV function. 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 The patient will be discharged home today on a 40 mg of prednisone and she will receive slow prednisone afebrile now outpatient basis regarding her sarcoidosis. I'm considering also alternative agent such as methotrexate or CellCept Stop IV Zosyn and give the patient is short course of Augmentin on outpatient basis continue metformin medicine to make further recommendations on tighter blood sugar control probably by addition of an alternative additional diabetic agent The patient can be discharged home today to be followed up with me in outpatient basis. She has home O2. She has a home pulse oximeter. We'll continue to follow. She will take an incentive spirometer with her home.
--- NOTE | 2021-07-05 13:35 | P.DS ---
Providers Date of admission: 07/01/21 22:21 Expected date of discharge: 07/05/21 Attending physician: Ana Bardales MD Consults: 07/01/21 22:23 Consult Physician Urgent Consulting Provider: Valentín Sow Consult Reason/Comments: acute/chronic resp failure, sarcoidosis Do you want consulting provider notified?: Yes 07/02/21 01:20 Consult Physician Routine Consulting Provider: Jono Lanier Consult Reason/Comments: heart failure, restrictive cardiomyopathy Do you want consulting provider notified?: Yes Primary care physician: [facility] Course: 45 year old woman with history of sarcoidosis with cardiac involvement and restrictive cardiomyopathy status post AICD, paroxysmal atrial fibrillation, diabetes, hypertension, hyperlipidemia, hypothyroidism, mood disorder who presented for dyspnea. In the emergency room, patient was afebrile, 153/94, 97% on BiPAP 12/5, FiO2 100%, heart rate 70 and paced on EKG. CBC is remarkable for mild leukocytosis at 12.4. Chemistries are remarkable for slightly elevated glucose to 175. LFTs are unremarkable. Lactic acid was 2.4, repeat lactic acid was 1.8. Initial troponin was 0.041. BNP was 4210. Chest x-ray read demonstrates right middle lobe consolidation. Computed tomography scan also reviewed demonstrates dense airspace disease in the right middle lobe as well as shows progression of this disease, there is no evidence of pulmonary embolism, but there was evidence of cardiomegaly as well as patchy bilateral pulmonary infiltrates. EKG shows a ventricular paced rhythm at a rate of 69. Acute hypoxemic respiratory failure Acute on chronic failure exacerbation Restrictive cardiomyopathy, EF 40-45% Sarcoidosis -Admitted to inpatient, telemetry. Oxygen provided as needed, recovered to room air. Cardiology consulted, pulmonary consulted. Pt started on IV steroids, IV lasix, and duonebs ATC. Echo was repeated and showed progressing disease. She will f/u with cardiology and pulmonology. While she is on prednisone, she needs tighter BP control, and to take her sugars daily. Prescribed glucose strips, glucometer, and glipizide. Hypertension Hyperlipidemia Paroxysmal atrial fibrillation Hypothyroidism Mood disorder -Home medications reviewed and reconciled, changes noted above. I spent 34 minutes coordinating this discharge. Gen: awake, alert HEENT: normocephalic, atraumatic, good hearing acuity, moist mucous membranes Resp: good air exchange, breathing comfortably with no accessory muscle use, diffuse coarse crackles CVS: good distal perfusion x 4, regular rate and rhythm GI: soft, NTTP, ND : no SPT, no CVAT, reyes catheter not present MSK: no pitting edema, no clubbing Neuro: non-focal, moving all extremities Psych: cooperative, euthymic mood Patient Condition at Discharge: Good Plan - Discharge Summary Discharge Rx Participant: No New Discharge Prescriptions: New Furosemide [Lasix] 40 mg PO DAILY #30 tablet guaiFENesin-Coden 100-10MG/5ML [Robitussin AC] 10 ml PO TID PRN #1000 ml PRN Reason: Cough Amoxic-Pot Clav 875-125Mg [Augmentin 875-125] 1 each PO Q12HR #6 tab predniSONE 50 mg PO DAILY #30 tab Blood Sugar Diagnostic [Glucose Test Strip] 1 each MC DAILY #30 strip glipiZIDE [Glucotrol] 5 mg PO AC-BRKFST #30 tab Continue metFORMIN HCL [Glucophage] 1,000 mg PO BID-W/MEALS Ezetimibe [Zetia] 10 mg PO DAILY Apixaban [Eliquis] 5 mg PO BID #180 tab carvediloL [Coreg] 3.125 mg PO BID #180 tablet PARoxetine HCL 30 mg PO DAILY Artificial Tears-Hypromellose [Artificial Tear Drops] 1 drops BOTH EYES TID PRN PRN Reason: DRY EYES Albuterol Inhaler [Ventolin Hfa Inhaler] 2 puff INHALATION RT-Q4H PRN PRN Reason: Shortness Of Breath Levothyroxine Sodium [Synthroid] 175 mcg PO DAILY Acetaminophen [Tylenol] 1,000 mg PO Q4-6H PRN PRN Reason: Pain Or Fever > 100.5 Latanoprost/Pf [Latanoprost 0.005% Eye Drop] 1 drop BOTH EYES HS Discontinued predniSONE See Taper PO DIRECTED Discharge Medication List metFORMIN HCL [Glucophage] 1,000 mg PO BID-W/MEALS 11/10/17 [History] Ezetimibe [Zetia] 10 mg PO DAILY 10/06/18 [History] Apixaban [Eliquis] 5 mg PO BID #180 tab 02/15/19 [Rx] carvediloL [Coreg] 3.125 mg PO BID #180 tablet 02/16/19 [Rx] PARoxetine HCL 30 mg PO DAILY 06/23/19 [History] Artificial Tears-Hypromellose [Artificial Tear Drops] 1 drops BOTH EYES TID PRN 11/13/20 [History] Albuterol Inhaler [Ventolin Hfa Inhaler] 2 puff INHALATION RT-Q4H PRN 06/26/21 [History] Acetaminophen [Tylenol] 1,000 mg PO Q4-6H PRN 07/01/21 [History] Latanoprost/Pf [Latanoprost 0.005% Eye Drop] 1 drop BOTH EYES HS 07/01/21 [History] Levothyroxine Sodium [Synthroid] 175 mcg PO DAILY 07/01/21 [History] Amoxic-Pot Clav 875-125Mg [Augmentin 875-125] 1 each PO Q12HR #6 tab 07/05/21 [Rx] Blood Sugar Diagnostic [Glucose Test Strip] 1 each MC DAILY #30 strip 07/05/21 [Rx] Furosemide [Lasix] 40 mg PO DAILY #30 tablet 07/05/21 [Rx] glipiZIDE [Glucotrol] 5 mg PO AC-BRKFST #30 tab 07/05/21 [Rx] guaiFENesin-Coden 100-10MG/5ML [Robitussin AC] 10 ml PO TID PRN #1000 ml 07/05/21 [Rx] predniSONE 50 mg PO DAILY #30 tab 07/05/21 [Rx] Follow up Appointment(s)/Referral(s): Costa Falcon [Primary Care Provider] - 1-2 days Discharge/Stand Alone Forms: Who Do I Call?, Community Resources, Help In The Home, Personal Settlement Agent Discharge Disposition: HOME SELF-CARE
[2021-07-05 14:43] VITALS: BP 121/70
[2021-07-05 16:37] LABS: Glucose,Whole Blood 309 mg/dL (75-99)
[2021-07-05 17:39] VITALS: PULSE 69
--- NOTE | 2021-07-10 09:29 | CDI ---
Documentation Clarification Form Typical atrial flutter Date: 07/10/21 From: Chrissy Guillaume Admit Date: 07/01/2021 10:21:00 PM Patient Name: Bernice Tran Visit Number: [id number] Discharge Date: 07/05/2021 06:28:00 PM ATTENTION: The Clinical Documentation Specialists (CDI) and [facility] Coding Staff appreciate your assistance in clarifying documentation. Please respond to the clarification below the line at the bottom and electronically sign. The CDI & [facility] Coding staff will review the response and follow-up if needed. Please note: Queries are made part of the Legal Health Record. If you have any questions, please contact the author of this message via ITS. Dr. Oleg Izaguirre, Atrial Flutter is documented in your consult and progress notes. Additional clarification regarding the type of Atrial Flutter is requested. History/Risk factors: sarcoidosis of lung, heart & brain, acute on chronic hypoxic respiratory failure, acute on chronic systolic CHF w HTN, MS, restrictive cardiomyopathy and nonischemic PAF, DM Type II w hyperglycemia Clinical Indicators: Telemetry reveals atrial flutter in the 70s. EKG/telemetry: Paced rhythm with underlying atrial flutter Treatment: Possible cardioversion after 3-4 weeks of continued anticoagulants if patient remains in atrial flutter. Please clarify the type of Atrial Flutter, if known: [ ] Typical/Type I [ ] Atypical/Type II [ ] Other, please specify [ ] Unable to determine MTDD
== END 2021-07-05 18:28 | disposition home or self-care (01) | DRG 196 ==
LOC: EC 18:44 → 3SCARD 22:21
PROVIDERS: ADMIT Internal Medicine; ATTEND Internal Medicine
PROC: 5A09457 Assistance with Respiratory Ventilation, 24-96 Consecutive Hours, Continuous Positive Airway Pressure (ICD-10-PCS; principal; 2021-07-01)
PROC: 4B02XTZ Measurement of Cardiac Defibrillator, External Approach (ICD-10-PCS; 2021-07-02)
DX: D86.0 Sarcoidosis of lung (principal); I50.23 Acute on chronic systolic (congestive) heart failure; J96.21 Acute and chronic respiratory failure with hypoxia; Z68.41 Body mass index [BMI] 40.0-44.9, adult; J98.11 Atelectasis; I42.5 Other restrictive cardiomyopathy; I42.8 Other cardiomyopathies; I48.3 Typical atrial flutter; I11.0 Hypertensive heart disease with heart failure; J84.178 Other interstitial pulmonary diseases with fibrosis in diseases classified elsewhere; I49.5 Sick sinus syndrome; D86.85 Sarcoid myocarditis; G35 Multiple sclerosis; I48.0 Paroxysmal atrial fibrillation; E11.65 Type 2 diabetes mellitus with hyperglycemia; E66.9 Obesity, unspecified; Z28.311 Partially vaccinated for COVID-19; D86.89 Sarcoidosis of other sites; E78.5 Hyperlipidemia, unspecified; L30.9 Dermatitis, unspecified; G47.33 Obstructive sleep apnea (adult) (pediatric); E03.9 Hypothyroidism, unspecified; K57.30 Diverticulosis of large intestine without perforation or abscess without bleeding; F32.A Depression, unspecified; F41.0 Panic disorder [episodic paroxysmal anxiety]; F90.9 Attention-deficit hyperactivity disorder, unspecified type; F81.81 Disorder of written expression; I25.2 Old myocardial infarction; R77.8 Other specified abnormalities of plasma proteins; M19.90 Unspecified osteoarthritis, unspecified site; Z79.01 Long term (current) use of anticoagulants; Z79.84 Long term (current) use of oral hypoglycemic drugs; Z79.890 Hormone replacement therapy; Z79.899 Other long term (current) drug therapy; Z87.19 Personal history of other diseases of the digestive system; Z90.49 Acquired absence of other specified parts of digestive tract; Z87.01 Personal history of pneumonia (recurrent); Z87.39 Personal history of other diseases of the musculoskeletal system and connective tissue; Z87.820 Personal history of traumatic brain injury; Z95.810 Presence of automatic (implantable) cardiac defibrillator; Z86.69 Personal history of other diseases of the nervous system and sense organs; Z98.890 Other specified postprocedural states; Z88.8 Allergy status to other drugs, medicaments and biological substances; Z91.013 Allergy to seafood; Z82.49 Family history of ischemic heart disease and other diseases of the circulatory system; Z83.2 Family history of diseases of the blood and blood-forming organs and certain disorders involving the immune mechanism; Z82.61 Family history of arthritis; Z83.49 Family history of other endocrine, nutritional and metabolic diseases
CPT/HCPCS: 36415; 71045; 71046; 71275; 74230; 80048; 80053; 82164; 83605; 83735; 83880; 84145; 84484; 85025; 85610; 85730; 93005; 93306; 94640; 94660; 94760; 96374; 96375; 96376; 99285

== ENCOUNTER 2021-07-07 15:34 | Inpatient (IN) | payer OTHER ==
[2021-07-07] MEDS ORDERED: PANTOPRAZOLE 40 MG/10 ML VIAL IVP STA (17:06)
[2021-07-07] MEDS ORDERED: SODIUM CHLORIDE 0.9% 1,000 ML IV STA (17:06)
[2021-07-07] MEDS ORDERED: METOCLOPRAMIDE 5 MG/ML 2 ML VIAL IVP STA (17:06)
[2021-07-07] MEDS ORDERED: MAG HYDROX/AL HYDROX/SIMETH 30 ML, HYOSCYAMINE ELIXIR 10 ML, LIDOCAINE VISCOUS 2% 10 ML PO STA ×3 (17:07)
--- NOTE | 2021-07-07 17:15 | ED ---
Abdominal Pain HPI - General Chief Complaint: Abdominal Pain Stated Complaint: Revisit/Heart Problems Time Seen by Provider: 07/07/21 16:55 Source: patient, family, RN notes reviewed Mode of arrival: ambulatory Limitations: no limitations - History of Present Illness Initial Comments: This is a 45-year-old female who presents to the emergency department for abdominal pain. Patient states that she woke up this morning around 2 AM with feeling of gas/bulging in the abdomen, more so in the LUQ, with some pain in the chest shooting into the back. Describes the chest pain as sharp. Denies a ripping sensation. States that she feels very bloated and has been belching more frequently. She does have a history of MS and states that she has had bowel obs tructions in the past. When she tried to eat applesauce today, she states that she experienced excruciating pain. States that eating also makes her feel nauseous, however she has not had any episodes of emesis. States that she has been taking Pepcid and Maalox with little to no relief. Denies any chest pain or shortness of breath. Patient was just admitted from 07/01-07/05 for acute on chronic respiratory failure and sarcoidosis. 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 She was discharged on new medication including Augmentin, prednisone, glipizide, and Lasix. Denies any fevers, chills, sore throat, cough, dyspnea, chest pain, palpitations, vomiting, diarrhea, back pain, or headaches. MD Complaint: abdominal pain Location: LUQ Quality: fullness, sharp Consistency: constant - Related Data Home Medications Medication Instructions Recorded Confirmed metFORMIN HCL [Glucophage] 1,000 mg PO BID-W/MEALS 11/10/17 07/07/21 Ezetimibe [Zetia] 10 mg PO DAILY 10/06/18 07/07/21 PARoxetine HCL 30 mg PO DAILY 06/23/19 07/07/21 Artificial Tears-Hypromellose 1 drop BOTH EYES TID PRN 11/13/20 07/07/21 [Artificial Tear Drops] Albuterol Inhaler [Ventolin Hfa 2 puff INHALATION RT-Q4H PRN 06/26/21 07/07/21 Inhaler] Acetaminophen [Tylenol] 1,000 mg PO Q4-6H PRN 07/01/21 07/07/21 Latanoprost/Pf [Latanoprost 0.005% 1 drop RIGHT EYE HS 07/01/21 07/07/21 Eye Drop] Levothyroxine Sodium [Synthroid] 175 mcg PO DAILY 07/01/21 07/07/21 Amoxic-Pot Clav 875-125Mg 1 tab PO Q12H 07/07/21 07/07/21 [Augmentin 875-125] Previous Rx's Medication Instructions Recorded Apixaban [Eliquis] 5 mg PO BID #180 tab 02/15/19 carvediloL [Coreg] 3.125 mg PO BID #180 tablet 02/16/19 Furosemide [Lasix] 40 mg PO DAILY #30 tablet 07/05/21 glipiZIDE [Glucotrol] 5 mg PO AC-BRKFST #30 tab 07/05/21 guaiFENesin-Coden 100-10MG/5ML 10 ml PO TID PRN #1000 ml 07/05/21 [Robitussin AC] predniSONE 50 mg PO DAILY #30 tab 07/05/21 Allergies Allergy/AdvReac Type Severity Reaction Status Date / Time Shdujnp-JRG-KnU Reductase AdvReac FACIAL Verified 07/07/21 20:28 Inhibitor NUMBNESS [Ajcchpl-Fyc-Pqh Reductase Inhibitor] SEAFOOD Allergy Rash/Hives Uncoded 07/07/21 16:23 Review of Systems ROS Statement: Those systems with pertinent positive or pertinent negative responses have been documented in the HPI. ROS Other: All systems not noted in ROS Statement are negative. Past Medical History Past Medical History: Atrial Fibrillation, Diabetes Mellitus, GI Bleed, Hyperlipidemia, Hypertension, Myocardial Infarction (SD), Musculoskeletal Disorder, Pneumonia, Skin Disorder, Sleep Apnea/CPAP/BIPAP, Thyroid Disorder Additional Past Medical History / Comment(s): "Have had 6 months of walking Pneumonia". Hx steroid induced gluacoma(resolved). Neurosarcoidosis, sarcoidosis which caused heart problems. Eczema. Hx [place] Palsy with right facial droop. Hx concussion at age 12, has some learning disablity-problems with spelling. MS. Graves Disease, " 7 auto immune diseases". DDD. CPAP use. "Weakness all over". Diarrhea and occasional blood in stool. "27 lesions on her brain". "INTERMITTE NT GI BLEED" AND PROBLEMS SWALLOWING. Last Myocardial Infarction Date:: 11/15/20 History of Any Multi-Drug Resistant Organisms: None Reported Past Surgical History: AICD, Cholecystectomy, Heart Catheterization Additional Past Surgical History / Comment(s): VENOGRAM W/CINEFLUROSCOPY. Past Anesthesia/Blood Transfusion Reactions: No Reported Reaction Additional Past Anesthesia/Blood Transfusion Reaction / Comment(s): Claustrophobia. Type of Cardiac Device: Permanent Pacemaker, AICD Device Placement Date:: 03/01 Past Psychological History: ADD/ADHD, Anxiety, Depression Smoking Status: Never smoker Past Alcohol Use History: None Reported Past Drug Use History: None Reported - Past Family History Mother Family Medical History: AFIB, Deep Vein Thrombosis (DVT) Father Family Medical History: Osteoarthritis (OA), Thyroid Disorder General Exam Limitations: no limitations General appearance: alert, in no apparent distress Head exam: Present: atraumatic, normocephalic, normal inspection Respiratory exam: Present: normal lung sounds bilaterally. Absent: respiratory distress, wheezes, rales, rhonchi, stridor Cardiovascular Exam: Present: regular rate, normal rhythm, normal heart sounds. Absent: systolic murmur, diastolic murmur, rubs, gallop, clicks GI/Abdominal exam: Present: soft, normal bowel sounds. Absent: distended, tenderness, guarding, rebound, rigid Neurological exam: Present: alert, oriented X3, CN II-XII intact Psychiatric exam: Present: normal affect, normal mood Skin exam: Present: warm, dry, intact, normal color. Absent: rash Course Vital Signs 07/07/21 07/07/21 07/07/21 16:19 17:25 19:01 Temperature 98.4 F 97.6 F Pulse Rate 70 70 Pulse Rate [ Pulse Oximetery ] Respiratory 18 14 Rate Blood Pressure 120/85 123/86 116/77 Blood Pressure [Right Arm] O2 Sat by Pulse 96 93 L Oximetry 07/07/21 23:47 Temperature Pulse Rate Pulse Rate [ 70 Pulse Oximetery ] Respiratory 20 Rate Blood Pressure Blood Pressure 116/82 [Right Arm] O2 Sat by Pulse 94 L Oximetry Medical Decision Making - Medical Decision Making This is a 45-year-old female who presents emergency department for abdominal pain. Lab work reveals an elevated white blood cell count, however this is much improved from the white blood cell count she had 3 days ago prior to discharge, and she is currently being treated with Augmentin. Lipase is elevated greater than 3 times limit of normal at a value of 1789 suggesting pancreatitis. Liver enzymes were also elevated. Ultrasound was obtained, however evaluation was significantly limited by the patient's body habitus. She has also had multiple CT scans in the past, and we opted to avoid an additional one at this time due to repeated radiation exposure. Patient has congestive heart failure and is "taking Lasix for fluid on her heart". This limits the amount of fluids we can give her, making it more difficult to treat the pancreatitis. Patient will be admitted to the hospital for management of pancreatitis with her multiple comorbidities. This case was discussed in detail with the attending ED physician. Presentation, findings, and treatment plan discussed in detail as well. - Lab Data Result diagrams: 07/07/21 17:11 07/07/21 17:11 Lab Results 07/07/21 07/07/21 07/07/21 Range/Units 17:11 17:11 17:11 WBC 13.8 H (3.8-10.6) k/uL RBC 5.48 H (3.80-5.40) m/uL Hgb 15.3 (11.4-16.0) gm/dL Hct 48.7 H (34.0-46.0) % MCV 88.8 (80.0-100.0) fL MCH 27.9 (25.0-35.0) pg MCHC 31.4 (31.0-37.0) g/dL RDW 13.9 (11.5-15.5) % Plt Count 210 (150-450) k/uL MPV 9.0 Neutrophils % 84 % Lymphocytes % 6 % Monocytes % 7 % Eosinophils % 1 % Basophils % 1 % Neutrophils # 11.6 H (1.3-7.7) k/uL Lymphocytes # 0.8 L (1.0-4.8) k/uL Monocytes # 0.9 (0-1.0) k/uL Eosinophils # 0.2 (0-0.7) k/uL Basophils # 0.1 (0-0.2) k/uL Sodium 135 L (137-145) mmol/L Potassium 3.7 (3.5-5.1) mmol/L Chloride 94 L (98-107) mmol/L Carbon Dioxide 33 H (22-30) mmol/L Anion Gap 8 mmol/L BUN 21 H (7-17) mg/dL Creatinine 0.50 L (0.52-1.04) mg/dL Est GFR (CKD-EPI)AfAm >90 (>60 ml/min/1.73 sqM) Est GFR (CKD-EPI)NonAf >90 (>60 ml/min/1.73 sqM) Glucose 114 H (74-99) mg/dL Calcium 8.6 (8.4-10.2) mg/dL Total Bilirubin 1.9 H (0.2-1.3) mg/dL AST 61 H (14-36) U/L ALT 91 H (4-34) U/L Alkaline Phosphatase 76 (38-126) U/L Lactate Dehydrogenase (313-618) U/L Troponin I 0.014 (0.000-0.034) ng/mL NT-Pro-B Natriuret Pep pg/mL Total Protein 7.4 (6.3-8.2) g/dL Albumin 3.9 (3.5-5.0) g/dL Amylase 213 H (30-110) U/L Lipase 1789 H (23-300) U/L 07/07/21 07/07/21 Range/Units 17:11 17:11 WBC (3.8-10.6) k/uL RBC (3.80-5.40) m/uL Hgb (11.4-16.0) gm/dL Hct (34.0-46.0) % MCV (80.0-100.0) fL MCH (25.0-35.0) pg MCHC (31.0-37.0) g/dL RDW (11.5-15.5) % Plt Count (150-450) k/uL MPV Neutrophils % % Lymphocytes % % Monocytes % % Eosinophils % % Basophils % % Neutrophils # (1.3-7.7) k/uL Lymphocytes # (1.0-4.8) k/uL Monocytes # (0-1.0) k/uL Eosinophils # (0-0.7) k/uL Basophils # (0-0.2) k/uL Sodium (137-145) mmol/L Potassium (3.5-5.1) mmol/L Chloride (98-107) mmol/L Carbon Dioxide (22-30) mmol/L Anion Gap mmol/L BUN (7-17) mg/dL Creatinine (0.52-1.04) mg/dL Est GFR (CKD-EPI)AfAm (>60 ml/min/1.73 sqM) Est GFR (CKD-EPI)NonAf (>60 ml/min/1.73 sqM) Glucose (74-99) mg/dL Calcium (8.4-10.2) mg/dL Total Bilirubin (0.2-1.3) mg/dL AST (14-36) U/L ALT (4-34) U/L Alkaline Phosphatase (38-126) U/L Lactate Dehydrogenase 626 H (313-618) U/L Troponin I (0.000-0.034) ng/mL NT-Pro-B Natriuret Pep 2210 pg/mL Total Protein (6.3-8.2) g/dL Albumin (3.5-5.0) g/dL Amylase (30-110) U/L Lipase (23-300) U/L - Radiology Data Radiology results: report reviewed, image reviewed Disposition Clinical Impression: Pancreatitis, acute, Sarcoidosis, CHF (congestive heart failure) Disposition: ADMITTED IP TO THIS HOSP
[2021-07-07 17:51] LABS: Basophils # (A) 0.1 k/uL (0-0.2); Basophils % (A) 1 %; Eosinophils # (A) 0.2 k/uL (0-0.7); Eosinophils % (A) 1 %; HCT 48.7 % (34.0-46.0); HGB 15.3 gm/dL (11.4-16.0); Lymphocytes # (A) 0.8 k/uL (1.0-4.8); Lymphocytes % (A) 6 %; MCH 27.9 pg (25.0-35.0); MCHC 31.4 g/dL (31.0-37.0); MCV 88.8 fL (80.0-100.0); Monocytes # (A) 0.9 k/uL (0-1.0); Monocytes % (A) 7 %; Neutrophils # (A) 11.6 k/uL (1.3-7.7); Neutrophils % (A) 84 %; Platelet Count 210 k/uL (150-450); RBC 5.48 m/uL (3.80-5.40); RDW 13.9 % (11.5-15.5); WBC 13.8 k/uL (3.8-10.6)
[2021-07-07 18:02] LABS: ALT 91 U/L (4-34); AST 61 U/L (14-36); African American GFR (CKD) >90 (>60 ml/min/1.73 sqM); Albumin 3.9 g/dL (3.5-5.0); Alkaline Phosphatase 76 U/L (38-126); Amylase 213 U/L (30-110); Anion Gap 8 mmol/L; Blood Urea Nitrogen 21 mg/dL (7-17); Calcium 8.6 mg/dL (8.4-10.2); Carbon Dioxide 33 mmol/L (22-30); Chloride 94 mmol/L (98-107); Glucose 114 mg/dL (74-99); Lipase 1789 U/L (23-300); Non-African American GFR(CKD) >90 (>60 ml/min/1.73 sqM); Potassium 3.7 mmol/L (3.5-5.1); Sodium 135 mmol/L (137-145); Total Bilirubin 1.9 mg/dL (0.2-1.3); Total Protein 7.4 g/dL (6.3-8.2)
[2021-07-07] MEDS ORDERED: KETOROLAC 15 MG/ML 1 ML VIAL IVP STA (18:19)
--- NOTE | 2021-07-07 19:16 | US ---
EXAMINATION TYPE: US abdomen limited DATE OF EXAM: 07/07/2021 COMPARISON: 08/16/2010 CLINICAL HISTORY: LUQ pain, elevated lipase and liver enzymes. Abn labs, pain EXAM MEASUREMENTS: Liver Length: 20.0 cm Gallbladder Wall: 0.1 cm CBD: 0.3 cm Right Kidney: 13.2 x 5.6 x 4.6 cm Morbidly obese pt, difficult exam Pancreas: wnl, tail obscured by overlying bowel gas Liver: Enlarged, difficult to penetrate to assess Gallbladder: wnl Evidence for sonographic Silva's sign: No CBD: wnl Right Kidney: wnl, lower pole gassed out IMPRESSION: No gallstones or dilated ducts. No discrete liver mass. Hepatomegaly.
[2021-07-07] MEDS ORDERED: NALOXONE 0.4 MG/ML 1 ML VIAL IV PRN (20:31)
[2021-07-07] MEDS: HYDROmorphone 0.5 MG/0.5 ML SYRINGE IVP PRN (23:42)
[2021-07-08 00:21] LABS: Glucose,Whole Blood 99 mg/dL (75-99)
--- NOTE | 2021-07-08 00:42 | P.HPIM ---
History of Present Illness H&P Date: 07/07/21 Chief Complaint: abd pain 45 year old female with sarcoidosis and restrictive cardiomyopathy, afib, DM she comes in with 1 day history of sudden onset abd pain, LUQ severe pain radiating to the chest and back. 8-1 0/10 in severity worse with food or drinking she denies any vomiting, diarrhea fever or chills. denies any alcohol drinking or history of gall stones. denies any recent travel or unsanitary food, denies any history of PUD. or GI bleeding . denies any active GI bleeding she was recently hospitalized for sarcoidosis/ lung disease and fluid overload. blood work in the ED showed evidence of acute pancreatitis Elevated liver enzymes Abdominal ultrasound no evidence of gallstones Review of Systems Pertinent positives as noted in HPI. All other systems were reviewed and are negative Past Medical History Past Medical History: Atrial Fibrillation, Diabetes Mellitus, GI Bleed, Hyperl ipidemia, Hypertension, Myocardial Infarction (MT), Musculoskeletal Disorder, Pneumonia, Skin Disorder, Sleep Apnea/CPAP/BIPAP, Thyroid Disorder Additional Past Medical History / Comment(s): "Have had 6 months of walking Pneumonia". Hx steroid induced gluacoma(resolved). Neurosarcoidosis, sarcoidosis which caused heart problems. Eczema. Hx [place] Palsy with right facial droop. Hx concussion at age 12, has some learning disablity-problems with spelling. MS. Graves Disease, " 7 auto immune diseases". DDD. CPAP use. "Weakness all over". Diarrhea and occasional blood in stool. "27 lesions on her brain". "INTERMITTENT GI BLEED" AND PROBLEMS SWALLOWING. Last Myocardial Infarction Date:: 11/15/20 History of Any Multi-Drug Resistant Organisms: None Reported Past Surgical History: AICD, Cholecystectomy, Heart Catheterization Additional Past Surgical History / Comment(s): VENOGRAM W/CINEFLUROSCOPY. Past Anesthesia/Blood Transfusion Reactions: No Reported Reaction Additional Past Anesthesia/Blood Transfusion Reaction / Comment(s): Claustrophobia. Type of Cardiac Device: Permanent Pacemaker, AICD Device Placement Date:: 03/01 Past Psychological History: ADD/ADHD, Anxiety, Depression Smoking Status: Never smoker Past Alcohol Use History: None Reported Past Drug Use History: None Reported - Past Family History Mother Family Medical History: AFIB, Deep Vein Thrombosis (DVT) Father Family Medical History: Osteoarthritis (OA), Thyroid Disorder Medications and Allergies Home Medications Medication Instructions Recorded Confirmed Type metFORMIN HCL [Glucophage] 1,000 mg PO BID-W/MEALS 11/10/17 07/07/21 History Ezetimibe [Zetia] 10 mg PO DAILY 10/06/18 07/07/21 History Apixaban [Eliquis] 5 mg PO BID #180 tab 02/15/19 07/07/21 Rx carvediloL [Coreg] 3.125 mg PO BID #180 tablet 02/16/19 07/07/21 Rx PARoxetine HCL 30 mg PO DAILY 06/23/19 07/07/21 History Artificial Tears-Hypromellose 1 drop BOTH EYES TID PRN 11/13/20 07/07/21 History [Artificial Tear Drops] Albuterol Inhaler [Ventolin Hfa 2 puff INHALATION RT-Q4H PRN 06/26/21 07/07/21 History Inhaler] Acetaminophen [Tylenol] 1,000 mg PO Q4-6H PRN 07/01/21 07/07/21 History Latanoprost/Pf [Latanoprost 0.005% 1 drop RIGHT EYE HS 07/01/21 07/07/21 History Eye Drop] Levothyroxine Sodium [Synthroid] 175 mcg PO DAILY 07/01/21 07/07/21 History Furosemide [Lasix] 40 mg PO DAILY #30 tablet 07/05/21 07/07/21 Rx glipiZIDE [Glucotrol] 5 mg PO AC-BRKFST #30 tab 07/05/21 07/07/21 Rx guaiFENesin-Coden 100-10MG/5ML 10 ml PO TID PRN #1000 ml 07/05/21 07/07/21 Rx [Robitussin AC] predniSONE 50 mg PO DAILY #30 tab 07/05/21 07/07/21 Rx Amoxic-Pot Clav 875-125Mg 1 tab PO Q12H 07/07/21 07/07/21 History [Augmentin 875-125] Allergies Allergy/AdvReac Type Severity Reaction Status Date / Time Dbenuxb-JBJ-XiU Reductase AdvReac FACIAL Verified 07/07/21 20:28 Inhibitor NUMBNESS [Yhemgds-Gcz-Vsc Reductase Inhibitor] SEAFOOD Allergy Rash/Hives Uncoded 07/07/21 16:23 Physical Exam Vitals: Vital Signs Temp Pulse Pulse Resp BP BP Pulse Ox 07/07/21 23:47 70 20 116/82 94 L 07/07/21 19:01 97.6 F 70 14 116/77 93 L 07/07/21 17:25 123/86 07/07/21 16:19 98.4 F 70 18 120/85 96 Intake and Output 07/07/21 07/07/21 07/08/21 14:59 22:59 06:59 Other: # Voids 1 Weight 122.47 kg 122.47 kg Constitutional: No acute distress, conversant, pleasant Eyes: Anicteric sclerae, moist conjunctiva, Pupils equal round reactive to light ENMT: NC/AT Oropharynx clear, no erythema, or exudates Neck: Supple, FROM, no masses, or JVD No carotid bruits No thyromegaly Lungs: Decreased breath sounds at left lung base Clear to percussion Normal respiratory effort, no accessory muscle use Cardiovascular: Heart regular in rate and rhythm, No murmurs, gallops, or rubs No peripheral edema Abdominal: Soft Discomfort to deep palpation of the epigastric and left upper quadrant., no guarding, rebound or rigidity Abdomen moving with respiration Normoactive bowel sounds No hepatomegaly, No splenomegaly No palpable mass No abdominal wall hernia noted Skin: Normal temperature, tone, texture, turgor No induration No subcutaneous nodules No rash, lesions No ulcers Extremities: No digital cyanosis No clubbing Pedal pulses intact and symmetrical Radial pulses intact and symmetrical No calf tenderness Psychiatric: Alert and oriented to person, place and time Appropriate affect fair judgement Neuro Muscles Strength 5/5 in all 4 extremities Sensation to light touch grossly present throughout Cranial nerves II-XII grossly intact No focal sensory deficits Lymphatics: no palpable cervical or supraclavicular , or inguinal lymph nodes Results CBC & Chem 7: 07/07/21 17:11 07/07/21 17:11 Labs: Abnormal Lab Results - Last 24 Hours (Table) 07/07/21 07/07/21 07/07/21 Range/Units 17:11 17:11 17:11 WBC 13.8 H (3.8-10.6) k/uL RBC 5.48 H (3.80-5.40) m/uL Hct 48.7 H (34.0-46.0) % Neutrophils # 11.6 H (1.3-7.7) k/uL Lymphocytes # 0.8 L (1.0-4.8) k/uL Sodium 135 L (137-145) mmol/L Chloride 94 L (98-107) mmol/L Carbon Dioxide 33 H (22-30) mmol/L BUN 21 H (7-17) mg/dL Creatinine 0.50 L (0.52-1.04) mg/dL Glucose 114 H (74-99) mg/dL Total Bilirubin 1.9 H (0.2-1.3) mg/dL AST 61 H (14-36) U/L ALT 91 H (4-34) U/L Lactate Dehydrogenase 626 H (313-618) U/L Amylase 213 H (30-110) U/L Lipase 1789 H (23-300) U/L Thrombosis Risk Factor Assmnt - Choose All That Apply Each Factor Represents 1 point: Age 41-60 years Other Risk Factors: No Thrombosis Risk Factor Assessment Total Risk Factor Score: 1 Thrombosis Risk Factor Assessment Level: Low Risk Assessment and Plan Assessment: Acute pancreatitis unknown underlying cause, sarcoidosis can very rarely pancreatitis Sarcoidosis Nothing by mouth IV fluids hydration with lactated Ringer Pain control with opiates When necessary Zofran Elevated liver enzymes Abdominal sonogram showed no gallstones and no dilated bile duct Chronic conditions 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 fib that is post ICD, on anticoagulation Hypertension continue coreg Diabetes mellitus Continue home medications, insulin sliding scale Follow-up renal function and liver function and CBC Full code DVT prophylaxis on eliquis length of stay more than 2 midnights
[2021-07-08] MEDS: LACTATED RINGERS 1,000 ML IV SCH ×4 (00:51→19:31)
[2021-07-08] MEDS: APIXABAN 5 MG TAB PO SCH ×3 (00:51→20:58)
[2021-07-08] MEDS: carvediloL 3.125 MG TAB PO SCH ×3 (00:51→17:42)
[2021-07-08] MEDS: IPRATROPIUM-ALBUTEROL 3 ML NEB INHALATION PRN (01:31)
[2021-07-08 01:39] LABS: Appearance,Urine Clear (Clear); Bilirubin,Urine Negative (Negative); Blood,Urine Negative (Negative); Color,Urine Yellow; Glucose,Urine (UA) Negative (Negative); Ketones,Urine Negative (Negative); Leukocyte Esterase,Urine Negative (Negative); Nitrite,Urine Negative (Negative); PH, Urine 6.5 (5.0-8.0); Protein,Urine Negative (Negative); Specific Gravity,Urine 1.016 (1.001-1.035)
[2021-07-08] MEDS: IBUPROFEN 400 MG TAB PO PRN ×3 (05:35→23:32)
[2021-07-08] MEDS: LEVOTHYROXINE 88 MCG TAB PO SCH (05:36)
[2021-07-08 07:29] LABS: Glucose,Whole Blood 129 mg/dL (75-99)
[2021-07-08] MEDS: ALBUTEROL NEBULIZED 2.5 MG/3 ML INHALATION PRN ×2 (08:08→22:48)
[2021-07-08] MEDS: INSULIN ASPART (NovoLOG) 100 UNIT/ML VIAL SQ SCH ×4 (08:18→20:59)
[2021-07-08] MEDS: predniSONE 50 MG TAB PO SCH (08:42)
[2021-07-08] MEDS: PARoxetine 10 MG TAB PO SCH (08:42)
[2021-07-08] MEDS: EZETIMIBE 10 MG TAB PO SCH (08:42)
--- NOTE | 2021-07-08 10:25 | P.PN ---
Subjective Progress Note Date: 07/08/21 Hospital course: Patient is a very pleasant 45-year-old female with a past medical history of MS, sarcoidosis, DM, restrictive cardiomyopathy with AICD, atrial fibrillation, hypertension, hyperlipidemia, and hypothyroidism. Patient presented to the emergency department with a chief complaint of abdominal pain that she described as severe and sudden onset left upper quadrant pain. She was seen and fully evaluated in the emergency department. She was found in leukocytosis with WBC count of 13.8, metabolic alkalosis with chloride 94, carbon dioxide 33, and anion gap of 8, elevated bilirubin of 1.9, AST 61, ALT 91, LDH 626, troponin 0.014, and proBNP 2210. Amylase elevated at 213 and lipase of 1789. Abdominal ultrasound negative for acute process revealing mild hepatomegaly. Patient was admitted under our services for acute pancreatitis Physical exam: Patient seen and fully evaluated at bedside this morning. Patient reports pain remains but has improved since arrival. Patient states she continues to have nausea but has had no further episodes of vomiting. At this time we will advance diet to clear liquids and monitor how patient tolerates. At this time patient to continue IV fluid hydration with LR to 125 mL's per hour, Dilaudid as needed for pain management, and Zofran as needed for nausea/vomiting. Vital signs reviewed and stable. General: Nontoxic, no distress and appears stated age. Obese Derm: Skin warm and dry, normal coloration for ethnicity. Head: Atraumatic, normocephalic and symmetric. Eyes: EOMs intact, no lid lag, and anicteric sclera Mouth: no lip lesions, mucus membranes moist Cardiovascular: regular rate and rhythm with normal S1S2, no murmur, positive posterior tibial pulses bilaterally, and cap refill < 2 seconds. Lungs: Respirations even, regular, and unlabored on room air. Lungs CTA bilaterally, no rhonchi, no rales, no wheezing, and no accessory muscle usage. Abdominal: soft, nontender to palpation, no guarding, no appreciable organomegaly Ext: ROM intact. No gross muscle atrophy, no edema, no contractures Neuro: Speech clear, face symmetrical and CN II-XII grossly intact with no noted focal neuro deficits Psych: Alert and oriented to person, place, time, and situation. Appropriate and pleasant affect. Assessment and Plan of Care: Acute pancreatitis, unclear cause possibly secondary to sarcoidosis versus hypertriglyceridemia Elevated liver enzymes -Continue with vigorous IV fluid hydration with LR to 125 mL's per hour -Advance diet to clear liquids and monitor how patient tolerates. -Symptomatic care and pain management. -Continue close monitoring with repeat a.m. labs. Hypertension -Monitor vital signs and continue daily medication regimen. Paroxysmal atrial fibrillation -Continue anticoagulation with Eliquis. Hyperlipidemia -Patient on Zetia and fenofibrate added secondary to hypertriglyceridemia with triglyceride level of 277. Other chronic conditions include history of MS, sarcoidosis, and restrictive cardiomyopathy. -Continue daily medication regimen and follow-up with appropriate specialists outpatient. CODE STATUS: Full code DVT prophylaxis: Eliquis Discussed with: Patient, patient's mother, and RN Anticipated discharge date: Likely tomorrow Anticipated discharge place: Home A total of 39 minutes was spent on the care of this complex patient more than 50% of the time was spent in counseling and care coordination.I reviewed the documentation as provided by the JENNIFER above, who is the original author of this note. I agree with the documented assessment and plan, with the following changes: none Objective - Vital Signs Vital signs: Vital Signs Temp 97.8 F 07/08/21 07:24 Pulse 66 07/08/21 08:18 Resp 18 07/08/21 07:24 BP 113/77 07/08/21 07:24 Pulse Ox 98 07/08/21 07:24 FiO2 Intake & Output 07/07/21 07/08/21 07/08/21 18:59 06:59 18:59 Weight 122.47 kg 122.47 kg Other: # Voids 2 - Labs CBC & Chem 7: 07/08/21 05:32 07/08/21 05:32 Labs: Abnormal Lab Results - Last 24 Hours (Table) 07/07/21 07/07/21 07/07/21 Range/Units 17:11 17:11 17:11 WBC 13.8 H (3.8-10.6) k/uL RBC 5.48 H (3.80-5.40) m/uL Hct 48.7 H (34.0-46.0) % Neutrophils # 11.6 H (1.3-7.7) k/uL Lymphocytes # 0.8 L (1.0-4.8) k/uL Sodium 135 L (137-145) mmol/L Chloride 94 L (98-107) mmol/L Carbon Dioxide 33 H (22-30) mmol/L BUN 21 H (7-17) mg/dL Creatinine 0.50 L (0.52-1.04) mg/dL Glucose 114 H (74-99) mg/dL POC Glucose (mg/dL) (75-99) mg/dL Total Bilirubin 1.9 H (0.2-1.3) mg/dL AST 61 H (14-36) U/L ALT 91 H (4-34) U/L Lactate Dehydrogenase 626 H (313-618) U/L Amylase 213 H (30-110) U/L Lipase 1789 H (23-300) U/L 07/08/21 Range/Units 07:28 WBC (3.8-10.6) k/uL RBC (3.80-5.40) m/uL Hct (34.0-46.0) % Neutrophils # (1.3-7.7) k/uL Lymphocytes # (1.0-4.8) k/uL Sodium (137-145) mmol/L Chloride (98-107) mmol/L Carbon Dioxide (22-30) mmol/L BUN (7-17) mg/dL Creatinine (0.52-1.04) mg/dL Glucose (74-99) mg/dL POC Glucose (mg/dL) 129 H (75-99) mg/dL Total Bilirubin (0.2-1.3) mg/dL AST (14-36) U/L ALT (4-34) U/L Lactate Dehydrogenase (313-618) U/L Amylase (30-110) U/L Lipase (23-300) U/L
[2021-07-08 10:48] LABS: Basophils # (A) 0.01 X 10*3/uL (0.00-0.10); Basophils % (A) 0.1 %; Eosinophils # (A) 0.21 X 10*3/uL (0.04-0.35); Eosinophils % (A) 1.8 %; HCT 46.4 % (37.2-46.3); HGB 14.6 g/dL (12.0-15.0); Immature Grans, Automated 0.5 %; Lymphocytes # (A) 0.83 X 10*3/uL (0.90-5.00); Lymphocytes % (A) 7.1 %; MCH 27.8 pg (27.0-32.0); MCHC 31.5 g/dL (32.0-37.0); MCV 88.4 fL (80.0-97.0); Mean Platelet Volume 12.2 fL (9.5-12.2); Monocytes # (A) 1.15 X 10*3/uL (0.20-1.00); Monocytes % (A) 9.8 %; NRBC Per 100 WBC 0 /100 WBCS (0.0-0.0); Neutrophils # (A) 9.49 X 10*3/uL (1.80-7.70); Neutrophils % (A) 80.7 %; Platelet Count 199 X 10*3/uL (140-440); RBC 5.25 X 10*6/uL (4.10-5.20); RDW 14.3 % (11.5-14.5); WBC 11.75 X 10*3/uL (4.50-10.00)
[2021-07-08 11:09] LABS: ALT 73 U/L (8-44); AST 37 U/L (13-35); African American GFR (CKD) 109.6 (60.0-200.0); Albumin 3.5 g/dL (3.8-4.9); Albumin/Globulin Ratio 1.26 (1.60-3.17); Alkaline Phosphatase 79 U/L (41-126); BUN/Creat Ratio 22.32 Ratio (12.00-20.00); Blood Urea Nitrogen 16.9 mg/dL (9.0-27.0); Carbon Dioxide 32.5 mmol/L (20.0-27.5); Chloride 96 mmol/L (96-109); Chol/HDL Ratio 3.77 Ratio; Globulin 2.7 g/dL (1.6-3.3); Glucose 113 mg/dL (70-110); Non-African American GFR(CKD) 94.5 (60.0-200.0); Potassium 4.2 mmol/L (3.5-5.5); Sodium 141 mmol/L (135-145); Total Protein 6.2 g/dL (6.2-8.2)
[2021-07-08 12:11] LABS: Glucose,Whole Blood 153 mg/dL (75-99)
[2021-07-08] MEDS: ONDANSETRON 4 MG/2 ML VIAL IVP PRN (13:42)
[2021-07-08 17:17] LABS: Glucose,Whole Blood 209 mg/dL (75-99)
[2021-07-08] MEDS ORDERED: CALCIUM CARBONATE 500 MG CHEWABLE PO PRN (19:40)
[2021-07-08 20:42] LABS: Glucose,Whole Blood 200 mg/dL (75-99)
[2021-07-09] MEDS: HYDROmorphone 0.5 MG/0.5 ML SYRINGE IVP PRN (04:05)
[2021-07-09] MEDS: LACTATED RINGERS 1,000 ML IV SCH ×2 (04:13→17:20)
[2021-07-09] MEDS: LEVOTHYROXINE 88 MCG TAB PO SCH (05:21)
[2021-07-09 07:06] LABS: Glucose,Whole Blood 123 mg/dL (75-99)
[2021-07-09] MEDS: INSULIN ASPART (NovoLOG) 100 UNIT/ML VIAL SQ SCH ×5 (07:14→21:13)
[2021-07-09] MEDS: predniSONE 50 MG TAB PO SCH (07:45)
[2021-07-09] MEDS: APIXABAN 5 MG TAB PO SCH ×2 (07:45→20:48)
[2021-07-09] MEDS: PARoxetine 10 MG TAB PO SCH (07:45)
[2021-07-09] MEDS: carvediloL 3.125 MG TAB PO SCH ×2 (07:45→17:19)
[2021-07-09] MEDS: EZETIMIBE 10 MG TAB PO SCH (07:45)
[2021-07-09] MEDS: FENOFIBRATE 160 MG TAB PO SCH (07:45)
[2021-07-09] MEDS: ONDANSETRON 4 MG/2 ML VIAL IVP PRN ×2 (07:49→17:19)
--- NOTE | 2021-07-09 09:34 | P.PN ---
Subjective Progress Note Date: 07/09/21 Hospital course: Patient is a very pleasant 45-year-old female with a past medical history of MS, sarcoidosis, DM, restrictive cardiomyopathy with AICD, atrial fibrillation, hypertension, hyperlipidemia, and hypothyroidism. Patient presented to the emergency department with a chief complaint of abdominal pain that she described as severe and sudden onset left upper quadrant pain. She was seen and fully evaluated in the emergency department. She was found in leukocytosis with WBC count of 13.8, metabolic alkalosis with chloride 94, carbon dioxide 33, and anion gap of 8, elevated bilirubin of 1.9, AST 61, ALT 91, LDH 626, troponin 0.014, and proBNP 2210. Amylase elevated at 213 and lipase of 1789. Abdominal ultrasound negative for acute process revealing mild hepatomegaly. Patient was admitted under our services for acute pancreatitis. Physical exam: Patient seen and fully evaluated at bedside this morning. Patient reports she was doing well and tolerating clear liquid diet until yesterday evening when she advance from popsicles to chicken broth. Patient reports after drinking chicken broth she experienced approximately 10 hours of severe left upper quadrant pain. At this time patient being medicated for pain management and nausea by RN. Patient to remain on clear liquid diet and instructed to avoid broth at this time and possibly reintroduced at a later time. Patient reports intermittent nausea but denies any further episodes of vomiting. Continue clear liquids and IV hydration with LR to 125 mL's per hour. Patient to continue to receive Dilaudid as needed for pain management and Zofran as needed for nausea/vomiting. Vital signs reviewed and stable. General: Nontoxic, no distress and appears stated age. Obese Derm: Skin warm and dry, normal coloration for ethnicity. Head: Atraumatic, normocephalic and symmetric. Eyes: EOMs intact, no lid lag, and anicteric sclera Mouth: no lip lesions, mucus membranes moist Cardiovascular: regular rate and rhythm with normal S1S2, no murmur, positive posterior tibial pulses bilaterally, and cap refill < 2 seconds. Lungs: Respirations even, regular, and unlabored on room air. Lungs CTA bilate rally, no rhonchi, no rales, no wheezing, and no accessory muscle usage. Abdominal: soft, nontender to palpation, no guarding, no appreciable organomegaly Ext: ROM intact. No gross muscle atrophy, no edema, no contractures Neuro: Speech clear, face symmetrical and CN II-XII grossly intact with no noted focal neuro deficits Psych: Alert and oriented to person, place, time, and situation. Appropriate and pleasant affect. Assessment and Plan of Care: Acute pancreatitis, unclear cause possibly secondary to sarcoidosis versus hypertriglyceridemia Elevated liver enzymes -Continue with vigorous IV fluid hydration with LR to 125 mL's per hour -Advance diet to clear liquids and monitor how patient tolerates. -Symptomatic care and pain management. -Continue close monitoring with repeat a.m. labs. Hypertension -Monitor vital signs and continue daily medication regimen with Zetia and fen ofibrate. Paroxysmal atrial fibrillation -Continue anticoagulation with Eliquis. Hyperlipidemia -Patient on Zetia and fenofibrate added secondary to hypertriglyceridemia with triglyceride level of 277. Hypothyroidism -Continue daily medication regimen of levothyroxine. Other chronic conditions include history of MS, sarcoidosis, and restrictive cardiomyopathy. -Continue daily medication regimen and follow-up with appropriate specialists outpatient. CODE STATUS: Full code DVT prophylaxis: Eliquis Discussed with: Patient, patient's mother, and RN Anticipated discharge date: Likely tomorrow Anticipated discharge place: Home A total of 35 minutes was spent on the care of this complex patient more than 50% of the time was spent in counseling and care coordination. Objective - Vital Signs Vital signs: Vital Signs Temp 97.4 F L 07/09/21 07:00 Pulse 70 07/09/21 07:00 Resp 14 07/09/21 07:00 BP 128/83 07/09/21 07:00 Pulse Ox 97 07/09/21 07:00 FiO2 Intake & Output 07/08/21 07/09/21 07/09/21 18:59 06:59 18:59 Intake Total 118 1500 118 Balance 118 1500 118 Intake: Intake, IV Titration 1000 Amount Lactated Ringers 1,000 ml 1000 @ 125 mls/hr IV .Q8H JOHN PAUL Rx#:[id number] Oral 118 500 118 Other: # Voids 1 1 - Labs CBC & Chem 7: 07/08/21 05:32 07/08/21 05:32 Labs: Abnormal Lab Results - Last 24 Hours (Table) 07/08/21 07/08/21 07/08/21 Range/Units 05:32 05:32 12:10 WBC 11.75 H (4.50-10.00) X 10*3/uL RBC 5.25 H (4.10-5.20) X 10*6/uL Hct 46.4 H (37.2-46.3) % MCHC 31.5 L (32.0-37.0) g/dL Immature Gran # 0.06 H (0.00-0.04) X 10*3/uL Neutrophils # 9.49 H (1.80-7.70) X 10*3/uL Lymphocytes # 0.83 L (0.90-5.00) X 10*3/uL Monocytes # 1.15 H (0.20-1.00) X 10*3/uL Carbon Dioxide 32.5 H (20.0-27.5) mmol/L BUN/Creatinine Ratio 22.32 H (12.00-20.00) Ratio Glucose 113 H (70-110) mg/dL POC Glucose (mg/dL) 153 H (75-99) mg/dL Total Bilirubin 1.70 H (0.30-1.20) mg/dL AST 37 H (13-35) U/L ALT 73 H (8-44) U/L Albumin 3.5 L (3.8-4.9) g/dL Albumin/Globulin Ratio 1.26 L (1.60-3.17) g/dL Triglycerides 277.00 H (0.00-149.00) mg/dL VLDL Cholesterol, Calc 55.40 H (5.00-40.00) mg/dL 07/08/21 07/08/21 07/09/21 Range/Units 17:16 20:41 07:05 WBC (4.50-10.00) X 10*3/uL RBC (4.10-5.20) X 10*6/uL Hct (37.2-46.3) % MCHC (32.0-37.0) g/dL Immature Gran # (0.00-0.04) X 10*3/uL Neutrophils # (1.80-7.70) X 10*3/uL Lymphocytes # (0.90-5.00) X 10*3/uL Monocytes # (0.20-1.00) X 10*3/uL Carbon Dioxide (20.0-27.5) mmol/L BUN/Creatinine Ratio (12.00-20.00) Ratio Glucose (70-110) mg/dL POC Glucose (mg/dL) 209 H 200 H 123 H (75-99) mg/dL Total Bilirubin (0.30-1.20) mg/dL AST (13-35) U/L ALT (8-44) U/L Albumin (3.8-4.9) g/dL Albumin/Globulin Ratio (1.60-3.17) g/dL Triglycerides (0.00-149.00) mg/dL VLDL Cholesterol, Calc (5.00-40.00) mg/dL
[2021-07-09] MEDS: HYDROmorphone 1 MG/ML 1 ML SYRINGE IVP PRN ×2 (09:44→17:20)
[2021-07-09 12:00] LABS: Glucose,Whole Blood 186 mg/dL (75-99)
[2021-07-09] MEDS: ALBUTEROL NEBULIZED 2.5 MG/3 ML INHALATION PRN (15:49)
[2021-07-09 16:44] LABS: Glucose,Whole Blood 228 mg/dL (75-99)
[2021-07-09] MEDS: IPRATROPIUM-ALBUTEROL 3 ML NEB INHALATION PRN (20:08)
[2021-07-09 20:54] LABS: Glucose,Whole Blood 153 mg/dL (75-99)
[2021-07-10] MEDS: LACTATED RINGERS 1,000 ML IV SCH ×3 (01:15→17:09)
[2021-07-10] MEDS: HYDROmorphone 0.5 MG/0.5 ML SYRINGE IVP PRN ×2 (01:56→22:47)
[2021-07-10] MEDS: LEVOTHYROXINE 88 MCG TAB PO SCH (05:59)
[2021-07-10] MEDS: IBUPROFEN 400 MG TAB PO PRN ×2 (06:01→20:52)
[2021-07-10] MEDS: ALBUTEROL NEBULIZED 2.5 MG/3 ML INHALATION PRN (07:17)
[2021-07-10 07:26] LABS: Glucose,Whole Blood 117 mg/dL (75-99)
[2021-07-10] MEDS: INSULIN ASPART (NovoLOG) 100 UNIT/ML VIAL SQ SCH ×4 (08:37→21:19)
[2021-07-10] MEDS: carvediloL 3.125 MG TAB PO SCH ×2 (08:40→17:27)
[2021-07-10] MEDS: FENOFIBRATE 160 MG TAB PO SCH (08:40)
[2021-07-10] MEDS: predniSONE 50 MG TAB PO SCH (08:40)
[2021-07-10] MEDS: EZETIMIBE 10 MG TAB PO SCH (08:40)
[2021-07-10] MEDS: PARoxetine 10 MG TAB PO SCH (08:40)
[2021-07-10] MEDS: APIXABAN 5 MG TAB PO SCH ×2 (08:40→20:53)
[2021-07-10 10:27] LABS: HCT 41.7 % (37.2-46.3); HGB 13.1 g/dL (12.0-15.0); MCH 28.4 pg (27.0-32.0); MCHC 31.4 g/dL (32.0-37.0); MCV 90.3 fL (80.0-97.0); Mean Platelet Volume 12.1 fL (9.5-12.2); NRBC Per 100 WBC 0 /100 WBCS (0.0-0.0); Platelet Count 186 X 10*3/uL (140-440); RBC 4.62 X 10*6/uL (4.10-5.20); RDW 14.4 % (11.5-14.5); WBC 11.72 X 10*3/uL (4.50-10.00)
[2021-07-10 11:02] LABS: Magnesium 1.9 mg/dL (1.5-2.4)
[2021-07-10 11:09] LABS: African American GFR (CKD) 120.4 (60.0-200.0); Albumin/Globulin Ratio 1.2 (1.60-3.17); Anion Gap 9.3 mmol/L (10.00-18.00); BUN/Creat Ratio 20.71 Ratio (12.00-20.00); Blood Urea Nitrogen 14.5 mg/dL (9.0-27.0); Calcium 8.9 mg/dL (8.7-10.3); Carbon Dioxide 31.7 mmol/L (20.0-27.5); Globulin 2.5 g/dL (1.6-3.3); Non-African American GFR(CKD) 103.9 (60.0-200.0); Potassium 4.2 mmol/L (3.5-5.5); Total Bilirubin 0.8 mg/dL (0.30-1.20); Total Protein 5.5 g/dL (6.2-8.2)
[2021-07-10] MEDS: IPRATROPIUM-ALBUTEROL 3 ML NEB INHALATION PRN ×2 (11:14→19:19)
[2021-07-10 11:58] LABS: Glucose,Whole Blood 119 mg/dL (75-99)
--- NOTE | 2021-07-10 12:50 | P.CNPUL ---
History of Present Illness Consult date: 07/10/21 Requesting physician: Laura Brush Reason for consult: other Chief complaint: Pancreatitis. History of present illness: Pulmonary consult dated 07/10/2021. 45-year-old female who presents to the emergency department, on July 07, complaining of abdominal pain. She felt like she was having a bulging in the abdomen, mostly in the left upper quadrant, with some pain shooting in the back area. She also describes pain in the chest, which was sharp and ripping and sensation. She felt bloated, and had been belching, as well as having nausea, and impaired appetite. Anytime she tried be something, apparently her symptoms got worse. She did not have any emesis. She did take Pepcid and Maalox, without lesions. The patient was recently admitted to the hospital between July 01 and July 05, for sarcoidosis, and right lung collapse. 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 Other medical history includes atrial fibrillation, diabetes, GI bleed, hyperlipidemia, hypertension, myocardial infarction, sleep apnea, Graves' disease, and multiple sclerosis. She also has a history of Escobedo's palsy, with right facial droop. Today's labs include a white count of 11.72, hemoglobin 13.1, hematocrit 41.7, with a normal platelet count. Sodium 142, potassium 4.2, chlorides 101, CO2 32, with a normal anion gap, and a BUN of 14.5 and creatinine 0.7. On admission, her amylase was 213, and her lipase was 1789. There have not been repeated. Her urine was ne gative. Ultrasound of the abdomen, showed no gallstones or dilated ducts, no discrete liver mass, and hepatomegaly. Review of Systems REVIEW OF SYSTEMS: CONSTITUTIONAL: [Negative.] NEUROLOGIC: [ Negative.] HEENT: [ Negative.] CARDIAC: [Negative.] PULMONARY: [Negative.] GI: Abdominal pain. : [Negative.] RHEUMATOLOGIC: [ Negative.] IMMUNOLOGIC: [ Negative.] ENDOCRINE: [Negative. ] DERMATOLOGIC: [Negative.] Past Medical History Past Medical History: Atrial Fibrillation, Diabetes Mellitus, GI Bleed, Hyperlipidemia, Hypertension, Myocardial Infarction ([place]), Musculoskeletal Disorder, Pneumonia, Skin Disorder, Sleep Apnea/CPAP/BIPAP, Thyroid Disorder Additional Past Medical History / Comment(s): "Have had 6 months of walking Pneumonia". Hx steroid induced gluacoma(resolved). Neurosarcoidosis, sarcoidosis which caused heart problems. Eczema. Hx [place] Palsy with right facial droop. Hx concussion at age 12, has some learning disablity-problems with spelling. MS. Graves Disease, " 7 auto immune diseases". DDD. CPAP use. "Weakness all over". Diarrhea and occasional blood in stool. "27 lesions on her brain". "INTERMITTENT GI BLEED" AND PROBLEMS SWALLOWING. Last Myocardial Infarction Date:: 11/15/20 History of Any Multi-Drug Resistant Organisms: None Reported Past Surgical History: AICD, Cholecystectomy, Heart Catheterization Additional Past Surgical History / Comment(s): VENOGRAM W/CINEFLUROSCOPY. Past Anesthesia/Blood Transfusion Reactions: No Reported Reaction Additional Past Anesthesia/Blood Transfusion Reaction / Comment(s): Claustrophobia. Type of Cardiac Device: Permanent Pacemaker, AICD Device Placement Date:: 03/01 Past Psychological History: ADD/ADHD, Anxiety, Depression Smoking Status: Never smoker Past Alcohol Use History: None Reported Past Drug Use History: None Reported - Past Family History Mother Family Medical History: AFIB, Deep Vein Thrombosis (DVT) Father Family Medical History: Osteoarthritis (OA), Thyroid Disorder Medications and Allergies Home Medications Medication Instructions Recorded Confirmed Type metFORMIN HCL [Glucophage] 1,000 mg PO BID-W/MEALS 11/10/17 07/07/21 History Ezetimibe [Zetia] 10 mg PO DAILY 10/06/18 07/07/21 History Apixaban [Eliquis] 5 mg PO BID #180 tab 02/15/19 07/07/21 Rx carvediloL [Coreg] 3.125 mg PO BID #180 tablet 02/16/19 07/07/21 Rx PARoxetine HCL 30 mg PO DAILY 06/23/19 07/07/21 History Artificial Tears-Hypromellose 1 drop BOTH EYES TID PRN 11/13/20 07/07/21 History [Artificial Tear Drops] Albuterol Inhaler [Ventolin Hfa 2 puff INHALATION RT-Q4H PRN 06/26/21 07/07/21 History Inhaler] Acetaminophen [Tylenol] 1,000 mg PO Q4-6H PRN 07/01/21 07/07/21 History Latanoprost/Pf [Latanoprost 0.005% 1 drop RIGHT EYE HS 07/01/21 07/07/21 History Eye Drop] Levothyroxine Sodium [Synthroid] 175 mcg PO DAILY 07/01/21 07/07/21 History Furosemide [Lasix] 40 mg PO DAILY #30 tablet 07/05/21 07/07/21 Rx glipiZIDE [Glucotrol] 5 mg PO AC-BRKFST #30 tab 07/05/21 07/07/21 Rx guaiFENesin-Coden 100-10MG/5ML 10 ml PO TID PRN #1000 ml 07/05/21 07/07/21 Rx [Robitussin AC] predniSONE 50 mg PO DAILY #30 tab 07/05/21 07/07/21 Rx Amoxic-Pot Clav 875-125Mg 1 tab PO Q12H 07/07/21 07/07/21 History [Augmentin 875-125] Allergies Allergy/AdvReac Type Severity Reaction Status Date / Time Cwvhmlg-SJA-NrM Reductase AdvReac FACIAL Verified 07/07/21 20:28 Inhibitor NUMBNESS [Yvbquip-Fqd-Wex Reductase Inhibitor] SEAFOOD Allergy Rash/Hives Uncoded 07/07/21 16:23 Physical Exam Osteopathic Statement: *. No significant issues noted on an osteopathic structural exam other than those noted in the History and Physical/Consult. Vitals: Vital Signs Temp Pulse Pulse Pulse Pulse Pulse Pulse 07/10/21 11:25 70 07/10/21 11:14 74 07/10/21 07:39 78 07/10/21 07:18 70 07/10/21 07:00 97.7 F 66 07/10/21 01:51 97.6 F 70 07/09/21 20:18 72 07/09/21 20:11 71 07/09/21 19:10 97.5 F L 70 07/09/21 15:57 76 07/09/21 15:51 72 07/09/21 13:49 70 77 70 75 07/09/21 13:45 98 F 70 Resp BP BP Pulse Ox Pulse Ox Pulse Ox Pulse Ox 07/10/21 11:25 07/10/21 11:14 07/10/21 07:39 07/10/21 07:18 07/10/21 07:00 16 149/72 93 L 07/10/21 01:51 16 119/81 95 07/09/21 20:18 07/09/21 20:11 07/09/21 19:10 16 108/69 92 L 07/09/21 15:57 07/09/21 15:51 07/09/21 13:49 98 97 93 L 07/09/21 13:45 16 100/67 91 L Pulse Ox 07/10/21 11:25 07/10/21 11:14 07/10/21 07:39 07/10/21 07:18 07/10/21 07:00 07/10/21 01:51 07/09/21 20:18 07/09/21 20:11 07/09/21 19:10 07/09/21 15:57 07/09/21 15:51 07/09/21 13:49 93 L 07/09/21 13:45 Intake and Output 07/09/21 07/10/21 07/10/21 22:59 06:59 14:59 Intake Total 180 Balance 180 Intake: Oral 180 Other: # Voids 1 3 No acute distress, oriented 3. No respiratory distress. Currently on room air. HEENT examination is grossly unremarkable. Neck supple. Full range of motion. No adenopathy thyromegaly or neck vein distention. Cardiovascular examination reveals regular rhythm rate. S1-S2 normal. No S3 or S4. No discernible murmur noted. Heart rate 70. Lungs reveal mostly clear breath sounds. Mild squeak is noted on the right side. No wheezes. No rhonchi. No crackles. Room air saturation 93%. Abdomen soft, without bowel sounds. No masses or tenderness. Extremities are intact. No cyanosis clubbing or edema. Skin is without rash or lesion. Neurologic examination is brief but nonfocal. Results - Laboratory Findings CBC and BMP: 07/10/21 07:11 07/10/21 07:11 Abnormal lab findings: Abnormal Labs 07/07/21 07/07/21 07/07/21 17:11 17:11 17:11 WBC 13.8 H RBC 5.48 H Hct 48.7 H MCHC Immature Gran # Neutrophils # 11.6 H Lymphocytes # 0.8 L Monocytes # Sodium 135 L Chloride 94 L Carbon Dioxide 33 H Anion Gap BUN 21 H Creatinine 0.50 L BUN/Creatinine Ratio Glucose 114 H POC Glucose (mg/dL) Total Bilirubin 1.9 H AST 61 H ALT 91 H Lactate Dehydrogenase 626 H Total Protein Albumin Albumin/Globulin Ratio Triglycerides VLDL Cholesterol, Calc Amylase 213 H Lipase 1789 H 07/08/21 07/08/21 07/08/21 05:32 05:32 07:28 WBC 11.75 H RBC 5.25 H Hct 46.4 H MCHC 31.5 L Immature Gran # 0.06 H Neutrophils # 9.49 H Lymphocytes # 0.83 L Monocytes # 1.15 H Sodium Chloride Carbon Dioxide 32.5 H Anion Gap BUN Creatinine BUN/Creatinine Ratio 22.32 H Glucose 113 H POC Glucose (mg/dL) 129 H Total Bilirubin 1.70 H AST 37 H ALT 73 H Lactate Dehydrogenase Total Protein Albumin 3.5 L Albumin/Globulin Ratio 1.26 L Triglycerides 277.00 H VLDL Cholesterol, Calc 55.40 H Amylase Lipase 07/08/21 07/08/21 07/08/21 12:10 17:16 20:41 WBC RBC Hct MCHC Immature Gran # Neutrophils # Lymphocytes # Monocytes # Sodium Chloride Carbon Dioxide Anion Gap BUN Creatinine BUN/Creatinine Ratio Glucose POC Glucose (mg/dL) 153 H 209 H 200 H Total Bilirubin AST ALT Lactate Dehydrogenase Total Protein Albumin Albumin/Globulin Ratio Triglycerides VLDL Cholesterol, Calc Amylase Lipase 07/09/21 07/09/21 07/09/21 07:05 11:59 16:43 WBC RBC Hct MCHC Immature Gran # Neutrophils # Lymphocytes # Monocytes # Sodium Chloride Carbon Dioxide Anion Gap BUN Creatinine BUN/Creatinine Ratio Glucose POC Glucose (mg/dL) 123 H 186 H 228 H Total Bilirubin AST ALT Lactate Dehydrogenase Total Protein Albumin Albumin/Globulin Ratio Triglycerides VLDL Cholesterol, Calc Amylase Lipase 07/09/21 07/10/21 07/10/21 20:53 07:11 07:11 WBC 11.72 H RBC Hct MCHC 31.4 L Immature Gran # Neutrophils # Lymphocytes # Monocytes # Sodium Chloride Carbon Dioxide 31.7 H Anion Gap 9.30 L BUN Creatinine BUN/Creatinine Ratio 20.71 H Glucose 114 H POC Glucose (mg/dL) 153 H Total Bilirubin AST ALT Lactate Dehydrogenase Total Protein 5.5 L Albumin 3.0 L Albumin/Globulin Ratio 1.20 L Triglycerides VLDL Cholesterol, Calc Amylase Lipase 07/10/21 07/10/21 07:25 11:55 WBC RBC Hct MCHC Immature Gran # Neutrophils # Lymphocytes # Monocytes # Sodium Chloride Carbon Dioxide Anion Gap BUN Creatinine BUN/Creatinine Ratio Glucose POC Glucose (mg/dL) 117 H 119 H Total Bilirubin AST ALT Lactate Dehydrogenase Total Protein Albumin Albumin/Globulin Ratio Triglycerides VLDL Cholesterol, Calc Amylase Lipase Assessment and Plan Assessment: Abdominal pain, thought be secondary to acute pancreatitis, of unclear etiology. Multisystem sarcoidosis, currently on prednisone therapy. Recent admission for right lung collapse, and acute hypoxemic respiratory failure, status post bronchoscopy. Multiple other medical problems and comorbidities. Plan: Plan dated 07/10/2021. The patient appears to be doing better. Her respiratory status is stable. Her abdominal pain is improved. I don't believe the prednisone is causing her pancreatitis. The most recent bronchoscopy was reviewed. Sampling, was completely negative. The patient should follow with my partner. She apparently has an appointment with him on Thursday. Additional recommendations and suggestions are forthcoming. The patient does not need antibiotics at this time. Time with Patient: Greater than 30
--- NOTE | 2021-07-10 13:45 | P.PN ---
Subjective Progress Note Date: 07/10/21 Hospital course: Patient is a very pleasant 45-year-old female with a past medical history of MS, sarcoidosis, DM, restrictive cardiomyopathy with AICD, atrial fibrillation, hypertension, hyperlipidemia, and hypothyroidism. Patient presented to the emergency department with a chief complaint of abdominal pain that she described as severe and sudden onset left upper quadrant pain. She was seen and fully evaluated in the emergency department. She was found in leukocytosis with WBC count of 13.8, metabolic alkalosis with chloride 94, carbon dioxide 33, and anion gap of 8, elevated bilirubin of 1.9, AST 61, ALT 91, LDH 626, troponin 0.014, and proBNP 2210. Amylase elevated at 213 and lipase of 1789. Abdominal ultrasound negative for acute process revealing mild hepatomegaly. Patient was admitted under our services for acute pancreatitis. Physical exam: Patient seen and fully evaluated at bedside this morning. She is tolerating clear liquid diet without any problem. That was advanced to full liquid diet. Pending stat lipase level. Vital signs reviewed and stable. General: Nontoxic, no distress and appears stated age. Obese Derm: Skin warm and dry, normal coloration for ethnicity. Head: Atraumatic, normocephalic and symmetric. Eyes: EOMs intact, no lid lag, and anicteric sclera Mouth: no lip lesions, mucus membranes moist Cardiovascular: regular rate and rhythm with normal S1S2, no murmur, positive posterior tibial pulses bilaterally, and cap refill < 2 seconds. Lungs: Respirations even, regular, and unlabored on room air. Lungs CTA bilaterally, no rhonchi, no rales, no wheezing, and no accessory muscle usage. Abdominal: soft, nontender to palpation, no guarding, no appreciable organomegaly Ext: ROM intact. No gross muscle atrophy, no edema, no contractures Neuro: Speech clear, face symmetrical and CN II-XII grossly intact with no noted focal neuro deficits Psych: Alert and oriented to person, place, time, and situation. Appropriate and pleasant affect. Assessment and Plan of Care: Acute pancreatitis, unclear etiology -Ultrasound negative for gallstones patient denies any history of alcohol abuse -Triglyceride levels slightly elevated -Elevated liver enzymes, amylase and lipase -Could be secondary to steroids -Continue with vigorous IV fluid hydration with LR to 125 mL's per hour -Patient cannot have an MRI due to her pacemaker/defibrillator -Advance diet to full liquid diet -Symptomatic care and pain management. -Unfortunately there is no GI specialist available at this facility. Patient will benefit from outpatient GI evaluation possibly at a tertiary care facility given her history of systemic sarcoidosis. -Discussed with pulmonary ,they wanted the patient to continue high-dose prednisone. -Continue close monitoring with repeat a.m. labs. Hypertension -Monitor vital signs and continue daily medication regimen with Zetia and fenofibrate. Paroxysmal atrial fibrillation -Continue anticoagulation with Eliquis. Hyperlipidemia -Patient on Zetia and fenofibrate added secondary to hypertriglyceridemia with triglyceride level of 277. Hypothyroidism -Continue daily medication regimen of levothyroxine. Other chronic conditions include history of MS, sarcoidosis, and restrictive cardiomyopathy. -Continue daily medication regimen and follow-up with appropriate specialists outpatient. CODE STATUS: Full code DVT prophylaxis: Eliquis Discussed with: Patient, patient's mother, and RN Anticipated discharge date: Likely tomorrow Anticipated discharge place: Home Objective - Vital Signs Vital signs: Vital Signs Temp 97.7 F 07/10/21 07:00 Pulse 70 07/10/21 11:25 Resp 16 07/10/21 07:00 BP 149/72 07/10/21 07:00 Pulse Ox 93 L 07/10/21 07:00 FiO2 Intake & Output 07/09/21 07/10/21 07/10/21 18:59 06:59 18:59 Intake Total 236 180 Balance 236 180 Intake: Oral 236 180 Other: # Voids 1 3 - Labs CBC & Chem 7: 07/10/21 07:11 07/10/21 07:11 Labs: Abnormal Lab Results - Last 24 Hours (Table) 07/09/21 07/09/21 07/10/21 Range/Units 16:43 20:53 07:11 WBC 11.72 H (4.50-10.00) X 10*3/uL MCHC 31.4 L (32.0-37.0) g/dL Carbon Dioxide (20.0-27.5) mmol/L Anion Gap (10.00-18.00) mmol/L BUN/Creatinine Ratio (12.00-20.00) Ratio Glucose (70-110) mg/dL POC Glucose (mg/dL) 228 H 153 H (75-99) mg/dL Total Protein (6.2-8.2) g/dL Albumin (3.8-4.9) g/dL Albumin/Globulin Ratio (1.60-3.17) g/dL 07/10/21 07/10/21 07/10/21 Range/Units 07:11 07:25 11:55 WBC (4.50-10.00) X 10*3/uL MCHC (32.0-37.0) g/dL Carbon Dioxide 31.7 H (20.0-27.5) mmol/L Anion Gap 9.30 L (10.00-18.00) mmol/L BUN/Creatinine Ratio 20.71 H (12.00-20.00) Ratio Glucose 114 H (70-110) mg/dL POC Glucose (mg/dL) 117 H 119 H (75-99) mg/dL Total Protein 5.5 L (6.2-8.2) g/dL Albumin 3.0 L (3.8-4.9) g/dL Albumin/Globulin Ratio 1.20 L (1.60-3.17) g/dL
[2021-07-10 17:26] LABS: Glucose,Whole Blood 227 mg/dL (75-99)
[2021-07-10 21:15] LABS: Glucose,Whole Blood 187 mg/dL (75-99)
[2021-07-11] MEDS: LACTATED RINGERS 1,000 ML IV SCH ×2 (01:04→08:41)
[2021-07-11] MEDS: LEVOTHYROXINE 88 MCG TAB PO SCH (05:32)
[2021-07-11 07:24] LABS: Glucose,Whole Blood 141 mg/dL (75-99)
[2021-07-11 07:58] VITALS: BP 114/77; RESP 18; TEMP 97.9
[2021-07-11] MEDS: IPRATROPIUM-ALBUTEROL 3 ML NEB INHALATION PRN (08:08)
[2021-07-11 08:19] VITALS: PULSE 72
[2021-07-11] MEDS: PARoxetine 10 MG TAB PO SCH (08:36)
[2021-07-11] MEDS: FENOFIBRATE 160 MG TAB PO SCH (08:36)
[2021-07-11] MEDS: predniSONE 50 MG TAB PO SCH (08:37)
[2021-07-11] MEDS: APIXABAN 5 MG TAB PO SCH (08:37)
[2021-07-11] MEDS: carvediloL 3.125 MG TAB PO SCH (08:37)
[2021-07-11] MEDS: INSULIN ASPART (NovoLOG) 100 UNIT/ML VIAL SQ SCH ×2 (08:38→12:44)
[2021-07-11] MEDS: EZETIMIBE 10 MG TAB PO SCH (08:38)
[2021-07-11 09:01] LABS: Basophils # (A) 0.01 X 10*3/uL (0.00-0.10); Basophils % (A) 0.1 %; Eosinophils # (A) 0.18 X 10*3/uL (0.04-0.35); Eosinophils % (A) 1.8 %; HCT 41.3 % (37.2-46.3); HGB 12.9 g/dL (12.0-15.0); Immature Grans, Automated 0.6 %; Lymphocytes % (A) 10.1 %; MCH 27.9 pg (27.0-32.0); MCHC 31.2 g/dL (32.0-37.0); MCV 89.2 fL (80.0-97.0); Mean Platelet Volume 12.1 fL (9.5-12.2); Monocytes # (A) 0.84 X 10*3/uL (0.20-1.00); Monocytes % (A) 8.5 %; NRBC Per 100 WBC 0 /100 WBCS (0.0-0.0); Neutrophils # (A) 7.83 X 10*3/uL (1.80-7.70); Neutrophils % (A) 78.9 %; Platelet Count 188 X 10*3/uL (140-440); RBC 4.63 X 10*6/uL (4.10-5.20); RDW 14.3 % (11.5-14.5); WBC 9.92 X 10*3/uL (4.50-10.00)
[2021-07-11 09:10] LABS: African American GFR (CKD) 120.4 (60.0-200.0); Albumin 3.1 g/dL (3.8-4.9); Albumin/Globulin Ratio 1.24 (1.60-3.17); Anion Gap 6.4 mmol/L (10.00-18.00); BUN/Creat Ratio 16.86 Ratio (12.00-20.00); Blood Urea Nitrogen 11.8 mg/dL (9.0-27.0); Calcium 9.1 mg/dL (8.7-10.3); Carbon Dioxide 33.6 mmol/L (20.0-27.5); Globulin 2.5 g/dL (1.6-3.3); Non-African American GFR(CKD) 103.9 (60.0-200.0); Potassium 4.6 mmol/L (3.5-5.5); Total Bilirubin 0.6 mg/dL (0.30-1.20); Total Protein 5.6 g/dL (6.2-8.2)
--- NOTE | 2021-07-11 11:11 | P.PN ---
Subjective Progress Note Date: 07/11/21 Principal diagnosis: Abdominal pain 45-year-old female who presents to the emergency department, on July 07, complaining of abdominal pain. She felt like she was having a bulging in the abdomen, mostly in the left upper quadrant, with some pain shooting in the back area. She also describes pain in the chest, which was sharp and ripping and sensation. She felt bloated, and had been belching, as well as having nausea, and impaired appetite. Anytime she tried be something, apparently her symptoms got worse. She did not have any emesis. She did take Pepcid and Maalox, wit hout lesions. The patient was recently admitted to the hospital between July 01 and July 05, for sarcoidosis, and right lung collapse. 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 Other medical history includes atrial fibrillation, diabetes, GI bleed, hyperlipidemia, hypertension, myocardial infarction, sleep apnea, Graves' disease, and multiple sclerosis. She also has a history of Escobedo's palsy, with right facial droop. Today's labs include a white count of 11.72, hemoglobin 13.1, hematocrit 41.7, with a normal platelet count. Sodium 142, potassium 4.2, chlorides 101, CO2 32, with a normal anion gap, and a BUN of 14.5 and creatinine 0.7. On admission, her amylase was 213, and her lipase was 1789. There have not been repeated. Her urine was negative. Ultrasound of the abdomen, showed no gallstones or dilated ducts, no discrete liver mass, and hepatomegaly. On 07/11/2021 patient is seen in follow-up on medical surgical floor. She is feeling better today, still complains of abdominal distention and gas in her abdomen especially with eating, but clinically has remained stable, and today's labs show significant improvement in patient's lipase level which was at 1789 and is currently down to 84. Antibiotics have been discontinued, patient rem ains on oral prednisone 50 mg daily for sarcoidosis. White blood cell count is improving and is down to 9.9, hemoglobin is 12.9, sodium is 141, potassium 4.6, chloride is 101, CO2 33, BUN is 11.8 creatinine 0.8. She states she is breathing comfortably, no complaints of shortness of breath, cough, no wheezing or congestion. Vital signs have been stable, oxygenation has been stable, room air pulse ox is 92%. Objective - Vital Signs Vital signs: Vital Signs Temp 97.9 F 07/11/21 07:17 Pulse 72 07/11/21 08:18 Resp 18 07/11/21 07:17 BP 114/77 07/11/21 07:17 Pulse Ox 92 L 07/11/21 07:17 FiO2 Intake & Output 07/10/21 07/11/21 07/11/21 18:59 06:59 18:59 Intake Total 180 Balance 180 Intake: Oral 180 Other: # Voids 1 1 - Exam GENERAL EXAM: Alert, very pleasant, 45-year-old white female on room air with a pulse ox of 92% comfortable in no apparent distress. HEAD: Normocephalic/atraumatic. EYES: Normal reaction of pupils, equal size. Conjunctiva pink, sclera white. NOSE: Clear with pink turbinates. THROAT: No erythema or exudates. NECK: No masses, no JVD, no thyroid enlargement, no adenopathy. CHEST: No chest wall deformity. Symmetrical expansion. LUNGS: Equal air entry with no crackles, wheeze, rhonchi or dullness. CVS: Regular rate and rhythm, normal S1 and S2, no gallops, no murmurs, no rubs ABDOMEN: Soft, but distended and tender, but soft No hepatosplenomegaly, normal bowel sounds, no guarding or rigidity. EXTREMITIES: No clubbing, no edema, no cyanosis, 2+ pulses and upper and lower extremities. MUSCULOSKELETAL: Muscle strength and tone normal. SPINE: No scoliosis or deformity SKIN: No rashes CENTRAL NERVOUS SYSTEM: Alert and oriented -3. No focal deficits, tone is normal in all 4 extremities. PSYCHIATRIC: Alert and oriented -3. Appropriate affect. Intact judgment and insight. - Labs CBC & Chem 7: 07/11/21 06:31 07/11/21 06:31 Labs: Abnormal Lab Results - Last 24 Hours (Table) 07/10/21 07/10/21 07/10/21 Range/Units 07:11 07:11 11:55 MCHC (32.0-37.0) g/dL Immature Gran # (0.00-0.04) X 10*3/uL Neutrophils # (1.80-7.70) X 10*3/uL Carbon Dioxide 31.7 H (20.0-27.5) mmol/L Anion Gap 9.30 L (10.00-18.00) mmol/L BUN/Creatinine Ratio 20.71 H (12.00-20.00) Ratio Glucose 114 H (70-110) mg/dL POC Glucose (mg/dL) 119 H (75-99) mg/dL Hemoglobin A1c 7.3 H (0.0-6.0) % Total Protein 5.5 L (6.2-8.2) g/dL Albumin 3.0 L (3.8-4.9) g/dL Albumin/Globulin Ratio 1.20 L (1.60-3.17) g/dL Lipase (14-63) U/L 07/10/21 07/10/21 07/11/21 Range/Units 17:24 21:14 06:31 MCHC 31.2 L (32.0-37.0) g/dL Immature Gran # 0.06 H (0.00-0.04) X 10*3/uL Neutrophils # 7.83 H (1.80-7.70) X 10*3/uL Carbon Dioxide (20.0-27.5) mmol/L Anion Gap (10.00-18.00) mmol/L BUN/Creatinine Ratio (12.00-20.00) Ratio Glucose (70-110) mg/dL POC Glucose (mg/dL) 227 H 187 H (75-99) mg/dL Hemoglobin A1c (0.0-6.0) % Total Protein (6.2-8.2) g/dL Albumin (3.8-4.9) g/dL Albumin/Globulin Ratio (1.60-3.17) g/dL Lipase (14-63) U/L 07/11/21 07/11/21 Range/Units 06:31 07:23 MCHC (32.0-37.0) g/dL Immature Gran # (0.00-0.04) X 10*3/uL Neutrophils # (1.80-7.70) X 10*3/uL Carbon Dioxide 33.6 H (20.0-27.5) mmol/L Anion Gap 6.40 L (10.00-18.00) mmol/L BUN/Creatinine Ratio (12.00-20.00) Ratio Glucose 134 H (70-110) mg/dL POC Glucose (mg/dL) 141 H (75-99) mg/dL Hemoglobin A1c (0.0-6.0) % Total Protein 5.6 L (6.2-8.2) g/dL Albumin 3.1 L (3.8-4.9) g/dL Albumin/Globulin Ratio 1.24 L (1.60-3.17) g/dL Lipase 84 H (14-63) U/L Assessment and Plan Plan: Assessment: #1. Acute abdominal pain, likely related to acute pancreatitis, unclear etiology, possibly drug-induced, improved significantly #2. Multisystem sarcoidosis, currently on prednisone therapy #3. Recent hospitalization for acute pneumonia, difficulty breathing, right lung collapse, and acute hypoxic respiratory failure, status post bronchoscopy #4. Chronic A. fib on an requests #5. Diabetes mellitus type 2 #6. Hypertension #7. Hyperlipidemia #8. Previous history of myocardial infarction #9. Sleep apnea #10. Hypothyroidism #11. History of Escobedo's palsy #12. Multiple sclerosis #13. Permanent pacemaker implantation and AICD placement #14. ADD/ADHD #15. Anxiety and depression Plan: Patient has remained stable from pulmonary perspective Antibiotics have been discontinued Patient's lipase has significantly improved Clinically she has remained stable Vital signs are stable She could be considered for discharge home today She will continue on oral prednisone 50 mg daily until she sees Dr. Sow tomorrow on 07/12/2021 I have personally seen and examined the patient, performed the documentation and the assessment and plan as written. Number of minutes spent on the visit: [10] Time with Patient: Less than 30
--- NOTE | 2021-07-11 13:37 | P.DS ---
Providers Date of admission: 07/07/21 21:13 Expected date of discharge: 07/11/21 Attending physician: Laura Brush MD Consults: 07/10/21 10:43 Consult Physician Routine Consulting Provider: Valentín Sow Consult Reason/Comments: acute pancreatitis possbly 2/2 prednisone Do you want consulting provider notified?: Yes Primary care physician: [facility] Course: Hospital course: Patient is a very pleasant 45-year-old female with a past medical history of MS, sarcoidosis, DM, restrictive cardiomyopathy with AICD, atrial fibrillation, hypertension, hyperlipidemia, and hypothyroidism. Patient presented to the emergency department with a chief complaint of abdominal pain that she described as severe and sudden onset left upper quadrant pain. She was seen and fully evaluated in the emergency department. She was found in leukocytosis with WBC count of 13.8, metabolic alkalosis with chloride 94, carbon dioxide 33, and anion gap of 8, elevated bilirubin of 1.9, AST 61, ALT 91, LDH 626, troponin 0.014, and proBNP 2210. Amylase elevated at 213 and lipase of 1789. Abdominal ultrasound negative for acute process revealing mild hepatomegaly. Patient was admitted under our services for acute pancreatitis. Physical exam: Patient seen and fully evaluated at bedside this morning. She is tolerating clear liquid diet without any problem. That was advanced to full liquid diet. Pending stat lipase level. Vital signs reviewed and stable. General: Nontoxic, no distress and appears stated age. Obese Derm: Skin warm and dry, normal coloration for ethnicity. Head: Atraumatic, normocephalic and symmetric. Eyes: EOMs intact, no lid lag, and anicteric sclera Mouth: no lip lesions, mucus membranes moist Cardiovascular: regular rate and rhythm with normal S1S2, no murmur, positive posterior tibial pulses bilaterally, and cap refill < 2 seconds. Lungs: Respirations even, regular, and unlabored on room air. Lungs CTA bilaterally, no rhonchi, no rales, no wheezing, and no accessory muscle usage. Abdominal: soft, nontender to palpation, no guarding, no appreciable organomegaly Ext: ROM intact. No gross muscle atrophy, no edema, no contractures Neuro: Speech clear, face symmetrical and CN II-XII grossly intact with no noted focal neuro deficits Psych: Alert and oriented to person, place, time, and situation. Appropriate and pleasant affect. Hospital course in detail the problem list: Acute pancreatitis, unclear etiology -Ultrasound negative for gallstones patient denies any history of alcohol abuse -Triglyceride levels slightly elevated she was started on fenofibrate -LFTs returned to baseline. Lasix trending down -Patient tolerating GI soft diet without any problems -Could be secondary to steroids. Per pulmonology patient needs steroids and less likely herpetic keratitis related to steroid -Symptoms improved with hydration and pain control -Patient cannot have an MRI due to her pacemaker/defibrillator. She might be able to do an MRI as an outpatient a different facility -Advance diet to full liquid diet -Symptomatic care and pain management. -Unfortunately there is no GI specialist available at this facility. Patient will benefit from outpatient GI evaluation possibly at a tertiary care facility given her history of systemic sarcoidosis. -Discussed with pulmonary ,they wanted the patient to continue high-dose prednisone. -Patient will benefit from outpatient GI follow-up and possibly an MRCP as an outpatient Hypertension -Monitor vital signs and continue daily medication regimen with Zetia and fenofibrate. Paroxysmal atrial fibrillation -Continue anticoagulation with Eliquis. Hyperlipidemia -Patient on Zetia and fenofibrate added secondary to hypertriglyceridemia with triglyceride level of 277. Hypothyroidism -Continue daily medication regimen of levothyroxine. Other chronic conditions include history of MS, sarcoidosis, and restrictive cardiomyopathy. -Continue daily medication regimen and follow-up with appropriate specialists outpatient. Patient Condition at Discharge: Stable Plan - Discharge Summary Discharge Rx Participant: No New Discharge Prescriptions: New Fenofibrate [Lofibra] 160 mg PO DAILY #30 tab HYDROcodone/APAP 5-325MG [[place] 5-325] 1 tab PO Q6HR PRN 3 Days #12 tab PRN Reason: Pain Continue metFORMIN HCL [Glucophage] 1,000 mg PO BID-W/MEALS Ezetimibe [Zetia] 10 mg PO DAILY Apixaban [Eliquis] 5 mg PO BID #180 tab carvediloL [Coreg] 3.125 mg PO BID #180 tablet PARoxetine HCL 30 mg PO DAILY Artificial Tears-Hypromellose [Artificial Tear Drops] 1 drop BOTH EYES TID PRN PRN Reason: Dry Eye(S) Albuterol Inhaler [Ventolin Hfa Inhaler] 2 puff INHALATION RT-Q4H PRN PRN Reason: Shortness Of Breath Levothyroxine Sodium [Synthroid] 175 mcg PO DAILY Furosemide [Lasix] 40 mg PO DAILY #30 tablet guaiFENesin-Coden 100-10MG/5ML [Robitussin AC] 10 ml PO TID PRN #1000 ml PRN Reason: Cough Acetaminophen [Tylenol] 1,000 mg PO Q4-6H PRN PRN Reason: Fever And/ Or Pain Latanoprost/Pf [Latanoprost 0.005% Eye Drop] 1 drop RIGHT EYE HS predniSONE 50 mg PO DAILY #30 tab glipiZIDE [Glucotrol] 5 mg PO AC-BRKFST #30 tab Discontinued Amoxic-Pot Clav 875-125Mg [Augmentin 875-125] 1 tab PO Q12H Discharge Medication List metFORMIN HCL [Glucophage] 1,000 mg PO BID-W/MEALS 11/10/17 [History] Ezetimibe [Zetia] 10 mg PO DAILY 10/06/18 [History] Apixaban [Eliquis] 5 mg PO BID #180 tab 02/15/19 [Rx] carvediloL [Coreg] 3.125 mg PO BID #180 tablet 02/16/19 [Rx] PARoxetine HCL 30 mg PO DAILY 06/23/19 [History] Artificial Tears-Hypromellose [Artificial Tear Drops] 1 drop BOTH EYES TID PRN 11/13/20 [History] Albuterol Inhaler [Ventolin Hfa Inhaler] 2 puff INHALATION RT-Q4H PRN 06/26/21 [History] Acetaminophen [Tylenol] 1,000 mg PO Q4-6H PRN 07/01/21 [History] Latanoprost/Pf [Latanoprost 0.005% Eye Drop] 1 drop RIGHT EYE HS 07/01/21 [History] Levothyroxine Sodium [Synthroid] 175 mcg PO DAILY 07/01/21 [History] Furosemide [Lasix] 40 mg PO DAILY #30 tablet 07/05/21 [Rx] glipiZIDE [Glucotrol] 5 mg PO AC-BRKFST #30 tab 07/05/21 [Rx] guaiFENesin-Coden 100-10MG/5ML [Robitussin AC] 10 ml PO TID PRN #1000 ml 07/05/21 [Rx] predniSONE 50 mg PO DAILY #30 tab 07/05/21 [Rx] Fenofibrate [Lofibra] 160 mg PO DAILY #30 tab 07/11/21 [Rx] HYDROcodone/APAP 5-325MG [[place] 5-325] 1 tab PO Q6HR PRN 3 Days #12 tab 07/11/21 [Rx] Follow up Appointment(s)/Referral(s): Amanda Sprague MD [STAFF PHYSICIAN] - 1 Week Valentín Sow MD [STAFF PHYSICIAN] - 1-2 Days Costa Falcon [Primary Care Provider] - 1-2 days Patient Instructions/Handouts: Pancreatitis (DC), Low Fat Diet (DC) Activity/Diet/Wound Care/Special Instructions: low fat, soft diet Discharge Disposition: HOME SELF-CARE
== END 2021-07-11 13:34 | disposition home or self-care (01) | DRG 439 ==
LOC: EC 15:34 → 6NMEDSUR 21:13
PROVIDERS: ADMIT Internal Medicine; ATTEND Internal Medicine
DX: K85.90 Acute pancreatitis without necrosis or infection, unspecified (principal); I42.5 Other restrictive cardiomyopathy; E87.3 Alkalosis; T38.0X5A Adverse effect of glucocorticoids and synthetic analogues, initial encounter; I50.9 Heart failure, unspecified; I48.0 Paroxysmal atrial fibrillation; D86.85 Sarcoid myocarditis; E03.9 Hypothyroidism, unspecified; E11.9 Type 2 diabetes mellitus without complications; E78.5 Hyperlipidemia, unspecified; F32.A Depression, unspecified; F40.240 Claustrophobia; F90.9 Attention-deficit hyperactivity disorder, unspecified type; G35 Multiple sclerosis; G47.30 Sleep apnea, unspecified; G51.0 Bell's palsy; I11.0 Hypertensive heart disease with heart failure; I25.2 Old myocardial infarction; E80.6 Other disorders of bilirubin metabolism; F41.9 Anxiety disorder, unspecified; Z79.01 Long term (current) use of anticoagulants; Z79.4 Long term (current) use of insulin; Z79.84 Long term (current) use of oral hypoglycemic drugs; Z79.890 Hormone replacement therapy; Z79.899 Other long term (current) drug therapy; Z95.810 Presence of automatic (implantable) cardiac defibrillator; Z98.890 Other specified postprocedural states; F81.81 Disorder of written expression; R13.10 Dysphagia, unspecified; G93.9 Disorder of brain, unspecified; Z83.2 Family history of diseases of the blood and blood-forming organs and certain disorders involving the immune mechanism; Z82.61 Family history of arthritis; Z82.49 Family history of ischemic heart disease and other diseases of the circulatory system; Z83.49 Family history of other endocrine, nutritional and metabolic diseases; Z87.01 Personal history of pneumonia (recurrent); Z88.8 Allergy status to other drugs, medicaments and biological substances; Z91.013 Allergy to seafood
CPT/HCPCS: 36415; 76705; 80053; 80061; 81003; 82150; 83036; 83615; 83690; 83735; 83880; 84484; 85025; 85027; 93005; 94640; 96361; 96374; 96375; 99285

== ENCOUNTER 2021-07-14 14:24 | Inpatient (IN) | payer OTHER ==
[2021-07-14] MEDS ORDERED: IPRATROPIUM-ALBUTEROL 3 ML NEB INHALATION STA (14:33)
[2021-07-14] MEDS ORDERED: SODIUM CHLORIDE 0.9% 500 ML 500 ML IV STA (14:33)
--- NOTE | 2021-07-14 14:47 | ED ---
General Adult HPI - General Source: patient, RN notes reviewed, old records reviewed Mode of arrival: ambulatory Limitations: no limitations <Joshua Herrera - Last Filed: 07/14/21 15:43> <Saúl Harden - Last Filed: 07/14/21 16:52> - General Chief complaint: Weakness Stated complaint: chest pain Time Seen by Provider: 07/14/21 14:24 - History of Present Illness Initial comments: This is a 45-year-old female who presents emergency department with past medical history significant for sarcoidosis and pancreatitis. Patient states she was in the hospital recently for pain days and breathing issues. Patient states she went home and yesterday she was fine however in the middle the night she woke up and had pain in the upper abdomen consistent with her pancreatitis. Patient states that lasted for about 8 hours and then it subsided since per patient states after that she got up was having some shortness of breath and her pulse ox was dipping into the 80s and she was finding it hard to make it to the bathr oom without having to hold on the wall and stop. Patient states she was a little lightheaded at that time. Patient denies any palpitations or chest pain. Patient denies any recent fever chills or cough. Patient denies any vomiting today or diarrhea. Patient states overall she just feels weak and she also took her blood pressure on occasion and her blood pressure was significantly lower than normal systolic blood pressure being in the 80s. EMS stated the patient's fever was 100.7 in route to the hospital they did give the patient aspirin (Joshua Herrera) - Related Data Home Medications Medication Instructions Recorded Confirmed metFORMIN HCL [Glucophage] 1,000 mg PO BID-W/MEALS 11/10/17 07/14/21 Ezetimibe [Zetia] 10 mg PO DAILY 10/06/18 07/14/21 PARoxetine HCL 30 mg PO DAILY 06/23/19 07/14/21 Artificial Tears-Hypromellose 1 drop BOTH EYES TID PRN 11/13/20 07/14/21 [Artificial Tear Drops] Albuterol Inhaler [Ventolin Hfa 2 puff INHALATION RT-Q4H PRN 06/26/21 07/14/21 Inhaler] Acetaminophen [Tylenol] 1,000 mg PO Q4-6H PRN 07/01/21 07/14/21 Latanoprost/Pf [Latanoprost 0.005% 1 drop RIGHT EYE HS 07/01/21 07/14/21 Eye Drop] Levothyroxine Sodium [Synthroid] 175 mcg PO DAILY 07/01/21 07/14/21 Fenofibrate [Lofibra] 160 mg PO DIRECTED 07/14/21 07/14/21 Previous Rx's Medication Instructions Recorded Apixaban [Eliquis] 5 mg PO BID #180 tab 02/15/19 carvediloL [Coreg] 3.125 mg PO BID #180 tablet 02/16/19 Furosemide [Lasix] 40 mg PO DAILY #30 tablet 07/05/21 glipiZIDE [Glucotrol] 5 mg PO AC-BRKFST #30 tab 07/05/21 guaiFENesin-Coden 100-10MG/5ML 10 ml PO TID PRN #1000 ml 07/05/21 [Robitussin AC] predniSONE 50 mg PO DAILY #30 tab 07/05/21 HYDROcodone/APAP 5-325MG [[place] 1 tab PO Q6HR PRN 3 Days #12 tab 07/11/21 5-325] Allergies Allergy/AdvReac Type Severity Reaction Status Date / Time Nofesdq-DPX-NwJ Reductase AdvReac FACIAL Verified 07/14/21 16:26 Inhibitor NUMBNESS [Obsxqdx-Ttd-Unr Reductase Inhibitor] SEAFOOD Allergy Rash/Hives Uncoded 07/07/21 16:23 Review of Systems ROS Other: All systems not noted in ROS Statement are negative. <Joshua Herrera - Last Filed: 07/14/21 15:43> ROS Other: All systems not noted in ROS Statement are negative. <Saúl Harden - Last Filed: 07/14/21 16:52> ROS Statement: Those systems with pertinent positive or pertinent negative responses have been documented in the HPI. Past Medical History Past Medical History: Atrial Fibrillation, Diabetes Mellitus, GI Bleed, Hyperlipidemia, Hypertension, Myocardial Infarction ([place]), Musculoskeletal Disorder, Pneumonia, Skin Disorder, Sleep Apnea/CPAP/BIPAP, Thyroid Disorder Additional Past Medical History / Comment(s): "Have had 6 months of walking Pneumonia". Hx steroid induced gluacoma(resolved). Neurosarcoidosis, sarcoidosis which caused heart problems. Eczema. Hx [place] Palsy with right facial droop. Hx concussion at age 12, has some learning disablity-problems with spelling. MS. Graves Disease, " 7 auto immune diseases". DDD. CPAP use. "Weakness all over". Diarrhea and occasional blood in stool. "27 lesions on her brain". "INTERMITTENT GI BLEED" AND PROBLEMS SWALLOWING. Last Myocardial Infarction Date:: 11/15/20 History of Any Multi-Drug Resistant Organisms: None Reported Past Surgical History: AICD, Cholecystectomy, Heart Catheterization Additional Past Surgical History / Comment(s): VENOGRAM W/CINEFLUROSCOPY. Past Anesthesia/Blood Transfusion Reactions: No Reported Reaction Additional Past Anesthesia/Blood Transfusion Reaction / Comment(s): Claustrophobia. Type of Cardiac Device: Permanent Pacemaker, AICD Device Placement Date:: 03/01 Past Psychological History: ADD/ADHD, Anxiety, Depression Smoking Status: Never smoker Past Alcohol Use History: None Reported Past Drug Use History: None Reported - Past Family History Mother Family Medical History: AFIB, Deep Vein Thrombosis (DVT) Father Family Medical History: Osteoarthritis (OA), Thyroid Disorder <Joshua Herrera - Last Filed: 07/14/21 15:43> General Exam Limitations: no limitations <Joshua Herrera - Last Filed: 07/14/21 15:43> - General Exam Comments Initial Comments: GENERAL: Patient is well-developed and well-nourished. Patient is nontoxic and well- hydrated and is in mild distress. ENT: Neck is soft and supple. No significant lymphadenopathy is noted. Oropharynx is clear. Moist mucous membranes. Neck has full range of motion without eliciting any pain. EYES: The sclera were anicteric and conjunctiva were pink and moist. Extraocular movements were intact and pupils were equal round and reactive to light. Eyelids were unremarkable. PULMONARY: Patient has a very wheezing and rhonchi throughout CARDIOVASCULAR: There is a regular rate and rhythm without any murmurs gallops or rubs. ABDOMEN: Soft and nontender with normal bowel sounds. SKIN: Skin is clear with no lesions or rashes and otherwise unremarkable. NEUROLOGIC: Patient is alert and oriented x3. Cranial nerves II through XII are grossly intact. Motor and sensory are also intact. Normal speech, volume and content. Symmetrical smile. MUSCULOSKELETAL: Normal extremities with adequate strength and full range of motion. LYMPHATICS: No significant lymphadenopathy is noted PSYCHIATRIC: Normal psychiatric evaluation. (Joshua Herrera) Course Vital Signs 07/14/21 07/14/21 07/14/21 14:26 14:40 14:51 Temperature 99.9 F H Pulse Rate 68 79 Pulse Rate [ 63 [facility] ] Respiratory 16 18 Rate Blood Pressure 112/67 O2 Sat by Pulse 94 L Oximetry 07/14/21 15:02 Temperature Pulse Rate 90 Pulse Rate [ [facility] ] Respiratory Rate Blood Pressure O2 Sat by Pulse Oximetry Medical Decision Making - Lab Data Result diagrams: 07/14/21 14:46 07/14/21 14:46 <Joshua Herrera - Last Filed: 07/14/21 15:43> - Lab Data Result diagrams: 07/14/21 14:46 07/14/21 14:46 <Saúl Harden - Last Filed: 07/14/21 16:52> - Medical Decision Making EKG shows paced rhythm at 76 bpm QRS is 126 QT interval 441 QTC is 472. Patient's EKG shows flutter waves X-ray shows infiltrate in the right base. Patient's pulse ox was 89-90 after breathing treatment. (Joshua Herrera) Patient was seen in the emergency department by Dr. Silva and admitted to this facility for inpatient evaluation and treatment. (Saúl Harden) - Lab Data Lab Results 07/14/21 07/14/21 07/14/21 Range/Units 14:46 14:46 14:46 WBC 24.4 H (3.8-10.6) k/uL RBC 4.52 (3.80-5.40) m/uL Hgb 13.3 (11.4-16.0) gm/dL Hct 39.8 (34.0-46.0) % MCV 88.0 (80.0-100.0) fL MCH 29.4 (25.0-35.0) pg MCHC 33.4 (31.0-37.0) g/dL RDW 14.6 (11.5-15.5) % Plt Count 145 L (150-450) k/uL MPV 9.2 Neutrophils % 94 % Lymphocytes % 3 % Monocytes % 3 % Eosinophils % 1 % Basophils % 0 % Neutrophils # 22.8 H (1.3-7.7) k/uL Lymphocytes # 0.7 L (1.0-4.8) k/uL Monocytes # 0.6 (0-1.0) k/uL Eosinophils # 0.2 (0-0.7) k/uL Basophils # 0.0 (0-0.2) k/uL PT 12.6 H (9.0-12.0) sec INR 1.2 H (<1.2) APTT 24.5 (22.0-30.0) sec Sodium 135 L (137-145) mmol/L Potassium 3.6 (3.5-5.1) mmol/L Chloride 98 (98-107) mmol/L Carbon Dioxide 30 (22-30) mmol/L Anion Gap 7 mmol/L BUN 16 (7-17) mg/dL Creatinine 0.71 (0.52-1.04) mg/dL Est GFR (CKD-EPI)AfAm >90 (>60 ml/min/1.73 sqM) Est GFR (CKD-EPI)NonAf >90 (>60 ml/min/1.73 sqM) Glucose 131 H (74-99) mg/dL Plasma Lactic Acid Raji (0.7-2.0) mmol/L Calcium 8.3 L (8.4-10.2) mg/dL Magnesium 1.3 L (1.6-2.3) mg/dL Total Bilirubin 0.9 (0.2-1.3) mg/dL AST 21 (14-36) U/L ALT 28 (4-34) U/L Alkaline Phosphatase 81 (38-126) U/L Troponin I (0.000-0.034) ng/mL NT-Pro-B Natriuret Pep pg/mL Total Protein 6.0 L (6.3-8.2) g/dL Albumin 3.2 L (3.5-5.0) g/dL Lipase (23-300) U/L 07/14/21 07/14/21 07/14/21 Range/Units 14:46 14:46 14:46 WBC (3.8-10.6) k/uL RBC (3.80-5.40) m/uL Hgb (11.4-16.0) gm/dL Hct (34.0-46.0) % MCV (80.0-100.0) fL MCH (25.0-35.0) pg MCHC (31.0-37.0) g/dL RDW (11.5-15.5) % Plt Count (150-450) k/uL MPV Neutrophils % % Lymphocytes % % Monocytes % % Eosinophils % % Basophils % % Neutrophils # (1.3-7.7) k/uL Lymphocytes # (1.0-4.8) k/uL Monocytes # (0-1.0) k/uL Eosinophils # (0-0.7) k/uL Basophils # (0-0.2) k/uL PT (9.0-12.0) sec INR (<1.2) APTT (22.0-30.0) sec Sodium (137-145) mmol/L Potassium (3.5-5.1) mmol/L Chloride (98-107) mmol/L Carbon Dioxide (22-30) mmol/L Anion Gap mmol/L BUN (7-17) mg/dL Creatinine (0.52-1.04) mg/dL Est GFR (CKD-EPI)AfAm (>60 ml/min/1.73 sqM) Est GFR (CKD-EPI)NonAf (>60 ml/min/1.73 sqM) Glucose (74-99) mg/dL Plasma Lactic Acid Raji 2.6 H* (0.7-2.0) mmol/L Calcium (8.4-10.2) mg/dL Magnesium (1.6-2.3) mg/dL Total Bilirubin (0.2-1.3) mg/dL AST (14-36) U/L ALT (4-34) U/L Alkaline Phosphatase (38-126) U/L Troponin I 0.021 (0.000-0.034) ng/mL NT-Pro-B Natriuret Pep 5450 pg/mL Total Protein (6.3-8.2) g/dL Albumin (3.5-5.0) g/dL Lipase (23-300) U/L 07/14/21 Range/Units 14:48 WBC (3.8-10.6) k/uL RBC (3.80-5.40) m/uL Hgb (11.4-16.0) gm/dL Hct (34.0-46.0) % MCV (80.0-100.0) fL MCH (25.0-35.0) pg MCHC (31.0-37.0) g/dL RDW (11.5-15.5) % Plt Count (150-450) k/uL MPV Neutrophils % % Lymphocytes % % Monocytes % % Eosinophils % % Basophils % % Neutrophils # (1.3-7.7) k/uL Lymphocytes # (1.0-4.8) k/uL Monocytes # (0-1.0) k/uL Eosinophils # (0-0.7) k/uL Basophils # (0-0.2) k/uL PT (9.0-12.0) sec INR (<1.2) APTT (22.0-30.0) sec Sodium (137-145) mmol/L Potassium (3.5-5.1) mmol/L Chloride (98-107) mmol/L Carbon Dioxide (22-30) mmol/L Anion Gap mmol/L BUN (7-17) mg/dL Creatinine (0.52-1.04) mg/dL Est GFR (CKD-EPI)AfAm (>60 ml/min/1.73 sqM) Est GFR (CKD-EPI)NonAf (>60 ml/min/1.73 sqM) Glucose (74-99) mg/dL Plasma Lactic Acid Raji (0.7-2.0) mmol/L Calcium (8.4-10.2) mg/dL Magnesium (1.6-2.3) mg/dL Total Bilirubin (0.2-1.3) mg/dL AST (14-36) U/L ALT (4-34) U/L Alkaline Phosphatase (38-126) U/L Troponin I (0.000-0.034) ng/mL NT-Pro-B Natriuret Pep pg/mL Total Protein (6.3-8.2) g/dL Albumin (3.5-5.0) g/dL Lipase 148 (23-300) U/L Disposition Time of Disposition: 15:44 <Joshua Herrera - Last Filed: 07/14/21 15:43> Decision Date: 07/14/21 <Saúl Harden - Last Filed: 07/14/21 16:52> Clinical Impression: Pneumonia, Hypomagnesemia, Hypoxia Disposition: ADMITTED IP TO THIS HOSP
[2021-07-14 14:54] LABS: Basophils % (A) 0 %; Eosinophils # (A) 0.2 k/uL (0-0.7); Eosinophils % (A) 1 %; HCT 39.8 % (34.0-46.0); HGB 13.3 gm/dL (11.4-16.0); Lymphocytes # (A) 0.7 k/uL (1.0-4.8); Lymphocytes % (A) 3 %; MCH 29.4 pg (25.0-35.0); MCHC 33.4 g/dL (31.0-37.0); Mean Platelet Volume 9.2; Monocytes # (A) 0.6 k/uL (0-1.0); Monocytes % (A) 3 %; Neutrophils # (A) 22.8 k/uL (1.3-7.7); Neutrophils % (A) 94 %; Platelet Count 145 k/uL (150-450); RBC 4.52 m/uL (3.80-5.40); RDW 14.6 % (11.5-15.5); WBC 24.4 k/uL (3.8-10.6)
[2021-07-14 15:04] LABS: ALT 28 U/L (4-34); AST 21 U/L (14-36); African American GFR (CKD) >90 (>60 ml/min/1.73 sqM); Albumin 3.2 g/dL (3.5-5.0); Alkaline Phosphatase 81 U/L (38-126); Anion Gap 7 mmol/L; Blood Urea Nitrogen 16 mg/dL (7-17); Calcium 8.3 mg/dL (8.4-10.2); Carbon Dioxide 30 mmol/L (22-30); Chloride 98 mmol/L (98-107); Glucose 131 mg/dL (74-99); Magnesium 1.3 mg/dL (1.6-2.3); Non-African American GFR(CKD) >90 (>60 ml/min/1.73 sqM); Potassium 3.6 mmol/L (3.5-5.1); Sodium 135 mmol/L (137-145); Total Bilirubin 0.9 mg/dL (0.2-1.3)
[2021-07-14 15:07] LABS: INR 1.2 (<1.2); Partial Thromboplastin Time 24.5 sec (22.0-30.0); Prothrombin Time 12.6 sec (9.0-12.0)
--- NOTE | 2021-07-14 15:19 | XR ---
EXAMINATION TYPE: XR chest 2V DATE OF EXAM: 07/14/2021 COMPARISON: 07/04/2021 HISTORY: Short of breath TECHNIQUE: FINDINGS: There is increased density over the right lower lobe consistent with airspace infiltrate. No heart fa ilure seen. There is left axillary pacemaker. There are chest leads. No pleural effusion. IMPRESSION: Right lower lobe pneumonia which is slightly improved compared to last exam. No heart ish lure seen.
[2021-07-14] MEDS ORDERED: PIPERACILLIN-TAZOBACTAM 3.375 GM in SODIUM CHLORIDE 0.9% 100 ML IVPB STA (15:38)
[2021-07-14] MEDS ORDERED: PNEUMONIA PROTOCOL UTILIZED 1 EACH MISC PO PRN (15:45)
[2021-07-14] MEDS ORDERED: AZITHROMYCIN 500 MG in SODIUM CHLORIDE 0.9% 250 ML IVPB STA (15:45)
[2021-07-14] MEDS: PIPERACILLIN-TAZOBACTAM 3.375 GM in SODIUM CHLORIDE 0.9% 100 ML IVPB SCH ×2 (16:30→23:24)
[2021-07-14] MEDS: MAGNESIUM SULFATE-D5W PMX 1 GM in DEXTROSE/WATER 1 100ML.BAG IVPB SCH ×2 (16:48→17:43)
[2021-07-14] MEDS ORDERED: NALOXONE 0.4 MG/ML 1 ML VIAL IV PRN (17:16)
[2021-07-14] MEDS ORDERED: MELATONIN 3 MG TABLET PO PRN (17:17)
[2021-07-14] MEDS ORDERED: ALPRAZolam 0.25 MG TAB PO PRN (17:17)
[2021-07-14] MEDS ORDERED: ARTIFICIAL TEARS-HYPROMELLOSE DROPS 15 ML BTL BOTH EYES PRN (17:18)
--- NOTE | 2021-07-14 17:26 | P.HPIM ---
History of Present Illness H&P Date: 07/14/21 Chief Complaint: ANXIETY Patient is a 45-year-old female with recently discovered sarcoidosis with pulmonary infiltrates currently on high-dose steroids, cardiomyopathy with ejection fraction 35% status post AICD, A. fib, diabetes, and multiple other comorbid conditions who presented to the hospital after hours of just feeling over both frontal and having low blood pressures. Patient wa admitted here from 07/07 through 07/11 for pancreatitis. She was supposed to see Dr. Sow after discharge however was unable to make that appointment. She was also hospita lized here from 07/01 through 07/05 with sarcoidosis flare at that point in time she was sent home on prednisone 50 mg daily to take for 30 days. On arrival to the ER here she complained of persistent diaphoresis and just not feeling good. She states that starting at 4 AM she started to have abdominal pain radiating up into her left shoulder consistent with her prior pancreatitis. She also felt was that she was hyperventilating, diaphoretic, and just overall not feeling well. She reports that she started to panic. She was calling her doctor in the pharmacy trying to get something for anxiety. She then started frequently monitoring her blood pressures for 1 hour and determined that they w ere bouncing around too much. Her low was 88/64 and this made her very nervous and she therefore presented to the ER. She reports that she has been taking her prednisone 50 mg daily since she left the hospital on 07/05. She has not been able to sleep, her blood sugars have been high, she has had facial flushing, she has felt very anxious and restless, and she has been diaphoretic. On arrival to the ER her temperature was 99.9 and her blood pressure is 112/67. Laboratory analysis showed a white blood cell count of 24.4, lactic acid 2.6, magnesium 1.3, platelets of 145. Chest x-ray showed possible left infiltrate. Patient seen and examined at bedside in the ED Pertinent positives and negatives as discussed in HPI, a complete review of systems was performed and all other systems are negative. Vital signs reviewed General: non toxic, no distress, appears at stated age Derm: warm, dry Head: atraumatic, normocephalic, symmetric Eyes: EOMI, no lid lag, anicteric sclera, pupils equal round reactive to light ENT: Nose and ears atraumatic, no thrush, no pharyngeal erythema Neck: No thyromegaly, no cervical lymphadenopathy, trachea midline, supple Mouth: no lip lesion, mucus membranes moist Cardiovascular: S1S2 reg, no murmur, positive posterior tibial pulse bilateral, no edema, capillary refill less than 2 seconds Lungs: velcro sounds with faint wheezing bilateral, no accessory muscle use Abdominal: soft, nontender to palpation, no guarding, no appreciable o rganomegaly, normal bowel sounds Ext: no gross muscle atrophy, muscle strength muscle strength 5 out of 5 in all 4 extremities, no contractures Neuro: Right sided facial drop with medal gaxe preference, EOMI light touch intact all 4 extremities, finger to nose within normal limits, Psych: Alert, oriented, appears anxious Assessment/Plan: Abdominal pain, Dyspnea, and hypoxia Anxiety Sarcoidosis exacerbation vs PNA -Concern for possible pulmonary etiology versus reaction to high-dose steroids -Check CT PE protocol as patient has had 2 recent hospitalizations -Start PPI - NO IVF as BNP elevated - Zosyn and zithromax - continue with prednisone - consult pulmonary Insomnia - Melatonin Chronic CHF with EF 35-50% A fib s/p AICD - Coreg-- monitor BP closely as patient states was low at home, normal in ED - lasix - no chronically on ACEI - Eliquis - Tele Hypomagnesemia - replace and repeat in AM DM 2 with hyperglycemia - hold oral meds - SSI - A1C 7.3 Recent pancreatitis - lipase negative - continue to monitor symptoms Dyslipidemia - fenofibrate, zetia Morbid obeisty with BM 43.6 - structured outpatient weight loss. The patient is admitted with an anticipated greater than 2 midnight stay for evaluation of Leukocytosis and hypoxia CODE STATUS:full DVT prophylaxis: Lovenox Discussed with: Patient, ED provider, nursing, and mother Anticipated discharge date: pending clinical course Anticipated discharge place[facility] home [facility] A total of 65 minutes was spent on the care of this complex patient more than 50% of the time was spent in counseling and care coordination. Past Medical History Past Medical History: Atrial Fibrillation, Heart Failure, Diabetes Mellitus, GI Bleed, Hyperlipidemia, Hypertension, Myocardial Infarction ([place]), Musculoskeletal Disorder, Pneumonia, Skin Disorder, Sleep Apnea/CPAP/BIPAP, Thyroid Disorder Additional Past Medical History / Comment(s): "Have had 6 months of walking Pneumonia". Hx steroid induced gluacoma(resolved). Neurosarcoidosis, sarcoidosis which caused heart problems. Eczema. Hx [place] Palsy with right facial droop. Hx concussion at age 12, has some learning disablity-problems with spelling. MSLazaro Graves Disease, " 7 auto immune diseases". DDD. CPAP use. "Weakness all over". Diarrhea and occasional blood in stool. "27 lesions on her brain". "INTERMITTENT GI BLEED" AND PROBLEMS SWALLOWING. Last Myocardial Infarction Date:: 11/15/20 History of Any Multi-Drug Resistant Organisms: None Reported Past Surgical History: AICD, Cholecystectomy, Heart Catheterization Additional Past Surgical History / Comment(s): VENOGRAM W/CINEFLUROSCOPY. Past Anesthesia/Blood Transfusion Reactions: No Reported Reaction Additional Past Anesthesia/Blood Transfusion Reaction / Comment(s): Claustrophobia. Type of Cardiac Device: Permanent Pacemaker, AICD Device Placement Date:: 03/01 Past Psychological History: ADD/ADHD, Anxiety, Depression Smoking Status: Never smoker Past Alcohol Use History: None Reported Past Drug Use History: None Reported - Past Family History Mother Family Medical History: AFIB, Deep Vein Thrombosis (DVT) Father Family Medical History: Osteoarthritis (OA), Thyroid Disorder Medications and Allergies Home Medications Medication Instructions Recorded Confirmed Type metFORMIN HCL [Glucophage] 1,000 mg PO BID-W/MEALS 11/10/17 07/14/21 History Ezetimibe [Zetia] 10 mg PO DAILY 10/06/18 07/14/21 History Apixaban [Eliquis] 5 mg PO BID #180 tab 02/15/19 07/14/21 Rx carvediloL [Coreg] 3.125 mg PO BID #180 tablet 02/16/19 07/14/21 Rx PARoxetine HCL 30 mg PO DAILY 06/23/19 07/14/21 History Artificial Tears-Hypromellose 1 drop BOTH EYES TID PRN 11/13/20 07/14/21 History [Artificial Tear Drops] Albuterol Inhaler [Ventolin Hfa 2 puff INHALATION RT-Q4H PRN 06/26/21 07/14/21 History Inhaler] Acetaminophen [Tylenol] 1,000 mg PO Q4-6H PRN 07/01/21 07/14/21 History Latanoprost/Pf [Latanoprost 0.005% 1 drop RIGHT EYE HS 07/01/21 07/14/21 History Eye Drop] Levothyroxine Sodium [Synthroid] 175 mcg PO DAILY 07/01/21 07/14/21 History Furosemide [Lasix] 40 mg PO DAILY #30 tablet 07/05/21 07/14/21 Rx glipiZIDE [Glucotrol] 5 mg PO AC-BRKFST #30 tab 07/05/21 07/14/21 Rx guaiFENesin-Coden 100-10MG/5ML 10 ml PO TID PRN #1000 ml 07/05/21 07/14/21 Rx [Robitussin AC] predniSONE 50 mg PO DAILY #30 tab 07/05/21 07/14/21 Rx HYDROcodone/APAP 5-325MG [[place] 1 tab PO Q6HR PRN 3 Days #12 tab 07/11/21 07/14/21 Rx 5-325] Fenofibrate [Lofibra] 160 mg PO DIRECTED 07/14/21 07/14/21 History Allergies Allergy/AdvReac Type Severity Reaction Status Date / Time Yfyzcik-EGU-YnT Reductase AdvReac FACIAL Verified 07/14/21 16:26 Inhibitor NUMBNESS [Coklgmb-Rsg-Cyd Reductase Inhibitor] SEAFOOD Allergy Rash/Hives Uncoded 07/07/21 16:23 Physical Exam Osteopathic Statement: *. No significant issues noted on an osteopathic structural exam other than those noted in the History and Physical/Consult. Vitals: Vital Signs Temp Pulse Pulse Resp BP Pulse Ox 07/14/21 17:11 99.1 F 87 20 118/70 97 07/14/21 16:00 99.1 F 78 18 120/66 97 07/14/21 15:02 90 07/14/21 14:51 79 07/14/21 14:40 63 18 07/14/21 14:26 99.9 F H 68 16 112/67 94 L Intake and Output 07/14/21 07/14/21 07/14/21 06:59 14:59 22:59 Other: Weight 122.47 kg Results CBC & Chem 7: 07/14/21 14:46 07/14/21 14:46 Labs: Abnormal Lab Results - Last 24 Hours (Table) 07/14/21 07/14/21 07/14/21 Range/Units 14:46 14:46 14:46 WBC 24.4 H (3.8-10.6) k/uL Plt Count 145 L (150-450) k/uL Neutrophils # 22.8 H (1.3-7.7) k/uL Lymphocytes # 0.7 L (1.0-4.8) k/uL PT 12.6 H (9.0-12.0) sec INR 1.2 H (<1.2) Sodium 135 L (137-145) mmol/L Glucose 131 H (74-99) mg/dL Plasma Lactic Acid Raji (0.7-2.0) mmol/L Calcium 8.3 L (8.4-10.2) mg/dL Magnesium 1.3 L (1.6-2.3) mg/dL Total Protein 6.0 L (6.3-8.2) g/dL Albumin 3.2 L (3.5-5.0) g/dL 07/14/21 Range/Units 14:46 WBC (3.8-10.6) k/uL Plt Count (150-450) k/uL Neutrophils # (1.3-7.7) k/uL Lymphocytes # (1.0-4.8) k/uL PT (9.0-12.0) sec INR (<1.2) Sodium (137-145) mmol/L Glucose (74-99) mg/dL Plasma Lactic Acid Raji 2.6 H* (0.7-2.0) mmol/L Calcium (8.4-10.2) mg/dL Magnesium (1.6-2.3) mg/dL Total Protein (6.3-8.2) g/dL Albumin (3.5-5.0) g/dL
[2021-07-14 17:30] LABS: Glucose,Whole Blood 202 mg/dL (75-99)
--- NOTE | 2021-07-14 17:30 | CT ---
EXAMINATION TYPE: CT chest angio for PE DATE OF EXAM: 07/14/2021 COMPARISON: 07/01/2021 HISTORY: SOB CT DLP: 906.2 mGycm Automated exposure control for dose reduction was used. CONTRAST: Performed with IV Contrast, patient injected with 100 mL of Isovue 370. There are Three-D postprocessed images. There is some reticular nodular pulmonary infiltrate in the r ight middle lobe. There is a mild interstitial increased density in the left lower lobe. There is no mediastinal adenopathy. Thoracic aorta is intact. No aneurysm or dissection. There are no hilar masses. There are bilateral bronchial lymph nodes up to 1 cm. No evidence of filling defect in the pulmonary arteries. There is some right perihilar pulmonary airspace infiltrate. No pericardial effusion. The thoracic spine is intact. No compression fracture. There is degenerative spurring in the lower th oracic spine. Sternum is intact. Upper abdominal soft tissues are intact. IMPRESSION: Bilateral pulmonary infiltrates as above and mainly in the right middle lobe and consistent with pneu monia. Mild bilateral bronchial adenopathy is likely inflammatory. No evidence of pulmonary embolism. Right middle lobe infiltrate and bronchial adenopathy are improved compared to old exam.
[2021-07-14] MEDS: PANTOPRAZOLE 40 MG TABLET PO SCH (17:43)
[2021-07-14] MEDS: carvediloL 3.125 MG TAB PO SCH (20:23)
[2021-07-14] MEDS: APIXABAN 5 MG TAB PO SCH (20:23)
[2021-07-14] MEDS: LATANOPROST 0.005% OPHTH DROPS 2.5 ML BTL RIGHT EYE SCH (20:23)
[2021-07-15] MEDS: ONDANSETRON 4 MG/2 ML VIAL IVP PRN (02:48)
[2021-07-15] MEDS: ACETAMINOPHEN TAB 325 MG TAB PO PRN ×2 (04:12→10:21)
[2021-07-15] MEDS: ALBUTEROL HFA INHALER INHALATION PRN ×6 (04:16→23:12)
[2021-07-15] MEDS: carvediloL 3.125 MG TAB PO SCH ×2 (08:44→19:59)
[2021-07-15] MEDS: EZETIMIBE 10 MG TAB PO SCH (08:44)
[2021-07-15] MEDS: FUROSEMIDE 40 MG TAB PO SCH (08:44)
[2021-07-15] MEDS: LEVOTHYROXINE 88 MCG TAB PO SCH (08:44)
[2021-07-15] MEDS: PANTOPRAZOLE 40 MG TABLET PO SCH ×2 (08:44→16:18)
[2021-07-15] MEDS: APIXABAN 5 MG TAB PO SCH ×2 (08:44→19:59)
[2021-07-15] MEDS: PARoxetine 10 MG TAB PO SCH (08:56)
[2021-07-15] MEDS ORDERED: AZITHROMYCIN 500 MG in SODIUM CHLORIDE 0.9% 250 ML IVPB SCH (09:00)
[2021-07-15] MEDS ORDERED: ENOXAPARIN 40 MG/0.4 ML SYRINGE SQ SCH (09:00)
[2021-07-15] MEDS ORDERED: predniSONE 50 MG TAB PO SCH (09:00)
[2021-07-15] MEDS: PIPERACILLIN-TAZOBACTAM 3.375 GM in SODIUM CHLORIDE 0.9% 100 ML IVPB SCH (10:18)
[2021-07-15 10:49] LABS: Basophils % (A) 0 %; Eosinophils % (A) 0 %; HCT 41.6 % (34.0-46.0); HGB 13.3 gm/dL (11.4-16.0); Lymphocytes # (A) 0.4 k/uL (1.0-4.8); Lymphocytes % (A) 3 %; MCH 29.3 pg (25.0-35.0); MCV 91.5 fL (80.0-100.0); Mean Platelet Volume 8.7; Monocytes # (A) 0.3 k/uL (0-1.0); Monocytes % (A) 2 %; Neutrophils # (A) 13.7 k/uL (1.3-7.7); Neutrophils % (A) 94 %; Platelet Count 121 k/uL (150-450); RBC 4.55 m/uL (3.80-5.40); WBC 14.5 k/uL (3.8-10.6)
[2021-07-15 11:25] LABS: ALT 32 U/L (4-34); AST 26 U/L (14-36); African American GFR (CKD) >90 (>60 ml/min/1.73 sqM); Anion Gap 9 mmol/L; Blood Urea Nitrogen 16 mg/dL (7-17); Calcium 7.7 mg/dL (8.4-10.2); Carbon Dioxide 28 mmol/L (22-30); Chloride 99 mmol/L (98-107); Glucose 181 mg/dL (74-99); Lipase 132 U/L (23-300); Magnesium 1.7 mg/dL (1.6-2.3); Non-African American GFR(CKD) >90 (>60 ml/min/1.73 sqM); Potassium 4.6 mmol/L (3.5-5.1); Sodium 136 mmol/L (137-145)
[2021-07-15] MEDS ORDERED: VANCOMYCIN IV PER PHARMACY 1 EACH MISC MISCELLANE PRN (12:33)
[2021-07-15] MEDS: VANCOMYCIN 2,000 MG in SODIUM CHLORIDE 0.9% 500 ML 500 ML IVPB SCH (14:57)
--- NOTE | 2021-07-15 15:08 | P.CNPUL ---
History of Present Illness Consult date: 07/15/21 Requesting physician: Janet Valderrama Reason for consult: dyspnea Chief complaint: Abdominal pain, nausea History of present illness: Physical very pleasant 45-year-old female patient with a known history of previous admission for acute pancreatitis, atrial fibrillation, diabetes mellitus, GI bleeding, hypertension, hyperlipidemia, cardiomyopathy status post AICD placement, anxiety/depression. 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 She had undergone bronchoscopy with biopsies on 06/27/[address] Sow. She was found to have confluent no nnecrotizing granulomas and chronic inflammation. Negative for malignancy. The right middle lobe collapse. She is on an antibiotic and prednisone 50 mg daily. She presented to the emergency room again yesterday with complaints of abdominal discomfort that felt similar to her previous pancreatitis. She did develop anxiety with shortness of breath. She had another CT angiogram that revealed no evidence of pulmonary embolism. There is bilateral pulmonary atelectasis mainly in the right middle lobe consistent with postobstructive atelectasis however it is improved compared to previous. White count 14.5. Hemoglobin 13.2. Platelets 121. Sodium 136. Potassium 4.6. Bicarb 20. BUN 16. Creatinine 0.7. Initial lactic acid 2.8 currently 1.7. Initial blood cultures revealing Staphylococcus aureus. The patient was stating she had some edema and drainage from her right brachial IV site from her previous admission. She was just discharged home on 07/11/2021. She been initiated on vancomycin and azithromycin along with Zosyn. She received 500 mL of fluid resuscitation. She is seen today the patient on the regular medical. She is currently awake and alert in no acute distress. She denies any worsening shortness of breath. Occasional cough with some blood-tinged sputum. She is maintaining O2 saturation in the 90s on 2 L/m per nasal cannula. She's afebrile. Her lipase w as 148 yesterday. Down to 132 today. ProBNP 5450. Echocardiogram from previous admission revealed moderately impaired left ventricular systolic function with ejection fraction of 35-40%. She is continued on oral diuretics. She is anticoagulated with Eliquis. Review of Systems REVIEW OF SYSTEMS: CONSTITUTIONAL: Denies any recent significant weight loss or weight gain. EYES: Denies change in vision. EARS, NOSE, MOUTH, THROAT: Denies headaches, denies sore throat. CARDIOVASCULAR: Denies chest pain, palpitations or syncopal episodes. RESPIRATORY: Positive for shortness of breath, cough, congestion, hemoptysis. GASTROINTESTINAL: Positive for abdominal pain GENITOURINARY: Denies hematuria, denies infections. MUSKULOSKELETAL: Denies pain, denies swelling. INTEGUMENTARY: Denies rash, denies eczema. NEUROLOGICAL: Denies recent memory loss, no recent seizure activity. PSYCHIATRIC: Denies anxiety, denies depression. HEMATOLOGIC/LYMPHATIC: Denies anemia, denies enlarged lymph nodes. Past Medical History Past Medical History: Atrial Fibrillation, Heart Failure, Diabetes Mellitus, GI Bleed, Hyperlipidemia, Hypertension, Myocardial Infarction ([place]), Musculoskeletal Disorder, Pneumonia, Skin Disorder, Sleep Apnea/CPAP/BIPAP, Thyroid Disorder Additional Past Medical History / Comment(s): "Have had 6 months of walking Pneumonia". Hx steroid induced gluacoma(resolved). Neurosarcoidosis, sarcoidosis which caused heart problems. Eczema. Hx [place] Palsy with right facial droop. Hx concussion at age 12, has some learning disablity-problems with spelling. MS. Graves Disease, " 7 auto immune diseases". DDD. CPAP use. "Weakness all over". Diarrhea and occasional blood in stool. "27 lesions on her brain". "INTERMITTENT GI BLEED" AND PROBLEMS SWALLOWING. Last Myocardial Infarction Date:: 11/15/20 History of Any Multi-Drug Resistant Organisms: None Reported Past Surgical History: AICD, Cholecystectomy, Heart Catheterization Additional Past Surgical History / Comment(s): VENOGRAM W/CINEFLUROSCOPY. Past Anesthesia/Blood Transfusion Reactions: No Reported Reaction Additional Past Anesthesia/Blood Transfusion Reaction / Comment(s): Claustrophobia. Type of Cardiac Device: Permanent Pacemaker, AICD Device Placement Date:: 03/01 Past Psychological History: ADD/ADHD, Anxiety, Depression Smoking Status: Never smoker Past Alcohol Use History: None Reported Past Drug Use History: None Reported - Past Family History Mother Family Medical History: AFIB, Deep Vein Thrombosis (DVT) Father Family Medical History: Osteoarthritis (OA), Thyroid Disorder Medications and Allergies Home Medications Medication Instructions Recorded Confirmed Type metFORMIN HCL [Glucophage] 1,000 mg PO BID-W/MEALS 11/10/17 07/14/21 History Ezetimibe [Zetia] 10 mg PO DAILY 10/06/18 07/14/21 History Apixaban [Eliquis] 5 mg PO BID #180 tab 02/15/19 07/14/21 Rx carvediloL [Coreg] 3.125 mg PO BID #180 tablet 02/16/19 07/14/21 Rx PARoxetine HCL 30 mg PO DAILY 06/23/19 07/14/21 History Artificial Tears-Hypromellose 1 drop BOTH EYES TID PRN 11/13/20 07/14/21 History [Artificial Tear Drops] Albuterol Inhaler [Ventolin Hfa 2 puff INHALATION RT-Q4H PRN 06/26/21 07/14/21 History Inhaler] Acetaminophen [Tylenol] 1,000 mg PO Q4-6H PRN 07/01/21 07/14/21 History Latanoprost/Pf [Latanoprost 0.005% 1 drop RIGHT EYE HS 07/01/21 07/14/21 History Eye Drop] Levothyroxine Sodium [Synthroid] 175 mcg PO DAILY 07/01/21 07/14/21 History Furosemide [Lasix] 40 mg PO DAILY #30 tablet 07/05/21 07/14/21 Rx glipiZIDE [Glucotrol] 5 mg PO AC-BRKFST #30 tab 07/05/21 07/14/21 Rx guaiFENesin-Coden 100-10MG/5ML 10 ml PO TID PRN #1000 ml 07/05/21 07/14/21 Rx [Robitussin AC] predniSONE 50 mg PO DAILY #30 tab 07/05/21 07/14/21 Rx HYDROcodone/APAP 5-325MG [[place] 1 tab PO Q6HR PRN 3 Days #12 tab 07/11/21 07/14/21 Rx 5-325] Fenofibrate [Lofibra] 160 mg PO DIRECTED 07/14/21 07/14/21 History Allergies Allergy/AdvReac Type Severity Reaction Status Date / Time Ayzevoi-JBD-VdD Reductase AdvReac FACIAL Verified 07/14/21 16:26 Inhibitor NUMBNESS [Hpehlsa-Jso-Tfo Reductase Inhibitor] SEAFOOD Allergy Rash/Hives Uncoded 07/07/21 16:23 Physical Exam Vitals: Vital Signs Temp Pulse Pulse Resp BP BP BP 07/15/21 08:00 98.6 F 50 L 18 102/64 07/15/21 01:54 98.5 F 70 19 135/84 07/14/21 19:13 98.3 F 70 17 100/63 07/14/21 17:49 98.7 F 73 16 99/61 07/14/21 17:11 99.1 F 87 20 118/70 07/14/21 16:00 99.1 F 78 18 120/66 07/14/21 15:02 90 07/14/21 14:51 79 Pulse Ox 07/15/21 08:00 92 L 07/15/21 01:54 97 07/14/21 19:13 96 07/14/21 17:49 97 07/14/21 17:11 97 07/14/21 16:00 97 07/14/21 15:02 07/14/21 14:51 Intake and Output 07/14/21 07/15/21 07/15/21 22:59 06:59 14:59 Intake Total 120 90 Balance 120 90 Intake: Oral 120 90 Other: Voiding Method Toilet # Voids 1 2 1 Weight 122.47 kg GENERAL EXAM: Alert, pleasant 45-year-old female patient, on 2 L nasal cannula, fairly comfortable in no apparent distress. HEAD: Normocephalic. EYES: Normal reaction of pupils, equal size. NOSE: Clear with pink turbinates. THROAT: No erythema or exudates. NECK: No masses, no JVD. CHEST: No chest wall deformity. LUNGS: Equal air entry with few scattered rhonchi in lung. CVS: S1 and S2 normal with no audible murmur, regular rhythm. ABDOMEN: No hepatosplenomegaly, normal bowel sounds, no guarding or rigidity. SPINE: No scoliosis or deformity SKIN: No rashes CENTRAL NERVOUS SYSTEM: No focal deficits, tone is normal in all 4 extremities. EXTREMITIES: There is trace peripheral edema. No clubbing, no cyanosis. Peripheral pulses are intact. Results - Laboratory Findings CBC and BMP: 07/15/21 10:30 07/15/21 10:30 PT/INR, D-dimer PT 12.6 sec (9.0-12.0) H 07/14/21 14:46 INR 1.2 (<1.2) H 07/14/21 14:46 Abnormal lab findings: Abnormal Labs 07/14/21 07/14/21 07/14/21 14:46 14:46 14:46 WBC 24.4 H Plt Count 145 L Neutrophils # 22.8 H Lymphocytes # 0.7 L PT 12.6 H INR 1.2 H Sodium 135 L Glucose 131 H POC Glucose (mg/dL) Plasma Lactic Acid Raji Calcium 8.3 L Magnesium 1.3 L Total Protein 6.0 L Albumin 3.2 L 07/14/21 07/14/21 07/14/21 14:46 17:26 17:28 WBC Plt Count Neutrophils # Lymphocytes # PT INR Sodium Glucose POC Glucose (mg/dL) 202 H Plasma Lactic Acid Raji 2.6 H* 2.5 H* Calcium Magnesium Total Protein Albumin 07/14/21 07/15/21 07/15/21 21:07 00:55 07:00 WBC Plt Count Neutrophils # Lymphocytes # PT INR Sodium Glucose POC Glucose (mg/dL) Plasma Lactic Acid Raji 3.3 H* 2.8 H* 2.2 H* Calcium Magnesium Total Protein Albumin 07/15/21 07/15/21 10:30 10:30 WBC 14.5 H Plt Count 121 L Neutrophils # 13.7 H Lymphocytes # 0.4 L PT INR Sodium 136 L Glucose 181 H POC Glucose (mg/dL) Plasma Lactic Acid Raji Calcium 7.7 L Magnesium Total Protein Albumin - Diagnostic Findings Chest x-ray: image reviewed CT scan - chest: image reviewed Assessment and Plan Assessment: Abdominal discomfort with nausea and found to have bacteremia secondary to Staphylococcus aureus Lactic acidosis secondary to above, improving Pulmonary sarcoidosis, with bronchoconstriction at the level of the right middle lobe bronchus with secondary atelectasis Recent bronchoscopy and biopsy on 06/27/2021 currently on prednisone 50 mg daily in the outpatient setting History of cardiac sarcoidosis and secondary cardiomyopathy, most recent echoc ardiogram reveals impaired left ventricular systolic function with ejection fraction 35-40% History of cardiac arrhythmias related to cardiac sarcoidosis and had undergone previous cardiac MRI and the patient has sinus syndrome and dual-chamber pacemaker/AICD placed History of cutaneous sarcoidosis Obstructive sleep apnea on CPAP therapy History of paroxysmal atrial fibrillation, anticoagulated with Eliquis History of multiple sclerosis Diabetes mellitus, type II Hypothyroidism Chronic diverticulosis History of [place]'s palsy Plan: The patient was seen and evaluated Chest x-ray, CAT scan and labs reviewed Improved aeration in the right middle lobe Discontinue Zosyn and azithromycin Continue vancomycin Final blood cultures pending Decrease prednisone to 20 mg daily Treated on the FiO2 as tolerated We will continue to follow and make further recommendations based on her clinical I have personally seen and examined the patient, performed the documentation and the assessment and plan as written. Number of minutes spent on the visit: 20. This is a joint evaluation that was done along with a nurse practitioner. The patient is very well-known to me. She is a case of poor sarcoidosis and she has been recently diagnosed again and she was having active sarcoid manifestation of lung disease and the patient's cholesterol right middle lobe. The patient was started on prednisone and the patient is currently on a 50 mg of prednisone a daily basis. Repeat CAT scan of the chest showed the especially the right lung with some residual inflammatory nodular changes in the right middle lobe. Meanwhile, the patient got admitted to the hospital with combination of symptoms which LENGTH about underlying staphylococcal septicemia. The patient has staph aureus in the blood and the patient is currently on IV vancomycin. Awaiting further cultures and sensitivities. Exact source of this staph in the blood is not clear. Could be a skin source. We'll continue the vancomycin. Stop the Zithromax. Stop the Zosyn. No evidence of any pneumonia and the patient is currently on 2 L of O2 by nasal cannula. Cardiac status is stable. We'll continue to follow. This evaluation was done and more than 30 minutes.
--- NOTE | 2021-07-15 18:46 | P.PN ---
Subjective Progress Note Date: 07/15/21 Synopsis Patient is a 45-year-old female with recently discovered sarcoidosis with p ulmonary infiltrates currently on high-dose steroids, cardiomyopathy with ejection fraction 35% status post AICD, A. fib, diabetes, and multiple other comorbid conditions who presented to the hospital after hours of just feeling over both frontal and having low blood pressures. Patient wa admitted here from 07/07 through 07/11 for pancreatitis. She was supposed to see Dr. Sow after discharge however was unable to make that appointment. She was also hospitalized here from 07/01 through 07/05 with sarcoidosis flare at that point in time she was sent home on prednisone 50 mg daily to take for 30 days. Patient presented to the ER with shortness of breath, sweating abdominal discomfort and significant anxiety. Patient blood pressure was on the low side in emergency department, chest x-ray showed possible left infiltrate, patient was admitted for pneumonia, Her blood cx +ve for MRSA Subjective Patient seen and evaluated at bedside, complaining about SOB and anxiety, No acute distress Objective General: non toxic, no acute distress, alert oriented to time place and person Head: atraumatic, normocephalic, symmetric Eyes: no lid lesion], anicteric sclera Mouth: no lip lesion, mucus membranes moist Cardiovascular: S1S2 reg rate and rhythm, no murmur, no gallop Lungs: Diminished breath sounds amauri Abdominal: soft, nontender to palpation, no guarding, no appreciable organomegaly Ext: no gross muscle atrophy, no edema extremities warm to suppose a positive Neuro: Alert oriented to time place and person, exam grossly nonfocal Psych: Mood and affect appropriate, patient not so certain Assessment and Plan MRSA bacteremia Repeat blood cultures Patient started on vancomycin Initially was on azithromycin and Zosyn that are now discontinued We'll check echocardiogram Infection disease consulted Pulmonary sarcoidosis Stable, continue home dose of prednisone Pulmonary medicine following Cardiac sarcoidosis Chronic CHF with EF 35-50% status post AICD placement Continue Coreg, continue Lasix Not on AZEB inhibitor Morbid obeisty with BM 43.6 and obstructive sleep apnea Recommend structured outpatient weight loss. Continue CPAP Anxiety and depression Continue Paxil Patient is requesting for Xanax as needed, discussed that in the long run she will benefit from psychiatric rest follow-up and careful titration of regimen for her anxiety and depression Recent pancreatitis Reported abdominal discomfort with fluid Check lipase, advance diet slowly as tolerated Atrial fibrillation Continue Coreg and Eliquis Insomnia Continue melatonin DM 2 with hyperglycemia Hold oral hypoglycemic Hemoglobin is 7.3 Continues on sliding scale Dyslipidemia Cont fenofibrate, zetia Hypothyroidism Cont levothyroxine CODE STATUS: Full code DVT prophylaxis: Lovenox Dispo Plan: Pending hospital course, likely back to home to be determined Objective - Vital Signs Vital signs: Vital Signs Temp 98.6 F 07/15/21 14:00 Pulse 96 07/15/21 14:00 Resp 18 07/15/21 14:00 BP 123/78 07/15/21 14:00 Pulse Ox 96 07/15/21 14:00 FiO2 Intake & Output 07/14/21 07/15/21 07/15/21 18:59 06:59 18:59 Intake Total 120 210 Balance 120 210 Weight 122.47 kg Intake: Oral 120 210 Other: Voiding Method Toilet # Voids 1 2 1 - Labs CBC & Chem 7: 07/15/21 10:30 07/15/21 10:30 Labs: Abnormal Lab Results - Last 24 Hours (Table) 07/14/21 07/15/21 07/15/21 Range/Units 21:07 00:55 07:00 WBC (3.8-10.6) k/uL Plt Count (150-450) k/uL Neutrophils # (1.3-7.7) k/uL Lymphocytes # (1.0-4.8) k/uL Sodium (137-145) mmol/L Glucose (74-99) mg/dL Plasma Lactic Acid Raji 3.3 H* 2.8 H* 2.2 H* (0.7-2.0) mmol/L Calcium (8.4-10.2) mg/dL 07/15/21 07/15/21 Range/Units 10:30 10:30 WBC 14.5 H (3.8-10.6) k/uL Plt Count 121 L (150-450) k/uL Neutrophils # 13.7 H (1.3-7.7) k/uL Lymphocytes # 0.4 L (1.0-4.8) k/uL Sodium 136 L (137-145) mmol/L Glucose 181 H (74-99) mg/dL Plasma Lactic Acid Raji (0.7-2.0) mmol/L Calcium 7.7 L (8.4-10.2) mg/dL Microbiology - Last 24 Hours (Table) 07/14/21 16:30 Blood Culture Gram Stain - Preliminary Blood Blood Culture - Preliminary Staphylococcus aureus 07/14/21 16:30 Blood Culture - Final Blood
[2021-07-15] MEDS: LATANOPROST 0.005% OPHTH DROPS 2.5 ML BTL RIGHT EYE SCH (20:02)
--- NOTE | 2021-07-15 22:55 | P.CONS ---
History of Present Illness - Reason for Consult Consult date: 07/15/21 Bacteremia Requesting physician: Mane Gautam - Chief Complaint Shortness of breath x few days - History of Present Illness Patient is a 45-year-old female with a past medical he significant for diabetes mellitus hypertension hyperlipidemia cardiomyopathy status post AICD placement acute pancreatitis anxiety depression patient recently underwent on bronchoscopy with a biopsy by Dr. Sow on 06/27/2021 and was noticed to have a nonnecrotizing granulomatous and chronic inflammation negative for malignancy those culture has been negative patient now presenting to the hospital for evaluation of abdominal pain that apparently was going on for few hours before presentation to the hospital patient also complaining of increasing shortness of breath, and a low pulse ox patient also complaining of cough which is moderate intensity and did have some hemoptysis denies any pleuritic chest pain the no nausea no vomiting or diarrhea, patient on presentation to the hospital was running a low-grade fever of 99.9 F patient did have a white count 24.4 with a left shift lactic acid was elevated creatinine was 0.71 liver enzymes are normal patient did have blood culture showing staph aureus presumptive MRSA infectious disease was consulted for further management of antibiotic therapy patient did have a chest x-ray right lower lobe pneumonia he did have a CT angiogram of the chest that was negative for PE however did shows bilateral pulmonary infiltrate mainly in the right middle lobe consistent with pneumonia Review of Systems Positive point has been mentioned in the HPI rest of the systems are negative Past Medical History Past Medical History: Atrial Fibrillation, Heart Failure, Diabetes Mellitus, GI Bleed, Hyperlipidemia, Hypertension, Myocardial Infarction ([place]), Musculoskeletal Disorder, Pneumonia, Skin Disorder, Sleep Apnea/CPAP/BIPAP, Thyroid Disorder Additional Past Medical History / Comment(s): "Have had 6 months of walking Pneumonia". Hx steroid induced gluacoma(resolved). Neurosarcoidosis, sarcoidosis which caused heart problems. Eczema. Hx [place] Palsy with right facial droop. Hx concussion at age 12, has some learning disablity-problems with spelling. MS. Graves Disease, " 7 auto immune diseases". DDD. CPAP use. "Weakness all over". Diarrhea and occasional blood in stool. "27 lesions on her brain". "INTERMITTENT GI BLEED" AND PROBLEMS SWALLOWING. Last Myocardial Infarction Date:: 11/15/20 History of Any Multi-Drug Resistant Organisms: None Reported Past Surgical History: AICD, Cholecystectomy, Heart Catheterization Additional Past Surgical History / Comment(s): VENOGRAM W/CINEFLUROSCOPY. Past Anesthesia/Blood Transfusion Reactions: No Reported Reaction Additional Past Anesthesia/Blood Transfusion Reaction / Comm: Claustrophobia. Type of Cardiac Device: Permanent Pacemaker, AICD Device Placement Date:: 03/01 Past Psychological History: ADD/ADHD, Anxiety, Depression Smoking Status: Never smoker Past Alcohol Use History: None Reported Past Drug Use History: None Reported - Past Family History Mother Family Medical History: AFIB, Deep Vein Thrombosis (DVT) Father Family Medical History: Osteoarthritis (OA), Thyroid Disorder Medications and Allergies Home Medications Medication Instructions Recorded Confirmed Type metFORMIN HCL [Glucophage] 1,000 mg PO BID-W/MEALS 11/10/17 07/30/21 History Ezetimibe [Zetia] 10 mg PO DAILY 10/06/18 07/30/21 History Apixaban [Eliquis] 5 mg PO BID #180 tab 02/15/19 07/30/21 Rx PARoxetine HCL 30 mg PO DAILY 06/23/19 07/30/21 History Artificial Tears-Hypromellose 1 drop BOTH EYES TID PRN 11/13/20 07/30/21 History [Artificial Tear Drops] Albuterol Inhaler [Ventolin Hfa 2 puff INHALATION RT-Q4H PRN 06/26/21 07/30/21 History Inhaler] Acetaminophen [Tylenol] 1,000 mg PO Q4-6H PRN 07/01/21 07/30/21 History Latanoprost/Pf [Latanoprost 0.005% 1 drop RIGHT EYE HS 07/01/21 07/30/21 History Eye Drop] Levothyroxine Sodium [Synthroid] 175 mcg PO DAILY 07/01/21 07/30/21 History glipiZIDE [Glucotrol] 5 mg PO AC-BRKFST #30 tab 07/05/21 07/30/21 Rx guaiFENesin-Coden 100-10MG/5ML 10 ml PO TID PRN #1000 ml 07/05/21 07/30/21 Rx [Robitussin AC] HYDROcodone/APAP 5-325MG [[place] 1 tab PO Q6HR PRN 3 Days #12 tab 07/11/21 07/30/21 Rx 5-325] Fenofibrate [Lofibra] 160 mg PO DAILY 07/14/21 07/30/21 History Pantoprazole [Protonix] 40 mg PO AC-BID #60 tab 07/25/21 07/30/21 Rx Vancomycin 2,000 mg IVPB Q12HR each 07/25/21 07/30/21 Rx predniSONE 10 mg PO DAILY 07/30/21 07/30/21 History Furosemide [Lasix] 40 mg PO BID@0900,1600 #180 tab 08/01/21 Rx Metoprolol Succinate (ER) [Toprol 25 mg PO DAILY #90 tab 08/01/21 Rx XL] Allergies Allergy/AdvReac Type Severity Reaction Status Date / Time Jhysgrp-TAC-IcK Reductase AdvReac FACIAL Verified 07/30/21 19:23 Inhibitor NUMBNESS [Slsqkzv-Tvr-Srg Reductase Inhibitor] SEAFOOD Allergy Rash/Hives Uncoded 07/30/21 17:18 Physical Exam Vitals: Vital Signs Temp Pulse Pulse Resp BP BP BP 07/15/21 14:00 98.6 F 96 18 123/78 07/15/21 08:00 98.6 F 50 L 18 102/64 07/15/21 01:54 98.5 F 70 19 135/84 07/14/21 19:13 98.3 F 70 17 100/63 07/14/21 17:49 98.7 F 73 16 99/61 07/14/21 17:11 99.1 F 87 20 118/70 Pulse Ox 07/15/21 14:00 96 07/15/21 08:00 92 L 07/15/21 01:54 97 07/14/21 19:13 96 07/14/21 17:49 97 07/14/21 17:11 97 Intake and Output 07/15/21 07/15/21 07/15/21 06:59 14:59 22:59 Intake Total 90 Balance 90 Intake: Oral 90 Other: # Voids 2 1 GENERAL DESCRIPTION: Middle-aged female lying in bed, no distress. No tachypnea or accessory muscle of respiration use. HEENT: Shows Pallor , no scleral icterus. Oral mucous membrane is dry. No pharyngeal erythema or thrush NECK: Trachea central, no thyromegaly. LUNGS: Unlabored breathing. Coarse breath sounds bilaterally No wheeze or crackle. HEART: S1, S2, regular rate and rhythm. No loud murmur ABDOMEN: Soft, no tenderness , guarding or rigidity, no organomegaly EXTREMITIES: No edema of feet. SKIN: No rash, no masses palpable. NEUROLOGICAL: The patient is awake, alert, oriented x3, mood and affect normal. Results CBC & Chem 7: 07/24/21 07:35 07/26/21 09:47 Labs: Abnormal Lab Results - Last 24 Hours (Table) 07/14/21 07/14/21 07/14/21 Range/Units 17:26 17:28 21:07 WBC (3.8-10.6) k/uL Plt Count (150-450) k/uL Neutrophils # (1.3-7.7) k/uL Lymphocytes # (1.0-4.8) k/uL Sodium (137-145) mmol/L Glucose (74-99) mg/dL POC Glucose (mg/dL) 202 H (75-99) mg/dL Plasma Lactic Acid Raji 2.5 H* 3.3 H* (0.7-2.0) mmol/L Calcium (8.4-10.2) mg/dL 07/15/21 07/15/21 07/15/21 Range/Units 00:55 07:00 10:30 WBC 14.5 H (3.8-10.6) k/uL Plt Count 121 L (150-450) k/uL Neutrophils # 13.7 H (1.3-7.7) k/uL Lymphocytes # 0.4 L (1.0-4.8) k/uL Sodium (137-145) mmol/L Glucose (74-99) mg/dL POC Glucose (mg/dL) (75-99) mg/dL Plasma Lactic Acid Raji 2.8 H* 2.2 H* (0.7-2.0) mmol/L Calcium (8.4-10.2) mg/dL 07/15/21 Range/Units 10:30 WBC (3.8-10.6) k/uL Plt Count (150-450) k/uL Neutrophils # (1.3-7.7) k/uL Lymphocytes # (1.0-4.8) k/uL Sodium 136 L (137-145) mmol/L Glucose 181 H (74-99) mg/dL POC Glucose (mg/dL) (75-99) mg/dL Plasma Lactic Acid Raji (0.7-2.0) mmol/L Calcium 7.7 L (8.4-10.2) mg/dL Microbiology - Last 24 Hours (Table) 07/14/21 16:30 Blood Culture Gram Stain - Preliminary Blood Blood Culture - Preliminary Staphylococcus aureus 07/14/21 16:30 Blood Culture - Final Blood Assessment and Plan (1) Pneumonia Status: Acute Code(s): J18.9 - PNEUMONIA, UNSPECIFIED ORGANISM SNOMED Code(s): 321496304 Plan: 1patient with MRSA bacteremia more likely secondary to the pneumonia in this patient presented to hospital with increasing shortness of breath hypoxemia with evidence of right middle lobe pneumonia, currently with no other obvious focus for this bacteremia in this patient with no skin lesion or joint swelling and abdominal was soft on clinical examination. 2blood cultures will be repeated document clearance of bacteremia. 3vancomycin pharmacy to dose target trough of 15 while watching kidney function and vancomycin trough closely. We will follow on clinical condition and cultures to further adjust medication if needed Thank you for this consultation will follow this patient along with you Time with Patient: Greater than 30
[2021-07-16] MEDS: VANCOMYCIN 2,000 MG in SODIUM CHLORIDE 0.9% 500 ML 500 ML IVPB SCH ×3 (00:52→21:24)
--- NOTE | 2021-07-16 01:30 | XR ---
EXAMINATION TYPE: XR chest 2V DATE OF EXAM: 07/15/2021 COMPARISON: X-ray dated 07/14/2021 HISTORY: Pneumonia TECHNIQUE: Frontal and lateral views of the chest are obtained. FINDINGS: Persistent increased density of the lower lung zones, more on the right side, underlying pulmonary in filtration/pneumonia cannot be excluded. No progressive pulmonary consolidation. No sizable pleural effusion or pneumothorax. Persistent increased cardiac transverse diameter. Unchan ged left chest wall triple lead pacemaker. Degenerative changes of the thoracic spine. IMPRESSION: No significant interval changes as described above.
[2021-07-16] MEDS: CALCIUM CARBONATE 500 MG CHEWABLE PO PRN ×2 (02:30→14:02)
[2021-07-16] MEDS: ACETAMINOPHEN TAB 325 MG TAB PO PRN ×2 (03:06→21:23)
[2021-07-16] MEDS: ALBUTEROL HFA INHALER INHALATION PRN ×6 (03:40→23:25)
[2021-07-16 07:35] LABS: Glucose,Whole Blood 135 mg/dL (75-99)
[2021-07-16] MEDS: APIXABAN 5 MG TAB PO SCH ×2 (07:43→21:24)
[2021-07-16] MEDS: carvediloL 3.125 MG TAB PO SCH ×2 (07:43→21:24)
[2021-07-16] MEDS: FUROSEMIDE 40 MG TAB PO SCH (07:43)
[2021-07-16] MEDS: LEVOTHYROXINE 88 MCG TAB PO SCH (07:43)
[2021-07-16] MEDS: EZETIMIBE 10 MG TAB PO SCH (07:43)
[2021-07-16] MEDS: PARoxetine 10 MG TAB PO SCH (07:44)
[2021-07-16] MEDS: predniSONE 20 MG TAB PO SCH (07:44)
[2021-07-16] MEDS: PANTOPRAZOLE 40 MG TABLET PO SCH ×2 (07:44→17:50)
[2021-07-16] MEDS: HYDROcodone/APAP 5-325MG 1 EACH TAB PO PRN (07:45)
[2021-07-16 08:46] LABS: African American GFR (CKD) >90 (>60 ml/min/1.73 sqM); Non-African American GFR(CKD) >90 (>60 ml/min/1.73 sqM)
[2021-07-16 09:02] LABS: C Reactive Protein 17.6 mg/dL (<1.0)
[2021-07-16 12:29] LABS: Glucose,Whole Blood 291 mg/dL (75-99)
--- NOTE | 2021-07-16 13:56 | P.PN ---
Subjective Progress Note Date: 07/16/21 Principal diagnosis: Bacteremia Physical very pleasant 45-year-old female patient with a known history of previous admission for acute pancreatitis, atrial fibrillation, diabetes m ellitus, GI bleeding, hypertension, hyperlipidemia, cardiomyopathy status post AICD placement, anxiety/depression. 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 She had undergone bronchoscopy with biopsies on 06/27/[address] Sow. She was found to have confluent nonnecrotizing granulomas and chronic inflammation. Negative for malignancy. The right middle lobe collapse. She is on an antibiotic and prednisone 50 mg daily. She presented to the emergency room again yesterday with complaints of abdominal discomfort that felt similar to her previous pancreatitis. She did develop anxiety with shortness of breath. She had another CT angiogram that revealed no evidence of pulmonary embolism. There is bilateral pulmonary atelectasis mainly in the right middle lobe consistent with postobstructive atelectasis however it is improved compared to previous. White count 14.5. Hemoglobin 13.2. Platelets 121. Sodium 136. Potassium 4.6. Bicarb 20. BUN 16. Creatinine 0.7. Initial lactic acid 2.8 currently 1.7. Initial blood cultures revealing Staphylococcus aureus. The patient was stating she had some edema and drainage from her right brachial IV site from her previous admission. She was just discharged home on 07/11/2021. She been initiated on vancomycin and azithromycin along with Zosyn. She received 500 mL of fluid resuscitation. She is seen today the patient on the regular medical. She is currently awake and alert in no acute distress. She denies any worsening shortness of breath. Occasional cough with some blood-tinged sputum. She is maintaining O2 saturation in the 90s on 2 L/m per nasal cannula. She's afebrile. Her lipase was 148 yesterday. Down to 132 today. ProBNP 5450. Echocardiogram from previous admission revealed moderately impaired left ventricular systolic function with ejection fraction of 35-40%. She is continued on oral diuretics. She is anticoagulated with Eliquis. On 07/16/2021 patient seen in follow-up on medical surgical floor. She is resting comfortably in bed, denies any acute distress, on 2 L of oxygen patient satting 93-94%. Vital signs have been stable, occasional cough, at times with production of small amount of blood-tinged phlegm. Patient remains on Eliquis. CT angiogram of the chest showed no evidence of pulmonary embolism. And bilateral pulmonary atelectasis, and right middle lobe postobstructive atelectasis, with improvement in aeration compared the last admission. No abdominal pain, no nausea or vomiting, patient remains on small dose of prednisone 20 mg daily, patient was found to be bacteremic, so far blood cultures from 07/14/2021 and 07/15/2021 were positive, with preliminary results suggesting presumptive MRSA, sputum culture is pending. Patient is on vancomycin for antibiotic coverage. Patient requested to be put back on BiPAP support at bedtime because she feels short of breath at nighttime. Patient continues on home dose oral Lasix. She feels like her abdomen is bloated, but denies any abdominal pain. Labs have been reviewed, white blood cell count is improved, and is down to 14.5, electrolytes and renal profile are unremarkable. Pro-calcitonin level of increased and is up to 0.64 on today's labs. Objective - Vital Signs Vital signs: Vital Signs Temp 97.8 F 07/16/21 08:00 Pulse 68 07/16/21 08:00 Resp 20 07/16/21 08:00 BP 126/87 07/16/21 08:00 Pulse Ox 93 L 07/16/21 08:00 FiO2 Intake & Output 07/15/21 07/16/21 07/16/21 18:59 06:59 18:59 Intake Total 210 120 240 Output Total 0 Balance 210 120 240 Intake: Oral 210 120 240 Output: Emesis 0 Other: # Voids 1 - Exam GENERAL EXAM: Alert, very pleasant, 45-year-old white female on 2 L of oxygen a pulse ox of 93% comfortable in no apparent distress. HEAD: Normocephalic/atraumatic. EYES: Normal reaction of pupils, equal size. Conjunctiva pink, sclera white. NOSE: Clear with pink turbinates. THROAT: No erythema or exudates. NECK: No masses, no JVD, no thyroid enlargement, no adenopathy. CHEST: No chest wall deformity. Symmetrical expansion. LUNGS: Equal air entry with no crackles, wheeze, rhonchi or dullness. CVS: Regular rate and rhythm, normal S1 and S2, no gallops, no murmurs, no rubs ABDOMEN: Soft, distended but nontender, but soft No hepatosplenomegaly, normal bowel sounds, no guarding or rigidity. EXTREMITIES: No clubbing, no edema, no cyanosis, 2+ pulses and upper and lower extremities. MUSCULOSKELETAL: Muscle strength and tone normal. SPINE: No scoliosis or deformity SKIN: No rashes CENTRAL NERVOUS SYSTEM: Alert and oriented -3. No focal deficits, tone is normal in all 4 extremities. PSYCHIATRIC: Alert and oriented -3. Appropriate affect. Intact judgment and insight. - Labs CBC & Chem 7: 07/17/21 07:19 07/17/21 07:19 Labs: Abnormal Lab Results - Last 24 Hours (Table) 07/15/21 07/16/21 07/16/21 Range/Units 14:43 07:34 08:03 ESR (0-20) mm/Hr Creatinine (0.52-1.04) mg/dL POC Glucose (mg/dL) 135 H (75-99) mg/dL C-Reactive Protein (<1.0) mg/dL Procalcitonin 0.57 H 0.64 H (0.02-0.09) ng/mL 07/16/21 07/16/21 07/16/21 Range/Units 08:03 08:03 12:27 ESR 64 H (0-20) mm/Hr Creatinine 0.47 L (0.52-1.04) mg/dL POC Glucose (mg/dL) 291 H (75-99) mg/dL C-Reactive Protein 17.6 H (<1.0) mg/dL Procalcitonin (0.02-0.09) ng/mL Microbiology - Last 24 Hours (Table) 07/15/21 14:35 Blood Culture Gram Stain - Preliminary Blood 07/15/21 14:35 Blood Culture - Final Blood 07/14/21 16:30 Blood Culture Gram Stain - Preliminary Blood Blood Culture - Preliminary Presumptive MRSA 07/15/21 20:08 Sputum Culture - Preliminary Sputum Assessment and Plan Plan: #1. Bacteremia, related to presumptive MRSA #2. Lactic acidosis, improved #3. Recent hospitalization for acute pancreatitis that was thought to be drug induced, improved #4. 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 Recent hospitalization for acute pneumonia, difficulty breathing, right lung collapse, and acute hypoxic respiratory failure, status post bronchoscopy #6. Chronic A. fib on an requests #7. Diabetes mellitus type 2 #8. Hypertension #9. Hyperlipidemia #10. Previous history of myocardial infarction #11. Sleep apnea #12. 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 Multiple sclerosis #15. Permanent pacemaker implantation and AICD placement #16. ADD/ADHD #17. Anxiety and depression #18. History of cardiac sarcoidosis and secondary cardiomyopathy, most recent echocardiogram reveals impaired left ventricular systolic function with ejection fraction 35-40% #19. History of cardiac arrhythmias related to cardiac sarcoidosis and had undergone previous cardiac MRI and the patient has sinus syndrome and dual- chamber pacemaker/AICD placed Plan: Continue prednisone at 20 mg daily Follow-up blood cultures remain positive Await final blood cultures, patient remains on vancomycin Follow-up CAT scan of the chest shows improved aeration BiPAP support at night with pressures as temporal 5 and FiO2 to keep O2 sats 90% Continue maintenance dose Lasix We'll continue to follow I have personally seen and examined the patient, performed the documentation and the assessment and plan as written. Number of minutes spent on the visit: [10] I have personally seen and examined the patient and reviewed the documentation. I performed a joint evaluation with the nurse practitioner in this evaluation was done more than 20 minutes. I fully agree with the documentation above and the plan of care. I would agree on the above-mentioned plan. There is a concern of ongoing bacteremia which could indicate an underlying endovascular infection. Possibility of endocarditis cannot be completely ruled out. We'll follow the blood cultures. Continue vancomycin for now. At the same time, the prednisone dose will be dropped down to 20 mg by mouth daily. Start the patient on BiPAP overnight at a pressure of 10/5 cm of water. Follow-up blood cultures. We'll continue to follow. Long-term prognosis poor baseline above-mentioned comorbidities. Time with Patient: Less than 30
--- NOTE | 2021-07-16 14:28 | P.PN ---
Subjective Progress Note Date: 07/16/21 Principal diagnosis: patient states that she is weaker today no vomiting Patient is a 45-year-old female with recently discovered sarcoidosis with pulmonary infiltrates currently on high-dose steroids, cardiomyopathy with ejection fraction 35% status post AICD, A. fib, diabetes, and multiple other comorbid conditions who presented to the hospital after hours of just feeling over both frontal and having low blood pressures. Patient wa admitted here from 07/07 through 07/11 for pancreatitis. She was supposed to see Dr. Sow after discharge however was unable to make that appointment. She was also hospitalized here from 07/01 through 07/05 with sarcoidosis flare at that point in time she was sent home on prednisone 50 mg daily to take for 30 days. Patient presented to the ER with shortness of breath, sweating abdominal discomfort and significant anxiety. Patient blood pressure was on the low side in emergency department, chest x-ray showed possible left infiltrate, patient was admitted for pneumonia, Her blood cx +ve for MRSA Subjective Patient seen and evaluated at bedside, complaining about SOB and anxiety, No acute distress Objective General: non toxic, no acute distress, alert oriented to time place and person Head: atraumatic, normocephalic, symmetric Eyes: no lid lesion], anicteric sclera Mouth: no lip lesion, mucus membranes moist Cardiovascular: S1S2 reg rate and rhythm, no murmur, no gallop Lungs: Diminished breath sounds amauri Abdominal: soft, nontender to palpation, no guarding, no appreciable organomegaly Ext: no gross muscle atrophy, no edema extremities warm to suppose a positive Neuro: Alert oriented to time place and person, exam grossly nonfocal Psych: Mood and affect appropriate, patient not so certain Assessment and Plan MRSA bacteremia overall continue IV antibiotics as per infectious disease Repeat blood cultures Patient started on vancomycin Initially was on azithromycin and Zosyn that are now discontinued We'll check echocardiogram Infection disease consulted Pulmonary sarcoidosis Stable, continue home dose of prednisone Pulmonary medicine following Cardiac sarcoidosis Chronic CHF with EF 35-50% status post AICD placement Continue Coreg, continue Lasix Not on AZEB inhibitor Morbid obeisty with BM 43.6 and obstructive sleep apnea Recommend structured outpatient weight loss. Continue CPAP Anxiety and depression Continue Paxil Patient is requesting for Xanax as needed, discussed that in the long run she will benefit from psychiatric rest follow-up and careful titration of regimen for her anxiety and depression Recent pancreatitis Reported abdominal discomfort with fluid Check lipase, advance diet slowly as tolerated Atrial fibrillation Continue Coreg and Eliquis Insomnia Continue melatonin DM 2 with hyperglycemia Hold oral hypoglycemic Hemoglobin is 7.3 Continues on sliding scale Dyslipidemia Cont fenofibrate, zetia Hypothyroidism Cont levothyroxine CODE STATUS: Full code DVT prophylaxis: Lovenox Dispo Plan: Pending hospital course, likely back to home to be determined Objective - Vital Signs Vital signs: Vital Signs Temp 97.8 F 07/16/21 08:00 Pulse 68 07/16/21 08:00 Resp 20 07/16/21 08:00 BP 126/87 07/16/21 08:00 Pulse Ox 93 L 07/16/21 08:00 FiO2 Intake & Output 07/15/21 07/16/21 07/16/21 18:59 06:59 18:59 Intake Total 210 120 240 Output Total 0 Balance 210 120 240 Intake: Oral 210 120 240 Output: Emesis 0 Other: # Voids 1 - Labs CBC & Chem 7: 07/15/21 10:30 07/16/21 08:03 Labs: Abnormal Lab Results - Last 24 Hours (Table) 07/15/21 07/16/21 07/16/21 Range/Units 14:43 07:34 08:03 ESR (0-20) mm/Hr Creatinine (0.52-1.04) mg/dL POC Glucose (mg/dL) 135 H (75-99) mg/dL C-Reactive Protein (<1.0) mg/dL Procalcitonin 0.57 H 0.64 H (0.02-0.09) ng/mL 07/16/21 07/16/21 07/16/21 Range/Units 08:03 08:03 12:27 ESR 64 H (0-20) mm/Hr Creatinine 0.47 L (0.52-1.04) mg/dL POC Glucose (mg/dL) 291 H (75-99) mg/dL C-Reactive Protein 17.6 H (<1.0) mg/dL Procalcitonin (0.02-0.09) ng/mL Microbiology - Last 24 Hours (Table) 07/15/21 14:35 Blood Culture Gram Stain - Preliminary Blood 07/15/21 14:35 Blood Culture - Final Blood 07/14/21 16:30 Blood Culture Gram Stain - Preliminary Blood Blood Culture - Preliminary Presumptive MRSA 07/15/21 20:08 Sputum Culture - Preliminary Sputum
[2021-07-16 15:03] LABS: Glucose,Whole Blood 303 mg/dL (75-99)
[2021-07-16] MEDS: INSULIN ASPART (NovoLOG) 100 UNIT/ML VIAL SQ SCH ×3 (15:15→21:25)
[2021-07-16 16:55] LABS: Glucose,Whole Blood 268 mg/dL (75-99)
[2021-07-16 20:46] LABS: Glucose,Whole Blood 140 mg/dL (75-99)
[2021-07-16] MEDS: LATANOPROST 0.005% OPHTH DROPS 2.5 ML BTL RIGHT EYE SCH (21:30)
[2021-07-17] MEDS: ALBUTEROL HFA INHALER INHALATION PRN (03:44)
[2021-07-17] MEDS: VANCOMYCIN 2,000 MG in SODIUM CHLORIDE 0.9% 500 ML 500 ML IVPB SCH ×2 (06:04→14:15)
[2021-07-17] MEDS: ACETAMINOPHEN TAB 325 MG TAB PO PRN (07:00)
[2021-07-17 07:22] LABS: Glucose,Whole Blood 103 mg/dL (75-99)
[2021-07-17 08:08] LABS: Basophils % (A) 0 %; Eosinophils # (A) 0.1 k/uL (0-0.7); Eosinophils % (A) 1 %; HCT 39.1 % (34.0-46.0); HGB 11.9 gm/dL (11.4-16.0); Lymphocytes # (A) 0.8 k/uL (1.0-4.8); Lymphocytes % (A) 8 %; MCH 28.1 pg (25.0-35.0); MCHC 30.4 g/dL (31.0-37.0); MCV 92.2 fL (80.0-100.0); Mean Platelet Volume 9.5; Monocytes # (A) 0.4 k/uL (0-1.0); Monocytes % (A) 3 %; Neutrophils # (A) 9.5 k/uL (1.3-7.7); Neutrophils % (A) 87 %; Platelet Count 108 k/uL (150-450); RBC 4.24 m/uL (3.80-5.40); RDW 14.3 % (11.5-15.5); WBC 10.9 k/uL (3.8-10.6)
[2021-07-17 08:35] LABS: ALT 46 U/L (4-34); AST 35 U/L (14-36); African American GFR (CKD) >90 (>60 ml/min/1.73 sqM); Albumin 3.1 g/dL (3.5-5.0); Albumin/Globulin Ratio 1.1; Alkaline Phosphatase 94 U/L (38-126); Anion Gap 5 mmol/L; Blood Urea Nitrogen 12 mg/dL (7-17); Calcium 8.2 mg/dL (8.4-10.2); Carbon Dioxide 32 mmol/L (22-30); Chloride 101 mmol/L (98-107); Globulin 2.7 g/dL; Glucose 114 mg/dL (74-99); Non-African American GFR(CKD) >90 (>60 ml/min/1.73 sqM); Potassium 3.8 mmol/L (3.5-5.1); Sodium 138 mmol/L (137-145); Total Bilirubin 1.1 mg/dL (0.2-1.3); Total Protein 5.8 g/dL (6.3-8.2)
[2021-07-17] MEDS: INSULIN ASPART (NovoLOG) 100 UNIT/ML VIAL SQ SCH ×4 (08:37→21:16)
[2021-07-17] MEDS: APIXABAN 5 MG TAB PO SCH ×2 (08:49→21:16)
[2021-07-17] MEDS: PARoxetine 10 MG TAB PO SCH (08:49)
[2021-07-17] MEDS: LEVOTHYROXINE 88 MCG TAB PO SCH (08:49)
[2021-07-17] MEDS: EZETIMIBE 10 MG TAB PO SCH (08:49)
[2021-07-17] MEDS: carvediloL 3.125 MG TAB PO SCH ×2 (08:49→21:16)
[2021-07-17] MEDS: PANTOPRAZOLE 40 MG TABLET PO SCH ×2 (08:49→18:16)
[2021-07-17] MEDS: FUROSEMIDE 40 MG TAB PO SCH (08:49)
[2021-07-17] MEDS: predniSONE 20 MG TAB PO SCH (08:50)
[2021-07-17] MEDS ORDERED: VANCOMYCIN TROUGH DUE 1 EACH MISC MISCELLANE ONE (12:00)
[2021-07-17 12:13] LABS: Glucose,Whole Blood 210 mg/dL (75-99)
[2021-07-17] MEDS: VANCOMYCIN 1,750 MG in SODIUM CHLORIDE 0.9% 500 ML 500 ML IVPB SCH ×2 (13:43→21:18)
--- NOTE | 2021-07-17 14:07 | P.PN ---
Subjective Progress Note Date: 07/17/21 patient states that she is weaker today no vomiting Patient is a 45-year-old female with recently discovered sarcoidosis with pulmonary infiltrates currently on high-dose steroids, cardiomyopathy with ejection fraction 35% status post AICD, A. fib, diabetes, and multiple other comorbid conditions who presented to the hospital after hours of just feeling over both frontal and having low blood pressures. Patient wa admitted here from 07/07 through 07/11 for pancreatitis. She was supposed to see Dr. Sow after discharge however was unable to make that appointment. She was also hospitaliz ed here from 07/01 through 07/05 with sarcoidosis flare at that point in time she was sent home on prednisone 50 mg daily to take for 30 days. Patient presented to the ER with shortness of breath, sweating abdominal discomfort and significant anxiety. Patient blood pressure was on the low side in emergency department, chest x-ray showed possible left infiltrate, patient was admitted for pneumonia, Her blood cx +ve for MRSA Subjective Patient seen and evaluated at bedside, complaining about SOB and anxiety, No acute distress Objective General: non toxic, no acute distress, alert oriented to time place and person Head: atraumatic, normocephalic, symmetric Eyes: no lid lesion], anicteric sclera Mouth: no lip lesion, mucus membranes moist Cardiovascular: S1S2 reg rate and rhythm, no murmur, no gallop Lungs: Diminished breath sounds amauri Abdominal: soft, nontender to palpation, no guarding, no appreciable organomegaly Ext: no gross muscle atrophy, no edema extremities warm to suppose a positive Neuro: Alert oriented to time place and person, exam grossly nonfocal Psych: Mood and affect appropriate, patient not so certain Constitutional: No acute distress, conversant, pleasant Eyes: Anicteric sclerae, moist conjunctiva, no lid-lag PERRLA ENMT: NC/AT Oropharynx clear, no erythema, exudates Neck: Supple, FROM, no masses, or JVD No carotid bruits No thyromegaly Lungs: Clear to auscultation Clear to percussion Normal respiratory effort, no accessory muscle use Cardiovascular: Heart regular in rate and rhythm, No murmurs, gallops, or rubs No peripheral edema Abdominal: Soft Nontender, no guarding, rebound or rigidity Abdomen moving with respiration Normoactive bowel sounds No hepatomegaly, No splenomegaly No palpable mass No abdominal wall hernia noted Skin: Normal temperature, tone, texture, turgor No induration No subcutaneous nodules No rash, lesions No ulcers Extremities: No digital cyanosis No clubbing Pedal pulses intact and symmetrical Radial pulses intact and symmetrical Normal gait and station No calf tenderness Psychiatric:Alert and oriented to person, place and time Appropriate affect Intact judgement Neuro: Muscles Strength 5/5 in all 4 extremities Sensation to light touch grossly present throughout Cranial nerves II-XII grossly intact No focal sensory deficits Assessment and Plan Slowly improvement will continue management as per pulmonology and infectious disease MRSA bacteremia overall continue IV antibiotics as per infectious disease Repeat blood cultures Patient started on vancomycin Initially was on azithromycin and Zosyn that are now discontinued We'll check echocardiogram Infection disease consulted Pulmonary sarcoidosis Stable, continue home dose of prednisone Pulmonary medicine following Cardiac sarcoidosis Chronic CHF with EF 35-50% status post AICD placement Continue Coreg, continue Lasix Not on AZEB inhibitor Morbid obeisty with BM 43.6 and obstructive sleep apnea Recommend structured outpatient weight loss. Continue CPAP Anxiety and depression Continue Paxil Patient is requesting for Xanax as needed, discussed that in the long run she will benefit from psychiatric rest follow-up and careful titration of regimen for her anxiety and depression Recent pancreatitis Reported abdominal discomfort with fluid Check lipase, advance diet slowly as tolerated Atrial fibrillation Continue Coreg and Eliquis Insomnia Continue melatonin DM 2 with hyperglycemia Hold oral hypoglycemic Hemoglobin is 7.3 Continues on sliding scale Dyslipidemia Cont fenofibrate, zetia Hypothyroidism Cont levothyroxine CODE STATUS: Full code DVT prophylaxis: Lovenox Dispo Plan: Pending hospital course, likely back to home to be determined Objective - Vital Signs Vital signs: Vital Signs Temp 97.1 F L 07/17/21 08:00 Pulse 70 07/17/21 08:00 Resp 16 07/17/21 08:00 BP 156/91 07/17/21 08:00 Pulse Ox 97 07/17/21 08:00 FiO2 30 07/17/21 07:15 Intake & Output 07/16/21 07/17/21 07/17/21 18:59 06:59 18:59 Intake Total 838 Output Total 0 Balance 838 0 Intake: Oral 838 Output: Emesis 0 Other: Voiding Method Toilet # Voids 2 - Labs CBC & Chem 7: 07/17/21 07:19 07/17/21 07:19 Labs: Abnormal Lab Results - Last 24 Hours (Table) 07/16/21 07/16/21 07/16/21 Range/Units 15:01 16:53 20:44 WBC (3.8-10.6) k/uL MCHC (31.0-37.0) g/dL Plt Count (150-450) k/uL Neutrophils # (1.3-7.7) k/uL Lymphocytes # (1.0-4.8) k/uL Carbon Dioxide (22-30) mmol/L Glucose (74-99) mg/dL POC Glucose (mg/dL) 303 H 268 H 140 H (75-99) mg/dL Calcium (8.4-10.2) mg/dL ALT (4-34) U/L Total Protein (6.3-8.2) g/dL Albumin (3.5-5.0) g/dL 07/17/21 07/17/21 07/17/21 Range/Units 07:19 07:19 07:20 WBC 10.9 H (3.8-10.6) k/uL MCHC 30.4 L (31.0-37.0) g/dL Plt Count 108 L (150-450) k/uL Neutrophils # 9.5 H (1.3-7.7) k/uL Lymphocytes # 0.8 L (1.0-4.8) k/uL Carbon Dioxide 32 H (22-30) mmol/L Glucose 114 H (74-99) mg/dL POC Glucose (mg/dL) 103 H (75-99) mg/dL Calcium 8.2 L (8.4-10.2) mg/dL ALT 46 H (4-34) U/L Total Protein 5.8 L (6.3-8.2) g/dL Albumin 3.1 L (3.5-5.0) g/dL 07/17/21 Range/Units 12:12 WBC (3.8-10.6) k/uL MCHC (31.0-37.0) g/dL Plt Count (150-450) k/uL Neutrophils # (1.3-7.7) k/uL Lymphocytes # (1.0-4.8) k/uL Carbon Dioxide (22-30) mmol/L Glucose (74-99) mg/dL POC Glucose (mg/dL) 210 H (75-99) mg/dL Calcium (8.4-10.2) mg/dL ALT (4-34) U/L Total Protein (6.3-8.2) g/dL Albumin (3.5-5.0) g/dL Microbiology - Last 24 Hours (Table) 07/14/21 16:30 Blood Culture Gram Stain - Final Blood Blood Culture - Final Methicillin resist S. aureus 07/15/21 20:08 Gram Stain - Preliminary Sputum Sputum Culture - Preliminary 07/10/21 08:03 Blood Culture Gram Stain - Preliminary Blood 07/16/21 08:03 Blood Culture - Final Blood 07/15/21 14:35 Blood Culture Gram Stain - Preliminary Blood 07/15/21 14:35 Blood Culture - Final Blood
--- NOTE | 2021-07-17 14:58 | P.PN ---
Subjective Progress Note Date: 07/17/21 Principal diagnosis: Bacteremia Physical very pleasant 45-year-old female patient with a known history of previous admission for acute pancreatitis, atrial fibrillation, diabetes m ellitus, GI bleeding, hypertension, hyperlipidemia, cardiomyopathy status post AICD placement, anxiety/depression. 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 She had undergone bronchoscopy with biopsies on 06/27/[address] Sow. She was found to have confluent nonnecrotizing granulomas and chronic inflammation. Negative for malignancy. The right middle lobe collapse. She is on an antibiotic and prednisone 50 mg daily. She presented to the emergency room again yesterday with complaints of abdominal discomfort that felt similar to her previous pancreatitis. She did develop anxiety with shortness of breath. She had another CT angiogram that revealed no evidence of pulmonary embolism. There is bilateral pulmonary atelectasis mainly in the right middle lobe consistent with postobstructive atelectasis however it is improved compared to previous. White count 14.5. Hemoglobin 13.2. Platelets 121. Sodium 136. Potassium 4.6. Bicarb 20. BUN 16. Creatinine 0.7. Initial lactic acid 2.8 currently 1.7. Initial blood cultures revealing Staphylococcus aureus. The patient was stating she had some edema and drainage from her right brachial IV site from her previous admission. She was just discharged home on 07/11/2021. She been initiated on vancomycin and azithromycin along with Zosyn. She received 500 mL of fluid resuscitation. She is seen today the patient on the regular medical. She is currently awake and alert in no acute distress. She denies any worsening shortness of breath. Occasional cough with some blood-tinged sputum. She is maintaining O2 saturation in the 90s on 2 L/m per nasal cannula. She's afebrile. Her lipase was 148 yesterday. Down to 132 today. ProBNP 5450. Echocardiogram from previous admission revealed moderately impaired left ventricular systolic function with ejection fraction of 35-40%. She is continued on oral diuretics. She is anticoagulated with Eliquis. On 07/16/2021 patient seen in follow-up on medical surgical floor. She is resting comfortably in bed, denies any acute distress, on 2 L of oxygen patient satting 93-94%. Vital signs have been stable, occasional cough, at times with production of small amount of blood-tinged phlegm. Patient remains on Eliquis. CT angiogram of the chest showed no evidence of pulmonary embolism. And bilateral pulmonary atelectasis, and right middle lobe postobstructive atelectasis, with improvement in aeration compared the last admission. No abdominal pain, no nausea or vomiting, patient remains on small dose of prednisone 20 mg daily, patient was found to be bacteremic, so far blood cultures from 07/14/2021 and 07/15/2021 were positive, with preliminary results suggesting presumptive MRSA, sputum culture is pending. Patient is on vancomycin for antibiotic coverage. Patient requested to be put back on BiPAP support at bedtime because she feels short of breath at nighttime. Patient continues on home dose oral Lasix. She feels like her abdomen is bloated, but denies any abdominal pain. Labs have been reviewed, white blood cell count is improved, and is down to 14.5, electrolytes and renal profile are unremarkable. Pro-calcitonin level of increased and is up to 0.64 on today's labs. On 07/17/2021 patient seen in follow-up on medical surgical floor. Follow blood culture from 07/16/2021 is persistently positive for gram-positive cocci in clusters, and blood culture from 07/14/2021 resulted and methicillin-resistant staph aureus. Patient remains on vancomycin for antibiotic coverage, IV service is following. Today's labs have been reviewed, white blood cell count is improved and is down to 10.9, hemoglobin of 11.9, sodium is 138, potassium is 3.8, chloride is 101, CO2 32, BUN is 12, creatinine 0.57. No fever. No chills, no chest pain, no worsening dyspnea, patient is tolerating ambulation about the room, occasional cough, at times with some blood-tinged sputum, small amount. Continues on Eliquis 5 mg twice daily. No nausea vomiting or diarrhea, lipase level is 132. No abdominal pain. Tolerating oral intake. Objective - Vital Signs Vital signs: Vital Signs Temp 97.1 F L 07/17/21 08:00 Pulse 70 07/17/21 08:00 Resp 16 07/17/21 08:00 BP 156/91 07/17/21 08:00 Pulse Ox 97 07/17/21 08:00 FiO2 30 07/17/21 07:15 Intake & Output 07/16/21 07/17/21 07/17/21 18:59 06:59 18:59 Intake Total 838 Output Total 0 Balance 838 0 Intake: Oral 838 Output: Emesis 0 Other: Voiding Method Toilet # Voids 2 - Exam GENERAL EXAM: Alert, very pleasant, 45-year-old white female on 2 L of oxygen a pulse ox of 93% comfortable in no apparent distress. HEAD: Normocephalic/atraumatic. EYES: Normal reaction of pupils, equal size. Conjunctiva pink, sclera white. NOSE: Clear with pink turbinates. THROAT: No erythema or exudates. NECK: No masses, no JVD, no thyroid enlargement, no adenopathy. CHEST: No chest wall deformity. Symmetrical expansion. LUNGS: Equal air entry with no crackles, wheeze, rhonchi or dullness. CVS: Regular rate and rhythm, normal S1 and S2, no gallops, no murmurs, no rubs ABDOMEN: Soft, distended but nontender, but soft No hepatosplenomegaly, normal bowel sounds, no guarding or rigidity. EXTREMITIES: No clubbing, no edema, no cyanosis, 2+ pulses and upper and lower extremities. MUSCULOSKELETAL: Muscle strength and tone normal. SPINE: No scoliosis or deformity SKIN: No rashes CENTRAL NERVOUS SYSTEM: Alert and oriented -3. No focal deficits, tone is normal in all 4 extremities. PSYCHIATRIC: Alert and oriented -3. Appropriate affect. Intact judgment and insight. - Labs CBC & Chem 7: 07/17/21 07:19 07/17/21 07:19 Labs: Abnormal Lab Results - Last 24 Hours (Table) 07/16/21 07/16/21 07/16/21 Range/Units 15:01 16:53 20:44 WBC (3.8-10.6) k/uL MCHC (31.0-37.0) g/dL Plt Count (150-450) k/uL Neutrophils # (1.3-7.7) k/uL Lymphocytes # (1.0-4.8) k/uL Carbon Dioxide (22-30) mmol/L Glucose (74-99) mg/dL POC Glucose (mg/dL) 303 H 268 H 140 H (75-99) mg/dL Calcium (8.4-10.2) mg/dL ALT (4-34) U/L Total Protein (6.3-8.2) g/dL Albumin (3.5-5.0) g/dL 07/17/21 07/17/21 07/17/21 Range/Units 07:19 07:19 07:20 WBC 10.9 H (3.8-10.6) k/uL MCHC 30.4 L (31.0-37.0) g/dL Plt Count 108 L (150-450) k/uL Neutrophils # 9.5 H (1.3-7.7) k/uL Lymphocytes # 0.8 L (1.0-4.8) k/uL Carbon Dioxide 32 H (22-30) mmol/L Glucose 114 H (74-99) mg/dL POC Glucose (mg/dL) 103 H (75-99) mg/dL Calcium 8.2 L (8.4-10.2) mg/dL ALT 46 H (4-34) U/L Total Protein 5.8 L (6.3-8.2) g/dL Albumin 3.1 L (3.5-5.0) g/dL 07/17/21 Range/Units 12:12 WBC (3.8-10.6) k/uL MCHC (31.0-37.0) g/dL Plt Count (150-450) k/uL Neutrophils # (1.3-7.7) k/uL Lymphocytes # (1.0-4.8) k/uL Carbon Dioxide (22-30) mmol/L Glucose (74-99) mg/dL POC Glucose (mg/dL) 210 H (75-99) mg/dL Calcium (8.4-10.2) mg/dL ALT (4-34) U/L Total Protein (6.3-8.2) g/dL Albumin (3.5-5.0) g/dL Microbiology - Last 24 Hours (Table) 07/14/21 16:30 Blood Culture Gram Stain - Final Blood Blood Culture - Final Methicillin resist S. aureus 07/15/21 20:08 Gram Stain - Preliminary Sputum Sputum Culture - Preliminary 07/10/21 08:03 Blood Culture Gram Stain - Preliminary Blood 07/16/21 08:03 Blood Culture - Final Blood 07/15/21 14:35 Blood Culture Gram Stain - Preliminary Blood 07/15/21 14:35 Blood Culture - Final Blood Assessment and Plan Plan: #1. Bacteremia, related to methicillin-resistant staph aureus, on vancomycin #2. Lactic acidosis, improved #3. Recent hospitalization for acute pancreatitis that was thought to be drug induced, improved #4. 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 Recent hospitalization for acute pneumonia, difficulty breathing, right lung collapse, and acute hypoxic respiratory failure, status post bronchoscopy #6. Chronic A. fib on an requests #7. Diabetes mellitus type 2 #8. Hypertension #9. Hyperlipidemia #10. Previous history of myocardial infarction #11. Sleep apnea #12. 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 Multiple sclerosis #15. Permanent pacemaker implantation and AICD placement #16. ADD/ADHD #17. Anxiety and depression #18. History of cardiac sarcoidosis and secondary cardiomyopathy, most recent echocardiogram reveals impaired left ventricular systolic function with ejection fraction 35-40% #19. History of cardiac arrhythmias related to cardiac sarcoidosis and had undergone previous cardiac MRI and the patient has sinus syndrome and dual- chamber pacemaker/AICD placed Plan: Follow blood culture is persistently positive for presumptive MRSA Patient continues on vancomycin ID service is following We'll obtain another set of blood cultures Continue prednisone at 20 mg daily Continue BiPAP support at night and as needed with pressures of 10 of 5 and FiO2 of 30% Blood cultures remain persistently positive patient will likely need a transesophageal echocardiogram Continue current medical treatment We'll follow I have personally seen and examined the patient, performed the documentation and the assessment and plan as written. Number of minutes spent on the visit: [10] I have personally seen and examined the patient and reviewed the documentation. I performed a joint evaluation with the nurse practitioner in this evaluation was done more than 20 minutes. I fully agree with the documentation above and the plan of care. The patient is still bacteremic with MRSA and the patient remains on vancomycin. May need a TEODORO to rule out endocarditis. Hemodynamically stable. Prednisone dose has been drop down to 20 mg. Using the BiPAP at a pressure of 10/5 centimeters of water. We'll continue to follow. Time with Patient: Less than 30
[2021-07-17 17:33] LABS: Glucose,Whole Blood 259 mg/dL (75-99)
[2021-07-17] MEDS: CALCIUM CARBONATE 500 MG CHEWABLE PO PRN (17:59)
[2021-07-17 21:09] LABS: Glucose,Whole Blood 256 mg/dL (75-99)
[2021-07-17] MEDS: LATANOPROST 0.005% OPHTH DROPS 2.5 ML BTL RIGHT EYE SCH (21:17)
[2021-07-18] MEDS: VANCOMYCIN 1,750 MG in SODIUM CHLORIDE 0.9% 500 ML 500 ML IVPB SCH ×3 (05:34→23:31)
[2021-07-18 07:15] LABS: Glucose,Whole Blood 100 mg/dL (75-99)
[2021-07-18] MEDS: ALBUTEROL HFA INHALER INHALATION PRN ×3 (07:32→15:20)
--- NOTE | 2021-07-18 07:43 | P.PN ---
Subjective Progress Note Date: 07/16/21 Principal diagnosis: MRSA bacteremia Patient is a 45-year-old female with a past medical history significant for diabetes mellitus hypertension hyperlipidemia cardiomyopathy status post AICD placement acute pancreatitis anxiety depression patient recently underwent on bronchoscopy with a biopsy by Dr. Sow on 06/27/2021 and was noticed to have a nonnecrotizing granulomatous and chronic inflammation negative for malignancy, subsequently presented to hospital with the lateral chest pain shortness of breath and cough did have a fever and evidence of MRSA bacteremia. On today's evaluation that is 07/16/2021, patient denies having any fever or chills she still complaining of left-sided chest pain continued have a cough and bring up some sputum, denies any nausea no vomiting no abdominal pain or diarrhea Objective - Vital Signs Vital signs: Vital Signs Temp 97.8 F 07/16/21 08:00 Pulse 68 07/16/21 08:00 Resp 20 07/16/21 08:00 BP 126/87 07/16/21 08:00 Pulse Ox 93 L 07/16/21 08:00 FiO2 Intake & Output 07/15/21 07/16/21 07/16/21 18:59 06:59 18:59 Intake Total 210 120 240 Output Total 0 Balance 210 120 240 Intake: Oral 210 120 240 Output: Emesis 0 Other: # Voids 1 - Exam GENERAL DESCRIPTION: Middle-age female lying in bed in no distress RESPIRATORY SYSTEM: Unlabored breathing , decreased breath sounds at bases HEART: S1 S2 regular rate and rhythm , ABDOMEN: Soft , no tenderness EXTREMITIES: No edema feet - Labs CBC & Chem 7: 07/17/21 07:19 07/17/21 07:19 Labs: Abnormal Lab Results - Last 24 Hours (Table) 07/15/21 07/16/21 07/16/21 Range/Units 14:43 07:34 08:03 ESR (0-20) mm/Hr Creatinine (0.52-1.04) mg/dL POC Glucose (mg/dL) 135 H (75-99) mg/dL C-Reactive Protein (<1.0) mg/dL Procalcitonin 0.57 H 0.64 H (0.02-0.09) ng/mL 07/16/21 07/16/21 Range/Units 08:03 08:03 ESR 64 H (0-20) mm/Hr Creatinine 0.47 L (0.52-1.04) mg/dL POC Glucose (mg/dL) (75-99) mg/dL C-Reactive Protein 17.6 H (<1.0) mg/dL Procalcitonin (0.02-0.09) ng/mL Microbiology - Last 24 Hours (Table) 07/15/21 14:35 Blood Culture Gram Stain - Preliminary Blood 07/15/21 14:35 Blood Culture - Final Blood 07/14/21 16:30 Blood Culture Gram Stain - Preliminary Blood Blood Culture - Preliminary Presumptive MRSA 07/15/21 20:08 Sputum Culture - Preliminary Sputum Assessment and Plan (1) Pneumonia Current Visit: Yes Status: Acute Code(s): J18.9 - PNEUMONIA, UNSPECIFIED ORGANISM SNOMED Code(s): 488346941 Plan: 1patient with MRSA bacteremia more likely secondary to the pneumonia in this patient presented to hospital with increasing shortness of breath hypoxemia with evidence of right middle lobe pneumonia, currently with no other obvious focus for this bacteremia in this patient with no skin lesion or joint swelling and abdominal was soft on clinical examination. 2blood cultures has been repeated to document clearance of bacteremia. 3patient to continue with vancomycin pharmacy to dose target trough of 15 while watching kidney function and vancomycin trough closely. Time with Patient: Less than 30
--- NOTE | 2021-07-18 07:46 | P.PN ---
Subjective Progress Note Date: 07/17/21 Principal diagnosis: MRSA bacteremia Patient is a 45-year-old female with a past medical history significant for diabetes mellitus hypertension hyperlipidemia cardiomyopathy status post AICD placement acute pancreatitis anxiety depression patient recently underwent on bronchoscopy with a biopsy by Dr. Sow on 06/27/2021 and was noticed to have a nonnecrotizing granulomatous and chronic inflammation negative for malignancy, subsequently presented to hospital with the lateral chest pain shortness of breath and cough did have a fever and evidence of MRSA bacteremia. On today's evaluation that is 07/17/2021, patient remains to be afebrile, patient is previous telemetry comfortably and the patient left-sided chest pain has slightly decreased intensity, the patient continued have a cough and bring up some sputum, denies any nausea no vomiting no abdominal pain or diarrhea Objective - Vital Signs Vital signs: Vital Signs Temp 97.1 F L 07/17/21 08:00 Pulse 70 07/17/21 08:00 Resp 16 07/17/21 08:00 BP 156/91 07/17/21 08:00 Pulse Ox 97 07/17/21 08:00 FiO2 30 07/17/21 07:15 Intake & Output 07/16/21 07/17/21 07/17/21 18:59 06:59 18:59 Intake Total 838 Output Total 0 Balance 838 0 Intake: Oral 838 Output: Emesis 0 Other: Voiding Method Toilet # Voids 2 - Exam GENERAL DESCRIPTION: Middle-age female lying in bed in no distress RESPIRATORY SYSTEM: Unlabored breathing , decreased breath sounds at bases HEART: S1 S2 regular rate and rhythm , ABDOMEN: Soft , no tenderness EXTREMITIES: No edema feet - Labs CBC & Chem 7: 07/17/21 07:19 07/17/21 07:19 Labs: Abnormal Lab Results - Last 24 Hours (Table) 07/16/21 07/16/21 07/16/21 Range/Units 15:01 16:53 20:44 WBC (3.8-10.6) k/uL MCHC (31.0-37.0) g/dL Plt Count (150-450) k/uL Neutrophils # (1.3-7.7) k/uL Lymphocytes # (1.0-4.8) k/uL Carbon Dioxide (22-30) mmol/L Glucose (74-99) mg/dL POC Glucose (mg/dL) 303 H 268 H 140 H (75-99) mg/dL Calcium (8.4-10.2) mg/dL ALT (4-34) U/L Total Protein (6.3-8.2) g/dL Albumin (3.5-5.0) g/dL 07/17/21 07/17/21 07/17/21 Range/Units 07:19 07:19 07:20 WBC 10.9 H (3.8-10.6) k/uL MCHC 30.4 L (31.0-37.0) g/dL Plt Count 108 L (150-450) k/uL Neutrophils # 9.5 H (1.3-7.7) k/uL Lymphocytes # 0.8 L (1.0-4.8) k/uL Carbon Dioxide 32 H (22-30) mmol/L Glucose 114 H (74-99) mg/dL POC Glucose (mg/dL) 103 H (75-99) mg/dL Calcium 8.2 L (8.4-10.2) mg/dL ALT 46 H (4-34) U/L Total Protein 5.8 L (6.3-8.2) g/dL Albumin 3.1 L (3.5-5.0) g/dL 07/17/21 Range/Units 12:12 WBC (3.8-10.6) k/uL MCHC (31.0-37.0) g/dL Plt Count (150-450) k/uL Neutrophils # (1.3-7.7) k/uL Lymphocytes # (1.0-4.8) k/uL Carbon Dioxide (22-30) mmol/L Glucose (74-99) mg/dL POC Glucose (mg/dL) 210 H (75-99) mg/dL Calcium (8.4-10.2) mg/dL ALT (4-34) U/L Total Protein (6.3-8.2) g/dL Albumin (3.5-5.0) g/dL Microbiology - Last 24 Hours (Table) 07/14/21 16:30 Blood Culture Gram Stain - Final Blood Blood Culture - Final Methicillin resist S. aureus 07/15/21 20:08 Gram Stain - Preliminary Sputum Sputum Culture - Preliminary 07/10/21 08:03 Blood Culture Gram Stain - Preliminary Blood 07/16/21 08:03 Blood Culture - Final Blood 07/15/21 14:35 Blood Culture Gram Stain - Preliminary Blood 07/15/21 14:35 Blood Culture - Final Blood Assessment and Plan (1) Pneumonia Current Visit: Yes Status: Acute Code(s): J18.9 - PNEUMONIA, UNSPECIFIED ORGANISM SNOMED Code(s): 895151550 Plan: 1patient with MRSA bacteremia more likely secondary to the pneumonia in this patient presented to hospital with increasing shortness of breath hypoxemia with evidence of right middle lobe pneumonia, currently with no other obvious focus for this bacteremia in this patient with no skin lesion or joint swelling and abdominal was soft on clinical examination. 2blood cultures from 07/16/2021 positive, blood cultures repeated daily to document clearance of bacteremia, sputum culture so far pending 3patient to continue with vancomycin pharmacy to dose target trough of 15 while watching kidney function and vancomycin trough closely. Time with Patient: Less than 30
[2021-07-18] MEDS: INSULIN ASPART (NovoLOG) 100 UNIT/ML VIAL SQ SCH ×4 (08:08→20:06)
[2021-07-18] MEDS: EZETIMIBE 10 MG TAB PO SCH (08:13)
[2021-07-18] MEDS: carvediloL 3.125 MG TAB PO SCH ×2 (08:13→20:54)
[2021-07-18] MEDS: LEVOTHYROXINE 88 MCG TAB PO SCH (08:13)
[2021-07-18] MEDS: APIXABAN 5 MG TAB PO SCH ×2 (08:14→20:53)
[2021-07-18] MEDS: PARoxetine 10 MG TAB PO SCH (08:14)
[2021-07-18] MEDS: valACYclovir HCL 1,000 MG TABLET PO SCH ×2 (08:14→20:53)
[2021-07-18] MEDS: FUROSEMIDE 40 MG TAB PO SCH (08:14)
[2021-07-18] MEDS: predniSONE 20 MG TAB PO SCH (08:14)
[2021-07-18] MEDS: PANTOPRAZOLE 40 MG TABLET PO SCH ×2 (08:14→17:49)
[2021-07-18 09:27] LABS: Basophils # (A) 0.03 X 10*3/uL (0.00-0.10); Basophils % (A) 0.3 %; Eosinophils # (A) 0.17 X 10*3/uL (0.04-0.35); Eosinophils % (A) 1.6 %; HCT 38.9 % (37.2-46.3); HGB 12.2 g/dL (12.0-15.0); Immature Grans, Automated 0.4 %; Lymphocytes % (A) 8.7 %; MCH 27.9 pg (27.0-32.0); MCHC 31.4 g/dL (32.0-37.0); Monocytes # (A) 0.59 X 10*3/uL (0.20-1.00); Monocytes % (A) 5.7 %; NRBC Per 100 WBC 0 /100 WBCS (0.0-0.0); Neutrophils # (A) 8.63 X 10*3/uL (1.80-7.70); Neutrophils % (A) 83.3 %; Platelet Count 111 X 10*3/uL (140-440); RBC 4.37 X 10*6/uL (4.10-5.20); RDW 14.5 % (11.5-14.5); WBC 10.36 X 10*3/uL (4.50-10.00)
[2021-07-18 09:52] LABS: African American GFR (CKD) 120.4 (60.0-200.0); Albumin 3.2 g/dL (3.8-4.9); Albumin/Globulin Ratio 1.19 (1.60-3.17); Anion Gap 9.9 mmol/L (10.00-18.00); BUN/Creat Ratio 16.29 Ratio (12.00-20.00); Blood Urea Nitrogen 11.4 mg/dL (9.0-27.0); Calcium 8.4 mg/dL (8.7-10.3); Carbon Dioxide 30.1 mmol/L (20.0-27.5); Globulin 2.7 g/dL (1.6-3.3); Non-African American GFR(CKD) 103.9 (60.0-200.0); Potassium 3.4 mmol/L (3.5-5.5); Total Bilirubin 0.9 mg/dL (0.30-1.20); Total Protein 5.9 g/dL (6.2-8.2)
--- NOTE | 2021-07-18 11:09 | P.CRDCN ---
History of Present Illness Consult date: 07/18/21 History of present illness: HISTORY OF PRESENT ILLNESS: This is a 45 year old female with a past medical history significant for cardiomyopathy with AICD implantation, paroxysmal atrial fibrillation on anticoagulation with Eliquis, diabetes, hypertension, hyperlipidemia, multiple sclerosis, and cardiac sarcoidosis. Patient follows in the office with Dr. Hinojosa. We have been asked to see the patient in consultation for TEODORO. Patient examined at the bedside. Patient denies chest pain or pressure. She currently denies shortness of breath. Vital signs are stable. Patient is receiving antibiotics per infectious disease. * EKG reveals paced rhythm with underlying atrial flutter * Chest xray right lower lobe pneumonia which is slightly improved compared to old exam. No heart failure seen. * Laboratory data: W BC 10.36. Hemoglobin 12.2. Platelet count 111. Sodium 142. Potassium 3.4. BUN 11. Creatinine 0.7. * Current home cardiac medications include Eliquis 5 mg twice a day, that he attend milligrams daily, carvedilol 3.125 mg twice a day * Echocardiogram obtained in April 2020 revealed ejection fraction 40-45%. Mild mitral regurgitation. Mild tricuspid regurgitation. * Repeat echocardiogram performed in November 2020 revealed ejection fraction 50- 55%, trace to mild MR, mild TR, and moderate pulmonary hypertension * Repeat echocardiogram performed in June 2021 revealed ejection fraction 35-40%. Valves were difficult to see. * Patient underwent cardiac catheterization in November 2020 revealing normal coronary arteries REVIEW OF SYSTEMS: At the time of my exam: CONSTITUTIONAL: Denies fever or chills. HEENT: Denies blurred vision, vision changes, or eye pain. Denies hemoptysis CARDIOVASCULAR: Denies chest pain. Denies orthopnea. Denies PND. Denies palpitations RESPIRATORY: Denies shortness of breath. GASTROINTESTINAL: Denies abdominal pain. Denies nausea or vomiting. HEMATOLOGIC: Denies bleeding disorders. GENITOURINARY: Denies any blood in urine. SKIN: Denies pruitis. Denies rash. PHYSICAL EXAM: VITAL SIGNS: Reviewed. GENERAL: Well-developed in no acute distress. HEENT: Head is normocephalic. Pupils are equal, round. Sclerae anicteric. Mucous membranes of the mouth are moist. Neck supple. No JVD or thyromegaly LUNGS: Respirations even and unlabored. Lungs diminished to auscultation bilaterally. HEART: Irregular rate and rhythm. S1 and S2 heard. ABDOMEN: Soft. Nondistended. Nontender. EXTREMITIES: Normal range of motion. No clubbing or cyanosis. Peripheral pulses intact. 2+ lower extremity edema NEUROLOGIC: Awake and alert. Oriented x 3. ASSESSMENT: MRSA bacteremia Recent hospitalization for acute pneumonia and acute hypoxic respiratory failure, status post bronchoscopy Nonischemic cardiomyopathy with previous AICD Paroxysmal atrial fibrillation/typical atrial flutter on anticoagulation with Eliquis Cardiac sarcoidosis Hypertension Hyperlipidemia Diabetes mellitus PLAN: Continue current cardiac medications Continue anticoagulation with Eliquis Continue antibiotics per infectious disease Repeat 2-D echo TEODORO is requested by pulmonary to rule out endocarditis Dr. Izaguirre recommends TEODORO to be performed with anesthesia present Unable to do TEODORO today as patient ate breakfast TEODORO unable to be performed tomorrow secondary to staffing shortage within the anesthesia department Possible TEODORO to be performed Thursday Further recommendations pending patient course Nurse practitioner note has been reviewed by physician. Signing provider agrees with the documented findings, assessment, and plan of care. Past Medical History Past Medical History: Atrial Fibrillation, Heart Failure, Diabetes Mellitus, GI Bleed, Hyperlipidemia, Hypertension, Myocardial Infarction ([place]), Musculoskeletal Disorder, Pneumonia, Skin Disorder, Sleep Apnea/CPAP/BIPAP, Thyroid Disorder Additional Past Medical History / Comment(s): "Have had 6 months of walking Pneumonia". Hx steroid induced gluacoma(resolved). Neurosarcoidosis, sarcoidosis which caused heart problems. Eczema. Hx [place] Palsy with right facial droop. Hx concussion at age 12, has some learning disablity-problems with spelling. MS. Graves Disease, " 7 auto immune diseases". DDD. CPAP use. "Weakness all over". Diarrhea and occasional blood in stool. "27 lesions on her brain". "INTERMITTENT GI BLEED" AND PROBLEMS SWALLOWING. Last Myocardial Infarction Date:: 11/15/20 History of Any Multi-Drug Resistant Organisms: MRSA Date of last positivie culture/infection: 07/14/21 MDRO Source:: MRSA BLOOD Past Surgical History: AICD, Cholecystectomy, Heart Catheterization Additional Past Surgical History / Comment(s): VENOGRAM W/CINEFLUROSCOPY. Past Anesthesia/Blood Transfusion Reactions: No Reported Reaction Additional Past Anesthesia/Blood Transfusion Reaction / Comment(s): Claustrophobia. Type of Cardiac Device: Permanent Pacemaker, AICD Device Placement Date:: 03/01 Past Psychological History: ADD/ADHD, Anxiety, Depression Smoking Status: Never smoker Past Alcohol Use History: None Reported Past Drug Use History: None Reported - Past Family History Mother Family Medical History: AFIB, Deep Vein Thrombosis (DVT) Father Family Medical History: Osteoarthritis (OA), Thyroid Disorder Medications and Allergies Home Medications Medication Instructions Recorded Confirmed Type metFORMIN HCL [Glucophage] 1,000 mg PO BID-W/MEALS 11/10/17 07/14/21 History Ezetimibe [Zetia] 10 mg PO DAILY 10/06/18 07/14/21 History Apixaban [Eliquis] 5 mg PO BID #180 tab 02/15/19 07/14/21 Rx carvediloL [Coreg] 3.125 mg PO BID #180 tablet 02/16/19 07/14/21 Rx PARoxetine HCL 30 mg PO DAILY 06/23/19 07/14/21 History Artificial Tears-Hypromellose 1 drop BOTH EYES TID PRN 11/13/20 07/14/21 History [Artificial Tear Drops] Albuterol Inhaler [Ventolin Hfa 2 puff INHALATION RT-Q4H PRN 06/26/21 07/14/21 History Inhaler] Acetaminophen [Tylenol] 1,000 mg PO Q4-6H PRN 07/01/21 07/14/21 History Latanoprost/Pf [Latanoprost 0.005% 1 drop RIGHT EYE HS 07/01/21 07/14/21 History Eye Drop] Levothyroxine Sodium [Synthroid] 175 mcg PO DAILY 07/01/21 07/14/21 History Furosemide [Lasix] 40 mg PO DAILY #30 tablet 07/05/21 07/14/21 Rx glipiZIDE [Glucotrol] 5 mg PO AC-BRKFST #30 tab 07/05/21 07/14/21 Rx guaiFENesin-Coden 100-10MG/5ML 10 ml PO TID PRN #1000 ml 07/05/21 07/14/21 Rx [Robitussin AC] predniSONE 50 mg PO DAILY #30 tab 07/05/21 07/14/21 Rx HYDROcodone/APAP 5-325MG [[place] 1 tab PO Q6HR PRN 3 Days #12 tab 07/11/21 07/14/21 Rx 5-325] Fenofibrate [Lofibra] 160 mg PO DIRECTED 07/14/21 07/14/21 History Allergies Allergy/AdvReac Type Severity Reaction Status Date / Time Cacfozo-LZQ-PfT Reductase AdvReac FACIAL Verified 07/14/21 16:26 Inhibitor NUMBNESS [Iizvaqo-Tnb-Ndw Reductase Inhibitor] SEAFOOD Allergy Rash/Hives Uncoded 07/07/21 16:23 Physical Exam Vitals: Vital Signs Temp Pulse Pulse Resp BP BP Pulse Ox 07/18/21 07:46 98.3 F 69 16 150/90 92 L 07/18/21 03:49 07/18/21 03:34 97.8 F 71 17 117/81 100 07/18/21 00:07 07/17/21 20:03 97.6 F 70 18 137/89 94 L 07/17/21 14:00 98.6 F 70 16 114/76 96 FiO2 07/18/21 07:46 07/18/21 03:49 30 07/18/21 03:34 07/18/21 00:07 30 07/17/21 20:03 07/17/21 14:00 Intake and Output 07/17/21 07/18/21 07/18/21 22:59 06:59 14:59 Intake Total 240 Output Total 0 0 Balance 0 0 240 Intake: Oral 240 Output: Emesis 0 0 Other: Voiding Method Toilet # Voids 1 2 Results 07/18/21 06:44 07/18/21 06:44 Cardiac Enzymes 07/18/21 Range/Units 06:44 AST 23 (13-35) U/L CBC 07/18/21 Range/Units 06:44 WBC 10.36 H (4.50-10.00) X 10*3/uL RBC 4.37 (4.10-5.20) X 10*6/uL Hgb 12.2 (12.0-15.0) g/dL Hct 38.9 (37.2-46.3) % Plt Count 111 L (140-440) X 10*3/uL Comprehensive Metabolic Panel 07/18/21 Range/Units 06:44 Sodium 142 (135-145) mmol/L Potassium 3.4 L (3.5-5.5) mmol/L Chloride 102 (96-109) mmol/L Carbon Dioxide 30.1 H (20.0-27.5) mmol/L BUN 11.4 (9.0-27.0) mg/dL Creatinine 0.7 (0.6-1.5) mg/dL Glucose 109 (70-110) mg/dL Calcium 8.4 L (8.7-10.3) mg/dL AST 23 (13-35) U/L ALT 48 H (8-44) U/L Alkaline Phosphatase 93 (41-126) U/L Total Protein 5.9 L (6.2-8.2) g/dL Albumin 3.2 L (3.8-4.9) g/dL Current Medications Generic Name Dose Route Start Last Admin Trade Name Freq PRN Reason Stop Dose Admin Acetaminophen 650 mg 07/14/21 17:17 07/17/21 07:00 Acetaminophen Tab 325 Mg Tab PO 650 mg Q6HR PRN Administration Mild Pain or Fever > 100.5 Hydrocodone Bitart/Acetaminophen 1 each 07/14/21 17:18 07/16/21 07:45 Hydrocodone/Apap 5-325mg 1 Each Tab PO 1 each Q6HR PRN Administration Pain Albuterol Sulfate 2 puff 07/14/21 17:18 07/18/21 07:32 Albuterol Hfa Inhaler INHALATION 2 puff RT-Q4H PRN Administration Shortness Of Breath Alprazolam 0.25 mg 07/14/21 17:17 07/15/21 02:08 Alprazolam 0.25 Mg Tab PO 0.25 mg Q6HR PRN Administration Anxiety Apixaban 5 mg 07/14/21 21:00 07/18/21 08:14 Apixaban 5 Mg Tab PO 5 mg BID JOHN PAUL Administration Protocol Artificial Tears 1 drops 07/14/21 17:18 Artificial Tears-Hypromellose Drops 15 Ml Btl BOTH EYES TID PRN Dry Eye(s) Calcium Carbonate/Glycine 1,000 mg 07/16/21 02:14 07/17/21 17:59 Calcium Carbonate 500 Mg Chewable PO 1,000 mg QID PRN Administration Heartburn Carvedilol 3.125 mg 07/14/21 21:00 07/18/21 08:13 Carvedilol 3.125 Mg Tab PO 3.125 mg BID JOHN PAUL Administration Ezetimibe 10 mg 07/15/21 09:00 07/18/21 08:13 Ezetimibe 10 Mg Tab PO 10 mg DAILY JOHN PAUL Administration Furosemide 40 mg 07/15/21 09:00 07/18/21 08:14 Furosemide 40 Mg Tab PO 40 mg DAILY JOHN PAUL Administration Vancomycin HCl 1,750 mg/ 500 mls @ 167 mls/hr 07/17/21 14:00 07/18/21 05:34 Sodium Chloride IVPB 167 mls/hr Q8H JOHN PAUL Administration Insulin Aspart 0 unit 07/16/21 17:30 07/18/21 08:08 Insulin Aspart (Novolog) 100 Unit/Ml Vial SQ Not Given ACHS [facility] Protocol Latanoprost 1 drops 07/14/21 21:00 07/17/21 21:17 Latanoprost 0.005% Ophth Drops 2.5 Ml Btl RIGHT EYE 1 drops HS JOHN PAUL Administration Levothyroxine Sodium 176 mcg 07/15/21 09:00 07/18/21 08:13 Levothyroxine 88 Mcg Tab PO 176 mcg DAILY JOHN PAUL Administration Melatonin 3 mg 07/14/21 17:17 Melatonin 3 Mg Tablet PO HS PRN Insomnia Miscellaneous Information 1 each 07/14/21 15:45 Pneumonia Protocol Utilized 1 Each Misc PO ONCE PRN Per Protocol Miscellaneous Information 0 each 07/19/21 05:00 Vancomycin Trough Due 1 Each Misc MISCELLANE 07/19/21 05:01 DIRECTED ONE Naloxone HCl 0.2 mg 07/14/21 17:16 Naloxone 0.4 Mg/Ml 1 Ml Vial IV Q2M PRN Opioid Reversal Ondansetron HCl 4 mg 07/14/21 17:17 07/15/21 02:48 Ondansetron 4 Mg/2 Ml Vial IVP 4 mg Q8HR PRN Administration Nausea And Vomiting Pantoprazole Sodium 40 mg 07/14/21 17:30 07/18/21 08:14 Pantoprazole 40 Mg Tablet PO 40 mg AC-BID JOHN PAUL Administration Paroxetine HCl 30 mg 07/15/21 09:00 07/18/21 08:14 Paroxetine 10 Mg Tab PO 30 mg DAILY JOHN PAUL Administration Prednisone 20 mg 07/16/21 09:00 07/18/21 08:14 Prednisone 20 Mg Tab PO 20 mg DAILY JOHN PAUL Administration Valacyclovir HCl 2,000 mg 07/18/21 09:00 07/18/21 08:14 Valacyclovir Hcl 1,000 Mg Tablet PO 07/18/21 21:01 2,000 mg BID JOHN PAUL Administration Protocol Intake and Output 07/17/21 07/18/21 07/18/21 22:59 06:59 14:59 Intake Total 240 Output Total 0 0 Balance 0 0 240 Intake: Oral 240 Output: Emesis 0 0 Other: Voiding Method Toilet # Voids 1 2 07/18/21 06:44 07/18/21 06:44
[2021-07-18 11:54] LABS: Glucose,Whole Blood 194 mg/dL (75-99)
--- NOTE | 2021-07-18 12:55 | P.PN ---
Subjective Progress Note Date: 07/18/21 Physical very pleasant 45-year-old female patient with a known history of previous admission for acute pancreatitis, atrial fibrillation, diabetes mellitus, GI bleeding, hypertension, hyperlipidemia, cardiomyopathy status post AICD placement, anxiety/depression. 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 She had undergone bronchoscopy with biopsies on 06/27/[address] Sow. She was found to have confluent nonnecrotizing granulomas and chronic inflammation. Negative for malignancy. The right middle lobe collapse. She is on an antibiotic and prednisone 50 mg daily. She presented to the emergency room again yesterday with complaints of abdominal discomfort that felt similar to her previous pancreatitis. She did develop anxiety with shortness of breath. She had another CT angiogram that revealed no evidence of pulmonary embolism. There is bilateral pulmonary atelectasis mainly in the right middle lobe consistent with postobstructive atelectasis however it is improved compared to previous. White count 14.5. Hemoglobin 13.2. Platelets 121. Sodium 136. Potassium 4.6. Bicarb 20. BUN 16. Creatinine 0.7. Initial lactic acid 2.8 currently 1.7. Initial blood cultures revealing Staphylococcus aureus. The patient was stating she had some edema and drainage from her right brachial IV site from her previous admission. She was just discharged home on 07/11/2021. She been initiated on vancomycin and azithromycin along with Zosyn. She received 500 mL of fluid resuscitation. She is seen today the patient on the regular medical. She is currently awake and alert in no acute distress. She denies any worsening shortness of breath. Occasional cough with some blood-tinged sputum. She is maintaining O2 saturation in the 90s on 2 L/m per nasal cannula. She's afebrile. Her lipase was 148 yesterday. Down to 132 today. ProBNP 5450. Echocardiogram from previous admission revealed moderately impaired left ventricular systolic function with ejection fraction of 35-40%. She is continued on oral diuretics. She is anticoagulated with Eliquis. On 07/16/2021 patient seen in follow-up on medical surgical floor. She is resting comfortably in bed, denies any acute distress, on 2 L of oxygen patient satting 93-94%. Vital signs have been stable, occasional cough, at times with production of small amount of blood-tinged phlegm. Patient remains on Eliquis. CT angiogram of the chest showed no evidence of pulmonary embolism. And bilateral pulmonary atelectasis, and right middle lobe postobstructive atelectasis, with improvement in aeration compared the last admission. No abdominal pain, no nausea or vomiting, patient remains on small dose of prednisone 20 mg daily, patient was found to be bacteremic, so far blood cu ltures from 07/14/2021 and 07/15/2021 were positive, with preliminary results suggesting presumptive MRSA, sputum culture is pending. Patient is on vancomycin for antibiotic coverage. Patient requested to be put back on BiPAP support at bedtime because she feels short of breath at nighttime. Patient continues on home dose oral Lasix. She feels like her abdomen is bloated, but denies any abdominal pain. Labs have been reviewed, white blood cell count is improved, and is down to 14.5, electrolytes and renal profile are unremarkable. Pro-calcitonin level of increased and is up to 0.64 on today's labs. On 07/17/2021 patient seen in follow-up on medical surgical floor. Follow blood culture from 07/16/2021 is persistently positive for gram-positive cocci in clusters, and blood culture from 07/14/2021 resulted and methicillin-resistant staph aureus. Patient remains on vancomycin for antibiotic coverage, IV service is following. Today's labs have been reviewed, white blood cell count is improved and is down to 10.9, hemoglobin of 11.9, sodium is 138, potassium is 3.8, chloride is 101, CO2 32, BUN is 12, creatinine 0.57. No fever. No chills, no chest pain, no worsening dyspnea, patient is tolerating ambulation about the room, occasional cough, at times with some blood-tinged sputum, small amount. Continues on Eliquis 5 mg twice daily. No nausea vomiting or diarrhea, lipase level is 132. No abdominal pain. Tolerating oral intake. 07/18/2021, seeing the patient in follow-up regarding her complicated septicemia. The patient has persistent bacteremia with MRSA and the patient remains on IV vancomycin. The most recent blood cultures from 07/17/2021, not to be positive for MRSA and I'm getting very highly suspicious that the patient may have an underlying endovascular infection, either infection of a pacemaker wires or infective endocarditis. The patient is afebrile. Hemodynamically stable. No worsening shortness of breath pH is pulmonary sarcoidosis. I kept on the 20 mg of prednisone her white cell count today's attempt 0.3 with a hemoglobin of 12.2. Rest of the blood work essentially within normal limits. BUN is at 11 with a creatinine of 0.7 and the sodium level is at 142. The patient's LFTs are adequate for now. The patient is afebrile. She is having some cold sores on her lips and the patient was started on Valtrex in that regard. The patient remains on the same medications including in the correlation with Eliquis 5 mg by mouth twice a day. She is also on Lasix 40 mg by mouth daily. She is using the BiPAP overnight at a pressure of 10/5 cm of water and the patient is using oxygen on 2 L per minute nasal cannula. On room air oxygen, the pulse ox is around 92%. Objective - Vital Signs Vital signs: Vital Signs Temp 98.3 F 07/18/21 07:46 Pulse 69 07/18/21 07:46 Resp 16 07/18/21 07:46 BP 150/90 07/18/21 07:46 Pulse Ox 92 L 07/18/21 07:46 FiO2 30 07/18/21 03:49 Intake & Output 07/17/21 07/18/21 07/18/21 18:59 06:59 18:59 Intake Total 240 Output Total 0 Balance 0 240 Intake: Oral 240 Output: Emesis 0 Other: Voiding Method Toilet # Voids 1 2 - Exam GENERAL EXAM: Alert, very pleasant, 45-year-old white female on 2 L of oxygen a pulse ox of 93% comfortable in no apparent distress. HEAD: Normocephalic/atraumatic. EYES: Normal reaction of pupils, equal size. Conjunctiva pink, sclera white. NOSE: Clear with pink turbinates. THROAT: No erythema or exudates. NECK: No masses, no JVD, no thyroid enlargement, no adenopathy. CHEST: No chest wall deformity. Symmetrical expansion. LUNGS: Equal air entry with no crackles, wheeze, rhonchi or dullness. CVS: Regular rate and rhythm, normal S1 and S2, no gallops, no murmurs, no rubs ABDOMEN: Soft, distended but nontender, but soft No hepatosplenomegaly, normal bowel sounds, no guarding or rigidity. EXTREMITIES: No clubbing, no edema, no cyanosis, 2+ pulses and upper and lower extremities. MUSCULOSKELETAL: Muscle strength and tone normal. SPINE: No scoliosis or deformity SKIN: No rashes CENTRAL NERVOUS SYSTEM: Alert and oriented -3. No focal deficits, tone is normal in all 4 extremities. PSYCHIATRIC: Alert and oriented -3. Appropriate affect. Intact judgment and insight. - Labs CBC & Chem 7: 07/18/21 06:44 07/18/21 06:44 Labs: Abnormal Lab Results - Last 24 Hours (Table) 07/17/21 07/17/21 07/18/21 Range/Units 17:31 21:08 06:44 WBC (4.50-10.00) X 10*3/uL MCHC (32.0-37.0) g/dL Plt Count (140-440) X 10*3/uL MPV (9.5-12.2) fL Neutrophils # (1.80-7.70) X 10*3/uL Potassium 3.4 L (3.5-5.5) mmol/L Carbon Dioxide 30.1 H (20.0-27.5) mmol/L Anion Gap 9.90 L (10.00-18.00) mmol/L POC Glucose (mg/dL) 259 H 256 H (75-99) mg/dL Calcium 8.4 L (8.7-10.3) mg/dL ALT 48 H (8-44) U/L Total Protein 5.9 L (6.2-8.2) g/dL Albumin 3.2 L (3.8-4.9) g/dL Albumin/Globulin Ratio 1.19 L (1.60-3.17) g/dL 07/18/21 07/18/21 07/18/21 Range/Units 06:44 07:13 11:52 WBC 10.36 H (4.50-10.00) X 10*3/uL MCHC 31.4 L (32.0-37.0) g/dL Plt Count 111 L (140-440) X 10*3/uL MPV 13.0 H (9.5-12.2) fL Neutrophils # 8.63 H (1.80-7.70) X 10*3/uL Potassium (3.5-5.5) mmol/L Carbon Dioxide (20.0-27.5) mmol/L Anion Gap (10.00-18.00) mmol/L POC Glucose (mg/dL) 100 H 194 H (75-99) mg/dL Calcium (8.7-10.3) mg/dL ALT (8-44) U/L Total Protein (6.2-8.2) g/dL Albumin (3.8-4.9) g/dL Albumin/Globulin Ratio (1.60-3.17) g/dL Microbiology - Last 24 Hours (Table) 07/17/21 14:19 Blood Culture Gram Stain - Preliminary Blood 07/15/21 14:35 Blood Culture Gram Stain - Final Blood Blood Culture - Final Methicillin resist S. aureus 07/17/21 14:19 Blood Culture - Final Blood 07/17/21 07:19 Blood Culture Gram Stain - Preliminary Blood 07/15/21 20:08 Gram Stain - Final Sputum Sputum Culture - Final 07/10/21 08:03 Blood Culture Gram Stain - Preliminary Blood 07/17/21 07:19 Blood Culture - Final Blood 07/14/21 16:30 Blood Culture Gram Stain - Final Blood Blood Culture - Final Methicillin resist S. aureus Assessment and Plan Plan: #1. MRSA sepsis with persistent bacteremia, currently on vancomycin. Most recent blood culture from 06/17/2019 was positive. Consider underlying endovascular infection such as endocarditis versus pacemaker wire infection. Remains hemodynamically stable and afebrile. No significant leukocytosis. The pro calcitonin level was at 0.6. The exact source of the MRSA in the blood is not clear. This could have been from a phlebitis in the right upper extremity from recent hospitalization. #2. 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 The patient currently is on prednisone 20 mg by mouth daily #3. Recent hospitalization for acute pancreatitis that was thought to be drug induced, improved #4. 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 Recent hospitalization for acute pneumonia, difficulty breathing, right lung collapse, and acute hypoxic respiratory failure, status post bronchoscopy #6. Chronic A. fib on Eliquis on outpatient basis and this medication has been resumed for now #7. Diabetes mellitus type 2 #8. Hypertension #9. Hyperlipidemia #10. Previous history of myocardial infarction #11. Sleep apnea #12. 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 Multiple sclerosis #15. Permanent pacemaker implantation and AICD placement #16. ADD/ADHD #17. Anxiety and depression #18. History of cardiac sarcoidosis and secondary cardiomyopathy, most recent echocardiogram reveals impaired left ventricular systolic function with ejection fraction 35-40% #19. History of cardiac arrhythmias related to cardiac sarcoidosis and had undergone previous cardiac MRI and the patient has sinus syndrome and dual- chamber pacemaker/AICD placed #20, cold sores and the patient is currently on Valtrex Plan: Follow-up blood cultures Continued IV vancomycin Cardiology consultation for a TEODORO, possible cardioversion Repeat another set of blood cultures in a.m. Continue prednisone at 20 mg daily Continue BiPAP support at night and as needed with pressures of 10 of 5 and FiO2 of 30% Blood cultures remain persistently positive patient will likely need a transesophageal echocardiogram Continue current medical treatment We'll follow Prognosis poor baseline above-mentioned comorbidities. Very much concerned about ongoing bacteremia. Her condition may decompensate because of an underlying sepsis. She was made aware.
--- NOTE | 2021-07-18 15:39 | P.PN ---
Subjective Progress Note Date: 07/18/21 No new complaints today. Patient continues to have persistent bacteremia for the last 5 days, including today. Cardiology consulted for consideration TEODORO, pending tomorrow morning. Gen: awake, alert HEENT: normocephalic, atraumatic, good hearing acuity, moist mucous membranes Resp: good air exchange, breathing comfortably with no accessory muscle use CVS: good distal perfusion x 4, GI: soft, NTTP, ND : no SPT, no CVAT, reyes catheter not present MSK: no pitting edema, no clubbing Neuro: non-focal, moving all extremities Psych: cooperative, euthymic mood Assessment/plan: MRSA bacteremia overall continue IV antibiotics as per infectious disease Repeat blood cultures daily til clearance Patient started on vancomycin Initially was on azithromycin and Zosyn that are now discontinued We'll check echocardiogram, TEODORO Infection disease consulted Sarcoidosis with pulmonary, cardiac involvement Stable, continue home dose of prednisone Pulmonary medicine following Chronic CHF with EF 35-50% status post AICD placement Continue Coreg, continue Lasix Not on AZEB inhibitor Morbid obeisty with BM 43.6 and obstructive sleep apnea Recommend structured outpatient weight loss. Continue CPAP Anxiety and depression Continue Paxil Patient is requesting for Xanax as needed, discussed that in the long run she will benefit from psychiatric rest follow-up and careful titration of regimen for her anxiety and depression Recent pancreatitis Reported abdominal discomfort with fluid Check lipase, advance diet slowly as tolerated Atrial fibrillation Continue Coreg and Eliquis Insomnia Continue melatonin DM 2 with hyperglycemia Hold oral hypoglycemic Hemoglobin is 7.3 Continues on sliding scale Dyslipidemia Cont fenofibrate, zetia Hypothyroidism Cont levothyroxine CODE STATUS: Full code DVT prophylaxis: Lovenox Dispo Plan: Pending hospital course, likely back to home to be determined Objective - Vital Signs Vital signs: Vital Signs Temp 98.4 F 07/18/21 13:45 Pulse 68 07/18/21 13:45 Resp 18 07/18/21 13:45 BP 132/76 07/18/21 13:45 Pulse Ox 95 07/18/21 13:45 FiO2 30 07/18/21 03:49 Intake & Output 07/17/21 07/18/21 07/18/21 18:59 06:59 18:59 Intake Total 358 Output Total 0 Balance 0 358 Intake: Oral 358 Output: Emesis 0 Other: Voiding Method Toilet # Voids 1 2 6 # Bowel Movements 5 - Labs CBC & Chem 7: 07/18/21 06:44 07/18/21 06:44 Labs: Abnormal Lab Results - Last 24 Hours (Table) 07/17/21 07/17/21 07/18/21 Range/Units 17:31 21:08 06:44 WBC (4.50-10.00) X 10*3/uL MCHC (32.0-37.0) g/dL Plt Count (140-440) X 10*3/uL MPV (9.5-12.2) fL Neutrophils # (1.80-7.70) X 10*3/uL Potassium 3.4 L (3.5-5.5) mmol/L Carbon Dioxide 30.1 H (20.0-27.5) mmol/L Anion Gap 9.90 L (10.00-18.00) mmol/L POC Glucose (mg/dL) 259 H 256 H (75-99) mg/dL Calcium 8.4 L (8.7-10.3) mg/dL ALT 48 H (8-44) U/L Total Protein 5.9 L (6.2-8.2) g/dL Albumin 3.2 L (3.8-4.9) g/dL Albumin/Globulin Ratio 1.19 L (1.60-3.17) g/dL 07/18/21 07/18/21 07/18/21 Range/Units 06:44 07:13 11:52 WBC 10.36 H (4.50-10.00) X 10*3/uL MCHC 31.4 L (32.0-37.0) g/dL Plt Count 111 L (140-440) X 10*3/uL MPV 13.0 H (9.5-12.2) fL Neutrophils # 8.63 H (1.80-7.70) X 10*3/uL Potassium (3.5-5.5) mmol/L Carbon Dioxide (20.0-27.5) mmol/L Anion Gap (10.00-18.00) mmol/L POC Glucose (mg/dL) 100 H 194 H (75-99) mg/dL Calcium (8.7-10.3) mg/dL ALT (8-44) U/L Total Protein (6.2-8.2) g/dL Albumin (3.8-4.9) g/dL Albumin/Globulin Ratio (1.60-3.17) g/dL Microbiology - Last 24 Hours (Table) 07/17/21 14:18 Blood Culture Gram Stain - Preliminary Blood 07/17/21 14:18 Blood Culture - Final Blood 07/17/21 14:19 Blood Culture Gram Stain - Preliminary Blood 07/15/21 14:35 Blood Culture Gram Stain - Final Blood Blood Culture - Final Methicillin resist S. aureus 07/17/21 14:19 Blood Culture - Final Blood 07/17/21 07:19 Blood Culture Gram Stain - Preliminary Blood 07/15/21 20:08 Gram Stain - Final Sputum Sputum Culture - Final 07/10/21 08:03 Blood Culture Gram Stain - Preliminary Blood 07/17/21 07:19 Blood Culture - Final Blood 07/14/21 16:30 Blood Culture Gram Stain - Final Blood Blood Culture - Final Methicillin resist S. aureus
[2021-07-18 17:31] LABS: Glucose,Whole Blood 236 mg/dL (75-99)
[2021-07-18 20:02] LABS: Glucose,Whole Blood 115 mg/dL (75-99)
[2021-07-18] MEDS: LATANOPROST 0.005% OPHTH DROPS 2.5 ML BTL RIGHT EYE SCH (20:54)
[2021-07-19 06:52] LABS: Glucose,Whole Blood 118 mg/dL (75-99)
[2021-07-19] MEDS ORDERED: SODIUM CHLORIDE 0.9% 500 ML 500 ML IV ONE (07:15)
[2021-07-19] MEDS: INSULIN ASPART (NovoLOG) 100 UNIT/ML VIAL SQ SCH ×4 (07:21→20:28)
[2021-07-19] MEDS ORDERED: PROPOFOL 10 MG/ML 20 ML VIAL IV ONE (07:32)
[2021-07-19] MEDS ORDERED: LIDOCAINE 2% INJ 20 MG/ML (2 ML VIAL) ONE (07:32)
[2021-07-19] MEDS ORDERED: BENZOCAINE SPRAY 1 CAN TOPICAL ONE (07:35)
--- NOTE | 2021-07-19 08:13 | P.TEE ---
Date of Procedure: 07/19/21 Preoperative Diagnosis: Positive blood cultures, atrial flutter and CHF Postoperative Diagnosis: Possible vegetation on the pacemaker lead, 3+ mitral regurgitation and impaired LV function Description of Procedure(s): INDICATION: Rule out endocarditis, septicemia CONSENT: . Informed consent was obtained from the patient PROCEDURE: . Patient was brought to the lab in a fasting state. She was prepped and draped in the usual fashion. The throat was sprayed with Cetacaine. Department of anesthesia provided anesthesia A lubricated Omni probe was introduced into the oropharynx and was advanced into the esophagus. Multiple views were obtained both from the esophagus and stomach. Patient tolerated the procedure well. Color, pulsed and continuous wave Doppler studies were performed. Saline contrast bubble injection was also performed. No immediate complications FINDINGS: . The aortic valve is normal. Mitral valve structure appears to be normal. Tricuspid valve appeared to be normal. There are pacemaker leads in the atrium and also in the ventricle. There appeared to be immobile lesion noted on on the one lead in the atrium just below the cavoatrial junction. This is suggestive of possible vegetation. Most probably this is a cheerleader. The left atrial appendage is free of any clot. Interatrial septum is intact without any spontaneous shunt saline contrast bubble injection did not reveal any crossing of the bubbles across the interatrial septum. There is central, 3+ mitral regurgitation. There is suggestion of reversal of flow in the left upper pulmonary vein. Left ventricle appears to be showing diffuse global hypokinesia IMPRESSION: #1. Mobile lesion noted on the probably atrial lead, suggestive of vegetation #2. 3+ mitral regurgitation #3. Severe global left ventricular dysfunction. #4. Left atrial enlargement. #5. No clot in the left atrial appendage. #6. No evidence of PFO PLAN: . Continue antibiotic therapy. Probably patient may need lead extraction. May consider transferring patient to tertiary center.
[2021-07-19 08:51] LABS: Basophils # (A) 0.02 X 10*3/uL (0.00-0.10); Basophils % (A) 0.2 %; Eosinophils # (A) 0.17 X 10*3/uL (0.04-0.35); Eosinophils % (A) 1.7 %; HCT 36.4 % (37.2-46.3); HGB 11.5 g/dL (12.0-15.0); Immature Grans, Automated 0.4 %; Lymphocytes # (A) 1.08 X 10*3/uL (0.90-5.00); Lymphocytes % (A) 10.9 %; MCH 27.7 pg (27.0-32.0); MCHC 31.6 g/dL (32.0-37.0); MCV 87.7 fL (80.0-97.0); Mean Platelet Volume 12.6 fL (9.5-12.2); Monocytes # (A) 0.62 X 10*3/uL (0.20-1.00); Monocytes % (A) 6.2 %; NRBC Per 100 WBC 0 /100 WBCS (0.0-0.0); Neutrophils # (A) 8.01 X 10*3/uL (1.80-7.70); Neutrophils % (A) 80.6 %; Platelet Count 109 X 10*3/uL (140-440); RBC 4.15 X 10*6/uL (4.10-5.20); RDW 14.6 % (11.5-14.5); WBC 9.94 X 10*3/uL (4.50-10.00)
[2021-07-19] MEDS: APIXABAN 5 MG TAB PO SCH ×2 (09:14→20:29)
[2021-07-19] MEDS: FUROSEMIDE 40 MG TAB PO SCH (09:14)
[2021-07-19] MEDS: predniSONE 20 MG TAB PO SCH (09:14)
[2021-07-19] MEDS: EZETIMIBE 10 MG TAB PO SCH (09:14)
[2021-07-19] MEDS: PANTOPRAZOLE 40 MG TABLET PO SCH ×2 (09:14→17:57)
[2021-07-19] MEDS: PARoxetine 10 MG TAB PO SCH (09:14)
[2021-07-19] MEDS: LEVOTHYROXINE 88 MCG TAB PO SCH (09:14)
[2021-07-19] MEDS: carvediloL 3.125 MG TAB PO SCH ×2 (09:14→20:29)
[2021-07-19] MEDS: VANCOMYCIN 1,750 MG in SODIUM CHLORIDE 0.9% 500 ML 500 ML IVPB SCH ×2 (09:15→17:57)
[2021-07-19 09:43] LABS: African American GFR (CKD) 122.8 (60.0-200.0); Anion Gap 9.1 mmol/L (10.00-18.00); BUN/Creat Ratio 17.75 Ratio (12.00-20.00); Blood Urea Nitrogen 11.7 mg/dL (9.0-27.0); Calcium 8.1 mg/dL (8.7-10.3); Magnesium 1.7 mg/dL (1.5-2.4); Potassium 3.8 mmol/L (3.5-5.5)
[2021-07-19] MEDS: FUROSEMIDE 10 MG/ML 4 ML VIAL IV SCH (11:06)
[2021-07-19] MEDS: ALBUTEROL HFA INHALER INHALATION PRN (11:12)
[2021-07-19 12:02] LABS: Glucose,Whole Blood 209 mg/dL (75-99)
[2021-07-19] MEDS: SODIUM CHLORIDE 0.9% 1,000 ML IV SCH (13:33)
--- NOTE | 2021-07-19 13:33 | CDI ---
Documentation Clarification Form Date: 07/19/2021 12:57:00 PM From: Ines Restrepo Phone: Admit Date: 07/14/2021 03:45:00 PM Patient Name: Bernice Tran Visit Number: [id number] Discharge Date: ATTENTION: The Clinical Documentation Specialists (CDI) and [facility] Coding Staff appreciate your assistance in clarifying documentation. Please respond to the clarification below the line at the bottom and electronically sign. The CDI & [facility] Coding staff will review the response and follow-up if needed. Please note: Queries are made part of the Legal Health Record. If you have any questions, please contact the author of this message via ITS. Dr. Jacqueline Buchanan Conflicting documentation has been found in the medical record. As attending physician, please provide clarification. H&P on 07/14 notes recently discovered sarcoidosis with pulmonary infiltrates. Sarcoidosis versus Pneumonia Pulmonary note on 07/15 states case of sarcoidosis and is having sarcoid manifestation of lung disease of RML No evidence of Pneumonia. ID on 07/18 States patient with bacteremia likely secondary to pneumonia with increasing SOB and hypoxemia with evidence of RML pneumonia. Admission with staphylococcal septicemia, exact source not yet clear. History/Risk Factors: Sarcoidosis, Cardiomyopathy/ AICD, DM2, Pancreatitis, CHF. Clinical Indicators 07/14: VSS : T 99.9 HR 68 RR 16 BP 112/67 Labs: WBC 24.4 LA 2.6 CXR: Right lower lobe pneumonia which is slightly improved compared to last exam. No heart failure. CT chest Bilateral pulmonary infiltrates mainly in the RML and consistent with pneumonia Treatment: Prednisone ( 07/16-current) , IV Azithromycin ( 07/15-07/15) IV Vancomycin ( 07/17-current), IV Zosyn ( 07/14-07/19) O2 2L NC Please clarify which diagnosis is most appropriate: [ ] Pneumonia present and treated [x] Pneumonia ruled out [ ] Other (please specify) [ ] Unable to determine MTDD
--- NOTE | 2021-07-19 14:10 | P.PN ---
Subjective Progress Note Date: 07/19/21 Physical very pleasant 45-year-old female patient with a known history of previous admission for acute pancreatitis, atrial fibrillation, diabetes mellitus, GI bleeding, hypertension, hyperlipidemia, cardiomyopathy status post AICD placement, anxiety/depression. 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 She had undergone bronchoscopy with biopsies on 06/27/[address] Sow. She was found to have confluent nonnecrotizing granulomas and chronic inflammation. Negative for malignancy. The right middle lobe collapse. She is on an antibiotic and prednisone 50 mg daily. She presented to the emergency room again yesterday with complaints of abdominal discomfort that felt similar to her previous pancreatitis. She did develop anxiety with shortness of breath. She had another CT angiogram that revealed no evidence of pulmonary embolism. There is bilateral pulmonary atelectasis mainly in the right middle lobe consistent with postobstructive atelectasis however it is improved compared to previous. White count 14.5. Hemoglobin 13.2. Platelets 121. Sodium 136. Potassium 4.6. Bicarb 20. BUN 16. Creatinine 0.7. Initial lactic acid 2.8 currently 1.7. Initial blood cultures revealing Staphylococcus aureus. The patient was stating she had some edema and drainage from her right brachial IV site from her previous admission. She was just discharged home on 07/11/2021. She been initiated on vancomycin and azithromycin along with Zosyn. She received 500 mL of fluid resuscitation. She is seen today the patient on the regular medical. She is currently awake and alert in no acute distress. She denies any worsening shortness of breath. Occasional cough with some blood-tinged sputum. She is maintaining O2 saturation in the 90s on 2 L/m per nasal cannula. She's afebrile. Her lipase was 148 yesterday. Down to 132 today. ProBNP 5450. Echocardiogram from previous admission revealed moderately impaired left ventricular systolic function with ejection fraction of 35-40%. She is continued on oral diuretics. She is anticoagulated with Eliquis. On 07/16/2021 patient seen in follow-up on medical surgical floor. She is resting comfortably in bed, denies any acute distress, on 2 L of oxygen patient satting 93-94%. Vital signs have been stable, occasional cough, at times with production of small amount of blood-tinged phlegm. Patient remains on Eliquis. CT angiogram of the chest showed no evidence of pulmonary embolism. And bilateral pulmonary atelectasis, and right middle lobe postobstructive atelectasis, with improvement in aeration compared the last admission. No abdominal pain, no nausea or vomiting, patient remains on small dose of prednisone 20 mg daily, patient was found to be bacteremic, so far blood cu ltures from 07/14/2021 and 07/15/2021 were positive, with preliminary results suggesting presumptive MRSA, sputum culture is pending. Patient is on vancomycin for antibiotic coverage. Patient requested to be put back on BiPAP support at bedtime because she feels short of breath at nighttime. Patient continues on home dose oral Lasix. She feels like her abdomen is bloated, but denies any abdominal pain. Labs have been reviewed, white blood cell count is improved, and is down to 14.5, electrolytes and renal profile are unremarkable. Pro-calcitonin level of increased and is up to 0.64 on today's labs. On 07/17/2021 patient seen in follow-up on medical surgical floor. Follow blood culture from 07/16/2021 is persistently positive for gram-positive cocci in clusters, and blood culture from 07/14/2021 resulted and methicillin-resistant staph aureus. Patient remains on vancomycin for antibiotic coverage, IV service is following. Today's labs have been reviewed, white blood cell count is improved and is down to 10.9, hemoglobin of 11.9, sodium is 138, potassium is 3.8, chloride is 101, CO2 32, BUN is 12, creatinine 0.57. No fever. No chills, no chest pain, no worsening dyspnea, patient is tolerating ambulation about the room, occasional cough, at times with some blood-tinged sputum, small amount. Continues on Eliquis 5 mg twice daily. No nausea vomiting or diarrhea, lipase level is 132. No abdominal pain. Tolerating oral intake. 07/18/2021, seeing the patient in follow-up regarding her complicated septicemia. The patient has persistent bacteremia with MRSA and the patient remains on IV vancomycin. The most recent blood cultures from 07/17/2021, not to be positive for MRSA and I'm getting very highly suspicious that the patient may have an underlying endovascular infection, either infection of a pacemaker wires or infective endocarditis. The patient is afebrile. Hemodynamically stable. No worsening shortness of breath pH is pulmonary sarcoidosis. I kept on the 20 mg of prednisone her white cell count today's attempt 0.3 with a hemoglobin of 12.2. Rest of the blood work essentially within normal limits. BUN is at 11 with a creatinine of 0.7 and the sodium level is at 142. The patient's LFTs are adequate for now. The patient is afebrile. She is having some cold sores on her lips and the patient was started on Valtrex in that regard. The patient remains on the same medications including in the correlation with Eliquis 5 mg by mouth twice a day. She is also on Lasix 40 mg by mouth daily. She is using the BiPAP overnight at a pressure of 10/5 cm of water and the patient is using oxygen on 2 L per minute nasal cannula. On room air oxygen, the pulse ox is around 92%. 07/19 2021, the patient is being seen for a follow-up. She is feeling well as the patient has been diuresing well with Lasix. The patient meanwhile underwent a TEODORO and I discussed the findings with the bioinformatics computer scientist. The patient has possible vegetation on a pacemaker lead with +3 mitral regurgitation and impairment of the LV function. There is a mobile lesion noted in the atrial lead suggestive of vegetation. There is also severe global LV dysfunction no evidence of PFO and there is no evidence of any clot in the left atrial appendage. The patient remains on vancomycin. The plan is to transfer this patient to [facility] for lead extraction. The patient is a white cell count is at 9.9 with a hemoglobin of 11. COVID 19 testing was negative. She is in good spirits. She is doing well. No magistral distress. She is on room air oxygen. Objective - Vital Signs Vital signs: Vital Signs Temp 97.8 F 07/19/21 08:45 Pulse 71 07/19/21 11:44 Resp 18 07/19/21 08:45 BP 133/91 07/19/21 11:44 Pulse Ox 93 L 07/19/21 11:44 FiO2 30 07/19/21 03:44 Intake & Output 07/18/21 07/19/21 07/19/21 18:59 06:59 18:59 Intake Total 598 0 200 Balance 598 0 200 Intake: IV 200 Oral 598 0 Other: Voiding Method Toilet # Voids 6 1 # Bowel Movements 5 - Exam GENERAL EXAM: Alert, very pleasant, 45-year-old white female on 2 L of oxygen a pulse ox of 93% comfortable in no apparent distress. HEAD: Normocephalic/atraumatic. EYES: Normal reaction of pupils, equal size. Conjunctiva pink, sclera white. NOSE: Clear with pink turbinates. THROAT: No erythema or exudates. NECK: No masses, no JVD, no thyroid enlargement, no adenopathy. CHEST: No chest wall deformity. Symmetrical expansion. LUNGS: Equal air entry with no crackles, wheeze, rhonchi or dullness. CVS: Regular rate and rhythm, normal S1 and S2, no gallops, no murmurs, no rubs ABDOMEN: Soft, distended but nontender, but soft No hepatosplenomegaly, normal bowel sounds, no guarding or rigidity. EXTREMITIES: No clubbing, no edema, no cyanosis, 2+ pulses and upper and lower extremities. MUSCULOSKELETAL: Muscle strength and tone normal. SPINE: No scoliosis or deformity SKIN: No rashes CENTRAL NERVOUS SYSTEM: Alert and oriented -3. No focal deficits, tone is normal in all 4 extremities. PSYCHIATRIC: Alert and oriented -3. Appropriate affect. Intact judgment and insight. - Labs CBC & Chem 7: 07/19/21 06:11 07/19/21 06:11 Labs: Abnormal Lab Results - Last 24 Hours (Table) 07/18/21 07/18/21 07/19/21 Range/Units 17:29 20:01 06:11 Hgb (12.0-15.0) g/dL Hct (37.2-46.3) % MCHC (32.0-37.0) g/dL RDW (11.5-14.5) % Plt Count (140-440) X 10*3/uL MPV (9.5-12.2) fL Neutrophils # (1.80-7.70) X 10*3/uL Anion Gap 9.10 L (10.00-18.00) mmol/L Glucose 126 H (70-110) mg/dL POC Glucose (mg/dL) 236 H 115 H (75-99) mg/dL Calcium 8.1 L (8.7-10.3) mg/dL 07/19/21 07/19/21 07/19/21 Range/Units 06:11 06:51 12:00 Hgb 11.5 L (12.0-15.0) g/dL Hct 36.4 L (37.2-46.3) % MCHC 31.6 L (32.0-37.0) g/dL RDW 14.6 H (11.5-14.5) % Plt Count 109 L (140-440) X 10*3/uL MPV 12.6 H (9.5-12.2) fL Neutrophils # 8.01 H (1.80-7.70) X 10*3/uL Anion Gap (10.00-18.00) mmol/L Glucose (70-110) mg/dL POC Glucose (mg/dL) 118 H 209 H (75-99) mg/dL Calcium (8.7-10.3) mg/dL Microbiology - Last 24 Hours (Table) 07/16/21 08:03 Blood Culture Gram Stain - Final Blood Blood Culture - Final Methicillin resist S. aureus 07/17/21 07:19 Blood Culture Gram Stain - Preliminary Blood Blood Culture - Preliminary Presumptive MRSA 07/17/21 14:18 Blood Culture Gram Stain - Preliminary Blood Blood Culture - Preliminary Presumptive MRSA 07/17/21 14:19 Blood Culture Gram Stain - Preliminary Blood Blood Culture - Preliminary Presumptive MRSA 07/18/21 06:44 Blood Culture Gram Stain - Preliminary Blood 07/18/21 06:44 Blood Culture - Final Blood 07/10/21 08:03 Blood Culture Gram Stain - Final Blood Blood Culture - Final 07/17/21 14:18 Blood Culture - Final Blood 07/15/21 14:35 Blood Culture Gram Stain - Final Blood Blood Culture - Final Methicillin resist S. aureus 07/17/21 14:19 Blood Culture - Final Blood Assessment and Plan Plan: #1. MRSA sepsis with persistent bacteremia, currently on vancomycin. Most recent blood culture from 06/17/2019 was positive. And has vegetation on the pacemaker lead and she may need to go to [facility] for lead extraction. She will need IV antibiotics for next 10. Time. Despite all this, she is hemodynamically stable at this point in time. She has global hypokinesis with global LV dysfunction and mitral regurgitation. Please refer to the results of the TEODORO. #2. 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 The patient cur rently is on prednisone 20 mg by mouth daily #3. Recent hospitalization for acute pancreatitis that was thought to be drug induced, improved #4. 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 Recent hospitalization for acute pneumonia, difficulty breathing, right lung collapse, and acute hypoxic respiratory failure, status post bronchoscopy #6. Chronic A. fib on Eliquis on outpatient basis and this medication has been resumed for now #7. Diabetes mellitus type 2 #8. Hypertension #9. Hyperlipidemia #10. Previous history of myocardial infarction #11. Sleep apnea #12. 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 Multiple sclerosis #15. Permanent pacemaker implantation and AICD placement #16. ADD/ADHD #17. Anxiety and depression #18. History of cardiac sarcoidosis and secondary cardiomyopathy, most recent echocardiogram reveals impaired left ventricular systolic function with ejection fraction 35-40% #19. History of cardiac arrhythmias related to cardiac sarcoidosis and had undergone previous cardiac MRI and the patient has sinus syndrome and dual- chamber pacemaker/AICD placed #20, cold sores and the patient is currently on Valtrex Plan: Follow-up blood cultures Continued IV vancomycin TEODORO results were noted Repeat another set of blood cultures in a.m. Continue prednisone at 20 mg daily Continue BiPAP support at night and as needed with pressures of 10 of 5 and FiO2 of 30% Blood cultures remain persistently positive patient will likely need a transesophageal echocardiogram Continue current medical treatment Transfer the patient to [facility] for lead extraction and treatment of infected pacemaker leads.
[2021-07-19] MEDS ORDERED: VANCOMYCIN TROUGH DUE 1 EACH MISC MISCELLANE ONE (16:00)
--- NOTE | 2021-07-19 16:33 | P.PN ---
Subjective Progress Note Date: 07/19/21 Pt underwent TEODORO tody which showed infected ICD lead in the atria with mobile vegetation. Spoke with [facility] who accepted patient for transfer. Spoke with [facility] who accepted patient for transfer. Pending bed availability. Gen: awake, alert HEENT: normocephalic, atraumatic, good hearing acuity, moist mucous membranes Resp: good air exchange, breathing comfortably with no accessory muscle use CVS: good distal perfusion x 4, GI: soft, NTTP, ND : no SPT, no CVAT, reyes catheter not present MSK: no pitting edema, no clubbing Neuro: non-focal, moving all extremities Psych: cooperative, euthymic mood Assessment/plan: MRSA bacteremia overall continue IV antibiotics as per infectious disease Repeat blood cultures daily til clearance Patient started on vancomycin Initially was on azithromycin and Zosyn that are now discontinued We'll check echocardiogram, TEODORO Infection disease consulted Sarcoidosis with pulmonary, cardiac involvement Stable, continue home dose of prednisone Pulmonary medicine following Chronic CHF with EF 35-50% status post AICD placement Continue Coreg, continue Lasix Not on AZEB inhibitor Morbid obeisty with BM 43.6 and obstructive sleep apnea Recommend structured outpatient weight loss. Continue CPAP Anxiety and depression Continue Paxil Patient is requesting for Xanax as needed, discussed that in the long run she will benefit from psychiatric rest follow-up and careful titration of regimen for her anxiety and depression Recent pancreatitis Reported abdominal discomfort with fluid Check lipase, advance diet slowly as tolerated Atrial fibrillation Continue Coreg and Eliquis Insomnia Continue melatonin DM 2 with hyperglycemia Hold oral hypoglycemic Hemoglobin is 7.3 Continues on sliding scale Dyslipidemia Cont fenofibrate, zetia Hypothyroidism Cont levothyroxine CODE STATUS: Full code DVT prophylaxis: Lovenox Dispo Plan: Pending hospital course, likely back to home to be determined Objective - Vital Signs Vital signs: Vital Signs Temp 98.2 F 07/19/21 14:10 Pulse 70 07/19/21 14:10 Resp 18 07/19/21 14:10 BP 139/84 07/19/21 14:10 Pulse Ox 94 L 07/19/21 14:10 FiO2 30 07/19/21 03:44 Intake & Output 07/18/21 07/19/21 07/19/21 18:59 06:59 18:59 Intake Total 598 0 680 Balance 598 0 680 Intake: IV 200 Oral 598 0 480 Other: Voiding Method Toilet # Voids 6 1 # Bowel Movements 5 - Labs CBC & Chem 7: 07/19/21 06:11 07/19/21 06:11 Labs: Abnormal Lab Results - Last 24 Hours (Table) 07/18/21 07/18/21 07/19/21 Range/Units 17:29 20:01 06:11 Hgb (12.0-15.0) g/dL Hct (37.2-46.3) % MCHC (32.0-37.0) g/dL RDW (11.5-14.5) % Plt Count (140-440) X 10*3/uL MPV (9.5-12.2) fL Neutrophils # (1.80-7.70) X 10*3/uL Anion Gap 9.10 L (10.00-18.00) mmol/L Glucose 126 H (70-110) mg/dL POC Glucose (mg/dL) 236 H 115 H (75-99) mg/dL Calcium 8.1 L (8.7-10.3) mg/dL 07/19/21 07/19/21 07/19/21 Range/Units 06:11 06:51 12:00 Hgb 11.5 L (12.0-15.0) g/dL Hct 36.4 L (37.2-46.3) % MCHC 31.6 L (32.0-37.0) g/dL RDW 14.6 H (11.5-14.5) % Plt Count 109 L (140-440) X 10*3/uL MPV 12.6 H (9.5-12.2) fL Neutrophils # 8.01 H (1.80-7.70) X 10*3/uL Anion Gap (10.00-18.00) mmol/L Glucose (70-110) mg/dL POC Glucose (mg/dL) 118 H 209 H (75-99) mg/dL Calcium (8.7-10.3) mg/dL Microbiology - Last 24 Hours (Table) 07/16/21 08:03 Blood Culture Gram Stain - Final Blood Blood Culture - Final Methicillin resist S. aureus 07/17/21 07:19 Blood Culture Gram Stain - Preliminary Blood Blood Culture - Preliminary Presumptive MRSA 07/17/21 14:18 Blood Culture Gram Stain - Preliminary Blood Blood Culture - Preliminary Presumptive MRSA 07/17/21 14:19 Blood Culture Gram Stain - Preliminary Blood Blood Culture - Preliminary Presumptive MRSA 07/18/21 06:44 Blood Culture Gram Stain - Preliminary Blood 07/18/21 06:44 Blood Culture - Final Blood 07/10/21 08:03 Blood Culture Gram Stain - Final Blood Blood Culture - Final 07/17/21 14:18 Blood Culture - Final Blood
[2021-07-19 17:05] LABS: Glucose,Whole Blood 212 mg/dL (75-99)
[2021-07-19 20:16] LABS: Glucose,Whole Blood 195 mg/dL (75-99)
[2021-07-19] MEDS: LATANOPROST 0.005% OPHTH DROPS 2.5 ML BTL RIGHT EYE SCH (20:30)
--- NOTE | 2021-07-19 22:29 | P.PN ---
Subjective Progress Note Date: 07/18/21 Principal diagnosis: MRSA bacteremia Patient is a 45-year-old female with a past medical history significant for diabetes mellitus hypertension hyperlipidemia cardiomyopathy status post AICD placement acute pancreatitis anxiety depression patient recently underwent on bronchoscopy with a biopsy by Dr. Sow on 06/27/2021 and was noticed to have a nonnecrotizing granulomatous and chronic inflammation negative for malignancy, subsequently presented to hospital with the lateral chest pain shortness of breath and cough did have a fever and evidence of MRSA bacteremia. On today's evaluation that is 07/18/2021, patient continues to be afebrile, patient is breathing comfortably and the patient left-sided chest pain has slightly decreased intensity, the patient continued have a cough but less productive now, denies any nausea no vomiting no abdominal pain or diarrhea Objective - Vital Signs Vital signs: Vital Signs Temp 98.3 F 07/18/21 07:46 Pulse 69 07/18/21 07:46 Resp 16 07/18/21 07:46 BP 150/90 07/18/21 07:46 Pulse Ox 92 L 07/18/21 07:46 FiO2 30 07/18/21 03:49 Intake & Output 07/17/21 07/18/21 07/18/21 18:59 06:59 18:59 Intake Total 240 Output Total 0 Balance 0 240 Intake: Oral 240 Output: Emesis 0 Other: Voiding Method Toilet # Voids 1 2 - Exam GENERAL DESCRIPTION: Middle-age female lying in bed in no distress RESPIRATORY SYSTEM: Unlabored breathing , decreased breath sounds at bases HEART: S1 S2 regular rate and rhythm , ABDOMEN: Soft , no tenderness EXTREMITIES: No edema feet - Labs CBC & Chem 7: 07/19/21 06:11 07/19/21 06:11 Labs: Abnormal Lab Results - Last 24 Hours (Table) 07/17/21 07/17/21 07/18/21 Range/Units 17:31 21:08 06:44 WBC (4.50-10.00) X 10*3/uL MCHC (32.0-37.0) g/dL Plt Count (140-440) X 10*3/uL MPV (9.5-12.2) fL Neutrophils # (1.80-7.70) X 10*3/uL Potassium 3.4 L (3.5-5.5) mmol/L Carbon Dioxide 30.1 H (20.0-27.5) mmol/L Anion Gap 9.90 L (10.00-18.00) mmol/L POC Glucose (mg/dL) 259 H 256 H (75-99) mg/dL Calcium 8.4 L (8.7-10.3) mg/dL ALT 48 H (8-44) U/L Total Protein 5.9 L (6.2-8.2) g/dL Albumin 3.2 L (3.8-4.9) g/dL Albumin/Globulin Ratio 1.19 L (1.60-3.17) g/dL 07/18/21 07/18/21 07/18/21 Range/Units 06:44 07:13 11:52 WBC 10.36 H (4.50-10.00) X 10*3/uL MCHC 31.4 L (32.0-37.0) g/dL Plt Count 111 L (140-440) X 10*3/uL MPV 13.0 H (9.5-12.2) fL Neutrophils # 8.63 H (1.80-7.70) X 10*3/uL Potassium (3.5-5.5) mmol/L Carbon Dioxide (20.0-27.5) mmol/L Anion Gap (10.00-18.00) mmol/L POC Glucose (mg/dL) 100 H 194 H (75-99) mg/dL Calcium (8.7-10.3) mg/dL ALT (8-44) U/L Total Protein (6.2-8.2) g/dL Albumin (3.8-4.9) g/dL Albumin/Globulin Ratio (1.60-3.17) g/dL Microbiology - Last 24 Hours (Table) 07/17/21 14:19 Blood Culture Gram Stain - Preliminary Blood 07/15/21 14:35 Blood Culture Gram Stain - Final Blood Blood Culture - Final Methicillin resist S. aureus 07/17/21 14:19 Blood Culture - Final Blood 07/17/21 07:19 Blood Culture Gram Stain - Preliminary Blood 07/15/21 20:08 Gram Stain - Final Sputum Sputum Culture - Final 07/10/21 08:03 Blood Culture Gram Stain - Preliminary Blood 07/17/21 07:19 Blood Culture - Final Blood 07/14/21 16:30 Blood Culture Gram Stain - Final Blood Blood Culture - Final Methicillin resist S. aureus Assessment and Plan (1) Pneumonia Current Visit: Yes Status: Acute Code(s): J18.9 - PNEUMONIA, UNSPECIFIED ORGANISM SNOMED Code(s): 347646335 Plan: 1patient with MRSA bacteremia more likely secondary to the pneumonia in this patient presented to hospital with increasing shortness of breath hypoxemia with evidence of right middle lobe pneumonia, currently with no other obvious focus for this bacteremia in this patient with no skin lesion or joint swelling and abdominal was soft on clinical examination. 2 patient did have persistent bacteremia concerning for possible endovascular source cardiology to do TEODORO tomorrow 3patient to continue with vancomycin pharmacy to dose target trough of 15 while watching kidney function closely. Time with Patient: Less than 30
--- NOTE | 2021-07-19 22:31 | P.PN ---
Subjective Progress Note Date: 07/19/21 Principal diagnosis: MRSA bacteremia Patient is a 45-year-old female with a past medical history significant for diabetes mellitus hypertension hyperlipidemia cardiomyopathy status post AICD placement acute pancreatitis anxiety depression patient recently underwent on bronchoscopy with a biopsy by Dr. Sow on 06/27/2021 and was noticed to have a nonnecrotizing granulomatous and chronic inflammation negative for malignancy, subsequently presented to hospital with the lateral chest pain shortness of breath and cough did have a fever and evidence of MRSA bacteremia. Patient did have persistent bacteremia for which the patient did have a TEODORO completed 07/20/2019 was suggestive of vegetation on the AICD lead On today's evaluation that is 07/19/2021, patient denies any fever or chills, patient is breathing comfortably currently on room air, the patient cough has decreased in intensity and is productive now, the patient denies any nausea no vomiting no abdominal pain or diarrhea Objective - Vital Signs Vital signs: Vital Signs Temp 97.8 F 07/19/21 08:45 Pulse 69 07/19/21 10:30 Resp 18 07/19/21 08:45 BP 136/87 07/19/21 10:30 Pulse Ox 96 07/19/21 10:30 FiO2 30 07/19/21 03:44 Intake & Output 07/18/21 07/19/21 07/19/21 18:59 06:59 18:59 Intake Total 598 0 200 Balance 598 0 200 Intake: IV 200 Oral 598 0 Other: Voiding Method Toilet # Voids 6 1 # Bowel Movements 5 - Exam GENERAL DESCRIPTION: Middle-age female lying in bed in no distress RESPIRATORY SYSTEM: Unlabored breathing , decreased breath sounds at bases HEART: S1 S2 regular rate and rhythm , ABDOMEN: Soft , no tenderness EXTREMITIES: No edema feet - Labs CBC & Chem 7: 07/19/21 06:11 07/19/21 06:11 Labs: Abnormal Lab Results - Last 24 Hours (Table) 07/18/21 07/18/21 07/18/21 Range/Units 11:52 17:29 20:01 Hgb (12.0-15.0) g/dL Hct (37.2-46.3) % MCHC (32.0-37.0) g/dL RDW (11.5-14.5) % Plt Count (140-440) X 10*3/uL MPV (9.5-12.2) fL Neutrophils # (1.80-7.70) X 10*3/uL Anion Gap (10.00-18.00) mmol/L Glucose (70-110) mg/dL POC Glucose (mg/dL) 194 H 236 H 115 H (75-99) mg/dL Calcium (8.7-10.3) mg/dL 07/19/21 07/19/21 07/19/21 Range/Units 06:11 06:11 06:51 Hgb 11.5 L (12.0-15.0) g/dL Hct 36.4 L (37.2-46.3) % MCHC 31.6 L (32.0-37.0) g/dL RDW 14.6 H (11.5-14.5) % Plt Count 109 L (140-440) X 10*3/uL MPV 12.6 H (9.5-12.2) fL Neutrophils # 8.01 H (1.80-7.70) X 10*3/uL Anion Gap 9.10 L (10.00-18.00) mmol/L Glucose 126 H (70-110) mg/dL POC Glucose (mg/dL) 118 H (75-99) mg/dL Calcium 8.1 L (8.7-10.3) mg/dL Microbiology - Last 24 Hours (Table) 07/18/21 06:44 Blood Culture Gram Stain - Preliminary Blood 07/18/21 06:44 Blood Culture - Final Blood 07/17/21 14:19 Blood Culture Gram Stain - Preliminary Blood Blood Culture - Preliminary Staphylococcus aureus 07/10/21 08:03 Blood Culture Gram Stain - Final Blood Blood Culture - Final 07/17/21 14:18 Blood Culture Gram Stain - Preliminary Blood 07/16/21 08:03 Blood Culture Gram Stain - Preliminary Blood Blood Culture - Preliminary Presumptive MRSA 07/17/21 14:18 Blood Culture - Final Blood 07/15/21 14:35 Blood Culture Gram Stain - Final Blood Blood Culture - Final Methicillin resist S. aureus 07/17/21 14:19 Blood Culture - Final Blood 07/17/21 07:19 Blood Culture Gram Stain - Preliminary Blood 07/15/21 20:08 Gram Stain - Final Sputum Sputum Culture - Final 07/17/21 07:19 Blood Culture - Final Blood Assessment and Plan (1) Pneumonia Current Visit: Yes Status: Acute Code(s): J18.9 - PNEUMONIA, UNSPECIFIED ORGANISM SNOMED Code(s): 723735336 Plan: 1patient with MRSA bacteremia more likely secondary to the pneumonia in this patient presented to hospital with increasing shortness of breath hypoxemia with evidence of right middle lobe pneumonia, currently with no other obvious focus for this bacteremia in this patient with no skin lesion or joint swelling and abdominal was soft on clinical examination. 2 patient did have persistent bacteremia concerning for possible endovascular source patient did have TEODORO suggestive of vegetation on the AICD lead 3patient to continue with vancomycin pharmacy to dose and possible transfer to tertiary care per cardiology recommendation Time with Patient: Less than 30
[2021-07-20] MEDS: VANCOMYCIN 1,750 MG in SODIUM CHLORIDE 0.9% 500 ML 500 ML IVPB SCH ×3 (01:08→17:44)
[2021-07-20 07:33] LABS: Glucose,Whole Blood 101 mg/dL (75-99)
[2021-07-20] MEDS: ALBUTEROL HFA INHALER INHALATION PRN (07:49)
[2021-07-20] MEDS: INSULIN ASPART (NovoLOG) 100 UNIT/ML VIAL SQ SCH ×4 (08:36→20:40)
[2021-07-20] MEDS: APIXABAN 5 MG TAB PO SCH ×2 (08:37→20:39)
[2021-07-20] MEDS: predniSONE 20 MG TAB PO SCH (08:37)
[2021-07-20] MEDS: FUROSEMIDE 10 MG/ML 4 ML VIAL IV SCH (08:37)
[2021-07-20] MEDS: LEVOTHYROXINE 88 MCG TAB PO SCH (08:37)
[2021-07-20] MEDS: EZETIMIBE 10 MG TAB PO SCH (08:37)
[2021-07-20] MEDS: carvediloL 3.125 MG TAB PO SCH ×2 (08:38→20:39)
[2021-07-20] MEDS: PANTOPRAZOLE 40 MG TABLET PO SCH ×2 (08:38→17:44)
[2021-07-20] MEDS: PARoxetine 10 MG TAB PO SCH (08:38)
[2021-07-20] MEDS: SODIUM CHLORIDE 0.9% 1,000 ML IV SCH (08:39)
[2021-07-20 10:01] VITALS: BMI 43.5
--- NOTE | 2021-07-20 10:54 | P.PN ---
Subjective Progress Note Date: 07/20/21 Pt underwent TEODORO yesterday which showed infected ICD lead in the atria with mobile vegetation. Spoke with [facility] who accepted patient for transfer. Spoke with [facility] who accepted patient for transfer. Pending bed availability. Gen: awake, alert HEENT: normocephalic, atraumatic, good hearing acuity, moist mucous membranes Resp: good air exchange, breathing comfortably with no accessory muscle use CVS: good distal perfusion x 4, GI: soft, NTTP, ND : no SPT, no CVAT, reyes catheter not present MSK: no pitting edema, no clubbing Neuro: non-focal, moving all extremities Psych: cooperative, euthymic mood Assessment/plan: MRSA bacteremia overall continue IV antibiotics as per infectious disease Repeat blood cultures daily til clearance Patient started on vancomycin Initially was on azithromycin and Zosyn that are now discontinued We'll check echocardiogram, TEODORO Infection disease consulted Sarcoidosis with pulmonary, cardiac involvement Stable, continue home dose of prednisone Pulmonary medicine following Chronic CHF with EF 35-50% status post AICD placement Continue Coreg, continue Lasix Not on AZEB inhibitor Morbid obeisty with BM 43.6 and obstructive sleep apnea Recommend structured outpatient weight loss. Continue CPAP Anxiety and depression Continue Paxil Patient is requesting for Xanax as needed, discussed that in the long run she will benefit from psychiatric rest follow-up and careful titration of regimen for her anxiety and depression Recent pancreatitis Reported abdominal discomfort with fluid Check lipase, advance diet slowly as tolerated Atrial fibrillation Continue Coreg and Eliquis Insomnia Continue melatonin DM 2 with hyperglycemia Hold oral hypoglycemic Hemoglobin is 7.3 Continues on sliding scale Dyslipidemia Cont fenofibrate, zetia Hypothyroidism Cont levothyroxine CODE STATUS: Full code DVT prophylaxis: Lovenox Dispo Plan: Pending hospital course, likely back to home to be determined Objective - Vital Signs Vital signs: Vital Signs Temp 98.4 F 07/20/21 08:06 Pulse 69 07/20/21 08:06 Resp 17 07/20/21 08:06 BP 125/86 07/20/21 08:06 Pulse Ox 95 07/20/21 08:06 FiO2 30 07/20/21 02:33 Intake & Output 07/19/21 07/20/21 07/20/21 18:59 06:59 18:59 Intake Total 680 Balance 680 Weight 122.47 kg Intake: IV 200 Oral 480 Other: Voiding Method Toilet # Voids 2 2 - Labs CBC & Chem 7: 07/19/21 06:11 07/19/21 06:11 Labs: Abnormal Lab Results - Last 24 Hours (Table) 07/19/21 07/19/21 07/19/21 Range/Units 12:00 17:04 20:14 POC Glucose (mg/dL) 209 H 212 H 195 H (75-99) mg/dL 07/20/21 Range/Units 07:32 POC Glucose (mg/dL) 101 H (75-99) mg/dL Microbiology - Last 24 Hours (Table) 07/18/21 06:44 Blood Culture Gram Stain - Preliminary Blood Blood Culture - Preliminary Presumptive MRSA 07/19/21 06:11 Blood Culture - Final Blood 07/16/21 08:03 Blood Culture Gram Stain - Final Blood Blood Culture - Final Methicillin resist S. aureus 07/17/21 07:19 Blood Culture Gram Stain - Preliminary Blood Blood Culture - Preliminary Presumptive MRSA 07/17/21 14:18 Blood Culture Gram Stain - Preliminary Blood Blood Culture - Preliminary Presumptive MRSA 07/17/21 14:19 Blood Culture Gram Stain - Preliminary Blood Blood Culture - Preliminary Presumptive MRSA
--- NOTE | 2021-07-20 11:20 | CA ---
Transesophageal Echo Report Bernice Tran Age: 45 Gender: F : 1975 Exam Date: 07/19/2021 07:40 Exam Location: [facility] Ht (in): Wt (lb): Ordering Physician: Referring Physician: Channing Tafoya MD Technologist: Crystal Soto RDCS Fellow: Procedure CPT: Indications: bacteremia ICD-9 Codes: Technical Quality: MEASUREMENTS (Male / Female) Normal Values Contrast Medications Complications Proc. Components FINDINGS Left Ventricle Right Ventricle Right Atrium Left Atrium LA Appendage IA Septum Mitral Valve Aortic Valve Tricuspid Valve Pulmonic Valve Pericardium Aorta CONCLUSIONS Previewed by: Dr. Erasto Hinojosa MD (Electronically Signed) Final Date: 20 July 2021 11:19
[2021-07-20 11:40] LABS: African American GFR (CKD) 126.7 (60.0-200.0); Anion Gap 8.5 mmol/L (10.00-18.00); BUN/Creat Ratio 14.33 Ratio (12.00-20.00); Blood Urea Nitrogen 8.6 mg/dL (9.0-27.0); Calcium 8.6 mg/dL (8.7-10.3); Carbon Dioxide 33.5 mmol/L (20.0-27.5); Magnesium 1.9 mg/dL (1.5-2.4); Non-African American GFR(CKD) 109.3 (60.0-200.0); Potassium 3.4 mmol/L (3.5-5.5)
[2021-07-20 11:57] LABS: Basophils # (A) 0.03 X 10*3/uL (0.00-0.10); Basophils % (A) 0.3 %; Eosinophils # (A) 0.14 X 10*3/uL (0.04-0.35); Eosinophils % (A) 1.6 %; HCT 39.7 % (37.2-46.3); HGB 12.6 g/dL (12.0-15.0); Immature Grans, Automated 0.5 %; Lymphocytes # (A) 1.09 X 10*3/uL (0.90-5.00); Lymphocytes % (A) 12.7 %; MCH 27.8 pg (27.0-32.0); MCHC 31.7 g/dL (32.0-37.0); MCV 87.4 fL (80.0-97.0); Mean Platelet Volume 12.1 fL (9.5-12.2); Monocytes # (A) 0.45 X 10*3/uL (0.20-1.00); Monocytes % (A) 5.2 %; NRBC Per 100 WBC 0 /100 WBCS (0.0-0.0); Neutrophils # (A) 6.85 X 10*3/uL (1.80-7.70); Neutrophils % (A) 79.7 %; Platelet Count 143 X 10*3/uL (140-440); RBC 4.54 X 10*6/uL (4.10-5.20); RDW 14.5 % (11.5-14.5)
[2021-07-20 12:03] LABS: Glucose,Whole Blood 173 mg/dL (75-99)
[2021-07-20] MEDS ORDERED: IOPAMIDOL-370 50ML BTL INJ ONE (12:29)
--- NOTE | 2021-07-20 12:41 | P.PN ---
Subjective Progress Note Date: 07/20/21 Physical very pleasant 45-year-old female patient with a known history of previous admission for acute pancreatitis, atrial fibrillation, diabetes mellitus, GI bleeding, hypertension, hyperlipidemia, cardiomyopathy status post AICD placement, anxiety/depression. 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 She had undergone bronchoscopy with biopsies on 06/27/[address] Sow. She was found to have confluent nonnecrotizing granulomas and chronic inflammation. Negative for malignancy. The right middle lobe collapse. She is on an antibiotic and prednisone 50 mg daily. She presented to the emergency room again yesterday with complaints of abdominal discomfort that felt similar to her previous pancreatitis. She did develop anxiety with shortness of breath. She had another CT angiogram that revealed no evidence of pulmonary embolism. There is bilateral pulmonary atelectasis mainly in the right middle lobe consistent with postobstructive atelectasis however it is improved compared to previous. White count 14.5. Hemoglobin 13.2. Platelets 121. Sodium 136. Potassium 4.6. Bicarb 20. BUN 16. Creatinine 0.7. Initial lactic acid 2.8 currently 1.7. Initial blood cultures revealing Staphylococcus aureus. The patient was stating she had some edema and drainage from her right brachial IV site from her previous admission. She was just discharged home on 07/11/2021. She been initiated on vancomycin and azithromycin along with Zosyn. She received 500 mL of fluid resuscitation. She is seen today the patient on the regular medical. She is currently awake and alert in no acute distress. She denies any worsening shortness of breath. Occasional cough with some blood-tinged sputum. She is maintaining O2 saturation in the 90s on 2 L/m per nasal cannula. She's afebrile. Her lipase was 148 yesterday. Down to 132 today. ProBNP 5450. Echocardiogram from previous admission revealed moderately impaired left ventricular systolic function with ejection fraction of 35-40%. She is continued on oral diuretics. She is anticoagulated with Eliquis. On 07/16/2021 patient seen in follow-up on medical surgical floor. She is resting comfortably in bed, denies any acute distress, on 2 L of oxygen patient satting 93-94%. Vital signs have been stable, occasional cough, at times with production of small amount of blood-tinged phlegm. Patient remains on Eliquis. CT angiogram of the chest showed no evidence of pulmonary embolism. And bilateral pulmonary atelectasis, and right middle lobe postobstructive atelectasis, with improvement in aeration compared the last admission. No abdominal pain, no nausea or vomiting, patient remains on small dose of prednisone 20 mg daily, patient was found to be bacteremic, so far blood cu ltures from 07/14/2021 and 07/15/2021 were positive, with preliminary results suggesting presumptive MRSA, sputum culture is pending. Patient is on vancomycin for antibiotic coverage. Patient requested to be put back on BiPAP support at bedtime because she feels short of breath at nighttime. Patient continues on home dose oral Lasix. She feels like her abdomen is bloated, but denies any abdominal pain. Labs have been reviewed, white blood cell count is improved, and is down to 14.5, electrolytes and renal profile are unremarkable. Pro-calcitonin level of increased and is up to 0.64 on today's labs. On 07/17/2021 patient seen in follow-up on medical surgical floor. Follow blood culture from 07/16/2021 is persistently positive for gram-positive cocci in clusters, and blood culture from 07/14/2021 resulted and methicillin-resistant staph aureus. Patient remains on vancomycin for antibiotic coverage, IV service is following. Today's labs have been reviewed, white blood cell count is improved and is down to 10.9, hemoglobin of 11.9, sodium is 138, potassium is 3.8, chloride is 101, CO2 32, BUN is 12, creatinine 0.57. No fever. No chills, no chest pain, no worsening dyspnea, patient is tolerating ambulation about the room, occasional cough, at times with some blood-tinged sputum, small amount. Continues on Eliquis 5 mg twice daily. No nausea vomiting or diarrhea, lipase level is 132. No abdominal pain. Tolerating oral intake. 07/18/2021, seeing the patient in follow-up regarding her complicated septicemia. The patient has persistent bacteremia with MRSA and the patient remains on IV vancomycin. The most recent blood cultures from 07/17/2021, not to be positive for MRSA and I'm getting very highly suspicious that the patient may have an underlying endovascular infection, either infection of a pacemaker wires or infective endocarditis. The patient is afebrile. Hemodynamically stable. No worsening shortness of breath pH is pulmonary sarcoidosis. I kept on the 20 mg of prednisone her white cell count today's attempt 0.3 with a hemoglobin of 12.2. Rest of the blood work essentially within normal limits. BUN is at 11 with a creatinine of 0.7 and the sodium level is at 142. The patient's LFTs are adequate for now. The patient is afebrile. She is having some cold sores on her lips and the patient was started on Valtrex in that regard. The patient remains on the same medications including in the correlation with Eliquis 5 mg by mouth twice a day. She is also on Lasix 40 mg by mouth daily. She is using the BiPAP overnight at a pressure of 10/5 cm of water and the patient is using oxygen on 2 L per minute nasal cannula. On room air oxygen, the pulse ox is around 92%. 07/19 2021, the patient is being seen for a follow-up. She is feeling well as the patient has been diuresing well with Lasix. The patient meanwhile underwent a TEODORO and I discussed the findings with the leasing professional. The patient has possible vegetation on a pacemaker lead with +3 mitral regurgitation and impairment of the LV function. There is a mobile lesion noted in the atrial lead suggestive of vegetation. There is also severe global LV dysfunction no evidence of PFO and there is no evidence of any clot in the left atrial appendage. The patient remains on vancomycin. The plan is to transfer this patient to [facility] for lead extraction. The patient is a white cell count is at 9.9 with a hemoglobin of 11. COVID 19 testing was negative. She is in good spirits. She is doing well. No magistral distress. She is on room air oxygen. 07/20/2021, the patient has no complaints. The patient diurese well with IV Lasix and the patient's status is improved. She remains on room air oxygen. Nevertheless, the patient remains bacteremic and the blood cultures positive for MRSA and the patient remains on IV vancomycin. The patient was seen by electrophysiology, Dr. Grayson and she is being considered for lead extraction within next 24-48 hours. Using the BiPAP overnight. No altered mentation. No respiratory difficulties. White cell count at 8.6 with a hemoglobin of 12.6. Electrolytes are normal. Sodium is at 142. Objective - Vital Signs Vital signs: Vital Signs Temp 98.4 F 07/20/21 08:06 Pulse 69 07/20/21 08:06 Resp 17 07/20/21 08:06 BP 125/86 07/20/21 08:06 Pulse Ox 95 07/20/21 08:06 FiO2 30 07/20/21 02:33 Intake & Output 07/19/21 07/20/21 07/20/21 18:59 06:59 18:59 Intake Total 680 Balance 680 Weight 122.47 kg Intake: IV 200 Oral 480 Other: Voiding Method Toilet # Voids 2 2 - Exam GENERAL EXAM: Alert, very pleasant, 45-year-old white female on 2 L of oxygen a pulse ox of 93% comfortable in no apparent distress. HEAD: Normocephalic/atraumatic. EYES: Normal reaction of pupils, equal size. Conjunctiva pink, sclera white. NOSE: Clear with pink turbinates. THROAT: No erythema or exudates. NECK: No masses, no JVD, no thyroid enlargement, no adenopathy. CHEST: No chest wall deformity. Symmetrical expansion. LUNGS: Equal air entry with no crackles, wheeze, rhonchi or dullness. CVS: Regular rate and rhythm, normal S1 and S2, no gallops, no murmurs, no rubs ABDOMEN: Soft, distended but nontender, but soft No hepatosplenomegaly, normal bowel sounds, no guarding or rigidity. EXTREMITIES: No clubbing, no edema, no cyanosis, 2+ pulses and upper and lower extremities. MUSCULOSKELETAL: Muscle strength and tone normal. SPINE: No scoliosis or deformity SKIN: No rashes CENTRAL NERVOUS SYSTEM: Alert and oriented -3. No focal deficits, tone is normal in all 4 extremities. PSYCHIATRIC: Alert and oriented -3. Appropriate affect. Intact judgment and insight. - Labs CBC & Chem 7: 07/20/21 08:02 07/20/21 08:02 Labs: Abnormal Lab Results - Last 24 Hours (Table) 07/19/21 07/19/21 07/20/21 Range/Units 17:04 20:14 07:32 MCHC (32.0-37.0) g/dL Potassium (3.5-5.5) mmol/L Carbon Dioxide (20.0-27.5) mmol/L Anion Gap (10.00-18.00) mmol/L BUN (9.0-27.0) mg/dL Glucose (70-110) mg/dL POC Glucose (mg/dL) 212 H 195 H 101 H (75-99) mg/dL Calcium (8.7-10.3) mg/dL 07/20/21 07/20/21 07/20/21 Range/Units 08:02 08:02 12:02 MCHC 31.7 L (32.0-37.0) g/dL Potassium 3.4 L (3.5-5.5) mmol/L Carbon Dioxide 33.5 H (20.0-27.5) mmol/L Anion Gap 8.50 L (10.00-18.00) mmol/L BUN 8.6 L (9.0-27.0) mg/dL Glucose 140 H (70-110) mg/dL POC Glucose (mg/dL) 173 H (75-99) mg/dL Calcium 8.6 L (8.7-10.3) mg/dL Microbiology - Last 24 Hours (Table) 07/17/21 07:19 Blood Culture Gram Stain - Final Blood Blood Culture - Final Methicillin resist S. aureus 07/17/21 14:18 Blood Culture Gram Stain - Final Blood Blood Culture - Final Methicillin resist S. aureus 07/17/21 14:19 Blood Culture Gram Stain - Final Blood Blood Culture - Final Methicillin resist S. aureus 07/18/21 06:44 Blood Culture Gram Stain - Preliminary Blood Blood Culture - Preliminary Presumptive MRSA 07/19/21 06:11 Blood Culture - Final Blood 07/16/21 08:03 Blood Culture Gram Stain - Final Blood Blood Culture - Final Methicillin resist S. aureus Assessment and Plan Plan: #1. MRSA sepsis with persistent bacteremia, currently on vancomycin. Most recent blood culture from 06/17/2019 was positive. Patient has vegetation on the pacemaker lead and she may need to go to [facility] for lead extraction. Please refer to the TEODORO results. The patient was supposed to be going to [facility] and there is a change in plan and this will be done here by Dr. Grayson where the patient is going to undergo any extraction. He remains on academic. She is on vancomycin. #2. 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 The patient currently is on prednisone 20 mg by mouth daily #3. Recent hospitalization for acute pancreatitis that was thought to be drug induced, improved #4. Multisystem sarcoidosis, currently on prednisone therapy, I taper the pat maria's prednisone to 20 mg by mouth daily #5. Recent hospitalization for acute pneumonia, difficulty breathing, right lung collapse, and acute hypoxic respiratory failure, status post bronchoscopy #6. Chronic A. fib on Eliquis on outpatient basis and this medication has been resumed for now #7. Diabetes mellitus type 2 #8. Hypertension #9. Hyperlipidemia #10. Previous history of myocardial infarction #11. Sleep apnea #12. 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 Multiple sclerosis #15. Permanent pacemaker implantation and AICD placement #16. ADD/ADHD #17. Anxiety and depression #18. History of cardiac sarcoidosis and secondary cardiomyopathy, most recent ec hocardiogram reveals impaired left ventricular systolic function with ejection fraction 35-40% #19. History of cardiac arrhythmias related to cardiac sarcoidosis and had undergone previous cardiac MRI and the patient has sinus syndrome and dual- chamber pacemaker/AICD placed #20, cold sores and the patient is currently on Valtrex Plan: Clinically stable Awaiting lead extraction by electrophysiology, Dr. Grayson Follow-up blood cultures are still positive for MRSA ID is on the case Continued IV vancomycin TEODORO results were noted Repeat another set of blood cultures in a.m. Continue prednisone at 20 mg daily Continue BiPAP support at night and as needed with pressures of 10 of 5 and FiO2 of 30% Blood cultures remain persistently positive patient will likely need a transesophageal echocardiogram Continue current medical treatment Prognosis poor baseline above-mentioned comorbidities.
--- NOTE | 2021-07-20 13:00 | P.PN ---
Subjective Progress Note Date: 07/20/21 The patient is a 45-year-old female with multiple comorbid conditions including cardiac sarcoidosis and complete heart block, who is currently admitted to the hospital with MRSA bacteremia. The patient underwent TEODORO where she was found to have vegetation on her AICD lead. Dr. Hinojosa will need to perform a lead extraction as she has persistently positive blood cultures. A temporary RV pacemaker lead will be placed with her current device until bacteremia resolves. Extensive course of IV antibiotics as recommended by infectious disease. Future biventricular AICD placement, using right-sided device once antibiotics are discontinued. The patient presented reviewed and examined sitting comfortably in bed. She states she did relatively well overnight. She does not sleep and long stretches secondary to her steroids, however did sleep with the BiPAP overnight. She feels well and denies any fevers or chills. No heart racing or fluttering. No chest pain or chest pressure. No dyspnea at rest. GENERAL: Well-appearing, well-nourished and in no acute distress. NECK: Supple without JVD or thyromegaly. LUNGS: Breath sounds diminished to auscultation bilaterally. Respiration equal and unlabored. No wheezes, rales or rhonchi. HEART: Regular rate and rhythm without murmurs, rubs or gallops. S1 and S2 heard. EXTREMITIES: Normal range of motion, no edema. No clubbing or cyanosis. Peripheral pulses intact and strong. VITALS: Blood pressure 125/86, respiratory rate 17, SpO2 95% on room air, pulse 69 TELEMETRY: Paced rhythm LABS: WBC 8.6, hemoglobin 12.6, hematocrit 39.7, sodium 142, potassium 3.4, BUN 8.6, creatinine 0.6 IMPRESSION: MRSA bacteremia, vegetation noted on ICD lead Nonischemic cardiomyopathy, status post AICD Complete heart block, 100% by be paced Pulmonary and cardiac sarcoidosis Hypertension Diabetes Paroxysmal atrial fibrillation PLAN: Proceed with lead extraction tomorrow Temporary RV pacemaker lead until bacteremia resolves Nothing by mouth after midnight Future PICC line placement on the left side as future AICD replacement device will be on the right I am dictating on behalf of Dr Erasto Hinojosa's history/physical and assessment/plan. Objective - Vital Signs Vital signs: Vital Signs Temp 98.4 F 07/20/21 08:06 Pulse 69 07/20/21 08:06 Resp 17 07/20/21 08:06 BP 125/86 07/20/21 08:06 Pulse Ox 95 07/20/21 08:06 FiO2 30 07/20/21 02:33 Intake & Output 07/19/21 07/20/21 07/20/21 18:59 06:59 18:59 Intake Total 680 Balance 680 Weight 122.47 kg Intake: IV 200 Oral 480 Other: Voiding Method Toilet # Voids 2 2 - Labs CBC & Chem 7: 07/20/21 08:02 07/20/21 08:02 Labs: Abnormal Lab Results - Last 24 Hours (Table) 07/19/21 07/19/21 07/20/21 Range/Units 17:04 20:14 07:32 MCHC (32.0-37.0) g/dL Potassium (3.5-5.5) mmol/L Carbon Dioxide (20.0-27.5) mmol/L Anion Gap (10.00-18.00) mmol/L BUN (9.0-27.0) mg/dL Glucose (70-110) mg/dL POC Glucose (mg/dL) 212 H 195 H 101 H (75-99) mg/dL Calcium (8.7-10.3) mg/dL 07/20/21 07/20/21 07/20/21 Range/Units 08:02 08:02 12:02 MCHC 31.7 L (32.0-37.0) g/dL Potassium 3.4 L (3.5-5.5) mmol/L Carbon Dioxide 33.5 H (20.0-27.5) mmol/L Anion Gap 8.50 L (10.00-18.00) mmol/L BUN 8.6 L (9.0-27.0) mg/dL Glucose 140 H (70-110) mg/dL POC Glucose (mg/dL) 173 H (75-99) mg/dL Calcium 8.6 L (8.7-10.3) mg/dL Microbiology - Last 24 Hours (Table) 07/17/21 07:19 Blood Culture Gram Stain - Final Blood Blood Culture - Final Methicillin resist S. aureus 07/17/21 14:18 Blood Culture Gram Stain - Final Blood Blood Culture - Final Methicillin resist S. aureus 07/17/21 14:19 Blood Culture Gram Stain - Final Blood Blood Culture - Final Methicillin resist S. aureus 07/18/21 06:44 Blood Culture Gram Stain - Preliminary Blood Blood Culture - Preliminary Presumptive MRSA 07/19/21 06:11 Blood Culture - Final Blood 07/16/21 08:03 Blood Culture Gram Stain - Final Blood Blood Culture - Final Methicillin resist S. aureus
--- NOTE | 2021-07-20 14:19 | P.PN ---
Subjective Progress Note Date: 07/20/21 Principal diagnosis: MRSA bacteremia Patient is a 45-year-old female with a past medical history significant for diabetes mellitus hypertension hyperlipidemia cardiomyopathy status post AICD placement acute pancreatitis anxiety depression patient recently underwent on bronchoscopy with a biopsy by Dr. Sow on 06/27/2021 and was noticed to have a nonnecrotizing granulomatous and chronic inflammation negative for malignancy, subsequently presented to hospital with the lateral chest pain shortness of breath and cough did have a fever and evidence of MRSA bacteremia. Patient did have persistent bacteremia for which the patient did have a TEODORO completed 07/20/2019 was suggestive of vegetation on the AICD lead On today's evaluation that is 07/20/2021, patient remains to be febrile, patient is breathing comfortably currently on room air, the patient cough has decreased in intensity and mostly dry in nature, the patient denies any nausea no vomiting no abdominal pain or diarrhea Objective - Vital Signs Vital signs: Vital Signs Temp 98.4 F 07/20/21 08:06 Pulse 69 07/20/21 08:06 Resp 17 07/20/21 08:06 BP 125/86 07/20/21 08:06 Pulse Ox 95 07/20/21 08:06 FiO2 30 07/20/21 02:33 Intake & Output 07/19/21 07/20/21 07/20/21 18:59 06:59 18:59 Intake Total 680 Balance 680 Weight 122.47 kg Intake: IV 200 Oral 480 Other: Voiding Method Toilet # Voids 2 2 - Exam GENERAL DESCRIPTION: Middle-age female lying in bed in no distress RESPIRATORY SYSTEM: Unlabored breathing , decreased breath sounds at bases HEART: S1 S2 regular rate and rhythm , ABDOMEN: Soft , no tenderness EXTREMITIES: No edema feet - Labs CBC & Chem 7: 07/20/21 08:02 07/20/21 08:02 Labs: Abnormal Lab Results - Last 24 Hours (Table) 07/19/21 07/19/21 07/19/21 Range/Units 12:00 17:04 20:14 MCHC (32.0-37.0) g/dL Potassium (3.5-5.5) mmol/L Carbon Dioxide (20.0-27.5) mmol/L Anion Gap (10.00-18.00) mmol/L BUN (9.0-27.0) mg/dL Glucose (70-110) mg/dL POC Glucose (mg/dL) 209 H 212 H 195 H (75-99) mg/dL Calcium (8.7-10.3) mg/dL 07/20/21 07/20/21 07/20/21 Range/Units 07:32 08:02 08:02 MCHC 31.7 L (32.0-37.0) g/dL Potassium 3.4 L (3.5-5.5) mmol/L Carbon Dioxide 33.5 H (20.0-27.5) mmol/L Anion Gap 8.50 L (10.00-18.00) mmol/L BUN 8.6 L (9.0-27.0) mg/dL Glucose 140 H (70-110) mg/dL POC Glucose (mg/dL) 101 H (75-99) mg/dL Calcium 8.6 L (8.7-10.3) mg/dL Microbiology - Last 24 Hours (Table) 07/18/21 06:44 Blood Culture Gram Stain - Preliminary Blood Blood Culture - Preliminary Presumptive MRSA 07/19/21 06:11 Blood Culture - Final Blood 07/16/21 08:03 Blood Culture Gram Stain - Final Blood Blood Culture - Final Methicillin resist S. aureus 07/17/21 07:19 Blood Culture Gram Stain - Preliminary Blood Blood Culture - Preliminary Presumptive MRSA 07/17/21 14:18 Blood Culture Gram Stain - Preliminary Blood Blood Culture - Preliminary Presumptive MRSA 07/17/21 14:19 Blood Culture Gram Stain - Preliminary Blood Blood Culture - Preliminary Presumptive MRSA Assessment and Plan (1) Pneumonia Current Visit: Yes Status: Acute Code(s): J18.9 - PNEUMONIA, UNSPECIFIED ORGANISM SNOMED Code(s): 551518127 Plan: 1patient with MRSA bacteremia more likely secondary to the pneumonia in this patient presented to hospital with increasing shortness of breath hypoxemia with evidence of right middle lobe pneumonia, currently with no other obvious focus for this bacteremia in this patient with no skin lesion or joint swelling and abdominal was soft on clinical examination. 2 patient did have persistent bacteremia concerning for possible endovascular source patient did have TEODORO suggestive of vegetation on the AICD lead 3patient to continue with vancomycin pharmacy to dose unfortunately rifampin could not be added as the patient is on Eliquis , blood culture daily to document clearance Time with Patient: Less than 30
[2021-07-20 17:22] LABS: Glucose,Whole Blood 193 mg/dL (75-99)
[2021-07-20 20:17] LABS: Glucose,Whole Blood 159 mg/dL (75-99)
[2021-07-20] MEDS: LATANOPROST 0.005% OPHTH DROPS 2.5 ML BTL RIGHT EYE SCH (20:40)
[2021-07-21] MEDS: VANCOMYCIN 1,750 MG in SODIUM CHLORIDE 0.9% 500 ML 500 ML IVPB SCH ×3 (00:59→16:42)
[2021-07-21] MEDS: APIXABAN 5 MG TAB PO SCH ×2 (02:21→21:07)
[2021-07-21 08:17] LABS: Glucose,Whole Blood 125 mg/dL (75-99)
--- NOTE | 2021-07-21 08:53 | P.PN ---
Subjective Progress Note Date: 07/21/21 Patient is doing well today, status post venogram yesterday. Per EP, we can be pulled out here without need of laser removal, scheduled for today. Ongoing vancomycin for MRSA bacteremia. Patient will receive a temporary lead after infected lead is removed. Gen: awake, alert HEENT: normocephalic, atraumatic, good hearing acuity, moist mucous membranes Resp: good air exchange, breathing comfortably with no accessory muscle use CVS: good distal perfusion x 4, GI: soft, NTTP, ND : no SPT, no CVAT, reyes catheter not present MSK: no pitting edema, no clubbing Neuro: non-focal, moving all extremities Psych: cooperative, euthymic mood Assessment/plan: MRSA bacteremia overall continue IV antibiotics as per infectious disease Repeat blood cultures daily til clearance Patient started on vancomycin Initially was on azithromycin and Zosyn that are now discontinued We'll check echocardiogram, TEODORO Infection disease consulted Sarcoidosis with pulmonary, cardiac involvement Stable, continue home dose of prednisone Pulmonary medicine following Chronic CHF with EF 35-50% status post AICD placement Continue Coreg, continue Lasix Not on AZEB inhibitor Morbid obeisty with BM 43.6 and obstructive sleep apnea Recommend structured outpatient weight loss. Continue CPAP Anxiety and depression Continue Paxil Patient is requesting for Xanax as needed, discussed that in the long run she will benefit from psychiatric rest follow-up and careful titration of regimen for her anxiety and depression Recent pancreatitis Reported abdominal discomfort with fluid Check lipase, advance diet slowly as tolerated Atrial fibrillation Continue Coreg and Eliquis Insomnia Continue melatonin DM 2 with hyperglycemia Hold oral hypoglycemic Hemoglobin is 7.3 Continues on sliding scale Dyslipidemia Cont fenofibrate, zetia Hypothyroidism Cont levothyroxine CODE STATUS: Full code DVT prophylaxis: Lovenox Dispo Plan: Pending hospital course, likely back to home to be determined Objective - Vital Signs Vital signs: Vital Signs Temp 98.4 F 07/21/21 08:00 Pulse 93 07/21/21 08:00 Resp 18 07/21/21 08:00 BP 119/80 07/21/21 08:00 Pulse Ox 97 07/21/21 08:00 FiO2 30 07/21/21 04:50 Intake & Output 07/20/21 07/21/21 07/21/21 18:59 06:59 18:59 Intake Total 480 Balance 480 Weight 122.47 kg Intake: Oral 480 Other: Voiding Method Toilet # Voids 2 - Labs CBC & Chem 7: 07/20/21 08:02 07/20/21 08:02 Labs: Abnormal Lab Results - Last 24 Hours (Table) 07/20/21 07/20/21 07/20/21 Range/Units 08:02 08:02 12:02 MCHC 31.7 L (32.0-37.0) g/dL Potassium 3.4 L (3.5-5.5) mmol/L Carbon Dioxide 33.5 H (20.0-27.5) mmol/L Anion Gap 8.50 L (10.00-18.00) mmol/L BUN 8.6 L (9.0-27.0) mg/dL Glucose 140 H (70-110) mg/dL POC Glucose (mg/dL) 173 H (75-99) mg/dL Calcium 8.6 L (8.7-10.3) mg/dL 07/20/21 07/20/21 07/21/21 Range/Units 17:18 20:16 08:00 MCHC (32.0-37.0) g/dL Potassium (3.5-5.5) mmol/L Carbon Dioxide (20.0-27.5) mmol/L Anion Gap (10.00-18.00) mmol/L BUN (9.0-27.0) mg/dL Glucose (70-110) mg/dL POC Glucose (mg/dL) 193 H 159 H 125 H (75-99) mg/dL Calcium (8.7-10.3) mg/dL Microbiology - Last 24 Hours (Table) 07/19/21 06:11 Blood Culture Gram Stain - Preliminary Blood 07/17/21 07:19 Blood Culture Gram Stain - Final Blood Blood Culture - Final Methicillin resist S. aureus 07/17/21 14:18 Blood Culture Gram Stain - Final Blood Blood Culture - Final Methicillin resist S. aureus 07/17/21 14:19 Blood Culture Gram Stain - Final Blood Blood Culture - Final Methicillin resist S. aureus 07/18/21 06:44 Blood Culture Gram Stain - Preliminary Blood Blood Culture - Preliminary Presumptive MRSA 07/19/21 06:11 Blood Culture - Final Blood
[2021-07-21] MEDS: ALBUTEROL HFA INHALER INHALATION PRN (09:05)
[2021-07-21] MEDS: INSULIN ASPART (NovoLOG) 100 UNIT/ML VIAL SQ SCH ×4 (09:10→21:07)
[2021-07-21] MEDS: FUROSEMIDE 10 MG/ML 4 ML VIAL IV SCH (09:20)
[2021-07-21] MEDS: carvediloL 3.125 MG TAB PO SCH ×2 (09:20→21:07)
[2021-07-21] MEDS: EZETIMIBE 10 MG TAB PO SCH (09:20)
[2021-07-21] MEDS: LEVOTHYROXINE 88 MCG TAB PO SCH (09:20)
[2021-07-21] MEDS: predniSONE 20 MG TAB PO SCH (09:20)
[2021-07-21] MEDS: PARoxetine 10 MG TAB PO SCH (09:20)
[2021-07-21] MEDS: PANTOPRAZOLE 40 MG TABLET PO SCH ×2 (09:20→16:42)
[2021-07-21] MEDS ORDERED: ceFAZolin 1,000 MG in SODIUM CHLORIDE 0.9% IRRIG BTL 250 ML IRRIGATION ONE (10:00)
[2021-07-21] MEDS ORDERED: ceFAZolin 1,000 MG in SODIUM CHLORIDE 0.9% IRRIGATIO 1,000 ML IRRIGATION ONE (10:00)
[2021-07-21] MEDS ORDERED: KETAMINE 10 MG/ML 20 ML VIAL ONE (10:03)
[2021-07-21] MEDS ORDERED: fentaNYL (PF) 50 MCG/ML 2 ML AMP ONE (10:03)
[2021-07-21] MEDS ORDERED: MIDAZOLAM 2 MG/2 ML VIAL ONE (10:03)
[2021-07-21] MEDS ORDERED: KETOROLAC 15 MG/ML 1 ML VIAL ONE (10:03)
[2021-07-21] MEDS ORDERED: SODIUM CHLORIDE 0.9% 500 ML 500 ML IV ONE (10:30)
[2021-07-21] MEDS ORDERED: LIDOCAINE 1% INJ 10MG/ML (30 ML VIAL-PF) SQ ONE ×2 (10:40→10:59)
--- NOTE | 2021-07-21 13:03 | P.PN ---
Progress Note - Text Impression and plan Infected right antecubital IV line, Hep-Lock that lead to MRSA bacteremia MRSA septicemia, persistently positive blood cultures TEODORO demonstrated vegetation, most likely in the ICD leadDrLazaro Hinojosa personally performed the H/P and MDM and confirms the accuracy of the transcribed documentation Nurse practitioner provided documentation assistance On IV vancomycin Status post extraction of the right atrial lead Extraction of the RV lead Extraction of the LV lead Implantation of a new single chamber pacemaker lead and generator Device programmed to VVIR 50-100 PPM Her pocket looked very clean Tyrx pouch placed in the pocket Her atrium is in typical atrial flutter Plan Continue IV vancomycin for MRSA septicemia Left upper extremity only Once antibiotic course is complete then weekly bacterial cultures to confirm absence of growth Thereafter, first management of typical atrial flutter Following that reimplantation of the Bi V ICD from the right side No further interventions until we demonstrate that her MRSA infection is completely resolved off antibiotics Resume anticoagulation Continue Lasix as long as she is on IV vancomycin to avoid iatrogenic fluid overload
--- NOTE | 2021-07-21 13:05 | P.EPPROC ---
- EP Procedure Note Electrophysiology Procedure Note: Transvenous temporary pacing procedure Indication for the procedure: Severe underlying bradycardia Patient was brought to the EP lab in a fasting state. Written informed consent was obtained prior to the procedure. The right groin was prepped and draped as a protocol. A 6-Irish sheath was placed in the right femoral vein. Via this, a temporary pacing catheter was placed in the right ventricle. Thresholds were interrogated. Temporary pacing was performed through the rest of the procedure. At the end of the entire procedure, the TVP was removed. The sheath was removed and hemostasis was assured. With Vascade Patient tolerated the procedure well without any acute complications. Procedure performed Transvenous temporary pacing
--- NOTE | 2021-07-21 13:16 | P.EPPROC ---
- EP Procedure Note Electrophysiology Procedure Note: Diagnosis Persistent MRSA bacteremia/septicemia with abnormal toe with vegetations along the ICD lead Original source was an IV Hep-Lock in the right antecubital pain Result Successful extraction of the right atrial lead Successful extraction of the LV lead Successful extraction of the RV ICD lead Implantation of a new RV pacing lead in the RV apex, using the right atrial lead as an access Implantation of single-chamber pacemaker generator in the pocket Her pocket looked clean intraoperatively Details Patient was brought to the EP lab Under conscious sedation the left pectoral area was prepped and draped as a protocol An incision was made directly of the previous surgical site and carried down to the level of the generator The generator, biventricular ICD, [employer] was explanted First all the 3 leads were freed from the capsule and the pectoralis muscle First access was obtained through the LV lead LV lead is pulled back into the right atrium However a stylet would not pass through the entire length of the LV lead Therefore the angioplasty wire could not be passed through this to obtain and maintain central venous access The right atrial lead was then extracted The stylet was past into the leads body The leads unscrewed With counter clockwise rotations and gradual traction the lead was freed from the right atrial appendage After confirming that the lead was moving freely in the pectoral area into the right atrium and IVC, a while was embedded under the insulation in the entire section was passed into the central circulation This wire was then gently pulled back and then passed along into the right atrium The RV lead was gradually extracted out successfully and hemostasis was assured ICD lead was then freed from the pectoralis muscle Lead could not be completely unscrewed at its tip The stylet not pus beyond the proximal part of the ICD coil A locking stylet was placed up to this point and the lead was partially secured Counter clockwise rotations were performed and we held gradual traction and finally after some time lead was freed from its attachment to the RV septum This lead was then gradually extracted out of the body All through the patient's oxygenation as well as blood pressure remained stable The central axis was retained. An advantage prior However a 7-Swiss sheath with not pus through into the central circulation on account of venous stenosis Serial dilators were used to dilate the subclavian vein With some difficulty and 8-Swiss sheath was then finally placed in the central circulation and a pacing lead, [employer], active fix was positioned in the right atrium This was then positioned in the RV apex and screwed in Good current of injury Pacing threshold 0.5 V at 0.4 ms ultimately and pacing impedance of 380 ohms This is connected to a new pacemaker generator, [facility] MRI [id number] The pacemaker generator was then placed in the pocket TheTyrx pouch was then placed and the wound was closed in 3 layers and dressed per protocol
[2021-07-21 13:53] LABS: Glucose,Whole Blood 195 mg/dL (75-99)
[2021-07-21] MEDS: SODIUM CHLORIDE 0.9% 1,000 ML IV SCH (14:00)
--- NOTE | 2021-07-21 14:05 | P.PN ---
Subjective Progress Note Date: 07/21/21 Physical very pleasant 45-year-old female patient with a known history of previous admission for acute pancreatitis, atrial fibrillation, diabetes mellitus, GI bleeding, hypertension, hyperlipidemia, cardiomyopathy status post AICD placement, anxiety/depression. 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 She had undergone bronchoscopy with biopsies on 06/27/[address] Sow. She was found to have confluent nonnecrotizing granulomas and chronic inflammation. Negative for malignancy. The right middle lobe collapse. She is on an antibiotic and prednisone 50 mg daily. She presented to the emergency room again yesterday with complaints of abdominal discomfort that felt similar to her previous pancreatitis. She did develop anxiety with shortness of breath. She had another CT angiogram that revealed no evidence of pulmonary embolism. There is bilateral pulmonary atelectasis mainly in the right middle lobe consistent with postobstructive atelectasis however it is improved compared to previous. White count 14.5. Hemoglobin 13.2. Platelets 121. Sodium 136. Potassium 4.6. Bicarb 20. BUN 16. Creatinine 0.7. Initial lactic acid 2.8 currently 1.7. Initial blood cultures revealing Staphylococcus aureus. The patient was stating she had some edema and drainage from her right brachial IV site from her previous admission. She was just discharged home on 07/11/2021. She been initiated on vancomycin and azithromycin along with Zosyn. She received 500 mL of fluid resuscitation. She is seen today the patient on the regular medical. She is currently awake and alert in no acute distress. She denies any worsening shortness of breath. Occasional cough with some blood-tinged sputum. She is maintaining O2 saturation in the 90s on 2 L/m per nasal cannula. She's afebrile. Her lipase was 148 yesterday. Down to 132 today. ProBNP 5450. Echocardiogram from previous admission revealed moderately impaired left ventricular systolic function with ejection fraction of 35-40%. She is continued on oral diuretics. She is anticoagulated with Eliquis. On 07/16/2021 patient seen in follow-up on medical surgical floor. She is resting comfortably in bed, denies any acute distress, on 2 L of oxygen patient satting 93-94%. Vital signs have been stable, occasional cough, at times with production of small amount of blood-tinged phlegm. Patient remains on Eliquis. CT angiogram of the chest showed no evidence of pulmonary embolism. And bilateral pulmonary atelectasis, and right middle lobe postobstructive atelectasis, with improvement in aeration compared the last admission. No abdominal pain, no nausea or vomiting, patient remains on small dose of prednisone 20 mg daily, patient was found to be bacteremic, so far blood cu ltures from 07/14/2021 and 07/15/2021 were positive, with preliminary results suggesting presumptive MRSA, sputum culture is pending. Patient is on vancomycin for antibiotic coverage. Patient requested to be put back on BiPAP support at bedtime because she feels short of breath at nighttime. Patient continues on home dose oral Lasix. She feels like her abdomen is bloated, but denies any abdominal pain. Labs have been reviewed, white blood cell count is improved, and is down to 14.5, electrolytes and renal profile are unremarkable. Pro-calcitonin level of increased and is up to 0.64 on today's labs. On 07/17/2021 patient seen in follow-up on medical surgical floor. Follow blood culture from 07/16/2021 is persistently positive for gram-positive cocci in clusters, and blood culture from 07/14/2021 resulted and methicillin-resistant staph aureus. Patient remains on vancomycin for antibiotic coverage, IV service is following. Today's labs have been reviewed, white blood cell count is improved and is down to 10.9, hemoglobin of 11.9, sodium is 138, potassium is 3.8, chloride is 101, CO2 32, BUN is 12, creatinine 0.57. No fever. No chills, no chest pain, no worsening dyspnea, patient is tolerating ambulation about the room, occasional cough, at times with some blood-tinged sputum, small amount. Continues on Eliquis 5 mg twice daily. No nausea vomiting or diarrhea, lipase level is 132. No abdominal pain. Tolerating oral intake. 07/18/2021, seeing the patient in follow-up regarding her complicated septicemia. The patient has persistent bacteremia with MRSA and the patient remains on IV vancomycin. The most recent blood cultures from 07/17/2021, not to be positive for MRSA and I'm getting very highly suspicious that the patient may have an underlying endovascular infection, either infection of a pacemaker wires or infective endocarditis. The patient is afebrile. Hemodynamically stable. No worsening shortness of breath pH is pulmonary sarcoidosis. I kept on the 20 mg of prednisone her white cell count today's attempt 0.3 with a hemoglobin of 12.2. Rest of the blood work essentially within normal limits. BUN is at 11 with a creatinine of 0.7 and the sodium level is at 142. The patient's LFTs are adequate for now. The patient is afebrile. She is having some cold sores on her lips and the patient was started on Valtrex in that regard. The patient remains on the same medications including in the correlation with Eliquis 5 mg by mouth twice a day. She is also on Lasix 40 mg by mouth daily. She is using the BiPAP overnight at a pressure of 10/5 cm of water and the patient is using oxygen on 2 L per minute nasal cannula. On room air oxygen, the pulse ox is around 92%. 07/19 2021, the patient is being seen for a follow-up. She is feeling well as the patient has been diuresing well with Lasix. The patient meanwhile underwent a TEODORO and I discussed the findings with the systems librarian. The patient has possible vegetation on a pacemaker lead with +3 mitral regurgitation and impairment of the LV function. There is a mobile lesion noted in the atrial lead suggestive of vegetation. There is also severe global LV dysfunction no evidence of PFO and there is no evidence of any clot in the left atrial appendage. The patient remains on vancomycin. The plan is to transfer this patient to [facility] for lead extraction. The patient is a white cell count is at 9.9 with a hemoglobin of 11. COVID 19 testing was negative. She is in good spirits. She is doing well. No magistral distress. She is on room air oxygen. 07/20/2021, the patient has no complaints. The patient diurese well with IV Lasix and the patient's status is improved. She remains on room air oxygen. Nevertheless, the patient remains bacteremic and the blood cultures positive for MRSA and the patient remains on IV vancomycin. The patient was seen by electrophysiology, Dr. Grayson and she is being considered for lead extraction within next 24-48 hours. Using the BiPAP overnight. No altered mentation. No respiratory difficulties. White cell count at 8.6 with a hemoglobin of 12.6. Electrolytes are normal. Sodium is at 142. 07/21/2021, the patient's was seen in follow-up. The patient was seen prior to her going to the [facility] and subsequent I saw her in a follow-up. The patient was taken to the the patient had teeth extraction. Approach was through the right femoral vein. Temporary pacing was done during the procedure. These were removed and following that the patient was given a single chamber pacemaker generator in the pocket. In summary, the patient had a successful extraction of the right atrial lead, LV lead and the ICD lead and RV. Current cardiac rhythm is atrial flutter. Hemodynamically stable. During the procedure, the patient did not encounter and hypotension nor she encountered any oxygen desaturation. Blood cultures still positive and the patient remains on vancomycin. She is afebrile. No new labs are available for now. No other complaints otherwise. Patient remains on 20 mg of prednisone. Objective - Vital Signs Vital signs: Vital Signs Temp 98.4 F 07/21/21 08:00 Pulse 93 07/21/21 08:00 Resp 18 07/21/21 08:00 BP 119/80 07/21/21 08:00 Pulse Ox 97 07/21/21 08:00 FiO2 30 07/21/21 04:50 Intake & Output 07/20/21 07/21/21 07/21/21 18:59 06:59 18:59 Intake Total 480 300 Balance 480 300 Weight 122.47 kg Intake: IV 300 Oral 480 Other: Voiding Method Toilet # Voids 2 - Exam GENERAL EXAM: Alert, very pleasant, 45-year-old white female on 2 L of oxygen a pulse ox of 93% comfortable in no apparent distress. HEAD: Normocephalic/atraumatic. EYES: Normal reaction of pupils, equal size. Conjunctiva pink, sclera white. NOSE: Clear with pink turbinates. THROAT: No erythema or exudates. NECK: No masses, no JVD, no thyroid enlargement, no adenopathy. CHEST: No chest wall deformity. Symmetrical expansion. LUNGS: Equal air entry with no crackles, wheeze, rhonchi or dullness. CVS: Regular rate and rhythm, normal S1 and S2, no gallops, no murmurs, no rubs ABDOMEN: Soft, distended but nontender, but soft No hepatosplenomegaly, normal bowel sounds, no guarding or rigidity. EXTREMITIES: No clubbing, no edema, no cyanosis, 2+ pulses and upper and lower extremities. MUSCULOSKELETAL: Muscle strength and tone normal. SPINE: No scoliosis or deformity SKIN: No rashes CENTRAL NERVOUS SYSTEM: Alert and oriented -3. No focal deficits, tone is normal in all 4 extremities. PSYCHIATRIC: Alert and oriented -3. Appropriate affect. Intact judgment and insight. - Labs CBC & Chem 7: 07/20/21 08:02 07/20/21 08:02 Labs: Abnormal Lab Results - Last 24 Hours (Table) 07/20/21 07/20/21 07/21/21 Range/Units 17:18 20:16 08:00 POC Glucose (mg/dL) 193 H 159 H 125 H (75-99) mg/dL 07/21/21 Range/Units 13:51 POC Glucose (mg/dL) 195 H (75-99) mg/dL Microbiology - Last 24 Hours (Table) 07/18/21 06:44 Blood Culture Gram Stain - Final Blood Blood Culture - Final Methicillin resist S. aureus 07/19/21 06:11 Blood Culture Gram Stain - Preliminary Blood Blood Culture - Preliminary Presumptive MRSA 07/17/21 07:19 Blood Culture Gram Stain - Final Blood Blood Culture - Final Methicillin resist S. aureus 07/17/21 14:18 Blood Culture Gram Stain - Final Blood Blood Culture - Final Methicillin resist S. aureus 07/17/21 14:19 Blood Culture Gram Stain - Final Blood Blood Culture - Final Methicillin resist S. aureus Assessment and Plan Plan: #1. MRSA sepsis with persistent bacteremia, currently on vancomycin. Most recent blood culture from 06/17/2019 was positive. Patient has vegetation on the pacemaker lead and the patient underwent lead extraction and the patient was given a temporary pacemaker. The procedure was done without any complications and the patient will be transferred to a telemetry unit. The patient remains on IV vancomycin and follow blood cultures will be obtained. The most recent positive blood cultures from 07/19/2021. #2. 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 The patient currently is on prednisone 20 mg by mouth daily #3. Recent hospitalization for acute pancreatitis that was thought to be drug induced, improved #4. 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 Recent hospitalization for acute pneumonia, difficulty breathing, right lung collapse, and acute hypoxic respiratory failure, status post bronchoscopy #6. Chronic A. fib on Eliquis on outpatient basis and this medication has been resumed for now #7. Diabetes mellitus type 2 #8. Hypertension #9. Hyperlipidemia #10. Previous history of myocardial infarction #11. Sleep apnea #12. 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 Multiple sclerosis #15. Permanent pacemaker implantation and AICD placement #16. ADD/ADHD #17. Anxiety and depression #18. History of cardiac sarcoidosis and secondary cardiomyopathy, most recent echocardiogram reveals impaired left ventricular systolic function with ejection fraction 35-40% #19. History of cardiac arrhythmias related to cardiac sarcoidosis and had un dergone previous cardiac MRI and the patient has sinus syndrome and dual-chamber pacemaker/AICD placed #20, cold sores and the patient is currently on Valtrex Plan: Clinically stable The patient completed lead extraction by electrophysiology, Dr. Grayson Follow-up blood cultures are still positive for MRSA, we'll repeat the cultures ID is on the case Continued IV vancomycin Admit the patient to telemetry unit. Continue prednisone at 20 mg daily Continue BiPAP support at night and as needed with pressures of 10 of 5 and FiO2 of 30% Jalen the PICC line once the bacteremia is recovered Continue current medical treatment Prognosis poor baseline above-mentioned comorbidities.
[2021-07-21 15:59] LABS: African American GFR (CKD) >90 (>60 ml/min/1.73 sqM); Anion Gap 3 mmol/L; Basophils % (A) 0 %; Blood Urea Nitrogen 12 mg/dL (7-17); Calcium 8.2 mg/dL (8.4-10.2); Carbon Dioxide 33 mmol/L (22-30); Chloride 101 mmol/L (98-107); Eosinophils % (A) 1 %; Glucose 183 mg/dL (74-99); HCT 39.1 % (34.0-46.0); HGB 12.5 gm/dL (11.4-16.0); Lymphocytes # (A) 0.5 k/uL (1.0-4.8); Lymphocytes % (A) 6 %; MCH 28.8 pg (25.0-35.0); MCV 89.9 fL (80.0-100.0); Magnesium 1.8 mg/dL (1.6-2.3); Mean Platelet Volume 9.1; Monocytes # (A) 0.3 k/uL (0-1.0); Monocytes % (A) 3 %; Neutrophils # (A) 7.6 k/uL (1.3-7.7); Neutrophils % (A) 89 %; Non-African American GFR(CKD) >90 (>60 ml/min/1.73 sqM); RBC 4.35 m/uL (3.80-5.40); RDW 14.7 % (11.5-15.5); Sodium 137 mmol/L (137-145); WBC 8.5 k/uL (3.8-10.6)
[2021-07-21 16:13] LABS: Glucose,Whole Blood 200 mg/dL (75-99)
[2021-07-21 16:44] LABS: Platelet Count 167 k/uL (150-450)
[2021-07-21 19:56] LABS: Glucose,Whole Blood 244 mg/dL (75-99)
[2021-07-21] MEDS: HYDROcodone/APAP 5-325MG 1 EACH TAB PO PRN (20:15)
[2021-07-21] MEDS: LATANOPROST 0.005% OPHTH DROPS 2.5 ML BTL RIGHT EYE SCH (21:08)
[2021-07-22] MEDS: ONDANSETRON 4 MG/2 ML VIAL IVP PRN (00:16)
[2021-07-22] MEDS: ACETAMINOPHEN TAB 325 MG TAB PO PRN ×3 (00:25→21:30)
[2021-07-22] MEDS: VANCOMYCIN 1,750 MG in SODIUM CHLORIDE 0.9% 500 ML 500 ML IVPB SCH ×3 (01:10→16:52)
[2021-07-22 06:07] LABS: Glucose,Whole Blood 237 mg/dL (75-99)
[2021-07-22] MEDS: INSULIN ASPART (NovoLOG) 100 UNIT/ML VIAL SQ SCH ×4 (06:13→21:30)
[2021-07-22] MEDS: PANTOPRAZOLE 40 MG TABLET PO SCH ×2 (06:13→16:52)
[2021-07-22] MEDS ORDERED: VANCOMYCIN TROUGH DUE 1 EACH MISC MISCELLANE ONE (08:00)
[2021-07-22 08:34] LABS: African American GFR (CKD) >90 (>60 ml/min/1.73 sqM); Anion Gap 8 mmol/L; Blood Urea Nitrogen 16 mg/dL (7-17); Calcium 8.8 mg/dL (8.4-10.2); Carbon Dioxide 29 mmol/L (22-30); Chloride 102 mmol/L (98-107); Glucose 171 mg/dL (74-99); Non-African American GFR(CKD) >90 (>60 ml/min/1.73 sqM); Potassium 4.4 mmol/L (3.5-5.1); Sodium 139 mmol/L (137-145)
[2021-07-22] MEDS: ALBUTEROL HFA INHALER INHALATION PRN ×4 (08:57→20:47)
[2021-07-22] MEDS: FUROSEMIDE 10 MG/ML 4 ML VIAL IV SCH (09:00)
[2021-07-22] MEDS: carvediloL 3.125 MG TAB PO SCH ×2 (09:01→21:30)
[2021-07-22] MEDS: APIXABAN 5 MG TAB PO SCH ×2 (09:01→21:30)
[2021-07-22] MEDS: PARoxetine 10 MG TAB PO SCH (09:01)
[2021-07-22] MEDS: predniSONE 20 MG TAB PO SCH (09:01)
[2021-07-22] MEDS: LEVOTHYROXINE 88 MCG TAB PO SCH (09:01)
[2021-07-22] MEDS: EZETIMIBE 10 MG TAB PO SCH (09:01)
[2021-07-22] MEDS: SODIUM CHLORIDE 0.9% 1,000 ML IV SCH (09:07)
--- NOTE | 2021-07-22 10:01 | P.PN ---
Subjective Progress Note Date: 07/22/21 Patient is doing well today, s/p lead extraction and temporary RV pacing lead placement yesterday via EP. Ongoing IV Abx. Gen: awake, alert HEENT: normocephalic, atraumatic, good hearing acuity, moist mucous membranes Resp: good air exchange, breathing comfortably with no accessory muscle use CVS: good distal perfusion x 4, GI: soft, NTTP, ND : no SPT, no CVAT, reyes catheter not present MSK: no pitting edema, no clubbing Neuro: non-focal, moving all extremities Psych: cooperative, euthymic mood Assessment/plan: MRSA bacteremia overall continue IV antibiotics as per infectious disease Repeat blood cultures daily til clearance Patient started on vancomycin Initially was on azithromycin and Zosyn that are now discontinued We'll check echocardiogram, TEODORO Infection disease consulted Sarcoidosis with pulmonary, cardiac involvement Stable, continue home dose of prednisone Pulmonary medicine following Chronic CHF with EF 35-50% status post AICD placement Continue Coreg, continue Lasix Not on AZEB inhibitor Morbid obeisty with BM 43.6 and obstructive sleep apnea Recommend structured outpatient weight loss. Continue CPAP Anxiety and depression Continue Paxil Patient is requesting for Xanax as needed, discussed that in the long run she will benefit from psychiatric rest follow-up and careful titration of regimen for her anxiety and depression Recent pancreatitis Reported abdominal discomfort with fluid Check lipase, advance diet slowly as tolerated Atrial fibrillation Continue Coreg and Eliquis Insomnia Continue melatonin DM 2 with hyperglycemia Hold oral hypoglycemic Hemoglobin is 7.3 Continues on sliding scale Dyslipidemia Cont fenofibrate, zetia Hypothyroidism Cont levothyroxine CODE STATUS: Full code DVT prophylaxis: Lovenox Dispo Plan: Pending hospital course, likely back to home to be determined Objective - Vital Signs Vital signs: Vital Signs Temp 96.8 F L 07/22/21 09:18 Pulse 50 L 07/22/21 09:18 Resp 20 07/22/21 09:18 BP 129/87 07/22/21 09:18 Pulse Ox 98 07/22/21 09:18 FiO2 35 07/22/21 04:08 Intake & Output 07/21/21 07/22/21 07/22/21 18:59 06:59 18:59 Intake Total 300 480 10 Balance 300 480 10 Weight 121.3 kg Intake: IV 300 10 Invasive Line 4 10 Oral 480 Other: Voiding Method Toilet Toilet # Voids 2 - Labs CBC & Chem 7: 07/21/21 15:10 07/22/21 07:18 Labs: Abnormal Lab Results - Last 24 Hours (Table) 07/21/21 07/21/21 07/21/21 Range/Units 13:51 15:10 15:10 Lymphocytes # 0.5 L (1.0-4.8) k/uL Carbon Dioxide 33 H (22-30) mmol/L Glucose 183 H (74-99) mg/dL POC Glucose (mg/dL) 195 H (75-99) mg/dL Calcium 8.2 L (8.4-10.2) mg/dL 07/21/21 07/21/21 07/22/21 Range/Units 16:11 19:54 06:06 Lymphocytes # (1.0-4.8) k/uL Carbon Dioxide (22-30) mmol/L Glucose (74-99) mg/dL POC Glucose (mg/dL) 200 H 244 H 237 H (75-99) mg/dL Calcium (8.4-10.2) mg/dL 07/22/21 Range/Units 07:18 Lymphocytes # (1.0-4.8) k/uL Carbon Dioxide (22-30) mmol/L Glucose 171 H (74-99) mg/dL POC Glucose (mg/dL) (75-99) mg/dL Calcium (8.4-10.2) mg/dL Microbiology - Last 24 Hours (Table) 07/18/21 06:44 Blood Culture Gram Stain - Final Blood Blood Culture - Final Methicillin resist S. aureus 07/19/21 06:11 Blood Culture Gram Stain - Preliminary Blood Blood Culture - Preliminary Presumptive MRSA
[2021-07-22 11:57] LABS: Glucose,Whole Blood 227 mg/dL (75-99)
--- NOTE | 2021-07-22 12:58 | P.PN ---
Subjective Progress Note Date: 07/22/21 HISTORY OF PRESENT ILLNESS: This is a 45 year old female with a past medical history significant for cardiomyopathy with AICD implantation, paroxysmal atrial fibrillation on anticoagulation with Eliquis, diabetes, hypertension, hyperlipidemia, multiple sclerosis, and cardiac sarcoidosis. Patient follows in the office with Dr. Hinojosa. We have been asked to see the patient in consultation for TEODORO. Patient examined at the bedside. Patient denies chest pain or pressure. She currently denies shortness of breath. Vital signs are stable. Patient is receiving antibiotics per infectious disease. * EKG reveals paced rhythm with underlying atrial flutter * Chest xray right lower lobe pneumonia which is slightly improved compared to old exam. No heart failure seen. * Laboratory data: W BC 10.36. Hemoglobin 12.2. Platelet count 111. Sodium 142. Potassium 3.4. BUN 11. Creatinine 0.7. * Current home cardiac medications include Eliquis 5 mg twice a day, that he attend milligrams daily, carvedilol 3.125 mg twice a day * Echocardiogram obtained in April 2020 revealed ejection fraction 40-45%. Mild mitral regurgitation. Mild tricuspid regurgitation. * Repeat echocardiogram performed in November 2020 revealed ejection fraction 50- 55%, trace to mild MR, mild TR, and moderate pulmonary hypertension * Repeat echocardiogram performed in June 2021 revealed ejection fraction 35-40%. Valves were difficult to see. * Patient underwent cardiac catheterization in November 2020 revealing normal coronary arteries 07/22/2021 Patient is status post TEODORO revealing vegetation. She is status post extraction of right atrial lead, LV lead, and RV ICD lead and implantation of new RV pacing lead in the RV apex and implantation of signal chamber pacemaker generator in the pocket. Telemetry reveals paced rhythm with underlying atrial flutter. Patient denies chest pain or pressure. She denies shortness of breath. Vital signs are stable. PHYSICAL EXAM: VITAL SIGNS: Reviewed. GENERAL: Well-developed in no acute distress. HEENT: Head is normocephalic. Pupils are equal, round. Sclerae anicteric. Mucous membranes of the mouth are moist. Neck supple. No JVD or thyromegaly LUNGS: Respirations even and unlabored. Lungs diminished to auscultation bilaterally. HEART: Irregular rate and rhythm. S1 and S2 heard. ABDOMEN: Soft. Nondistended. Nontender. EXTREMITIES: Normal range of motion. No clubbing or cyanosis. Peripheral pulses intact. 2+ lower extremity edema NEUROLOGIC: Awake and alert. Oriented x 3. ASSESSMENT: MRSA bacteremia, status post TEODORO revealing vegetation Status post extraction of right atrial lead, LV lead, and RV ICD lead and implantation of new RV pacing lead in the RV apex and implantation of signal chamber pacemaker generator in the pocket Recent hospitalization for acute pneumonia and acute hypoxic respiratory failure, status post bronchoscopy Nonischemic cardiomyopathy with previous AICD History of complete heart block Paroxysmal atrial fibrillation/typical atrial flutter on anticoagulation with Eliquis Pulmonary and cardiac sarcoidosis Hypertension Hyperlipidemia Diabetes mellitus PLAN: Continue current cardiac medications Continue antibiotics per infectious disease Patient will require eventual right sided AICD when bacteremia resolves Further recommendations pending patient course Nurse practitioner note has been reviewed by physician. Signing provider agrees with the documented findings, assessment, and plan of care. Objective - Vital Signs Vital signs: Vital Signs Temp 97.6 F 07/22/21 11:55 Pulse 50 L 07/22/21 11:55 Resp 18 07/22/21 11:55 BP 112/77 07/22/21 11:55 Pulse Ox 97 07/22/21 11:55 FiO2 35 07/22/21 04:08 Intake & Output 07/21/21 07/22/21 07/22/21 18:59 06:59 18:59 Intake Total 300 480 10 Balance 300 480 10 Weight 121.3 kg Intake: IV 300 10 Invasive Line 4 10 Oral 480 Other: Voiding Method Toilet Toilet # Voids 2 - Labs CBC & Chem 7: 07/21/21 15:10 07/22/21 07:18 Labs: Abnormal Lab Results - Last 24 Hours (Table) 07/21/21 07/21/21 07/21/21 Range/Units 13:51 15:10 15:10 Lymphocytes # 0.5 L (1.0-4.8) k/uL Carbon Dioxide 33 H (22-30) mmol/L Glucose 183 H (74-99) mg/dL POC Glucose (mg/dL) 195 H (75-99) mg/dL Calcium 8.2 L (8.4-10.2) mg/dL 07/21/21 07/21/21 07/22/21 Range/Units 16:11 19:54 06:06 Lymphocytes # (1.0-4.8) k/uL Carbon Dioxide (22-30) mmol/L Glucose (74-99) mg/dL POC Glucose (mg/dL) 200 H 244 H 237 H (75-99) mg/dL Calcium (8.4-10.2) mg/dL 07/22/21 07/22/21 Range/Units 07:18 11:55 Lymphocytes # (1.0-4.8) k/uL Carbon Dioxide (22-30) mmol/L Glucose 171 H (74-99) mg/dL POC Glucose (mg/dL) 227 H (75-99) mg/dL Calcium (8.4-10.2) mg/dL Microbiology - Last 24 Hours (Table) 07/18/21 06:44 Blood Culture Gram Stain - Final Blood Blood Culture - Final Methicillin resist S. aureus 07/19/21 06:11 Blood Culture Gram Stain - Preliminary Blood Blood Culture - Preliminary Presumptive MRSA
--- NOTE | 2021-07-22 15:42 | P.PN ---
Subjective Progress Note Date: 07/22/21 Principal diagnosis: Bacteremia Physical very pleasant 45-year-old female patient with a known history of previous admission for acute pancreatitis, atrial fibrillation, diabetes m ellitus, GI bleeding, hypertension, hyperlipidemia, cardiomyopathy status post AICD placement, anxiety/depression. 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 She had undergone bronchoscopy with biopsies on 06/27/[address] Sow. She was found to have confluent nonnecrotizing granulomas and chronic inflammation. Negative for malignancy. The right middle lobe collapse. She is on an antibiotic and prednisone 50 mg daily. She presented to the emergency room again yesterday with complaints of abdominal discomfort that felt similar to her previous pancreatitis. She did develop anxiety with shortness of breath. She had another CT angiogram that revealed no evidence of pulmonary embolism. There is bilateral pulmonary atelectasis mainly in the right middle lobe consistent with postobstructive atelectasis however it is improved compared to previous. White count 14.5. Hemoglobin 13.2. Platelets 121. Sodium 136. Potassium 4.6. Bicarb 20. BUN 16. Creatinine 0.7. Initial lactic acid 2.8 currently 1.7. Initial blood cultures revealing Staphylococcus aureus. The patient was stating she had some edema and drainage from her right brachial IV site from her previous admission. She was just discharged home on 07/11/2021. She been initiated on vancomycin and azithromycin along with Zosyn. She received 500 mL of fluid resuscitation. She is seen today the patient on the regular medical. She is currently awake and alert in no acute distress. She denies any worsening shortness of breath. Occasional cough with some blood-tinged sputum. She is maintaining O2 saturation in the 90s on 2 L/m per nasal cannula. She's afebrile. Her lipase was 148 yesterday. Down to 132 today. ProBNP 5450. Echocardiogram from previous admission revealed moderately impaired left ventricular systolic function with ejection fraction of 35-40%. She is continued on oral diuretics. She is anticoagulated with Eliquis. On 07/16/2021 patient seen in follow-up on medical surgical floor. She is resting comfortably in bed, denies any acute distress, on 2 L of oxygen patient satting 93-94%. Vital signs have been stable, occasional cough, at times with production of small amount of blood-tinged phlegm. Patient remains on Eliquis. CT angiogram of the chest showed no evidence of pulmonary embolism. And bilateral pulmonary atelectasis, and right middle lobe postobstructive atelectasis, with improvement in aeration compared the last admission. No abdominal pain, no nausea or vomiting, patient remains on small dose of prednisone 20 mg daily, patient was found to be bacteremic, so far blood cultures from 07/14/2021 and 07/15/2021 were positive, with preliminary results suggesting presumptive MRSA, sputum culture is pending. Patient is on vancomycin for antibiotic coverage. Patient requested to be put back on BiPAP support at bedtime because she feels short of breath at nighttime. Patient continues on home dose oral Lasix. She feels like her abdomen is bloated, but denies any abdominal pain. Labs have been reviewed, white blood cell count is improved, and is down to 14.5, electrolytes and renal profile are unremarkable. Pro-calcitonin level of increased and is up to 0.64 on today's labs. On 07/17/2021 patient seen in follow-up on medical surgical floor. Follow blood culture from 07/16/2021 is persistently positive for gram-positive cocci in clusters, and blood culture from 07/14/2021 resulted and methicillin-resistant staph aureus. Patient remains on vancomycin for antibiotic coverage, IV service is following. Today's labs have been reviewed, white blood cell count is improved and is down to 10.9, hemoglobin of 11.9, sodium is 138, potassium is 3.8, chloride is 101, CO2 32, BUN is 12, creatinine 0.57. No fever. No chills, no chest pain, no worsening dyspnea, patient is tolerating ambulation about the room, occasional cough, at times with some blood-tinged sputum, small amount. Continues on Eliquis 5 mg twice daily. No nausea vomiting or diarrhea, lipase level is 132. No abdominal pain. Tolerating oral intake. On 07/22/2021 patient seen in follow-up on selective care unit, she is status p ost successful extraction of the right atrial lead, successful extraction of the LV lead and RV ICD lead, and implantation of a new RV pacing lead in the RV apex using the right atrial lead, and implantation of a single-chamber pacemaker generator. Patient is resting in bed comfortably, does not appear to be in any acute distress, vital signs have been stable, she remains on 2 L of oxygen pulse ox is 97-98%, patient is afebrile. Patient remains on cefazolin and vancomycin for antibiotic coverage, ID service is following. She has had no acute events overnight. She denies any worsening dyspnea. Patient continues on Eliquis for anticoagulation for chronic A. fib. Objective - Vital Signs Vital signs: Vital Signs Temp 97.6 F 07/22/21 11:55 Pulse 50 L 07/22/21 11:55 Resp 18 07/22/21 11:55 BP 112/77 07/22/21 11:55 Pulse Ox 97 07/22/21 11:55 FiO2 35 07/22/21 04:08 Intake & Output 07/21/21 07/22/21 07/22/21 18:59 06:59 18:59 Intake Total 300 480 10 Balance 300 480 10 Weight 121.3 kg Intake: IV 300 10 Invasive Line 4 10 Oral 480 Other: Voiding Method Toilet Toilet # Voids 2 - Exam GENERAL EXAM: Alert, very pleasant, 45-year-old white female on 2 L of oxygen a pulse ox of 93% comfortable in no apparent distress. HEAD: Normocephalic/atraumatic. EYES: Normal reaction of pupils, equal size. Conjunctiva pink, sclera white. NOSE: Clear with pink turbinates. THROAT: No erythema or exudates. NECK: No masses, no JVD, no thyroid enlargement, no adenopathy. CHEST: No chest wall deformity. Symmetrical expansion. LUNGS: Equal air entry with no crackles, wheeze, rhonchi or dullness. CVS: Regular rate and rhythm, normal S1 and S2, no gallops, no murmurs, no rubs ABDOMEN: Soft, distended but nontender, but soft No hepatosplenomegaly, normal bowel sounds, no guarding or rigidity. EXTREMITIES: No clubbing, no edema, no cyanosis, 2+ pulses and upper and lower extremities. MUSCULOSKELETAL: Muscle strength and tone normal. SPINE: No scoliosis or deformity SKIN: No rashes CENTRAL NERVOUS SYSTEM: Alert and oriented -3. No focal deficits, tone is normal in all 4 extremities. PSYCHIATRIC: Alert and oriented -3. Appropriate affect. Intact judgment and insight. - Labs CBC & Chem 7: 07/21/21 15:10 07/22/21 07:18 Labs: Abnormal Lab Results - Last 24 Hours (Table) 07/21/21 07/21/21 07/21/21 Range/Units 15:10 15:10 16:11 Lymphocytes # 0.5 L (1.0-4.8) k/uL Carbon Dioxide 33 H (22-30) mmol/L Glucose 183 H (74-99) mg/dL POC Glucose (mg/dL) 200 H (75-99) mg/dL Calcium 8.2 L (8.4-10.2) mg/dL 07/21/21 07/22/21 07/22/21 Range/Units 19:54 06:06 07:18 Lymphocytes # (1.0-4.8) k/uL Carbon Dioxide (22-30) mmol/L Glucose 171 H (74-99) mg/dL POC Glucose (mg/dL) 244 H 237 H (75-99) mg/dL Calcium (8.4-10.2) mg/dL 07/22/21 Range/Units 11:55 Lymphocytes # (1.0-4.8) k/uL Carbon Dioxide (22-30) mmol/L Glucose (74-99) mg/dL POC Glucose (mg/dL) 227 H (75-99) mg/dL Calcium (8.4-10.2) mg/dL Microbiology - Last 24 Hours (Table) 07/19/21 06:11 Blood Culture Gram Stain - Final Blood Blood Culture - Final Methicillin resist S. aureus 07/18/21 06:44 Blood Culture Gram Stain - Final Blood Blood Culture - Final Methicillin resist S. aureus Assessment and Plan Plan: #1. Abnormal vegetation on ICD lead related to persistent bacteremia, status post extraction of the right atrial lead, LV lead, and RV ICD lead and implanta tion of RV pacing lead and single-chamber pacemaker generator on 07/22/2021 #2. Bacteremia, related to methicillin-resistant staph aureus, on vancomycin, #3. Lactic acidosis, improved #4. Recent hospitalization for acute pancreatitis that was thought to be drug induced, improved #5. 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 Recent hospitalization for acute pneumonia, difficulty breathing, right lung collapse, and acute hypoxic respiratory failure, status post bronchoscopy #7. Chronic A. fib on an requests #8. Diabetes mellitus type 2 #9. Hypertension #10. Hyperlipidemia #11. Previous history of myocardial infarction #12. Sleep apnea #13. 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 Multiple sclerosis #16. Permanent pacemaker implantation and AICD placement #17. ADD/ADHD #18. Anxiety and depression #19. History of cardiac sarcoidosis and secondary cardiomyopathy, most recent echocardiogram reveals impaired left ventricular systolic function with ejection fraction 35-40% #10. History of cardiac arrhythmias related to cardiac sarcoidosis and had undergone previous cardiac MRI and the patient has sinus syndrome and dual-chamb er pacemaker/AICD placed Plan: Patient underwent successful extraction of weeks, and implantation of a new single-chamber pacemaker generator today Continues on IV antibiotics Follow blood culture is persistently positive for presumptive MRSA ID service is following No worsening dyspnea We'll continue to follow blood cultures I have personally seen and examined the patient, performed the documentation and the assessment and plan as written. Number of minutes spent on the visit: [10] Time with Patient: Less than 30
[2021-07-22] MEDS: FLUCONAZOLE 150 MG TAB PO SCH (16:00)
[2021-07-22 16:26] LABS: Glucose,Whole Blood 234 mg/dL (75-99)
--- NOTE | 2021-07-22 17:21 | P.OBCN ---
History of Present Illness Consult date: 07/22/21 Reason for consult: other (Vaginal discharge) Chief complaint: Vaginal discharge History of present illness: This patient is a pleasant 45-year-old female who is admitted many days ago for non-gynecologic reasons. Patient apparently complained to the nurse of vaginal discharge and was noted to have a brownish type discharge on her pad. No examination has been done. Patient states that she has not had a menstrual c ycle in approximately 8 months but this is not a typical for her. She has been on multiple antibiotics she states as an outpatient over the last couple months and is currently on IV vancomycin. Patient has no other gynecologic concerns. Past Medical History Past Medical History: Atrial Fibrillation, Heart Failure, Diabetes Mellitus, GI Bleed, Hyperlipidemia, Hypertension, Myocardial Infarction (PA), Musculoskeletal Disorder, Pneumonia, Skin Disorder, Sleep Apnea/CPAP/BIPAP, Thyroid Disorder Additional Past Medical History / Comment(s): "Have had 6 months of walking Pneumonia". Hx steroid induced gluacoma(resolved). Neurosarcoidosis, sarcoidosis which caused heart problems. Eczema. Hx [place] Palsy with right facial droop. Hx concussion at age 12, has some learning disablity-problems with spelling. MSLazaro Graves Disease, " 7 auto immune diseases". DDD. CPAP use. "Weakness all over". Diarrhea and occasional blood in stool. "27 lesions on her brain". "INTERMITTENT GI BLEED" AND PROBLEMS SWALLOWING. Last Myocardial Infarction Date:: 11/15/20 History of Any Multi-Drug Resistant Organisms: MRSA Year Discovered:: 07/14/21 MDRO Source:: MRSA BLOOD Past Surgical History: AICD, Cholecystectomy, Heart Catheterization Additional Past Surgical History / Comment(s): VENOGRAM W/CINEFLUROSCOPY. Past Anesthesia/Blood Transfusion Reactions: No Reported Reaction Additional Past Anesthesia/Blood Transfusion Reaction / Comm: Claustrophobia. Type of Cardiac Device: Permanent Pacemaker, AICD Device Placement Date:: 03/01 Past Psychological History: ADD/ADHD, Anxiety, Depression Smoking Status: Never smoker Past Alcohol Use History: None Reported Past Drug Use History: None Reported - Past Family History Mother Family Medical History: AFIB, Deep Vein Thrombosis (DVT) Father Family Medical History: Osteoarthritis (OA), Thyroid Disorder Medications and Allergies Home Medications Medication Instructions Recorded Confirmed Type metFORMIN HCL [Glucophage] 1,000 mg PO BID-W/MEALS 11/10/17 07/14/21 History Ezetimibe [Zetia] 10 mg PO DAILY 10/06/18 07/14/21 History Apixaban [Eliquis] 5 mg PO BID #180 tab 02/15/19 07/14/21 Rx carvediloL [Coreg] 3.125 mg PO BID #180 tablet 02/16/19 07/14/21 Rx PARoxetine HCL 30 mg PO DAILY 06/23/19 07/14/21 History Artificial Tears-Hypromellose 1 drop BOTH EYES TID PRN 11/13/20 07/14/21 History [Artificial Tear Drops] Albuterol Inhaler [Ventolin Hfa 2 puff INHALATION RT-Q4H PRN 06/26/21 07/14/21 History Inhaler] Acetaminophen [Tylenol] 1,000 mg PO Q4-6H PRN 07/01/21 07/14/21 History Latanoprost/Pf [Latanoprost 0.005% 1 drop RIGHT EYE HS 07/01/21 07/14/21 History Eye Drop] Levothyroxine Sodium [Synthroid] 175 mcg PO DAILY 07/01/21 07/14/21 History Furosemide [Lasix] 40 mg PO DAILY #30 tablet 07/05/21 07/14/21 Rx glipiZIDE [Glucotrol] 5 mg PO AC-BRKFST #30 tab 07/05/21 07/14/21 Rx guaiFENesin-Coden 100-10MG/5ML 10 ml PO TID PRN #1000 ml 07/05/21 07/14/21 Rx [Robitussin AC] predniSONE 50 mg PO DAILY #30 tab 07/05/21 07/14/21 Rx HYDROcodone/APAP 5-325MG [Dix 1 tab PO Q6HR PRN 3 Days #12 tab 07/11/21 07/14/21 Rx 5-325] Fenofibrate [Lofibra] 160 mg PO DIRECTED 07/14/21 07/14/21 History Allergies Allergy/AdvReac Type Severity Reaction Status Date / Time Dtearny-OLT-IsZ Reductase AdvReac FACIAL Verified 07/14/21 16:26 Inhibitor NUMBNESS [Ptlllhr-Bvl-Evy Reductase Inhibitor] SEAFOOD Allergy Rash/Hives Uncoded 07/07/21 16:23 Exam Vital Signs Temp Pulse Resp BP BP BP Pulse Ox 07/22/21 16:11 98.6 F 50 L 16 102/61 98 07/22/21 11:55 97.6 F 50 L 18 112/77 97 07/22/21 09:18 96.8 F L 50 L 20 129/87 98 07/22/21 08:58 98 07/22/21 04:12 97.3 F L 50 L 15 108/78 98 07/22/21 04:08 07/22/21 00:00 97.8 F 53 L 15 114/79 98 07/21/21 23:41 07/21/21 22:10 07/21/21 20:00 97.9 F 52 L 15 125/89 99 FiO2 07/22/21 16:11 07/22/21 11:55 07/22/21 09:18 07/22/21 08:58 07/22/21 04:12 07/22/21 04:08 35 07/22/21 00:00 07/21/21 23:41 35 07/21/21 22:10 35 07/21/21 20:00 Intake and Output 07/22/21 07/22/21 07/22/21 06:59 14:59 22:59 Intake Total 10 500 Balance 10 500 Intake: IV 10 Invasive Line 4 10 Intake, IV Titration 500 Amount Sodium Chloride 0.9% 500 500 ml 500 ml @ 0 mls/hr IV . [facility] Rx#: [id number] Other: Voiding Method Toilet Toilet # Voids 2 3 Weight 121.3 kg Results Result Diagrams: 07/21/21 15:10 07/22/21 07:18 Abnormal Lab Results - Last 24 Hours (Table) 07/21/21 07/22/21 07/22/21 Range/Units 19:54 06:06 07:18 Glucose 171 H (74-99) mg/dL POC Glucose (mg/dL) 244 H 237 H (75-99) mg/dL 07/22/21 07/22/21 Range/Units 11:55 16:23 Glucose (74-99) mg/dL POC Glucose (mg/dL) 227 H 234 H (75-99) mg/dL Microbiology - Last 24 Hours (Table) 07/19/21 06:11 Blood Culture Gram Stain - Final Blood Blood Culture - Final Methicillin resist S. aureus Assessment and Plan Assessment: This is a pleasant 45-year-old female with vaginal discharge which most likely is consistent with yeast vaginitis. Given the patient's medical condition and current hospitalization a thorough gynecologic exam is not practical. My recommendations are to treat her with Diflucan 150 mg by mouth daily for 3 days. She may follow up with her primary physician after discharge and has continued problems certainly can be referred to our office. There is no evidence of an acute gynecologic problems at this time. (1) Vaginal discharge Current Visit: Yes Status: Acute Code(s): N89.8 - OTHER SPECIFIED NONINFLAMMATORY DISORDERS OF VAGINA SNOMED Code(s): 887737705
[2021-07-22 20:39] LABS: Glucose,Whole Blood 158 mg/dL (75-99)
[2021-07-22] MEDS: LATANOPROST 0.005% OPHTH DROPS 2.5 ML BTL RIGHT EYE SCH (21:38)
[2021-07-23] MEDS: VANCOMYCIN 1,750 MG in SODIUM CHLORIDE 0.9% 500 ML 500 ML IVPB SCH ×2 (01:10→10:21)
[2021-07-23 06:06] LABS: Glucose,Whole Blood 115 mg/dL (75-99)
[2021-07-23] MEDS: INSULIN ASPART (NovoLOG) 100 UNIT/ML VIAL SQ SCH ×4 (06:16→20:04)
[2021-07-23] MEDS: PANTOPRAZOLE 40 MG TABLET PO SCH ×2 (06:34→17:22)
--- NOTE | 2021-07-23 07:20 | P.PN ---
Subjective Progress Note Date: 07/22/21 Principal diagnosis: MRSA bacteremia Patient is a 45-year-old female with a past medical history significant for diabetes mellitus hypertension hyperlipidemia cardiomyopathy status post AICD placement acute pancreatitis anxiety depression patient recently underwent on bronchoscopy with a biopsy by Dr. Sow on 06/27/2021 and was noticed to have a nonnecrotizing granulomatous and chronic inflammation negative for malignancy, subsequently presented to hospital with the lateral chest pain shortness of breath and cough did have a fever and evidence of MRSA bacteremia. Patient did have persistent bacteremia for which the patient did have a TEODORO completed 07/20/2019 was suggestive of vegetation on the AICD lead, patient is status post extraction of the biventricular/AICD leads and placement of temporary transvenous pacer on 07/21/2021 On today's evaluation that is 07/22/2021, patient continues to be febrile, patient is breathing comfortably currently on room air, the patient did have occasional dry cough, the patient denies any nausea no vomiting no abdominal pain or diarrhea Objective - Vital Signs Vital signs: Vital Signs Temp 97.6 F 07/22/21 11:55 Pulse 50 L 07/22/21 11:55 Resp 18 07/22/21 11:55 BP 112/77 07/22/21 11:55 Pulse Ox 97 07/22/21 11:55 FiO2 35 07/22/21 04:08 Intake & Output 07/21/21 07/22/21 07/22/21 18:59 06:59 18:59 Intake Total 300 480 10 Balance 300 480 10 Weight 121.3 kg Intake: IV 300 10 Invasive Line 4 10 Oral 480 Other: Voiding Method Toilet Toilet # Voids 2 - Exam GENERAL DESCRIPTION: Middle-age female lying in bed in no distress RESPIRATORY SYSTEM: Unlabored breathing , decreased breath sounds at bases HEART: S1 S2 regular rate and rhythm , ABDOMEN: Soft , no tenderness EXTREMITIES: No edema feet - Labs CBC & Chem 7: 07/21/21 15:10 07/22/21 07:18 Labs: Abnormal Lab Results - Last 24 Hours (Table) 07/21/21 07/21/21 07/21/21 Range/Units 13:51 15:10 15:10 Lymphocytes # 0.5 L (1.0-4.8) k/uL Carbon Dioxide 33 H (22-30) mmol/L Glucose 183 H (74-99) mg/dL POC Glucose (mg/dL) 195 H (75-99) mg/dL Calcium 8.2 L (8.4-10.2) mg/dL 07/21/21 07/21/21 07/22/21 Range/Units 16:11 19:54 06:06 Lymphocytes # (1.0-4.8) k/uL Carbon Dioxide (22-30) mmol/L Glucose (74-99) mg/dL POC Glucose (mg/dL) 200 H 244 H 237 H (75-99) mg/dL Calcium (8.4-10.2) mg/dL 07/22/21 07/22/21 Range/Units 07:18 11:55 Lymphocytes # (1.0-4.8) k/uL Carbon Dioxide (22-30) mmol/L Glucose 171 H (74-99) mg/dL POC Glucose (mg/dL) 227 H (75-99) mg/dL Calcium (8.4-10.2) mg/dL Microbiology - Last 24 Hours (Table) 07/18/21 06:44 Blood Culture Gram Stain - Final Blood Blood Culture - Final Methicillin resist S. aureus 07/19/21 06:11 Blood Culture Gram Stain - Preliminary Blood Blood Culture - Preliminary Presumptive MRSA Assessment and Plan (1) Pneumonia Current Visit: Yes Status: Acute Code(s): J18.9 - PNEUMONIA, UNSPECIFIED ORGANISM SNOMED Code(s): 245496233 Plan: 1patient with MRSA bacteremia more likely secondary to the pneumonia in this patient presented to hospital with increasing shortness of breath hypoxemia with evidence of right middle lobe pneumonia, currently with no other obvious focus for this bacteremia in this patient with no skin lesion or joint swelling and abdominal was soft on clinical examination. 2 patient did have persistent bacteremia concerning for possible endovascular source patient did have TEODORO suggestive of vegetation on the AICD lead, patient is status post removal of the AICD lead on 07/21/2021 3patient to continue with vancomycin pharmacy to dose and will check blood culture daily to document clearance of bacteremia Time with Patient: Less than 30
[2021-07-23] MEDS ORDERED: VANCOMYCIN TROUGH DUE 1 EACH MISC MISCELLANE ONE (08:30)
[2021-07-23] MEDS: FUROSEMIDE 10 MG/ML 4 ML VIAL IV SCH (08:34)
[2021-07-23] MEDS: ALBUTEROL HFA INHALER INHALATION PRN ×2 (08:34→12:00)
[2021-07-23] MEDS: EZETIMIBE 10 MG TAB PO SCH (08:34)
[2021-07-23] MEDS: predniSONE 20 MG TAB PO SCH (08:34)
[2021-07-23] MEDS: carvediloL 3.125 MG TAB PO SCH ×2 (08:34→20:03)
[2021-07-23] MEDS: APIXABAN 5 MG TAB PO SCH ×2 (08:34→20:03)
[2021-07-23] MEDS: LEVOTHYROXINE 88 MCG TAB PO SCH (08:34)
[2021-07-23] MEDS: PARoxetine 10 MG TAB PO SCH (08:35)
[2021-07-23] MEDS: SODIUM CHLORIDE 0.9% 1,000 ML IV SCH (08:35)
[2021-07-23] MEDS: FLUCONAZOLE 150 MG TAB PO SCH (08:36)
--- NOTE | 2021-07-23 09:00 | P.PN ---
Subjective Progress Note Date: 07/23/21 Patient is doing well today, no new complaints. BCx drawn 07/21 are NGTD thus far. Ongoing IV vancomycin. Started on fluconazole by partition assembler for 3 days for vaginal yeast infection. Gen: awake, alert HEENT: normocephalic, atraumatic, good hearing acuity, moist mucous membranes Resp: good air exchange, breathing comfortably with no accessory muscle use CVS: good distal perfusion x 4, GI: soft, NTTP, ND : no SPT, no CVAT, reyes catheter not present MSK: no pitting edema, no clubbing Neuro: non-focal, moving all extremities Psych: cooperative, euthymic mood Assessment/plan: MRSA bacteremia overall continue IV antibiotics as per infectious disease Repeat blood cultures daily til clearance Patient started on vancomycin Initially was on azithromycin and Zosyn that are now discontinued We'll check echocardiogram, TEODORO - infected right atrial ICD lead -now s/p BiV lead extraction, new RV lead placement, new generator placement by EP Infection disease consulted Sarcoidosis with pulmonary, cardiac involvement Stable, continue home dose of prednisone Pulmonary medicine following Chronic CHF with EF 35-50% status post AICD placement Continue Coreg, continue Lasix Not on AZEB inhibitor Morbid obeisty with BM 43.6 and obstructive sleep apnea Recommend structured outpatient weight loss. Continue CPAP Anxiety and depression Continue Paxil Patient is requesting for Xanax as needed, discussed that in the long run she will benefit from psychiatric rest follow-up and careful titration of regimen for her anxiety and depression Recent pancreatitis Reported abdominal discomfort with fluid Check lipase, advance diet slowly as tolerated Atrial fibrillation Continue Coreg and Eliquis Insomnia Continue melatonin DM 2 with hyperglycemia Hold oral hypoglycemic Hemoglobin is 7.3 Continues on sliding scale Dyslipidemia Cont fenofibrate, zetia Hypothyroidism Cont levothyroxine CODE STATUS: Full code DVT prophylaxis: Lovenox Dispo Plan: Pending hospital course, likely back to home to be determined Objective - Vital Signs Vital signs: Vital Signs Temp 97.7 F 07/23/21 04:00 Pulse 52 L 07/23/21 04:00 Resp 15 07/23/21 04:00 BP 110/77 07/23/21 04:00 Pulse Ox 99 07/23/21 04:00 FiO2 35 07/23/21 03:51 Intake & Output 07/22/21 07/23/21 07/23/21 18:59 06:59 18:59 Intake Total 510 Balance 510 Weight 120.8 kg Intake: IV 10 Invasive Line 4 10 Intake, IV Titration 500 Amount Sodium Chloride 0.9% 500 500 ml 500 ml @ 0 mls/hr IV . [facility] Rx#: [id number] Other: Voiding Method Toilet Toilet # Voids 3 2 - Labs CBC & Chem 7: 07/21/21 15:10 07/22/21 07:18 Labs: Abnormal Lab Results - Last 24 Hours (Table) 07/22/21 07/22/21 07/22/21 Range/Units 11:55 16:23 20:37 POC Glucose (mg/dL) 227 H 234 H 158 H (75-99) mg/dL 07/23/21 Range/Units 06:04 POC Glucose (mg/dL) 115 H (75-99) mg/dL Microbiology - Last 24 Hours (Table) 07/21/21 15:10 Blood Culture - Preliminary Blood No Growth after 24 hours 07/19/21 06:11 Blood Culture Gram Stain - Final Blood Blood Culture - Final Methicillin resist S. aureus
[2021-07-23 10:06] LABS: Basophils % (A) 0 %; Eosinophils # (A) 0.1 k/uL (0-0.7); Eosinophils % (A) 2 %; HGB 12.1 gm/dL (11.4-16.0); Hypochromasia Slight; Lymphocytes % (A) 12 %; MCH 28.5 pg (25.0-35.0); MCV 92.1 fL (80.0-100.0); Mean Platelet Volume 9.9; Monocytes # (A) 0.3 k/uL (0-1.0); Monocytes % (A) 4 %; Neutrophils # (A) 6.5 k/uL (1.3-7.7); Neutrophils % (A) 81 %; Platelet Count 155 k/uL (150-450); RBC 4.23 m/uL (3.80-5.40); RDW 14.5 % (11.5-15.5)
[2021-07-23 10:29] LABS: African American GFR (CKD) >90 (>60 ml/min/1.73 sqM); Anion Gap 6 mmol/L; Blood Urea Nitrogen 15 mg/dL (7-17); Calcium 8.7 mg/dL (8.4-10.2); Carbon Dioxide 33 mmol/L (22-30); Chloride 99 mmol/L (98-107); Glucose 150 mg/dL (74-99); Magnesium 1.7 mg/dL (1.6-2.3); Non-African American GFR(CKD) >90 (>60 ml/min/1.73 sqM); Potassium 3.8 mmol/L (3.5-5.1); Sodium 138 mmol/L (137-145)
[2021-07-23 12:47] LABS: Glucose,Whole Blood 160 mg/dL (75-99)
--- NOTE | 2021-07-23 13:08 | P.PN ---
Subjective Progress Note Date: 07/23/21 HISTORY OF PRESENT ILLNESS: This is a 45 year old female with a past medical history significant for cardiomyopathy with AICD implantation, paroxysmal atrial fibrillation on anticoagulation with Eliquis, diabetes, hypertension, hyperlipidemia, multiple sclerosis, and cardiac sarcoidosis. Patient follows in the office with Dr. Hinojosa. We have been asked to see the patient in consultation for TEODORO. Patient examined at the bedside. Patient denies chest pain or pressure. She currently denies shortness of breath. Vital signs are stable. Patient is receiving antibiotics per infectious disease. * EKG reveals paced rhythm with underlying atrial flutter * Chest xray right lower lobe pneumonia which is slightly improved compared to old exam. No heart failure seen. * Laboratory data: W BC 10.36. Hemoglobin 12.2. Platelet count 111. Sodium 142. Potassium 3.4. BUN 11. Creatinine 0.7. * Current home cardiac medications include Eliquis 5 mg twice a day, that he attend milligrams daily, carvedilol 3.125 mg twice a day * Echocardiogram obtained in April 2020 revealed ejection fraction 40-45%. Mild mitral regurgitation. Mild tricuspid regurgitation. * Repeat echocardiogram performed in November 2020 revealed ejection fraction 50- 55%, trace to mild MR, mild TR, and moderate pulmonary hypertension * Repeat echocardiogram performed in June 2021 revealed ejection fraction 35-40%. Valves were difficult to see. * Patient underwent cardiac catheterization in November 2020 revealing normal coronary arteries 07/22/2021 Patient is status post TEODORO revealing vegetation. She is status post extraction of right atrial lead, LV lead, and RV ICD lead and implantation of new RV pacing lead in the RV apex and implantation of signal chamber pacemaker generator in the pocket. Telemetry reveals paced rhythm with underlying atrial flutter. Patient denies chest pain or pressure. She denies shortness of breath. Vital signs are stable. 07/23/2021 Patient examined this morning. Denies chest pain or pressure. Denies SOB. Vital signs stable. Most recent blood cultures are negative thus far. She remains on IV antibiotics. PHYSICAL EXAM: VITAL SIGNS: Reviewed. GENERAL: Well-developed in no acute distress. HEENT: Head is normocephalic. Pupils are equal, round. Sclerae anicteric. Mucous membranes of the mouth are moist. Neck supple. No JVD or thyromegaly LUNGS: Respirations even and unlabored. Lungs diminished to auscultation bilaterally. HEART: Irregular rate and rhythm. S1 and S2 heard. ABDOMEN: Soft. Nondistended. Nontender. EXTREMITIES: Normal range of motion. No clubbing or cyanosis. Peripheral pulses intact. 2+ lower extremity edema NEUROLOGIC: Awake and alert. Oriented x 3. ASSESSMENT: MRSA bacteremia, status post TEODORO revealing vegetation Status post extraction of right atrial lead, LV lead, and RV ICD lead and implantation of new RV pacing lead in the RV apex and implantation of signal ekaterina mber pacemaker generator in the pocket Recent hospitalization for acute pneumonia and acute hypoxic respiratory failure, status post bronchoscopy Nonischemic cardiomyopathy with previous AICD History of complete heart block Paroxysmal atrial fibrillation/typical atrial flutter on anticoagulation with Eliquis Pulmonary and cardiac sarcoidosis Hypertension Hyperlipidemia Diabetes mellitus PLAN: Continue current cardiac medications Continue antibiotics per infectious disease Patient will require eventual right sided AICD when bacteremia resolves Further recommendations pending patient course Nurse practitioner note has been reviewed by physician. Signing provider agrees with the documented findings, assessment, and plan of care. Objective - Vital Signs Vital signs: Vital Signs Temp 98.4 F 07/23/21 11:26 Pulse 48 L 07/23/21 11:26 Resp 20 07/23/21 11:26 BP 103/64 07/23/21 11:26 Pulse Ox 96 07/23/21 11:26 FiO2 35 07/23/21 03:51 Intake & Output 07/22/21 07/23/21 07/23/21 18:59 06:59 18:59 Intake Total 510 Balance 510 Weight 120.8 kg Intake: IV 10 Invasive Line 4 10 Intake, IV Titration 500 Amount Sodium Chloride 0.9% 500 500 ml 500 ml @ 0 mls/hr IV . [facility] Rx#: [id number] Other: Voiding Method Toilet Toilet # Voids 3 2 - Labs CBC & Chem 7: 07/23/21 09:21 07/23/21 09:21 Labs: Abnormal Lab Results - Last 24 Hours (Table) 07/22/21 07/22/21 07/23/21 Range/Units 16:23 20:37 06:04 Carbon Dioxide (22-30) mmol/L Glucose (74-99) mg/dL POC Glucose (mg/dL) 234 H 158 H 115 H (75-99) mg/dL 07/23/21 07/23/21 Range/Units 09:21 12:46 Carbon Dioxide 33 H (22-30) mmol/L Glucose 150 H (74-99) mg/dL POC Glucose (mg/dL) 160 H (75-99) mg/dL Microbiology - Last 24 Hours (Table) 07/22/21 07:18 Blood Culture - Preliminary Blood No Growth after 24 hours 07/21/21 15:10 Blood Culture - Preliminary Blood No Growth after 24 hours 07/19/21 06:11 Blood Culture Gram Stain - Final Blood Blood Culture - Final Methicillin resist S. aureus
--- NOTE | 2021-07-23 13:44 | P.PN ---
Subjective Progress Note Date: 07/23/21 Principal diagnosis: Bacteremia Physical very pleasant 45-year-old female patient with a known history of previous admission for acute pancreatitis, atrial fibrillation, diabetes m ellitus, GI bleeding, hypertension, hyperlipidemia, cardiomyopathy status post AICD placement, anxiety/depression. 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 She had undergone bronchoscopy with biopsies on 06/27/[address] Sow. She was found to have confluent nonnecrotizing granulomas and chronic inflammation. Negative for malignancy. The right middle lobe collapse. She is on an antibiotic and prednisone 50 mg daily. She presented to the emergency room again yesterday with complaints of abdominal discomfort that felt similar to her previous pancreatitis. She did develop anxiety with shortness of breath. She had another CT angiogram that revealed no evidence of pulmonary embolism. There is bilateral pulmonary atelectasis mainly in the right middle lobe consistent with postobstructive atelectasis however it is improved compared to previous. White count 14.5. Hemoglobin 13.2. Platelets 121. Sodium 136. Potassium 4.6. Bicarb 20. BUN 16. Creatinine 0.7. Initial lactic acid 2.8 currently 1.7. Initial blood cultures revealing Staphylococcus aureus. The patient was stating she had some edema and drainage from her right brachial IV site from her previous admission. She was just discharged home on 07/11/2021. She been initiated on vancomycin and azithromycin along with Zosyn. She received 500 mL of fluid resuscitation. She is seen today the patient on the regular medical. She is currently awake and alert in no acute distress. She denies any worsening shortness of breath. Occasional cough with some blood-tinged sputum. She is maintaining O2 saturation in the 90s on 2 L/m per nasal cannula. She's afebrile. Her lipase was 148 yesterday. Down to 132 today. ProBNP 5450. Echocardiogram from previous admission revealed moderately impaired left ventricular systolic function with ejection fraction of 35-40%. She is continued on oral diuretics. She is anticoagulated with Eliquis. On 07/16/2021 patient seen in follow-up on medical surgical floor. She is resting comfortably in bed, denies any acute distress, on 2 L of oxygen patient satting 93-94%. Vital signs have been stable, occasional cough, at times with production of small amount of blood-tinged phlegm. Patient remains on Eliquis. CT angiogram of the chest showed no evidence of pulmonary embolism. And bilateral pulmonary atelectasis, and right middle lobe postobstructive atelectasis, with improvement in aeration compared the last admission. No abdominal pain, no nausea or vomiting, patient remains on small dose of prednisone 20 mg daily, patient was found to be bacteremic, so far blood cultures from 07/14/2021 and 07/15/2021 were positive, with preliminary results suggesting presumptive MRSA, sputum culture is pending. Patient is on vancomycin for antibiotic coverage. Patient requested to be put back on BiPAP support at bedtime because she feels short of breath at nighttime. Patient continues on home dose oral Lasix. She feels like her abdomen is bloated, but denies any abdominal pain. Labs have been reviewed, white blood cell count is improved, and is down to 14.5, electrolytes and renal profile are unremarkable. Pro-calcitonin level of increased and is up to 0.64 on today's labs. On 07/17/2021 patient seen in follow-up on medical surgical floor. Follow blood culture from 07/16/2021 is persistently positive for gram-positive cocci in clusters, and blood culture from 07/14/2021 resulted and methicillin-resistant staph aureus. Patient remains on vancomycin for antibiotic coverage, IV service is following. Today's labs have been reviewed, white blood cell count is improved and is down to 10.9, hemoglobin of 11.9, sodium is 138, potassium is 3.8, chloride is 101, CO2 32, BUN is 12, creatinine 0.57. No fever. No chills, no chest pain, no worsening dyspnea, patient is tolerating ambulation about the room, occasional cough, at times with some blood-tinged sputum, small amount. Continues on Eliquis 5 mg twice daily. No nausea vomiting or diarrhea, lipase level is 132. No abdominal pain. Tolerating oral intake. On 07/22/2021 patient seen in follow-up on selective care unit, she is status p ost successful extraction of the right atrial lead, successful extraction of the LV lead and RV ICD lead, and implantation of a new RV pacing lead in the RV apex using the right atrial lead, and implantation of a single-chamber pacemaker generator. Patient is resting in bed comfortably, does not appear to be in any acute distress, vital signs have been stable, she remains on 2 L of oxygen pulse ox is 97-98%, patient is afebrile. Patient remains on cefazolin and vancomycin for antibiotic coverage, ID service is following. She has had no acute events overnight. She denies any worsening dyspnea. Patient continues on Eliquis for anticoagulation for chronic A. fib. On 07/23/2021 patient seen in follow-up on selective care unit. Patient is awake and alert, in no acute distress, she status post pacemaker AICD lead removal and placement of a new RV pacing lead, and implantation of a single- chamber pacemaker generator yesterday. She is breathing comfortably, cooperative chest discomfort other than incisional pain in the left upper chest which has some swelling, but the site is a bit tight but no definite evidence of hematoma. Afebrile. Follow-up blood cultures sent on 07/21/2021 and 07/22/2021 have shown no growth as far. Patient currently remains on Diflucan, and vancomycin, she remains on small dose prednisone 20 mg daily, she remains on oral Eliquis. Doing well, ID service is following, case discussed with ID service. Patient denies any worsening dyspnea hypoxia, cough or congestion. She is maintaining stable to saturations on room air. Objective - Vital Signs Vital signs: Vital Signs Temp 98.4 F 07/23/21 11:26 Pulse 48 L 07/23/21 11:26 Resp 20 07/23/21 11:26 BP 103/64 07/23/21 11:26 Pulse Ox 96 07/23/21 11:26 FiO2 35 07/23/21 03:51 Intake & Output 07/22/21 07/23/21 07/23/21 18:59 06:59 18:59 Intake Total 510 Balance 510 Weight 120.8 kg Intake: IV 10 Invasive Line 4 10 Intake, IV Titration 500 Amount Sodium Chloride 0.9% 500 500 ml 500 ml @ 0 mls/hr IV . [facility] Rx#: [id number] Other: Voiding Method Toilet Toilet # Voids 3 2 - Exam GENERAL EXAM: Alert, very pleasant, 45-year-old white female on 2 L of oxygen a pulse ox of 93% comfortable in no apparent distress. HEAD: Normocephalic/atraumatic. EYES: Normal reaction of pupils, equal size. Conjunctiva pink, sclera white. NOSE: Clear with pink turbinates. THROAT: No erythema or exudates. NECK: No masses, no JVD, no thyroid enlargement, no adenopathy. CHEST: No chest wall deformity. Symmetrical expansion. LUNGS: Equal air entry with no crackles, wheeze, rhonchi or dullness. CVS: Regular rate and rhythm, normal S1 and S2, no gallops, no murmurs, no rubs ABDOMEN: Soft, distended but nontender, but soft No hepatosplenomegaly, normal bowel sounds, no guarding or rigidity. EXTREMITIES: No clubbing, no edema, no cyanosis, 2+ pulses and upper and lower extremities. MUSCULOSKELETAL: Muscle strength and tone normal. SPINE: No scoliosis or deformity SKIN: No rashes CENTRAL NERVOUS SYSTEM: Alert and oriented -3. No focal deficits, tone is normal in all 4 extremities. PSYCHIATRIC: Alert and oriented -3. Appropriate affect. Intact judgment and insight. - Labs CBC & Chem 7: 07/23/21 09:21 07/23/21 09:21 Labs: Abnormal Lab Results - Last 24 Hours (Table) 07/22/21 07/22/21 07/23/21 Range/Units 16:23 20:37 06:04 Carbon Dioxide (22-30) mmol/L Glucose (74-99) mg/dL POC Glucose (mg/dL) 234 H 158 H 115 H (75-99) mg/dL 07/23/21 07/23/21 Range/Units 09:21 12:46 Carbon Dioxide 33 H (22-30) mmol/L Glucose 150 H (74-99) mg/dL POC Glucose (mg/dL) 160 H (75-99) mg/dL Microbiology - Last 24 Hours (Table) 07/22/21 07:18 Blood Culture - Preliminary Blood No Growth after 24 hours 07/21/21 15:10 Blood Culture - Preliminary Blood No Growth after 24 hours 07/19/21 06:11 Blood Culture Gram Stain - Final Blood Blood Culture - Final Methicillin resist S. aureus Assessment and Plan Plan: #1. Abnormal vegetation on ICD lead related to persistent bacteremia, status post extraction of the right atrial lead, LV lead, and RV ICD lead and imp lantation of RV pacing lead and single-chamber pacemaker generator on 07/22/2021 #2. Bacteremia, related to methicillin-resistant staph aureus, on vancomycin, #3. Lactic acidosis, improved #4. Recent hospitalization for acute pancreatitis that was thought to be drug induced, improved #5. 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 Recent hospitalization for acute pneumonia, difficulty breathing, right lung collapse, and acute hypoxic respiratory failure, status post bronchoscopy #7. Chronic A. fib on an requests #8. Diabetes mellitus type 2 #9. Hypertension #10. Hyperlipidemia #11. Previous history of myocardial infarction #12. Sleep apnea #13. 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 Multiple sclerosis #16. Permanent pacemaker implantation and AICD placement #17. ADD/ADHD #18. Anxiety and depression #19. History of cardiac sarcoidosis and secondary cardiomyopathy, most recent echocardiogram reveals impaired left ventricular systolic function with ejection fraction 35-40% #10. History of cardiac arrhythmias related to cardiac sarcoidosis and had undergone previous cardiac MRI and the patient has sinus syndrome and dual- chamber pacemaker/AICD placed Plan: No worsening dyspnea or hypoxic, vital signs are stable Continue antibiotics per ID service recommendations Blood cultures from 07/22/19 22 and 07/22/2021 have shown no growth thus far Follow blood cultures have been ordered for today We'll continue to follow Patient will likely need a PICC line and IV antibiotics, per infectious disease service I have personally seen and examined the patient, performed the documentation and the assessment and plan as written. Number of minutes spent on the visit: [10] Time with Patient: Less than 30
[2021-07-23 17:19] LABS: Glucose,Whole Blood 251 mg/dL (75-99)
[2021-07-23 19:56] LABS: Glucose,Whole Blood 169 mg/dL (75-99)
[2021-07-23] MEDS: ACETAMINOPHEN TAB 325 MG TAB PO PRN (20:03)
[2021-07-23] MEDS: LATANOPROST 0.005% OPHTH DROPS 2.5 ML BTL RIGHT EYE SCH (20:04)
[2021-07-23] MEDS: VANCOMYCIN 2,000 MG in SODIUM CHLORIDE 0.9% 500 ML 500 ML IVPB SCH (20:04)
--- NOTE | 2021-07-23 22:55 | P.PN ---
Subjective Progress Note Date: 07/23/21 Principal diagnosis: MRSA bacteremia Patient is a 45-year-old female with a past medical history significant for diabetes mellitus hypertension hyperlipidemia cardiomyopathy status post AICD placement acute pancreatitis anxiety depression patient recently underwent on bronchoscopy with a biopsy by Dr. Sow on 06/27/2021 and was noticed to have a nonnecrotizing granulomatous and chronic inflammation negative for malignancy, subsequently presented to hospital with the lateral chest pain shortness of breath and cough did have a fever and evidence of MRSA bacteremia. Patient did have persistent bacteremia for which the patient did have a TEODORO completed 07/20/2019 was suggestive of vegetation on the AICD lead, patient is status post extraction of the biventricular/AICD leads and placement of temporary transvenous pacer on 07/21/2021 On today's evaluation that is 07/23/2021, patient denies any fever or chills, patient is breathing comfortably currently on room air, the patient denies any worsening cough or sputum production, the patient denies any nausea no vomiting no abdominal pain or diarrhea Objective - Vital Signs Vital signs: Vital Signs Temp 98.4 F 07/23/21 11:26 Pulse 48 L 07/23/21 11:26 Resp 20 07/23/21 11:26 BP 103/64 07/23/21 11:26 Pulse Ox 96 07/23/21 11:26 FiO2 35 07/23/21 03:51 Intake & Output 07/22/21 07/23/21 07/23/21 18:59 06:59 18:59 Intake Total 510 Balance 510 Weight 120.8 kg Intake: IV 10 Invasive Line 4 10 Intake, IV Titration 500 Amount Sodium Chloride 0.9% 500 500 ml 500 ml @ 0 mls/hr IV . [facility] Rx#: [id number] Other: Voiding Method Toilet Toilet # Voids 3 2 - Exam GENERAL DESCRIPTION: Middle-age female lying in bed in no distress RESPIRATORY SYSTEM: Unlabored breathing , decreased breath sounds at bases HEART: S1 S2 regular rate and rhythm , ABDOMEN: Soft , no tenderness EXTREMITIES: No edema feet - Labs CBC & Chem 7: 07/23/21 09:21 07/23/21 09:21 Labs: Abnormal Lab Results - Last 24 Hours (Table) 07/22/21 07/22/21 07/23/21 Range/Units 16:23 20:37 06:04 Carbon Dioxide (22-30) mmol/L Glucose (74-99) mg/dL POC Glucose (mg/dL) 234 H 158 H 115 H (75-99) mg/dL 07/23/21 Range/Units 09:21 Carbon Dioxide 33 H (22-30) mmol/L Glucose 150 H (74-99) mg/dL POC Glucose (mg/dL) (75-99) mg/dL Microbiology - Last 24 Hours (Table) 07/22/21 07:18 Blood Culture - Preliminary Blood No Growth after 24 hours 07/21/21 15:10 Blood Culture - Preliminary Blood No Growth after 24 hours 07/19/21 06:11 Blood Culture Gram Stain - Final Blood Blood Culture - Final Methicillin resist S. aureus Assessment and Plan (1) Pneumonia Current Visit: Yes Status: Acute Code(s): J18.9 - PNEUMONIA, UNSPECIFIED ORGANISM SNOMED Code(s): 552037086 Plan: 1patient with MRSA bacteremia more likely secondary to the pneumonia in this patient presented to hospital with increasing shortness of breath hypoxemia with evidence of right middle lobe pneumonia, currently with no other obvious focus for this bacteremia in this patient with no skin lesion or joint swelling and abdominal was soft on clinical examination. 2 patient did have persistent bacteremia concerning for possible endovascular source patient did have TEODORO suggestive of vegetation on the AICD lead, patient is status post removal of the AICD lead on 07/21/2021 3patient blood culture 07/21 2021 as well as 07/22/2021 are so far negative. If the remains to be negative at 72 hour patient will get a PICC line for outpatient IV vancomycin 4patient to to continue with vancomycin pharmacy to dose and monitor kidney function closely Time with Patient: Less than 30
[2021-07-24 06:32] LABS: Glucose,Whole Blood 97 mg/dL (75-99)
[2021-07-24] MEDS: INSULIN ASPART (NovoLOG) 100 UNIT/ML VIAL SQ SCH ×4 (06:36→19:52)
[2021-07-24] MEDS: PANTOPRAZOLE 40 MG TABLET PO SCH ×2 (06:39→17:00)
[2021-07-24 08:00] LABS: Basophils % (A) 0 %; Eosinophils # (A) 0.1 k/uL (0-0.7); Eosinophils % (A) 2 %; HCT 37.2 % (34.0-46.0); HGB 11.5 gm/dL (11.4-16.0); Hypochromasia Slight; Lymphocytes # (A) 1.1 k/uL (1.0-4.8); Lymphocytes % (A) 16 %; MCH 28.3 pg (25.0-35.0); MCV 91.3 fL (80.0-100.0); Mean Platelet Volume 8.9; Monocytes # (A) 0.4 k/uL (0-1.0); Monocytes % (A) 5 %; Neutrophils # (A) 5.2 k/uL (1.3-7.7); Neutrophils % (A) 76 %; Platelet Count 142 k/uL (150-450); RBC 4.07 m/uL (3.80-5.40); RDW 14.6 % (11.5-15.5); WBC 6.9 k/uL (3.8-10.6)
[2021-07-24 08:10] LABS: African American GFR (CKD) >90 (>60 ml/min/1.73 sqM); Anion Gap 4 mmol/L; Blood Urea Nitrogen 19 mg/dL (7-17); Calcium 8.6 mg/dL (8.4-10.2); Carbon Dioxide 34 mmol/L (22-30); Chloride 101 mmol/L (98-107); Glucose 112 mg/dL (74-99); Magnesium 1.7 mg/dL (1.6-2.3); Non-African American GFR(CKD) >90 (>60 ml/min/1.73 sqM); Sodium 139 mmol/L (137-145)
[2021-07-24] MEDS: VANCOMYCIN 2,000 MG in SODIUM CHLORIDE 0.9% 500 ML 500 ML IVPB SCH ×2 (09:09→20:51)
[2021-07-24] MEDS: PARoxetine 10 MG TAB PO SCH (09:10)
[2021-07-24] MEDS: FLUCONAZOLE 150 MG TAB PO SCH (09:10)
[2021-07-24] MEDS: FUROSEMIDE 10 MG/ML 4 ML VIAL IV SCH (09:10)
[2021-07-24] MEDS: EZETIMIBE 10 MG TAB PO SCH (09:10)
[2021-07-24] MEDS: predniSONE 20 MG TAB PO SCH (09:10)
[2021-07-24] MEDS: carvediloL 3.125 MG TAB PO SCH ×2 (09:10→19:52)
[2021-07-24] MEDS: APIXABAN 5 MG TAB PO SCH ×2 (09:10→19:52)
[2021-07-24] MEDS: ACETAMINOPHEN TAB 325 MG TAB PO PRN ×2 (09:14→22:11)
[2021-07-24] MEDS: LEVOTHYROXINE 88 MCG TAB PO SCH (09:14)
--- NOTE | 2021-07-24 09:37 | P.PN ---
Subjective Progress Note Date: 07/24/21 Patient is doing well today, no new complaints. BCx drawn 07/21 are NGTD thus far. Ongoing IV vancomycin. Started on fluconazole by credit union teller for 3 days for vaginal yeast infection. PICC line today/tomorrow AM with plan for d/c tomorrow. Gen: awake, alert HEENT: normocephalic, atraumatic, good hearing acuity, moist mucous membranes Resp: good air exchange, breathing comfortably with no accessory muscle use CVS: good distal perfusion x 4, GI: soft, NTTP, ND : no SPT, no CVAT, reyes catheter not present MSK: no pitting edema, no clubbing Neuro: non-focal, moving all extremities Psych: cooperative, euthymic mood Assessment/plan: MRSA bacteremia overall continue IV antibiotics as per infectious disease Repeat blood cultures daily til clearance Patient started on vancomycin Initially was on azithromycin and Zosyn that are now discontinued We'll check echocardiogram, TEODORO - infected right atrial ICD lead -now s/p BiV lead extraction, new RV lead placement, new generator placement by EP Infection disease consulted Sarcoidosis with pulmonary, cardiac involvement Stable, continue home dose of prednisone Pulmonary medicine following Chronic CHF with EF 35-50% status post AICD placement Continue Coreg, continue Lasix Not on AZEB inhibitor Morbid obeisty with BM 43.6 and obstructive sleep apnea Recommend structured outpatient weight loss. Continue CPAP Anxiety and depression Continue Paxil Patient is requesting for Xanax as needed, discussed that in the long run she will benefit from psychiatric rest follow-up and careful titration of regimen for her anxiety and depression Recent pancreatitis Reported abdominal discomfort with fluid Check lipase, advance diet slowly as tolerated Atrial fibrillation Continue Coreg and Eliquis Insomnia Continue melatonin DM 2 with hyperglycemia Hold oral hypoglycemic Hemoglobin is 7.3 Continues on sliding scale Dyslipidemia Cont fenofibrate, zetia Hypothyroidism Cont levothyroxine CODE STATUS: Full code DVT prophylaxis: Lovenox Dispo Plan: Pending hospital course, likely back to home to be determined Objective - Vital Signs Vital signs: Vital Signs Temp 97.4 F L 07/24/21 04:00 Pulse 63 07/24/21 04:00 Resp 15 07/24/21 04:00 BP 107/71 07/24/21 04:00 Pulse Ox 99 07/24/21 04:00 FiO2 35 07/24/21 04:21 Intake & Output 07/23/21 07/24/21 07/24/21 18:59 06:59 18:59 Intake Total 927 Balance 927 Weight 122.8 kg Intake: Intake, IV Titration 500 Amount Vancomycin 2,000 mg In 500 Sodium Chloride 0.9% 500 ml 500 ml @ 167 mls/hr IVPB Q12HR [facility] Rx#: [id number] Oral 427 Other: Voiding Method Toilet # Voids 2 - Labs CBC & Chem 7: 07/24/21 07:35 07/24/21 07:35 Labs: Abnormal Lab Results - Last 24 Hours (Table) 07/23/21 07/23/21 07/23/21 Range/Units 09:21 12:46 17:17 Plt Count (150-450) k/uL Carbon Dioxide 33 H (22-30) mmol/L BUN (7-17) mg/dL Glucose 150 H (74-99) mg/dL POC Glucose (mg/dL) 160 H 251 H (75-99) mg/dL 07/23/21 07/24/21 07/24/21 Range/Units 19:55 07:35 07:35 Plt Count 142 L (150-450) k/uL Carbon Dioxide 34 H (22-30) mmol/L BUN 19 H (7-17) mg/dL Glucose 112 H (74-99) mg/dL POC Glucose (mg/dL) 169 H (75-99) mg/dL Microbiology - Last 24 Hours (Table) 07/21/21 15:10 Blood Culture - Preliminary Blood No Growth after 48 hours 07/22/21 07:18 Blood Culture - Preliminary Blood No Growth after 24 hours
[2021-07-24] MEDS: ALBUTEROL HFA INHALER INHALATION PRN ×3 (11:48→20:29)
[2021-07-24 12:30] LABS: Glucose,Whole Blood 184 mg/dL (75-99)
[2021-07-24] MEDS: SODIUM CHLORIDE 0.9% 1,000 ML IV SCH (12:50)
--- NOTE | 2021-07-24 13:37 | P.PN ---
Subjective Progress Note Date: 07/24/21 HISTORY OF PRESENT ILLNESS: This is a 45 year old female with a past medical history significant for cardiomyopathy with AICD implantation, paroxysmal atrial fibrillation on anticoagulation with Eliquis, diabetes, hypertension, hyperlipidemia, multiple sclerosis, and cardiac sarcoidosis. Patient follows in the office with Dr. Hinojosa. We have been asked to see the patient in consultation for TEODORO. Patient examined at the bedside. Patient denies chest pain or pressure. She currently denies shortness of breath. Vital signs are stable. Patient is receiving antibiotics per infectious disease. * EKG reveals paced rhythm with underlying atrial flutter * Chest xray right lower lobe pneumonia which is slightly improved compared to old exam. No heart failure seen. * Laboratory data: W BC 10.36. Hemoglobin 12.2. Platelet count 111. Sodium 142. Potassium 3.4. BUN 11. Creatinine 0.7. * Current home cardiac medications include Eliquis 5 mg twice a day, that he attend milligrams daily, carvedilol 3.125 mg twice a day * Echocardiogram obtained in April 2020 revealed ejection fraction 40-45%. Mild mitral regurgitation. Mild tricuspid regurgitation. * Repeat echocardiogram performed in November 2020 revealed ejection fraction 50- 55%, trace to mild MR, mild TR, and moderate pulmonary hypertension * Repeat echocardiogram performed in June 2021 revealed ejection fraction 35-40%. Valves were difficult to see. * Patient underwent cardiac catheterization in November 2020 revealing normal coronary arteries 07/22/2021 Patient is status post TEODORO revealing vegetation. She is status post extraction of right atrial lead, LV lead, and RV ICD lead and implantation of new RV pacing lead in the RV apex and implantation of signal chamber pacemaker generator in the pocket. Telemetry reveals paced rhythm with underlying atrial flutter. Patient denies chest pain or pressure. She denies shortness of breath. Vital signs are stable. 07/23/2021 Patient examined this morning. Denies chest pain or pressure. Denies SOB. Vital signs stable. Most recent blood cultures are negative thus far. She remains on IV antibiotics. 07/24/2021 Patient examined this morning. Denies chest pain or pressure. Denies SOB. She remains on IV antibiotics. Blood cultures from 07/21/21 remain negative. Vital signs are stable. PHYSICAL EXAM: VITAL SIGNS: Reviewed. GENERAL: Well-developed in no acute distress. HEENT: Head is normocephalic. Pupils are equal, round. Sclerae anicteric. Mucous membranes of the mouth are moist. Neck supple. No JVD or thyromegaly LUNGS: Respirations even and unlabored. Lungs diminished to auscultation bilaterally. HEART: Irregular rate and rhythm. S1 and S2 heard. ABDOMEN: Soft. Nondistended. Nontender. EXTREMITIES: Normal range of motion. No clubbing or cyanosis. Peripheral pulses intact. 1+ lower extremity edema NEUROLOGIC: Awake and alert. Oriented x 3. ASSESSMENT: MRSA bacteremia, status post TEODORO revealing vegetation Status post extraction of right atrial lead, LV lead, and RV ICD lead and implantation of new RV pacing lead in the RV apex and implantation of signal chamber pacemaker generator in the pocket Recent hospitalization for acute pneumonia and acute hypoxic respiratory ish lure, status post bronchoscopy Nonischemic cardiomyopathy with previous AICD History of complete heart block Paroxysmal atrial fibrillation/typical atrial flutter on anticoagulation with Eliquis Pulmonary and cardiac sarcoidosis Hypertension Hyperlipidemia Diabetes mellitus PLAN: Continue current cardiac medications Continue antibiotics per infectious disease Patient will require eventual right sided AICD when bacteremia resolves Further recommendations pending patient course Nurse practitioner note has been reviewed by physician. Signing provider agrees with the documented findings, assessment, and plan of care. Objective - Vital Signs Vital signs: Vital Signs Temp 97.7 F 07/24/21 08:00 Pulse 51 L 07/24/21 08:00 Resp 14 07/24/21 08:00 BP 117/73 07/24/21 08:00 Pulse Ox 94 L 07/24/21 08:00 FiO2 35 07/24/21 04:21 Intake & Output 07/23/21 07/24/21 07/24/21 18:59 06:59 18:59 Intake Total 927 500 Balance 927 500 Weight 122.8 kg Intake: Intake, IV Titration 500 500 Amount Vancomycin 2,000 mg In 500 500 Sodium Chloride 0.9% 500 ml 500 ml @ 167 mls/hr IVPB Q12HR [facility] Rx#: [id number] Oral 427 Other: Voiding Method Toilet Toilet # Voids 2 - Labs CBC & Chem 7: 07/24/21 07:35 07/24/21 07:35 Labs: Abnormal Lab Results - Last 24 Hours (Table) 07/23/21 07/23/21 07/24/21 Range/Units 17:17 19:55 07:35 Plt Count 142 L (150-450) k/uL Carbon Dioxide (22-30) mmol/L BUN (7-17) mg/dL Glucose (74-99) mg/dL POC Glucose (mg/dL) 251 H 169 H (75-99) mg/dL 07/24/21 07/24/21 Range/Units 07:35 12:28 Plt Count (150-450) k/uL Carbon Dioxide 34 H (22-30) mmol/L BUN 19 H (7-17) mg/dL Glucose 112 H (74-99) mg/dL POC Glucose (mg/dL) 184 H (75-99) mg/dL Microbiology - Last 24 Hours (Table) 07/23/21 09:21 Blood Culture - Preliminary Blood No Growth after 24 hours 07/22/21 07:18 Blood Culture - Preliminary Blood No Growth after 48 hours 07/21/21 15:10 Blood Culture - Preliminary Blood No Growth after 48 hours
[2021-07-24 16:32] LABS: Glucose,Whole Blood 271 mg/dL (70-110)
[2021-07-24 19:48] LABS: Glucose,Whole Blood 202 mg/dL (70-110)
[2021-07-24] MEDS: LATANOPROST 0.005% OPHTH DROPS 2.5 ML BTL RIGHT EYE SCH (19:53)
[2021-07-25 06:07] LABS: Glucose,Whole Blood 121 mg/dL (70-110)
[2021-07-25] MEDS: INSULIN ASPART (NovoLOG) 100 UNIT/ML VIAL SQ SCH ×4 (06:07→20:41)
[2021-07-25] MEDS: PANTOPRAZOLE 40 MG TABLET PO SCH ×2 (06:09→17:43)
[2021-07-25] MEDS ORDERED: VANCOMYCIN TROUGH DUE 1 EACH MISC MISCELLANE ONE (08:00)
--- NOTE | 2021-07-25 08:47 | P.PN ---
Subjective Progress Note Date: 07/24/21 Principal diagnosis: MRSA bacteremia Patient is a 45-year-old female with a past medical history significant for diabetes mellitus hypertension hyperlipidemia cardiomyopathy status post AICD placement acute pancreatitis anxiety depression patient recently underwent on bronchoscopy with a biopsy by Dr. Sow on 06/27/2021 and was noticed to have a nonnecrotizing granulomatous and chronic inflammation negative for malignancy, subsequently presented to hospital with the lateral chest pain shortness of breath and cough did have a fever and evidence of MRSA bacteremia. Patient did have persistent bacteremia for which the patient did have a TEODORO completed 07/20/2019 was suggestive of vegetation on the AICD lead, patient is status post extraction of the biventricular/AICD leads and placement of temporary transvenous pacer on 07/21/2021 On today's evaluation that is 07/24/2021, patient remains to be afebrile, patient is breathing comfortably on room air, the patient denies any any chest pain did have minimal cough, the patient denies any nausea no vomiting no abdominal pain or diarrhea Objective - Vital Signs Vital signs: Vital Signs Temp 97.4 F L 07/24/21 04:00 Pulse 63 07/24/21 04:00 Resp 15 07/24/21 04:00 BP 107/71 07/24/21 04:00 Pulse Ox 99 07/24/21 04:00 FiO2 35 07/24/21 04:21 Intake & Output 07/23/21 07/24/21 07/24/21 18:59 06:59 18:59 Intake Total 927 Balance 927 Weight 122.8 kg Intake: Intake, IV Titration 500 Amount Vancomycin 2,000 mg In 500 Sodium Chloride 0.9% 500 ml 500 ml @ 167 mls/hr IVPB Q12HR [facility] Rx#: [id number] Oral 427 Other: Voiding Method Toilet # Voids 2 - Exam GENERAL DESCRIPTION: Middle-age female lying in bed in no distress RESPIRATORY SYSTEM: Unlabored breathing , decreased breath sounds at bases HEART: S1 S2 regular rate and rhythm , ABDOMEN: Soft , no tenderness EXTREMITIES: No edema feet - Labs CBC & Chem 7: 07/24/21 07:35 07/24/21 07:35 Labs: Abnormal Lab Results - Last 24 Hours (Table) 07/23/21 07/23/21 07/24/21 Range/Units 17:17 19:55 07:35 Plt Count 142 L (150-450) k/uL Carbon Dioxide (22-30) mmol/L BUN (7-17) mg/dL Glucose (74-99) mg/dL POC Glucose (mg/dL) 251 H 169 H (75-99) mg/dL 07/24/21 07/24/21 Range/Units 07:35 12:28 Plt Count (150-450) k/uL Carbon Dioxide 34 H (22-30) mmol/L BUN 19 H (7-17) mg/dL Glucose 112 H (74-99) mg/dL POC Glucose (mg/dL) 184 H (75-99) mg/dL Microbiology - Last 24 Hours (Table) 07/23/21 09:21 Blood Culture - Preliminary Blood No Growth after 24 hours 07/22/21 07:18 Blood Culture - Preliminary Blood No Growth after 48 hours 07/21/21 15:10 Blood Culture - Preliminary Blood No Growth after 48 hours Assessment and Plan (1) Pneumonia Current Visit: Yes Status: Acute Code(s): J18.9 - PNEUMONIA, UNSPECIFIED ORGANISM SNOMED Code(s): 630526464 Plan: 1patient with MRSA bacteremia more likely secondary to the pneumonia in this patient presented to hospital with increasing shortness of breath hypoxemia with evidence of right middle lobe pneumonia, currently with no other obvious focus for this bacteremia in this patient with no skin lesion or joint swelling and a bdominal was soft on clinical examination. 2 patient did have persistent bacteremia concerning for possible endovascular source patient did have TEODORO suggestive of vegetation on the AICD lead, patient is status post removal of the AICD lead on 07/21/2021 3patient blood culture 2021 as well as 07/22/2021 are so far negative. If the remains to be negative by tomorrow a.m. patient will get a PICC line for outpatient IV vancomycin 4patient to continue with vancomycin pharmacy to dose and plan for 6 weeks of antibiotic therapy Time with Patient: Less than 30
[2021-07-25 09:20] LABS: African American GFR (CKD) >90 (>60 ml/min/1.73 sqM); Anion Gap 6 mmol/L; Blood Urea Nitrogen 21 mg/dL (7-17); Calcium 8.5 mg/dL (8.4-10.2); Carbon Dioxide 32 mmol/L (22-30); Chloride 99 mmol/L (98-107); Glucose 107 mg/dL (74-99); Non-African American GFR(CKD) >90 (>60 ml/min/1.73 sqM); Potassium 4.1 mmol/L (3.5-5.1); Sodium 137 mmol/L (137-145)
[2021-07-25] MEDS: predniSONE 20 MG TAB PO SCH (09:39)
[2021-07-25] MEDS: FUROSEMIDE 10 MG/ML 4 ML VIAL IV SCH (09:39)
[2021-07-25] MEDS: LEVOTHYROXINE 88 MCG TAB PO SCH (09:39)
[2021-07-25] MEDS: carvediloL 3.125 MG TAB PO SCH ×2 (09:39→20:41)
[2021-07-25] MEDS: EZETIMIBE 10 MG TAB PO SCH (09:40)
[2021-07-25] MEDS: PARoxetine 10 MG TAB PO SCH (09:40)
[2021-07-25] MEDS ORDERED: LIDOCAINE 1% INJ 10MG/ML (5 ML VIAL-PF) SQ ONE (10:21)
[2021-07-25] MEDS: VANCOMYCIN 2,000 MG in SODIUM CHLORIDE 0.9% 500 ML 500 ML IVPB SCH (11:21)
[2021-07-25] MEDS: APIXABAN 5 MG TAB PO SCH ×2 (11:22→20:40)
--- NOTE | 2021-07-25 11:33 | IR ---
EXAMINATION TYPE: IR cvc insert >=5 years DATE OF EXAM: 07/25/2021 COMPARISON: NONE CLINICAL HISTORY: Infection Needs long-term intravenous access for antibiotics. PROCEDURE: Hand hygiene obtained with soap and water and alcohol-based hand rub. After informed consent, the skin overlying the right basilic vein was localized with ultrasound and n oted to be compressible and patent. An ultrasound image was obtained and submitted on the patient's chart. The overlying skin was prepped and draped and Lidocaine was used for local anesthesia. A ski n farhat was made with a scalpel. Access was gained to the vein under ultrasound guidance with a 21 ga uge needle and a 0.018 inch wire was advanced. Access site was dilated with Peel-Away sheath and cat heter tailored to the appropriate length and advanced such that the distal tip is at the cavoatrial j unction. Spot image was obtained verifying placement. Catheter was fixed to the skin and a sterile dressing was placed following hemostasis. Catheter was aspirated and flushed with saline. Patient w as discharged in stable condition without complication.Maximal barrier technique is utilized. Ultras ound image is documented on the chart. Ultrasound used with sterile technique. Fluoro time and fluoroscopic images submitted to document procedure: 0.2 minutes fluoroscopy time, 21 intraoperative C-arm images document the procedure IMPRESSION: STATUS POST ULTRASOUND AND FLUOROSCOPIC GUIDED PICC LINE PLACEMENT, READY FOR USE. THIS PROCEDURE WAS PERFORMED BY THE UNDERSIGNED.
[2021-07-25 12:21] LABS: Glucose,Whole Blood 201 mg/dL (70-110)
--- NOTE | 2021-07-25 12:33 | P.PN ---
Subjective Progress Note Date: 07/25/21 Patient is seen resting comfortably in bed, getting ready to head down to the labeling strategist to receive her PICC line to be discharged on IV antibiotics. Will transition patient to oral Lasix and prepared for discharge. She denies chest pain or shortness of breath. Objective - Vital Signs Vital signs: Vital Signs Temp 97.9 F 07/25/21 08:00 Pulse 47 L 07/25/21 04:00 Resp 18 07/25/21 12:00 BP 116/67 07/25/21 12:00 Pulse Ox 95 07/25/21 12:00 FiO2 35 07/25/21 07:33 Intake & Output 07/24/21 07/25/21 07/25/21 18:59 06:59 18:59 Intake Total 900 500 Balance 900 500 Weight 122.8 kg 123.4 kg Intake: Intake, IV Titration 500 500 Amount Vancomycin 2,000 mg In 500 500 Sodium Chloride 0.9% 500 ml 500 ml @ 167 mls/hr IVPB Q12HR [facility] Rx#: [id number] Oral 400 Other: Voiding Method Toilet Toilet # Voids 1 - Exam PHYSICAL EXAM: VITAL SIGNS: Reviewed. GENERAL: Well-developed in no acute distress. HEENT: Head is normocephalic. Pupils are equal, round. Sclerae anicteric. Mucous membranes of the mouth are moist. NECK: Supple. No JVD or thyromegaly RESPIRATORY: Respirations even and unlabored. Lungs diminished to auscultation bilaterally. CARDIO: Regular rate and rhythm. S1 and S2 heard. No murmur or gallops. EXTREMITIES: Normal range of motion. No clubbing or cyanosis. Peripheral pulse s intact. Mild bilateral lower extremity edema NEURO: Orientated to person, time, mood is appropriate - Labs CBC & Chem 7: 07/24/21 07:35 07/25/21 08:33 Labs: Abnormal Lab Results - Last 24 Hours (Table) 07/24/21 07/24/21 07/24/21 Range/Units 12:28 16:31 19:46 Carbon Dioxide (22-30) mmol/L BUN (7-17) mg/dL Glucose (74-99) mg/dL POC Glucose (mg/dL) 184 H 271 H 202 H (75-99) mg/dL 07/25/21 07/25/21 07/25/21 Range/Units 06:05 08:33 12:19 Carbon Dioxide 32 H (22-30) mmol/L BUN 21 H (7-17) mg/dL Glucose 107 H (74-99) mg/dL POC Glucose (mg/dL) 121 H 201 H (75-99) mg/dL Microbiology - Last 24 Hours (Table) 07/23/21 09:21 Blood Culture - Preliminary Blood No Growth after 48 hours 07/22/21 07:18 Blood Culture - Preliminary Blood No Growth after 72 hours 07/21/21 15:10 Blood Culture - Preliminary Blood No Growth after 72 hours Assessment and Plan Assessment: MRSA bacteremia, status post TEODORO revealing vegetation Status post extraction of right atrial lead, LV lead, and RV ICD lead and implantation of new RV pacing lead in the RV apex and implantation of signal chamber pacemaker generator in the pocket Recent hospitalization for acute pneumonia and acute hypoxic respiratory failure, status post bronchoscopy Nonischemic cardiomyopathy with previous AICD History of complete heart block Paroxysmal atrial fibrillation/typical atrial flutter on anticoagulation with Eliquis Pulmonary and cardiac sarcoidosis Hypertension Hyperlipidemia Diabetes mellitus Plan: Continue current cardiac medications Continue antibiotics per infectious disease Patient will require eventual right sided AICD when bacteremia resolves Anticipated discharge The above impression and plan of care have been discussed and directed by the signing physician. Merle Mari, nurse practitioner, acting as scribe for si gning physician.
--- NOTE | 2021-07-25 14:17 | P.DS ---
Providers Date of admission: 07/14/21 15:45 Expected date of discharge: 07/25/21 Attending physician: Jacqueline Buchanan MD Consults: 07/14/21 15:45 Consult Physician Routine Consulting Provider: Valentín Sow Consult Reason/Comments: Pneumonia, hypoxia Do you want consulting provider notified?: Yes 07/15/21 14:36 Consult Physician Routine Consulting Provider: Abi Robbins Consult Reason/Comments: bacteremia Do you want consulting provider notified?: Yes 07/18/21 08:17 Consult Physician Routine Consulting Provider: Oleg Izaguirre Consult Reason/Comments: MRSA bacteremia, may need TEODORO Do you want consulting provider notified?: Yes 07/19/21 09:28 Consult Physician Routine Consulting Provider: Maury Medina Consult Reason/Comments: Vegetation on right atrial lead of pacemaker, 3+ mitral regurg Do you want consulting provider notified?: Yes 07/22/21 04:38 Consult Physician Routine Consulting Provider: Fang Santana Consult Reason/Comments: Vaginal discharge/bleeding Do you want consulting provider notified?: Yes Primary care physician: Costa Falcon Hospital Course: MRSA bacteremia Sarcoidosis with pulmonary, cardiac involvement Morbid obeisty with BM 43.6 and obstructive sleep apnea Anxiety and depression Recent pancreatitis Atrial fibrillation Insomnia DM 2 with hyperglycemia Dyslipidemia Hypothyroidism Patient is a 45-year-old female with recently discovered sarcoidosis with pulmonary infiltrates currently on high-dose steroids, cardiomyopathy with ejection fraction 35% status post AICD, A. fib, diabetes, and multiple other comorbid conditions who presented to the hospital after hours of just feeling over both frontal and having low blood pressures. Patient wa admitted here from 07/07 through 07/11 for pancreatitis. She was supposed to see Dr. Sow after discharge however was unable to make that appointment. She was also hospitalized here from 07/01 through 07/05 with sarcoidosis flare at that point in time she was sent home on prednisone 50 mg daily to take for 30 days. On arrival to the ER, her temperature was 99.9 and her blood pressure is 112/67. Laboratory analysis showed a white blood cell count of 24.4, lactic acid 2.6, magnesium 1.3, platelets of 145. Chest x-ray showed possible left infiltrate. Patient was subsequently found to have MRSA bacteremia and was started on vancomycin. Unfortunately, she was unable to clear her blood cultures after 7 days, and subsequently underwent a TEODORO which demonstrated right atrial lead vegetation consistent with abscess. Patient was seen by the EP service, who took patient to the EP suite, and were able to remove her infected lead, as well as her right ventricular and left ventricular leads. She had her BiV generator switched out, and had a new temporary right ventricular lead placed since she is dependent on pacing. After removal of this lead, her blood cultures did clear. She was subsequently discharged home with vancomycin for an anticipated 6-8 week course per ID recommendations. Following the completion of her course, she will have a new biventricular ICD generator placed on the right side. PICC line placed on right for abx. I spent 45 minutes coordinating this complex discharge, discharge date 07/25 Gen: awake, alert HEENT: normocephalic, atraumatic, good hearing acuity, moist mucous membranes Resp: good air exchange, breathing comfortably with no accessory muscle use CVS: good distal perfusion x 4, GI: soft, NTTP, ND : no SPT, no CVAT, reyes catheter not present MSK: no pitting edema, no clubbing Neuro: non-focal, moving all extremities Psych: cooperative, euthymic mood Patient Condition at Discharge: Good Plan - Discharge Summary New Discharge Prescriptions: New Pantoprazole [Protonix] 40 mg PO AC-BID #60 tab Vancomycin 2,000 mg IVPB Q12HR each Continue metFORMIN HCL [Glucophage] 1,000 mg PO BID-W/MEALS Ezetimibe [Zetia] 10 mg PO DAILY Apixaban [Eliquis] 5 mg PO BID #180 tab carvediloL [Coreg] 3.125 mg PO BID #180 tablet PARoxetine HCL 30 mg PO DAILY Artificial Tears-Hypromellose [Artificial Tear Drops] 1 drop BOTH EYES TID PRN PRN Reason: Dry Eye(S) Albuterol Inhaler [Ventolin Hfa Inhaler] 2 puff INHALATION RT-Q4H PRN PRN Reason: Shortness Of Breath Levothyroxine Sodium [Synthroid] 175 mcg PO DAILY Furosemide [Lasix] 40 mg PO DAILY #30 tablet guaiFENesin-Coden 100-10MG/5ML [Robitussin AC] 10 ml PO TID PRN #1000 ml PRN Reason: Cough Fenofibrate [Lofibra] 160 mg PO DIRECTED Acetaminophen [Tylenol] 1,000 mg PO Q4-6H PRN PRN Reason: Fever And/ Or Pain Latanoprost/Pf [Latanoprost 0.005% Eye Drop] 1 drop RIGHT EYE HS predniSONE 50 mg PO DAILY #30 tab glipiZIDE [Glucotrol] 5 mg PO AC-BRKFST #30 tab HYDROcodone/APAP 5-325MG [Slemp 5-325] 1 tab PO Q6HR PRN 3 Days #12 tab PRN Reason: Pain Discharge Medication List metFORMIN HCL [Glucophage] 1,000 mg PO BID-W/MEALS 11/10/17 [History] Ezetimibe [Zetia] 10 mg PO DAILY 10/06/18 [History] Apixaban [Eliquis] 5 mg PO BID #180 tab 02/15/19 [Rx] carvediloL [Coreg] 3.125 mg PO BID #180 tablet 02/16/19 [Rx] PARoxetine HCL 30 mg PO DAILY 06/23/19 [History] Artificial Tears-Hypromellose [Artificial Tear Drops] 1 drop BOTH EYES TID PRN 11/13/20 [History] Albuterol Inhaler [Ventolin Hfa Inhaler] 2 puff INHALATION RT-Q4H PRN 06/26/21 [History] Acetaminophen [Tylenol] 1,000 mg PO Q4-6H PRN 07/01/21 [History] Latanoprost/Pf [Latanoprost 0.005% Eye Drop] 1 drop RIGHT EYE HS 07/01/21 [History] Levothyroxine Sodium [Synthroid] 175 mcg PO DAILY 07/01/21 [History] Furosemide [Lasix] 40 mg PO DAILY #30 tablet 07/05/21 [Rx] glipiZIDE [Glucotrol] 5 mg PO AC-BRKFST #30 tab 07/05/21 [Rx] guaiFENesin-Coden 100-10MG/5ML [Robitussin AC] 10 ml PO TID PRN #1000 ml 07/05/21 [Rx] predniSONE 50 mg PO DAILY #30 tab 07/05/21 [Rx] HYDROcodone/APAP 5-325MG [Slemp 5-325] 1 tab PO Q6HR PRN 3 Days #12 tab 07/11/21 [Rx] Fenofibrate [Lofibra] 160 mg PO DIRECTED 07/14/21 [History] Pantoprazole [Protonix] 40 mg PO AC-BID #60 tab 07/25/21 [Rx] Vancomycin 2,000 mg IVPB Q12HR each 07/25/21 [Rx] Follow up Appointment(s)/Referral(s): [facility] [NON-STAFF] - As Needed (Contact if wanting to rent a home oxygen concentrator. ) Amanda Sprague MD [STAFF PHYSICIAN] - As Needed (GI Specilist in [facility]) [facility], [NON-STAFF] - 07/26/21 Infusion Services,[facility] [REFERRING] - (Medication and supplies will be delivered tonight 07/25/21 at your home.) Valentín Sow MD [STAFF PHYSICIAN] - 1 Week [facility] Falcon [Primary Care Provider] - 1-2 days Patient Instructions/Handouts: Transesophageal Echocardiogram (GEN) Discharge/Stand Alone Forms: [employer] Discharge Disposition: HOME SELF-CARE
--- NOTE | 2021-07-25 14:57 | P.PN ---
Subjective Progress Note Date: 07/25/21 Principal diagnosis: Bacteremia Physical very pleasant 45-year-old female patient with a known history of previous admission for acute pancreatitis, atrial fibrillation, diabetes m ellitus, GI bleeding, hypertension, hyperlipidemia, cardiomyopathy status post AICD placement, anxiety/depression. 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 She had undergone bronchoscopy with biopsies on 06/27/[address] Sow. She was found to have confluent nonnecrotizing granulomas and chronic inflammation. Negative for malignancy. The right middle lobe collapse. She is on an antibiotic and prednisone 50 mg daily. She presented to the emergency room again yesterday with complaints of abdominal discomfort that felt similar to her previous pancreatitis. She did develop anxiety with shortness of breath. She had another CT angiogram that revealed no evidence of pulmonary embolism. There is bilateral pulmonary atelectasis mainly in the right middle lobe consistent with postobstructive atelectasis however it is improved compared to previous. White count 14.5. Hemoglobin 13.2. Platelets 121. Sodium 136. Potassium 4.6. Bicarb 20. BUN 16. Creatinine 0.7. Initial lactic acid 2.8 currently 1.7. Initial blood cultures revealing Staphylococcus aureus. The patient was stating she had some edema and drainage from her right brachial IV site from her previous admission. She was just discharged home on 07/11/2021. She been initiated on vancomycin and azithromycin along with Zosyn. She received 500 mL of fluid resuscitation. She is seen today the patient on the regular medical. She is currently awake and alert in no acute distress. She denies any worsening shortness of breath. Occasional cough with some blood-tinged sputum. She is maintaining O2 saturation in the 90s on 2 L/m per nasal cannula. She's afebrile. Her lipase was 148 yesterday. Down to 132 today. ProBNP 5450. Echocardiogram from previous admission revealed moderately impaired left ventricular systolic function with ejection fraction of 35-40%. She is continued on oral diuretics. She is anticoagulated with Eliquis. On 07/16/2021 patient seen in follow-up on medical surgical floor. She is resting comfortably in bed, denies any acute distress, on 2 L of oxygen patient satting 93-94%. Vital signs have been stable, occasional cough, at times with production of small amount of blood-tinged phlegm. Patient remains on Eliquis. CT angiogram of the chest showed no evidence of pulmonary embolism. And bilateral pulmonary atelectasis, and right middle lobe postobstructive atelectasis, with improvement in aeration compared the last admission. No abdominal pain, no nausea or vomiting, patient remains on small dose of prednisone 20 mg daily, patient was found to be bacteremic, so far blood cultures from 07/14/2021 and 07/15/2021 were positive, with preliminary results suggesting presumptive MRSA, sputum culture is pending. Patient is on vancomycin for antibiotic coverage. Patient requested to be put back on BiPAP support at bedtime because she feels short of breath at nighttime. Patient continues on home dose oral Lasix. She feels like her abdomen is bloated, but denies any abdominal pain. Labs have been reviewed, white blood cell count is improved, and is down to 14.5, electrolytes and renal profile are unremarkable. Pro-calcitonin level of increased and is up to 0.64 on today's labs. On 07/17/2021 patient seen in follow-up on medical surgical floor. Follow blood culture from 07/16/2021 is persistently positive for gram-positive cocci in clusters, and blood culture from 07/14/2021 resulted and methicillin-resistant staph aureus. Patient remains on vancomycin for antibiotic coverage, IV service is following. Today's labs have been reviewed, white blood cell count is improved and is down to 10.9, hemoglobin of 11.9, sodium is 138, potassium is 3.8, chloride is 101, CO2 32, BUN is 12, creatinine 0.57. No fever. No chills, no chest pain, no worsening dyspnea, patient is tolerating ambulation about the room, occasional cough, at times with some blood-tinged sputum, small amount. Continues on Eliquis 5 mg twice daily. No nausea vomiting or diarrhea, lipase level is 132. No abdominal pain. Tolerating oral intake. On 07/22/2021 patient seen in follow-up on selective care unit, she is status p ost successful extraction of the right atrial lead, successful extraction of the LV lead and RV ICD lead, and implantation of a new RV pacing lead in the RV apex using the right atrial lead, and implantation of a single-chamber pacemaker generator. Patient is resting in bed comfortably, does not appear to be in any acute distress, vital signs have been stable, she remains on 2 L of oxygen pulse ox is 97-98%, patient is afebrile. Patient remains on cefazolin and vancomycin for antibiotic coverage, ID service is following. She has had no acute events overnight. She denies any worsening dyspnea. Patient continues on Eliquis for anticoagulation for chronic A. fib. On 07/23/2021 patient seen in follow-up on selective care unit. Patient is awake and alert, in no acute distress, she status post pacemaker AICD lead removal and placement of a new RV pacing lead, and implantation of a single- chamber pacemaker generator yesterday. She is breathing comfortably, cooperative chest discomfort other than incisional pain in the left upper chest which has some swelling, but the site is a bit tight but no definite evidence of hematoma. Afebrile. Follow-up blood cultures sent on 07/21/2021 and 07/22/2021 have shown no growth as far. Patient currently remains on Diflucan, and vancomycin, she remains on small dose prednisone 20 mg daily, she remains on oral Eliquis. Doing well, ID service is following, case discussed with ID service. Patient denies any worsening dyspnea hypoxia, cough or congestion. She is maintaining stable to saturations on room air. On 07/25/2021 patient seen in follow-up on selective care unit, she is awake and alert, in no acute distress, denies any shortness of breath, denies any worsening dyspnea. No hemoptysis, no chest discomfort. Vital signs have been stable, room air pulse ox is 95%, blood pressures were stable, patient is been afebrile. Her blood cultures from 07/21, 07/22, and 07/23/2021 have shown no growth, patient is scheduled for PICC line placement today. Does have no acute events overnight, she remains on vancomycin for evidence of MRSA in the blood cultures. ID service has been following. Discharge planning is in progress for discharge home on IV vancomycin 2 g every 12 hours. Objective - Vital Signs Vital signs: Vital Signs Temp 97.9 F 07/25/21 08:00 Pulse 47 L 07/25/21 04:00 Resp 18 07/25/21 12:00 BP 116/67 07/25/21 12:00 Pulse Ox 95 07/25/21 12:00 FiO2 35 07/25/21 07:33 Intake & Output 07/24/21 07/25/21 07/25/21 18:59 06:59 18:59 Intake Total 900 500 Output Total 200 Balance 900 500 -200 Weight 122.8 kg 123.4 kg Intake: Intake, IV Titration 500 500 Amount Vancomycin 2,000 mg In 500 500 Sodium Chloride 0.9% 500 ml 500 ml @ 167 mls/hr IVPB Q12HR [facility] Rx#: [id number] Oral 400 Output: Urine 200 Other: Voiding Method Toilet Toilet # Voids 1 - Exam GENERAL EXAM: Alert, very pleasant, 45-year-old white female on 2 L of oxygen a pulse ox of 93% comfortable in no apparent distress. HEAD: Normocephalic/atraumatic. EYES: Normal reaction of pupils, equal size. Conjunctiva pink, sclera white. NOSE: Clear with pink turbinates. THROAT: No erythema or exudates. NECK: No masses, no JVD, no thyroid enlargement, no adenopathy. CHEST: No chest wall deformity. Symmetrical expansion. LUNGS: Equal air entry with no crackles, wheeze, rhonchi or dullness. CVS: Regular rate and rhythm, normal S1 and S2, no gallops, no murmurs, no rubs ABDOMEN: Soft, distended but nontender, but soft No hepatosplenomegaly, normal bowel sounds, no guarding or rigidity. EXTREMITIES: No clubbing, no edema, no cyanosis, 2+ pulses and upper and lower extremities. MUSCULOSKELETAL: Muscle strength and tone normal. SPINE: No scoliosis or deformity SKIN: No rashes CENTRAL NERVOUS SYSTEM: Alert and oriented -3. No focal deficits, tone is normal in all 4 extremities. PSYCHIATRIC: Alert and oriented -3. Appropriate affect. Intact judgment and insight. - Labs CBC & Chem 7: 07/24/21 07:35 07/25/21 08:33 Labs: Abnormal Lab Results - Last 24 Hours (Table) 07/24/21 07/24/21 07/25/21 Range/Units 16:31 19:46 06:05 Carbon Dioxide (22-30) mmol/L BUN (7-17) mg/dL Glucose (74-99) mg/dL POC Glucose (mg/dL) 271 H 202 H 121 H (70-110) mg/dL 07/25/21 07/25/21 Range/Units 08:33 12:19 Carbon Dioxide 32 H (22-30) mmol/L BUN 21 H (7-17) mg/dL Glucose 107 H (74-99) mg/dL POC Glucose (mg/dL) 201 H (70-110) mg/dL Microbiology - Last 24 Hours (Table) 07/23/21 09:21 Blood Culture - Preliminary Blood No Growth after 48 hours 07/22/21 07:18 Blood Culture - Preliminary Blood No Growth after 72 hours 07/21/21 15:10 Blood Culture - Preliminary Blood No Growth after 72 hours Assessment and Plan Plan: #1. Abnormal vegetation on ICD lead related to persistent bacteremia, status post extraction of the right atrial lead, LV lead, and RV ICD lead and implantation of RV pacing lead and single-chamber pacemaker generator on 07/22/2021 #2. Bacteremia, related to methicillin-resistant staph aureus, on vancomycin, #3. Lactic acidosis, improved #4. Recent hospitalization for acute pancreatitis that was thought to be drug induced, improved #5. 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 Recent hospitalization for acute pneumonia, difficulty breathing, right lung collapse, and acute hypoxic respiratory failure, status post bronchoscopy #7. Chronic A. fib on an requests #8. Diabetes mellitus type 2 #9. Hypertension #10. Hyperlipidemia #11. Previous history of myocardial infarction #12. Sleep apnea #13. 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 Multiple sclerosis #16. Permanent pacemaker implantation and AICD placement #17. ADD/ADHD #18. Anxiety and depression #19. History of cardiac sarcoidosis and secondary cardiomyopathy, most recent echocardiogram reveals impaired left ventricular systolic function with ejection fraction 35-40% #10. History of cardiac arrhythmias related to cardiac sarcoidosis and had undergone previous cardiac MRI and the patient has sinus syndrome and dual- chamber pacemaker/AICD placed Plan: Follow-up blood cultures are negative from 07/21/2021, 07/22/2021, and 07/23/[address] in [address] Discharge planning is in progress for discharge home on vancomycin infusions We will decrease the prednisone dose to 10 mg daily on which the patient will continue after discharge She is stable for discharge home from pulmonary perspective Outpatient follow-up with Dr. Sow in the office in 7-10 days I have personally seen and examined the patient, performed the documentation and the assessment and plan as written. Number of minutes spent on the visit: [10] Time with Patient: Less than 30
[2021-07-25] MEDS: SODIUM CHLORIDE 0.9% 1,000 ML IV SCH (15:38)
[2021-07-25 16:26] LABS: Glucose,Whole Blood 193 mg/dL (70-110)
--- NOTE | 2021-07-25 16:41 | P.PN ---
Progress Note - Text Progress Note Date: 07/25/21 Unfortunately, the PICC line was placed on the wrong side, preference would be to place on left side despair the right vasculature for future biventricular AICD placement. I discussed this with our lead burner apprentice, who would prefer that the PICC line is replaced on the left side. Our PICC line team is not available at this time, therefore, patient will have to stay overnight with the plan to replace the PICC line tomorrow, then can go home with home IV antibiotics as previously planned.
[2021-07-25 20:30] LABS: Glucose,Whole Blood 189 mg/dL (70-110)
[2021-07-25] MEDS: LATANOPROST 0.005% OPHTH DROPS 2.5 ML BTL RIGHT EYE SCH (21:37)
[2021-07-26 04:12] VITALS: PULSE 50
[2021-07-26] MEDS ORDERED: VANCOMYCIN 2,000 MG in SODIUM CHLORIDE 0.9% 500 ML 500 ML IVPB SCH (06:00)
[2021-07-26 06:15] LABS: Glucose,Whole Blood 165 mg/dL (70-110)
[2021-07-26] MEDS: PANTOPRAZOLE 40 MG TABLET PO SCH (06:26)
[2021-07-26] MEDS: INSULIN ASPART (NovoLOG) 100 UNIT/ML VIAL SQ SCH ×2 (06:26→13:23)
[2021-07-26] MEDS: APIXABAN 5 MG TAB PO SCH (08:54)
[2021-07-26] MEDS: EZETIMIBE 10 MG TAB PO SCH (08:54)
[2021-07-26] MEDS: LEVOTHYROXINE 88 MCG TAB PO SCH (08:54)
[2021-07-26] MEDS: carvediloL 3.125 MG TAB PO SCH (08:55)
[2021-07-26] MEDS: FUROSEMIDE 10 MG/ML 4 ML VIAL IV SCH (08:55)
[2021-07-26] MEDS: PARoxetine 10 MG TAB PO SCH (08:55)
[2021-07-26] MEDS ORDERED: predniSONE 10 MG TAB PO SCH (09:00)
[2021-07-26 10:04] VITALS: TEMP 97.9
[2021-07-26 10:30] LABS: African American GFR (CKD) >90 (>60 ml/min/1.73 sqM); Anion Gap 5 mmol/L; Blood Urea Nitrogen 21 mg/dL (7-17); Calcium 8.7 mg/dL (8.4-10.2); Carbon Dioxide 35 mmol/L (22-30); Chloride 98 mmol/L (98-107); Glucose 116 mg/dL (74-99); Non-African American GFR(CKD) >90 (>60 ml/min/1.73 sqM); Potassium 3.5 mmol/L (3.5-5.1); Sodium 138 mmol/L (137-145)
[2021-07-26] MEDS ORDERED: LIDOCAINE 1% INJ 10MG/ML (20 ML MDV) SQ ONE (10:47)
[2021-07-26] MEDS: SODIUM CHLORIDE 0.9% 1,000 ML IV SCH (11:30)
[2021-07-26 11:46] LABS: Glucose,Whole Blood 138 mg/dL (70-110)
--- NOTE | 2021-07-26 12:22 | P.PCN ---
Date of Procedure: 07/26/21 Preoperative Diagnosis: infection Postoperative Diagnosis: same Procedure(s) Performed: attempted picc line, left upper extremity venogram Anesthesia: local Estimated Blood Loss (ml): 5 Pathology: none sent Condition: stable Disposition: no change Operative Findings: during placement of picc line per referring clinician in the left upper extremity, wire could not be advanced centrally. Was made aware of venogram performed previous weekend during the picc placement, venogram shows collateralization about the left subclavian vein c/w occlusion or high grade stenosis. Wire could not be passed central to left subclavian vein, picc aborted.
--- NOTE | 2021-07-26 12:31 | IR ---
Left upper extremity PICC line, venogram HISTORY: Infection, needs long-term intravenous access for IV therapy Skin overlying the left basilic vein was localized with ultrasound and the overlying skin prepped and draped. Lidocaine used for local anesthesia. The vein was noted to be compressible and patent by dia cerrato. Ultrasound used with sterile technique. Skin farhat was made with a scalpel. Under direct ultr asound guidance the left basilic vein was cannulated with a 21-gauge needle. An 0.018 inch wire was a dvanced but could not be advanced centrally on placement of peel-away sheath. Attempts with an angled glide wire were subsequently performed. Gentle hand-injection of contrast material was performed, ve nogram shows collateralization around the left subclavian vein. Exam was aborted. Peel-away sheath was removed. Hemostasis achieved. No immediate competition. Patien t remained in stable condition. Exam correlates with venogram performed prior weekend. 3.1 minutes fluoroscopy time. 56 intraoperative C-arm images document the procedure. IMPRESSION: Aborted PICC line. Wire could not be advanced centrally.
--- NOTE | 2021-07-26 13:02 | P.PN ---
Subjective Progress Note Date: 07/26/21 Patient is seen up walking around the room today. She denies chest pain or increased shortness of breath. She underwent a placement of a right upper arm PICC line yesterday. Due to needing a pacemaker on the right side, right upper PICC line will be removed and a left upper arm PICC line is to be placed today and the patient will be discharged on IV antibiotics Objective - Vital Signs Vital signs: Vital Signs Temp 97.9 F 07/26/21 08:00 Pulse 50 L 07/26/21 08:00 Resp 20 07/26/21 08:00 BP 111/72 07/26/21 08:00 Pulse Ox 96 07/26/21 08:00 FiO2 35 07/25/21 07:33 Intake & Output 07/25/21 07/26/21 07/26/21 18:59 06:59 18:59 Intake Total 100 Output Total 200 1 Balance -200 99 Intake: Oral 100 Output: Urine 200 1 Other: Voiding Method Toilet # Voids 1 1 - Exam PHYSICAL EXAM: VITAL SIGNS: Reviewed. GENERAL: Well-developed in no acute distress. HEENT: Head is normocephalic. Pupils are equal, round. Sclerae anicteric. Mucous membranes of the mouth are moist. NECK: Supple. No JVD or thyromegaly RESPIRATORY: Respirations even and unlabored. Lungs diminished to auscultation bilaterally. CARDIO: Regular rate and rhythm. S1 and S2 heard. No murmur or gallops. EXTREMITIES: Normal range of motion. No clubbing or cyanosis. Peripheral pulses intact. Mild bilateral lower extremity edema NEURO: Orientated to person, time, mood is appropriate - Labs CBC & Chem 7: 07/24/21 07:35 07/26/21 09:47 Labs: Abnormal Lab Results - Last 24 Hours (Table) 07/25/21 07/25/21 07/26/21 Range/Units 16:24 20:28 06:13 Carbon Dioxide (22-30) mmol/L BUN (7-17) mg/dL Glucose (74-99) mg/dL POC Glucose (mg/dL) 193 H 189 H 165 H (70-110) mg/dL 07/26/21 07/26/21 Range/Units 09:47 11:45 Carbon Dioxide 35 H (22-30) mmol/L BUN 21 H (7-17) mg/dL Glucose 116 H (74-99) mg/dL POC Glucose (mg/dL) 138 H (70-110) mg/dL Microbiology - Last 24 Hours (Table) 07/23/21 09:21 Blood Culture - Preliminary Blood No Growth after 72 hours 07/22/21 07:18 Blood Culture - Preliminary Blood No Growth after 96 hours 07/21/21 15:10 Blood Culture - Preliminary Blood No Growth after 96 hours Assessment and Plan Assessment: MRSA bacteremia, status post TEODORO revealing vegetation Status post extraction of right atrial lead, LV lead, and RV ICD lead and implantation of new RV pacing lead in the RV apex and implantation of signal chamber pacemaker generator in the pocket Recent hospitalization for acute pneumonia and acute hypoxic respiratory failure, status post bronchoscopy Nonischemic cardiomyopathy with previous AICD History of complete heart block Paroxysmal atrial fibrillation/typical atrial flutter on anticoagulation with Eliquis Pulmonary and cardiac sarcoidosis Hypertension Hyperlipidemia Diabetes mellitus Plan: Place upper left arm PICC line Continue current cardiac medications Continue antibiotics per infectious disease Patient will require eventual right sided AICD when bacteremia resolves Anticipated discharge The above impression and plan of care have been discussed and directed by the signing physician. Merle Mari, nurse practitioner, acting as scribe for signing physician.
[2021-07-26 14:13] VITALS: BP 134/65; RESP 18
[2021-07-26 16:22] LABS: Glucose,Whole Blood 202 mg/dL (70-110)
--- NOTE | 2021-07-29 09:59 | CDI ---
Documentation Clarification Form Date: 07/29/21 From: Chrissy Guillaume Admit Date: 07/14/2021 03:45:00 PM Patient Name: Bernice Tran Visit Number: [id number] Discharge Date: 07/26/2021 06:06:00 PM ATTENTION: The Clinical Documentation Specialists (CDI) and [facility] Coding Staff appreciate your assistance in clarifying documentation. Please respond to the clarification below the line at the bottom and electronically sign. The CDI & [facility] Coding staff will review the response and follow-up if needed. Please note: Queries are made part of the Legal Health Record. If you have any questions, please contact the author of this message via ITS. Dr. Ana Bardales, There is documentation of bacteremia in 07/[address] Sow and your discharge summary. Bacteremia is considered a lab finding. Additional clarification regarding bacteremia is requested. Patient history/risk factors: sarcoidosis with pulmonary, cardiac and neuro, atrioventricular block complete, non-ischemic cardiomyopathy DM2 w hyperglycemia, typical atrial flutter, PAF, acidosis, morbid obesity Clinical Indicators: On arrival to the ER, her temperature was 99.9 and her blood pressure is 112/67. Patient was subsequently found to have MRSA bacteremia and was started on vancomycin. Unfortunately, she was unable to clear her blood cultures after 7 days, and subsequently underwent a TEODORO which demonstrated right atrial lead vegetation consistent with abscess. WBC: 24.4 Left Shift: 22.8 Blood Culture: MRSA Consult: Dr Sow: MRSA sepsis with persitent bacteremia currently on Vancomycin. Treatment: IV Vancomycin, removal of AICD device, implant a single lead pacemaker Please provide additional clarification regarding the etiology/cause and/or clinical significance of the bacteremia: [x] Bacteremia is related to MRSA sepsis [ ] Bacteremia is due to infectious process, please specify: [ ] Bacteremia is not clinically significant [ ] Other, please specify [ ] Unable to determine MTDD
--- NOTE | 2021-07-29 10:15 | CDI ---
Documentation Clarification Form Date: 07/29/21 From: Chrissy Guillaume Admit Date: 07/14/2021 03:45:00 PM Patient Name: Bernice Tran Visit Number: [id number] Discharge Date: 07/26/2021 06:06:00 PM ATTENTION: The Clinical Documentation Specialists (CDI) and [facility] Coding Staff appreciate your assistance in clarifying documentation. Please respond to the clarification below the line at the bottom and electronically sign. The CDI & [facility] Coding staff will review the response and follow-up if needed. Please note: Queries are made part of the Legal Health Record. If you have any questions, please contact the author of this message via ITS. Dr. Ana Bardales, Your patient has the documented diagnosis of chronic CHF in H&P and numerous progress notes. Additional information regarding the type of CHF is requested. History/Risk Factors: sarcoidosis with pulmonary, cardiac and neuro, atrioventricular block complete, non-ischemic cardiomyopathy DM2 w hyperglycemia, typical atrial flutter, PAF, acidosis, morbid obesity Clinical Indicators: On arrival to the ER here she complained of persistent diaphoresis and just not feeling good. She also felt was that she was hyperventilating, diaphoretic, and just overall not feeling well. Cardiovascular: S1S2 reg. VS/Pulse OX: T 99.9, P68, R 16, BP 112/67, O2 Sat 94 BNP: none available Prev Adm ECHO: impaired left ventricular systolic function with ejection fraction 35-40% TEODORO Results: No EF. #1.Mobile lesion noted on the probably atrial lead, suggestive of vegetation #2.3+ mitral regurgitation #3.Severe global left ventricular dysfunction. #4.Left atrial enlargement. #5.No clot in the left atrial appendage. #6.No evidence of PFO 07/14 Chest X Ray: no heart failure Treatment: Lasix 40 mg daily, 610 40 mg IV In your professional opinion, can you please clarify the type of chronic CHF if known? [x] Chronic Systolic Heart Failure (reduced EF) [ ] Chronic Diastolic Heart Failure (preserved EF) [ ] Chronic Systolic & Diastolic Heart Failure [ ] Other, please specify [ ] Unable to determine MTDD
--- NOTE | 2021-08-03 | P.PN ---
Subjective Progress Note Date: 07/25/21 Principal diagnosis: MRSA bacteremia Patient is a 45-year-old female with a past medical history significant for diabetes mellitus hypertension hyperlipidemia cardiomyopathy status post AICD placement acute pancreatitis anxiety depression patient recently underwent on bronchoscopy with a biopsy by Dr. Sow on 06/27/2021 and was noticed to have a nonnecrotizing granulomatous and chronic inflammation negative for malignancy, subsequently presented to hospital with the lateral chest pain shortness of breath and cough did have a fever and evidence of MRSA bacteremia. Patient did have persistent bacteremia for which the patient did have a TEODORO completed 07/20/2019 was suggestive of vegetation on the AICD lead, patient is status post extraction of the biventricular/AICD leads and placement of temporary transvenous pacer on 07/21/2021 On today's evaluation that is 07/25/2021, patient denies any fever or chills, patient is breathing comfortably on room air, the patient denies any any chest pain did have minimal cough, the patient denies any nausea no vomiting no abdominal pain or diarrhea, feeling slightly better Objective - Vital Signs Vital signs: Vital Signs Temp 97.9 F 07/25/21 08:00 Pulse 47 L 07/25/21 04:00 Resp 18 07/25/21 12:00 BP 116/67 07/25/21 12:00 Pulse Ox 95 07/25/21 12:00 FiO2 35 07/25/21 07:33 Intake & Output 07/24/21 07/25/21 07/25/21 18:59 06:59 18:59 Intake Total 900 500 Output Total 200 Balance 900 500 -200 Weight 122.8 kg 123.4 kg Intake: Intake, IV Titration 500 500 Amount Vancomycin 2,000 mg In 500 500 Sodium Chloride 0.9% 500 ml 500 ml @ 167 mls/hr IVPB Q12HR [facility] Rx#: [id number] Oral 400 Output: Urine 200 Other: Voiding Method Toilet Toilet # Voids 1 - Exam GENERAL DESCRIPTION: Middle-age female lying in bed in no distress RESPIRATORY SYSTEM: Unlabored breathing , decreased breath sounds at bases HEART: S1 S2 regular rate and rhythm , ABDOMEN: Soft , no tenderness EXTREMITIES: No edema feet - Labs CBC & Chem 7: 07/24/21 07:35 07/26/21 09:47 Labs: Abnormal Lab Results - Last 24 Hours (Table) 07/24/21 07/24/21 07/25/21 Range/Units 16:31 19:46 06:05 Carbon Dioxide (22-30) mmol/L BUN (7-17) mg/dL Glucose (74-99) mg/dL POC Glucose (mg/dL) 271 H 202 H 121 H (70-110) mg/dL 07/25/21 07/25/21 Range/Units 08:33 12:19 Carbon Dioxide 32 H (22-30) mmol/L BUN 21 H (7-17) mg/dL Glucose 107 H (74-99) mg/dL POC Glucose (mg/dL) 201 H (70-110) mg/dL Microbiology - Last 24 Hours (Table) 07/23/21 09:21 Blood Culture - Preliminary Blood No Growth after 48 hours 07/22/21 07:18 Blood Culture - Preliminary Blood No Growth after 72 hours 07/21/21 15:10 Blood Culture - Preliminary Blood No Growth after 72 hours Assessment and Plan (1) Pneumonia Status: Acute Code(s): J18.9 - PNEUMONIA, UNSPECIFIED ORGANISM SNOMED Code(s): 754225561 Plan: 1patient with MRSA bacteremia more likely secondary to the pneumonia in this patient presented to hospital with increasing shortness of breath hypoxemia with evidence of right middle lobe pneumonia, currently with no other obvious focus for this bacteremia in this patient with no skin lesion or joint swelling and abdominal was soft on clinical examination. 2 patient did have persistent bacteremia concerning for possible endovascular source patient did have TEODORO suggestive of vegetation on the AICD lead, patient is status post removal of the AICD lead on 07/21/2021 3patient blood culture 2021 as well as 07/22/2021 are so far negative. Patient has been cleared for placement of PICC line for outpatient IV vancomycin 4patient to continue with vancomycin pharmacy to dose and plan for 6 weeks of antibiotic therapy Time with Patient: Less than 30
--- NOTE | 2021-08-03 00:01 | P.PN ---
Subjective Progress Note Date: 07/26/21 Principal diagnosis: MRSA bacteremia Patient is a 45-year-old female with a past medical history significant for diabetes mellitus hypertension hyperlipidemia cardiomyopathy status post AICD placement acute pancreatitis anxiety depression patient recently underwent on bronchoscopy with a biopsy by Dr. Sow on 06/27/2021 and was noticed to have a nonnecrotizing granulomatous and chronic inflammation negative for malignancy, subsequently presented to hospital with the lateral chest pain shortness of breath and cough did have a fever and evidence of MRSA bacteremia. Patient did have persistent bacteremia for which the patient did have a TEODORO completed 07/20/2019 was suggestive of vegetation on the AICD lead, patient is status post extraction of the biventricular/AICD leads and placement of temporary transvenous pacer on 07/21/2021 On today's evaluation that is 07/26/2021, patient continues to be afebrile, patient is breathing comfortably on room air, the patient denies chest pain, the patient did have minimal cough, the patient denies any nausea no vomiting no abdominal pain or diarrhea, the patient is overall feeling better Objective - Vital Signs Vital signs: Vital Signs Temp 97.9 F 07/26/21 08:00 Pulse 50 L 07/26/21 08:00 Resp 20 07/26/21 08:00 BP 111/72 07/26/21 08:00 Pulse Ox 96 07/26/21 08:00 FiO2 35 07/25/21 07:33 Intake & Output 07/25/21 07/26/21 07/26/21 18:59 06:59 18:59 Intake Total 100 Output Total 200 1 Balance -200 99 Intake: Oral 100 Output: Urine 200 1 Other: Voiding Method Toilet # Voids 1 1 - Exam GENERAL DESCRIPTION: Middle-age female lying in bed in no distress RESPIRATORY SYSTEM: Unlabored breathing , decreased breath sounds at bases HEART: S1 S2 regular rate and rhythm , ABDOMEN: Soft , no tenderness EXTREMITIES: No edema feet - Labs CBC & Chem 7: 07/24/21 07:35 07/26/21 09:47 Labs: Abnormal Lab Results - Last 24 Hours (Table) 07/25/21 07/25/21 07/26/21 Range/Units 16:24 20:28 06:13 Carbon Dioxide (22-30) mmol/L BUN (7-17) mg/dL Glucose (74-99) mg/dL POC Glucose (mg/dL) 193 H 189 H 165 H (70-110) mg/dL 07/26/21 07/26/21 Range/Units 09:47 11:45 Carbon Dioxide 35 H (22-30) mmol/L BUN 21 H (7-17) mg/dL Glucose 116 H (74-99) mg/dL POC Glucose (mg/dL) 138 H (70-110) mg/dL Microbiology - Last 24 Hours (Table) 07/23/21 09:21 Blood Culture - Preliminary Blood No Growth after 72 hours 07/22/21 07:18 Blood Culture - Preliminary Blood No Growth after 96 hours 07/21/21 15:10 Blood Culture - Preliminary Blood No Growth after 96 hours Assessment and Plan (1) Pneumonia Status: Acute Code(s): J18.9 - PNEUMONIA, UNSPECIFIED ORGANISM SNOMED Code(s): 049026323 Plan: 1patient with MRSA bacteremia more likely secondary to the pneumonia in this patient presented to hospital with increasing shortness of breath hypoxemia with evidence of right middle lobe pneumonia, currently with no other obvious focus for this bacteremia in this patient with no skin lesion or joint swelling and abdominal was soft on clinical examination. 2 patient did have persistent bacteremia concerning for possible endovascular source patient did have TEODORO suggestive of vegetation on the AICD lead, patient is status post removal of the AICD lead on 07/21/2021 3patient blood culture 2021 as well as 07/22/2021 are so far negative. Patient did have PICC line placed yesterday for outpatient IV vancomycin 4patient to continue with vancomycin pharmacy to dose for a total of 6 weeks of antibiotic therapy and close outpatient follow-up Time with Patient: Less than 30
== END 2021-07-26 18:06 | disposition home health service (06) | DRG 242 ==
LOC: EC 14:24 → 4SSUR 15:45 → 6NMEDSUR 16:11 → 3SCARD 07-21 14:07
PROVIDERS: ADMIT Hospitalist; ATTEND Hospitalist
PROC: B246ZZ4 Ultrasonography of Right and Left Heart, Transesophageal (ICD-10-PCS; 2021-07-19)
PROC: 02HK3JZ Insertion of Pacemaker Lead into Right Ventricle, Percutaneous Approach (ICD-10-PCS; 2021-07-21)
PROC: 0JPT0PZ Removal of Cardiac Rhythm Related Device from Trunk Subcutaneous Tissue and Fascia, Open Approach (ICD-10-PCS; principal; 2021-07-21 09:30)
PROC: 02PA3MZ Removal of Cardiac Lead from Heart, Percutaneous Approach (ICD-10-PCS; principal; 2021-07-21 09:30)
PROC: 02H63JZ Insertion of Pacemaker Lead into Right Atrium, Percutaneous Approach (ICD-10-PCS; principal; 2021-07-21 09:30)
PROC: 0JH604Z Insertion of Pacemaker, Single Chamber into Chest Subcutaneous Tissue and Fascia, Open Approach (ICD-10-PCS; principal; 2021-07-21 09:30)
PROC: 02HV33Z Insertion of Infusion Device into Superior Vena Cava, Percutaneous Approach (ICD-10-PCS; 2021-07-25)
PROC: B51N1ZZ Fluoroscopy of Left Upper Extremity Veins using Low Osmolar Contrast (ICD-10-PCS; 2021-07-26)
DX: T82.7XXA Infection and inflammatory reaction due to other cardiac and vascular devices, implants and grafts, initial encounter (principal); I33.0 Acute and subacute infective endocarditis; A41.02 Sepsis due to Methicillin resistant Staphylococcus aureus; E87.2 Acidosis; I44.2 Atrioventricular block, complete; I42.8 Other cardiomyopathies; I48.3 Typical atrial flutter; I50.22 Chronic systolic (congestive) heart failure; R04.2 Hemoptysis; J98.11 Atelectasis; Z68.41 Body mass index [BMI] 40.0-44.9, adult; I48.0 Paroxysmal atrial fibrillation; B37.3 Candidiasis of vulva and vagina; I11.0 Hypertensive heart disease with heart failure; I49.5 Sick sinus syndrome; G35 Multiple sclerosis; D86.0 Sarcoidosis of lung; E11.65 Type 2 diabetes mellitus with hyperglycemia; E66.01 Morbid (severe) obesity due to excess calories; Z20.822 Contact with and (suspected) exposure to COVID-19; I34.0 Nonrheumatic mitral (valve) insufficiency; D86.85 Sarcoid myocarditis; D86.89 Sarcoidosis of other sites; E83.42 Hypomagnesemia; B00.1 Herpesviral vesicular dermatitis; R09.02 Hypoxemia; G47.33 Obstructive sleep apnea (adult) (pediatric); E78.5 Hyperlipidemia, unspecified; E03.9 Hypothyroidism, unspecified; F41.9 Anxiety disorder, unspecified; F32.A Depression, unspecified; F90.9 Attention-deficit hyperactivity disorder, unspecified type; L30.9 Dermatitis, unspecified; K57.90 Diverticulosis of intestine, part unspecified, without perforation or abscess without bleeding; G47.00 Insomnia, unspecified; F40.240 Claustrophobia; F81.81 Disorder of written expression; H40.9 Unspecified glaucoma; I25.2 Old myocardial infarction; Z79.01 Long term (current) use of anticoagulants; Z79.84 Long term (current) use of oral hypoglycemic drugs; Z79.890 Hormone replacement therapy; Z79.52 Long term (current) use of systemic steroids; Z79.899 Other long term (current) drug therapy; Z87.01 Personal history of pneumonia (recurrent); Z87.39 Personal history of other diseases of the musculoskeletal system and connective tissue; Z87.820 Personal history of traumatic brain injury; Z87.19 Personal history of other diseases of the digestive system; Z90.49 Acquired absence of other specified parts of digestive tract; Z95.810 Presence of automatic (implantable) cardiac defibrillator; Z86.69 Personal history of other diseases of the nervous system and sense organs; Z86.14 Personal history of Methicillin resistant Staphylococcus aureus infection; Z98.890 Other specified postprocedural states; Z71.3 Dietary counseling and surveillance; Z88.8 Allergy status to other drugs, medicaments and biological substances; Z91.013 Allergy to seafood; Y83.1 Surgical operation with implant of artificial internal device as the cause of abnormal reaction of the patient, or of later complication, without mention of misadventure at the time of the procedure; Z82.49 Family history of ischemic heart disease and other diseases of the circulatory system; Z83.2 Family history of diseases of the blood and blood-forming organs and certain disorders involving the immune mechanism; Z82.61 Family history of arthritis; Z83.49 Family history of other endocrine, nutritional and metabolic diseases
CPT/HCPCS: 33216; 33227; 33235; 36415; 36573; 71046; 71275; 75820; 80048; 80053; 80202; 82565; 83605; 83690; 83735; 83880; 84145; 84450; 84460; 84484; 85025; 85610; 85652; 85730; 86140; 87040; 87070; 87077; 87186; 87205; 87635; 93005; 93312; 93320; 93325; 94640; 94660; 94760; 96361; 96365; 96375; 99285

== ENCOUNTER 2021-07-30 16:28 | Inpatient (IN) | payer OTHER ==
[2021-07-30 19:02] LABS: Basophils % (A) 0 %; Eosinophils # (A) 0.1 k/uL (0-0.7); Eosinophils % (A) 1 %; HCT 38.8 % (34.0-46.0); HGB 12.7 gm/dL (11.4-16.0); Hypochromasia Slight; Lymphocytes # (A) 0.9 k/uL (1.0-4.8); Lymphocytes % (A) 12 %; MCH 29.7 pg (25.0-35.0); MCHC 32.8 g/dL (31.0-37.0); MCV 90.5 fL (80.0-100.0); Mean Platelet Volume 10.5; Monocytes # (A) 0.3 k/uL (0-1.0); Monocytes % (A) 4 %; Neutrophils % (A) 81 %; Platelet Count 139 k/uL (150-450); RBC 4.28 m/uL (3.80-5.40); RDW 15.8 % (11.5-15.5); WBC 7.4 k/uL (3.8-10.6)
--- NOTE | 2021-07-30 19:05 | XR ---
EXAMINATION TYPE: XR chest 1V portable DATE OF EXAM: 07/30/2021 COMPARISON: 07/15/2021 HISTORY: Chest pain TECHNIQUE: Single view FINDINGS: Heart is enlarged. There is mild pulmonary congestion. There is left axillary pacemaker. No definite pleural effusion. IMPRESSION: Cardiomegaly and mild pulmonary congestion increased slightly compared to old exam. Mild heart failure is possible.
[2021-07-30 19:09] LABS: INR 1.1 (<1.2); Partial Thromboplastin Time 24.2 sec (22.0-30.0); Prothrombin Time 11.7 sec (9.0-12.0)
[2021-07-30 19:14] LABS: ALT 27 U/L (4-34); AST 36 U/L (14-36); African American GFR (CKD) >90 (>60 ml/min/1.73 sqM); Albumin 3.6 g/dL (3.5-5.0); Alkaline Phosphatase 75 U/L (38-126); Anion Gap 7 mmol/L; Blood Urea Nitrogen 18 mg/dL (7-17); Calcium 8.8 mg/dL (8.4-10.2); Carbon Dioxide 25 mmol/L (22-30); Chloride 104 mmol/L (98-107); Glucose 177 mg/dL (74-99); Magnesium 1.7 mg/dL (1.6-2.3); Non-African American GFR(CKD) >90 (>60 ml/min/1.73 sqM); Potassium 4.4 mmol/L (3.5-5.1); Sodium 136 mmol/L (137-145); Total Bilirubin 0.8 mg/dL (0.2-1.3); Total Protein 6.7 g/dL (6.3-8.2)
--- NOTE | 2021-07-30 19:24 | ED ---
SOB HPI - General Chief Complaint: Recheck/Abnormal Lab/Rx Stated Complaint: PUJA,Chills,Weakness Time Seen by Provider: 07/30/21 17:35 Source: patient Mode of arrival: ambulatory Limitations: no limitations - History of Present Illness Initial Comments: Patient presents with shortness of breath. Her shortness of breath is exertional. It is getting worse. She has been taking her home medications. It is not helping. She has no chest pain or pressure or tightness. She has no nausea or vomiting or diaphoresis. She states that she is gaining a significant amount of water weight as well. - Related Data Home Medications Medication Instructions Recorded Confirmed metFORMIN HCL [Glucophage] 1,000 mg PO BID-W/MEALS 11/10/17 07/14/21 Ezetimibe [Zetia] 10 mg PO DAILY 10/06/18 07/14/21 PARoxetine HCL 30 mg PO DAILY 06/23/19 07/14/21 Artificial Tears-Hypromellose 1 drop BOTH EYES TID PRN 11/13/20 07/14/21 [Artificial Tear Drops] Albuterol Inhaler [Ventolin Hfa 2 puff INHALATION RT-Q4H PRN 06/26/21 07/14/21 Inhaler] Acetaminophen [Tylenol] 1,000 mg PO Q4-6H PRN 07/01/21 07/14/21 Latanoprost/Pf [Latanoprost 0.005% 1 drop RIGHT EYE HS 07/01/21 07/14/21 Eye Drop] Levothyroxine Sodium [Synthroid] 175 mcg PO DAILY 07/01/21 07/14/21 Fenofibrate [Lofibra] 160 mg PO DIRECTED 07/14/21 07/14/21 Previous Rx's Medication Instructions Recorded Apixaban [Eliquis] 5 mg PO BID #180 tab 02/15/19 carvediloL [Coreg] 3.125 mg PO BID #180 tablet 02/16/19 Furosemide [Lasix] 40 mg PO DAILY #30 tablet 07/05/21 glipiZIDE [Glucotrol] 5 mg PO AC-BRKFST #30 tab 07/05/21 guaiFENesin-Coden 100-10MG/5ML 10 ml PO TID PRN #1000 ml 07/05/21 [Robitussin AC] predniSONE 50 mg PO DAILY #30 tab 07/05/21 HYDROcodone/APAP 5-325MG [[place] 1 tab PO Q6HR PRN 3 Days #12 tab 07/11/21 5-325] Pantoprazole [Protonix] 40 mg PO AC-BID #60 tab 07/25/21 Vancomycin 2,000 mg IVPB Q12HR each 07/25/21 Allergies Allergy/AdvReac Type Severity Reaction Status Date / Time Lbvzdud-[id number]-[id number] Reductase AdvReac FACIAL Verified 07/30/21 17:18 Inhibitor NUMBNESS [[place]-Soc-Eqc Reductase Inhibitor] SEAFOOD Allergy Rash/Hives Uncoded 07/30/21 17:18 Review of Systems ROS Statement: Those systems with pertinent positive or pertinent negative responses have been documented in the HPI. ROS Other: All systems not noted in ROS Statement are negative. Past Medical History Past Medical History: Atrial Fibrillation, Heart Failure, Diabetes Mellitus, GI Bleed, Hyperlipidemia, Hypertension, Myocardial Infarction ([place]), Musculoskeletal Disorder, Pneumonia, Skin Disorder, Sleep Apnea/CPAP/BIPAP, Thyroid Disorder Additional Past Medical History / Comment(s): "Have had 6 months of walking Pneumonia". Hx steroid induced gluacoma(resolved). Neurosarcoidosis, sarcoidosis which caused heart problems. Eczema. Hx [place] Palsy with right facial droop. Hx concussion at age 12, has some learning disablity-problems with spelling. MS. Graves Disease, " 7 auto immune diseases". DDD. CPAP use. "Weakness all over". Diarrhea and occasional blood in stool. "27 lesions on her brain". "INTERMIT TENT GI BLEED" AND PROBLEMS SWALLOWING. pacemaker placement 07/21/2021 Last Myocardial Infarction Date:: 11/15/20 History of Any Multi-Drug Resistant Organisms: MRSA Date of last positivie culture/infection: 07/19/21 MDRO Source:: MRSA BLOOD Past Surgical History: AICD, Cholecystectomy, Heart Catheterization Additional Past Surgical History / Comment(s): VENOGRAM W/CINEFLUROSCOPY. Past Anesthesia/Blood Transfusion Reactions: No Reported Reaction Additional Past Anesthesia/Blood Transfusion Reaction / Comment(s): Claustrophobia. Type of Cardiac Device: Permanent Pacemaker, AICD Device Placement Date:: 03/01 Past Psychological History: ADD/ADHD, Anxiety, Depression Smoking Status: Never smoker Past Alcohol Use History: None Reported Past Drug Use History: None Reported - Past Family History Mother Family Medical History: AFIB, Deep Vein Thrombosis (DVT) Father Family Medical History: Osteoarthritis (OA), Thyroid Disorder General Exam Limitations: no limitations General appearance: alert, in no apparent distress Head exam: Present: atraumatic, normocephalic, normal inspection Eye exam: Present: normal appearance, PERRL, EOMI. Absent: scleral icterus, conjunctival injection, periorbital swelling ENT exam: Present: normal exam, mucous membranes moist Neck exam: Present: normal inspection. Absent: tenderness, meningismus, lymphadenopathy Respiratory exam: Present: respiratory distress, rales, rhonchi. Absent: wheezes, stridor Cardiovascular Exam: Present: regular rate, normal rhythm, normal heart sounds. Absent: systolic murmur, diastolic murmur, rubs, gallop, clicks GI/Abdominal exam: Present: soft, normal bowel sounds. Absent: distended, tenderness, guarding, rebound, rigid Extremities exam: Present: full ROM, pedal edema. Absent: tenderness, joint swelling, calf tenderness Back exam: Present: normal inspection Neurological exam: Present: alert, oriented X3, CN II-XII intact Psychiatric exam: Present: normal affect, normal mood Skin exam: Present: warm, dry, intact, normal color. Absent: rash Course Vital Signs 07/30/21 17:11 Temperature 98.5 F Pulse Rate 35 L Respiratory 18 Rate Blood Pressure 123/79 O2 Sat by Pulse 96 Oximetry Medical Decision Making - Medical Decision Making Patient presents with shortness of breath. She has significant adventitious breath sounds, and is clearly in severe fluid retention. I have ordered her a dose of IV Lasix. Patient will be admitted to the hospital. - Lab Data Result diagrams: 07/30/21 18:52 07/30/21 18:52 Lab Results 07/30/21 07/30/21 07/30/21 Range/Units 18:52 18:52 18:52 WBC 7.4 (3.8-10.6) k/uL RBC 4.28 (3.80-5.40) m/uL Hgb 12.7 (11.4-16.0) gm/dL Hct 38.8 (34.0-46.0) % MCV 90.5 (80.0-100.0) fL MCH 29.7 (25.0-35.0) pg MCHC 32.8 (31.0-37.0) g/dL RDW 15.8 H (11.5-15.5) % Plt Count 139 L (150-450) k/uL MPV 10.5 Neutrophils % 81 % Lymphocytes % 12 % Monocytes % 4 % Eosinophils % 1 % Basophils % 0 % Neutrophils # 6.0 (1.3-7.7) k/uL Lymphocytes # 0.9 L (1.0-4.8) k/uL Monocytes # 0.3 (0-1.0) k/uL Eosinophils # 0.1 (0-0.7) k/uL Basophils # 0.0 (0-0.2) k/uL Hypochromasia Slight PT 11.7 (9.0-12.0) sec INR 1.1 (<1.2) APTT 24.2 (22.0-30.0) sec Sodium 136 L (137-145) mmol/L Potassium 4.4 (3.5-5.1) mmol/L Chloride 104 (98-107) mmol/L Carbon Dioxide 25 (22-30) mmol/L Anion Gap 7 mmol/L BUN 18 H (7-17) mg/dL Creatinine 0.61 (0.52-1.04) mg/dL Est GFR (CKD-EPI)AfAm >90 (>60 ml/min/1.73 sqM) Est GFR (CKD-EPI)NonAf >90 (>60 ml/min/1.73 sqM) Glucose 177 H (74-99) mg/dL Calcium 8.8 (8.4-10.2) mg/dL Magnesium 1.7 (1.6-2.3) mg/dL Total Bilirubin 0.8 (0.2-1.3) mg/dL AST 36 (14-36) U/L ALT 27 (4-34) U/L Alkaline Phosphatase 75 (38-126) U/L NT-Pro-B Natriuret Pep pg/mL Total Protein 6.7 (6.3-8.2) g/dL Albumin 3.6 (3.5-5.0) g/dL 07/30/21 Range/Units 18:52 WBC (3.8-10.6) k/uL RBC (3.80-5.40) m/uL Hgb (11.4-16.0) gm/dL Hct (34.0-46.0) % MCV (80.0-100.0) fL MCH (25.0-35.0) pg MCHC (31.0-37.0) g/dL RDW (11.5-15.5) % Plt Count (150-450) k/uL MPV Neutrophils % % Lymphocytes % % Monocytes % % Eosinophils % % Basophils % % Neutrophils # (1.3-7.7) k/uL Lymphocytes # (1.0-4.8) k/uL Monocytes # (0-1.0) k/uL Eosinophils # (0-0.7) k/uL Basophils # (0-0.2) k/uL Hypochromasia PT (9.0-12.0) sec INR (<1.2) APTT (22.0-30.0) sec Sodium (137-145) mmol/L Potassium (3.5-5.1) mmol/L Chloride (98-107) mmol/L Carbon Dioxide (22-30) mmol/L Anion Gap mmol/L BUN (7-17) mg/dL Creatinine (0.52-1.04) mg/dL Est GFR (CKD-EPI)AfAm (>60 ml/min/1.73 sqM) Est GFR (CKD-EPI)NonAf (>60 ml/min/1.73 sqM) Glucose (74-99) mg/dL Calcium (8.4-10.2) mg/dL Magnesium (1.6-2.3) mg/dL Total Bilirubin (0.2-1.3) mg/dL AST (14-36) U/L ALT (4-34) U/L Alkaline Phosphatase (38-126) U/L NT-Pro-B Natriuret Pep 3400 pg/mL Total Protein (6.3-8.2) g/dL Albumin (3.5-5.0) g/dL 07/30/21 19:24 Twelve-lead EKG shows ventricular rate 67 bpm, no P waves are present, no ST elevation or depression, QRS, axis are wide, interpreted by me as electronic ventricular pacemaker. Disposition Clinical Impression: Heart failure Disposition: ADMITTED IP TO THIS HOSP Condition: Serious Is patient prescribed a controlled substance at d/c from ED?: No Referrals: Costa Falcon [Primary Care Provider] - 1-2 days
[2021-07-30] MEDS ORDERED: ONDANSETRON 4 MG/2 ML VIAL IVP PRN (19:25)
[2021-07-30] MEDS ORDERED: NALOXONE 0.4 MG/ML 1 ML VIAL IV PRN (19:25)
[2021-07-30] MEDS ORDERED: MAG HYDROX/AL HYDROX/SIMETH 30 ML CUP PO PRN (19:25)
[2021-07-30] MEDS ORDERED: HYDROcodone/APAP 5-325MG 1 EACH TAB PO PRN (19:27)
[2021-07-30] MEDS ORDERED: ARTIFICIAL TEARS-HYPROMELLOSE DROPS 15 ML BTL BOTH EYES PRN (19:27)
[2021-07-30] MEDS ORDERED: FUROSEMIDE 10 MG/ML 4 ML VIAL IV STA (20:03)
[2021-07-30] MEDS: APIXABAN 5 MG TAB PO SCH (20:19)
[2021-07-30] MEDS: carvediloL 3.125 MG TAB PO SCH (20:19)
[2021-07-30 22:51] LABS: Glucose,Whole Blood 145 mg/dL (70-110)
[2021-07-30] MEDS ORDERED: VANCOMYCIN IV PER PHARMACY 1 EACH MISC MISCELLANE PRN (23:16)
--- NOTE | 2021-07-30 23:16 | P.HPIM ---
History of Present Illness H&P Date: 07/30/21 The patient is a 45-year-old female with an extensive imaging including pulmonary sarcoidosis, systolic CHF status post AICD, type II DM, A. fib, with multiple recent hospitalizations who presents to the emergency room with complaints of shortness of breath. The patient was recently hospitalized from 07/14 to 07/25 for sepsis, subsequently diagnosed MRSA bacteremia with TEODORO showing AICD lead vegetation. The patient had infected lead replaced and she was discharged home with a PICC line for 6-8 week course of antibiotics. The patient reports however that shortly after returning home, she was unable to perform basic tasks like walking to the restroom due to worsening dyspnea on exertion. She also reports worsening lower extremity edema, for which she was evaluated by her PCP who advised her to go to the emergency room for suspected CHF exacerbation. She denied experiencing chest discomfort, fever, chills, cough. She continues to get IV antibiotic therapy at home via her PICC line. In the emergency room a chest x-ray was consistent with CHF. EKG revealed AV paced rhythm at 67 bpm. Laboratory evaluation was remarkable for a proBNP of 3400 with troponin less than 0.012 and glucose 177. Review of systems: Pertinent positives and negatives as discussed in HPI, a complete review of systems was performed and all other systems are negative. Physical examination: General: non toxic, no distress, appears older than stated age, obese Derm: no unusual rashes/lesions, warm Head: atraumatic, normocephalic, symmetric Eyes: EOMI, no lid lag, anicteric sclera, pupils equal round reactive to light ENT: Nose and ears atraumatic Neck: No cervical lymphadenopathy, trachea midline, supple Mouth: no lip lesion, mucus membranes moist Cardiovascular: S1S2 reg, no murmur, positive dorsalis pedis pulse bilateral, 2+ bilateral lower extremity pitting edema Lungs: Bibasilar rales, no rhonchi or wheezing, no accessory muscle use Abdominal: soft, nontender to palpation, no guarding Ext: muscle strength 4 out of 5 in all 4 extremities grossly, no gross muscle atrophy, no contractures, Neuro: CN II-XI grossly intact, no gross focal neuro deficits Psych: Alert, oriented, appropriate affect Assessment/plan Acute systolic CHF exacerbation -Lasix 40 IV every 12 hourly -Cardiac monitoring -Cardiology consult -Intake and output Recent MRSA bacteremia with pacemaker lead abscess -Continue with vancomycin 2 g every 12 hourly Chronic conditions: A. fib, sarcoidosis, type II DM -Continue with home Eliquis dosing -Insulin sliding scale blood glucose monitoring -Continue with prednisone dosing DVT prophylaxis -Eliquis The patient is admitted with an anticipated greater than 2 midnight stay for evaluation of CHF exacerbation CODE STATUS: Full Code Discussed with: Patient, Mother Anticipated discharge date: 08/01, daily weights, daily weights Anticipated discharge place: Home Past Medical History Past Medical History: Atrial Fibrillation, Heart Failure, Diabetes Mellitus, GI Bleed, Hyperlipidemia, Hypertension, Myocardial Infarction ([place]), Musculoskeletal Disorder, Pneumonia, Skin Disorder, Sleep Apnea/CPAP/BIPAP, Thyroid Disorder Additional Past Medical History / Comment(s): "Have had 6 months of walking Pn eumonia". Hx steroid induced gluacoma(resolved). Neurosarcoidosis, sarcoidosis which caused heart problems. Eczema. Hx [place] Palsy with right facial droop. Hx concussion at age 12, has some learning disablity-problems with spelling. MS. Graves Disease, " 7 auto immune diseases". DDD. CPAP use. "Weakness all over". Diarrhea and occasional blood in stool. "27 lesions on her brain". "INTERMITTENT GI BLEED" AND PROBLEMS SWALLOWING. pacemaker placement 07/21/2021 Last Myocardial Infarction Date:: 11/15/20 History of Any Multi-Drug Resistant Organisms: MRSA Date of last positivie culture/infection: 07/19/21 MDRO Source:: MRSA BLOOD Past Surgical History: AICD, Cholecystectomy, Heart Catheterization Additional Past Surgical History / Comment(s): VENOGRAM W/CINEFLUROSCOPY. Past Anesthesia/Blood Transfusion Reactions: No Reported Reaction Additional Past Anesthesia/Blood Transfusion Reaction / Comment(s): Claustrophobia. Type of Cardiac Device: Permanent Pacemaker, AICD Device Placement Date:: 03/01 Past Psychological History: ADD/ADHD, Anxiety, Depression Smoking Status: Never smoker Past Alcohol Use History: None Reported Past Drug Use History: None Reported - Past Family History Mother Family Medical History: AFIB, Deep Vein Thrombosis (DVT) Father Family Medical History: Osteoarthritis (OA), Thyroid Disorder Medications and Allergies Home Medications Medication Instructions Recorded Confirmed Type metFORMIN HCL [Glucophage] 1,000 mg PO BID-W/MEALS 11/10/17 07/30/21 History Ezetimibe [Zetia] 10 mg PO DAILY 10/06/18 07/30/21 History Apixaban [Eliquis] 5 mg PO BID #180 tab 02/15/19 07/30/21 Rx carvediloL [Coreg] 3.125 mg PO BID #180 tablet 02/16/19 07/30/21 Rx PARoxetine HCL 30 mg PO DAILY 06/23/19 07/30/21 History Artificial Tears-Hypromellose 1 drop BOTH EYES TID PRN 11/13/20 07/30/21 History [Artificial Tear Drops] Albuterol Inhaler [Ventolin Hfa 2 puff INHALATION RT-Q4H PRN 06/26/21 07/30/21 History Inhaler] Acetaminophen [Tylenol] 1,000 mg PO Q4-6H PRN 07/01/21 07/30/21 History Latanoprost/Pf [Latanoprost 0.005% 1 drop RIGHT EYE HS 07/01/21 07/30/21 History Eye Drop] Levothyroxine Sodium [Synthroid] 175 mcg PO DAILY 07/01/21 07/30/21 History Furosemide [Lasix] 40 mg PO DAILY #30 tablet 07/05/21 07/30/21 Rx glipiZIDE [Glucotrol] 5 mg PO AC-BRKFST #30 tab 07/05/21 07/30/21 Rx guaiFENesin-Coden 100-10MG/5ML 10 ml PO TID PRN #1000 ml 07/05/21 07/30/21 Rx [Robitussin AC] HYDROcodone/APAP 5-325MG [[place] 1 tab PO Q6HR PRN 3 Days #12 tab 07/11/21 07/30/21 Rx 5-325] Fenofibrate [Lofibra] 160 mg PO DAILY 07/14/21 07/30/21 History Pantoprazole [Protonix] 40 mg PO AC-BID #60 tab 07/25/21 07/30/21 Rx Vancomycin 2,000 mg IVPB Q12HR each 07/25/21 07/30/21 Rx predniSONE 10 mg PO DAILY 07/30/21 07/30/21 History Allergies Allergy/AdvReac Type Severity Reaction Status Date / Time Jvcomeo-JWT-VyS Reductase AdvReac FACIAL Verified 07/30/21 19:23 Inhibitor NUMBNESS [Fhxfowt-Xee-Fyr Reductase Inhibitor] SEAFOOD Allergy Rash/Hives Uncoded 07/30/21 17:18 Physical Exam Vitals: Vital Signs Temp Pulse Pulse Resp BP BP Pulse Ox 07/30/21 22:46 98.2 F 52 L 18 117/80 100 07/30/21 20:03 58 L 20 136/83 99 07/30/21 19:27 50 L 23 134/113 99 07/30/21 17:11 98.5 F 35 L 18 123/79 96 Intake and Output 07/30/21 07/30/21 07/31/21 14:59 22:59 06:59 Other: Weight 127.006 kg Results CBC & Chem 7: 07/30/21 18:52 07/30/21 18:52 Labs: Abnormal Lab Results - Last 24 Hours (Table) 07/30/21 07/30/21 07/30/21 Range/Units 18:52 18:52 22:50 RDW 15.8 H (11.5-15.5) % Plt Count 139 L (150-450) k/uL Lymphocytes # 0.9 L (1.0-4.8) k/uL Sodium 136 L (137-145) mmol/L BUN 18 H (7-17) mg/dL Glucose 177 H (74-99) mg/dL POC Glucose (mg/dL) 145 H (70-110) mg/dL
[2021-07-31] MEDS: LATANOPROST 0.005% OPHTH DROPS 2.5 ML BTL RIGHT EYE SCH ×2 (00:25→20:36)
[2021-07-31] MEDS ORDERED: VANCOMYCIN 2,250 MG in SODIUM CHLORIDE 0.9% 500 ML 500 ML IVPB ONE (01:00)
[2021-07-31] MEDS: LEVOTHYROXINE 100 MCG TAB PO SCH (06:17)
[2021-07-31] MEDS ORDERED: metFORMIN 500 MG TAB PO SCH (07:30)
[2021-07-31] MEDS ORDERED: glipiZIDE 5 MG TAB PO SCH (07:30)
[2021-07-31 07:32] LABS: Glucose,Whole Blood 117 mg/dL (70-110)
[2021-07-31] MEDS: INSULIN ASPART (NovoLOG) 100 UNIT/ML VIAL SQ SCH ×4 (07:37→20:36)
[2021-07-31] MEDS: ALBUTEROL NEBULIZED 2.5 MG/3 ML INHALATION PRN (07:55)
[2021-07-31] MEDS: EZETIMIBE 10 MG TAB PO SCH (08:47)
[2021-07-31] MEDS: predniSONE 10 MG TAB PO SCH (08:47)
[2021-07-31] MEDS: METOPROLOL SUCCINATE (ER) 25 MG TAB.ER.24H PO SCH (08:47)
[2021-07-31] MEDS: FUROSEMIDE 40 MG TAB PO SCH ×2 (08:47→17:55)
[2021-07-31] MEDS: PANTOPRAZOLE 40 MG TABLET PO SCH ×2 (08:47→17:55)
[2021-07-31] MEDS: APIXABAN 5 MG TAB PO SCH ×2 (08:47→20:36)
[2021-07-31] MEDS: LEVOTHYROXINE 75 MCG TAB PO SCH (08:47)
[2021-07-31] MEDS: FENOFIBRATE 160 MG TAB PO SCH (08:47)
[2021-07-31] MEDS: carvediloL 3.125 MG TAB PO SCH (08:52)
[2021-07-31] MEDS ORDERED: FUROSEMIDE 10 MG/ML 4 ML VIAL IV SCH (09:00)
[2021-07-31] MEDS ORDERED: FUROSEMIDE 40 MG TAB PO SCH (09:00)
--- NOTE | 2021-07-31 09:48 | P.CRDCN ---
History of Present Illness History of present illness: HISTORY OF PRESENT ILLNESS: This is a 45 year old female with a past medical history significant for non- ischemic cardiomyopathy with AICD implantation, paroxysmal atrial fibrillation on anticoagulation with Eliquis, diabetes, hypertension, hyperlipidemia, multiple sclerosis, and cardiac sarcoidosis, recent admission to the hospital 07/14-07/26/2021 for MRSA bacteremia with lead vegetation. Patient follows in the office with Dr. Hinojosa. We have been asked to see the patient in consultation for heart failure. Patient examined at the bedside. Patient had a scheduled appointment at Dr. Robbins office yesterday, Cardiology office was called because patient had symptoms of worsening shortness of breath, dizziness and hypotension, infectious disease office recommend patient get evaluated in the emergency department. Patient endorses worsening shortness of breath, orthopnea, around 20lb weight gain. She states she could not do her daily activities or walk to the bathroom at home without feeling short of breath. She was evaluated in the ER started on IV Lasix. She states she has had significant amount of urination and her breathing has improved. At home she is prescribed Lasix 40mg daily, she states she was missing doses secondary to hypotension. Patient was recently hospitalized from 07/14- 07/26/2021 for sepsis, she was found to have MRSA bacteremia, TEODORO revealed atrial lead vegetation. On 07/21/2021 Patient underwent extraction of the right atrial lead, LV lead and RV ICD lead. She then had implantation of a new RV pacing lead in the RV apex, and Implantation of single-chamber pacemaker generator in the pocket. She was discharged home with a PICC line for 6 week course of antibiotics. DIAGNOSTICS * EKG reveals paced rhythm with underlying atrial flutter * Chest xray cardiomegaly and mild pulmonary congestion increased slightly compared to old exam. * Laboratory data: WBC 7.4, hemoglobin 12.7, platelets 139, sodium 136, potassium 4.4, BUN 18, serum grams or percent, troponin negative 3, BNP 3400, magnesium 1.7 * Current home cardiac medications include Eliquis 5 mg twice a day, that he attend milligrams daily, carvedilol 3.125 mg twice a day * Most recent echocardiogram TEODORO- 07/19/2021 #1. Mobile lesion noted on the probably atrial lead, suggestive of vegetation #2. 3+ mitral regurgitation #3. Severe global left ventricular dysfunction. #4. Left atrial e nlargement. #5. No clot in the left atrial appendage. #6. No evidence of PFO * 2D Echocardiogram 06/2021 revealed EF of 3540%, dilated LV, inferiorbasal akinesis * Patient underwent cardiac catheterization in November 2020 revealing normal coronary arteries * Home medications include prednisone, metformin, glipizide, Coreg 3.125 mg twice a day, Synthroid, Protonix, Lasix 40 mg daily, losartan were, Zetia, Eliquis 5 mg twice a day REVIEW OF SYSTEMS: At the time of my exam: CONSTITUTIONAL: Denies fever or chills. HEENT: Denies blurred vision, vision changes, or eye pain. Denies hemoptysis CARDIOVASCULAR: Denies chest pain. Denies orthopnea. Denies PND. Denies palpitations RESPIRATORY: + shortness of breath. GASTROINTESTINAL: Denies abdominal pain. Denies nausea or vomiting. HEMATOLOGIC: Denies bleeding disorders. GENITOURINARY: Denies any blood in urine. SKIN: Denies pruitis. Denies rash. PHYSICAL EXAM: VITAL SIGNS: Reviewed. GENERAL: Well-developed in no acute distress. HEENT: Head is normocephalic. Pupils are equal, round. Sclerae anicteric. Mucous membranes of the mouth are moist. Neck supple. No JVD LUNGS: Respirations even and unlabored. Lungs diminished in the bases. HEART: Regular rate and rhythm. S1 and S2 heard. Systolic murmur at apex ABDOMEN: Soft. Nondistended. Nontender. EXTREMITIES: Normal range of motion. No clubbing or cyanosis. Peripheral pulses intact. No lower extremity edema NEUROLOGIC: Awake and alert. Oriented x 3. ASSESSMENT: Acute on chronic heart failure with reduced ejection fraction Recent admission for MRSA bacteremia, AICD vegetation Status post extraction of the right atrial lead, extraction of the LV lead, extraction of the RV ICD lead, and implantation of a new RV pacing lead in the RV apex, using the right atrial lead as an access and implantation of single- chamber pacemaker generator in the pocket on 07/21/2021 Nonischemic cardiomyopathy with previous AICD Paroxysmal atrial fibrillation on anticoagulation with Eliquis Cardiac sarcoidosis Hypertension Hyperlipidemia Diabetes mellitus, type 2 PLAN: Increase PO Lasix 40mg BID Discontinue IV Lasix Stop Coreg Start metoprolol succinate 25mg daily Continue home Eliquis, Zetia, Lofibra Continue antibiotics as ordered per infectious disease Patient will need an atrial flutter ablation and BiV implantation, however, secondary to recent infection and continued antibiotics this cannot be performed at this time Recommend infectious disease consult to evaluation patient Monitor patient for additional 24 hours Monitor I/Os, daily weights, renal function and electrolytes Further recommendations based on clinical course Nurse practitioner note has been reviewed by physician. Signing provider agrees with the documented findings, assessment, and plan of care. Past Medical History Past Medical History: Atrial Fibrillation, Heart Failure, Diabetes Mellitus, GI Bleed, Hyperlipidemia, Hypertension, Myocardial Infarction ([place]), Musculoskeletal Disorder, Pneumonia, Skin Disorder, Sleep Apnea/CPAP/BIPAP, Thyroid Disorder Additional Past Medical History / Comment(s): "Have had 6 months of walking Pneumonia". Hx steroid induced gluacoma(resolved). Neurosarcoidosis, sarcoidosis which caused heart problems. Eczema. Hx [place] Palsy with right facial droop. Hx concussion at age 12, has some learning disablity-problems with spelling. MS. Graves Disease, " 7 auto immune diseases". DDD. CPAP use. "Weakness all over". Diarrhea and occasional blood in stool. "27 lesions on her brain". "INTERMITT ENT GI BLEED" AND PROBLEMS SWALLOWING. pacemaker placement 07/21/2021 Last Myocardial Infarction Date:: 11/15/20 History of Any Multi-Drug Resistant Organisms: MRSA Date of last positivie culture/infection: 07/19/21 MDRO Source:: MRSA BLOOD Past Surgical History: AICD, Cholecystectomy, Heart Catheterization Additional Past Surgical History / Comment(s): VENOGRAM W/CINEFLUROSCOPY. Past Anesthesia/Blood Transfusion Reactions: No Reported Reaction Additional Past Anesthesia/Blood Transfusion Reaction / Comment(s): Claustrophobia. Type of Cardiac Device: Permanent Pacemaker, AICD Device Placement Date:: 03/01 Past Psychological History: ADD/ADHD, Anxiety, Depression Smoking Status: Never smoker Past Alcohol Use History: None Reported Past Drug Use History: None Reported - Past Family History Mother Family Medical History: AFIB, Deep Vein Thrombosis (DVT) Father Family Medical History: Osteoarthritis (OA), Thyroid Disorder Medications and Allergies Home Medications Medication Instructions Recorded Confirmed Type metFORMIN HCL [Glucophage] 1,000 mg PO BID-W/MEALS 11/10/17 07/30/21 History Ezetimibe [Zetia] 10 mg PO DAILY 10/06/18 07/30/21 History Apixaban [Eliquis] 5 mg PO BID #180 tab 02/15/19 07/30/21 Rx carvediloL [Coreg] 3.125 mg PO BID #180 tablet 02/16/19 07/30/21 Rx PARoxetine HCL 30 mg PO DAILY 06/23/19 07/30/21 History Artificial Tears-Hypromellose 1 drop BOTH EYES TID PRN 11/13/20 07/30/21 History [Artificial Tear Drops] Albuterol Inhaler [Ventolin Hfa 2 puff INHALATION RT-Q4H PRN 06/26/21 07/30/21 History Inhaler] Acetaminophen [Tylenol] 1,000 mg PO Q4-6H PRN 07/01/21 07/30/21 History Latanoprost/Pf [Latanoprost 0.005% 1 drop RIGHT EYE HS 07/01/21 07/30/21 History Eye Drop] Levothyroxine Sodium [Synthroid] 175 mcg PO DAILY 07/01/21 07/30/21 History Furosemide [Lasix] 40 mg PO DAILY #30 tablet 07/05/21 07/30/21 Rx glipiZIDE [Glucotrol] 5 mg PO AC-BRKFST #30 tab 07/05/21 07/30/21 Rx guaiFENesin-Coden 100-10MG/5ML 10 ml PO TID PRN #1000 ml 07/05/21 07/30/21 Rx [Robitussin AC] HYDROcodone/APAP 5-325MG [[place] 1 tab PO Q6HR PRN 3 Days #12 tab 07/11/21 07/30/21 Rx 5-325] Fenofibrate [Lofibra] 160 mg PO DAILY 07/14/21 07/30/21 History Pantoprazole [Protonix] 40 mg PO AC-BID #60 tab 07/25/21 07/30/21 Rx Vancomycin 2,000 mg IVPB Q12HR each 07/25/21 07/30/21 Rx predniSONE 10 mg PO DAILY 07/30/21 07/30/21 History Allergies Allergy/AdvReac Type Severity Reaction Status Date / Time Nfhnaxd-XWT-LmX Reductase AdvReac FACIAL Verified 07/30/21 19:23 Inhibitor NUMBNESS [Xydmdzu-Fxr-Egk Reductase Inhibitor] SEAFOOD Allergy Rash/Hives Uncoded 07/30/21 17:18 Physical Exam Vitals: Vital Signs Temp Pulse Pulse Resp BP BP Pulse Ox 07/31/21 05:09 97.7 F 50 L 16 122/68 99 07/31/21 03:37 52 L 18 07/30/21 22:46 98.2 F 52 L 18 117/80 100 07/30/21 20:03 58 L 20 136/83 99 07/30/21 19:27 50 L 23 134/113 99 07/30/21 17:11 98.5 F 35 L 18 123/79 96 Intake and Output 07/30/21 07/31/21 07/31/21 22:59 06:59 14:59 Other: Voiding Method Toilet # Voids 5 Weight 127.006 kg 125.5 kg Results 07/30/21 18:52 07/30/21 18:52 Cardiac Enzymes 07/30/21 07/30/21 07/30/21 Range/Units 18:52 18:52 22:32 AST 36 (14-36) U/L Troponin I <0.012 <0.012 (0.000-0.034) ng/mL 07/31/21 Range/Units 06:06 AST (14-36) U/L Troponin I 0.025 (0.000-0.034) ng/mL Coagulation 07/30/21 Range/Units 18:52 PT 11.7 (9.0-12.0) sec APTT 24.2 (22.0-30.0) sec CBC 07/30/21 Range/Units 18:52 WBC 7.4 (3.8-10.6) k/uL RBC 4.28 (3.80-5.40) m/uL Hgb 12.7 (11.4-16.0) gm/dL Hct 38.8 (34.0-46.0) % Plt Count 139 L (150-450) k/uL Comprehensive Metabolic Panel 07/30/21 Range/Units 18:52 Sodium 136 L (137-145) mmol/L Potassium 4.4 (3.5-5.1) mmol/L Chloride 104 (98-107) mmol/L Carbon Dioxide 25 (22-30) mmol/L BUN 18 H (7-17) mg/dL Creatinine 0.61 (0.52-1.04) mg/dL Glucose 177 H (74-99) mg/dL Calcium 8.8 (8.4-10.2) mg/dL AST 36 (14-36) U/L ALT 27 (4-34) U/L Alkaline Phosphatase 75 (38-126) U/L Total Protein 6.7 (6.3-8.2) g/dL Albumin 3.6 (3.5-5.0) g/dL Current Medications Generic Name Dose Route Start Last Admin Trade Name Freq PRN Reason Stop Dose Admin Hydrocodone Bitart/Acetaminophen 1 each 07/30/21 19:27 Hydrocodone/Apap 5-325mg 1 Each Tab PO Q6HR PRN Pain Al Hydroxide/Mg Hydroxide 15 ml 07/30/21 19:25 Mag Hydrox/Al Hydrox/Simeth 30 Ml Cup PO Q6HR PRN Indigestion Albuterol Sulfate 2.5 mg 07/30/21 19:27 Albuterol Nebulized 2.5 Mg/3 Ml INHALATION RT-Q4H PRN Shortness Of Breath Apixaban 5 mg 07/30/21 21:00 07/30/21 20:19 Apixaban 5 Mg Tab PO 5 mg BID JOHN PAUL Administration Protocol Artificial Tears 1 drops 07/30/21 19:27 Artificial Tears-Hypromellose Drops 15 Ml Btl BOTH EYES TID PRN Dry Eye(s) Carvedilol 3.125 mg 07/30/21 21:00 07/30/21 20:19 Carvedilol 3.125 Mg Tab PO 3.125 mg AC-BID JOHN PAUL Administration Ezetimibe 10 mg 07/31/21 09:00 Ezetimibe 10 Mg Tab PO DAILY JOHN PAUL Fenofibrate 160 mg 07/31/21 09:00 Fenofibrate 160 Mg Tab PO DAILY JOHN PAUL Furosemide 40 mg 07/31/21 09:00 Furosemide 10 Mg/Ml 4 Ml Vial IV Q12HR JOHN PAUL Vancomycin HCl 2,250 mg/ 500 mls @ 167 mls/hr 07/31/21 12:00 Sodium Chloride IVPB Q12H JOHN PAUL Insulin Aspart 0 unit 07/31/21 07:30 Insulin Aspart (Novolog) 100 Unit/Ml Vial SQ ACHS JOHN PAUL Protocol Latanoprost 1 drops 07/30/21 21:00 07/31/21 00:25 Latanoprost 0.005% Ophth Drops 2.5 Ml Btl RIGHT EYE 1 drops HS JOHN PAUL Administration Levothyroxine Sodium 100 mcg 07/31/21 06:30 07/31/21 06:17 Levothyroxine 100 Mcg Tab PO 100 mcg DAILY@0630 JOHN PAUL Administration Levothyroxine Sodium 75 mcg 07/31/21 06:30 Levothyroxine 75 Mcg Tab PO DAILY@0630 [facility] Miscellaneous Information 1 each 07/30/21 23:16 Vancomycin Iv Per Pharmacy 1 Each Misc MISCELLANE DIRECTED PRN Per Protocol Protocol Naloxone HCl 0.2 mg 07/30/21 19:25 Naloxone 0.4 Mg/Ml 1 Ml Vial IV Q2M PRN Opioid Reversal Ondansetron HCl 4 mg 07/30/21 19:25 Ondansetron 4 Mg/2 Ml Vial IVP Q8HR PRN Nausea And Vomiting Pantoprazole Sodium 40 mg 07/31/21 07:30 Pantoprazole 40 Mg Tablet PO AC-BID [facility] Paroxetine HCl 30 mg 07/31/21 09:00 Paroxetine 10 Mg Tab PO DAILY [facility] Prednisone 10 mg 07/31/21 09:00 Prednisone 10 Mg Tab PO DAILY [facility] Intake and Output 07/30/21 07/31/21 07/31/21 22:59 06:59 14:59 Other: Voiding Method Toilet # Voids 5 Weight 127.006 kg 125.5 kg 07/30/21 18:52 07/30/21 18:52
[2021-07-31] MEDS: PARoxetine 10 MG TAB PO SCH (11:31)
[2021-07-31] MEDS: VANCOMYCIN 2,000 MG in SODIUM CHLORIDE 0.9% 500 ML 500 ML IVPB SCH (11:32)
[2021-07-31 11:49] LABS: Glucose,Whole Blood 185 mg/dL (70-110)
[2021-07-31] MEDS ORDERED: VANCOMYCIN 2,250 MG in SODIUM CHLORIDE 0.9% 500 ML 500 ML IVPB SCH (12:00)
--- NOTE | 2021-07-31 14:26 | P.PN ---
Subjective Progress Note Date: 07/31/21 Principal diagnosis: sob Patient states that she is currently feeling alot better compared to when she came in. Breathing is improved and she is not gasping for air now. No fevers. No chills. No chest pain. Objective - Vital Signs Vital signs: Vital Signs Temp 98.6 F 07/31/21 11:44 Pulse 39 L 07/31/21 11:44 Resp 18 07/31/21 11:44 BP 127/82 07/31/21 11:44 Pulse Ox 94 L 07/31/21 11:44 FiO2 Intake & Output 07/30/21 07/31/21 07/31/21 18:59 06:59 18:59 Weight 127.006 kg 125.5 kg Other: Voiding Method Toilet Toilet # Voids 5 - Exam Constitutional: No acute distress, conversant, pleasant Eyes:Anicteric sclerae, moist conjunctiva, no lid-lag, PERRLA, ENMT: Oropharynx clear, no erythema, exudates Neck: Supple, FROM, no masses, or JVD, No carotid bruits, No thyromegaly Lungs: Clear to auscultation, Clear to percussion, Normal respiratory effort, no accessory muscle use Cardiovascular: Heart regular in rate and rhythm, No murmurs, gallops, or rubs, 2+ peripheral edema Abdominal: Soft, Nontender, no guarding, rebound or rigidity, Normoactive bowel sounds, No hepatomegaly, No splenomegaly, No palpable mass Skin: Normal temperature, tone, texture, turgor, no induration, No subcutaneous nodules, No rash, lesions, No ulcers Extremities: No digital cyanosis, No clubbing, Pedal pulses intact and symmetrical, Radial pulses intact and symmetrical, No calf tenderness Psychiatric: Alert and oriented to person, place and time, appropriate affect, intact judgement Neuro: Muscles Strength 5/5 in all 4 extremities, Sensation to light touch grossly present throughout, Cranial nerves II-XII grossly intact, no focal sensory deficits - Labs CBC & Chem 7: 07/30/21 18:52 07/30/21 18:52 Labs: Abnormal Lab Results - Last 24 Hours (Table) 07/30/21 07/30/21 07/30/21 Range/Units 18:52 18:52 22:50 RDW 15.8 H (11.5-15.5) % Plt Count 139 L (150-450) k/uL Lymphocytes # 0.9 L (1.0-4.8) k/uL Sodium 136 L (137-145) mmol/L BUN 18 H (7-17) mg/dL Glucose 177 H (74-99) mg/dL POC Glucose (mg/dL) 145 H (70-110) mg/dL 07/31/21 07/31/21 Range/Units 07:31 11:47 RDW (11.5-15.5) % Plt Count (150-450) k/uL Lymphocytes # (1.0-4.8) k/uL Sodium (137-145) mmol/L BUN (7-17) mg/dL Glucose (74-99) mg/dL POC Glucose (mg/dL) 117 H 185 H (70-110) mg/dL Assessment and Plan Plan: Acute systolic CHF exacerbation Hx of nonischemic cardiomyopathy with previous AICD -Seen by cardio, resumed on oral lasix 40 every 12 hourly -Cardio d/bianca cored and started her on metoprolol. -Cardiac monitoring -Intake and output Recent MRSA bacteremia with pacemaker lead abscess -Continue with vancomycin 2 g every 12 hourly -Consult ID Paroxysmal atrial fibrillation on anticoagulation with Eliquis Resume eliquis Chronic conditions: A. fib, sarcoidosis, type II DM -Continue with home Eliquis dosing -Insulin sliding scale blood glucose monitoring -Continue with prednisone dosing DVT prophylaxis -Eliquis CODE STATUS: Full Code Discussed with: Patient, Mother Anticipated discharge date: 08/01, daily weights, daily weights Anticipated discharge place: Home
[2021-07-31 17:29] LABS: Glucose,Whole Blood 188 mg/dL (70-110)
[2021-07-31 20:17] LABS: Glucose,Whole Blood 141 mg/dL (70-110)
--- NOTE | 2021-07-31 23:20 | P.CONS ---
History of Present Illness - Reason for Consult Consult date: 07/31/21 Recent MRSA bacteremia Requesting physician: Jeannette Lorenzo - Chief Complaint shortness of breath and lower extremity swelling x few days - History of Present Illness History of Present Illness : Patient is a 45-year-old female who was recently admitted at this facility patient did have evidence of MRSA bacteremia secondary to AICD lead vegetation in this patient who is status post removal of the lead and placement of a temporary wire patient did clear her bacteremia and was discharged home on IV vancomycin pharmacy to dose with the patient was currently taking at home since 07/26/2021 patient presented back to the hospital yesterday evening for evaluation of increasing shortness of breath and weight gain that has been getting worse for a day or 2 before presentation to the hospital patient did have shortness of breath on minimal exertion patient denies having any chest pain no significant cough or sputum production denies any nausea vomiting abdominal pain admission did have significant weight gain patient on presentation to the hospital was afebrile and no fever had recorded subsequently she did have evidence of bradycardia arrhythmia no hypotension though troponin was negative white count was normal kidney function was normal liver enzymes are normal NT proBNP was 3400 patient has been admitted for management of underlying cardiac condition has been continued on vancomycin infectious disease was consulted for further management patient admits that she was taking her antibiotic regularly at home without missing the dose of blood culture done at this admission Review of system: CONSTITUTIONAL: Positive for weakness denies fever. EYES: No complaint. ENT: No complaint. RESPIRATORY: As per history of present illness CARDIOVASCULAR: As per history of present illness. GENITOURINARY: No complaint. GASTROINTESTINAL: No complaint. MUSCULOSKELETAL: No complaint. INTEGUMENTARY : No complaint. PSYCHOLOGIC: No complaint. ENDOCRINE: No complaint. NEUROLOGIC: No complaint. Past medical history : Reviewed, documented below Past surgical history : Reviewed, documented below Social history: Reviewed, documented below Medications: Reviewed, as documented below EXAMINATION: Vital sigans= Reviewed and documented below GENERAL DESCRIPTION: Middle-aged female lying in bed, no distress. No tachypnea or accessory muscle of respiration use. HEENT: Shows Pallor , no scleral icterus. Oral mucous membrane is dry. NECK: Trachea central, no thyromegaly. LUNGS: Unlabored breathing. Decreased breath sound at the base. No wheeze or crackle. HEART: S1, S2, regular rate and rhythm. ABDOMEN: Soft, no tenderness , guarding or rigidity EXTREMITIES: 2+ edema feet SKIN: No rash, no masses palpable. NEUROLOGICAL: The patient is awake, alert, oriented x3, mood and affect normal. LABS AND RADIOLOGY: Reviewed results see below Assessment : 1patient with MRSA bacteremia secondary to AICD lead vegetation which was subsequently discontinued and the patient has been on vancomycin patient did clear her bacteremia with the last positive blood culture was on 07/19/2021 and did have multiple negative blood cultures afterwards, original plan was 6 weeks of IV vancomycin before the patient could go for placement of another AICD however keeping in mind her cardiac condition and significant bradycardia arrhythmia we may not have that much of time at hand, 2-blood cultures as well as inflammatory markers will be repeated with a.m. lab Plan: 1-vancomycin pharmacy to dose target trough of 15 while watching kidney function and vancomycin trough closely 2-we will discuss further with cardiology if the patient cardiac condition is not stable and need to place dual-chamber pacer may clear her for placement earlier than previously anticipated We will follow on clinical condition and cultures to further adjust medication if needed Thank you for this consultation we will follow the patient along with you Past Medical History Past Medical History: Atrial Fibrillation, Heart Failure, Diabetes Mellitus, GI Bleed, Hyperlipidemia, Hypertension, Myocardial Infarction ([place]), Musculoskeletal Disorder, Pneumonia, Skin Disorder, Sleep Apnea/CPAP/BIPAP, Thyroid Disorder Additional Past Medical History / Comment(s): "Have had 6 months of walking Pneumonia". Hx steroid induced gluacoma(resolved). Neurosarcoidosis, sarcoidosis which caused heart problems. Eczema. Hx [place] Palsy with right facial droop. Hx concussion at age 12, has some learning disablity-problems with spelling. MS. Graves Disease, " 7 auto immune diseases". DDD. CPAP use. "Weakness all over". D iarrhea and occasional blood in stool. "27 lesions on her brain". "INTERMITTENT GI BLEED" AND PROBLEMS SWALLOWING. pacemaker placement 07/21/2021 Last Myocardial Infarction Date:: 11/15/20 History of Any Multi-Drug Resistant Organisms: MRSA Year Discovered:: 07/19/21 MDRO Source:: MRSA BLOOD Past Surgical History: AICD, Cholecystectomy, Heart Catheterization Additional Past Surgical History / Comment(s): VENOGRAM W/CINEFLUROSCOPY. Past Anesthesia/Blood Transfusion Reactions: No Reported Reaction Additional Past Anesthesia/Blood Transfusion Reaction / Comm: Claustrophobia. Type of Cardiac Device: Permanent Pacemaker, AICD Device Placement Date:: 03/01 Past Psychological History: ADD/ADHD, Anxiety, Depression Smoking Status: Never smoker Past Alcohol Use History: None Reported Past Drug Use History: None Reported - Past Family History Mother Family Medical History: AFIB, Deep Vein Thrombosis (DVT) Father Family Medical History: Osteoarthritis (OA), Thyroid Disorder Medications and Allergies Home Medications Medication Instructions Recorded Confirmed Type metFORMIN HCL [Glucophage] 1,000 mg PO BID-W/MEALS 11/10/17 07/30/21 History Ezetimibe [Zetia] 10 mg PO DAILY 10/06/18 07/30/21 History Apixaban [Eliquis] 5 mg PO BID #180 tab 02/15/19 07/30/21 Rx PARoxetine HCL 30 mg PO DAILY 06/23/19 07/30/21 History Artificial Tears-Hypromellose 1 drop BOTH EYES TID PRN 11/13/20 07/30/21 History [Artificial Tear Drops] Albuterol Inhaler [Ventolin Hfa 2 puff INHALATION RT-Q4H PRN 06/26/21 07/30/21 History Inhaler] Acetaminophen [Tylenol] 1,000 mg PO Q4-6H PRN 07/01/21 07/30/21 History Latanoprost/Pf [Latanoprost 0.005% 1 drop RIGHT EYE HS 07/01/21 07/30/21 History Eye Drop] Levothyroxine Sodium [Synthroid] 175 mcg PO DAILY 07/01/21 07/30/21 History glipiZIDE [Glucotrol] 5 mg PO AC-BRKFST #30 tab 07/05/21 07/30/21 Rx guaiFENesin-Coden 100-10MG/5ML 10 ml PO TID PRN #1000 ml 07/05/21 07/30/21 Rx [Robitussin AC] HYDROcodone/APAP 5-325MG [[place] 1 tab PO Q6HR PRN 3 Days #12 tab 07/11/21 07/30/21 Rx 5-325] Fenofibrate [Lofibra] 160 mg PO DAILY 07/14/21 07/30/21 History Pantoprazole [Protonix] 40 mg PO AC-BID #60 tab 07/25/21 07/30/21 Rx Vancomycin 2,000 mg IVPB Q12HR each 07/25/21 07/30/21 Rx predniSONE 10 mg PO DAILY 07/30/21 07/30/21 History Furosemide [Lasix] 40 mg PO BID@0900,1600 #180 tab 08/01/21 Rx Metoprolol Succinate (ER) [Toprol 25 mg PO DAILY #90 tab 08/01/21 Rx XL] Allergies Allergy/AdvReac Type Severity Reaction Status Date / Time Rzghucq-PIP-OeQ Reductase AdvReac FACIAL Verified 07/30/21 19:23 Inhibitor NUMBNESS [Cjersyi-Few-Hvh Reductase Inhibitor] SEAFOOD Allergy Rash/Hives Uncoded 07/30/21 17:18 Physical Exam Vitals: Vital Signs Temp Pulse Pulse Resp BP BP Pulse Ox 07/31/21 08:08 50 L 07/31/21 07:55 50 L 99 07/31/21 05:09 97.7 F 50 L 16 122/68 99 07/31/21 03:37 52 L 18 07/30/21 22:46 98.2 F 52 L 18 117/80 100 07/30/21 20:03 58 L 20 136/83 99 07/30/21 19:27 50 L 23 134/113 99 07/30/21 17:11 98.5 F 35 L 18 123/79 96 Intake and Output 07/30/21 07/31/21 07/31/21 22:59 06:59 14:59 Other: Voiding Method Toilet # Voids 5 Weight 127.006 kg 125.5 kg Results CBC & Chem 7: 08/01/21 06:29 08/01/21 06:29 Labs: Abnormal Lab Results - Last 24 Hours (Table) 07/30/21 07/30/21 07/30/21 Range/Units 18:52 18:52 22:50 RDW 15.8 H (11.5-15.5) % Plt Count 139 L (150-450) k/uL Lymphocytes # 0.9 L (1.0-4.8) k/uL Sodium 136 L (137-145) mmol/L BUN 18 H (7-17) mg/dL Glucose 177 H (74-99) mg/dL POC Glucose (mg/dL) 145 H (70-110) mg/dL 07/31/21 Range/Units 07:31 RDW (11.5-15.5) % Plt Count (150-450) k/uL Lymphocytes # (1.0-4.8) k/uL Sodium (137-145) mmol/L BUN (7-17) mg/dL Glucose (74-99) mg/dL POC Glucose (mg/dL) 117 H (70-110) mg/dL
[2021-08-01] MEDS: VANCOMYCIN 2,000 MG in SODIUM CHLORIDE 0.9% 500 ML 500 ML IVPB SCH ×2 (00:05→13:56)
[2021-08-01] MEDS: LEVOTHYROXINE 100 MCG TAB PO SCH (04:58)
[2021-08-01] MEDS: LEVOTHYROXINE 75 MCG TAB PO SCH (05:00)
[2021-08-01 07:17] LABS: Glucose,Whole Blood 100 mg/dL (70-110)
[2021-08-01] MEDS: INSULIN ASPART (NovoLOG) 100 UNIT/ML VIAL SQ SCH ×3 (07:42→18:09)
[2021-08-01] MEDS: ALBUTEROL NEBULIZED 2.5 MG/3 ML INHALATION PRN ×3 (07:43→15:11)
[2021-08-01 08:33] VITALS: TEMP 98.1
[2021-08-01] MEDS: predniSONE 10 MG TAB PO SCH (09:59)
[2021-08-01] MEDS: FUROSEMIDE 40 MG TAB PO SCH ×2 (09:59→17:15)
[2021-08-01] MEDS: APIXABAN 5 MG TAB PO SCH (09:59)
[2021-08-01] MEDS: FENOFIBRATE 160 MG TAB PO SCH (09:59)
[2021-08-01] MEDS: EZETIMIBE 10 MG TAB PO SCH (09:59)
[2021-08-01] MEDS: PANTOPRAZOLE 40 MG TABLET PO SCH ×2 (09:59→18:10)
[2021-08-01] MEDS: METOPROLOL SUCCINATE (ER) 25 MG TAB.ER.24H PO SCH (10:00)
[2021-08-01] MEDS: PARoxetine 10 MG TAB PO SCH (10:00)
[2021-08-01 10:34] LABS: African American GFR (CKD) 102.5 (60.0-200.0); Anion Gap 11.3 mmol/L (10.00-18.00); BUN/Creat Ratio 17.88 Ratio (12.00-20.00); Blood Urea Nitrogen 14.3 mg/dL (9.0-27.0); Calcium 8.6 mg/dL (8.7-10.3); Carbon Dioxide 29.7 mmol/L (20.0-27.5); Non-African American GFR(CKD) 88.4 (60.0-200.0); Potassium 4.3 mmol/L (3.5-5.5)
--- NOTE | 2021-08-01 11:00 | P.PN ---
Subjective This is a 45 year old female with a past medical history significant for non- ischemic cardiomyopathy with AICD implantation, paroxysmal atrial fibrillation on anticoagulation with Eliquis, diabetes, hypertension, hyperlipidemia, multiple sclerosis, and cardiac sarcoidosis, recent admission to the hospital 07/14-07/26/2021 for MRSA bacteremia with lead vegetation. Patient follows in the office with Dr. Hinojosa. We have been asked to see the patient in consultation for heart failure. Patient presented to the hospital with worsening shortness of breath, dizziness and hypotension, infectious disease office recommend patient get evaluated in the emergency department. Patient endorses worsening shortness of breath, orthopnea, around 20lb weight gain. She states she could not do her daily activities or walk to the bathroom at home without feeling short of breath. Patient was recently hospitalized from 07/14- 07/26/2021 for sepsis, she was found to have MRSA bacteremia, TEODORO revealed atrial lead vegetation. On 07/21/2021 Patient underwent extraction of the right atrial lead, LV lead and RV ICD lead. She then had implantation of a new RV pacing lead in the RV apex, and Implantation of single-chamber pacemaker generator in the pocket. She was discharged home with a PICC line for 6 week course of antibiotics. She was evaluated in the ER started on IV Lasix. She states she has had significant amount of urination and her breathing has improved. At home she is prescribed Lasix 40mg daily, she states she was missing doses secondary to hypotension. 08/01/2021 Patient seen and examined at bedside, no acute distress. She feels much better than yesterday. Slept well. No symptoms of orthopnea or PND. Her shortness of breath has improved. Vital signs are stable. Currently maintained on Eliquis 5mg BID, Zetia 10mg dialy, Lofibra, Lasix 40mg BID, metoprolol succinate 25mg daily. Labs: Na 142, K 4.3, BUN 14, sCr 0.8, Mag 1.6 PHYSICAL EXAM: VITAL SIGNS: Reviewed. GENERAL: Well-developed in no acute distress. HEENT: Neck supple. No JVD LUNGS: Respirations even and unlabored. Lungs diminished in the bases. HEART: Regular rate and rhythm. S1 and S2 heard. Systolic murmur at apex ABDOMEN: Soft. Nondistended. Nontender. EXTREMITIES: Normal range of motion. No clubbing or cyanosis. Peripheral pulses intact. No lower extremity edema NEUROLOGIC: Awake and alert. Oriented x 3. ASSESSMENT: Acute on chronic heart failure with reduced ejection fraction Recent admission for MRSA bacteremia, AICD vegetation Status post extraction of the right atrial lead, extraction of the LV lead, extraction of the RV ICD lead, and implantation of a new RV pacing lead in the RV apex, using the right atrial lead as an access and implantation of single- chamber pacemaker generator in the pocket on 07/21/2021 Nonischemic cardiomyopathy with previous AICD Paroxysmal atrial fibrillation on anticoagulation with Eliquis Cardiac sarcoidosis Hypertension Hyperlipidemia Diabetes mellitus, type 2 PLAN: Continue PO Lasix 40mg BID Continue metoprolol succinate 25mg daily Continue home Eliquis, Zetia, Lofibra Continue antibiotics as ordered per infectious disease Patient will need an atrial flutter ablation and BiV implantation, however, secondary to recent infection and continued antibiotics this will be continued evaluated on timing outpatient in the office. From a cardiology perspective, patient can be discharged home on current medical therapy. Follow up with Dr. Hinojosa outpatient. Nurse practitioner note has been reviewed by physician. Signing provider agrees with the documented findings, assessment, and plan of care. Objective - Vital Signs Vital signs: Vital Signs Temp 98.1 F 08/01/21 08:00 Pulse 50 L 08/01/21 08:00 Resp 18 08/01/21 08:00 BP 145/77 08/01/21 08:00 Pulse Ox 98 08/01/21 08:00 FiO2 21 08/01/21 07:45 Intake & Output 07/31/21 08/01/21 08/01/21 18:59 06:59 18:59 Intake Total 500 118 Balance 500 118 Weight 125 kg 125.6 kg Intake: Intake, IV Titration 500 Amount Vancomycin 2,000 mg In 500 Sodium Chloride 0.9% 500 ml 500 ml @ 167 mls/hr IVPB Q12H [facility] Rx#: [id number] Oral 118 Other: Voiding Method Toilet Toilet - Labs CBC & Chem 7: 07/30/21 18:52 08/01/21 06:29 Labs: Abnormal Lab Results - Last 24 Hours (Table) 07/31/21 07/31/21 07/31/21 Range/Units 11:47 17:07 20:15 Carbon Dioxide (20.0-27.5) mmol/L POC Glucose (mg/dL) 185 H 188 H 141 H (70-110) mg/dL Calcium (8.7-10.3) mg/dL C-Reactive Protein (0.00-0.80) mg/dL 08/01/21 Range/Units 06:29 Carbon Dioxide 29.7 H (20.0-27.5) mmol/L POC Glucose (mg/dL) (70-110) mg/dL Calcium 8.6 L (8.7-10.3) mg/dL C-Reactive Protein 1.00 H (0.00-0.80) mg/dL
[2021-08-01 11:26] LABS: Basophils # (A) 0.04 X 10*3/uL (0.00-0.10); Basophils % (A) 0.6 %; Eosinophils # (A) 0.17 X 10*3/uL (0.04-0.35); Eosinophils % (A) 2.6 %; HCT 35.8 % (37.2-46.3); HGB 11.4 g/dL (12.0-15.0); Immature Grans, Automated 0.3 %; Lymphocytes # (A) 1.31 X 10*3/uL (0.90-5.00); Lymphocytes % (A) 19.8 %; MCH 28.6 pg (27.0-32.0); MCHC 31.8 g/dL (32.0-37.0); MCV 89.7 fL (80.0-97.0); Monocytes # (A) 0.65 X 10*3/uL (0.20-1.00); Monocytes % (A) 9.8 %; NRBC Per 100 WBC 0 /100 WBCS (0.0-0.0); Neutrophils # (A) 4.43 X 10*3/uL (1.80-7.70); Neutrophils % (A) 66.9 %; Platelet Count 98 X 10*3/uL (140-440); RBC 3.99 X 10*6/uL (4.10-5.20); WBC 6.62 X 10*3/uL (4.50-10.00)
--- NOTE | 2021-08-01 12:24 | P.DS ---
Providers Date of admission: 07/30/21 19:25 Expected date of discharge: 08/01/21 Attending physician: Kwan Nixon MD Consults: 07/30/21 19:26 Consult Physician Routine Consulting Provider: Jono Lanier Consult Reason/Comments: heart failure Do you want consulting provider notified?: Yes 07/31/21 08:29 Consult Physician Routine Consulting Provider: Abi Robbins Consult Reason/Comments: recent MRSA bacteremia, antibiotic length eval Do you want consulting provider notified?: Yes Primary care physician: [facility] Course: 45-year-old female with an extensive imaging including pulmonary sarcoidosis, systolic CHF status post AICD, type II DM, A. fib, with multiple recent hospitalizations who presents to the emergency room with complaints of shortness of breath. The patient was recently hospitalized from 07/14 to 07/25 for sepsis, subsequently diagnosed MRSA bacteremia with TEODORO showing AICD lead vegetation. The patient had infected lead replaced and she was discharged home with a PICC line for 6-8 week course of antibiotics. The patient reports however that shortly after returning home, she was unable to perform basic tasks like walking to the restroom due to worsening dyspnea on exertion. She also reports worsening lower extremity edema, for which she was evaluated by her PCP who advised her to go to the emergency room for suspected CHF exacerbation. She denied experiencing chest discomfort, fever, chills, cough. She continues to get IV antibiotic therapy at home via her PICC line. In the emergency room a chest x-ray was consistent with CHF. EKG revealed AV paced rhythm at 67 bpm. Laboratory evaluation was remarkable for a proBNP of 3400 with troponin less than 0.012 and glucose 177. Patient was admitted for further treatment. She was diagnosed with acute COPD She was diagnosed with acute CHF exacerbation, systolic. She was seen by cardiology, was started on diuresis with Lasix 40 mg IV twice a day. Lasix was later switched to oral. She felt much better with the diuresis. Breathing improved significantly. In addition she was started on metoprolol by cardiology. He was continued on vancomycin IV for recent MRSA bacteremia. She was also seen by infectious disease who concurred with the management. Currently she is feeling back at her baseline, she'll be discharged in a stable condition. Time for discharge 35 minutes Patient Condition at Discharge: Serious Plan - Discharge Summary Discharge Rx Participant: Yes New Discharge Prescriptions: New Furosemide [Lasix] 40 mg PO BID@0900,1600 #180 tab Metoprolol Succinate (ER) [Toprol XL] 25 mg PO DAILY #90 tab Continue metFORMIN HCL [Glucophage] 1,000 mg PO BID-W/MEALS Ezetimibe [Zetia] 10 mg PO DAILY Apixaban [Eliquis] 5 mg PO BID #180 tab PARoxetine HCL 30 mg PO DAILY Artificial Tears-Hypromellose [Artificial Tear Drops] 1 drop BOTH EYES TID PRN PRN Reason: Dry Eye(S) Albuterol Inhaler [Ventolin Hfa Inhaler] 2 puff INHALATION RT-Q4H PRN PRN Reason: Shortness Of Breath Levothyroxine Sodium [Synthroid] 175 mcg PO DAILY guaiFENesin-Coden 100-10MG/5ML [Robitussin AC] 10 ml PO TID PRN #1000 ml PRN Reason: Cough Fenofibrate [Lofibra] 160 mg PO DAILY Pantoprazole [Protonix] 40 mg PO AC-BID #60 tab Vancomycin 2,000 mg IVPB Q12HR each predniSONE 10 mg PO DAILY Acetaminophen [Tylenol] 1,000 mg PO Q4-6H PRN PRN Reason: Fever And/ Or Pain Latanoprost/Pf [Latanoprost 0.005% Eye Drop] 1 drop RIGHT EYE HS glipiZIDE [Glucotrol] 5 mg PO AC-BRKFST #30 tab HYDROcodone/APAP 5-325MG [Cameron 5-325] 1 tab PO Q6HR PRN 3 Days #12 tab PRN Reason: Pain Discontinued carvediloL [Coreg] 3.125 mg PO BID #180 tablet Furosemide [Lasix] 40 mg PO DAILY #30 tablet Discharge Medication List metFORMIN HCL [Glucophage] 1,000 mg PO BID-W/MEALS 11/10/17 [History] Ezetimibe [Zetia] 10 mg PO DAILY 10/06/18 [History] Apixaban [Eliquis] 5 mg PO BID #180 tab 02/15/19 [Rx] PARoxetine HCL 30 mg PO DAILY 06/23/19 [History] Artificial Tears-Hypromellose [Artificial Tear Drops] 1 drop BOTH EYES TID PRN 11/13/20 [History] Albuterol Inhaler [Ventolin Hfa Inhaler] 2 puff INHALATION RT-Q4H PRN 06/26/21 [History] Acetaminophen [Tylenol] 1,000 mg PO Q4-6H PRN 07/01/21 [History] Latanoprost/Pf [Latanoprost 0.005% Eye Drop] 1 drop RIGHT EYE HS 07/01/21 [History] Levothyroxine Sodium [Synthroid] 175 mcg PO DAILY 07/01/21 [History] glipiZIDE [Glucotrol] 5 mg PO AC-BRKFST #30 tab 07/05/21 [Rx] guaiFENesin-Coden 100-10MG/5ML [Robitussin AC] 10 ml PO TID PRN #1000 ml 07/05/21 [Rx] HYDROcodone/APAP 5-325MG [Cameron 5-325] 1 tab PO Q6HR PRN 3 Days #12 tab 07/11/21 [Rx] Fenofibrate [Lofibra] 160 mg PO DAILY 07/14/21 [History] Pantoprazole [Protonix] 40 mg PO AC-BID #60 tab 07/25/21 [Rx] Vancomycin 2,000 mg IVPB Q12HR each 07/25/21 [Rx] predniSONE 10 mg PO DAILY 07/30/21 [History] Furosemide [Lasix] 40 mg PO BID@0900,1600 #180 tab 08/01/21 [Rx] Metoprolol Succinate (ER) [Toprol XL] 25 mg PO DAILY #90 tab 08/01/21 [Rx] Follow up Appointment(s)/Referral(s): Erasto Hinojosa MD [STAFF PHYSICIAN] - 08/07/21 9:15 am (This is a previously scheduled appointment. It will be at the [facility] office.) [facility] Visiting Nurse, [NON-STAFF] - 1 Week Costa Falcon [Primary Care Provider] - 08/05/21 9:30 am Activity/Diet/Wound Care/Special Instructions: Cardiology Instructions: Changes to your medications include: -Stop Carvedilol (Coreg) -Take metoprolol succinate (Toprol XL) 25mg daily -Take furosemide (Lasix) 40mg twice a day, once in the morning and once around 2pm -Follow up with Dr. Hinojosa in the office in 2-3 weeks.
[2021-08-01 12:27] LABS: Glucose,Whole Blood 144 mg/dL (70-110)
[2021-08-01 13:02] VITALS: BP 118/62; RESP 16
[2021-08-01 15:15] VITALS: PULSE 51
[2021-08-01 17:01] LABS: Glucose,Whole Blood 233 mg/dL (70-110)
[2021-08-02] MEDS ORDERED: VANCOMYCIN TROUGH DUE 1 EACH MISC MISCELLANE ONE (11:00)
--- NOTE | 2021-08-05 09:44 | CDI ---
Documentation Clarification Form Date: 08/05/21 From: Chrissy Guillaume Admit Date: 07/30/2021 07:25:00 PM Patient Name: Bernice Tran Visit Number: [id number] Discharge Date: 08/01/2021 06:44:00 PM ATTENTION: The Clinical Documentation Specialists (CDI) and [facility] Coding Staff appreciate your assistance in clarifying documentation. Please respond to the clarification below the line at the bottom and electronically sign. The CDI & [facility] Coding staff will review the response and follow-up if needed. Please note: Queries are made part of the Legal Health Record. If you have any questions, please contact the author of this message via ITS. Dr. Erasto Hinojosa, Atrial Flutter is documented in your consult. Additional clarification regarding the type of Atrial Flutter is requested. History/Risk factors: HTN w acute on chronic systolic CHF, ACID vegetation, neurosarcoidosis, sarcoidosis of lung and heart, non-ischemic cardiomyopathy, PAF, MS, COPD, HLD, DM w peripheral neuropathy Clinical Indicators: Continue antibiotics as ordered per infectious disease. Patient will need an atrial flutter ablation and BiV implantation, however, secondary to recent infection and continued antibiotics this will be continued evaluated on timing outpatient in the office. EKG/telemetry: EKG reveals paced rhythm with underlying atrial flutter Treatment: continue antibiotics, Eliquis 5mg PO BID Please clarify the type of Atrial Flutter, if known: [ ] Typical/Type I [ ] Atypical/Type II [ ] Other, please specify [ ] Unable to determine MTDD
--- NOTE | 2021-08-09 00:04 | P.PN ---
Subjective Progress Note Date: 08/01/21 Principal diagnosis: MRSA bacteremia secondary to AICD lead infection Patient is a 45-year-old female with a recent admission to the hospital with sepsis secondary to MRSA bacteremia from AICD lead vegetation status post removal of the infected lead patient did clear her bacteremia with subsequent admission the hospital for fluid overload. On today's evaluation that is 08/01/2021, the patient denies having any fever or chills, patient is breathing more comfortably, patient denies having any chest pain or shortness with occasional cough no abdominal pain no diarrhea Objective - Vital Signs Vital signs: Vital Signs Temp 98.1 F 08/01/21 08:00 Pulse 50 L 08/01/21 08:00 Resp 18 08/01/21 08:00 BP 145/77 08/01/21 08:00 Pulse Ox 98 08/01/21 08:00 FiO2 21 08/01/21 07:45 Intake & Output 07/31/21 08/01/21 08/01/21 18:59 06:59 18:59 Intake Total 500 118 Balance 500 118 Weight 125 kg 125.6 kg Intake: Intake, IV Titration 500 Amount Vancomycin 2,000 mg In 500 Sodium Chloride 0.9% 500 ml 500 ml @ 167 mls/hr IVPB Q12H [facility] Rx#: [id number] Oral 118 Other: Voiding Method Toilet Toilet - Exam GENERAL DESCRIPTION: Middle-age female lying in bed in no distress RESPIRATORY SYSTEM: Unlabored breathing , decreased breath sounds at bases HEART: S1 S2 regular rate and rhythm , ABDOMEN: Soft , no tenderness EXTREMITIES: No edema feet - Labs CBC & Chem 7: 08/01/21 06:29 08/01/21 06:29 Labs: Abnormal Lab Results - Last 24 Hours (Table) 07/31/21 07/31/21 07/31/21 Range/Units 11:47 17:07 20:15 Carbon Dioxide (20.0-27.5) mmol/L POC Glucose (mg/dL) 185 H 188 H 141 H (70-110) mg/dL Calcium (8.7-10.3) mg/dL C-Reactive Protein (0.00-0.80) mg/dL 08/01/21 Range/Units 06:29 Carbon Dioxide 29.7 H (20.0-27.5) mmol/L POC Glucose (mg/dL) (70-110) mg/dL Calcium 8.6 L (8.7-10.3) mg/dL C-Reactive Protein 1.00 H (0.00-0.80) mg/dL Assessment and Plan (1) Infection of pacemaker lead wire Status: Acute Code(s): T82.7XXA - INFECT/INFLM REACT D/T OTH CARDI/VASC DEV/IMPLNT/GRFT, INIT SNOMED Code(s): 283917012 Plan: 1patient with MRSA bacteremia secondary to infected AICD lead status post removal of the infected lead patient did clear her bacteremia with readmission to the hospital for fluid overload patient to continue with the vancomycin pharmacy to dose to finish her six-week course of therapy and continue supportive care Time with Patient: Less than 30
== END 2021-08-01 18:44 | disposition home health service (06) | DRG 291 ==
LOC: EC 16:28 → 4SSUR 19:25 → 5NMEDONC 20:57
PROVIDERS: ADMIT Hospitalist; ATTEND Hospitalist
DX: I11.0 Hypertensive heart disease with heart failure (principal); I50.23 Acute on chronic systolic (congestive) heart failure; I33.0 Acute and subacute infective endocarditis; I48.92 Unspecified atrial flutter; I42.8 Other cardiomyopathies; D86.0 Sarcoidosis of lung; I48.0 Paroxysmal atrial fibrillation; G35 Multiple sclerosis; D86.85 Sarcoid myocarditis; Z79.01 Long term (current) use of anticoagulants; D86.89 Sarcoidosis of other sites; J44.9 Chronic obstructive pulmonary disease, unspecified; E78.5 Hyperlipidemia, unspecified; E11.9 Type 2 diabetes mellitus without complications; I95.9 Hypotension, unspecified; E05.00 Thyrotoxicosis with diffuse goiter without thyrotoxic crisis or storm; F81.81 Disorder of written expression; F32.A Depression, unspecified; F90.9 Attention-deficit hyperactivity disorder, unspecified type; L30.9 Dermatitis, unspecified; I25.2 Old myocardial infarction; Z79.84 Long term (current) use of oral hypoglycemic drugs; Z79.890 Hormone replacement therapy; Z79.899 Other long term (current) drug therapy; Z87.19 Personal history of other diseases of the digestive system; Z86.69 Personal history of other diseases of the nervous system and sense organs; Z87.820 Personal history of traumatic brain injury; Z95.810 Presence of automatic (implantable) cardiac defibrillator; Z86.14 Personal history of Methicillin resistant Staphylococcus aureus infection; Z90.49 Acquired absence of other specified parts of digestive tract; Z86.19 Personal history of other infectious and parasitic diseases; Z98.890 Other specified postprocedural states; Z88.8 Allergy status to other drugs, medicaments and biological substances; Z91.013 Allergy to seafood; Z82.49 Family history of ischemic heart disease and other diseases of the circulatory system; Z83.2 Family history of diseases of the blood and blood-forming organs and certain disorders involving the immune mechanism; Z82.61 Family history of arthritis; Z83.49 Family history of other endocrine, nutritional and metabolic diseases
CPT/HCPCS: 36415; 71045; 80048; 80053; 83735; 83880; 84145; 84484; 85025; 85610; 85730; 86140; 87040; 93005; 94640; 94760; 96374; 99285

== ENCOUNTER 2021-08-12 16:47 | Inpatient (IN) | payer OTHER ==
[~2021-08-12 16:47] MED LIST changes: -ALBUTEROL NEB (CONC) 2.5 MG/0.5 ML INHALATION ONE; +CALCIUM CHLORIDE 100 MG/ML 10 ML SYRINGE ONE; +EPINEPHrine 10 ML SYRINGE (0.1 MG/ML) ONE; -LACTATED RINGERS 1,000 ML IV SCH; -LIDOCAINE 2% (PF) 20 MG/ML 5 ML VIAL INHALATION ONE; -LIDOCAINE VISCOUS 300 MG/15 ML CUP MUCOUS MEM ONE
[2021-08-12] MEDS ORDERED: EPINEPHrine 4 MG in DEXTROSE 5% IN WATER 250 ML IV ONE ×2 (16:55)
[2021-08-12 16:59] LABS: Glucose,Whole Blood 246 mg/dL (70-110)
[2021-08-12] MEDS ORDERED: ASPIRIN 300 MG SUPP RECTAL STA (17:18)
[2021-08-12 17:25] LABS: Albumin 3.7 g/dL (3.5-5.0); Calcium 10.3 mg/dL (8.4-10.2); Potassium 4.1 mmol/L (3.5-5.1); Total Bilirubin 1.1 mg/dL (0.2-1.3); Total Protein 6.7 g/dL (6.3-8.2)
[2021-08-12] MEDS ORDERED: PROPOFOL 10 MG/ML 20 ML VIAL IV ONE ×2 (17:26→18:03)
[2021-08-12 17:28] LABS: Basophils # (A) 0.1 k/uL (0-0.2); Basophils % (A) 1 %; Eosinophils # (A) 0.1 k/uL (0-0.7); Eosinophils % (A) 1 %; HCT 38.2 % (34.0-46.0); HGB 12.1 gm/dL (11.4-16.0); Hypochromasia Marked; Lymphocytes # (A) 3.9 k/uL (1.0-4.8); Lymphocytes % (A) 36 %; MCH 29.4 pg (25.0-35.0); MCHC 31.8 g/dL (31.0-37.0); MCV 92.5 fL (80.0-100.0); Mean Platelet Volume 11.4; Monocytes # (A) 0.5 k/uL (0-1.0); Monocytes % (A) 5 %; Neutrophils # (A) 6.1 k/uL (1.3-7.7); Neutrophils % (A) 56 %; Platelet Count 136 k/uL (150-450); RBC 4.13 m/uL (3.80-5.40); RDW 15.2 % (11.5-15.5)
[2021-08-12 17:29] LABS: INR 1.1 (<1.2); Prothrombin Time 12.1 sec (9.0-12.0)
[2021-08-12 17:32] LABS: Partial Thromboplastin Time 19.8 sec (22.0-30.0)
[2021-08-12] MEDS ORDERED: SODIUM CHLORIDE 0.9% 1,000 ML IV STA (17:36)
--- NOTE | 2021-08-12 17:36 | ED ---
General Adult HPI - General Chief complaint: Cardiac Arrest/CPR Stated complaint: Cardiac arrest Source: patient Mode of arrival: EMS - History of Present Illness Initial comments: Dictation was produced using [employer] dictation software. please excuse any grammatical, word or spelling errors. Chief Complaint: 45-year-old female presents to the emergency department for cardiac arrest. History of Present Illness: 45-year-old female. History of present illness obtained from EMS. Patient allegedly suffered cardiac arrest. Event occurred 5 minutes prior to arrival. EMS reports that suspected down time was approximately 5 minutes. Upon EMS arrival patient was asystole. CPR was started and patient had return of spontaneous circulation. She was found to have a shockable rhythm and was given defibrillation. 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 She was found cyanotic. Return of spontaneous circulation was achieved. According to EMS there was difficulty with extrication due to patient's body habitus and patient's home environment. It took 20 minutes to get patient out from her place of residence to the ambulance truck. Upon arriving to the ambulance truck patient had loss of pulses. CPR was started again a return of spontaneous circulation was obtained. Patient was intubated prior to arrival to the emergency room. EMS re ports the patient recently had a cardiac pacer placed. Patient was recently admitted to the hospital for acute CHF exacerbation. Patient was given multiple doses of Lasix was admitted for several days. Patient was recently started on IV vancomycin for MRSA bacteremia. She has history of cardiac sarcoidosis and nonischemic cardiomyopathy. It appears that patient is status post extraction of right atrial lead extraction of a late discharge in her RV ICD lead and implantation of no RV pacing lead in the RV apex which is performed July 21 of last month. Patient was allegedly recently discharged and was attempting sexual intercourse when the event occurred. Unable to obtain review of systems security mental status. PHYSICAL EXAM: General Impression: Obtunded, cyanotic HEENT: Normocephalic atraumatic, extra-ocular movements intact, pupils equal and reactive to light bilaterally, dry mucous membranes Cardiovascular: Bradycardic Chest: Bilateral breath sounds with bagged S evaluation Abdomen: , non-distended, bee's abdomen Musculoskeletal: A dusky extremities Motor: No movement Neurological: Pupils 3-4 mm reactive to light Skin: Intact with no visualized rashes ED course: 45-year-old female with multiple cardiac comorbidities presents to the emergency department for cardiac arrest. Patient was received in trauma bay #1. Upon arrival to the emergency department patient was pulseless and CPR was initiated with return of spontaneous circulation patient was given 1 dose of epi, calcium and 2 A of sodium bicarbonate. After several minutes patient lost pulses again however we are did regain return of spontaneous circulation. Patient was placed on a epinephrine drip. Arterial line was successfully placed in the right radial artery. Patient given rectal aspirin. Patient was intubated by prehospital providers. Radial artery line was placed. Patient appeared to be stable on low-dose epinephrine drip. Case was discussed in detail with Dr. Nieto was control system manager for cardiology states that patient is not a candidate for emergent cardiac catheterization due to history of nonischemic heart myopathy and prolonged downtime. Case is discussed with diversified crops ii farmworker, Dr. Sow who is very familiar with the patient. He is agreeable to accept patient to the intensive care unit. Laboratory evaluation obtained. Leukocytosis of 11.0 likely secondary to stress. Coag panel was within acceptable limits. D-dimer is 1.17. Arterial blood gas shows pH of 7.16 with a bicarb of 15 and a normal pCO2 this suggests metabolic acidosis. Metabolic panel shows no gap acidosis. There does appear to be lactic acid level 8.1. Rest of labs within acceptable limits. Chest x- ray shows findings of congestive heart failure and right lower lobe pneumonia which is slightly worse in recent exam. Chest x-ray shows right mainstem intubation. Endotracheal tube was adjusted by being pulled back. Patient be admitted to intensive care unit with consultation cardiology. Patient ree valuated at bedside at 6:20 PM found to be in stable medical condition. Right femoral groin central venous catheter line was placed under ultrasound guidance. Patient on propofol EKG interpretation: Ventricular rate 58, irregular rhythm, obscure perhaps pacer spikes. Polymorphic in a pattern with 2 ventricular beats of significantly different morphology. QRS is widened at 179. Overall this EKG is nonspecific. Patient likely had an arrest event secondary to cardiomyopathy. - Related Data Home Medications Medication Instructions Recorded Confirmed metFORMIN HCL [Glucophage] 1,000 mg PO BID-W/MEALS 11/10/17 07/30/21 Ezetimibe [Zetia] 10 mg PO DAILY 10/06/18 07/30/21 PARoxetine HCL 30 mg PO DAILY 06/23/19 07/30/21 Artificial Tears-Hypromellose 1 drop BOTH EYES TID PRN 11/13/20 07/30/21 [Artificial Tear Drops] Albuterol Inhaler [Ventolin Hfa 2 puff INHALATION RT-Q4H PRN 06/26/21 07/30/21 Inhaler] Acetaminophen [Tylenol] 1,000 mg PO Q4-6H PRN 07/01/21 07/30/21 Latanoprost/Pf [Latanoprost 0.005% 1 drop RIGHT EYE HS 07/01/21 07/30/21 Eye Drop] Levothyroxine Sodium [Synthroid] 175 mcg PO DAILY 07/01/21 07/30/21 Fenofibrate [Lofibra] 160 mg PO DAILY 07/14/21 07/30/21 predniSONE 10 mg PO DAILY 07/30/21 07/30/21 Previous Rx's Medication Instructions Recorded Apixaban [Eliquis] 5 mg PO BID #180 tab 02/15/19 glipiZIDE [Glucotrol] 5 mg PO AC-BRKFST #30 tab 07/05/21 guaiFENesin-Coden 100-10MG/5ML 10 ml PO TID PRN #1000 ml 07/05/21 [Robitussin AC] HYDROcodone/APAP 5-325MG [[place] 1 tab PO Q6HR PRN 3 Days #12 tab 07/11/21 5-325] Pantoprazole [Protonix] 40 mg PO AC-BID #60 tab 07/25/21 Vancomycin 2,000 mg IVPB Q12HR each 07/25/21 Furosemide [Lasix] 40 mg PO BID@0900,1600 #180 tab 08/01/21 Metoprolol Succinate (ER) [Toprol 25 mg PO DAILY #90 tab 08/01/21 XL] Allergies Allergy/AdvReac Type Severity Reaction Status Date / Time Thqndtu-JJZ-MaL Reductase AdvReac FACIAL Verified 07/30/21 19:23 Inhibitor NUMBNESS [Tcxmwou-Pqr-Xjb Reductase Inhibitor] SEAFOOD Allergy Rash/Hives Uncoded 07/30/21 17:18 Review of Systems ROS Statement: Those systems with pertinent positive or pertinent negative responses have been documented in the HPI. ROS Other: All systems not noted in ROS Statement are negative. Past Medical History Past Medical History: Atrial Fibrillation, Heart Failure, Diabetes Mellitus, GI Bleed, Hyperlipidemia, Hypertension, Myocardial Infarction ([place]), Musculoskeletal Disorder, Pneumonia, Skin Disorder, Sleep Apnea/CPAP/BIPAP, Thyroid Disorder Additional Past Medical History / Comment(s): "Have had 6 months of walking Pneumonia". Hx steroid induced gluacoma(resolved). Neurosarcoidosis, sarcoidosis which caused heart problems. Eczema. Hx [place] Palsy with right facial droop. Hx concussion at age 12, has some learning disablity-problems with spelling. MS. Graves Disease, " 7 auto immune diseases". DDD. CPAP use. "Weakness all over". Diarrhea and occasional blood in stool. "27 lesions on her brain". "INTERMITTENT GI BLEED" AND PROBLEMS SWALLOWING. pacemaker placement 07/21/2021 Last Myocardial Infarction Date:: 11/15/20 History of Any Multi-Drug Resistant Organisms: MRSA Date of last positivie culture/infection: 07/19/21 MDRO Source:: MRSA BLOOD Past Surgical History: AICD, Cholecystectomy, Heart Catheterization Additional Past Surgical History / Comment(s): VENOGRAM W/CINEFLUROSCOPY. Past Anesthesia/Blood Transfusion Reactions: No Reported Reaction Additional Past Anesthesia/Blood Transfusion Reaction / Comment(s): [place] hobia. Type of Cardiac Device: Permanent Pacemaker, AICD Device Placement Date:: 03/01 Past Psychological History: ADD/ADHD, Anxiety, Depression Smoking Status: Never smoker Past Alcohol Use History: None Reported Past Drug Use History: None Reported - Past Family History Mother Family Medical History: AFIB, Deep Vein Thrombosis (DVT) Father Family Medical History: Osteoarthritis (OA), Thyroid Disorder Course Vital Signs 08/12/21 08/12/21 08/12/21 17:14 17:21 17:22 Pulse Rate 80 69 Respiratory 18 16 Rate Blood Pressure 125/106 131/99 O2 Sat by Pulse Oximetry Fraction of 100 Inspired Oxygen (FIO2) 08/12/21 08/12/21 17:32 17:53 Pulse Rate 82 Respiratory 16 Rate Blood Pressure 141/82 O2 Sat by Pulse 100 Oximetry Fraction of 100 Inspired Oxygen (FIO2) Procedures - Arterial Line No standard instances Consent Obtained: emergent situation Size (Gauge): 14 Technique Used: guide wire technique Post-Procedure: line sutured into place Patient Tolerated Procedure: well Complications: none - Central Line Placement Right Femoral Consent Obtained: emergent situation Patient Placed on Monitor/Pulse Ox: Yes Prep: mask, gown, gloves Central Line Prep: Chlorhexidine scrub Ultrasound Used for Placement: Yes Central Line Lumen Inserted: triple Bloods Obtained for Lab: No Central Line Position: good blood return, all ports aspirated, flushed, capped, sutured in place with 3-0 nylon Dressing Applied: Tegaderm, sterile gauze/tape Patient Tolerated Procedure: well Complications: hematoma at puncture site Additional Comments: Initial attempt was made anymore superior location moving laterally in order to avoid the artery. There was difficulty railroading the dilator over the wire. There was a small hematoma formation. Wire was removed and puncture was attempted at a more medial location and more superiorly with success. Medical Decision Making - Lab Data Result diagrams: 08/12/21 17:04 08/12/21 17:04 Lab Results 08/12/21 08/12/21 08/12/21 Range/Units 16:40 16:55 16:57 WBC (3.8-10.6) k/uL RBC (3.80-5.40) m/uL Hgb (11.4-16.0) gm/dL Hct (34.0-46.0) % MCV (80.0-100.0) fL MCH (25.0-35.0) pg MCHC (31.0-37.0) g/dL RDW (11.5-15.5) % Plt Count (150-450) k/uL MPV Neutrophils % % Lymphocytes % % Monocytes % % Eosinophils % % Basophils % % Neutrophils # (1.3-7.7) k/uL Lymphocytes # (1.0-4.8) k/uL Monocytes # (0-1.0) k/uL Eosinophils # (0-0.7) k/uL Basophils # (0-0.2) k/uL Hypochromasia PT (9.0-12.0) sec INR (<1.2) APTT (22.0-30.0) sec D-Dimer (<0.60) mg/L FEU Sample Site ABG pH (7.35-7.45) ABG pCO2 (35-45) mmHg ABG pO2 (83-108) mmHg ABG HCO3 (21-25) mmol/L ABG Total CO2 (19-24) mmol/L ABG O2 Saturation (94-97) % ABG Base Excess mmol/L Evert Test FiO2 % Sodium (137-145) mmol/L Potassium (3.5-5.1) mmol/L Chloride (98-107) mmol/L Carbon Dioxide (22-30) mmol/L Anion Gap mmol/L BUN (7-17) mg/dL Creatinine (0.52-1.04) mg/dL Est GFR (CKD-EPI)AfAm (>60 ml/min/1.73 sqM) Est GFR (CKD-EPI)NonAf (>60 ml/min/1.73 sqM) Glucose (74-99) mg/dL POC Glucose (mg/dL) 246 H (70-110) mg/dL POC Glu Curber ID Doug Morfin Plasma Lactic Acid Raji (0.7-2.0) mmol/L Calcium (8.4-10.2) mg/dL Total Bilirubin (0.2-1.3) mg/dL AST (14-36) U/L ALT (4-34) U/L Alkaline Phosphatase (38-126) U/L Troponin I (0.000-0.034) ng/mL Total Protein (6.3-8.2) g/dL Albumin (3.5-5.0) g/dL Blood Type A Positive Blood Type Confirm A Positive Blood Type Recheck No Previous Record Bld Type Recheck Status CABO Indicated Antibody Screen NEGATIVE Spec Expiration Date 08/15/2021 - 235408/12/21 08/12/21 08/12/21 Range/Units 17:04 17:04 17:04 WBC 11.0 H (3.8-10.6) k/uL RBC 4.13 (3.80-5.40) m/uL Hgb 12.1 (11.4-16.0) gm/dL Hct 38.2 (34.0-46.0) % MCV 92.5 (80.0-100.0) fL MCH 29.4 (25.0-35.0) pg MCHC 31.8 (31.0-37.0) g/dL RDW 15.2 (11.5-15.5) % Plt Count 136 L (150-450) k/uL MPV 11.4 Neutrophils % 56 % Lymphocytes % 36 % Monocytes % 5 % Eosinophils % 1 % Basophils % 1 % Neutrophils # 6.1 (1.3-7.7) k/uL Lymphocytes # 3.9 (1.0-4.8) k/uL Monocytes # 0.5 (0-1.0) k/uL Eosinophils # 0.1 (0-0.7) k/uL Basophils # 0.1 (0-0.2) k/uL Hypochromasia Marked PT 12.1 H (9.0-12.0) sec INR 1.1 (<1.2) APTT 19.8 L (22.0-30.0) sec D-Dimer 1.17 H (<0.60) mg/L FEU Sample Site ABG pH (7.35-7.45) ABG pCO2 (35-45) mmHg ABG pO2 (83-108) mmHg ABG HCO3 (21-25) mmol/L ABG Total CO2 (19-24) mmol/L ABG O2 Saturation (94-97) % ABG Base Excess mmol/L Evert Test FiO2 % Sodium 137 (137-145) mmol/L Potassium 4.1 (3.5-5.1) mmol/L Chloride 100 (98-107) mmol/L Carbon Dioxide 24 (22-30) mmol/L Anion Gap 13 mmol/L BUN 16 (7-17) mg/dL Creatinine 1.02 (0.52-1.04) mg/dL Est GFR (CKD-EPI)AfAm 77 (>60 ml/min/1.73 sqM) Est GFR (CKD-EPI)NonAf 67 (>60 ml/min/1.73 sqM) Glucose 243 H (74-99) mg/dL POC Glucose (mg/dL) (70-110) mg/dL POC Glu Curber ID Plasma Lactic Acid Raji (0.7-2.0) mmol/L Calcium 10.3 H (8.4-10.2) mg/dL Total Bilirubin 1.1 (0.2-1.3) mg/dL AST 37 H (14-36) U/L ALT 19 (4-34) U/L Alkaline Phosphatase 73 (38-126) U/L Troponin I (0.000-0.034) ng/mL Total Protein 6.7 (6.3-8.2) g/dL Albumin 3.7 (3.5-5.0) g/dL Blood Type Blood Type Confirm Blood Type Recheck Bld Type Recheck Status Antibody Screen Spec Expiration Date 08/12/21 08/12/21 08/12/21 Range/Units 17:04 17:04 17:46 WBC (3.8-10.6) k/uL RBC (3.80-5.40) m/uL Hgb (11.4-16.0) gm/dL Hct (34.0-46.0) % MCV (80.0-100.0) fL MCH (25.0-35.0) pg MCHC (31.0-37.0) g/dL RDW (11.5-15.5) % Plt Count (150-450) k/uL MPV Neutrophils % % Lymphocytes % % Monocytes % % Eosinophils % % Basophils % % Neutrophils # (1.3-7.7) k/uL Lymphocytes # (1.0-4.8) k/uL Monocytes # (0-1.0) k/uL Eosinophils # (0-0.7) k/uL Basophils # (0-0.2) k/uL Hypochromasia PT (9.0-12.0) sec INR (<1.2) APTT (22.0-30.0) sec D-Dimer (<0.60) mg/L FEU Sample Site [place] ABG pH 7.16 L* (7.35-7.45) ABG pCO2 43 (35-45) mmHg ABG pO2 376 H (83-108) mmHg ABG HCO3 15 L (21-25) mmol/L ABG Total CO2 17 L (19-24) mmol/L ABG O2 Saturation 100.0 H (94-97) % ABG Base Excess -13.5 mmol/L Evert Test Yes FiO2 100 % Sodium (137-145) mmol/L Potassium (3.5-5.1) mmol/L Chloride (98-107) mmol/L Carbon Dioxide (22-30) mmol/L Anion Gap mmol/L BUN (7-17) mg/dL Creatinine (0.52-1.04) mg/dL Est GFR (CKD-EPI)AfAm (>60 ml/min/1.73 sqM) Est GFR (CKD-EPI)NonAf (>60 ml/min/1.73 sqM) Glucose (74-99) mg/dL POC Glucose (mg/dL) (70-110) mg/dL POC Glu Curber ID Plasma Lactic Acid Raji 8.1 H* (0.7-2.0) mmol/L Calcium (8.4-10.2) mg/dL Total Bilirubin (0.2-1.3) mg/dL AST (14-36) U/L ALT (4-34) U/L Alkaline Phosphatase (38-126) U/L Troponin I 0.030 (0.000-0.034) ng/mL Total Protein (6.3-8.2) g/dL Albumin (3.5-5.0) g/dL Blood Type Blood Type Confirm Blood Type Recheck Bld Type Recheck Status Antibody Screen Spec Expiration Date Critical Care Time Critical Care Time: Yes Total Critical Care Time: 76 Disposition Clinical Impression: Cardiac arrest Disposition: ADMITTED IP TO THIS [facility] Condition: Critical Referrals: Costa Falcon [Primary Care Provider] - 1-2 days Decision Time: 18:24
[2021-08-12 17:48] LABS: ABG Base Excess -13.5 mmol/L; ABG HCO3 15 mmol/L (21-25); ABG PCO2 43 mmHg (35-45); ABG PO2 376 mmHg (83-108); ABG TCO2 17 mmol/L (19-24); Allen Test Performed? Yes
--- NOTE | 2021-08-12 17:51 | XR ---
EXAMINATION TYPE: XR chest 1V portable DATE OF EXAM: 08/12/2021 COMPARISON: 07/30/2021 HISTORY: Chest pain TECHNIQUE: FINDINGS: There is some airspace infiltrate right lower lobe. There is pulmonary interstitial and air space edema. Heart is enlarged. There is a left axillary pacemaker. Endotracheal tube appears to be 1 cm into the right mainstem bronchus. IMPRESSION: There is evidence for congestive heart failure and right lower lobe pneumonia which is sl ightly worse than recent exam. The endotracheal tube appears malpositioned into the right mainstem br onchus.
[2021-08-12] MEDS ORDERED: PROPRANOLOL 1 MG/ML 1 ML VIAL IV STA (17:54)
[2021-08-12 18:11] LABS: ABG PH 7.16 (7.35-7.45)
[2021-08-12] MEDS ORDERED: NALOXONE 0.4 MG/ML 1 ML VIAL IV PRN (18:17)
--- NOTE | 2021-08-12 18:57 | XR ---
EXAMINATION TYPE: XR chest 1V portable DATE OF EXAM: 08/12/2021 COMPARISON: Today HISTORY: Tube placement TECHNIQUE: FINDINGS: There is endotracheal tube which is almost 2 cm into the right mainstem bronchus. There is bilateral pulmonary patchy edema. There is right central venous catheter with the tip in the top of t he right atrium. I see no definite gastric tube. I see no evidence of tubing in the esophagus. IMPRESSION: The endotracheal tube is malpositioned in the right mainstem bronchus. Pulmonary edema without change. No evidence of nasogastric tube.
[2021-08-12] MEDS: PANTOPRAZOLE 40 MG/10 ML VIAL IV SCH (19:17)
[2021-08-12] MEDS: SODIUM CHLORIDE 0.9% 1,000 ML IV SCH ×2 (19:18→23:49)
[2021-08-12 21:59] LABS: Glucose,Whole Blood 425 mg/dL (70-110)
[2021-08-12] MEDS: EPINEPHrine 4 MG in DEXTROSE 5% IN WATER 250 ML IV SCH ×2 (22:30)
[2021-08-12 22:45] LABS: ABG Base Excess -16.3 mmol/L; ABG HCO3 14 mmol/L (21-25); ABG Oxygen Saturation 93.6 % (94-97); ABG PCO2 54 mmHg (35-45); ABG PO2 95 mmHg (83-108); ABG TCO2 16 mmol/L (19-24)
[2021-08-12 22:47] LABS: ABG PH 7.03 (7.35-7.45); Allen Test Performed? No
[2021-08-12] MEDS ORDERED: SODIUM BICARB 8.4% 50 ML SYR (1 MEQ/ML) IV STA (22:59)
--- NOTE | 2021-08-12 23:01 | XR ---
EXAMINATION TYPE: XR chest 1V DATE OF EXAM: 08/12/2021 COMPARISON: NONE HISTORY: Tube placement TECHNIQUE: Single view FINDINGS: Endotracheal tube is 4.5 cm from the jatinder. There is nasogastric tube probably has tip in the stomach. There is right subclavian catheter with tip in the superior vena cava. There is left axi llary pacemaker. There is some mild interstitial infiltrates in the lower lobes and more on the right side. There is some atelectasis right lower lobe. No heart failure. No pleural effusion. IMPRESSION: There is good position of the endotracheal tube. There is some mild pulmonary infiltrates not significantly different than exam 4 hours ago.
[2021-08-13 00:04] LABS: ABG Base Excess -13.4 mmol/L; ABG HCO3 15 mmol/L (21-25); ABG Oxygen Saturation 97.6 % (94-97); ABG PCO2 38 mmHg (35-45); ABG PO2 106 mmHg (83-108); ABG TCO2 16 mmol/L (19-24); Allen Test Performed? Yes
[2021-08-13 00:41] LABS: Glucose,Whole Blood 264 mg/dL (70-110)
[2021-08-13 00:58] LABS: ABG PH 7.19 (7.35-7.45)
[2021-08-13] MEDS: INSULIN ASPART (NovoLOG) 100 UNIT/ML VIAL SQ SCH ×4 (00:59→18:31)
--- NOTE | 2021-08-13 01:54 | P.HPIM ---
History of Present Illness H&P Date: 08/12/21 The patient is a 45-year-old female with a PMH of cardiac sarcoidosis with nonischemic cardiomyopathy status post AICD, recent pacemaker placement, A. fib, type II DM, hypertension, and hyperlipidemia who was brought into the emergency room after she suffered a cardiac arrest at home. The patient was reportedly attempting sexual intercourse when she suddenly lost consciousness. History obtained from the chart and ED provider as patient was intubated. The patient was reportedly down for 5 minutes prior to EMS arrival, and they found her in asystole and subsequently V. fib for which she underwent defibrillation. They did achieve return of spontaneous circulation however after arrival to the emergency room, the patient became pulseless and required several minutes of CPR as well as IV push epinephrine 1 and sodium bicarbonate. Of note, the patient has had multiple recent hospitalizations for multiple etiologies including MRSA bacteremia with AICD lead vegetation, subsequent 8 week course of antibiotics as well as CHF exacerbation. The case was discussed with cardiology by the ED physician who noted that the patient does not candidate for emergent cardiac catheterization due to prolonged downtime and nonischemic cardiomyopathy history. EKG in the emergency room revealed V paced rhythm at 58 bpm. Chest x- ray revealed pulmonary edema. Laboratory evaluation was remarkable for a lactic acid of 8.1, WBC count 11.0, d-dimer 1.17. Review of systems: Pertinent positives and negatives as discussed in HPI, a complete review of systems was performed and all other systems are negative. Physical examination: General: Intubated female, no distress, appears at stated age, morbidly obese Derm: no unusual rashes/lesions, warm Head: atraumatic, normocephalic, symmetric Eyes: Anicteric sclera, pupils equal round reactive to light ENT: Nose and ears atraumatic Neck: No cervical lymphadenopathy, trachea midline, supple Mouth: no lip lesion Cardiovascular: S1S2 reg, no murmur, positive dorsalis pedis pulse bilateral, no edema Lungs: Scattered rhonchi, no wheezing appreciated intubated Abdominal: soft, nontender to palpation, no guarding Ext: No gross muscle atrophy, no contractures, Neuro: Unable to assess Assessment/plan Cardiac arrest with history of cardiac sarcoidosis and systolic CHF status post AICD placement -Continue with ventilator bundle -Cardiology and copper plate lithographer consulted -Cardiac monitoring -Patient initiated on epinephrine infusion by ED physician due to multiple episodes of cardiac arrest, and being responsive to IV push epinephrine Lactic acidosis -IV fluids and monitor for resolution Chronic conditions: A. fib, hypertension, hyperlipidemia, type II DM -Patient currently intubated and unable to take oral medications -Insulin sliding scale blood glucose monitoring DVT prophylaxis -Heparin subcu The patient is admitted with an anticipated greater than 2 midnight stay for evaluation of cardiac arrest CODE STATUS: Full Code Anticipated discharge date: Unknown Anticipated discharge place: Home Past Medical History Past Medical History: Atrial Fibrillation, Heart Failure, Diabetes Mellitus, GI Bleed, Hyperlipidemia, Hypertension, Myocardial Infarction ([place]), Musculoskeletal Disorder, Pneumonia, Skin Disorder, Sleep Apnea/CPAP/BIPAP, Thyroid Disorder Additional Past Medical History / Comment(s): "Have had 6 months of walking Pneumonia". Hx steroid induced gluacoma(resolved). Neurosarcoidosis, sarcoidosis which caused heart problems. Eczema. Hx [place] Palsy with right facial droop. Hx concussion at age 12, has some learning disablity-problems with spelling. MS. Graves Disease, " 7 auto immune diseases". DDD. CPAP use. "Weakness all over". Diarrhea and occasional blood in stool. "27 lesions on her brain". "INTERMITTENT GI BLEED" AND PROBLEMS SWALLOWING. pacemaker placement 07/21/2021 Last Myocardial Infarction Date:: 11/15/20 History of Any Multi-Drug Resistant Organisms: MRSA Date of last positivie culture/infection: 07/19/21 MDRO Source:: MRSA BLOOD Past Surgical History: AICD, Cholecystectomy, Heart Catheterization Additional Past Surgical History / Comment(s): VENOGRAM W/CINEFLUROSCOPY. Past Anesthesia/Blood Transfusion Reactions: No Reported Reaction Additional Past Anesthesia/Blood Transfusion Reaction / Comment(s): Claustrophobia. Type of Cardiac Device: Permanent Pacemaker, AICD Device Placement Date:: 03/01 Past Psychological History: ADD/ADHD, Anxiety, Depression Additional Psychological History / Comment(s): Hx panic attacks. Claustrophobia. Smoking Status: Never smoker Past Alcohol Use History: None Reported Past Drug Use History: None Reported - Past Family History Mother Family Medical History: AFIB, Deep Vein Thrombosis (DVT) Father Family Medical History: Osteoarthritis (OA), Thyroid Disorder Medications and Allergies Home Medications Medication Instructions Recorded Confirmed Type metFORMIN HCL [Glucophage] 1,000 mg PO BID-W/MEALS 11/10/17 08/12/21 History Ezetimibe [Zetia] 10 mg PO DAILY 10/06/18 08/12/21 History Apixaban [Eliquis] 5 mg PO BID #180 tab 02/15/19 08/12/21 Rx PARoxetine HCL 30 mg PO DAILY 06/23/19 08/12/21 History Artificial Tears-Hypromellose 1 drop BOTH EYES TID PRN 11/13/20 08/12/21 History [Artificial Tear Drops] Albuterol Inhaler [Ventolin Hfa 2 puff INHALATION RT-Q4H PRN 06/26/21 08/12/21 History Inhaler] Acetaminophen [Tylenol] 1,000 mg PO Q4-6H PRN 07/01/21 08/12/21 History Latanoprost/Pf [Latanoprost 0.005% 1 drop RIGHT EYE HS 07/01/21 08/12/21 History Eye Drop] Levothyroxine Sodium [Synthroid] 175 mcg PO DAILY 07/01/21 08/12/21 History glipiZIDE [Glucotrol] 5 mg PO AC-BRKFST #30 tab 07/05/21 08/12/21 Rx guaiFENesin-Coden 100-10MG/5ML 10 ml PO TID PRN #1000 ml 07/05/21 08/12/21 Rx [Robitussin AC] HYDROcodone/APAP 5-325MG [[facility] tab PO Q6HR PRN 3 Days #12 tab 07/11/21 08/12/21 Rx 5-325] Fenofibrate [Lofibra] 160 mg PO DAILY 07/14/21 08/12/21 History Pantoprazole [Protonix] 40 mg PO AC-BID #60 tab 07/25/21 08/12/21 Rx Vancomycin 2,000 mg IVPB Q12HR each 07/25/21 08/12/21 Rx predniSONE 10 mg PO DAILY 07/30/21 08/12/21 History Furosemide [Lasix] 40 mg PO BID@0900,1600 #180 tab 08/01/21 08/12/21 Rx Metoprolol Succinate (ER) [Toprol 25 mg PO DAILY #90 tab 08/01/21 08/12/21 Rx XL] Allergies Allergy/AdvReac Type Severity Reaction Status Date / Time Wbkypao-SBP-QvV Reductase AdvReac FACIAL Verified 08/12/21 19:16 Inhibitor NUMBNESS [Jtoovyp-Hze-Mqy Reductase Inhibitor] SEAFOOD Allergy Rash/Hives Uncoded 07/30/21 17:18 Physical Exam Vitals: Vital Signs Temp Pulse Resp BP Pulse Ox FiO2 08/12/21 23:23 50 08/12/21 21:15 65 18 143/91 99 08/12/21 20:27 62 18 98/70 98 08/12/21 20:00 65 16 102/78 99 08/12/21 19:48 50 08/12/21 19:23 98.0 F 64 16 104/69 97 08/12/21 19:05 80 18 116/78 98 08/12/21 18:39 68 16 141/76 98 08/12/21 17:53 82 16 141/82 100 08/12/21 17:32 100 08/12/21 17:22 69 16 131/99 08/12/21 17:21 100 08/12/21 17:14 80 18 125/106 08/12/21 17:00 75 18 125/108 100 Intake and Output 08/12/21 08/12/21 08/13/21 14:59 22:59 06:59 Intake Total 125.171 Balance 125.171 Intake: Intake, IV Titration 125.171 Amount EPINEPHrine 4 mg In 52.826 Dextrose 5% in Water 250 ml @ 0.01 MCG/KG/MIN 4. 914 mls/hr IV .Q24H [facility] Rx#:[id number] propofoL 1,000 mg In 72.345 Empty Bag 1 bag @ 5 MCG/ KG/MIN 3.9 mls/hr IV . Q24H [facility] Rx#:[id number] Other: Weight 120 kg Results CBC & Chem 7: 08/12/21 17:04 08/12/21 17:04 Labs: Abnormal Lab Results - Last 24 Hours (Table) 08/12/21 08/12/21 08/12/21 Range/Units 16:57 17:04 17:04 WBC 11.0 H (3.8-10.6) k/uL Plt Count 136 L (150-450) k/uL PT 12.1 H (9.0-12.0) sec APTT 19.8 L (22.0-30.0) sec D-Dimer 1.17 H (<0.60) mg/L FEU ABG pH (7.35-7.45) ABG pCO2 (35-45) mmHg ABG pO2 (83-108) mmHg ABG HCO3 (21-25) mmol/L ABG Total CO2 (19-24) mmol/L ABG O2 Saturation (94-97) % Glucose (74-99) mg/dL POC Glucose (mg/dL) 246 H (70-110) mg/dL Plasma Lactic Acid Raji (0.7-2.0) mmol/L Calcium (8.4-10.2) mg/dL AST (14-36) U/L 08/12/21 08/12/21 08/12/21 Range/Units 17:04 17:04 17:46 WBC (3.8-10.6) k/uL Plt Count (150-450) k/uL PT (9.0-12.0) sec APTT (22.0-30.0) sec D-Dimer (<0.60) mg/L FEU ABG pH 7.16 L* (7.35-7.45) ABG pCO2 (35-45) mmHg ABG pO2 376 H (83-108) mmHg ABG HCO3 15 L (21-25) mmol/L ABG Total CO2 17 L (19-24) mmol/L ABG O2 Saturation 100.0 H (94-97) % Glucose 243 H (74-99) mg/dL POC Glucose (mg/dL) (70-110) mg/dL Plasma Lactic Acid Raji 8.1 H* (0.7-2.0) mmol/L Calcium 10.3 H (8.4-10.2) mg/dL AST 37 H (14-36) U/L 08/12/21 08/12/21 Range/Units 21:58 22:39 WBC (3.8-10.6) k/uL Plt Count (150-450) k/uL PT (9.0-12.0) sec APTT (22.0-30.0) sec D-Dimer (<0.60) mg/L FEU ABG pH 7.03 L* (7.35-7.45) ABG pCO2 54 H (35-45) mmHg ABG pO2 (83-108) mmHg ABG HCO3 14 L (21-25) mmol/L ABG Total CO2 16 L (19-24) mmol/L ABG O2 Saturation 93.6 L (94-97) % Glucose (74-99) mg/dL POC Glucose (mg/dL) 425 H (70-110) mg/dL Plasma Lactic Acid Raji (0.7-2.0) mmol/L Calcium (8.4-10.2) mg/dL AST (14-36) U/L
[2021-08-13] MEDS: EPINEPHrine 4 MG in DEXTROSE 5% IN WATER 250 ML IV SCH ×6 (02:18→09:41)
[2021-08-13] MEDS ORDERED: SODIUM BICARB 8.4% 50 ML SYR (1 MEQ/ML) IV STA ×4 (04:05→10:55)
[2021-08-13] MEDS ORDERED: VANCOMYCIN IV PER PHARMACY 1 EACH MISC MISCELLANE PRN (04:05)
[2021-08-13] MEDS: ACETAMINOPHEN IV (For NPO) 1,000 MG in EMPTY BAG 1 BAG IVPB SCH ×4 (04:16→23:38)
[2021-08-13] MEDS: SODIUM CHLORIDE 0.9% 1,000 ML IV SCH (04:32)
[2021-08-13] MEDS: DEXTROSE 5% IN WATER 1,000 ML with SODIUM BICARB (1 MEQ/ML) 150 ML IV SCH ×3 (04:41→21:54)
[2021-08-13 05:09] LABS: Calcium 7.8 mg/dL (8.4-10.2); Magnesium 1.9 mg/dL (1.6-2.3)
[2021-08-13 05:22] LABS: Phosphorus 10.1 mg/dL (2.5-4.5)
[2021-08-13 05:54] LABS: Glucose,Whole Blood 312 mg/dL (70-110)
[2021-08-13 05:58] LABS: ABG Base Excess -19.2 mmol/L; ABG Oxygen Saturation 97.4 % (94-97); ABG PCO2 32 mmHg (35-45); ABG PO2 118 mmHg (83-108); ABG TCO2 11 mmol/L (19-24)
[2021-08-13] MEDS ORDERED: VANCOMYCIN 2,500 MG in SODIUM CHLORIDE 0.9% 500 ML 500 ML IVPB SCH (06:00)
[2021-08-13 06:01] LABS: ABG HCO3 10 mmol/L (21-25); ABG PH 7.11 (7.35-7.45); Allen Test Performed? No
[2021-08-13 06:25] LABS: HCT 42.1 % (34.0-46.0); Hypochromasia Marked; MCH 29.4 pg (25.0-35.0); MCV 94.8 fL (80.0-100.0); Mean Platelet Volume 10.3; Platelet Count 154 k/uL (150-450); RBC 4.44 m/uL (3.80-5.40); RDW 15.4 % (11.5-15.5)
[2021-08-13 07:10] LABS: Band Neutrophils % 3 %; Lymphocytes # (M) 0.83 k/uL (1.0-4.8); Metamyelocytes # (M) 0.28 k/uL (0); Metamyelocytes % 1 %; Monocytes # (M) 1.39 k/uL (0-1.0); Neutrophils % (M) 90 %; Nucleated Red Blood Cells 1 /100 WBC (0-0); Total Cells Counted 200; WBC 27.8 k/uL (3.8-10.6)
[2021-08-13 07:12] LABS: Polychromasia Present
[2021-08-13] MEDS: CHLORHEXIDINE GLUCONATE 15 ML CUP MUCOUS MEM SCH ×2 (08:05→20:11)
[2021-08-13] MEDS: PANTOPRAZOLE 40 MG/10 ML VIAL IV SCH (08:05)
[2021-08-13] MEDS: HYDROCORTISONE SUCCINATE 100 MG/2 ML VIAL IV SCH ×3 (08:05→23:37)
[2021-08-13] MEDS: PIPERACILLIN-TAZOBACTAM 3.375 GM in SODIUM CHLORIDE 0.9% 100 ML IVPB SCH ×3 (08:05→23:39)
--- NOTE | 2021-08-13 08:39 | P.CRDCN ---
History of Present Illness History of present illness: This is a 45 year old female with a past medical history significant for non- ischemic cardiomyopathy with AICD implantation, paroxysmal atrial fibrillation on anticoagulation with Eliquis, diabetes, hypertension, hyperlipidemia, multiple sclerosis, and cardiac sarcoidosis, recent admission to the hospital 07/14-07/26/2021 for MRSA bacteremia with lead vegetation. Patient follows in the office with Dr. Hinojosa. Patient was recently hospitalized from 07/14- 07/26/2021 for sepsis, she was found to have MRSA bacteremia, [place] revealed atrial lead vegetation. On 07/21/2021 Patient underwent extraction of the right atrial lead, LV lead and RV ICD lead. She then had implantation of a new RV pacing lead in the RV apex, and Implantation of single-chamber pacemaker generator in the pocket. She was discharged home with a PICC line for 6 week course of antibiotics. Family intubated and sedated and history of supply the chart. Per patient's apparently they were getting ready to have sexual intercourse and has been found patient to be unresponsive. EMS was called and patient was having shallow respirations with low oxygen saturation and weak pulses. Patient decompensated to cardiac arrest and CPR was performed and apparently found to be in V. fib and cardioverted. She remained apneic and unresponsive and difficulty removing patient from the house secondary to hoarding. On removing patient from house she was noted to have an additional cardiac arrest which may have resulted from inability to bag patient and apparently improved with airway placement. EKG shows intermittent ventricular pacing, sinus rhythm with what appears to be intermittent idioventricular rhythm. Creatinine initially 1.0 however elevated at 2.59 us morning, severe lactic acidosis up to 19 this morning, metabolic acidosis by ABG, blood cell count 27.8, and having intermittent fevers up to 102.8. Patient intubated with 50% FiO2 and 5 of PEEP and is on Epinephrine drip. DIAGNOSTICS * Most recent echocardiogram TEODORO- 07/19/2021 #1. Mobile lesion noted on the probably atrial lead, suggestive of vegetation #2. 3+ mitral regurgitation #3. Severe global left ventricular dysfunction. #4. Left atrial enlargement. #5. No clot in the left atrial appendage. #6. No evidence of PFO * 2D Echocardiogram 06/2021 revealed EF of 3540%, dilated LV, inferiorbasal akinesis * Patient underwent cardiac catheterization in November 2020 revealing normal coronary arteries * REVIEW OF SYSTEMS: At the time of my exam: Unable to obtain PHYSICAL EXAM: VITAL SIGNS: Reviewed. GENERAL: Well-developed, obese, intubated and sedated. HEENT: Head is normocephalic. Pupils are equal, round. Sclerae anicteric. Mucous membranes of the mouth are moist. Neck supple. No JVD LUNGS: Respirations even and unlabored. Lungs diminished in the bases. HEART: Regular rate and rhythm. S1 and S2 heard. Systolic murmur at apex ABDOMEN: Soft. Nondistended. Nontender. EXTREMITIES: Normal range of motion. No clubbing or cyanosis. Peripheral pulses intact. No lower extremity edema NEUROLOGIC: Intubated and sedated ASSESSMENT: Cardiac arrest with V. fib arrest status post defibrillation in the field Prolonged downtime and severe lactic acidosis Shock, questionable component of septic shock with fevers and increased white blood cell count Chronic heart failure with reduced ejection fraction Recent admission for MRSA bacteremia, AICD vegetation Status post extraction of the right atrial lead, extraction of the LV lead, extraction of the RV ICD lead, and implantation of a new RV pacing lead in the RV apex, using the right atrial lead as an access and implantation of single- chamber pacemaker generator in the pocket on 07/21/2021 Nonischemic cardiomyopathy with previous AICD Paroxysmal atrial fibrillation on anticoagulation with Eliquis Cardiac sarcoidosis Hypertension Hyperlipidemia Diabetes mellitus, type 2 PLAN: Patient with cardiac arrest of unclear etiology and V. fib arrest. Patient does have known cardiomyopathy and previous AICD however removed secondary to most recent MRSA bacteremia and lead infection. Interrogate single chamber RV pacemaker to assess V. fib episode. Continue supportive care. Suspect hypotension related to sepsis however obtain echo to rule out any structural disease. Further recommendations to follow. Prognosis guarded. Monitor neurologic function. Past Medical History Past Medical History: Atrial Fibrillation, Heart Failure, Diabetes Mellitus, GI Bleed, Hyperlipidemia, Hypertension, Myocardial Infarction ([place]), Musculoskeletal Disorder, Pneumonia, Skin Disorder, Sleep Apnea/CPAP/BIPAP, Thyroid Disorder Additional Past Medical History / Comment(s): "Have had 6 months of walking Pneumonia". Hx steroid induced gluacoma(resolved). Neurosarcoidosis, sarcoidosis which caused heart problems. Eczema. Hx [place] Palsy with right facial droop. Hx concussion at age 12, has some learning disablity-problems with spelling. MS. Graves Disease, " 7 auto immune diseases". DDD. CPAP use. "Weakness all over". Diarrhea and occasional blood in stool. "27 lesions on her brain". "INTERMITTENT GI BLEED" AND PROBLEMS SWALLOWING. pacemaker placement 07/21/2021 Last Myocardial Infarction Date:: 11/15/20 History of Any Multi-Drug Resistant Organisms: MRSA Date of last positivie culture/infection: 07/19/21 MDRO Source:: MRSA BLOOD Past Surgical History: AICD, Cholecystectomy, Heart Catheterization Additional Past Surgical History / Comment(s): VENOGRAM W/CINEFLUROSCOPY. Past Anesthesia/Blood Transfusion Reactions: No Reported Reaction Additional Past Anesthesia/Blood Transfusion Reaction / Comment(s): Claustrophobia. Type of Cardiac Device: Permanent Pacemaker, AICD Device Placement Date:: 03/01 Past Psychological History: ADD/ADHD, Anxiety, Depression Additional Psychological History / Comment(s): Hx panic attacks. Claustrophobia. Smoking Status: Never smoker Past Alcohol Use History: None Reported Past Drug Use History: None Reported - Past Family History Mother Family Medical History: AFIB, Deep Vein Thrombosis (DVT) Father Family Medical History: Osteoarthritis (OA), Thyroid Disorder Medications and Allergies Home Medications Medication Instructions Recorded Confirmed Type metFORMIN HCL [Glucophage] 1,000 mg PO BID-W/MEALS 11/10/17 08/12/21 History Ezetimibe [Zetia] 10 mg PO DAILY 10/06/18 08/12/21 History Apixaban [Eliquis] 5 mg PO BID #180 tab 02/15/19 08/12/21 Rx PARoxetine HCL 30 mg PO DAILY 06/23/19 08/12/21 History Artificial Tears-Hypromellose 1 drop BOTH EYES TID PRN 11/13/20 08/12/21 History [Artificial Tear Drops] Albuterol Inhaler [Ventolin Hfa 2 puff INHALATION RT-Q4H PRN 06/26/21 08/12/21 History Inhaler] Acetaminophen [Tylenol] 1,000 mg PO Q4-6H PRN 07/01/21 08/12/21 History Latanoprost/Pf [Latanoprost 0.005% 1 drop RIGHT EYE HS 07/01/21 08/12/21 History Eye Drop] Levothyroxine Sodium [Synthroid] 175 mcg PO DAILY 07/01/21 08/12/21 History glipiZIDE [Glucotrol] 5 mg PO AC-BRKFST #30 tab 07/05/21 08/12/21 Rx guaiFENesin-Coden 100-10MG/5ML 10 ml PO TID PRN #1000 ml 07/05/21 08/12/21 Rx [Robitussin AC] HYDROcodone/APAP 5-325MG [[facility] 1 tab PO Q6HR PRN 3 Days #12 tab 07/11/21 08/12/21 Rx 5-325] Fenofibrate [Lofibra] 160 mg PO DAILY 07/14/21 08/12/21 History Pantoprazole [Protonix] 40 mg PO AC-BID #60 tab 07/25/21 08/12/21 Rx Vancomycin 2,000 mg IVPB Q12HR each 07/25/21 08/12/21 Rx predniSONE 10 mg PO DAILY 07/30/21 08/12/21 History Furosemide [Lasix] 40 mg PO BID@0900,1600 #180 tab 08/01/21 08/12/21 Rx Metoprolol Succinate (ER) [Toprol 25 mg PO DAILY #90 tab 08/01/21 08/12/21 Rx XL] Allergies Allergy/AdvReac Type Severity Reaction Status Date / Time Pwjlnyf-WEB-SxN Reductase AdvReac FACIAL Verified 08/12/21 19:16 Inhibitor NUMBNESS [Luydpwv-Eoi-Mdk Reductase Inhibitor] SEAFOOD Allergy Rash/Hives Uncoded 07/30/21 17:18 Physical Exam Vitals: Vital Signs Temp Pulse Resp BP Pulse Ox FiO2 08/13/21 07:45 50 08/13/21 07:30 53 L 29 H 98 50 08/13/21 07:15 53 L 29 H 96 08/13/21 07:00 53 L 29 H 98 50 08/13/21 06:45 52 L 29 H 99 08/13/21 06:30 52 L 29 H 91 L 50 08/13/21 06:15 52 L 29 H 97 08/13/21 06:00 52 L 29 H 98 50 08/13/21 05:45 52 L 29 H 99 08/13/21 05:30 51 L 29 H 98 50 08/13/21 05:15 53 L 29 H 99 08/13/21 05:00 100.7 F H 53 L 30 H 99 50 08/13/21 04:45 51 L 30 H 98 08/13/21 04:30 55 L 28 H 100 50 08/13/21 04:15 50 L 28 H 100 08/13/21 04:00 102.8 F H 49 L 28 H 100 50 08/13/21 03:45 54 L 28 H 99 08/13/21 03:30 50 L 8 L 100 50 08/13/21 03:26 50 08/13/21 03:15 49 L 28 H 100 08/13/21 03:00 52 L 28 H 99 50 08/13/21 02:45 53 L 28 H 99 50 08/13/21 02:30 49 L 28 H 98 50 08/13/21 02:15 56 L 28 H 96/61 98 08/13/21 02:00 51 L 28 H 97 50 08/13/21 01:45 51 L 29 H 98 08/13/21 01:30 58 L 30 H 96 50 08/13/21 01:15 57 L 30 H 97 08/13/21 01:00 55 L 28 H 97 50 08/13/21 00:45 54 L 28 H 96 08/13/21 00:30 55 L 29 H 81/54 97 50 08/13/21 00:15 52 L 28 H 97 08/13/21 00:00 98.2 F 54 L 29 H 97/58 97 50 08/12/21 23:53 65 28 H 96 08/12/21 23:45 52 L 28 H 97 50 08/12/21 23:30 57 L 28 H 96 50 08/12/21 23:27 56 L 28 H 92 L 50 08/12/21 23:23 50 08/12/21 22:45 50 08/12/21 21:15 65 18 143/91 99 08/12/21 20:27 62 18 98/70 98 08/12/21 20:00 65 16 102/78 99 08/12/21 19:48 50 08/12/21 19:23 98.0 F 64 16 104/69 97 08/12/21 19:05 80 18 116/78 98 08/12/21 18:39 68 16 141/76 98 08/12/21 17:53 82 16 141/82 100 08/12/21 17:32 100 07/04/22 17:22 69 16 131/99 07/04/22 17:21 100 08/12/21 17:14 80 18 125/106 08/12/21 17:00 75 18 125/108 100 Intake and Output 08/12/21 08/13/21 08/13/21 22:59 06:59 14:59 Intake Total 968.540 3610.735 520 Output Total 0 Balance 697.404 3126.735 520 Intake: IV 1080 420 Dextrose 5% in Water 1, 200 200 000 ml @ 100 mls/hr IV . [id number] [facility] with Sodium Bicarb (1 Meq/ml) 150 ml Rx#:[id number] Sodium Chloride 0.9% 1, 880 220 000 ml @ 110 mls/hr IV . Q9H6M [facility] Rx#:[id number] Intake, IV Titration 125.171 571.735 100 Amount EPINEPHrine 4 mg In 422.625 Dextrose 5% in Water 250 ml @ 0.01 MCG/KG/MIN 4.5 mls/hr IV .Q24H [facility] Rx#: [id number] EPINEPHrine 4 mg In 52.826 Dextrose 5% in Water 250 ml @ 0.01 MCG/KG/MIN 4. 914 mls/hr IV .Q24H [facility] Rx#:[id number] propofoL 1,000 mg In 72.345 149.110 100 Empty Bag 1 bag @ 5 MCG/ KG/MIN 3.9 mls/hr IV . Q24H [facility] Rx#:[id number] Output: Urine 0 Other: Voiding Method Indwelling Catheter Indwelling Catheter Weight 120 kg 120.4 kg ABP, PAP, CO, CI - Last 8 Hours Arterial Blood Pressure 100/58 Arterial Blood Pressure 113/52 Arterial Blood Pressure 109/54 Arterial Blood Pressure 105/56 Arterial Blood Pressure 104/54 Arterial Blood Pressure 114/51 Arterial Blood Pressure 98/53 Arterial Blood Pressure 110/52 Arterial Blood Pressure 108/52 Arterial Blood Pressure 108/53 Arterial Blood Pressure 110/54 Arterial Blood Pressure 93/53 Arterial Blood Pressure 95/56 Arterial Blood Pressure 92/52 Arterial Blood Pressure 95/51 Arterial Blood Pressure 99/52 Arterial Blood Pressure 109/51 Arterial Blood Pressure 107/55 Arterial Blood Pressure 98/54 Arterial Blood Pressure 92/56 Arterial Blood Pressure 94/59 Arterial Blood Pressure 89/55 Arterial Blood Pressure 93/64 Arterial Blood Pressure 101/60 Arterial Blood Pressure 93/56 Arterial Blood Pressure 110/65 Arterial Blood Pressure 99/61 Arterial Blood Pressure 105/71 Arterial Blood Pressure 110/66 Results 08/13/21 06:09 08/13/21 04:19 Cardiac Enzymes 08/12/21 08/12/21 Range/Units 17:04 17:04 AST 37 H (14-36) U/L Troponin I 0.030 (0.000-0.034) ng/mL Coagulation 08/12/21 Range/Units 17:04 PT 12.1 H (9.0-12.0) sec APTT 19.8 L (22.0-30.0) sec CBC 08/12/21 08/13/21 Range/Units 17:04 06:09 WBC 11.0 H 27.8 H (3.8-10.6) k/uL RBC 4.13 4.44 (3.80-5.40) m/uL Hgb 12.1 13.0 (11.4-16.0) gm/dL Hct 38.2 42.1 (34.0-46.0) % Plt Count 136 L 154 (150-450) k/uL Comprehensive Metabolic Panel 08/12/21 08/13/21 Range/Units 17:04 04:19 Sodium 137 142 (137-145) mmol/L Potassium 4.1 4.0 (3.5-5.1) mmol/L Chloride 100 105 (98-107) mmol/L Carbon Dioxide 24 10 L (22-30) mmol/L BUN 16 22 H (7-17) mg/dL Creatinine 1.02 2.59 H (0.52-1.04) mg/dL Glucose 243 H 304 H (74-99) mg/dL Calcium 10.3 H 7.8 L (8.4-10.2) mg/dL AST 37 H (14-36) U/L ALT 19 (4-34) U/L Alkaline Phosphatase 73 (38-126) U/L Total Protein 6.7 (6.3-8.2) g/dL Albumin 3.7 (3.5-5.0) g/dL Current Medications Generic Name Dose Route Start Last Admin Trade Name Freq PRN Reason Stop Dose Admin Chlorhexidine Gluconate 15 ml 08/13/21 09:00 08/13/21 08:05 Chlorhexidine Gluconate 15 Ml Cup MUCOUS MEM 15 ml BID JOHN [facility]UL Administration Hydrocortisone Sodium Succinate 100 mg 08/13/21 08:00 08/13/21 08:05 Hydrocortisone Succinate 100 Mg/2 Ml Vial IV 100 mg Q8HR [facility]UL Administration Propofol 1,000 mg/ IV Solution 100 mls @ 3.9 mls/hr 08/12/21 17:45 08/13/21 07:57 IV 35 mcg/kg/min .Q24H [facility] 27.3 mls/hr Administration Protocol 5 MCG/KG/MIN Sodium Chloride 1,000 mls @ 110 mls/hr 08/12/21 18:30 08/13/21 04:32 Saline 0.9% IV 110 mls/hr .Q9H6M [facility] Administration Epinephrine HCl 4 mg/ Dextrose 250 mls @ 4.5 mls/hr 08/12/21 23:30 08/13/21 04:42 /Water IV 0.25 mcg/kg/min .Q24H [facility] PAUL 112.5 mls/hr Administration Protocol 0.01 MCG/KG/MIN Acetaminophen 1,000 mg/ IV 100 mls @ 400 mls/hr 08/13/21 06:00 08/13/21 04:16 Solution IVPB 08/14/21 00:14 400 mls/hr Q6HR [facility]UL Administration Piperacillin Sod/Tazobactam 100 mls @ 25 mls/hr 08/13/21 08:00 08/13/21 08:05 Sod 3.375 gm/ Sodium Chloride IVPB 25 mls/hr Q8HR [facility] Administration Protocol Sodium Bicarbonate 150 ml/ 1,150 mls @ 100 mls/hr 08/13/21 04:30 08/13/21 04:41 Dextrose/Water IV 100 mls/hr .[id number] JOHN PAUL Administration Vancomycin HCl 2,500 mg/ 500 mls @ 167 mls/hr 08/14/21 06:00 Sodium Chloride IVPB Q24H [facility] Insulin Aspart 0 unit 08/13/21 00:00 08/13/21 05:57 Insulin Aspart (Novolog) 100 Unit/Ml Vial SQ 8 unit Q6HR [facility]UL Administration Protocol Naloxone HCl 0.2 mg 08/12/21 18:17 Naloxone 0.4 Mg/Ml 1 Ml Vial IV Q2M PRN Opioid Reversal Pantoprazole Sodium 40 mg 08/12/21 18:30 08/13/21 08:05 Pantoprazole 40 Mg/10 Ml Vial IV 40 mg DAILY JOHN PAUL Administration Intake and Output 08/12/21 08/13/21 08/13/21 22:59 06:59 14:59 Intake Total 827.684 6262.735 520 Output Total 0 Balance 940.080 1855.735 520 Intake: IV 1080 420 Dextrose 5% in Water 1, 200 200 000 ml @ 100 mls/hr IV . [id number] [facility] with Sodium Bicarb (1 Meq/ml) 150 ml Rx#:[id number] Sodium Chloride 0.9% 1, 880 220 000 ml @ 110 mls/hr IV . Q9H6M [facility] Rx#:[id number] Intake, IV Titration 125.171 571.735 100 Amount EPINEPHrine 4 mg In 422.625 Dextrose 5% in Water 250 ml @ 0.01 MCG/KG/MIN 4.5 mls/hr IV .Q24H [facility] Rx#: [id number] EPINEPHrine 4 mg In 52.826 Dextrose 5% in Water 250 ml @ 0.01 MCG/KG/MIN 4. 914 mls/hr IV .Q24H [facility] Rx#:[id number] propofoL 1,000 mg In 72.345 149.110 100 Empty Bag 1 bag @ 5 MCG/ KG/MIN 3.9 mls/hr IV . Q24H [facility] Rx#:[id number] Output: Urine 0 Other: Voiding Method Indwelling Catheter Indwelling Catheter Weight 120 kg 120.4 kg 08/13/21 06:09 08/13/21 04:19
--- NOTE | 2021-08-13 08:51 | XR ---
EXAMINATION TYPE: XR chest 1V portable DATE OF EXAM: 08/13/2021 COMPARISON: 08/12/21 HISTORY: SOB, Follow Up FINDINGS: Indwelling tubes and catheters are unchanged. No change in right bibasilar opacities. Stable appearance of the cardio-mediastinal structures at this time. IMPRESSION: 1. Stable portable chest. Clinical correlation and follow up until resolution is recommended.
[2021-08-13] MEDS: NOREPINEPHRINE 32 MG in SODIUM CHLORIDE 0.9% 218 ML IV SCH (10:28)
[2021-08-13 10:47] LABS: ABG Oxygen Saturation 98.1 % (94-97); ABG PCO2 26 mmHg (35-45); ABG PO2 124 mmHg (83-108); ABG TCO2 10 mmol/L (19-24); Allen Test Performed? Yes
[2021-08-13 10:49] LABS: ABG HCO3 10 mmol/L (21-25); ABG PH 7.17 (7.35-7.45)
--- NOTE | 2021-08-13 11:26 | P.PN ---
Subjective Progress Note Date: 08/13/21 Pt is not doing very well today. Remains ventilated, FiO2 50%, saturating 99%. ABG still acidotic to 7.17, PCO2 27. WBC 28, low grade fevers to 100.8; on zosyn. BPs are holding to 100s/70s with levophed at 0.4, dusky extremities; paced in low 50s with multiple PVCs/ ventricular ectopy. UOP is 0; NS/bicarb at 100cc/hr. Neurologically has pupillary reaction to light, but having episodes of facial, eyelid, and right leg twitching; propofol at 75. 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 fib, hypertension, hyperlipidemia, type II DM -Patient currently intubated and unable to take oral medications -Insulin sliding scale blood glucose monitoring DVT prophylaxis -Heparin subcu Goals of care -If patient does not improve in the next 24-48 hours, will require discussion with her next of kin regarding her goals of care The patient is admitted with an anticipated greater than 2 midnight stay for evaluation of cardiac arrest CODE STATUS: Full Code Anticipated discharge date: To be decided Anticipated discharge place: To be decided Objective - Vital Signs Vital signs: Vital Signs Temp 100.8 F H 08/13/21 08:00 Pulse 51 L 08/13/21 11:00 Resp 40 H 08/13/21 11:00 BP 108/53 08/13/21 10:00 Pulse Ox 99 08/13/21 11:00 FiO2 50 08/13/21 11:00 Intake & Output 08/12/21 08/13/21 08/13/21 18:59 06:59 18:59 Intake Total 2.925 0038.773 5262.104 Output Total 0 Balance 2.925 2110.020 5672.104 Weight 120 kg 120.4 kg Intake: IV 1080 1100 Dextrose 5% in Water 1, 200 550 000 ml @ 150 mls/hr IV . Q7H40M [facility] with Sodium Bicarb (1 Meq/ml) 150 ml Rx#:[id number] Sodium Chloride 0.9% 1, 880 550 000 ml @ 110 mls/hr IV . Q9H6M [facility] Rx#:[id number] Intake, IV Titration 2.925 693.981 453.104 Amount EPINEPHrine 4 mg In 422.625 250 Dextrose 5% in Water 250 ml @ 0.01 MCG/KG/MIN 4.5 mls/hr IV .Q24H [facility] Rx#: [id number] EPINEPHrine 4 mg In 52.826 Dextrose 5% in Water 250 ml @ 0.01 MCG/KG/MIN 4. 914 mls/hr IV .Q24H [facility] Rx#:[id number] Norepinephrine 32 mg In 3.104 Sodium Chloride 0.9% 218 ml @ 0.05 MCG/KG/MIN 2. 822 mls/hr IV .Q24H [facility] Rx#:[id number] propofoL 1,000 mg In 2.925 218.530 200.000 Empty Bag 1 bag @ 5 MCG/ KG/MIN 3.9 mls/hr IV . Q24H [facility] Rx#:[id number] Output: Urine 0 Other: Voiding Method Indwelling Catheter Indwelling Catheter ABP, PAP, CO, CI - Last Documented Arterial Blood Pressure 100/56 - Labs CBC & Chem 7: 08/13/21 06:09 08/13/21 04:19 Labs: Abnormal Lab Results - Last 24 Hours (Table) 08/12/21 08/12/21 08/12/21 Range/Units 16:57 17:04 17:04 WBC 11.0 H (3.8-10.6) k/uL Plt Count 136 L (150-450) k/uL Neutrophils # (Manual) (1.3-7.7) k/uL Lymphocytes # (Manual) (1.0-4.8) k/uL Monocytes # (Manual) (0-1.0) k/uL Metamyelocytes # (Man) (0) k/uL Nucleated RBCs (0-0) /100 WBC PT 12.1 H (9.0-12.0) sec APTT 19.8 L (22.0-30.0) sec D-Dimer 1.17 H (<0.60) mg/L FEU ABG pH (7.35-7.45) ABG pCO2 (35-45) mmHg ABG pO2 (83-108) mmHg ABG HCO3 (21-25) mmol/L ABG Total CO2 (19-24) mmol/L ABG O2 Saturation (94-97) % Carbon Dioxide (22-30) mmol/L BUN (7-17) mg/dL Creatinine (0.52-1.04) mg/dL Glucose (74-99) mg/dL POC Glucose (mg/dL) 246 H (70-110) mg/dL Plasma Lactic Acid Raji (0.7-2.0) mmol/L Calcium (8.4-10.2) mg/dL Phosphorus (2.5-4.5) mg/dL AST (14-36) U/L 08/12/21 08/12/21 08/12/21 Range/Units 17:04 17:04 17:46 WBC (3.8-10.6) k/uL Plt Count (150-450) k/uL Neutrophils # (Manual) (1.3-7.7) k/uL Lymphocytes # (Manual) (1.0-4.8) k/uL Monocytes # (Manual) (0-1.0) k/uL Metamyelocytes # (Man) (0) k/uL Nucleated RBCs (0-0) /100 WBC PT (9.0-12.0) sec APTT (22.0-30.0) sec D-Dimer (<0.60) mg/L FEU ABG pH 7.16 L* (7.35-7.45) ABG pCO2 (35-45) mmHg ABG pO2 376 H (83-108) mmHg ABG HCO3 15 L (21-25) mmol/L ABG Total CO2 17 L (19-24) mmol/L ABG O2 Saturation 100.0 H (94-97) % Carbon Dioxide (22-30) mmol/L BUN (7-17) mg/dL Creatinine (0.52-1.04) mg/dL Glucose 243 H (74-99) mg/dL POC Glucose (mg/dL) (70-110) mg/dL Plasma Lactic Acid Raji 8.1 H* (0.7-2.0) mmol/L Calcium 10.3 H (8.4-10.2) mg/dL Phosphorus (2.5-4.5) mg/dL AST 37 H (14-36) U/L 08/12/21 08/12/21 08/13/21 Range/Units 21:58 22:39 00:01 WBC (3.8-10.6) k/uL Plt Count (150-450) k/uL Neutrophils # (Manual) (1.3-7.7) k/uL Lymphocytes # (Manual) (1.0-4.8) k/uL Monocytes # (Manual) (0-1.0) k/uL Metamyelocytes # (Man) (0) k/uL Nucleated RBCs (0-0) /100 WBC PT (9.0-12.0) sec APTT (22.0-30.0) sec D-Dimer (<0.60) mg/L FEU ABG pH 7.03 L* (7.35-7.45) ABG pCO2 54 H (35-45) mmHg ABG pO2 (83-108) mmHg ABG HCO3 14 L (21-25) mmol/L ABG Total CO2 16 L (19-24) mmol/L ABG O2 Saturation 93.6 L (94-97) % Carbon Dioxide (22-30) mmol/L BUN (7-17) mg/dL Creatinine (0.52-1.04) mg/dL Glucose (74-99) mg/dL POC Glucose (mg/dL) 425 H (70-110) mg/dL Plasma Lactic Acid Raji 13.4 H* (0.7-2.0) mmol/L Calcium (8.4-10.2) mg/dL Phosphorus (2.5-4.5) mg/dL AST (14-36) U/L 08/13/21 08/13/21 08/13/21 Range/Units 00:03 00:40 03:04 WBC (3.8-10.6) k/uL Plt Count (150-450) k/uL Neutrophils # (Manual) (1.3-7.7) k/uL Lymphocytes # (Manual) (1.0-4.8) k/uL Monocytes # (Manual) (0-1.0) k/uL Metamyelocytes # (Man) (0) k/uL Nucleated RBCs (0-0) /100 WBC PT (9.0-12.0) sec APTT (22.0-30.0) sec D-Dimer (<0.60) mg/L FEU ABG pH 7.19 L* (7.35-7.45) ABG pCO2 (35-45) mmHg ABG pO2 (83-108) mmHg ABG HCO3 15 L (21-25) mmol/L ABG Total CO2 16 L (19-24) mmol/L ABG O2 Saturation 97.6 H (94-97) % Carbon Dioxide (22-30) mmol/L BUN (7-17) mg/dL Creatinine (0.52-1.04) mg/dL Glucose (74-99) mg/dL POC Glucose (mg/dL) 264 H (70-110) mg/dL Plasma Lactic Acid Raji 17.4 H* (0.7-2.0) mmol/L Calcium (8.4-10.2) mg/dL Phosphorus (2.5-4.5) mg/dL AST (14-36) U/L 08/13/21 08/13/21 08/13/21 Range/Units 04:19 05:49 05:52 WBC (3.8-10.6) k/uL Plt Count (150-450) k/uL Neutrophils # (Manual) (1.3-7.7) k/uL Lymphocytes # (Manual) (1.0-4.8) k/uL Monocytes # (Manual) (0-1.0) k/uL Metamyelocytes # (Man) (0) k/uL Nucleated RBCs (0-0) /100 WBC PT (9.0-12.0) sec APTT (22.0-30.0) sec D-Dimer (<0.60) mg/L FEU ABG pH 7.11 L* (7.35-7.45) ABG pCO2 32 L (35-45) mmHg ABG pO2 118 H (83-108) mmHg ABG HCO3 10 L* (21-25) mmol/L ABG Total CO2 11 L (19-24) mmol/L ABG O2 Saturation 97.4 H (94-97) % Carbon Dioxide 10 L (22-30) mmol/L BUN 22 H (7-17) mg/dL Creatinine 2.59 H (0.52-1.04) mg/dL Glucose 304 H (74-99) mg/dL POC Glucose (mg/dL) 312 H (70-110) mg/dL Plasma Lactic Acid Raji (0.7-2.0) mmol/L Calcium 7.8 L (8.4-10.2) mg/dL Phosphorus 10.1 H* (2.5-4.5) mg/dL AST (14-36) U/L 08/13/21 08/13/21 08/13/21 Range/Units 06:09 06:09 08:46 WBC 27.8 H (3.8-10.6) k/uL Plt Count (150-450) k/uL Neutrophils # (Manual) 25.80 H (1.3-7.7) k/uL Lymphocytes # (Manual) 0.83 L (1.0-4.8) k/uL Monocytes # (Manual) 1.39 H (0-1.0) k/uL Metamyelocytes # (Man) 0.28 H (0) k/uL Nucleated RBCs 1 H (0-0) /100 WBC PT (9.0-12.0) sec APTT (22.0-30.0) sec D-Dimer (<0.60) mg/L FEU ABG pH (7.35-7.45) ABG pCO2 (35-45) mmHg ABG pO2 (83-108) mmHg ABG HCO3 (21-25) mmol/L ABG Total CO2 (19-24) mmol/L ABG O2 Saturation (94-97) % Carbon Dioxide (22-30) mmol/L BUN (7-17) mg/dL Creatinine (0.52-1.04) mg/dL Glucose (74-99) mg/dL POC Glucose (mg/dL) (70-110) mg/dL Plasma Lactic Acid Raji 19.1 H* 21.0 H* (0.7-2.0) mmol/L Calcium (8.4-10.2) mg/dL Phosphorus (2.5-4.5) mg/dL AST (14-36) U/L 08/13/21 Range/Units 10:40 WBC (3.8-10.6) k/uL Plt Count (150-450) k/uL Neutrophils # (Manual) (1.3-7.7) k/uL Lymphocytes # (Manual) (1.0-4.8) k/uL Monocytes # (Manual) (0-1.0) k/uL Metamyelocytes # (Man) (0) k/uL Nucleated RBCs (0-0) /100 WBC PT (9.0-12.0) sec APTT (22.0-30.0) sec D-Dimer (<0.60) mg/L FEU ABG pH 7.17 L* (7.35-7.45) ABG pCO2 26 L (35-45) mmHg ABG pO2 124 H (83-108) mmHg ABG HCO3 10 L* (21-25) mmol/L ABG Total CO2 10 L (19-24) mmol/L ABG O2 Saturation 98.1 H (94-97) % Carbon Dioxide (22-30) mmol/L BUN (7-17) mg/dL Creatinine (0.52-1.04) mg/dL Glucose (74-99) mg/dL POC Glucose (mg/dL) (70-110) mg/dL Plasma Lactic Acid Raji (0.7-2.0) mmol/L Calcium (8.4-10.2) mg/dL Phosphorus (2.5-4.5) mg/dL AST (14-36) U/L
[2021-08-13] MEDS ORDERED: levETIRAcetam IV 500 MG in SODIUM CHLORIDE 0.9% 100 ML IVPB STA (12:15)
--- NOTE | 2021-08-13 12:45 | P.CNNES ---
History of Present Illness Consult date: 08/13/21 Requesting physician: Rolanda Cordon Reason for Consult: cardiac arrest, anoxic brain injury History of Present Illness: This is a 45-year-old woman with history of sarcoidosis, nonischemic cardiomyopathy status post AICD, atrial fibrillation on eliquis, vegetation of the heart, Escobedo's palsy with right facial droop, multiple sclerosis, cardiac sarcoidosis concussion at age 12, type 2 diabetes, hypertension, hyperlipidemia who presented emergency department on 08/12/2021 after the patient suffered cardiac arrest at home. History is obtained from medical record. It seems the patient was with her at home and/or getting ready to have sexual intercourse and then became unresponsive. It seems EMS found the patient to have shallow respiration and low oxygenation and weak pulse and patient decompensated to cardiac arrest and CPR was performed and was apparently found to be in V. fib and cardioverted. Per the nurse unknown exact downtime but possibly between 15-20 minutes. As a result the patient was intubated on a ventilator. Of note for the patient's nurse patient is having some twitching of the right eye as well as the chin region and bilateral thigh. It is intermittent. She is on a high dose of IV propofol. I spoke with the patient's and he denied the patient has any history of seizures or strokes in the past. It seems that the patient had a TEODORO on 07/19/2021nd was found to have atrial vegetation and on 07/21/2021 underwent extraction of the right atrial lead and had a right ventricular ICD. Patient was discharged home with a PICC line for 6 weeks course of antibiotic. Some of the workup in our facility during this admission consisted of: Patient's systolic blood pressure dips down in the systolic in the 90s and diastolic in the 50. Patient is on epinephrine. AST and ALT on presentation is normal. Creatinine on presentation is 1.02 and current BUN is 22. The plasma lactic acid vein is trending up and the most current one is 21.0 Patient the POC glucose has been in the range of 200 to 400s. Phosphorus is 10.1 Review of Systems Review of system is limited but the per positive and negative as per HPI. Past Medical History Past Medical History: Atrial Fibrillation, Heart Failure, Diabetes Mellitus, GI Bleed, Hyperlipidemia, Hypertension, Myocardial Infarction (NE), Musculoskeletal Disorder, Pneumonia, Skin Disorder, Sleep Apnea/CPAP/BIPAP, Thyroid Disorder Additional Past Medical History / Comment(s): "Have had 6 months of walking Pneumonia". Hx steroid induced gluacoma(resolved). Neurosarcoidosis, sarcoidosis which caused heart problems. Eczema. Hx [place] Palsy with right facial droop. Hx concussion at age 12, has some learning disablity-problems with spelling. MS. Graves Disease, " 7 auto immune diseases". DDD. CPAP use. "Weakness all over". Diarrhea and occasional blood in stool. "27 lesions on her brain". "INTERMITTENT GI BLEED" AND PROBLEMS SWALLOWING. pacemaker placement 07/21/2021 Last Myocardial Infarction Date:: 11/15/20 History of Any Multi-Drug Resistant Organisms: MRSA Date of last positivie culture/infection: 07/19/21 MDRO Source:: MRSA BLOOD Past Surgical History: AICD, Cholecystectomy, Heart Catheterization Additional Past Surgical History / Comment(s): VENOGRAM W/CINEFLUROSCOPY. Past Anesthesia/Blood Transfusion Reactions: No Reported Reaction Additional Past Anesthesia/Blood Transfusion Reaction / Comment(s): Claustrophobia. Type of Cardiac Device: Permanent Pacemaker, AICD Device Placement Date:: 03/01 Past Psychological History: ADD/ADHD, Anxiety, Depression Additional Psychological History / Comment(s): Hx panic attacks. Claustrophobia. Smoking Status: Never smoker Past Alcohol Use History: None Reported Past Drug Use History: None Reported - Past Family History Mother Family Medical History: AFIB, Deep Vein Thrombosis (DVT) Father Family Medical History: Osteoarthritis (OA), Thyroid Disorder Medications and Allergies Home Medications Medication Instructions Recorded Confirmed Type metFORMIN HCL [Glucophage] 1,000 mg PO BID-W/MEALS 11/10/17 08/12/21 History Ezetimibe [Zetia] 10 mg PO DAILY 10/06/18 08/12/21 History Apixaban [Eliquis] 5 mg PO BID #180 tab 02/15/19 08/12/21 Rx PARoxetine HCL 30 mg PO DAILY 06/23/19 08/12/21 History Artificial Tears-Hypromellose 1 drop BOTH EYES TID PRN 11/13/20 08/12/21 History [Artificial Tear Drops] Albuterol Inhaler [Ventolin Hfa 2 puff INHALATION RT-Q4H PRN 06/26/21 08/12/21 History Inhaler] Acetaminophen [Tylenol] 1,000 mg PO Q4-6H PRN 07/01/21 08/12/21 History Latanoprost/Pf [Latanoprost 0.005% 1 drop RIGHT EYE HS 07/01/21 08/12/21 History Eye Drop] Levothyroxine Sodium [Synthroid] 175 mcg PO DAILY 07/01/21 08/12/21 History glipiZIDE [Glucotrol] 5 mg PO AC-BRKFST #30 tab 07/05/21 08/12/21 Rx guaiFENesin-Coden 100-10MG/5ML 10 ml PO TID PRN #1000 ml 07/05/21 08/12/21 Rx [Robitussin AC] HYDROcodone/APAP 5-325MG [[place] 1 tab PO Q6HR PRN 3 Days #12 tab 07/11/21 08/12/21 Rx 5-325] Fenofibrate [Lofibra] 160 mg PO DAILY 07/14/21 08/12/21 History Pantoprazole [Protonix] 40 mg PO AC-BID #60 tab 07/25/21 08/12/21 Rx Vancomycin 2,000 mg IVPB Q12HR each 07/25/21 08/12/21 Rx predniSONE 10 mg PO DAILY 07/30/21 08/12/21 History Furosemide [Lasix] 40 mg PO BID@0900,1600 #180 tab 08/01/21 08/12/21 Rx Metoprolol Succinate (ER) [Toprol 25 mg PO DAILY #90 tab 08/01/21 08/12/21 Rx XL] Allergies Allergy/AdvReac Type Severity Reaction Status Date / Time Smmoulw-YFI-AtB Reductase AdvReac FACIAL Verified 08/12/21 19:16 Inhibitor NUMBNESS [Ushjzfr-Hfs-Tkp Reductase Inhibitor] SEAFOOD Allergy Rash/Hives Uncoded 07/30/21 17:18 Physical Examination - Vital Signs Vital Signs: Vital Signs Temp Pulse Resp BP Pulse Ox FiO2 08/13/21 11:20 50 08/13/21 11:00 51 L 40 H 99 50 08/13/21 10:30 50 L 31 H 98 50 08/13/21 10:00 54 L 30 H 108/53 96 50 08/13/21 09:30 55 L 31 H 98 50 08/13/21 09:00 55 L 28 H 99 50 08/13/21 08:30 53 L 28 H 98 50 08/13/21 08:15 55 L 28 H 99 08/13/21 08:00 100.8 F H 53 L 31 H 96/53 99 50 08/13/21 07:45 54 L 28 H 98 50 08/13/21 07:30 53 L 29 H 98 50 08/13/21 07:15 53 L 29 H 96 08/13/21 07:00 53 L 29 H 98 50 08/13/21 06:45 52 L 29 H 99 08/13/21 06:30 52 L 29 H 91 L 50 08/13/21 06:15 52 L 29 H 97 08/13/21 06:00 52 L 29 H 98 50 08/13/21 05:45 52 L 29 H 99 08/13/21 05:30 51 L 29 H 98 50 08/13/21 05:15 53 L 29 H 99 08/13/21 05:00 100.7 F H 53 L 30 H 99 50 08/13/21 04:45 51 L 30 H 98 08/13/21 04:30 55 L 28 H 100 50 08/13/21 04:15 50 L 28 H 100 08/13/21 04:00 102.8 F H 49 L 28 H 100 50 08/13/21 03:45 54 L 28 H 99 08/13/21 03:30 50 L 8 L 100 50 08/13/21 03:26 50 08/13/21 03:15 49 L 28 H 100 08/13/21 03:00 52 L 28 H 99 50 08/13/21 02:45 53 L 28 H 99 50 08/13/21 02:30 49 L 28 H 98 50 08/13/21 02:15 56 L 28 H 96/61 98 08/13/21 02:00 51 L 28 H 97 50 08/13/21 01:45 51 L 29 H 98 08/13/21 01:30 58 L 30 H 96 50 08/13/21 01:15 57 L 30 H 97 08/13/21 01:00 55 L 28 H 97 50 08/13/21 00:45 54 L 28 H 96 08/13/21 00:30 55 L 29 H 81/54 97 50 08/13/21 00:15 52 L 28 H 97 08/13/21 00:00 98.2 F 54 L 29 H 97/58 97 50 08/12/21 23:53 65 28 H 96 08/12/21 23:45 52 L 28 H 97 50 08/12/21 23:30 57 L 28 H 96 50 08/12/21 23:27 56 L 28 H 92 L 50 08/12/21 23:23 50 08/12/21 22:45 50 08/12/21 21:15 65 18 143/91 99 08/12/21 20:27 62 18 98/70 98 08/12/21 20:00 65 16 102/78 99 08/12/21 19:48 50 08/12/21 19:23 98.0 F 64 16 104/69 97 08/12/21 19:05 80 18 116/78 98 08/12/21 18:39 68 16 141/76 98 08/12/21 17:53 82 16 141/82 100 08/12/21 17:32 100 08/12/21 17:22 69 16 131/99 08/12/21 17:21 100 08/12/21 17:14 80 18 125/106 08/12/21 17:00 75 18 125/108 100 Intake and Output 08/12/21 08/13/21 08/13/21 22:59 06:59 14:59 Intake Total 659.048 5832.735 1553.104 Output Total 0 Balance 133.448 1522.735 1553.104 Intake: IV 1080 1100 Dextrose 5% in Water 1, 200 550 000 ml @ 150 mls/hr IV . Q7H40M [facility] with Sodium Bicarb (1 Meq/ml) 150 ml Rx#:[id number] Sodium Chloride 0.9% 1, 880 550 000 ml @ 110 mls/hr IV . Q9H6M [facility] Rx#:[id number] Intake, IV Titration 125.171 571.735 453.104 Amount EPINEPHrine 4 mg In 422.625 250 Dextrose 5% in Water 250 ml @ 0.01 MCG/KG/MIN 4.5 mls/hr IV .Q24H [facility] Rx#: [id number] EPINEPHrine 4 mg In 52.826 Dextrose 5% in Water 250 ml @ 0.01 MCG/KG/MIN 4. 914 mls/hr IV .Q24H [facility] Rx#:[id number] Norepinephrine 32 mg In 3.104 Sodium Chloride 0.9% 218 ml @ 0.05 MCG/KG/MIN 2. 822 mls/hr IV .Q24H [facility] Rx#:[id number] propofoL 1,000 mg In 72.345 149.110 200.000 Empty Bag 1 bag @ 5 MCG/ KG/MIN 3.9 mls/hr IV . Q24H [facility] Rx#:[id number] Output: Urine 0 Other: Voiding Method Indwelling Catheter Indwelling Catheter Indwelling Catheter Weight 120 kg 120.4 kg ABP, PAP, CO, CI - Last 8 Hours Arterial Blood Pressure 100/56 Arterial Blood Pressure 109/56 Arterial Blood Pressure 97/54 Arterial Blood Pressure 127/58 Arterial Blood Pressure 122/57 Arterial Blood Pressure 110/57 Arterial Blood Pressure 115/58 Arterial Blood Pressure 108/56 Arterial Blood Pressure 116/56 Arterial Blood Pressure 100/58 Arterial Blood Pressure 113/52 Arterial Blood Pressure 109/54 Arterial Blood Pressure 105/56 Arterial Blood Pressure 104/54 Arterial Blood Pressure 114/51 Arterial Blood Pressure 98/53 Arterial Blood Pressure 110/52 Arterial Blood Pressure 108/52 Arterial Blood Pressure 108/53 Arterial Blood Pressure 110/54 Arterial Blood Pressure 93/53 Arterial Blood Pressure 95/56 Arterial Blood Pressure 92/52 GENERAL: The patient is lying in bed and does not appear in acute distress. CHEST: The heart rate is regular rate rhythm. No murmurs to auscultation. LUNG: Clear to auscultation bilaterally no wheezing noted throughout. Not labored breathing. Intubated on ventilator. ABDOMEN/GI: Bowel sounds present in all 4 quadrants. No tenderness to palpation throughout. NEUROLOGICAL: Limited because of her condition. Is on IV Propofol 75mcg/kg/min Higher mental function: Is comatose GCS 3 (E1, VT1, M1) Cranial nerves: I had to manually open her eyes and right pupil is 2mm while left is 3mm and reactive to light. -ve corneal reflex bilaterally. -ve occulocpehalic. No facial weakness. Has right upper eyelid twitching. Is breathing over the vent. +ve weak gag Motor: The strength is unable to assess but to painful stimuli not withdrawing. Cerebellum: Unable to assess. Sensation: Unable to assess light touch. But to painful stimuli not withdrawing. Reflexes (right/left): 1+ thorughout. Plantars are mute bilaterally. Results - Laboratory Findings CBC and BMP: 08/13/21 06:09 08/13/21 04:19 Abnormal Lab Findings: Abnormal Labs 08/12/21 08/12/21 08/12/21 16:57 17:04 17:04 WBC 11.0 H Plt Count 136 L Neutrophils # (Manual) Lymphocytes # (Manual) Monocytes # (Manual) Metamyelocytes # (Man) Nucleated RBCs PT 12.1 H APTT 19.8 L D-Dimer 1.17 H ABG pH ABG pCO2 ABG pO2 ABG HCO3 ABG Total CO2 ABG O2 Saturation Carbon Dioxide BUN Creatinine Glucose POC Glucose (mg/dL) 246 H Plasma Lactic Acid Raji Calcium Phosphorus AST 08/12/21 08/12/21 08/12/21 17:04 17:04 17:46 WBC Plt Count Neutrophils # (Manual) Lymphocytes # (Manual) Monocytes # (Manual) Metamyelocytes # (Man) Nucleated RBCs PT APTT D-Dimer ABG pH 7.16 L* ABG pCO2 ABG pO2 376 H ABG HCO3 15 L ABG Total CO2 17 L ABG O2 Saturation 100.0 H Carbon Dioxide BUN Creatinine Glucose 243 H POC Glucose (mg/dL) Plasma Lactic Acid Raji 8.1 H* Calcium 10.3 H Phosphorus AST 37 H 08/12/21 08/12/21 08/13/21 21:58 22:39 00:01 WBC Plt Count Neutrophils # (Manual) Lymphocytes # (Manual) Monocytes # (Manual) Metamyelocytes # (Man) Nucleated RBCs PT APTT D-Dimer ABG pH 7.03 L* ABG pCO2 54 H ABG pO2 ABG HCO3 14 L ABG Total CO2 16 L ABG O2 Saturation 93.6 L Carbon Dioxide BUN Creatinine Glucose POC Glucose (mg/dL) 425 H Plasma Lactic Acid Raji 13.4 H* Calcium Phosphorus AST 08/13/21 08/13/21 08/13/21 00:03 00:40 03:04 WBC Plt Count Neutrophils # (Manual) Lymphocytes # (Manual) Monocytes # (Manual) Metamyelocytes # (Man) Nucleated RBCs PT APTT D-Dimer ABG pH 7.19 L* ABG pCO2 ABG pO2 ABG HCO3 15 L ABG Total CO2 16 L ABG O2 Saturation 97.6 H Carbon Dioxide BUN Creatinine Glucose POC Glucose (mg/dL) 264 H Plasma Lactic Acid Raji 17.4 H* Calcium Phosphorus AST 08/13/21 08/13/21 08/13/21 04:19 05:49 05:52 WBC Plt Count Neutrophils # (Manual) Lymphocytes # (Manual) Monocytes # (Manual) Metamyelocytes # (Man) Nucleated RBCs PT APTT D-Dimer ABG pH 7.11 L* ABG pCO2 32 L ABG pO2 118 H ABG HCO3 10 L* ABG Total CO2 11 L ABG O2 Saturation 97.4 H Carbon Dioxide 10 L BUN 22 H Creatinine 2.59 H Glucose 304 H POC Glucose (mg/dL) 312 H Plasma Lactic Acid Raji Calcium 7.8 L Phosphorus 10.1 H* AST 08/13/21 08/13/21 08/13/21 06:09 06:09 08:46 WBC 27.8 H Plt Count Neutrophils # (Manual) 25.80 H Lymphocytes # (Manual) 0.83 L Monocytes # (Manual) 1.39 H Metamyelocytes # (Man) 0.28 H Nucleated RBCs 1 H PT APTT D-Dimer ABG pH ABG pCO2 ABG pO2 ABG HCO3 ABG Total CO2 ABG O2 Saturation Carbon Dioxide BUN Creatinine Glucose POC Glucose (mg/dL) Plasma Lactic Acid Raji 19.1 H* 21.0 H* Calcium Phosphorus AST 08/13/21 10:40 WBC Plt Count Neutrophils # (Manual) Lymphocytes # (Manual) Monocytes # (Manual) Metamyelocytes # (Man) Nucleated RBCs PT APTT D-Dimer ABG pH 7.17 L* ABG pCO2 26 L ABG pO2 124 H ABG HCO3 10 L* ABG Total CO2 10 L ABG O2 Saturation 98.1 H Carbon Dioxide BUN Creatinine Glucose POC Glucose (mg/dL) Plasma Lactic Acid Raji Calcium Phosphorus AST Assessment and Plan Assessment: Anoxic encephalopathy due to cardiac arrest. Unable to determine extent of anoxic brain injury at this time Also a component of patient's encephalopathy due to cardiogenic shock with metabolic derangement as well as medication (IV Propofol) Cardiac arrest unsure exactly downtime but per nurse possible around 15-2 0minutes. Rhythm with V.Fib Myoclonus (with episodes of right eye/facial twitching, chin and bilateral thigh) due to cardiac arrest Cardiogenic shock Acute kidney insufficiency History of Cardiac sarcoidosis Systolic congestive heart failure status post AICD Recent admission for MRSA bacteremia, AICD vegetation atrial fibrillation on eliquis History of mulitple sclerosis Type 2 diabetes Plan: I ordered an urgent EEG. I also started the patient on Keppra 500 mg every 12 hours with a loading of 500 avoid any higher dose of 500 loading because of her kidney insufficiency. I ordered a CT of the head without Every 2 neurochecks Please avoid hypotensive episodes. Cardiology is on board We'll defer the rest of the medical management to the primary and ICU team Patient condition is critical Currently the patient is not brain and she has few brainstem reflexes. Exam is limited especially since the patient is on IV sedation. The plan is discussed with the patient's was at bedside as well as the nurse. Thank you for the consultation. Hector Calderon M.D. Neuro-Hospitalist Time with Patient: Greater than 30
[2021-08-13 12:46] LABS: Glucose,Whole Blood 381 mg/dL (70-110)
[2021-08-13] MEDS ORDERED: FUROSEMIDE 10 MG/ML 10 ML VIAL IV STA (14:33)
--- NOTE | 2021-08-13 14:37 | EEG ---
ELECTROENCEPHALOGRAM REPORT DATE OF SERVICE: 08/13/2021 CLINICAL HISTORY: This is a 45-year-old woman with right facial twitching as well as right leg twitching post cardiac arrest. The video EEG is obtained to evaluate for seizure epileptiform activity. RELEVANT MEDICATION: IV propofol. EEG TYPE: A routine 21 channel EEG is performed with video using the 10/20 electrode placement system. DESCRIPTION: The patient is intubated on a ventilator. The background consists of very low voltage of 0.5 hertz activity and appears diffuse. There is a moderate amount of myogenic artifact over bilateral frontal, mostly right more than the left. Interictal and ictal is none. ACTIVATION PROCEDURE: Photic stimulation. Hyperventilation is not performed. CLINICAL INTERPRETATION: This is an abnormal routine EEG. The background slowing is suggestive of severe encephalopathy. There is no focal slowing, epileptiform discharge or seizure on the EEG. Clinical correlation is recommended. VALERIANO / GARTH: [id number] / MTDD
--- NOTE | 2021-08-13 14:49 | P.CNPUL ---
History of Present Illness Consult date: 08/13/21 Requesting physician: Ana Bardales Reason for consult: other (Cardiac arrest) Chief complaint: Cardiac arrest History of present illness: This is a 45-year-old female known to my service from previous admission. Patient had history of nonischemic cardiomyopathy and previous AICD placement. History of cardiac sarcoidosis. Patient was recently in the hospital from 07/14 until 07/26 for MRSA bacteremia and pacemaker lead vegetation. Patient was seen on consultation by us and by infectious disease, she underwent extraction of the right atrial lead, LV lead and RV ICD lead, then she had implantation of the new RV pacing lead and implantation of single-chamber pacemaker generator in the pocket. Patient was discharged home with a PICC line in place, and she was receiving antibiotics for a total of 6 weeks supposedly yesterday, during sexual intercourse, patient became unresponsive according to her . EMS was notified, and upon arrival she was noted to have very weak pulses, and shallow respirations. Patient was noted to be in ventricular fibrillation and she was cardioverted. CPR was also performed. Patient remained apneic and unresponsive and there was difficulty removing the patient from the house. Patient also had additional cardiac arrest. She was eventually brought into the ER, and admitted to the ICU. Her down time must have been about 20 minutes. Patient is known to have history of LV dysfunction, echocardiogram in June showed LV dysfunction with ejection fraction of 35-40%. Patient is also known to have mitral regurgitation, severe global LV dysfunction. Patient was admitted to the ICU yesterday, and she is now on mechanical ventilation with assist control of 28 tidal volume 450 FiO2 50% PEEP of 5. ABG showed a pO2 of 118 pCO2 32 pH of 7.11. Patient received bicarbonate earlier and she is on a bicarb drip at 100 mL per hour. She is also on propofol at 50 mcg/kg/m and epinephrine at 0.2, however I'm planning to transition epinephrine to norepinephrine and eventually discontinue epinephrine. Chest x-ray showed no evidence of active disease, different lines and indwelling catheter seemed to be in proper position. 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 Patient was empirically started on Keppra for potential seizure activity. Labs today showed leukocytosis with WBC of 27.8 hemoglobin 13. Repeat ABG showed a pO2 of 124 pCO2 26 pH of 7.17. Creatinine jumped up from 1.02 on admission to 2.59 this morning. Blood sugars are in the range of 304. Lactic acid as high as 21. Patient was placed on stress doses of hydrocortisone. She is also on antibiotics in the form of Zosyn. And she is on bicarb drip. Review of Systems ROS unobtainable: due to mental status Past Medical History Past Medical History: Atrial Fibrillation, Heart Failure, Diabetes Mellitus, GI Bleed, Hyperlipidemia, Hypertension, Myocardial Infarction (SC), Musculoskeletal Disorder, Pneumonia, Skin Disorder, Sleep Apnea/CPAP/BIPAP, Thyroid Disorder Additional Past Medical History / Comment(s): "Have had 6 months of walking Pneumonia". Hx steroid induced gluacoma(resolved). Neurosarcoidosis, sarcoidosis which caused heart problems. Eczema. Hx [place] Palsy with right facial droop. Hx concussion at age 12, has some learning disablity-problems with spelling. MS. Graves Disease, " 7 auto immune diseases". DDD. CPAP use. "Weakness all over". Diarrhea and occasional blood in stool. "27 lesions on her brain". "INTERMITTENT GI BLEED" AND PROBLEMS SWALLOWING. pacemaker placement 07/21/2021 Last Myocardial Infarction Date:: 11/15/20 History of Any Multi-Drug Resistant Organisms: MRSA Date of last positivie culture/infection: 07/19/21 MDRO Source:: MRSA BLOOD Past Surgical History: AICD, Cholecystectomy, Heart Catheterization Additional Past Surgical History / Comment(s): VENOGRAM W/CINEFLUROSCOPY. Past Anesthesia/Blood Transfusion Reactions: No Reported Reaction Additional Past Anesthesia/Blood Transfusion Reaction / Comment(s): Claustrophobia. Type of Cardiac Device: Permanent Pacemaker, AICD Device Placement Date:: 03/01 Past Psychological History: ADD/ADHD, Anxiety, Depression Additional Psychological History / Comment(s): Hx panic attacks. Claustrophobia. Smoking Status: Never smoker Past Alcohol Use History: None Reported Past Drug Use History: None Reported - Past Family History Mother Family Medical History: AFIB, Deep Vein Thrombosis (DVT) Father Family Medical History: Osteoarthritis (OA), Thyroid Disorder Medications and Allergies Home Medications Medication Instructions Recorded Confirmed Type metFORMIN HCL [Glucophage] 1,000 mg PO BID-W/MEALS 11/10/17 08/12/21 History Ezetimibe [Zetia] 10 mg PO DAILY 10/06/18 08/12/21 History Apixaban [Eliquis] 5 mg PO BID #180 tab 02/15/19 08/12/21 Rx PARoxetine HCL 30 mg PO DAILY 06/23/19 08/12/21 History Artificial Tears-Hypromellose 1 drop BOTH EYES TID PRN 11/13/20 08/12/21 History [Artificial Tear Drops] Albuterol Inhaler [Ventolin Hfa 2 puff INHALATION RT-Q4H PRN 06/26/21 08/12/21 History Inhaler] Acetaminophen [Tylenol] 1,000 mg PO Q4-6H PRN 07/01/21 08/12/21 History Latanoprost/Pf [Latanoprost 0.005% 1 drop RIGHT EYE HS 07/01/21 08/12/21 History Eye Drop] Levothyroxine Sodium [Synthroid] 175 mcg PO DAILY 07/01/21 08/12/21 History glipiZIDE [Glucotrol] 5 mg PO AC-BRKFST #30 tab 07/05/21 08/12/21 Rx guaiFENesin-Coden 100-10MG/5ML 10 ml PO TID PRN #1000 ml 07/05/21 08/12/21 Rx [Robitussin AC] HYDROcodone/APAP 5-325MG [[place] 1 tab PO Q6HR PRN 3 Days #12 tab 07/11/21 08/12/21 Rx 5-325] Fenofibrate [Lofibra] 160 mg PO DAILY 07/14/21 08/12/21 History Pantoprazole [Protonix] 40 mg PO AC-BID #60 tab 07/25/21 08/12/21 Rx Vancomycin 2,000 mg IVPB Q12HR each 07/25/21 08/12/21 Rx predniSONE 10 mg PO DAILY 07/30/21 08/12/21 History Furosemide [Lasix] 40 mg PO BID@0900,1600 #180 tab 08/01/21 08/12/21 Rx Metoprolol Succinate (ER) [Toprol 25 mg PO DAILY #90 tab 08/01/21 08/12/21 Rx XL] Allergies Allergy/AdvReac Type Severity Reaction Status Date / Time Pmogolk-CZV-TqD Reductase AdvReac FACIAL Verified 08/12/21 19:16 Inhibitor NUMBNESS [Omcczjc-Itn-Yiu Reductase Inhibitor] SEAFOOD Allergy Rash/Hives Uncoded 07/30/21 17:18 Physical Exam Vitals: Vital Signs Temp Pulse Resp BP Pulse Ox FiO2 08/13/21 14:00 52 L 30 H 95 50 08/13/21 13:30 52 L 30 H 93 L 50 08/13/21 13:00 51 L 32 H 90 L 50 08/13/21 12:30 50 L 31 H 95 50 08/13/21 12:00 101.7 F H 50 L 32 H 96 50 08/13/21 11:30 49 L 30 H 97 50 08/13/21 11:20 50 08/13/21 11:00 51 L 40 H 99 50 08/13/21 10:30 50 L 31 H 98 50 08/13/21 10:00 54 L 30 H 108/53 96 50 08/13/21 09:30 55 L 31 H 98 50 08/13/21 09:00 55 L 28 H 99 50 08/13/21 08:30 53 L 28 H 98 50 08/13/21 08:15 55 L 28 H 99 08/13/21 08:00 100.8 F H 53 L 31 H 96/53 99 50 08/13/21 07:45 54 L 28 H 98 50 08/13/21 07:30 53 L 29 H 98 50 08/13/21 07:15 53 L 29 H 96 08/13/21 07:00 53 L 29 H 98 50 08/13/21 06:45 52 L 29 H 99 08/13/21 06:30 52 L 29 H 91 L 50 08/13/21 06:15 52 L 29 H 97 08/13/21 06:00 52 L 29 H 98 50 08/13/21 05:45 52 L 29 H 99 08/13/21 05:30 51 L 29 H 98 50 08/13/21 05:15 53 L 29 H 99 08/13/21 05:00 100.7 F H 53 L 30 H 99 50 08/13/21 04:45 51 L 30 H 98 08/13/21 04:30 55 L 28 H 100 50 08/13/21 04:15 50 L 28 H 100 08/13/21 04:00 102.8 F H 49 L 28 H 100 50 08/13/21 03:45 54 L 28 H 99 08/13/21 03:30 50 L 8 L 100 50 08/13/21 03:26 50 08/13/21 03:15 49 L 28 H 100 08/13/21 03:00 52 L 28 H 99 50 08/13/21 02:45 53 L 28 H 99 50 08/13/21 02:30 49 L 28 H 98 50 08/13/21 02:15 56 L 28 H 96/61 98 08/13/21 02:00 51 L 28 H 97 50 08/13/21 01:45 51 L 29 H 98 08/13/21 01:30 58 L 30 H 96 50 08/13/21 01:15 57 L 30 H 97 08/13/21 01:00 55 L 28 H 97 50 08/13/21 00:45 54 L 28 H 96 08/13/21 00:30 55 L 29 H 81/54 97 50 08/13/21 00:15 52 L 28 H 97 08/13/21 00:00 98.2 F 54 L 29 H 97/58 97 50 08/12/21 23:53 65 28 H 96 08/12/21 23:45 52 L 28 H 97 50 08/12/21 23:30 57 L 28 H 96 50 08/12/21 23:27 56 L 28 H 92 L 50 08/12/21 23:23 50 08/12/21 22:45 50 08/12/21 21:15 65 18 143/91 99 08/12/21 20:27 62 18 98/70 98 08/12/21 20:00 65 16 102/78 99 08/12/21 19:48 50 08/12/21 19:23 98.0 F 64 16 104/69 97 08/12/21 19:05 80 18 116/78 98 08/12/21 18:39 68 16 141/76 98 08/12/21 17:53 82 16 141/82 100 08/12/21 17:32 100 08/12/21 17:22 69 16 131/99 08/12/21 17:21 100 08/12/21 17:14 80 18 125/106 08/12/21 17:00 75 18 125/108 100 Intake and Output 08/12/21 08/13/21 08/13/21 22:59 06:59 14:59 Intake Total 511.001 9744.735 2477.689 Output Total 0 Balance 696.437 5047.735 2477.689 Intake: IV 1080 1880 Dextrose 5% in Water 1, 200 1000 000 ml @ 150 mls/hr IV . Q7H40M [facility] with Sodium Bicarb (1 Meq/ml) 150 ml Rx#:[id number] Sodium Chloride 0.9% 1, 880 880 000 ml @ 110 mls/hr IV . Q9H6M [facility] Rx#:[id number] Intake, IV Titration 125.171 571.735 597.689 Amount EPINEPHrine 4 mg In 422.625 250 Dextrose 5% in Water 250 ml @ 0.01 MCG/KG/MIN 4.5 mls/hr IV .Q24H [facility] Rx#: [id number] EPINEPHrine 4 mg In 52.826 Dextrose 5% in Water 250 ml @ 0.01 MCG/KG/MIN 4. 914 mls/hr IV .Q24H [facility] Rx#:[id number] Norepinephrine 32 mg In 47.689 Sodium Chloride 0.9% 218 ml @ 0.05 MCG/KG/MIN 2. 822 mls/hr IV .Q24H [facility] Rx#:[id number] propofoL 1,000 mg In 72.345 149.110 300.000 Empty Bag 1 bag @ 5 MCG/ KG/MIN 3.9 mls/hr IV . Q24H [facility] Rx#:[id number] Output: Urine 0 Other: Voiding Method Indwelling Catheter Indwelling Catheter Indwelling Catheter Weight 120 kg 120.4 kg ABP, PAP, CO, CI - Last 8 Hours Arterial Blood Pressure 102/56 Arterial Blood Pressure 96/55 Arterial Blood Pressure 99/55 Arterial Blood Pressure 109/62 Arterial Blood Pressure 109/62 Arterial Blood Pressure 113/64 Arterial Blood Pressure 100/56 Arterial Blood Pressure 109/56 Arterial Blood Pressure 97/54 Arterial Blood Pressure 127/58 Arterial Blood Pressure 122/57 Arterial Blood Pressure 110/57 Arterial Blood Pressure 115/58 Arterial Blood Pressure 108/56 Arterial Blood Pressure 116/56 Arterial Blood Pressure 100/58 Arterial Blood Pressure 113/52 Arterial Blood Pressure 109/54 Arterial Blood Pressure 105/56 Arterial Blood Pressure 104/54 Physical Exam: Revealed a 45-year-old female, obese, intubated and mechanically ventilated. Head: Atraumatic, normocephalic. HEENT:[Neck is supple.] [No neck masses.] [No thyromegaly.] [No JVD.] PERRLA, EOMI, nonicteric. Chest: Symmetrical chest expansion, diminished breath sounds at the bases no rhonchi no wheezes Cardiac Exam: Regular rhythm, 2/6 systolic murmur thought the precordium. Abdomen: [Obese, Soft, nontender, no megaly, no rebound, no guarding, normal bowel sounds.] Extremities: [No clubbing, no edema, no cyanosis.] Neurological Exam: Patient is sedated, on propofol, could not assess her neurologically. Not arousable to any stimuli psychiatric: Could not assess, patient is sedated. Results - Laboratory Findings CBC and BMP: 08/13/21 06:09 08/13/21 04:19 ABG ABG pH 7.17 (7.35-7.45) L* 08/13/21 10:40 ABG pCO2 26 mmHg (35-45) L 08/13/21 10:40 ABG pO2 124 mmHg (83-108) H 08/13/21 10:40 ABG O2 Saturation 98.1 % (94-97) H 08/13/21 10:40 PT/INR, D-dimer PT 12.1 sec (9.0-12.0) H 08/12/21 17:04 INR 1.1 (<1.2) 08/12/21 17:04 D-Dimer 1.17 mg/L FEU (<0.60) H 08/12/21 17:04 Abnormal lab findings: Abnormal Labs 08/12/21 08/12/21 08/12/21 16:57 17:04 17:04 WBC 11.0 H Plt Count 136 L Neutrophils # (Manual) Lymphocytes # (Manual) Monocytes # (Manual) Metamyelocytes # (Man) Nucleated RBCs PT 12.1 H APTT 19.8 L D-Dimer 1.17 H ABG pH ABG pCO2 ABG pO2 ABG HCO3 ABG Total CO2 ABG O2 Saturation Carbon Dioxide BUN Creatinine Glucose POC Glucose (mg/dL) 246 H Plasma Lactic Acid Raji Calcium Phosphorus AST 08/12/21 08/12/21 08/12/21 17:04 17:04 17:46 WBC Plt Count Neutrophils # (Manual) Lymphocytes # (Manual) Monocytes # (Manual) Metamyelocytes # (Man) Nucleated RBCs PT APTT D-Dimer ABG pH 7.16 L* ABG pCO2 ABG pO2 376 H ABG HCO3 15 L ABG Total CO2 17 L ABG O2 Saturation 100.0 H Carbon Dioxide BUN Creatinine Glucose 243 H POC Glucose (mg/dL) Plasma Lactic Acid Raji 8.1 H* Calcium 10.3 H Phosphorus AST 37 H 08/12/21 08/12/21 08/13/21 21:58 22:39 00:01 WBC Plt Count Neutrophils # (Manual) Lymphocytes # (Manual) Monocytes # (Manual) Metamyelocytes # (Man) Nucleated RBCs PT APTT D-Dimer ABG pH 7.03 L* ABG pCO2 54 H ABG pO2 ABG HCO3 14 L ABG Total CO2 16 L ABG O2 Saturation 93.6 L Carbon Dioxide BUN Creatinine Glucose POC Glucose (mg/dL) 425 H Plasma Lactic Acid Raji 13.4 H* Calcium Phosphorus AST 08/13/21 08/13/21 08/13/21 00:03 00:40 03:04 WBC Plt Count Neutrophils # (Manual) Lymphocytes # (Manual) Monocytes # (Manual) Metamyelocytes # (Man) Nucleated RBCs PT APTT D-Dimer ABG pH 7.19 L* ABG pCO2 ABG pO2 ABG HCO3 15 L ABG Total CO2 16 L ABG O2 Saturation 97.6 H Carbon Dioxide BUN Creatinine Glucose POC Glucose (mg/dL) 264 H Plasma Lactic Acid Raji 17.4 H* Calcium Phosphorus AST 08/13/21 08/13/21 08/13/21 04:19 05:49 05:52 WBC Plt Count Neutrophils # (Manual) Lymphocytes # (Manual) Monocytes # (Manual) Metamyelocytes # (Man) Nucleated RBCs PT APTT D-Dimer ABG pH 7.11 L* ABG pCO2 32 L ABG pO2 118 H ABG HCO3 10 L* ABG Total CO2 11 L ABG O2 Saturation 97.4 H Carbon Dioxide 10 L BUN 22 H Creatinine 2.59 H Glucose 304 H POC Glucose (mg/dL) 312 H Plasma Lactic Acid Raji Calcium 7.8 L Phosphorus 10.1 H* AST 08/13/21 08/13/21 08/13/21 06:09 06:09 08:46 WBC 27.8 H Plt Count Neutrophils # (Manual) 25.80 H Lymphocytes # (Manual) 0.83 L Monocytes # (Manual) 1.39 H Metamyelocytes # (Man) 0.28 H Nucleated RBCs 1 H PT APTT D-Dimer ABG pH ABG pCO2 ABG pO2 ABG HCO3 ABG Total CO2 ABG O2 Saturation Carbon Dioxide BUN Creatinine Glucose POC Glucose (mg/dL) Plasma Lactic Acid Raji 19.1 H* 21.0 H* Calcium Phosphorus AST 08/13/21 08/13/21 10:40 12:44 WBC Plt Count Neutrophils # (Manual) Lymphocytes # (Manual) Monocytes # (Manual) Metamyelocytes # (Man) Nucleated RBCs PT APTT D-Dimer ABG pH 7.17 L* ABG pCO2 26 L ABG pO2 124 H ABG HCO3 10 L* ABG Total CO2 10 L ABG O2 Saturation 98.1 H Carbon Dioxide BUN Creatinine Glucose POC Glucose (mg/dL) 381 H Plasma Lactic Acid Raji Calcium Phosphorus AST - Diagnostic Findings Chest x-ray: image reviewed (As noted in HPI.) Assessment and Plan Assessment: Impression: Acute hypoxic respiratory failure secondary to cardiac arrest with ventricular fibrillation arrest, status post defibrillation and CPR in the field, down 15-20 minutes. Suspect anoxic brain injury Severe lactic acidosis Possible septic shock considering the patient had recent bacteremia and she was already on antibiotics. Cardiac sarcoidosis. Paroxysmal atrial fibrillation. Benign essential hypertension. Type 2 diabetes. Acute kidney injury secondary to cardiac arrest, acute tubular necrosis. History of recent MRSA bacteremia and AICD vegetations Nonischemic cardiomyopathy and previous Severe lactic acidosis secondary to poor hypoperfusion and prolonged downtime. Recommendation: Continue ventilatory support Continue hemodynamic support patient is on epinephrine and I will transition to norepinephrine Continue GI and DVT prophylaxis Nutritional support/enteral feeding Neurology to see her on consultation for presumptive anoxic brain injury Continue bicarb drip and adjust accordingly, based on pH. Nephrology to evaluate for acute kidney injury No major changes made in the vent settings today except increase the flow rate to adjust her I:E ratio Prognosis is extremely poor and guarded Patient is critically ill. Time with Patient: Greater than 30
--- NOTE | 2021-08-13 17:35 | P.PN ---
Progress Note - Text Progress Note Date: 08/13/21 I spent 20 minutes of [id number] time discussing advance care planning with patient's family members who were at bedside including her mother and her in light of patient's serious medical conditions including ventilator dependent respiratory failure, anuric kidney failure, severe cardiomyopathy, and anoxic brain injury following cardiac arrest. In our discussion, I highlighted that the patient's 's role in her care at this point is to provide support as well as to provide surrogate decision making in which he relays his best educated guess as to what the patient's wishes for herself would be in light of her critical situation. Specifically, our discussion led to how patient would be unlikely to want to be resuscitated if she were to lose her pulse again given her critical situation likely anoxic brain injury after 20 minutes of downtime. Therefore, patient was switched to DO NOT RESUSCITATE from full code. We further lead to groundwork for patient's prognosis, which is extremely poor in light of her critical status. I explained that if there is no improvement in the next 24-48 hours, there needs to be some thought put into how the patient would likely make a decision regarding her own care in a situation which she would need dialysis or further aggressive treatment, especially given the low likelihood of recovery to baseline. Patient's family would like some time to consider this, but there are initial Lien is that patient would not want to be kept left lung on a ventilator, and may have had a prior biased towards not wanting to carry on living through the brain injury that is extremely debilitating. However, they would like some more time to discuss the situation prior to making any decisions regarding whether or not they would be favorable towards hospice, or rather, whether the patient will be favorable towards hospice in her situation.
[2021-08-13 18:29] LABS: Glucose,Whole Blood 278 mg/dL (70-110)
[2021-08-13] MEDS ORDERED: DAPTOmycin 500 MG in SODIUM CHLORIDE 0.9% 50 ML IVPB SCH (18:30)
[2021-08-13 19:32] LABS: Calcium 6.8 mg/dL (8.4-10.2); Potassium 4.1 mmol/L (3.5-5.1)
[2021-08-13 22:16] LABS: Alkaline Phosphatase 124 U/L (38-126)
[2021-08-13] MEDS: levETIRAcetam IV 500 MG in SODIUM CHLORIDE 0.9% 100 ML IVPB SCH (22:20)
[2021-08-13 22:40] LABS: ALT 6190 U/L (4-34)
[2021-08-13 22:47] LABS: AST >15000 U/L (14-36)
[2021-08-13] MEDS ORDERED: SODIUM CHLORIDE 0.9% 500 ML 500 ML IV ONE (23:00)
--- NOTE | 2021-08-13 23:14 | P.CONS ---
History of Present Illness - Reason for Consult Consult date: 08/13/21 Fever and leukocytosis Requesting physician: Ana Bardales - Chief Complaint Cardiac arrest at home x one day - History of Present Illness Patient is a 45-year-old female with multiple comorbidities including sarcoidosis nonischemic cardiomyopathy type 2 diabetes mellitus hypertension hyperlipidemia, patient did have a recent diagnosis of MRSA bacteremia secondary to AICD lead infection which was subsequently removed patient did get her bacteremia did get a PICC line and was discharged home on IV vancomycin pharmacy to dose which the patient was currently receiving at home, the patient was brought into the ER last night after apparently patient did have a cardiac arrest at home patient apparently was attempting significant" when she is already lost consciousness patient downtime was 5 minutes prior to EMS arrival and the patient was in asystole subsequently V. fib for the patient did underwent defibrillation patient did have return of spontaneous circulation however in the ER the patient become pulseless once again and requiring several minutes of CPR patient got intubated and subsequently was admitted to the ICU currently on pressor support no significant purulent secretion through the ET reported by the nursing staff patient was started on vancomycin and syn infectious disease was consulted for further management of antibiotic therapy patient was initially afebrile subsequently spiked a fever of 101.7 F patient currently on 60% FiO2 patient did have white count of 11,000 admission up to 27.8 with a left shift patient also have an elevated BUN and creatinine and elevated lactic acid as well as liver enzymes blood and sputum culture admitted which are currently pending, chest x-ray did shows congestive heart failure with right lower lobe pneumonia slightly worse than recent exam most information has been obtained from review the chart talking nursing staff the patient is currently intubated on the vent and could not provide any history Review of Systems Positive points has been mentioned in HPI complete review could not be obtained because intubated on the vent ROS unobtainable: due to endotracheal tube Past Medical History Past Medical History: Atrial Fibrillation, Heart Failure, Diabetes Mellitus, GI Bleed, Hyperlipidemia, Hypertension, Myocardial Infarction (DE), Musculoskeletal Disorder, Pneumonia, Skin Disorder, Sleep Apnea/CPAP/BIPAP, Thyroid Disorder Additional Past Medical History / Comment(s): "Have had 6 months of walking Pneumonia". Hx steroid induced gluacoma(resolved). Neurosarcoidosis, sarcoidosis which caused heart problems. Eczema. Hx Reading Palsy with right facial droop. Hx concussion at age 12, has some learning disablity-problems with spelling. MS. Graves Disease, " 7 auto immune diseases". DDD. CPAP use. "Weakness all over". Diarrhea and occasional blood in stool. "27 lesions on her brain". "INTERMITTENT GI BLEED" AND PROBLEMS SWALLOWING. pacemaker placement 07/21/2021 Last Myocardial Infarction Date:: 11/15/20 History of Any Multi-Drug Resistant Organisms: MRSA Year Discovered:: 07/19/21 MDRO Source:: MRSA BLOOD Past Surgical History: AICD, Cholecystectomy, Heart Catheterization Additional Past Surgical History / Comment(s): VENOGRAM W/CINEFLUROSCOPY. Past Anesthesia/Blood Transfusion Reactions: No Reported Reaction Additional Past Anesthesia/Blood Transfusion Reaction / Comm: Claustrophobia. Type of Cardiac Device: Permanent Pacemaker, AICD Device Placement Date:: 03/01 Past Psychological History: ADD/ADHD, Anxiety, Depression Additional Psychological History / Comment(s): Hx panic attacks. Claustrophobia. Smoking Status: Never smoker Past Alcohol Use History: None Reported Past Drug Use History: None Reported - Past Family History Mother Family Medical History: AFIB, Deep Vein Thrombosis (DVT) Father Family Medical History: Osteoarthritis (OA), Thyroid Disorder Medications and Allergies Home Medications Medication Instructions Recorded Confirmed Type metFORMIN HCL [Glucophage] 1,000 mg PO BID-W/MEALS 11/10/17 08/12/21 History Ezetimibe [Zetia] 10 mg PO DAILY 10/06/18 08/12/21 History Apixaban [Eliquis] 5 mg PO BID #180 tab 02/15/19 08/12/21 Rx PARoxetine HCL 30 mg PO DAILY 06/23/19 08/12/21 History Artificial Tears-Hypromellose 1 drop BOTH EYES TID PRN 11/13/20 08/12/21 History [Artificial Tear Drops] Albuterol Inhaler [Ventolin Hfa 2 puff INHALATION RT-Q4H PRN 06/26/21 08/12/21 History Inhaler] Acetaminophen [Tylenol] 1,000 mg PO Q4-6H PRN 07/01/21 08/12/21 History Latanoprost/Pf [Latanoprost 0.005% 1 drop RIGHT EYE HS 07/01/21 08/12/21 History Eye Drop] Levothyroxine Sodium [Synthroid] 175 mcg PO DAILY 07/01/21 08/12/21 History glipiZIDE [Glucotrol] 5 mg PO AC-BRKFST #30 tab 07/05/21 08/12/21 Rx guaiFENesin-Coden 100-10MG/5ML 10 ml PO TID PRN #1000 ml 07/05/21 08/12/21 Rx [Robitussin AC] HYDROcodone/APAP 5-325MG [[place] 1 tab PO Q6HR PRN 3 Days #12 tab 07/11/21 08/12/21 Rx 5-325] Fenofibrate [Lofibra] 160 mg PO DAILY 07/14/21 08/12/21 History Pantoprazole [Protonix] 40 mg PO AC-BID #60 tab 07/25/21 08/12/21 Rx Vancomycin 2,000 mg IVPB Q12HR each 07/25/21 08/12/21 Rx predniSONE 10 mg PO DAILY 07/30/21 08/12/21 History Furosemide [Lasix] 40 mg PO BID@0900,1600 #180 tab 08/01/21 08/12/21 Rx Metoprolol Succinate (ER) [Toprol 25 mg PO DAILY #90 tab 08/01/21 08/12/21 Rx XL] Allergies Allergy/AdvReac Type Severity Reaction Status Date / Time [id number] Reductase AdvReac FACIAL Verified 08/12/21 19:16 Inhibitor NUMBNESS [Psizwfd-Ehv-Yrt Reductase Inhibitor] SEAFOOD Allergy Rash/Hives Uncoded 07/30/21 17:18 Physical Exam Vitals: Vital Signs Temp Pulse Resp BP Pulse Ox FiO2 08/13/21 11:20 50 08/13/21 11:00 51 L 40 H 99 50 08/13/21 10:30 50 L 31 H 98 50 08/13/21 10:00 54 L 30 H 108/53 96 50 08/13/21 09:30 55 L 31 H 98 50 08/13/21 09:00 55 L 28 H 99 50 08/13/21 08:30 53 L 28 H 98 50 08/13/21 08:15 55 L 28 H 99 08/13/21 08:00 100.8 F H 53 L 31 H 96/53 99 50 08/13/21 07:45 54 L 28 H 98 50 08/13/21 07:30 53 L 29 H 98 50 08/13/21 07:15 53 L 29 H 96 08/13/21 07:00 53 L 29 H 98 50 08/13/21 06:45 52 L 29 H 99 08/13/21 06:30 52 L 29 H 91 L 50 08/13/21 06:15 52 L 29 H 97 08/13/21 06:00 52 L 29 H 98 50 08/13/21 05:45 52 L 29 H 99 08/13/21 05:30 51 L 29 H 98 50 08/13/21 05:15 53 L 29 H 99 08/13/21 05:00 100.7 F H 53 L 30 H 99 50 08/13/21 04:45 51 L 30 H 98 08/13/21 04:30 55 L 28 H 100 50 08/13/21 04:15 50 L 28 H 100 08/13/21 04:00 102.8 F H 49 L 28 H 100 50 08/13/21 03:45 54 L 28 H 99 08/13/21 03:30 50 L 8 L 100 50 08/13/21 03:26 50 08/13/21 03:15 49 L 28 H 100 08/13/21 03:00 52 L 28 H 99 50 08/13/21 02:45 53 L 28 H 99 50 08/13/21 02:30 49 L 28 H 98 50 08/13/21 02:15 56 L 28 H 96/61 98 08/13/21 02:00 51 L 28 H 97 50 08/13/21 01:45 51 L 29 H 98 08/13/21 01:30 58 L 30 H 96 50 08/13/21 01:15 57 L 30 H 97 08/13/21 01:00 55 L 28 H 97 50 08/13/21 00:45 54 L 28 H 96 08/13/21 00:30 55 L 29 H 81/54 97 50 08/13/21 00:15 52 L 28 H 97 08/13/21 00:00 98.2 F 54 L 29 H 97/58 97 50 08/12/21 23:53 65 28 H 96 08/12/21 23:45 52 L 28 H 97 50 08/12/21 23:30 57 L 28 H 96 50 08/12/21 23:27 56 L 28 H 92 L 50 07/04/22 23:23 50 08/12/21 22:45 50 08/12/21 21:15 65 18 143/91 99 08/12/21 20:27 62 18 98/70 98 08/12/21 20:00 65 16 102/78 99 08/12/21 19:48 50 08/12/21 19:23 98.0 F 64 16 104/69 97 08/12/21 19:05 80 18 116/78 98 08/12/21 18:39 68 16 141/76 98 08/12/21 17:53 82 16 141/82 100 08/12/21 17:32 100 08/12/21 17:22 69 16 131/99 08/12/21 17:21 100 08/12/21 17:14 80 18 125/106 08/12/21 17:00 75 18 125/108 100 Intake and Output 08/12/21 08/13/21 08/13/21 22:59 06:59 14:59 Intake Total 359.875 9623.735 1553.104 Output Total 0 Balance 046.602 5044.735 1553.104 Intake: IV 1080 1100 Dextrose 5% in Water 1, 200 550 000 ml @ 150 mls/hr IV . Q7H40M [facility] with Sodium Bicarb (1 Meq/ml) 150 ml Rx#:[id number] Sodium Chloride 0.9% 1, 880 550 000 ml @ 110 mls/hr IV . Q9H6M [facility] Rx#:[id number] Intake, IV Titration 125.171 571.735 453.104 Amount EPINEPHrine 4 mg In 422.625 250 Dextrose 5% in Water 250 ml @ 0.01 MCG/KG/MIN 4.5 mls/hr IV .Q24H [facility] Rx#: [id number] EPINEPHrine 4 mg In 52.826 Dextrose 5% in Water 250 ml @ 0.01 MCG/KG/MIN 4. 914 mls/hr IV .Q24H [facility] Rx#:[id number] Norepinephrine 32 mg In 3.104 Sodium Chloride 0.9% 218 ml @ 0.05 MCG/KG/MIN 2. 822 mls/hr IV .Q24H [facility] Rx#:[id number] propofoL 1,000 mg In 72.345 149.110 200.000 Empty Bag 1 bag @ 5 MCG/ KG/MIN 3.9 mls/hr IV . Q24H [facility] Rx#:[id number] Output: Urine 0 Other: Voiding Method Indwelling Catheter Indwelling Catheter Indwelling Catheter Weight 120 kg 120.4 kg ABP, PAP, CO, CI - Last 8 Hours Arterial Blood Pressure 100/56 Arterial Blood Pressure 109/56 Arterial Blood Pressure 97/54 Arterial Blood Pressure 127/58 Arterial Blood Pressure 122/57 Arterial Blood Pressure 110/57 Arterial Blood Pressure 115/58 Arterial Blood Pressure 108/56 Arterial Blood Pressure 116/56 Arterial Blood Pressure 100/58 Arterial Blood Pressure 113/52 Arterial Blood Pressure 109/54 Arterial Blood Pressure 105/56 Arterial Blood Pressure 104/54 Arterial Blood Pressure 114/51 Arterial Blood Pressure 98/53 Arterial Blood Pressure 110/52 Arterial Blood Pressure 108/52 Arterial Blood Pressure 108/53 Arterial Blood Pressure 110/54 Arterial Blood Pressure 93/53 Arterial Blood Pressure 95/56 Arterial Blood Pressure 92/52 GENERAL DESCRIPTION: Middle-aged female intubated on the vent, HEENT: Shows Pallor , no scleral icterus. Oral mucous membrane is dry. No pharyngeal erythema or thrush NECK: Trachea central, no thyromegaly. LUNGS: Unlabored breathing. Decreased breath sound the bases. No wheeze or crackle. HEART: S1, S2, regular rate and rhythm. No loud murmur ABDOMEN: Soft, no tenderness , guarding or rigidity, no organomegaly EXTREMITIES: No edema of feet. SKIN: No rash, no masses palpable. NEUROLOGICAL: The patient is sedated on the ventilator Results CBC & Chem 7: 08/15/21 04:15 08/15/21 04:15 Labs: Abnormal Lab Results - Last 24 Hours (Table) 08/12/21 08/12/21 08/12/21 Range/Units 16:57 17:04 17:04 WBC 11.0 H (3.8-10.6) k/uL Plt Count 136 L (150-450) k/uL Neutrophils # (Manual) (1.3-7.7) k/uL Lymphocytes # (Manual) (1.0-4.8) k/uL Monocytes # (Manual) (0-1.0) k/uL Metamyelocytes # (Man) (0) k/uL Nucleated RBCs (0-0) /100 WBC PT 12.1 H (9.0-12.0) sec APTT 19.8 L (22.0-30.0) sec D-Dimer 1.17 H (<0.60) mg/L FEU ABG pH (7.35-7.45) ABG pCO2 (35-45) mmHg ABG pO2 (83-108) mmHg ABG HCO3 (21-25) mmol/L ABG Total CO2 (19-24) mmol/L ABG O2 Saturation (94-97) % Carbon Dioxide (22-30) mmol/L BUN (7-17) mg/dL Creatinine (0.52-1.04) mg/dL Glucose (74-99) mg/dL POC Glucose (mg/dL) 246 H (70-110) mg/dL Plasma Lactic Acid Raji (0.7-2.0) mmol/L Calcium (8.4-10.2) mg/dL Phosphorus (2.5-4.5) mg/dL AST (14-36) U/L 08/12/21 08/12/21 08/12/21 Range/Units 17:04 17:04 17:46 WBC (3.8-10.6) k/uL Plt Count (150-450) k/uL Neutrophils # (Manual) (1.3-7.7) k/uL Lymphocytes # (Manual) (1.0-4.8) k/uL Monocytes # (Manual) (0-1.0) k/uL Metamyelocytes # (Man) (0) k/uL Nucleated RBCs (0-0) /100 WBC PT (9.0-12.0) sec APTT (22.0-30.0) sec D-Dimer (<0.60) mg/L FEU ABG pH 7.16 L* (7.35-7.45) ABG pCO2 (35-45) mmHg ABG pO2 376 H (83-108) mmHg ABG HCO3 15 L (21-25) mmol/L ABG Total CO2 17 L (19-24) mmol/L ABG O2 Saturation 100.0 H (94-97) % Carbon Dioxide (22-30) mmol/L BUN (7-17) mg/dL Creatinine (0.52-1.04) mg/dL Glucose 243 H (74-99) mg/dL POC Glucose (mg/dL) (70-110) mg/dL Plasma Lactic Acid Raji 8.1 H* (0.7-2.0) mmol/L Calcium 10.3 H (8.4-10.2) mg/dL Phosphorus (2.5-4.5) mg/dL AST 37 H (14-36) U/L 08/12/21 08/12/21 08/13/21 Range/Units 21:58 22:39 00:01 WBC (3.8-10.6) k/uL Plt Count (150-450) k/uL Neutrophils # (Manual) (1.3-7.7) k/uL Lymphocytes # (Manual) (1.0-4.8) k/uL Monocytes # (Manual) (0-1.0) k/uL Metamyelocytes # (Man) (0) k/uL Nucleated RBCs (0-0) /100 WBC PT (9.0-12.0) sec APTT (22.0-30.0) sec D-Dimer (<0.60) mg/L FEU ABG pH 7.03 L* (7.35-7.45) ABG pCO2 54 H (35-45) mmHg ABG pO2 (83-108) mmHg ABG HCO3 14 L (21-25) mmol/L ABG Total CO2 16 L (19-24) mmol/L ABG O2 Saturation 93.6 L (94-97) % Carbon Dioxide (22-30) mmol/L BUN (7-17) mg/dL Creatinine (0.52-1.04) mg/dL Glucose (74-99) mg/dL POC Glucose (mg/dL) 425 H (70-110) mg/dL Plasma Lactic Acid Raji 13.4 H* (0.7-2.0) mmol/L Calcium (8.4-10.2) mg/dL Phosphorus (2.5-4.5) mg/dL AST (14-36) U/L 08/13/21 08/13/21 08/13/21 Range/Units 00:03 00:40 03:04 WBC (3.8-10.6) k/uL Plt Count (150-450) k/uL Neutrophils # (Manual) (1.3-7.7) k/uL Lymphocytes # (Manual) (1.0-4.8) k/uL Monocytes # (Manual) (0-1.0) k/uL Metamyelocytes # (Man) (0) k/uL Nucleated RBCs (0-0) /100 WBC PT (9.0-12.0) sec APTT (22.0-30.0) sec D-Dimer (<0.60) mg/L FEU ABG pH 7.19 L* (7.35-7.45) ABG pCO2 (35-45) mmHg ABG pO2 (83-108) mmHg ABG HCO3 15 L (21-25) mmol/L ABG Total CO2 16 L (19-24) mmol/L ABG O2 Saturation 97.6 H (94-97) % Carbon Dioxide (22-30) mmol/L BUN (7-17) mg/dL Creatinine (0.52-1.04) mg/dL Glucose (74-99) mg/dL POC Glucose (mg/dL) 264 H (70-110) mg/dL Plasma Lactic Acid Raji 17.4 H* (0.7-2.0) mmol/L Calcium (8.4-10.2) mg/dL Phosphorus (2.5-4.5) mg/dL AST (14-36) U/L 08/13/21 08/13/21 08/13/21 Range/Units 04:19 05:49 05:52 WBC (3.8-10.6) k/uL Plt Count (150-450) k/uL Neutrophils # (Manual) (1.3-7.7) k/uL Lymphocytes # (Manual) (1.0-4.8) k/uL Monocytes # (Manual) (0-1.0) k/uL Metamyelocytes # (Man) (0) k/uL Nucleated RBCs (0-0) /100 WBC PT (9.0-12.0) sec APTT (22.0-30.0) sec D-Dimer (<0.60) mg/L FEU ABG pH 7.11 L* (7.35-7.45) ABG pCO2 32 L (35-45) mmHg ABG pO2 118 H (83-108) mmHg ABG HCO3 10 L* (21-25) mmol/L ABG Total CO2 11 L (19-24) mmol/L ABG O2 Saturation 97.4 H (94-97) % Carbon Dioxide 10 L (22-30) mmol/L BUN 22 H (7-17) mg/dL Creatinine 2.59 H (0.52-1.04) mg/dL Glucose 304 H (74-99) mg/dL POC Glucose (mg/dL) 312 H (70-110) mg/dL Plasma Lactic Acid Raji (0.7-2.0) mmol/L Calcium 7.8 L (8.4-10.2) mg/dL Phosphorus 10.1 H* (2.5-4.5) mg/dL AST (14-36) U/L 08/13/21 08/13/21 08/13/21 Range/Units 06:09 06:09 08:46 WBC 27.8 H (3.8-10.6) k/uL Plt Count (150-450) k/uL Neutrophils # (Manual) 25.80 H (1.3-7.7) k/uL Lymphocytes # (Manual) 0.83 L (1.0-4.8) k/uL Monocytes # (Manual) 1.39 H (0-1.0) k/uL Metamyelocytes # (Man) 0.28 H (0) k/uL Nucleated RBCs 1 H (0-0) /100 WBC PT (9.0-12.0) sec APTT (22.0-30.0) sec D-Dimer (<0.60) mg/L FEU ABG pH (7.35-7.45) ABG pCO2 (35-45) mmHg ABG pO2 (83-108) mmHg ABG HCO3 (21-25) mmol/L ABG Total CO2 (19-24) mmol/L ABG O2 Saturation (94-97) % Carbon Dioxide (22-30) mmol/L BUN (7-17) mg/dL Creatinine (0.52-1.04) mg/dL Glucose (74-99) mg/dL POC Glucose (mg/dL) (70-110) mg/dL Plasma Lactic Acid Raji 19.1 H* 21.0 H* (0.7-2.0) mmol/L Calcium (8.4-10.2) mg/dL Phosphorus (2.5-4.5) mg/dL AST (14-36) U/L 08/13/21 Range/Units 10:40 WBC (3.8-10.6) k/uL Plt Count (150-450) k/uL Neutrophils # (Manual) (1.3-7.7) k/uL Lymphocytes # (Manual) (1.0-4.8) k/uL Monocytes # (Manual) (0-1.0) k/uL Metamyelocytes # (Man) (0) k/uL Nucleated RBCs (0-0) /100 WBC PT (9.0-12.0) sec APTT (22.0-30.0) sec D-Dimer (<0.60) mg/L FEU ABG pH 7.17 L* (7.35-7.45) ABG pCO2 26 L (35-45) mmHg ABG pO2 124 H (83-108) mmHg ABG HCO3 10 L* (21-25) mmol/L ABG Total CO2 10 L (19-24) mmol/L ABG O2 Saturation 98.1 H (94-97) % Carbon Dioxide (22-30) mmol/L BUN (7-17) mg/dL Creatinine (0.52-1.04) mg/dL Glucose (74-99) mg/dL POC Glucose (mg/dL) (70-110) mg/dL Plasma Lactic Acid Raji (0.7-2.0) mmol/L Calcium (8.4-10.2) mg/dL Phosphorus (2.5-4.5) mg/dL AST (14-36) U/L Microbiology - Last 24 Hours (Table) 08/12/21 22:02 Sputum Culture - Preliminary Sputum Assessment and Plan (1) Infection of pacemaker lead wire Status: Acute Code(s): T82.7XXA - INFECT/INFLM REACT D/T OTH CARDI/VASC DEV/IMPLNT/GRFT, INIT SNOMED Code(s): 467022437 Plan: 1patient with acute respiratory failure this patient who did have a cardiac arrest at home with significant ongoing and repeat cardiac arrest in the ER now with evidence of fever elevated white count likely combination of possible aspiration pneumonia this patient was currently undergoing treatment for AICD lead infection secondary to MRSA. 2patient with a worsening kidney function high risk of nephrotoxicity from vancomycin. 3patient to continue with Zosyn for possible aspiration pneumonia however discontinue vancomycin. 4we will start the patient on daptomycin 6 mg/kg. 5blood and sputum cultures will be followed. We will follow on clinical condition and cultures to further adjust medication if needed Thank you for this consultation will follow this patient along with you Time with Patient: Greater than 30
[2021-08-13 23:59] LABS: Glucose,Whole Blood 200 mg/dL (70-110)
[2021-08-14] MEDS: INSULIN ASPART (NovoLOG) 100 UNIT/ML VIAL SQ SCH ×4 (00:18→18:12)
[2021-08-14 01:25] LABS: Calcium 6.7 mg/dL (8.4-10.2); Potassium 3.7 mmol/L (3.5-5.1)
[2021-08-14 01:30] LABS: Vancomycin,Random 32.5 ug/mL
[2021-08-14] MEDS: NOREPINEPHRINE 32 MG in SODIUM CHLORIDE 0.9% 218 ML IV SCH ×2 (01:46→08:58)
[2021-08-14 02:16] LABS: Basophils # (A) 0.1 k/uL (0-0.2); Basophils % (A) 0 %; Eosinophils % (A) 0 %; HGB 13.8 gm/dL (11.4-16.0); Hypochromasia Slight; Lymphocytes # (A) 1.1 k/uL (1.0-4.8); Lymphocytes % (A) 6 %; MCH 30.3 pg (25.0-35.0); MCHC 33.7 g/dL (31.0-37.0); MCV 89.9 fL (80.0-100.0); Mean Platelet Volume 10.4; Monocytes # (A) 0.7 k/uL (0-1.0); Monocytes % (A) 4 %; Neutrophils # (A) 16.6 k/uL (1.3-7.7); Neutrophils % (A) 89 %; Platelet Count 115 k/uL (150-450); Poikilocytosis Slight; RBC 4.57 m/uL (3.80-5.40); RDW 15.9 % (11.5-15.5); WBC 18.7 k/uL (3.8-10.6)
[2021-08-14] MEDS: DEXTROSE 5% IN WATER 1,000 ML with SODIUM BICARB (1 MEQ/ML) 150 ML IV SCH (05:19)
[2021-08-14 05:47] LABS: Glucose,Whole Blood 211 mg/dL (70-110)
[2021-08-14 05:59] LABS: ABG Base Excess -7.1 mmol/L; ABG HCO3 18 mmol/L (21-25); ABG Oxygen Saturation 94.1 % (94-97); ABG PCO2 33 mmHg (35-45); ABG PH 7.36 (7.35-7.45); ABG PO2 76 mmHg (83-108); ABG TCO2 19 mmol/L (19-24); Allen Test Performed? Yes
[2021-08-14] MEDS ORDERED: VANCOMYCIN 2,500 MG in SODIUM CHLORIDE 0.9% 500 ML 500 ML IVPB SCH (06:00)
--- NOTE | 2021-08-14 08:16 | XR ---
EXAMINATION TYPE: XR chest 1V portable DATE OF EXAM: 08/14/2021 5:51 AM COMPARISON: Chest radiographs from 08/13/2021 TECHNIQUE: XR chest 1V portable Portable AP radiograph of the chest. CLINICAL INDICATION:Female, 45 years old with history of Tube placement; FINDINGS: Lungs/Pleura: Bibasilar airspace opacities. No evidence pneumothorax pleural effusion. Pulmonary vascularity: Unremarkable. Heart/mediastinum: Cardiomediastinal silhouette is enlarged and stable. Two lead cardiac conduction d evice overlying the right hemithorax with lead tips projecting over the right ventricle and right atr ium. Musculoskeletal: No acute osseous pathology. Lines/Tubes: Endotracheal tube with distal tip 6.9 cm above the jatinder Nasogastric tube with its distal tip and side-port projecting under the diaphragm. Right-sided PICC line with distal tip at the brachiocephalic/subclavian confluence. IMPRESSION: 1. Right basilar airspace opacities concerning for pneumonia. 2. Right PICC with tip at the brachiocephalic/subclavian confluence
--- NOTE | 2021-08-14 08:20 | P.PN ---
Subjective This is a 45 year old female with a past medical history significant for non- ischemic cardiomyopathy with AICD implantation, paroxysmal atrial fibrillation on anticoagulation with Eliquis, diabetes, hypertension, hyperlipidemia, multiple sclerosis, and cardiac sarcoidosis, recent admission to the hospital 07/14-07/26/2021 for MRSA bacteremia with lead vegetation. Patient follows in the office with Dr. Hinojosa. Patient was recently hospitalized from 07/14- 07/26/2021 for sepsis, she was found to have MRSA bacteremia, TEODORO revealed atrial lead vegetation. On 07/21/2021 Patient underwent extraction of the right atrial lead, LV lead and RV ICD lead. She then had implantation of a new RV pacing lead in the RV apex, and Implantation of single-chamber pacemaker generator in the pocket. She was discharged home with a PICC line for 6 week course of an tibiotics. Family intubated and sedated and history of supply the chart. Per patient's apparently they were getting ready to have sexual intercourse and has been found patient to be unresponsive. EMS was called and patient was having shallow respirations with low oxygen saturation and weak pulses. Patient decompensated to cardiac arrest and CPR was performed and apparently found to be in V. fib and cardioverted. She remained apneic and unresponsive and difficulty removing patient from the house secondary to hoarding. On removing patient from house she was noted to have an additional cardiac arrest which may have resulted from inability to bag patient and apparently improved with airway placement. EKG shows intermittent ventricular pacing, sinus rhythm with what appears to be intermittent idioventricular rhythm. Creatinine initially 1.0 however elevated at 2.59 us morning, severe lactic acidosis up to 19 this morning, metabolic acidosis by ABG, blood cell count 27.8, and having intermittent fevers up to 102.8. Patient intubated with 50% FiO2 and 5 of PEEP and is on Epinephrine drip. DIAGNOSTICS * Most recent echocardiogram TEODORO- 07/19/2021 #1. Mobile lesion noted on the probably atrial lead, suggestive of vegetation #2. 3+ mitral regurgitation #3. Severe global left ventricular dysfunction. #4. Left atrial enlargement. #5. No clot in the left atrial appendage. #6. No evidence of PFO * 2D Echocardiogram 06/2021 revealed EF of 3540%, dilated LV, inferiorbasal akinesis * Patient underwent cardiac catheterization in November 2020 revealing normal coronary arteries * 08/14 Patient seen and examined. Patient remains intubated and sedated. Change from epinephrine drip to norepinephrine and currently blood pressure in the 100s over 50s. Unfortunately liver enzymes continue to be increased from yesterday, this morning pending. Patient not making much of any urine with creatinine going up to 4.3. Discussed with at bedside. Apparently patient had fairly acute onset of loss of consciousness concerning for cardiac source of initial cardiac arrest. Currently remains intermittently ventricular paced. Suspicion of possible aspiration pneumonitis. PHYSICAL EXAM: VITAL SIGNS: Reviewed. GENERAL: Well-developed, obese, intubated and sedated. HEENT: Head is normocephalic. Pupils are equal, round. Sclerae anicteric. Mucous membranes of the mouth are moist. Neck supple. No JVD LUNGS: Respirations even and unlabored. Lungs diminished in the bases. HEART: Regular rate and rhythm. S1 and S2 heard. Systolic murmur at apex ABDOMEN: Soft. Nondistended. Nontender. EXTREMITIES: Normal range of motion. No clubbing or cyanosis. Peripheral pulses intact. No lower extremity edema NEUROLOGIC: Intubated and sedated ASSESSMENT: Cardiac arrest with V. fib arrest status post defibrillation in the field Prolonged downtime and severe lactic acidosis Shock, questionable component of septic shock with fevers and increased white blood cell count, questionable aspiration pneumonia Chronic heart failure with reduced ejection fraction Recent admission for MRSA bacteremia, AICD vegetation Status post extraction of the right atrial lead, extraction of the LV lead, extraction of the RV ICD lead, and implantation of a new RV pacing lead in the RV apex, using the right atrial lead as an access and implantation of single- chamber pacemaker generator in the pocket on 07/21/2021 Nonischemic cardiomyopathy with previous AICD Paroxysmal atrial fibrillation on anticoagulation with Eliquis Cardiac sarcoidosis Hypertension Hyperlipidemia Diabetes mellitus, type 2 PLAN: Interrogate pacemaker from completing the sake however did have documented V. fib from second round of CPR. Check 2-D echo. Unfortunately patient appears to be worsening liver function and kidney function. Patient in multiorgan failure and prognosis grave. Continue with supportive care. Monitor neurologic function. Objective - Vital Signs Vital signs: Vital Signs Temp 99.5 F 08/14/21 08:00 Pulse 53 L 08/14/21 08:00 Resp 30 H 08/14/21 08:00 BP 108/53 08/13/21 10:00 Pulse Ox 95 08/14/21 08:00 FiO2 60 08/14/21 07:18 Intake & Output 08/13/21 08/14/21 08/14/21 18:59 06:59 18:59 Intake Total 3469.224 2550.937 330 Output Total 0 60 0 Balance 3469.224 2490.937 330 Weight 134.4 kg Intake: IV 2540 1940 300 Dextrose 5% in Water 1, 1600 1800 300 000 ml @ 150 mls/hr IV . Q7H40M JOHN PAUL with Sodium Bicarb (1 Meq/ml) 150 ml Rx#:[id number] Sodium Chloride 0.9% 1, 940 140 000 ml @ 110 mls/hr IV . Q9H6M JOHN PAUL Rx#:[id number] Intake, IV Titration 929.224 610.937 30 Amount EPINEPHrine 4 mg In 250 Dextrose 5% in Water 250 ml @ 0.01 MCG/KG/MIN 4.5 mls/hr IV .Q24H JOHN PAUL Rx#: [id number] Norepinephrine 32 mg In 142.174 145.217 Sodium Chloride 0.9% 218 ml @ 0.05 MCG/KG/MIN 2. 822 mls/hr IV .Q24H JOHN PAUL Rx#:[id number] Sodium Chloride 0.9% 500 30 ml 500 ml @ 999 mls/hr IV .Q31M ONE Rx#:[id number] propofoL 1,000 mg In 537.050 465.720 Empty Bag 1 bag @ 5 MCG/ KG/MIN 3.9 mls/hr IV . Q24H JOHN PAUL Rx#:[id number] Output: Urine 0 60 0 Other: Voiding Method Indwelling Catheter Indwelling Catheter ABP, PAP, CO, CI - Last Documented Arterial Blood Pressure 111/57 - Labs CBC & Chem 7: 08/14/21 00:59 08/14/21 00:59 Labs: Abnormal Lab Results - Last 24 Hours (Table) 08/13/21 08/13/21 08/13/21 Range/Units 08:46 10:40 12:44 WBC (3.8-10.6) k/uL RDW (11.5-15.5) % Plt Count (150-450) k/uL Neutrophils # (1.3-7.7) k/uL ABG pH 7.17 L* (7.35-7.45) ABG pCO2 26 L (35-45) mmHg ABG pO2 124 H (83-108) mmHg ABG HCO3 10 L* (21-25) mmol/L ABG Total CO2 10 L (19-24) mmol/L ABG O2 Saturation 98.1 H (94-97) % Chloride (98-107) mmol/L Carbon Dioxide (22-30) mmol/L BUN (7-17) mg/dL Creatinine (0.52-1.04) mg/dL Glucose (74-99) mg/dL POC Glucose (mg/dL) 381 H (70-110) mg/dL Plasma Lactic Acid Raji 21.0 H* (0.7-2.0) mmol/L Calcium (8.4-10.2) mg/dL AST (14-36) U/L ALT (4-34) U/L 08/13/21 08/13/21 08/13/21 Range/Units 18:28 18:55 21:26 WBC (3.8-10.6) k/uL RDW (11.5-15.5) % Plt Count (150-450) k/uL Neutrophils # (1.3-7.7) k/uL ABG pH (7.35-7.45) ABG pCO2 (35-45) mmHg ABG pO2 (83-108) mmHg ABG HCO3 (21-25) mmol/L ABG Total CO2 (19-24) mmol/L ABG O2 Saturation (94-97) % Chloride 97 L (98-107) mmol/L Carbon Dioxide 20 L (22-30) mmol/L BUN 36 H (7-17) mg/dL Creatinine 3.71 H (0.52-1.04) mg/dL Glucose 284 H (74-99) mg/dL POC Glucose (mg/dL) 278 H (70-110) mg/dL Plasma Lactic Acid Raji (0.7-2.0) mmol/L Calcium 6.8 L (8.4-10.2) mg/dL AST >53918 H (14-36) U/L ALT 6190 H (4-34) U/L 08/13/21 08/14/21 08/14/21 Range/Units 23:57 00:59 00:59 WBC 18.7 H (3.8-10.6) k/uL RDW 15.9 H (11.5-15.5) % Plt Count 115 L (150-450) k/uL Neutrophils # 16.6 H (1.3-7.7) k/uL ABG pH (7.35-7.45) ABG pCO2 (35-45) mmHg ABG pO2 (83-108) mmHg ABG HCO3 (21-25) mmol/L ABG Total CO2 (19-24) mmol/L ABG O2 Saturation (94-97) % Chloride 96 L (98-107) mmol/L Carbon Dioxide (22-30) mmol/L BUN 42 H (7-17) mg/dL Creatinine 4.49 H (0.52-1.04) mg/dL Glucose 225 H (74-99) mg/dL POC Glucose (mg/dL) 200 H (70-110) mg/dL Plasma Lactic Acid Raji (0.7-2.0) mmol/L Calcium 6.7 L (8.4-10.2) mg/dL AST (14-36) U/L ALT (4-34) U/L 08/14/21/07/31 Range/Units 05:45 05:55 WBC (3.8-10.6) k/uL RDW (11.5-15.5) % Plt Count (150-450) k/uL Neutrophils # (1.3-7.7) k/uL ABG pH (7.35-7.45) ABG pCO2 33 L (35-45) mmHg ABG pO2 76 L (83-108) mmHg ABG HCO3 18 L (21-25) mmol/L ABG Total CO2 (19-24) mmol/L ABG O2 Saturation (94-97) % Chloride (98-107) mmol/L Carbon Dioxide (22-30) mmol/L BUN (7-17) mg/dL Creatinine (0.52-1.04) mg/dL Glucose (74-99) mg/dL POC Glucose (mg/dL) 211 H (70-110) mg/dL Plasma Lactic Acid Raji (0.7-2.0) mmol/L Calcium (8.4-10.2) mg/dL AST (14-36) U/L ALT (4-34) U/L Microbiology - Last 24 Hours (Table) 08/12/21 22:02 Gram Stain - Preliminary Sputum Sputum Culture - Preliminary
[2021-08-14] MEDS: PANTOPRAZOLE 40 MG/10 ML VIAL IV SCH ×2 (08:58→09:00)
[2021-08-14] MEDS: CHLORHEXIDINE GLUCONATE 15 ML CUP MUCOUS MEM SCH ×2 (08:58→21:57)
[2021-08-14] MEDS: PIPERACILLIN-TAZOBACTAM 3.375 GM in SODIUM CHLORIDE 0.9% 100 ML IVPB SCH ×2 (08:59→21:53)
[2021-08-14] MEDS: levETIRAcetam IV 500 MG in SODIUM CHLORIDE 0.9% 100 ML IVPB SCH ×2 (08:59→21:58)
[2021-08-14] MEDS: SODIUM CHLORIDE 0.9% 1,000 ML IV SCH (08:59)
[2021-08-14] MEDS: HYDROCORTISONE SUCCINATE 100 MG/2 ML VIAL IV SCH ×2 (09:00→17:41)
--- NOTE | 2021-08-14 09:18 | P.NPCON ---
History of Present Illness - Reason for Consult acute renal failure - History of Present Illness Reason for consultation: Acute kidney injury History of present illness: Patient is a 45-year-old female seen in renal consultation for acute kidney injury. Patient's creatinine on admission on 08/12/2021 was 1.02 and is up to 4.49 today. Patient is oliguric. She did receive 80 mg IV Lasix yesterday with no response in urine output. Patient presented to the hospital after suffering cardiac arrest. She was initially in asystole and had return of spontaneous circulation with CPR. Patient had another cardiac arrest. This time it was V. fib and she was shocked 3 times. Currently intubated. She is on Levophed. Was also acidotic and is currently on bicarb drip. Bicarb level today is 22. is present at bedside. Patient does have history of diabetes and was taking metformin as part of her diabetic regimen outpatient. She was also on Lasix outpatient. She is being followed by neurology due to concern for anoxic brain injury. Vital signs are stable. On vasopressor support. General: Intubated. HEENT: Head exam is unremarkable. LUNGS: Breath sounds decreased. HEART: Rate and Rhythm are regular. ABDOMEN: Soft, obese. EXTREMITITES: Trace edema. Past Medical History Past Medical History: Atrial Fibrillation, Heart Failure, Diabetes Mellitus, GI Bleed, Hyperlipidemia, Hypertension, Myocardial Infarction (NH), Musculoskeletal Disorder, Pneumonia, Skin Disorder, Sleep Apnea/CPAP/BIPAP, Thyroid Disorder Additional Past Medical History / Comment(s): "Have had 6 months of walking Pneumonia". Hx steroid induced gluacoma(resolved). Neurosarcoidosis, sarcoidosis which caused heart problems. Eczema. Hx [place] Palsy with right facial droop. Hx concussion at age 12, has some learning disablity-problems with spelling. MS. Graves Disease, " 7 auto immune diseases". DDD. CPAP use. "Weakness all over". Diarrhea and occasional blood in stool. "27 lesions on her brain". "INTERMITTENT GI BLEED" AND PROBLEMS SWALLOWING. pacemaker placement 07/21/2021 Last Myocardial Infarction Date:: 11/15/20 History of Any Multi-Drug Resistant Organisms: MRSA Date of last positivie culture/infection: 07/19/21 MDRO Source:: MRSA BLOOD Past Surgical History: AICD, Cholecystectomy, Heart Catheterization Additional Past Surgical History / Comment(s): VENOGRAM W/CINEFLUROSCOPY. Past Anesthesia/Blood Transfusion Reactions: No Reported Reaction Additional Past Anesthesia/Blood Transfusion Reaction / Comment(s): Claustrophobia. Type of Cardiac Device: Permanent Pacemaker, AICD Device Placement Date:: 03/01 Past Psychological History: ADD/ADHD, Anxiety, Depression Additional Psychological History / Comment(s): Hx panic attacks. Claustrophobia. Smoking Status: Never smoker Past Alcohol Use History: None Reported Past Drug Use History: None Reported - Past Family History Mother Family Medical History: AFIB, Deep Vein Thrombosis (DVT) Father Family Medical History: Osteoarthritis (OA), Thyroid Disorder Medications and Allergies Home Medications Medication Instructions Recorded Confirmed Type metFORMIN HCL [Glucophage] 1,000 mg PO BID-W/MEALS 11/10/17 08/12/21 History Ezetimibe [Zetia] 10 mg PO DAILY 10/06/18 08/12/21 History Apixaban [Eliquis] 5 mg PO BID #180 tab 02/15/19 08/12/21 Rx PARoxetine HCL 30 mg PO DAILY 06/23/19 08/12/21 History Artificial Tears-Hypromellose 1 drop BOTH EYES TID PRN 11/13/20 08/12/21 History [Artificial Tear Drops] Albuterol Inhaler [Ventolin Hfa 2 puff INHALATION RT-Q4H PRN 06/26/21 08/12/21 History Inhaler] Acetaminophen [Tylenol] 1,000 mg PO Q4-6H PRN 07/01/21 08/12/21 History Latanoprost/Pf [Latanoprost 0.005% 1 drop RIGHT EYE HS 07/01/21 08/12/21 History Eye Drop] Levothyroxine Sodium [Synthroid] 175 mcg PO DAILY 07/01/21 08/12/21 History glipiZIDE [Glucotrol] 5 mg PO AC-BRKFST #30 tab 07/05/21 08/12/21 Rx guaiFENesin-Coden 100-10MG/5ML 10 ml PO TID PRN #1000 ml 07/05/21 08/12/21 Rx [Robitussin AC] HYDROcodone/APAP 5-325MG [[place] 1 tab PO Q6HR PRN 3 Days #12 tab 07/11/21 08/12/21 Rx 5-325] Fenofibrate [Lofibra] 160 mg PO DAILY 07/14/21 08/12/21 History Pantoprazole [Protonix] 40 mg PO AC-BID #60 tab 07/25/21 08/12/21 Rx Vancomycin 2,000 mg IVPB Q12HR each 07/25/21 08/12/21 Rx predniSONE 10 mg PO DAILY 07/30/21 08/12/21 History Furosemide [Lasix] 40 mg PO BID@0900,1600 #180 tab 08/01/21 08/12/21 Rx Metoprolol Succinate (ER) [Toprol 25 mg PO DAILY #90 tab 08/01/21 08/12/21 Rx XL] Allergies Allergy/AdvReac Type Severity Reaction Status Date / Time [id number] Reductase AdvReac FACIAL Verified 08/12/21 19:16 Inhibitor NUMBNESS [Ypojjxu-Zrg-Ifn Reductase Inhibitor] SEAFOOD Allergy Rash/Hives Uncoded 07/30/21 17:18 Physical Exam Vitals: Vital Signs Temp Pulse Resp BP Pulse Ox FiO2 08/14/21 08:00 99.5 F 53 L 30 H 95 60 08/14/21 07:30 57 L 30 H 93 L 08/14/21 07:18 60 08/14/21 07:00 56 L 30 H 94 L 60 08/14/21 06:30 56 L 30 H 93 L 60 08/14/21 06:00 56 L 30 H 94 L 60 08/14/21 05:30 54 L 30 H 93 L 60 08/14/21 05:00 102.4 F H 56 L 30 H 94 L 60 08/14/21 04:30 60 30 H 92 L 60 08/14/21 04:00 102.7 F H 61 30 H 93 L 60 08/14/21 03:30 63 30 H 92 L 60 08/14/21 03:27 60 08/14/21 03:00 102.7 F H 59 L 30 H 92 L 60 08/14/21 02:30 64 30 H 92 L 60 08/14/21 02:00 102.7 F H 66 0 L 91 L 60 08/14/21 01:30 64 30 H 91 L 60 08/14/21 01:00 103 F H 63 30 H 92 L 60 08/14/21 00:30 68 30 H 92 L 60 08/14/21 00:00 102.9 F H 61 30 H 92 L 60 08/13/21 23:34 60 08/13/21 23:30 62 30 H 92 L 60 08/13/21 23:04 61 30 H 94 L 60 08/13/21 23:00 104.4 F H 61 30 H 94 L 60 08/13/21 22:30 56 L 30 H 91 L 60 08/13/21 22:10 60 08/13/21 22:00 57 L 30 H 92 L 60 08/13/21 21:30 57 L 30 H 93 L 50 08/13/21 21:00 104.9 F H 57 L 30 H 93 L 50 08/13/21 20:30 56 L 30 H 93 L 08/13/21 20:00 104.2 F H 57 L 30 H 91 L 50 08/13/21 19:37 50 08/13/21 19:30 60 30 H 91 L 08/13/21 19:00 55 L 30 H 92 L 08/13/21 18:30 57 L 30 H 93 L 08/13/21 18:00 57 L 30 H 94 L 08/13/21 17:30 56 L 30 H 93 L 08/13/21 17:00 56 L 14 94 L 08/13/21 16:46 50 08/13/21 16:30 55 L 12 94 L 08/13/21 16:00 103.3 F H 53 L 30 H 93 L 50 08/13/21 15:33 50 08/13/21 15:30 53 L 30 H 94 L 08/13/21 15:00 53 L 37 H 97 08/13/21 14:30 53 L 30 H 95 08/13/21 14:00 52 L 30 H 95 50 08/13/21 13:30 52 L 30 H 93 L 50 08/13/21 13:00 51 L 32 H 90 L 50 08/13/21 12:30 50 L 31 H 95 50 08/13/21 12:00 101.7 F H 50 L 32 H 96 50 08/13/21 11:30 49 L 30 H 97 50 08/13/21 11:20 50 08/13/21 11:00 51 L 40 H 99 50 08/13/21 10:30 50 L 31 H 98 50 08/13/21 10:00 54 L 30 H 108/53 96 50 08/13/21 09:30 55 L 31 H 98 50 Intake and Output 08/13/21 08/14/21 08/14/21 22:59 06:59 14:59 Intake Total 2444.242 6005.097 368.48 Output Total 30 30 0 Balance 7579.498 8782.097 368.48 Intake: IV 1340 1260 300 Dextrose 5% in Water 1, 1200 1200 300 000 ml @ 150 mls/hr IV . Q7H40M JOHN PAUL with Sodium Bicarb (1 Meq/ml) 150 ml Rx#:[id number] Sodium Chloride 0.9% 1, 140 60 000 ml @ 110 mls/hr IV . Q9H6M JOHN PAUL Rx#:[id number] Intake, IV Titration 392.375 450.097 68.48 Amount Norepinephrine 32 mg In 94.485 145.217 Sodium Chloride 0.9% 218 ml @ 0.05 MCG/KG/MIN 2. 822 mls/hr IV .Q24H JOHN PAUL Rx#:[id number] Sodium Chloride 0.9% 500 30 ml 500 ml @ 999 mls/hr IV .Q31M ONE Rx#:[id number] propofoL 1,000 mg In 297.89 304.880 38.48 Empty Bag 1 bag @ 5 MCG/ KG/MIN 3.9 mls/hr IV . Q24H JOHN PAUL Rx#:[id number] Output: Urine 30 30 0 Other: Voiding Method Indwelling Catheter Indwelling Catheter Weight 134.4 kg ABP, PAP, CO, CI - Last 8 Hours Arterial Blood Pressure 111/57 Arterial Blood Pressure 112/59 Arterial Blood Pressure 109/57 Arterial Blood Pressure 110/56 Arterial Blood Pressure 102/56 Arterial Blood Pressure 110/57 Arterial Blood Pressure 120/58 Arterial Blood Pressure 122/65 Arterial Blood Pressure 134/71 Arterial Blood Pressure 135/77 Arterial Blood Pressure 137/72 Arterial Blood Pressure 149/75 Arterial Blood Pressure 146/75 Arterial Blood Pressure 137/71 Results - Lab Results Most recent lab results ABG pH 7.36 (7.35-7.45) 08/14/21 05:55 ABG pCO2 33 mmHg (35-45) L 08/14/21 05:55 ABG pO2 76 mmHg (83-108) L 08/14/21 05:55 ABG HCO3 18 mmol/L (21-25) L 08/14/21 05:55 ABG O2 Saturation 94.1 % (94-97) 08/14/21 05:55 Calcium 6.7 mg/dL (8.4-10.2) L 08/14/21 00:59 Phosphorus 10.1 mg/dL (2.5-4.5) H* 08/13/21 04:19 Magnesium 1.9 mg/dL (1.6-2.3) 08/13/21 04:19 08/14/21 00:59 08/14/21 00:59 Assessment and Plan Plan: Assessment: 1. Acute kidney injury secondary to ATN secondary to cardiac arrest. Baseline creatinine near 1 and is up to 4.49 today. Oliguric. 2. Status post cardiac arrest on 08/12/2021. Patient noted to have prolonged downtime. 3. Metabolic acidosis secondary to acute kidney injury and metformin. Improved with bicarb drip. 4. Shock liver. 5. Diabetes mellitus. 6. History of nonischemic cardiomyopathy with AICD, cardiac sarcoid as well as A. fib. 7. Shock maintained on vasopressor support. ?Cardiogenic versus septic. 8. Anoxic brain injury. Neurology following. 9. Hyperphosphatemia secondary to acute kidney injury. Plan: Stop bicarb drip. Start normal saline at 75 mL an hour. No improvement in urine output despite 80 mg IV Lasix given 08/13/2021. Wean FiO2 and vasopressors. Due to worsening renal function and oliguria, initiated renal replacement therapy. Consult vascular surgery for temporary dialysis catheter placement. Plan for first treatment of hemodialysis today and second treatment tomorrow. Check renal ultrasound. Follow-up echocardiogram. Case discussed with the in detail present at bedside. Thank you for the consultation. I will continue to follow the patient with you during her hospital stay.
[2021-08-14] MEDS ORDERED: LORazepam 1 MG/0.5 ML VIAL IV PRN (11:16)
[2021-08-14] MEDS ORDERED: MORPHINE SULFATE 4 MG/ML SYRINGE IVP PRN (11:16)
--- NOTE | 2021-08-14 11:42 | P.PN ---
Subjective Progress Note Date: 08/14/21 The patient is seen at bedside and was notified by night nurse at 5ish AM today that patient sedation was being weaned down and her pupils were dilated and non- reactive. She notified me that patient was not able to go down for CT head since unstable. Notified her to give patient one time dose of Mannitol for her likely cerebral edema from anoxic brain injury from cardiac arrest but was not able because of her worsening of kidney function. She is suppose to go for dialysis. Today in the early AM she was on IV Propofol 20mcg/kg/min then was held. Objective - Vital Signs Vital signs: Vital Signs Temp 99.5 F 08/14/21 08:00 Pulse 54 L 08/14/21 09:30 Resp 32 H 08/14/21 09:30 BP 108/53 08/13/21 10:00 Pulse Ox 95 08/14/21 09:30 FiO2 100 08/14/21 10:43 Intake & Output 08/13/21 08/14/21 08/14/21 18:59 06:59 18:59 Intake Total 3469.224 2550.937 659.375 Output Total 0 60 0 Balance 3469.224 2490.937 659.375 Weight 134.4 kg Intake: IV 2540 1940 300 Dextrose 5% in Water 1, 1600 1800 300 000 ml @ 150 mls/hr IV . Q7H40M [facility] with Sodium Bicarb (1 Meq/ml) 150 ml Rx#:[id number] Sodium Chloride 0.9% 1, 940 140 000 ml @ 110 mls/hr IV . Q9H6M [facility] Rx#:[id number] Intake, IV Titration 929.224 610.937 359.375 Amount EPINEPHrine 4 mg In 250 Dextrose 5% in Water 250 ml @ 0.01 MCG/KG/MIN 4.5 mls/hr IV .Q24H [facility] Rx#: [id number] Norepinephrine 32 mg In 142.174 145.217 10.045 Sodium Chloride 0.9% 218 ml @ 0.05 MCG/KG/MIN 2. 822 mls/hr IV .Q24H [facility] Rx#:[id number] Piperacillin-Tazobactam 3 100 .375 gm In Sodium Chloride 0.9% 100 ml @ 25 mls/hr IVPB Q12HR [facility] Rx #:[id number] Sodium Chloride 0.9% 1, 75 000 ml @ 75 mls/hr IV . [id number] [facility] Rx#:[id number] Sodium Chloride 0.9% 500 30 ml 500 ml @ 999 mls/hr IV .Q31M [facility] Rx#:[id number] levETIRAcetam IV 500 mg 100 In Sodium Chloride 0.9% 100 ml @ 400 mls/hr IVPB Q12HR [facility] Rx#:[id number] propofoL 1,000 mg In 537.050 465.720 44.33 Empty Bag 1 bag @ 5 MCG/ KG/MIN 3.9 mls/hr IV . Q24H [facility] Rx#:[id number] Output: Urine 0 60 0 Other: Voiding Method Indwelling Catheter Indwelling Catheter ABP, PAP, CO, CI - Last Documented Arterial Blood Pressure 99/51 - Exam GENERAL: The patient is lying in bed and does not appear in acute distress. HENT: Has scleral icterus. LUNG: . Intubated on ventilator. NEUROLOGICAL: Limited because of her condition. Is on IV Propofol 20mcg/kg/min was held for about 2 hours prior to seeing the patient. Higher mental function: Is comatose GCS 3 (E1, VT1, M1) Cranial nerves: I had to manually open her eyes and right pupil is 3-4mm while left is 4-5mm and non-reactive to light. -ve corneal reflex bilaterally. -ve occulocpehalic. No facial weakness. No gag reflex. Continues to have right eyelid twitching that seems constant. Is breathing over the vent. Motor: The strength is unable to assess but to painful stimuli not withdrawing. Cerebellum: Unable to assess. Sensation: Unable to assess light touch. But to painful stimuli not withdrawing. Some of the workup in our facility during this admission consisted of: Her liver function is worsening and the before meals currently is more thing that 15,000 ALT is 6198. Creatinine function is trending up most current one is creatinine is 4.49. EEG on 08/13/2021 is abnormal. The back of slowing suggestive of severe encephalopathy. There is no focal slowing, epileptiform discharges or seizure o n the EEG. - Labs CBC & Chem 7: 08/14/21 00:59 08/14/21 00:59 Labs: Abnormal Lab Results - Last 24 Hours (Table) 08/13/21 08/13/21 08/13/21 Range/Units 12:44 18:28 18:55 WBC (3.8-10.6) k/uL RDW (11.5-15.5) % Plt Count (150-450) k/uL Neutrophils # (1.3-7.7) k/uL ABG pCO2 (35-45) mmHg ABG pO2 (83-108) mmHg ABG HCO3 (21-25) mmol/L Chloride 97 L (98-107) mmol/L Carbon Dioxide 20 L (22-30) mmol/L BUN 36 H (7-17) mg/dL Creatinine 3.71 H (0.52-1.04) mg/dL Glucose 284 H (74-99) mg/dL POC Glucose (mg/dL) 381 H 278 H (70-110) mg/dL Calcium 6.8 L (8.4-10.2) mg/dL AST (14-36) U/L ALT (4-34) U/L 08/13/21 08/13/21 08/14/21 Range/Units 21:26 23:57 00:59 WBC 18.7 H (3.8-10.6) k/uL RDW 15.9 H (11.5-15.5) % Plt Count 115 L (150-450) k/uL Neutrophils # 16.6 H (1.3-7.7) k/uL ABG pCO2 (35-45) mmHg ABG pO2 (83-108) mmHg ABG HCO3 (21-25) mmol/L Chloride (98-107) mmol/L Carbon Dioxide (22-30) mmol/L BUN (7-17) mg/dL Creatinine (0.52-1.04) mg/dL Glucose (74-99) mg/dL POC Glucose (mg/dL) 200 H (70-110) mg/dL Calcium (8.4-10.2) mg/dL AST >43071 H (14-36) U/L ALT 6190 H (4-34) U/L 08/14/21 08/14/21 08/14/21 Range/Units 00:59 05:45 05:55 WBC (3.8-10.6) k/uL RDW (11.5-15.5) % Plt Count (150-450) k/uL Neutrophils # (1.3-7.7) k/uL ABG pCO2 33 L (35-45) mmHg ABG pO2 76 L (83-108) mmHg ABG HCO3 18 L (21-25) mmol/L Chloride 96 L (98-107) mmol/L Carbon Dioxide (22-30) mmol/L BUN 42 H (7-17) mg/dL Creatinine 4.49 H (0.52-1.04) mg/dL Glucose 225 H (74-99) mg/dL POC Glucose (mg/dL) 211 H (70-110) mg/dL Calcium 6.7 L (8.4-10.2) mg/dL AST (14-36) U/L ALT (4-34) U/L Microbiology - Last 24 Hours (Table) 08/12/21 22:02 Gram Stain - Preliminary Sputum Sputum Culture - Preliminary Assessment and Plan Assessment: 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 Also a component of patient's encephalopathy due to cardiogenic shock with metabolic derangement/hepatic as well as medication (IV Propofol) Cardiac arrest unsure exactly downtime but per nurse possible around 15- 20minutes. Rhythm with V.Fib Myoclonus (with episodes of right eye/facial twitching, chin and bilateral thigh) due to cardiac arrest Acute hypoxic respiratory failure due to cardiac arrest status post intubated on a ventilator Cardiogenic shock Acute kidney insufficiency--worsening History of Cardiac sarcoidosis Systolic congestive heart failure status post AICD Recent admission for MRSA bacteremia, AICD vegetation atrial fibrillation on eliquis History of mulitple sclerosis Type 2 diabetes Plan: Continue Keppra 500 mg every 12 hours with a loading of 500 avoid any higher dose of 500 loading because of her kidney insufficiency. CT of the head without: Pending (patient is currently unstable). Likely patient has vasogenic edema from her anoxic brain injury and causing herniation since has dilated pupils. Cannot start Mannitol since has severe kidney insufficiency and is in the process of starting dialysis. Every 2 neurochecks Please avoid hypotensive episodes. Patient to be undergoing dialysis today. Cardiology is on board We'll defer the rest of the medical management to the primary and ICU team Patient condition is very poor. She has only one brainstem reflex (breathing over the vent) but has fixed and dilated pupils. I had lengthy discussion with patient's , mother and [id number]. Her wants to pursue with medical management and understands the seriousness of current situation. She is no Code. Hector Calderon M.D. Neuro-Hospitalist Time with Patient: Greater than 30
[2021-08-14 11:54] LABS: ALT 6208 U/L (4-34); AST >15000 U/L (14-36)
--- NOTE | 2021-08-14 12:02 | US ---
EXAMINATION TYPE: US kidneys/renal and bladder DATE OF EXAM: 08/14/2021 COMPARISON: CT abdomen pelvis 01/07/2020 CLINICAL HISTORY: perez. ICU patient, PEREZ EXAM MEASUREMENTS: Right Kidney: 13.9 x 6.8 x 6.1 cm Left Kidney: unable to visualize technical limitations due to patient's body habitus Right Kidney: no evidence of hydronephrosis, lobulated contour Left Kidney: Obscured by overlying bowel gas Bladder: Garrison Catheter IMPRESSION: 1. No evidence of right hydronephrosis. 2. Left kidney obscured by bowel gas and not evaluated.
[2021-08-14 13:04] LABS: Glucose,Whole Blood 145 mg/dL (70-110)
--- NOTE | 2021-08-14 13:11 | P.PN ---
Subjective Progress Note Date: 08/14/21 Principal diagnosis: Cardiac arrest This is a 45-year-old female known to my service from previous admission. Patient had history of nonischemic cardiomyopathy and previous AICD placement. History of cardiac sarcoidosis. Patient was recently in the hospital from 07/14 until 07/26 for MRSA bacteremia and pacemaker lead vegetation. Patient was seen on consultation by us and by infectious disease, she underwent extraction of the right atrial lead, LV lead and RV ICD lead, then she had implantation of the new RV pacing lead and implantation of single-chamber pacemaker generator in the pocket. Patient was discharged home with a PICC line in place, and she was receiving antibiotics for a total of 6 weeks supposedly yesterday, during sexual intercourse, patient became unresponsive according to her . EMS was notified, and upon arrival she was noted to have very weak pulses, and shallow respirations. Patient was noted to be in ventricular fibrillation and she was cardioverted. CPR was also performed. Patient remained apneic and unresponsive and there was difficulty removing the patient from the house. Patient also had additional cardiac arrest. She was eventually brought into the ER, and admitted to the ICU. Her down time must have been about 20 minutes. Patient is known to have history of LV dysfunction, echocardiogram in June showed LV dysfu nction with ejection fraction of 35-40%. Patient is also known to have mitral regurgitation, severe global LV dysfunction. Patient was admitted to the ICU yesterday, and she is now on mechanical ventilation with assist control of 28 tidal volume 450 FiO2 50% PEEP of 5. ABG showed a pO2 of 118 pCO2 32 pH of 7.11. Patient received bicarbonate earlier and she is on a bicarb drip at 100 mL per hour. She is also on propofol at 50 mcg/kg/m and epinephrine at 0.2, however I'm planning to transition epinephrine to norepinephrine and eventually discontinue epinephrine. Chest x-ray showed no evidence of active disease, different lines and indwelling catheter seemed to be in proper position. Alissa sifuentes was seen by neurology on consultation, EEG is pending, and it is felt that the patient may have anoxic encephalopathy due to cardiac arrest. Patient was empirically started on Keppra for potential seizure activity. Labs today showed leukocytosis with WBC of 27.8 hemoglobin 13. Repeat ABG showed a pO2 of 124 pCO2 26 pH of 7.17. Creatinine jumped up from 1.02 on admission to 2.59 this morning. Blood sugars are in the range of 304. Lactic acid as high as 21. Patient was placed on stress doses of hydrocortisone. She is also on antibiotics in the form of Zosyn. And she is on bicarb drip. Reevaluated today on 08/14/2021, patient remains in the ICU, intubated and mechanically ventilated. Patient is not doing well, her overall clinical status remains extremely poor. Patient is unresponsive to any stimuli. Her pupils are nonreactive. She is on assist control rate of 30 tidal volume 450 FiO2 60% PEEP of 5 ABG showed a pO2 of 76 pCO2 33 pH of 7.36. IV fluid is 0.9 normal saline at 55 mL per hour, her propofol is presently on hold, and she is off norepinephrine drip. Patient remains on Zosyn and daptomycin cultures are pending. Today no changes were made at her ventilator settings and she is presently off sedation to be assessed by neurology later on. Patient is being c onsidered for hemodialysis. Seen by nephrology today, and considering her renal status obviously the patient needs to be hemodialyzed. Renal ultrasound this morning showed no evidence of hydronephrosis, left kidney could not be visualized. Chest x-ray continues to show right basilar opacity, consistent with possible aspiration pneumonia PICC line tip is at the brachiocephalic subclavian confluence. WBC count today is 18.7 hemoglobin 13.8 electrolytes are normal BUN is 42 creatinine 4.49 liver enzymes are significantly elevated with AST of over 15,000 ammonia level is 49 and ALT is 6208 Objective - Vital Signs Vital signs: Vital Signs Temp 99.5 F 08/14/21 08:00 Pulse 54 L 08/14/21 09:30 Resp 32 H 08/14/21 09:30 BP 108/53 08/13/21 10:00 Pulse Ox 95 08/14/21 09:30 FiO2 100 08/14/21 10:43 Intake & Output 08/13/21 08/14/21 08/14/21 18:59 06:59 18:59 Intake Total 3469.224 2550.937 884.375 Output Total 0 60 0 Balance 3469.224 2490.937 884.375 Weight 134.4 kg Intake: IV 2540 1940 300 Dextrose 5% in Water 1, 1600 1800 300 000 ml @ 150 mls/hr IV . Q7H40M [facility] with Sodium Bicarb (1 Meq/ml) 150 ml Rx#:[id number] Sodium Chloride 0.9% 1, 940 140 000 ml @ 110 mls/hr IV . Q9H6M [facility] Rx#:[id number] Intake, IV Titration 929.224 610.937 584.375 Amount EPINEPHrine 4 mg In 250 Dextrose 5% in Water 250 ml @ 0.01 MCG/KG/MIN 4.5 mls/hr IV .Q24H [facility] Rx#: [id number] Norepinephrine 32 mg In 142.174 145.217 10.045 Sodium Chloride 0.9% 218 ml @ 0.05 MCG/KG/MIN 2. 822 mls/hr IV .Q24H [facility] Rx#:[id number] Piperacillin-Tazobactam 3 100 .375 gm In Sodium Chloride 0.9% 100 ml @ 25 mls/hr IVPB Q12HR [facility] Rx #:[id number] Sodium Chloride 0.9% 1, 300 000 ml @ 75 mls/hr IV . [id number] [facility] Rx#:[id number] Sodium Chloride 0.9% 500 30 ml 500 ml @ 999 mls/hr IV .Q31M [facility] Rx#:[id number] levETIRAcetam IV 500 mg 100 In Sodium Chloride 0.9% 100 ml @ 400 mls/hr IVPB Q12HR [facility] Rx#:[id number] propofoL 1,000 mg In 537.050 465.720 44.33 Empty Bag 1 bag @ 5 MCG/ KG/MIN 3.9 mls/hr IV . Q24H [facility] Rx#:[id number] Output: Urine 0 60 0 Other: Voiding Method Indwelling Catheter Indwelling Catheter ABP, PAP, CO, CI - Last Documented Arterial Blood Pressure 99/51 - Exam Physical Exam: Revealed a 45-year-old female, obese, intubated and mechanically ventilated. Head: Atraumatic, normocephalic. HEENT:[Neck is supple.] [No neck masses.] [No thyromegaly.] [No JVD.] PERRLA, EOMI, nonicteric. Chest: Symmetrical chest expansion, diminished breath sounds at the bases no rhonchi no wheezes Cardiac Exam: Regular rhythm, 2/6 systolic murmur thought the precordium. Abdomen: [Obese, Soft, nontender, no megaly, no rebound, no guarding, normal bowel sounds.] Extremities: [No clubbing, no edema, no cyanosis.] Neurological Exam: Patient is off sedation, unresponsive to any stimuli, pupils are dilated and nonreactive. psychiatric: Could not assess, patient is unresponsive to any stimuli - Labs CBC & Chem 7: 08/14/21 00:59 08/14/21 00:59 Labs: Abnormal Lab Results - Last 24 Hours (Table) 08/13/21 08/13/21 08/13/21 Range/Units 18:28 18:55 21:26 WBC (3.8-10.6) k/uL RDW (11.5-15.5) % Plt Count (150-450) k/uL Neutrophils # (1.3-7.7) k/uL ABG pCO2 (35-45) mmHg ABG pO2 (83-108) mmHg ABG HCO3 (21-25) mmol/L Chloride 97 L (98-107) mmol/L Carbon Dioxide 20 L (22-30) mmol/L BUN 36 H (7-17) mg/dL Creatinine 3.71 H (0.52-1.04) mg/dL Glucose 284 H (74-99) mg/dL POC Glucose (mg/dL) 278 H (70-110) mg/dL Plasma Lactic Acid Raji (0.7-2.0) mmol/L Calcium 6.8 L (8.4-10.2) mg/dL AST >34752 H (14-36) U/L ALT 6190 H (4-34) U/L Ammonia (<30) umol/L 08/13/21 08/14/21 08/14/21 Range/Units 23:57 00:59 00:59 WBC 18.7 H (3.8-10.6) k/uL RDW 15.9 H (11.5-15.5) % Plt Count 115 L (150-450) k/uL Neutrophils # 16.6 H (1.3-7.7) k/uL ABG pCO2 (35-45) mmHg ABG pO2 (83-108) mmHg ABG HCO3 (21-25) mmol/L Chloride 96 L (98-107) mmol/L Carbon Dioxide (22-30) mmol/L BUN 42 H (7-17) mg/dL Creatinine 4.49 H (0.52-1.04) mg/dL Glucose 225 H (74-99) mg/dL POC Glucose (mg/dL) 200 H (70-110) mg/dL Plasma Lactic Acid Raji (0.7-2.0) mmol/L Calcium 6.7 L (8.4-10.2) mg/dL AST (14-36) U/L ALT (4-34) U/L Ammonia (<30) umol/L 08/14/21 08/14/21 08/14/21 Range/Units 00:59 05:45 05:55 WBC (3.8-10.6) k/uL RDW (11.5-15.5) % Plt Count (150-450) k/uL Neutrophils # (1.3-7.7) k/uL ABG pCO2 33 L (35-45) mmHg ABG pO2 76 L (83-108) mmHg ABG HCO3 18 L (21-25) mmol/L Chloride (98-107) mmol/L Carbon Dioxide (22-30) mmol/L BUN (7-17) mg/dL Creatinine (0.52-1.04) mg/dL Glucose (74-99) mg/dL POC Glucose (mg/dL) 211 H (70-110) mg/dL Plasma Lactic Acid Raji (0.7-2.0) mmol/L Calcium (8.4-10.2) mg/dL AST >69396 H (14-36) U/L ALT 6208 H (4-34) U/L Ammonia (<30) umol/L 08/14/21 08/14/21 Range/Units 11:59 11:59 WBC (3.8-10.6) k/uL RDW (11.5-15.5) % Plt Count (150-450) k/uL Neutrophils # (1.3-7.7) k/uL ABG pCO2 (35-45) mmHg ABG pO2 (83-108) mmHg ABG HCO3 (21-25) mmol/L Chloride (98-107) mmol/L Carbon Dioxide (22-30) mmol/L BUN (7-17) mg/dL Creatinine (0.52-1.04) mg/dL Glucose (74-99) mg/dL POC Glucose (mg/dL) (70-110) mg/dL Plasma Lactic Acid Raji 14.6 H* (0.7-2.0) mmol/L Calcium (8.4-10.2) mg/dL AST (14-36) U/L ALT (4-34) U/L Ammonia 49 H (<30) umol/L Microbiology - Last 24 Hours (Table) 08/12/21 22:02 Gram Stain - Preliminary Sputum Sputum Culture - Preliminary Assessment and Plan Assessment: Impression: Acute hypoxic respiratory failure secondary to cardiac arrest with ventricular fibrillation arrest, status post defibrillation and CPR in the field, down 15-20 minutes. Suspect anoxic brain injury, EEG is suggestive of severe encephalopathy Severe lactic acidosis, likely due to prolonged downtime. Possible septic shock considering the patient had recent bacteremia and she was already on antibiotics. Cultures are pending Cardiac sarcoidosis. Paroxysmal atrial fibrillation. Benign essential hypertension. Type 2 diabetes. Acute kidney injury secondary to cardiac arrest, acute tubular necrosis. History of recent MRSA bacteremia and AICD vegetations Nonischemic cardiomyopathy and previous Severe lactic acidosis secondary to poor hypoperfusion and prolonged downtime. Recommendation: Continue ventilatory support, no changes were made today. Continue hemodynamic use norepinephrine as needed. Continue GI and DVT prophylaxis Nutritional support/enteral feeding Nephrology is considering the patient for hemodialysis possibly today. Neurology to see her on consultation for presumptive anoxic brain injury Prognosis is extremely poor and guarded Discussed her condition with family at bedside. Patient is critically ill. Critical care time is over 30 minute Time with Patient: Greater than 30
--- NOTE | 2021-08-14 14:44 | CONS ---
DATE OF CONSULTATION: 08/14/2021 This is a 45-year-old female. Patient was seen in the Intensive Care Unit for placement of a dialysis catheter for history of acute on chronic renal failure. The patient has been admitted and had CPR and defibrillation done and she has been intubated. PAST MEDICAL HISTORY: Patient has history of A. fib, type 2 diabetes and hypertension. Sleep apnea on CPAP. SURGICAL HISTORY: Patient had an AICD placed in the past, cholecystectomy and heart catheterization. PHYSICAL EXAMINATION: Patient was seen in the intensive care unit. The patient has been intubated. Neck is supple. Patient has bilateral crackles. Air entry is diminished bilaterally. Abdomen is protuberant. No peritoneal sign noted. The patient has a right femoral triple-lumen catheter. PLAN: Placement of a catheter left femoral approach. Risks and complications discussed. MMODL / IJN: [id number] / MTDD
--- NOTE | 2021-08-14 14:44 | PCN ---
DATE OF SERVICE: 08/14/2021 PROCEDURE NOTE PREOP DIAGNOSIS: Acute on chronic renal failure. PROCEDURE PERFORMED: Ultrasound guided dialysis catheter placement left femoral approach. The patient was seen in the Intensive Care Unit. Right groin was prepped and drapes applied in a sterile manner. 1% lidocaine infiltrated in the groin. Ultrasound- guided micropuncture introduced into the right femoral vein. Micropuncture guidewire was passed and 4 cm dilator advanced on top of the guidewire. After that we passed a regular guidewire without any resistance. Dilator was advanced on the top of the guidewire, then we placed a dialysis catheter. Guidewire was removed. Flushed with heparin saline and hep-locked, secured with 3-0 nylon. Patient tolerated the procedure well. MMHODANL / OSBALDON: [id number] / MTDD
--- NOTE | 2021-08-14 14:45 | P.PN ---
Subjective Progress Note Date: 08/14/21 (delayed charting seen at 1105) Patient is a 45-year-old female with cardiac sarcoidosis, nonischemic cardiomyopathy status post AICD with removal and recent pacemaker implantation, A. fib, type 2 diabetes, hypertension, and dyslipidemia who was brought into the emergency department after she suffered a cardiac arrest at home. Patient subsequently had a second cardiac arrest while under medical care. She had a prolonged down time. Has had multiple recent hospitalizations for pancreatitis and then MRSA bacteremia with ICD lead vegetation, subsequent recommendations for outpatient IV antibiotics, and then congestive heart failure exacerbation. She was determined not to be a candidate for an emergent cardiac catheterization due to her prolonged downtime and nonischemic cardiomyopathy history. She was subsequently admitted to the ICU. She was followed by pulmonary critical care, cardiology, neurology, nephrology. She developed significant renal failure as well as shock liver. She underwent an EEG which showed diffuse slowing consistent with severe encephalopathy. On the morning of 08/14 her pupils became fixed and dilated. Imaging: Renal ultrasound: Right sided. By bowel gas pattern, left side without hydronephrosis EEG: Background slowing suggestive of encephalopathy Patient seen and examined at bedside. Family present. Patient is currently nonresponsive on vent. I discussed with , [id number], and mother her poor overall prognosis. We discussed that her pupils are no longer reacting to light, but her liver is feeling, that her heart is feeling and she is needing vasopressor agents, and that her ventilator requirements are increasing. They want to keep giving her a chance to recover from this, however they want to ensure she does not have pain. We discussed that this is not a good sign and they are well aware. She is currently a DO NOT RESUSCITATE status. I discussed with them that we would use morphine and Ativan as needed if she exhibits signs of pain or distress. General: ill appearing, moderate distress distress, appears at stated age Derm: warm, dry Head: atraumatic, normocephalic, symmetric Eyes: Pupils fixed and dilated, no scleral edema, no scleral icterus Mouth: no lip lesion, mucus membranes dry Cardiovascular: S1S2 reg, no murmur, positive posterior tibial pulse bilateral, Lungs: Coarse breath sounds bilateral, no rhonchi, no rales , no accessory muscle use, on vent Abdominal: soft, nontender to palpation, no guarding, no appreciable organomegaly Ext: no gross muscle atrophy, no edema, no contractures Neuro: + Breathing over events, no cough, no gag, pupils fixed and dilated, no withdrawal to pain in all 4 extremities Psych: Nonresponsive on vent Assessment/plan: 1 cardiac 2 with Rosc Prolonged downtime Severe lactic acidosis Shock liver Multiorgan system dysfunction syndrome Anoxic encephalopathy Hyperammonia Probable septic vs cardiogenic shock Thrombocytopenia - neuro, cardio, and pulm recs apprecaited - supprotive care - Continue with ventilator support -Continue with daptomycin and Zosyn -Continue with vasopressor agents and stress dose steroids -lactulose - follow ammonia levels - on Keppra for seizure prophylaxis Olioguric reanl failure - Nephrology recs: plan is for HD in AM - follow renal function - repeat Cr in AM Chronic systolic congestive heart failure Nonischemic cardiomyopathy with previous AICD Paroxysmal atrial fibrillation anticoagulated with eliquis Cardiac sarcoidosis - cardio recs - currently on levophed. Diabetes mellitus type 2 - SSI, follow BS Hypertension Dyslipidemia Recent MRSA bacteremia Poor overall prognosis. Family aware. Patient is a DO NOT RESUSCITATE. Added morphine and Ativan. Objective - Vital Signs Vital signs: Vital Signs Temp 101.3 F H 08/14/21 12:00 Pulse 52 L 08/14/21 13:30 Resp 30 H 08/14/21 13:30 BP 108/53 08/13/21 10:00 Pulse Ox 98 08/14/21 13:30 FiO2 85 08/14/21 13:28 Intake & Output 08/13/21 08/14/21 08/14/21 18:59 06:59 18:59 Intake Total 3469.224 2550.937 1034.375 Output Total 0 60 6 Balance 3469.224 2490.937 1028.375 Weight 134.4 kg Intake: IV 2540 1940 375 Dextrose 5% in Water 1, 1600 1800 300 000 ml @ 150 mls/hr IV . Q7H40M [facility] with Sodium Bicarb (1 Meq/ml) 150 ml Rx#:[id number] Sodium Chloride 0.9% 1, 940 140 000 ml @ 110 mls/hr IV . Q9H6M [facility] Rx#:[id number] Sodium Chloride 0.9% 1, 75 000 ml @ 75 mls/hr IV . Q40I26Q [facility] Rx#:[id number] Intake, IV Titration 929.224 610.937 659.375 Amount EPINEPHrine 4 mg In 250 Dextrose 5% in Water 250 ml @ 0.01 MCG/KG/MIN 4.5 mls/hr IV .Q24H [facility] Rx#: [id number] Norepinephrine 32 mg In 142.174 145.217 10.045 Sodium Chloride 0.9% 218 ml @ 0.05 MCG/KG/MIN 2. 822 mls/hr IV .Q24H [facility] Rx#:[id number] Piperacillin-Tazobactam 3 100 .375 gm In Sodium Chloride 0.9% 100 ml @ 25 mls/hr IVPB Q12HR [facility] Rx #:[id number] Sodium Chloride 0.9% 1, 375 000 ml @ 75 mls/hr IV . [id number] [facility] Rx#:[id number] Sodium Chloride 0.9% 500 30 ml 500 ml @ 999 mls/hr IV .Q31M [facility] Rx#:[id number] levETIRAcetam IV 500 mg 100 In Sodium Chloride 0.9% 100 ml @ 400 mls/hr IVPB Q12HR [facility] Rx#:[id number] propofoL 1,000 mg In 537.050 465.720 44.33 Empty Bag 1 bag @ 5 MCG/ KG/MIN 3.9 mls/hr IV . Q24H [facility] Rx#:[id number] Output: Urine 0 60 6 Other: Voiding Method Indwelling Catheter Indwelling Catheter Indwelling Catheter ABP, PAP, CO, CI - Last Documented Arterial Blood Pressure 99/55 - Labs CBC & Chem 7: 08/14/21 00:59 08/14/21 00:59 Labs: Abnormal Lab Results - Last 24 Hours (Table) 08/13/21 08/13/21 08/13/21 Range/Units 18:28 18:55 21:26 WBC (3.8-10.6) k/uL RDW (11.5-15.5) % Plt Count (150-450) k/uL Neutrophils # (1.3-7.7) k/uL ABG pCO2 (35-45) mmHg ABG pO2 (83-108) mmHg ABG HCO3 (21-25) mmol/L Chloride 97 L (98-107) mmol/L Carbon Dioxide 20 L (22-30) mmol/L BUN 36 H (7-17) mg/dL Creatinine 3.71 H (0.52-1.04) mg/dL Glucose 284 H (74-99) mg/dL POC Glucose (mg/dL) 278 H (70-110) mg/dL Plasma Lactic Acid Raji (0.7-2.0) mmol/L Calcium 6.8 L (8.4-10.2) mg/dL AST >99264 H (14-36) U/L ALT 6190 H (4-34) U/L Ammonia (<30) umol/L 08/13/21 08/14/21 08/14/21 Range/Units 23:57 00:59 00:59 WBC 18.7 H (3.8-10.6) k/uL RDW 15.9 H (11.5-15.5) % Plt Count 115 L (150-450) k/uL Neutrophils # 16.6 H (1.3-7.7) k/uL ABG pCO2 (35-45) mmHg ABG pO2 (83-108) mmHg ABG HCO3 (21-25) mmol/L Chloride 96 L (98-107) mmol/L Carbon Dioxide (22-30) mmol/L BUN 42 H (7-17) mg/dL Creatinine 4.49 H (0.52-1.04) mg/dL Glucose 225 H (74-99) mg/dL POC Glucose (mg/dL) 200 H (70-110) mg/dL Plasma Lactic Acid Raji (0.7-2.0) mmol/L Calcium 6.7 L (8.4-10.2) mg/dL AST (14-36) U/L ALT (4-34) U/L Ammonia (<30) umol/L 08/14/21 08/14/21 08/14/21 Range/Units 00:59 05:45 05:55 WBC (3.8-10.6) k/uL RDW (11.5-15.5) % Plt Count (150-450) k/uL Neutrophils # (1.3-7.7) k/uL ABG pCO2 33 L (35-45) mmHg ABG pO2 76 L (83-108) mmHg ABG HCO3 18 L (21-25) mmol/L Chloride (98-107) mmol/L Carbon Dioxide (22-30) mmol/L BUN (7-17) mg/dL Creatinine (0.52-1.04) mg/dL Glucose (74-99) mg/dL POC Glucose (mg/dL) 211 H (70-110) mg/dL Plasma Lactic Acid Raji (0.7-2.0) mmol/L Calcium (8.4-10.2) mg/dL AST >04190 H (14-36) U/L ALT 6208 H (4-34) U/L Ammonia (<30) umol/L 08/14/21 08/14/21 08/14/21 Range/Units 11:59 11:59 13:04 WBC (3.8-10.6) k/uL RDW (11.5-15.5) % Plt Count (150-450) k/uL Neutrophils # (1.3-7.7) k/uL ABG pCO2 (35-45) mmHg ABG pO2 (83-108) mmHg ABG HCO3 (21-25) mmol/L Chloride (98-107) mmol/L Carbon Dioxide (22-30) mmol/L BUN (7-17) mg/dL Creatinine (0.52-1.04) mg/dL Glucose (74-99) mg/dL POC Glucose (mg/dL) 145 H (70-110) mg/dL Plasma Lactic Acid Raji 14.6 H* (0.7-2.0) mmol/L Calcium (8.4-10.2) mg/dL AST (14-36) U/L ALT (4-34) U/L Ammonia 49 H (<30) umol/L Microbiology - Last 24 Hours (Table) 08/12/21 22:02 Gram Stain - Preliminary Sputum Sputum Culture - Preliminary
[2021-08-14] MEDS: LACTULOSE 20 GM/30 ML CUP PO SCH ×3 (15:18→21:57)
[2021-08-14] MEDS ORDERED: ACETAMINOPHEN IV (For NPO) 1,000 MG in EMPTY BAG 1 BAG IVPB STA (16:21)
[2021-08-14] MEDS ORDERED: SALINE IV ONE (17:00)
[2021-08-14] MEDS ORDERED: MANNITOL 20% IV ONE ×2 (17:00→17:15)
[2021-08-14] MEDS: HEPARIN SODIUM,PORCINE/PF 5,000 UNIT/0.5 ML SYRINGE SQ SCH (17:41)
[2021-08-14 18:00] LABS: Glucose,Whole Blood 148 mg/dL (70-110)
[2021-08-14 20:31] LABS: Hepatitis B Surface AB- Quant 3.5 mIU/mL; Hepatitis B Surface Antibody Nonreactive (Nonreactive)
[2021-08-14 20:35] LABS: Hepatitis B Surface Antigen Nonreactive (Nonreactive)
[2021-08-14 22:54] VITALS: BP 108/53
[2021-08-14 23:46] LABS: Glucose,Whole Blood 125 mg/dL (70-110)
[2021-08-15 01:12] LABS: Glucose,Whole Blood 132 mg/dL (70-110)
[2021-08-15] MEDS: HEPARIN SODIUM,PORCINE/PF 5,000 UNIT/0.5 ML SYRINGE SQ SCH ×2 (01:30→08:21)
[2021-08-15] MEDS: INSULIN ASPART (NovoLOG) 100 UNIT/ML VIAL SQ SCH ×2 (01:31→06:12)
[2021-08-15] MEDS: HYDROCORTISONE SUCCINATE 100 MG/2 ML VIAL IV SCH ×2 (02:48→08:22)
[2021-08-15 04:16] LABS: Glucose,Whole Blood 172 mg/dL (70-110)
[2021-08-15] MEDS: SODIUM CHLORIDE 0.9% 1,000 ML IV SCH ×2 (05:07→06:12)
[2021-08-15 05:17] LABS: Anisocytosis Slight; HCT 38.9 % (34.0-46.0); HGB 12.7 gm/dL (11.4-16.0); Hypochromasia Moderate; MCH 29.4 pg (25.0-35.0); MCHC 32.7 g/dL (31.0-37.0); MCV 89.9 fL (80.0-100.0); Mean Platelet Volume 11.8; Poikilocytosis Slight; RBC 4.33 m/uL (3.80-5.40); RDW 16.1 % (11.5-15.5); WBC 16.7 k/uL (3.8-10.6)
[2021-08-15 06:08] LABS: Glucose,Whole Blood 157 mg/dL (70-110)
[2021-08-15 06:10] LABS: ABG Base Excess -11.6 mmol/L; ABG HCO3 15 mmol/L (21-25); ABG Oxygen Saturation 99.7 % (94-97); ABG PCO2 29 mmHg (35-45); ABG PH 7.31 (7.35-7.45); ABG PO2 210 mmHg (83-108); ABG TCO2 16 mmol/L (19-24); Allen Test Performed? Yes
[2021-08-15 06:16] LABS: Anisocytosis (M) Present; Band Neutrophils % 27 %; Lymphocytes # (M) 1.34 k/uL (1.0-4.8); Metamyelocytes # (M) 0.17 k/uL (0); Metamyelocytes % 1 %; Neutrophils % (M) 61 %; Nucleated Red Blood Cells 0 /100 WBC (0-0); Ovalocytes Present; Platelet Count 99 k/uL (150-450); Poikilocytosis (M) Present; Polychromasia Present; Total Cells Counted 200
[2021-08-15 06:30] LABS: Albumin 2.7 g/dL (3.5-5.0); Phosphorus 8.9 mg/dL (2.5-4.5); Potassium 4.7 mmol/L (3.5-5.1); Total Protein 5.3 g/dL (6.3-8.2)
--- NOTE | 2021-08-15 06:53 | P.PN ---
Subjective Progress Note Date: 08/14/21 Principal diagnosis: Sepsis Patient is a 45-year-old female with recent diagnosis of MRSA AICD lead infection status post removal of the lead and the patient was receiving IV vancomycin at home presented to hospital with at-home cardiac arrest status post multiple resuscitation currently on the vent On today's evaluation that is 08/14/2021, the patient has been spiking fever however overall fever pattern has slightly decreased, the patient is currently on the vent and FiO2 is at 60% no significant purulent secretion through the ET or diarrhea reported by the nursing staff Objective - Vital Signs Vital signs: Vital Signs Temp 99.5 F 08/14/21 08:00 Pulse 54 L 08/14/21 09:30 Resp 32 H 08/14/21 09:30 BP 108/53 08/13/21 10:00 Pulse Ox 95 08/14/21 09:30 FiO2 100 08/14/21 10:43 Intake & Output 08/13/21 08/14/21 08/14/21 18:59 06:59 18:59 Intake Total 3469.224 2550.937 884.375 Output Total 0 60 0 Balance 3469.224 2490.937 884.375 Weight 134.4 kg Intake: IV 2540 1940 300 Dextrose 5% in Water 1, 1600 1800 300 000 ml @ 150 mls/hr IV . Q7H40M [facility] with Sodium Bicarb (1 Meq/ml) 150 ml Rx#:[id number] Sodium Chloride 0.9% 1, 940 140 000 ml @ 110 mls/hr IV . Q9H6M [facility] Rx#:[id number] Intake, IV Titration 929.224 610.937 584.375 Amount EPINEPHrine 4 mg In 250 Dextrose 5% in Water 250 ml @ 0.01 MCG/KG/MIN 4.5 mls/hr IV .Q24H [facility] Rx#: [id number] Norepinephrine 32 mg In 142.174 145.217 10.045 Sodium Chloride 0.9% 218 ml @ 0.05 MCG/KG/MIN 2. 822 mls/hr IV .Q24H [facility] Rx#:[id number] Piperacillin-Tazobactam 3 100 .375 gm In Sodium Chloride 0.9% 100 ml @ 25 mls/hr IVPB Q12HR [facility] Rx #:[id number] Sodium Chloride 0.9% 1, 300 000 ml @ 75 mls/hr IV . [id number] [facility] Rx#:[id number] Sodium Chloride 0.9% 500 30 ml 500 ml @ 999 mls/hr IV .Q31M [facility] Rx#:[id number] levETIRAcetam IV 500 mg 100 In Sodium Chloride 0.9% 100 ml @ 400 mls/hr IVPB Q12HR [facility] Rx#:[id number] propofoL 1,000 mg In 537.050 465.720 44.33 Empty Bag 1 bag @ 5 MCG/ KG/MIN 3.9 mls/hr IV . Q24H [facility] Rx#:[id number] Output: Urine 0 60 0 Other: Voiding Method Indwelling Catheter Indwelling Catheter ABP, PAP, CO, CI - Last Documented Arterial Blood Pressure 99/51 - Exam GENERAL DESCRIPTION: Middle-aged female intubated on the vent RESPIRATORY SYSTEM: Unlabored breathing , decreased breath sounds at bases HEART: S1 S2 regular rate and rhythm , ABDOMEN: Soft , no tenderness EXTREMITIES: No edema feet - Labs CBC & Chem 7: 08/15/21 04:15 08/14/21 00:59 Labs: Abnormal Lab Results - Last 24 Hours (Table) 08/13/21 08/13/21 08/13/21 Range/Units 12:44 18:28 18:55 WBC (3.8-10.6) k/uL RDW (11.5-15.5) % Plt Count (150-450) k/uL Neutrophils # (1.3-7.7) k/uL ABG pCO2 (35-45) mmHg ABG pO2 (83-108) mmHg ABG HCO3 (21-25) mmol/L Chloride 97 L (98-107) mmol/L Carbon Dioxide 20 L (22-30) mmol/L BUN 36 H (7-17) mg/dL Creatinine 3.71 H (0.52-1.04) mg/dL Glucose 284 H (74-99) mg/dL POC Glucose (mg/dL) 381 H 278 H (70-110) mg/dL Calcium 6.8 L (8.4-10.2) mg/dL AST (14-36) U/L ALT (4-34) U/L Ammonia (<30) umol/L 08/13/21 08/13/21 08/14/21 Range/Units 21:26 23:57 00:59 WBC 18.7 H (3.8-10.6) k/uL RDW 15.9 H (11.5-15.5) % Plt Count 115 L (150-450) k/uL Neutrophils # 16.6 H (1.3-7.7) k/uL ABG pCO2 (35-45) mmHg ABG pO2 (83-108) mmHg ABG HCO3 (21-25) mmol/L Chloride (98-107) mmol/L Carbon Dioxide (22-30) mmol/L BUN (7-17) mg/dL Creatinine (0.52-1.04) mg/dL Glucose (74-99) mg/dL POC Glucose (mg/dL) 200 H (70-110) mg/dL Calcium (8.4-10.2) mg/dL AST >21947 H (14-36) U/L ALT 6190 H (4-34) U/L Ammonia (<30) umol/L 08/14/21 08/14/21 08/14/21 Range/Units 00:59 00:59 05:45 WBC (3.8-10.6) k/uL RDW (11.5-15.5) % Plt Count (150-450) k/uL Neutrophils # (1.3-7.7) k/uL ABG pCO2 (35-45) mmHg ABG pO2 (83-108) mmHg ABG HCO3 (21-25) mmol/L Chloride 96 L (98-107) mmol/L Carbon Dioxide (22-30) mmol/L BUN 42 H (7-17) mg/dL Creatinine 4.49 H (0.52-1.04) mg/dL Glucose 225 H (74-99) mg/dL POC Glucose (mg/dL) 211 H (70-110) mg/dL Calcium 6.7 L (8.4-10.2) mg/dL AST >47635 H (14-36) U/L ALT 6208 H (4-34) U/L Ammonia (<30) umol/L 08/14/21 08/14/21 Range/Units 05:55 11:59 WBC (3.8-10.6) k/uL RDW (11.5-15.5) % Plt Count (150-450) k/uL Neutrophils # (1.3-7.7) k/uL ABG pCO2 33 L (35-45) mmHg ABG pO2 76 L (83-108) mmHg ABG HCO3 18 L (21-25) mmol/L Chloride (98-107) mmol/L Carbon Dioxide (22-30) mmol/L BUN (7-17) mg/dL Creatinine (0.52-1.04) mg/dL Glucose (74-99) mg/dL POC Glucose (mg/dL) (70-110) mg/dL Calcium (8.4-10.2) mg/dL AST (14-36) U/L ALT (4-34) U/L Ammonia 49 H (<30) umol/L Microbiology - Last 24 Hours (Table) 08/12/21 22:02 Gram Stain - Preliminary Sputum Sputum Culture - Preliminary Assessment and Plan (1) Infection of pacemaker lead wire Current Visit: No Status: Acute Code(s): T82.7XXA - INFECT/INFLM REACT D/T OTH CARDI/VASC DEV/IMPLNT/GRFT, INIT SNOMED Code(s): 332911280 (2) Pneumonia Current Visit: No Status: Acute Code(s): J18.9 - PNEUMONIA, UNSPECIFIED ORGANISM SNOMED Code(s): 647371969 Plan: 1patient with acute respiratory failure this patient who did have a cardiac arrest at home with significant ongoing and repeat cardiac arrest in the ER now with evidence of fever elevated white count likely combination of possible aspiration pneumonia this patient was currently undergoing treatment for AICD lead infection secondary to MRSA. 2 patient to continue with Zosyn for possible aspiration pneumonia while waiting for the sputum cultures to finalize 3patient to continue with daptomycin 6 mg/kg every 48 hour for underlying MRSA infection. Time with Patient: Less than 30
[2021-08-15 07:12] LABS: Calcium 6.1 mg/dL (8.4-10.2)
--- NOTE | 2021-08-15 07:49 | XR ---
EXAMINATION TYPE: XR chest 1V portable DATE OF EXAM: 08/15/2021 COMPARISON: 08/14/2021 INDICATION: Tube placement TECHNIQUE: Single frontal view of the chest is obtained. FINDINGS: The heart size is rounded prominent. The pulmonary vasculature is normal. There is silhouetting the left diaphragm. Correlate for atelectasis or small effusion. Endotracheal tube tip is above the jatinder. Nasogastric tube transverses the thorax. Pacemaker overlie s left chest. PICC line enters on the right tip in distal superior vena cava region. IMPRESSION: 1. Mild cardiomegaly. 2. Suggestion of infiltrate or small effusion on the left. 3. Multiple lines and catheters discussed above
[2021-08-15] MEDS ORDERED: MANNITOL 20% IV ONE (08:00)
[2021-08-15] MEDS ORDERED: CALCIUM GLUCONATE IN NACL 1 GM in SALINE 1 100ML.BAG IVPB ONE (08:07)
[2021-08-15 08:31] VITALS: TEMP 98.2
--- NOTE | 2021-08-15 08:47 | P.PN ---
Subjective This is a 45 year old female with a past medical history significant for non- ischemic cardiomyopathy with AICD implantation, paroxysmal atrial fibrillation on anticoagulation with Eliquis, diabetes, hypertension, hyperlipidemia, multiple sclerosis, and cardiac sarcoidosis, recent admission to the hospital 07/14-07/26/2021 for MRSA bacteremia with lead vegetation. Patient follows in the office with Dr. Hinojosa. Patient was recently hospitalized from 07/14- 07/26/2021 for sepsis, she was found to have MRSA bacteremia, TEODORO revealed atrial lead vegetation. On 07/21/2021 Patient underwent extraction of the right atrial lead, LV lead and RV ICD lead. She then had implantation of a new RV pacing lead in the RV apex, and Implantation of single-chamber pacemaker generator in the pocket. She was discharged home with a PICC line for 6 week course of an tibiotics. Family intubated and sedated and history of supply the chart. Per patient's apparently they were getting ready to have sexual intercourse and has been found patient to be unresponsive. EMS was called and patient was having shallow respirations with low oxygen saturation and weak pulses. Patient decompensated to cardiac arrest and CPR was performed and apparently found to be in V. fib and cardioverted. She remained apneic and unresponsive and difficulty removing patient from the house secondary to hoarding. On removing patient from house she was noted to have an additional cardiac arrest which may have resulted from inability to bag patient and apparently improved with airway placement. EKG shows intermittent ventricular pacing, sinus rhythm with what appears to be intermittent idioventricular rhythm. Creatinine initially 1.0 however elevated at 2.59 us morning, severe lactic acidosis up to 19 this morning, metabolic acidosis by ABG, blood cell count 27.8, and having intermittent fevers up to 102.8. Patient intubated with 50% FiO2 and 5 of PEEP and is on Epinephrine drip. DIAGNOSTICS * Most recent echocardiogram TEODORO- 07/19/2021 #1. Mobile lesion noted on the probably atrial lead, suggestive of vegetation #2. 3+ mitral regurgitation #3. Severe global left ventricular dysfunction. #4. Left atrial enlargement. #5. No clot in the left atrial appendage. #6. No evidence of PFO * 2D Echocardiogram 06/2021 revealed EF of 3540%, dilated LV, inferiorbasal akinesis * Patient underwent cardiac catheterization in November 2020 revealing normal coronary arteries * 08/14 Patient seen and examined. Patient remains intubated and sedated. Change from epinephrine drip to norepinephrine and currently blood pressure in the 100s over 50s. Unfortunately liver enzymes continue to be increased from yesterday, this morning pending. Patient not making much of any urine with creatinine going up to 4.3. Discussed with at bedside. Apparently patient had fairly acute onset of loss of consciousness concerning for cardiac source of initial cardiac arrest. Currently remains intermittently ventricular paced. Suspicion of possible aspiration pneumonitis. 08/15 Patient remains intubated. No meaningful neurologic recovery and therefore decision has been made to make patient comfort care. PHYSICAL EXAM: VITAL SIGNS: Reviewed. GENERAL: Well-developed, obese, intubated HEENT: Head is normocephalic. Pupils are equal, round. Sclerae anicteric. Mucous membranes of the mouth are moist. Neck supple. No JVD LUNGS: Respirations even and unlabored. Lungs diminished in the bases. HEART: Regular rate and rhythm. S1 and S2 heard. Systolic murmur at apex ABDOMEN: Soft. Nondistended. Nontender. EXTREMITIES: Normal range of motion. No clubbing or cyanosis. Peripheral pulses intact. No lower extremity edema NEUROLOGIC: Intubated ASSESSMENT: Cardiac arrest with V. fib arrest status post defibrillation in the field Prolonged downtime and severe lactic acidosis Shock, questionable component of septic shock with fevers and increased white b lood cell count, questionable aspiration pneumonia Chronic heart failure with reduced ejection fraction Recent admission for MRSA bacteremia, AICD vegetation Status post extraction of the right atrial lead, extraction of the LV lead, extraction of the RV ICD lead, and implantation of a new RV pacing lead in the RV apex, using the right atrial lead as an access and implantation of single-chamber pacemaker generator in the pocket on 07/21/2021 Nonischemic cardiomyopathy with previous AICD Paroxysmal atrial fibrillation on anticoagulation with Eliquis Cardiac sarcoidosis Hypertension Hyperlipidemia Diabetes mellitus, type 2 PLAN: Patient without any meaningful neurologic recovery and has had a number of issues over the past few months. Patient appears appropriate for comfort care. Please call with any questions. Objective - Vital Signs Vital signs: Vital Signs Temp 98.2 F 08/15/21 08:00 Pulse 49 L 08/15/21 08:00 Resp 30 H 08/15/21 08:00 BP 108/53 08/15/21 08:00 Pulse Ox 100 08/15/21 08:00 FiO2 60 08/15/21 08:00 Intake & Output 08/14/21 08/15/21 08/15/21 18:59 06:59 18:59 Intake Total 4974.461 2016.426 150 Output Total 512 7 0 Balance 5310.073 5559.426 150 Weight 138 kg Intake: IV 945 950 150 ACETAMINOPHEN IV (For NPO 100 ) 1,000 mg In Empty Bag 1 bag @ 400 mls/hr IVPB ONCE STA Rx#:[id number] Dextrose 5% in Water 1, 300 000 ml @ 150 mls/hr IV . Q7H40M [facility] with Sodium Bicarb (1 Meq/ml) 150 ml Rx#:[id number] Mannitol 20% Pmx 168 ml 170 In Empty Bag 1 bag @ 168 mls/hr IV ONCE ONE Rx#: [id number] Piperacillin-Tazobactam 3 100 .375 gm In Sodium Chloride 0.9% 100 ml @ 25 mls/hr IVPB Q12HR [facility] Rx #:[id number] Sodium Chloride 0.9% 1, 375 750 150 000 ml @ 75 mls/hr IV . [id number] [facility] Rx#:[id number] levETIRAcetam IV 500 mg 100 In Sodium Chloride 0.9% 100 ml @ 400 mls/hr IVPB Q12HR [facility] Rx#:[id number] Intake, IV Titration 720.062 90.426 Amount Norepinephrine 32 mg In 70.732 90.426 Sodium Chloride 0.9% 218 ml @ 0.05 MCG/KG/MIN 2. 822 mls/hr IV .Q24H [facility] Rx#:[id number] Piperacillin-Tazobactam 3 100 .375 gm In Sodium Chloride 0.9% 100 ml @ 25 mls/hr IVPB Q12HR [facility] Rx #:[id number] Sodium Chloride 0.9% 1, 375 000 ml @ 75 mls/hr IV . [id number] [facility] Rx#:[id number] Sodium Chloride 0.9% 500 30 ml 500 ml @ 999 mls/hr IV .Q31M [facility] Rx#:[id number] levETIRAcetam IV 500 mg 100 In Sodium Chloride 0.9% 100 ml @ 400 mls/hr IVPB Q12HR [facility] Rx#:[id number] propofoL 1,000 mg In 44.33 Empty Bag 1 bag @ 5 MCG/ KG/MIN 3.9 mls/hr IV . Q24H [facility] Rx#:[id number] Output: Urine 12 7 0 Hemodialysis 500 Other: Voiding Method Indwelling Catheter Indwelling Catheter ABP, PAP, CO, CI - Last Documented Arterial Blood Pressure 115/55 - Labs CBC & Chem 7: 08/15/21 04:15 08/15/21 04:15 Labs: Abnormal Lab Results - Last 24 Hours (Table) 08/14/21 08/14/21 08/14/21 Range/Units 00:59 11:59 11:59 WBC (3.8-10.6) k/uL RDW (11.5-15.5) % Plt Count (150-450) k/uL Neutrophils # (Manual) (1.3-7.7) k/uL Metamyelocytes # (Man) (0) k/uL ABG pH (7.35-7.45) ABG pCO2 (35-45) mmHg ABG pO2 (83-108) mmHg ABG HCO3 (21-25) mmol/L ABG Total CO2 (19-24) mmol/L ABG O2 Saturation (94-97) % ABG Lactic Acid (0.5-1.6) mmol/L Chloride (98-107) mmol/L Carbon Dioxide (22-30) mmol/L BUN (7-17) mg/dL Creatinine (0.52-1.04) mg/dL Glucose (74-99) mg/dL POC Glucose (mg/dL) (70-110) mg/dL Plasma Lactic Acid Raji 14.6 H* (0.7-2.0) mmol/L Calcium (8.4-10.2) mg/dL Phosphorus (2.5-4.5) mg/dL Total Bilirubin (0.2-1.3) mg/dL AST >32758 H (14-36) U/L ALT 6208 H (4-34) U/L Alkaline Phosphatase (38-126) U/L Ammonia 49 H (<30) umol/L Total Protein (6.3-8.2) g/dL Albumin (3.5-5.0) g/dL 08/14/21 08/14/21 08/14/21 Range/Units 13:04 16:56 17:59 WBC (3.8-10.6) k/uL RDW (11.5-15.5) % Plt Count (150-450) k/uL Neutrophils # (Manual) (1.3-7.7) k/uL Metamyelocytes # (Man) (0) k/uL ABG pH (7.35-7.45) ABG pCO2 (35-45) mmHg ABG pO2 (83-108) mmHg ABG HCO3 (21-25) mmol/L ABG Total CO2 (19-24) mmol/L ABG O2 Saturation (94-97) % ABG Lactic Acid 11.9 H* (0.5-1.6) mmol/L Chloride (98-107) mmol/L Carbon Dioxide (22-30) mmol/L BUN (7-17) mg/dL Creatinine (0.52-1.04) mg/dL Glucose (74-99) mg/dL POC Glucose (mg/dL) 145 H 148 H (70-110) mg/dL Plasma Lactic Acid Raji (0.7-2.0) mmol/L Calcium (8.4-10.2) mg/dL Phosphorus (2.5-4.5) mg/dL Total Bilirubin (0.2-1.3) mg/dL AST (14-36) U/L ALT (4-34) U/L Alkaline Phosphatase (38-126) U/L Ammonia (<30) umol/L Total Protein (6.3-8.2) g/dL Albumin (3.5-5.0) g/dL 08/14/21 08/15/21 08/15/21 Range/Units 23:45 01:11 04:14 WBC (3.8-10.6) k/uL RDW (11.5-15.5) % Plt Count (150-450) k/uL Neutrophils # (Manual) (1.3-7.7) k/uL Metamyelocytes # (Man) (0) k/uL ABG pH (7.35-7.45) ABG pCO2 (35-45) mmHg ABG pO2 (83-108) mmHg ABG HCO3 (21-25) mmol/L ABG Total CO2 (19-24) mmol/L ABG O2 Saturation (94-97) % ABG Lactic Acid (0.5-1.6) mmol/L Chloride (98-107) mmol/L Carbon Dioxide (22-30) mmol/L BUN (7-17) mg/dL Creatinine (0.52-1.04) mg/dL Glucose (74-99) mg/dL POC Glucose (mg/dL) 125 H 132 H 172 H (70-110) mg/dL Plasma Lactic Acid Raji (0.7-2.0) mmol/L Calcium (8.4-10.2) mg/dL Phosphorus (2.5-4.5) mg/dL Total Bilirubin (0.2-1.3) mg/dL AST (14-36) U/L ALT (4-34) U/L Alkaline Phosphatase (38-126) U/L Ammonia (<30) umol/L Total Protein (6.3-8.2) g/dL Albumin (3.5-5.0) g/dL 08/15/21 08/15/21 08/15/21 Range/Units 04:15 04:15 06:05 WBC 16.7 H (3.8-10.6) k/uL RDW 16.1 H (11.5-15.5) % Plt Count 99 L (150-450) k/uL Neutrophils # (Manual) 14.60 H (1.3-7.7) k/uL Metamyelocytes # (Man) 0.17 H (0) k/uL ABG pH 7.31 L (7.35-7.45) ABG pCO2 29 L (35-45) mmHg ABG pO2 210 H (83-108) mmHg ABG HCO3 15 L (21-25) mmol/L ABG Total CO2 16 L (19-24) mmol/L ABG O2 Saturation 99.7 H (94-97) % ABG Lactic Acid (0.5-1.6) mmol/L Chloride 96 L (98-107) mmol/L Carbon Dioxide 14 L (22-30) mmol/L BUN 46 H (7-17) mg/dL Creatinine 5.94 H (0.52-1.04) mg/dL Glucose 164 H (74-99) mg/dL POC Glucose (mg/dL) (70-110) mg/dL Plasma Lactic Acid Raji (0.7-2.0) mmol/L Calcium 6.1 L* (8.4-10.2) mg/dL Phosphorus 8.9 H (2.5-4.5) mg/dL Total Bilirubin 4.0 H (0.2-1.3) mg/dL AST 9585 H (14-36) U/L ALT 4720 H (4-34) U/L Alkaline Phosphatase 135 H (38-126) U/L Ammonia (<30) umol/L Total Protein 5.3 L (6.3-8.2) g/dL Albumin 2.7 L (3.5-5.0) g/dL 08/15/21 Range/Units 06:06 WBC (3.8-10.6) k/uL RDW (11.5-15.5) % Plt Count (150-450) k/uL Neutrophils # (Manual) (1.3-7.7) k/uL Metamyelocytes # (Man) (0) k/uL ABG pH (7.35-7.45) ABG pCO2 (35-45) mmHg ABG pO2 (83-108) mmHg ABG HCO3 (21-25) mmol/L ABG Total CO2 (19-24) mmol/L ABG O2 Saturation (94-97) % ABG Lactic Acid (0.5-1.6) mmol/L Chloride (98-107) mmol/L Carbon Dioxide (22-30) mmol/L BUN (7-17) mg/dL Creatinine (0.52-1.04) mg/dL Glucose (74-99) mg/dL POC Glucose (mg/dL) 157 H (70-110) mg/dL Plasma Lactic Acid Raji (0.7-2.0) mmol/L Calcium (8.4-10.2) mg/dL Phosphorus (2.5-4.5) mg/dL Total Bilirubin (0.2-1.3) mg/dL AST (14-36) U/L ALT (4-34) U/L Alkaline Phosphatase (38-126) U/L Ammonia (<30) umol/L Total Protein (6.3-8.2) g/dL Albumin (3.5-5.0) g/dL Microbiology - Last 24 Hours (Table) 07/05/22 15:49 Blood Culture - Preliminary Blood No Growth after 24 hours
--- NOTE | 2021-08-15 09:34 | P.PN ---
Subjective Patient is seen in follow-up for acute kidney injury. Oliguric. Started on hemodialysis 08/14/2021. On vasopressor support. Intubated. Vital signs are stable. On vasopressor support. HEENT: Intubated. LUNGS: Breath sounds decreased. HEART: Rate and Rhythm are regular. ABDOMEN: Soft, obese. EXTREMITITES: Trace edema. Objective - Vital Signs Vital signs: Vital Signs Temp 98.2 F 08/15/21 08:00 Pulse 49 L 08/15/21 08:00 Resp 30 H 08/15/21 08:00 BP 108/53 08/15/21 08:00 Pulse Ox 100 08/15/21 08:00 FiO2 60 08/15/21 08:00 Intake & Output 08/14/21 08/15/21 08/15/21 18:59 06:59 18:59 Intake Total 2747.741 6131.426 150 Output Total 512 7 0 Balance 0078.295 9073.426 150 Weight 138 kg Intake: IV 945 950 150 ACETAMINOPHEN IV (For NPO 100 ) 1,000 mg In Empty Bag 1 bag @ 400 mls/hr IVPB ONCE STA Rx#:[id number] Dextrose 5% in Water 1, 300 000 ml @ 150 mls/hr IV . Q7H40M [facility] with Sodium Bicarb (1 Meq/ml) 150 ml Rx#:[id number] Mannitol 20% Pmx 168 ml 170 In Empty Bag 1 bag @ 168 mls/hr IV ONCE ONE Rx#: [id number] Piperacillin-Tazobactam 3 100 .375 gm In Sodium Chloride 0.9% 100 ml @ 25 mls/hr IVPB Q12HR [facility] Rx #:[id number] Sodium Chloride 0.9% 1, 375 750 150 000 ml @ 75 mls/hr IV . [id number] [facility] Rx#:[id number] levETIRAcetam IV 500 mg 100 In Sodium Chloride 0.9% 100 ml @ 400 mls/hr IVPB Q12HR [facility] Rx#:[id number] Intake, IV Titration 720.062 90.426 Amount Norepinephrine 32 mg In 70.732 90.426 Sodium Chloride 0.9% 218 ml @ 0.05 MCG/KG/MIN 2. 822 mls/hr IV .Q24H [facility] Rx#:[id number] Piperacillin-Tazobactam 3 100 .375 gm In Sodium Chloride 0.9% 100 ml @ 25 mls/hr IVPB Q12HR [facility] Rx #:[id number] Sodium Chloride 0.9% 1, 375 000 ml @ 75 mls/hr IV . [id number] [facility] Rx#:[id number] Sodium Chloride 0.9% 500 30 ml 500 ml @ 999 mls/hr IV .Q31M [facility] Rx#:[id number] levETIRAcetam IV 500 mg 100 In Sodium Chloride 0.9% 100 ml @ 400 mls/hr IVPB Q12HR [facility] Rx#:[id number] propofoL 1,000 mg In 44.33 Empty Bag 1 bag @ 5 MCG/ KG/MIN 3.9 mls/hr IV . Q24H [facility] Rx#:[id number] Output: Urine 12 7 0 Hemodialysis 500 Other: Voiding Method Indwelling Catheter Indwelling Catheter ABP, PAP, CO, CI - Last Documented Arterial Blood Pressure 115/55 - Labs CBC & Chem 7: 08/15/21 04:15 08/15/21 04:15 Labs: Abnormal Lab Results - Last 24 Hours (Table) 08/14/21 08/14/21 08/14/21 Range/Units 00:59 11:59 11:59 WBC (3.8-10.6) k/uL RDW (11.5-15.5) % Plt Count (150-450) k/uL Neutrophils # (Manual) (1.3-7.7) k/uL Metamyelocytes # (Man) (0) k/uL ABG pH (7.35-7.45) ABG pCO2 (35-45) mmHg ABG pO2 (83-108) mmHg ABG HCO3 (21-25) mmol/L ABG Total CO2 (19-24) mmol/L ABG O2 Saturation (94-97) % ABG Lactic Acid (0.5-1.6) mmol/L Chloride (98-107) mmol/L Carbon Dioxide (22-30) mmol/L BUN (7-17) mg/dL Creatinine (0.52-1.04) mg/dL Glucose (74-99) mg/dL POC Glucose (mg/dL) (70-110) mg/dL Plasma Lactic Acid Raji 14.6 H* (0.7-2.0) mmol/L Calcium (8.4-10.2) mg/dL Phosphorus (2.5-4.5) mg/dL Total Bilirubin (0.2-1.3) mg/dL AST >31966 H (14-36) U/L ALT 6208 H (4-34) U/L Alkaline Phosphatase (38-126) U/L Ammonia 49 H (<30) umol/L Total Protein (6.3-8.2) g/dL Albumin (3.5-5.0) g/dL 08/14/21 08/14/21 08/14/21 Range/Units 13:04 16:56 17:59 WBC (3.8-10.6) k/uL RDW (11.5-15.5) % Plt Count (150-450) k/uL Neutrophils # (Manual) (1.3-7.7) k/uL Metamyelocytes # (Man) (0) k/uL ABG pH (7.35-7.45) ABG pCO2 (35-45) mmHg ABG pO2 (83-108) mmHg ABG HCO3 (21-25) mmol/L ABG Total CO2 (19-24) mmol/L ABG O2 Saturation (94-97) % ABG Lactic Acid 11.9 H* (0.5-1.6) mmol/L Chloride (98-107) mmol/L Carbon Dioxide (22-30) mmol/L BUN (7-17) mg/dL Creatinine (0.52-1.04) mg/dL Glucose (74-99) mg/dL POC Glucose (mg/dL) 145 H 148 H (70-110) mg/dL Plasma Lactic Acid Raji (0.7-2.0) mmol/L Calcium (8.4-10.2) mg/dL Phosphorus (2.5-4.5) mg/dL Total Bilirubin (0.2-1.3) mg/dL AST (14-36) U/L ALT (4-34) U/L Alkaline Phosphatase (38-126) U/L Ammonia (<30) umol/L Total Protein (6.3-8.2) g/dL Albumin (3.5-5.0) g/dL 08/14/21 08/15/21 08/15/21 Range/Units 23:45 01:11 04:14 WBC (3.8-10.6) k/uL RDW (11.5-15.5) % Plt Count (150-450) k/uL Neutrophils # (Manual) (1.3-7.7) k/uL Metamyelocytes # (Man) (0) k/uL ABG pH (7.35-7.45) ABG pCO2 (35-45) mmHg ABG pO2 (83-108) mmHg ABG HCO3 (21-25) mmol/L ABG Total CO2 (19-24) mmol/L ABG O2 Saturation (94-97) % ABG Lactic Acid (0.5-1.6) mmol/L Chloride (98-107) mmol/L Carbon Dioxide (22-30) mmol/L BUN (7-17) mg/dL Creatinine (0.52-1.04) mg/dL Glucose (74-99) mg/dL POC Glucose (mg/dL) 125 H 132 H 172 H (70-110) mg/dL Plasma Lactic Acid Raji (0.7-2.0) mmol/L Calcium (8.4-10.2) mg/dL Phosphorus (2.5-4.5) mg/dL Total Bilirubin (0.2-1.3) mg/dL AST (14-36) U/L ALT (4-34) U/L Alkaline Phosphatase (38-126) U/L Ammonia (<30) umol/L Total Protein (6.3-8.2) g/dL Albumin (3.5-5.0) g/dL 08/15/21 08/15/21 08/15/21 Range/Units 04:15 04:15 06:05 WBC 16.7 H (3.8-10.6) k/uL RDW 16.1 H (11.5-15.5) % Plt Count 99 L (150-450) k/uL Neutrophils # (Manual) 14.60 H (1.3-7.7) k/uL Metamyelocytes # (Man) 0.17 H (0) k/uL ABG pH 7.31 L (7.35-7.45) ABG pCO2 29 L (35-45) mmHg ABG pO2 210 H (83-108) mmHg ABG HCO3 15 L (21-25) mmol/L ABG Total CO2 16 L (19-24) mmol/L ABG O2 Saturation 99.7 H (94-97) % ABG Lactic Acid (0.5-1.6) mmol/L Chloride 96 L (98-107) mmol/L Carbon Dioxide 14 L (22-30) mmol/L BUN 46 H (7-17) mg/dL Creatinine 5.94 H (0.52-1.04) mg/dL Glucose 164 H (74-99) mg/dL POC Glucose (mg/dL) (70-110) mg/dL Plasma Lactic Acid Raji (0.7-2.0) mmol/L Calcium 6.1 L* (8.4-10.2) mg/dL Phosphorus 8.9 H (2.5-4.5) mg/dL Total Bilirubin 4.0 H (0.2-1.3) mg/dL AST 9585 H (14-36) U/L ALT 4720 H (4-34) U/L Alkaline Phosphatase 135 H (38-126) U/L Ammonia (<30) umol/L Total Protein 5.3 L (6.3-8.2) g/dL Albumin 2.7 L (3.5-5.0) g/dL 08/15/21 Range/Units 06:06 WBC (3.8-10.6) k/uL RDW (11.5-15.5) % Plt Count (150-450) k/uL Neutrophils # (Manual) (1.3-7.7) k/uL Metamyelocytes # (Man) (0) k/uL ABG pH (7.35-7.45) ABG pCO2 (35-45) mmHg ABG pO2 (83-108) mmHg ABG HCO3 (21-25) mmol/L ABG Total CO2 (19-24) mmol/L ABG O2 Saturation (94-97) % ABG Lactic Acid (0.5-1.6) mmol/L Chloride (98-107) mmol/L Carbon Dioxide (22-30) mmol/L BUN (7-17) mg/dL Creatinine (0.52-1.04) mg/dL Glucose (74-99) mg/dL POC Glucose (mg/dL) 157 H (70-110) mg/dL Plasma Lactic Acid Raji (0.7-2.0) mmol/L Calcium (8.4-10.2) mg/dL Phosphorus (2.5-4.5) mg/dL Total Bilirubin (0.2-1.3) mg/dL AST (14-36) U/L ALT (4-34) U/L Alkaline Phosphatase (38-126) U/L Ammonia (<30) umol/L Total Protein (6.3-8.2) g/dL Albumin (3.5-5.0) g/dL Microbiology - Last 24 Hours (Table) 08/13/21 15:49 Blood Culture - Preliminary Blood No Growth after 24 hours Assessment and Plan Plan: Assessment: 1. Acute kidney injury secondary to ATN secondary to cardiac arrest. Baseline creatinine near 1 and is up to 5.94 today. Oliguric. Started on hemodialysis 08/14/2021. 2. Status post cardiac arrest on 08/12/2021. Patient noted to have prolonged downtime. 3. Metabolic acidosis secondary to acute kidney injury and metformin. 4. Shock liver. 5. Diabetes mellitus. 6. History of nonischemic cardiomyopathy with AICD, cardiac sarcoid as well as A. fib. 7. Shock maintained on vasopressor support. ?Cardiogenic versus septic. 8. Anoxic brain injury. Neurology following. 9. Hyperphosphatemia secondary to acute kidney injury. Plan: Plan is to proceed with comfort measures which is appropriate. Hold off on hemodialysis today. Please call with any questions or concerns. Case discussed with the nurse and neurologist.
[2021-08-15] MEDS: CHLORHEXIDINE GLUCONATE 15 ML CUP MUCOUS MEM SCH (10:47)
[2021-08-15] MEDS: LACTULOSE 20 GM/30 ML CUP PO SCH (10:49)
[2021-08-15] MEDS: levETIRAcetam IV 500 MG in SODIUM CHLORIDE 0.9% 100 ML IVPB SCH (10:49)
[2021-08-15] MEDS: PIPERACILLIN-TAZOBACTAM 3.375 GM in SODIUM CHLORIDE 0.9% 100 ML IVPB SCH (10:53)
[2021-08-15 11:14] VITALS: PULSE 49; RESP 32
--- NOTE | 2021-08-15 11:21 | CA ---
Transthoracic Echo Report Name: Bernice Tran Age: 45 Gender: F : 1975 Exam Date: 08/14/2021 10:26 Exam Location: [place] [facility] Ht (in): Wt (lb): Ordering Physician: Louis Pacheco DO ([email or web address]) Attending/Referring Phys: Cryptanalyst Debi Sutton, CHRIS Procedure CPT: Indications: re: LV function, cardiac arrest Cardiac Hx: Technical Quality: Very technically difficult study Contrast 1: Lumason Total Dose (mL): 3 Contrast 2: Total Dose (mL): MEASUREMENTS (Male / Female) Normal Values FINDINGS Left Ventricle Severely reduced global left ventricular systolic function. Left ventricular ejection fraction is estimated at 30-35 %. Right Ventricle Right ventricle not well visualized. Right Atrium Right atrium not well visualized. Left Atrium Left atrium not well visualized. Mitral Valve Mitral valve not well visualized. Aortic Valve Aortic valve not well visualized. Tricuspid Valve Tricuspid valve not well visualized. Pulmonic Valve Pulmonic valve not well visualized. Pericardium Aorta Aortic root and proximal ascending aorta not well visualized. CONCLUSIONS Impaired LV function was EF between 30-35% Previewed by: Dr. Jono Lanier MD (Electronically Signed) Final Date: 15 August 2021 11:20
--- NOTE | 2021-08-15 11:40 | P.PN ---
Subjective Progress Note Date: 08/15/21 The patient is seen at bedside and has not made any improvement. She has been off sedation since yesterday AM. She received dialysis yesterday and after that we proceeded with Mannitol dose of 168mg (low dose because of her kidney issues. The family wants to withdrawal care. She was started on lactulose because of slight elevated ammonia. Objective - Vital Signs Vital signs: Vital Signs Temp 98.2 F 08/15/21 08:00 Pulse 49 L 08/15/21 11:00 Resp 32 H 08/15/21 11:00 BP 108/53 08/15/21 08:00 Pulse Ox 99 08/15/21 11:00 FiO2 50 08/15/21 11:00 Intake & Output 08/14/21 08/15/21 08/15/21 18:59 06:59 18:59 Intake Total 4935.526 4996.426 675 Output Total 512 7 0 Balance 6768.134 4027.426 675 Weight 138 kg Intake: IV 945 950 675 ACETAMINOPHEN IV (For NPO 100 ) 1,000 mg In Empty Bag 1 bag @ 400 mls/hr IVPB ONCE STA Rx#:[id number] Calcium Gluconate in NaCl 100 1 gm In Saline 1 100ml. bag @ 100 mls/hr IVPB ONCE ONE Rx#:[id number] Dextrose 5% in Water 1, 300 000 ml @ 150 mls/hr IV . Q7H40M [facility] with Sodium Bicarb (1 Meq/ml) 150 ml Rx#:[id number] Mannitol 20% Pmx 168 ml 170 In Empty Bag 1 bag @ 168 mls/hr IV ONCE ONE Rx#: [id number] Piperacillin-Tazobactam 3 100 100 .375 gm In Sodium Chloride 0.9% 100 ml @ 25 mls/hr IVPB Q12HR [facility] Rx #:[id number] Sodium Chloride 0.9% 1, 375 750 375 000 ml @ 75 mls/hr IV . [id number] [facility] Rx#:[id number] levETIRAcetam IV 500 mg 100 100 In Sodium Chloride 0.9% 100 ml @ 400 mls/hr IVPB Q12HR [facility] Rx#:[id number] Intake, IV Titration 720.062 90.426 Amount Norepinephrine 32 mg In 70.732 90.426 Sodium Chloride 0.9% 218 ml @ 0.05 MCG/KG/MIN 2. 822 mls/hr IV .Q24H [facility] Rx#:[id number] Piperacillin-Tazobactam 3 100 .375 gm In Sodium Chloride 0.9% 100 ml @ 25 mls/hr IVPB Q12HR [facility] Rx #:[id number] Sodium Chloride 0.9% 1, 375 000 ml @ 75 mls/hr IV . [id number] [facility] Rx#:[id number] Sodium Chloride 0.9% 500 30 ml 500 ml @ 999 mls/hr IV .Q31M [facility] Rx#:[id number] levETIRAcetam IV 500 mg 100 In Sodium Chloride 0.9% 100 ml @ 400 mls/hr IVPB Q12HR [facility] Rx#:[id number] propofoL 1,000 mg In 44.33 Empty Bag 1 bag @ 5 MCG/ KG/MIN 3.9 mls/hr IV . Q24H [facility] Rx#:[id number] Output: Urine 12 7 0 Hemodialysis 500 Other: Voiding Method Indwelling Catheter Indwelling Catheter Indwelling Catheter ABP, PAP, CO, CI - Last Documented Arterial Blood Pressure 100/50 - Exam GENERAL: The patient is lying in bed and does not appear in acute distress. HENT: Has scleral icterus. LUNG: . Intubated on ventilator. NEUROLOGICAL: Limited because of her condition. Is off sedation since 9ish AM yesterday. Higher mental function: Is comatose GCS 3 (E1, VT1, M1) Cranial nerves: I had to manually open her eyes and right pupil is 4mm while left is 5mm and non-reactive to light. -ve corneal reflex bilaterally. -ve occulocpehalic. No facial weakness. No gag reflex. Is NOT breathing over the vent and was set at AC 30 and was taken down to 1 and not breathing over vent.. Motor: The strength is unable to assess but to painful stimuli not withdrawing. Cerebellum: Unable to assess. Sensation: Unable to assess light touch. But to painful stimuli not withdrawing. Some of the workup in our facility during this admission consisted of: Her liver function is worsening and the before meals currently is more thing that 15,000 ALT is 6198. Ammonia 49 EEG on 08/13/2021 is abnormal. The back of slowing suggestive of severe encephalopathy. There is no focal slowing, epileptiform discharges or seizure on the EEG. - Labs CBC & Chem 7: 08/15/21 04:15 08/15/21 04:15 Labs: Abnormal Lab Results - Last 24 Hours (Table) 08/14/21 08/14/21 08/14/21 Range/Units 00:59 11:59 11:59 WBC (3.8-10.6) k/uL RDW (11.5-15.5) % Plt Count (150-450) k/uL Neutrophils # (Manual) (1.3-7.7) k/uL Metamyelocytes # (Man) (0) k/uL ABG pH (7.35-7.45) ABG pCO2 (35-45) mmHg ABG pO2 (83-108) mmHg ABG HCO3 (21-25) mmol/L ABG Total CO2 (19-24) mmol/L ABG O2 Saturation (94-97) % ABG Lactic Acid (0.5-1.6) mmol/L Chloride (98-107) mmol/L Carbon Dioxide (22-30) mmol/L BUN (7-17) mg/dL Creatinine (0.52-1.04) mg/dL Glucose (74-99) mg/dL POC Glucose (mg/dL) (70-110) mg/dL Plasma Lactic Acid Raji 14.6 H* (0.7-2.0) mmol/L Calcium (8.4-10.2) mg/dL Phosphorus (2.5-4.5) mg/dL Total Bilirubin (0.2-1.3) mg/dL AST >16205 H (14-36) U/L ALT 6208 H (4-34) U/L Alkaline Phosphatase (38-126) U/L Ammonia 49 H (<30) umol/L Total Protein (6.3-8.2) g/dL Albumin (3.5-5.0) g/dL 08/14/21 08/14/21 08/14/21 Range/Units 13:04 16:56 17:59 WBC (3.8-10.6) k/uL RDW (11.5-15.5) % Plt Count (150-450) k/uL Neutrophils # (Manual) (1.3-7.7) k/uL Metamyelocytes # (Man) (0) k/uL ABG pH (7.35-7.45) ABG pCO2 (35-45) mmHg ABG pO2 (83-108) mmHg ABG HCO3 (21-25) mmol/L ABG Total CO2 (19-24) mmol/L ABG O2 Saturation (94-97) % ABG Lactic Acid 11.9 H* (0.5-1.6) mmol/L Chloride (98-107) mmol/L Carbon Dioxide (22-30) mmol/L BUN (7-17) mg/dL Creatinine (0.52-1.04) mg/dL Glucose (74-99) mg/dL POC Glucose (mg/dL) 145 H 148 H (70-110) mg/dL Plasma Lactic Acid Raji (0.7-2.0) mmol/L Calcium (8.4-10.2) mg/dL Phosphorus (2.5-4.5) mg/dL Total Bilirubin (0.2-1.3) mg/dL AST (14-36) U/L ALT (4-34) U/L Alkaline Phosphatase (38-126) U/L Ammonia (<30) umol/L Total Protein (6.3-8.2) g/dL Albumin (3.5-5.0) g/dL 08/14/21 08/15/21 08/15/21 Range/Units 23:45 01:11 04:14 WBC (3.8-10.6) k/uL RDW (11.5-15.5) % Plt Count (150-450) k/uL Neutrophils # (Manual) (1.3-7.7) k/uL Metamyelocytes # (Man) (0) k/uL ABG pH (7.35-7.45) ABG pCO2 (35-45) mmHg ABG pO2 (83-108) mmHg ABG HCO3 (21-25) mmol/L ABG Total CO2 (19-24) mmol/L ABG O2 Saturation (94-97) % ABG Lactic Acid (0.5-1.6) mmol/L Chloride (98-107) mmol/L Carbon Dioxide (22-30) mmol/L BUN (7-17) mg/dL Creatinine (0.52-1.04) mg/dL Glucose (74-99) mg/dL POC Glucose (mg/dL) 125 H 132 H 172 H (70-110) mg/dL Plasma Lactic Acid Raji (0.7-2.0) mmol/L Calcium (8.4-10.2) mg/dL Phosphorus (2.5-4.5) mg/dL Total Bilirubin (0.2-1.3) mg/dL AST (14-36) U/L ALT (4-34) U/L Alkaline Phosphatase (38-126) U/L Ammonia (<30) umol/L Total Protein (6.3-8.2) g/dL Albumin (3.5-5.0) g/dL 08/15/21 08/15/21 08/15/21 Range/Units 04:15 04:15 06:05 WBC 16.7 H (3.8-10.6) k/uL RDW 16.1 H (11.5-15.5) % Plt Count 99 L (150-450) k/uL Neutrophils # (Manual) 14.60 H (1.3-7.7) k/uL Metamyelocytes # (Man) 0.17 H (0) k/uL ABG pH 7.31 L (7.35-7.45) ABG pCO2 29 L (35-45) mmHg ABG pO2 210 H (83-108) mmHg ABG HCO3 15 L (21-25) mmol/L ABG Total CO2 16 L (19-24) mmol/L ABG O2 Saturation 99.7 H (94-97) % ABG Lactic Acid (0.5-1.6) mmol/L Chloride 96 L (98-107) mmol/L Carbon Dioxide 14 L (22-30) mmol/L BUN 46 H (7-17) mg/dL Creatinine 5.94 H (0.52-1.04) mg/dL Glucose 164 H (74-99) mg/dL POC Glucose (mg/dL) (70-110) mg/dL Plasma Lactic Acid Raji (0.7-2.0) mmol/L Calcium 6.1 L* (8.4-10.2) mg/dL Phosphorus 8.9 H (2.5-4.5) mg/dL Total Bilirubin 4.0 H (0.2-1.3) mg/dL AST 9585 H (14-36) U/L ALT 4720 H (4-34) U/L Alkaline Phosphatase 135 H (38-126) U/L Ammonia (<30) umol/L Total Protein 5.3 L (6.3-8.2) g/dL Albumin 2.7 L (3.5-5.0) g/dL 08/15/21 Range/Units 06:06 WBC (3.8-10.6) k/uL RDW (11.5-15.5) % Plt Count (150-450) k/uL Neutrophils # (Manual) (1.3-7.7) k/uL Metamyelocytes # (Man) (0) k/uL ABG pH (7.35-7.45) ABG pCO2 (35-45) mmHg ABG pO2 (83-108) mmHg ABG HCO3 (21-25) mmol/L ABG Total CO2 (19-24) mmol/L ABG O2 Saturation (94-97) % ABG Lactic Acid (0.5-1.6) mmol/L Chloride (98-107) mmol/L Carbon Dioxide (22-30) mmol/L BUN (7-17) mg/dL Creatinine (0.52-1.04) mg/dL Glucose (74-99) mg/dL POC Glucose (mg/dL) 157 H (70-110) mg/dL Plasma Lactic Acid Raji (0.7-2.0) mmol/L Calcium (8.4-10.2) mg/dL Phosphorus (2.5-4.5) mg/dL Total Bilirubin (0.2-1.3) mg/dL AST (14-36) U/L ALT (4-34) U/L Alkaline Phosphatase (38-126) U/L Ammonia (<30) umol/L Total Protein (6.3-8.2) g/dL Albumin (3.5-5.0) g/dL Microbiology - Last 24 Hours (Table) 08/13/21 15:49 Blood Culture - Preliminary Blood No Growth after 24 hours Assessment and Plan Assessment: 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 Also a component of patient's encephalopathy due to cardiogenic shock with metabolic derangement/hepatic Cardiac arrest unsure exactly downtime but per nurse possible around 15- 20minutes. Rhythm with V.Fib Myoclonus (with episodes of right eye/facial twitching, chin and bilateral thigh) due to cardiac arrest Multiorgan failure due to her cardiac arrest Acute hypoxic respiratory failure due to cardiac arrest status post intubated on a ventilator Cardiogenic shock Acute kidney insufficiency--worsening History of Cardiac sarcoidosis Systolic congestive heart failure status post AICD Recent admission for MRSA bacteremia, AICD vegetation atrial fibrillation on eliquis History of mulitple sclerosis Type 2 diabetes Plan: Continue Keppra 500 mg every 12 hours with a loading of 500 avoid any higher dose of 500 loading because of her kidney insufficiency. CT of the head without: Pending (patient is currently unstable). Likely patient has vasogenic edema from her anoxic brain injury and causing herniation since has dilated pupils. Gave Mannitol yesterday post dialysis without any improvement. Every 2 neurochecks Cardiology is on board Nephrology is on board. We'll defer the rest of the medical management to the primary and ICU team. Patient has multiorgan failure due to cardiac arrest. Her condition is sadly grave and she has no brainstem reflexes. I discussed this with patient's and rest of family members at bedside. Family wants to withdrawal of care. Hector Calderon M.D. Neuro-Hospitalist Time with Patient: Less than 30
--- NOTE | 2021-08-15 12:20 | P.PN ---
Subjective Progress Note Date: 08/15/21 Principal diagnosis: Cardiac arrest This is a 45-year-old female known to my service from previous admission. Patient had history of nonischemic cardiomyopathy and previous AICD placement. History of cardiac sarcoidosis. Patient was recently in the hospital from 07/14 until 07/26 for MRSA bacteremia and pacemaker lead vegetation. Patient was seen on consultation by us and by infectious disease, she underwent extraction of the right atrial lead, LV lead and RV ICD lead, then she had implantation of the new RV pacing lead and implantation of single-chamber pacemaker generator in the pocket. Patient was discharged home with a PICC line in place, and she was receiving antibiotics for a total of 6 weeks supposedly yesterday, during sexual intercourse, patient became unresponsive according to her . EMS was notified, and upon arrival she was noted to have very weak pulses, and shallow respirations. Patient was noted to be in ventricular fibrillation and she was cardioverted. CPR was also performed. Patient remained apneic and unresponsive and there was difficulty removing the patient from the house. Patient also had additional cardiac arrest. She was eventually brought into the ER, and admitted to the ICU. Her down time must have been about 20 minutes. Patient is known to have history of LV dysfunction, echocardiogram in June showed LV dysfu nction with ejection fraction of 35-40%. Patient is also known to have mitral regurgitation, severe global LV dysfunction. Patient was admitted to the ICU yesterday, and she is now on mechanical ventilation with assist control of 28 tidal volume 450 FiO2 50% PEEP of 5. ABG showed a pO2 of 118 pCO2 32 pH of 7.11. Patient received bicarbonate earlier and she is on a bicarb drip at 100 mL per hour. She is also on propofol at 50 mcg/kg/m and epinephrine at 0.2, however I'm planning to transition epinephrine to norepinephrine and eventually discontinue epinephrine. Chest x-ray showed no evidence of active disease, different lines and indwelling catheter seemed to be in proper position. Alissa sifuentes was seen by neurology on consultation, EEG is pending, and it is felt that the patient may have anoxic encephalopathy due to cardiac arrest. Patient was empirically started on Keppra for potential seizure activity. Labs today showed leukocytosis with WBC of 27.8 hemoglobin 13. Repeat ABG showed a pO2 of 124 pCO2 26 pH of 7.17. Creatinine jumped up from 1.02 on admission to 2.59 this morning. Blood sugars are in the range of 304. Lactic acid as high as 21. Patient was placed on stress doses of hydrocortisone. She is also on antibiotics in the form of Zosyn. And she is on bicarb drip. Reevaluated today on 08/14/2021, patient remains in the ICU, intubated and mechanically ventilated. Patient is not doing well, her overall clinical status remains extremely poor. Patient is unresponsive to any stimuli. Her pupils are nonreactive. She is on assist control rate of 30 tidal volume 450 FiO2 60% PEEP of 5 ABG showed a pO2 of 76 pCO2 33 pH of 7.36. IV fluid is 0.9 normal saline at 55 mL per hour, her propofol is presently on hold, and she is off norepinephrine drip. Patient remains on Zosyn and daptomycin cultures are pending. Today no changes were made at her ventilator settings and she is presently off sedation to be assessed by neurology later on. Patient is being c onsidered for hemodialysis. Seen by nephrology today, and considering her renal status obviously the patient needs to be hemodialyzed. Renal ultrasound this morning showed no evidence of hydronephrosis, left kidney could not be visualized. Chest x-ray continues to show right basilar opacity, consistent with possible aspiration pneumonia PICC line tip is at the brachiocephalic subclavian confluence. WBC count today is 18.7 hemoglobin 13.8 electrolytes are normal BUN is 42 creatinine 4.49 liver enzymes are significantly elevated with AST of over 15,000 ammonia level is 49 and ALT is 6208 Reevaluated today on 08/15/2021, patient remains in the ICU, intubated mechanically ventilated. She is on assist control rate of 30 tidal volume 450 FiO2 50% PEEP is 12 ABG showed a pO2 of 210, pCO2 of 29 pH of 7.31. This was on 70% FiO2. Patient is off propofol since yesterday, she is on norepinephrine at 0.09 mcg/kg/m and her IV fluids at KVO. Chest x-ray is basically about the same, not much of a change in the last 24 hours. Patient had hemodialysis catheter placed yesterday, dialysis was performed yesterday and 500 mL were taken off. Patient remains on tube feeds, cardiac-herman patient has a paced rhythm. According to the nurses taking care of the patient, the called and he is planning to proceed with comfort care measures today. Apparently her neurological condition has been addressed by the neurologist, and seems to be not waking up in spite of holding propofol now for the last 24 hours. Neurological recovery seems to be the main issue. Hence the family is willing to proceed with comfort care measures sometime later today. Objective - Vital Signs Vital signs: Vital Signs Temp 98.2 F 08/15/21 08:00 Pulse 49 L 08/15/21 11:00 Resp 32 H 08/15/21 11:00 BP 108/53 08/15/21 08:00 Pulse Ox 99 08/15/21 11:00 FiO2 50 08/15/21 11:00 Intake & Output 08/14/21 08/15/21 08/15/21 18:59 06:59 18:59 Intake Total 7088.368 9481.426 675 Output Total 512 7 0 Balance 9275.790 1263.426 675 Weight 138 kg Intake: IV 945 950 675 ACETAMINOPHEN IV (For NPO 100 ) 1,000 mg In Empty Bag 1 bag @ 400 mls/hr IVPB ONCE STA Rx#:[id number] Calcium Gluconate in NaCl 100 1 gm In Saline 1 100ml. bag @ 100 mls/hr IVPB ONCE ONE Rx#:[id number] Dextrose 5% in Water 1, 300 000 ml @ 150 mls/hr IV . Q7H40M [facility] with Sodium Bicarb (1 Meq/ml) 150 ml Rx#:[id number] Mannitol 20% Pmx 168 ml 170 In Empty Bag 1 bag @ 168 mls/hr IV ONCE ONE Rx#: [id number] Piperacillin-Tazobactam 3 100 100 .375 gm In Sodium Chloride 0.9% 100 ml @ 25 mls/hr IVPB Q12HR [facility] Rx #:[id number] Sodium Chloride 0.9% 1, 375 750 375 000 ml @ 75 mls/hr IV . [id number] [facility] Rx#:[id number] levETIRAcetam IV 500 mg 100 100 In Sodium Chloride 0.9% 100 ml @ 400 mls/hr IVPB Q12HR [facility] Rx#:[id number] Intake, IV Titration 720.062 90.426 Amount Norepinephrine 32 mg In 70.732 90.426 Sodium Chloride 0.9% 218 ml @ 0.05 MCG/KG/MIN 2. 822 mls/hr IV .Q24H [facility] Rx#:[id number] Piperacillin-Tazobactam 3 100 .375 gm In Sodium Chloride 0.9% 100 ml @ 25 mls/hr IVPB Q12HR [facility] Rx #:[id number] Sodium Chloride 0.9% 1, 375 000 ml @ 75 mls/hr IV . [id number] [facility] Rx#:[id number] Sodium Chloride 0.9% 500 30 ml 500 ml @ 999 mls/hr IV .Q31M [facility] Rx#:[id number] levETIRAcetam IV 500 mg 100 In Sodium Chloride 0.9% 100 ml @ 400 mls/hr IVPB Q12HR [facility] Rx#:[id number] propofoL 1,000 mg In 44.33 Empty Bag 1 bag @ 5 MCG/ KG/MIN 3.9 mls/hr IV . Q24H [facility] Rx#:[id number] Output: Urine 12 7 0 Hemodialysis 500 Other: Voiding Method Indwelling Catheter Indwelling Catheter Indwelling Catheter ABP, PAP, CO, CI - Last Documented Arterial Blood Pressure 100/50 - Exam Physical Exam: Revealed a 45-year-old female, obese, intubated and mechanically ventilated. Head: Atraumatic, normocephalic. HEENT:[Neck is supple.] [No neck masses.] [No thyromegaly.] [No JVD.] PERRLA, EOMI, nonicteric. Chest: Symmetrical chest expansion, diminished breath sounds at the bases no rhonchi no wheezes Cardiac Exam: Regular rhythm, 2/6 systolic murmur thought the precordium. Abdomen: [Obese, Soft, nontender, no megaly, no rebound, no guarding, normal bowel sounds.] Extremities: [No clubbing, no edema, no cyanosis.] Neurological Exam: Patient is off sedation, since yesterday unresponsive to any stimuli, pupils are dilated and nonreactive. psychiatric: Could not assess, patient is unresponsive to any stimuli - Labs CBC & Chem 7: 08/15/21 04:15 08/15/21 04:15 Labs: Abnormal Lab Results - Last 24 Hours (Table) 08/14/21 08/14/21 08/14/21 Range/Units 11:59 11:59 13:04 WBC (3.8-10.6) k/uL RDW (11.5-15.5) % Plt Count (150-450) k/uL Neutrophils # (Manual) (1.3-7.7) k/uL Metamyelocytes # (Man) (0) k/uL ABG pH (7.35-7.45) ABG pCO2 (35-45) mmHg ABG pO2 (83-108) mmHg ABG HCO3 (21-25) mmol/L ABG Total CO2 (19-24) mmol/L ABG O2 Saturation (94-97) % ABG Lactic Acid (0.5-1.6) mmol/L Chloride (98-107) mmol/L Carbon Dioxide (22-30) mmol/L BUN (7-17) mg/dL Creatinine (0.52-1.04) mg/dL Glucose (74-99) mg/dL POC Glucose (mg/dL) 145 H (70-110) mg/dL Plasma Lactic Acid Raji 14.6 H* (0.7-2.0) mmol/L Calcium (8.4-10.2) mg/dL Phosphorus (2.5-4.5) mg/dL Total Bilirubin (0.2-1.3) mg/dL AST (14-36) U/L ALT (4-34) U/L Alkaline Phosphatase (38-126) U/L Ammonia 49 H (<30) umol/L Total Protein (6.3-8.2) g/dL Albumin (3.5-5.0) g/dL 08/14/21 08/14/21 08/14/21 Range/Units 16:56 17:59 23:45 WBC (3.8-10.6) k/uL RDW (11.5-15.5) % Plt Count (150-450) k/uL Neutrophils # (Manual) (1.3-7.7) k/uL Metamyelocytes # (Man) (0) k/uL ABG pH (7.35-7.45) ABG pCO2 (35-45) mmHg ABG pO2 (83-108) mmHg ABG HCO3 (21-25) mmol/L ABG Total CO2 (19-24) mmol/L ABG O2 Saturation (94-97) % ABG Lactic Acid 11.9 H* (0.5-1.6) mmol/L Chloride (98-107) mmol/L Carbon Dioxide (22-30) mmol/L BUN (7-17) mg/dL Creatinine (0.52-1.04) mg/dL Glucose (74-99) mg/dL POC Glucose (mg/dL) 148 H 125 H (70-110) mg/dL Plasma Lactic Acid Raji (0.7-2.0) mmol/L Calcium (8.4-10.2) mg/dL Phosphorus (2.5-4.5) mg/dL Total Bilirubin (0.2-1.3) mg/dL AST (14-36) U/L ALT (4-34) U/L Alkaline Phosphatase (38-126) U/L Ammonia (<30) umol/L Total Protein (6.3-8.2) g/dL Albumin (3.5-5.0) g/dL 08/15/21 08/15/21 08/15/21 Range/Units 01:11 04:14 04:15 WBC (3.8-10.6) k/uL RDW (11.5-15.5) % Plt Count (150-450) k/uL Neutrophils # (Manual) (1.3-7.7) k/uL Metamyelocytes # (Man) (0) k/uL ABG pH (7.35-7.45) ABG pCO2 (35-45) mmHg ABG pO2 (83-108) mmHg ABG HCO3 (21-25) mmol/L ABG Total CO2 (19-24) mmol/L ABG O2 Saturation (94-97) % ABG Lactic Acid (0.5-1.6) mmol/L Chloride 96 L (98-107) mmol/L Carbon Dioxide 14 L (22-30) mmol/L BUN 46 H (7-17) mg/dL Creatinine 5.94 H (0.52-1.04) mg/dL Glucose 164 H (74-99) mg/dL POC Glucose (mg/dL) 132 H 172 H (70-110) mg/dL Plasma Lactic Acid Raji (0.7-2.0) mmol/L Calcium 6.1 L* (8.4-10.2) mg/dL Phosphorus 8.9 H (2.5-4.5) mg/dL Total Bilirubin 4.0 H (0.2-1.3) mg/dL AST 9585 H (14-36) U/L ALT 4720 H (4-34) U/L Alkaline Phosphatase 135 H (38-126) U/L Ammonia (<30) umol/L Total Protein 5.3 L (6.3-8.2) g/dL Albumin 2.7 L (3.5-5.0) g/dL 08/15/21 08/15/21 08/15/21 Range/Units 04:15 06:05 06:06 WBC 16.7 H (3.8-10.6) k/uL RDW 16.1 H (11.5-15.5) % Plt Count 99 L (150-450) k/uL Neutrophils # (Manual) 14.60 H (1.3-7.7) k/uL Metamyelocytes # (Man) 0.17 H (0) k/uL ABG pH 7.31 L (7.35-7.45) ABG pCO2 29 L (35-45) mmHg ABG pO2 210 H (83-108) mmHg ABG HCO3 15 L (21-25) mmol/L ABG Total CO2 16 L (19-24) mmol/L ABG O2 Saturation 99.7 H (94-97) % ABG Lactic Acid (0.5-1.6) mmol/L Chloride (98-107) mmol/L Carbon Dioxide (22-30) mmol/L BUN (7-17) mg/dL Creatinine (0.52-1.04) mg/dL Glucose (74-99) mg/dL POC Glucose (mg/dL) 157 H (70-110) mg/dL Plasma Lactic Acid Raji (0.7-2.0) mmol/L Calcium (8.4-10.2) mg/dL Phosphorus (2.5-4.5) mg/dL Total Bilirubin (0.2-1.3) mg/dL AST (14-36) U/L ALT (4-34) U/L Alkaline Phosphatase (38-126) U/L Ammonia (<30) umol/L Total Protein (6.3-8.2) g/dL Albumin (3.5-5.0) g/dL Microbiology - Last 24 Hours (Table) 08/12/21 22:02 Gram Stain - Final Sputum Sputum Culture - Final 08/13/21 15:49 Blood Culture - Preliminary Blood No Growth after 24 hours Assessment and Plan Assessment: Impression: Acute hypoxic respiratory failure secondary to cardiac arrest with ventricular fibrillation arrest, status post defibrillation and CPR in the field, down 15-20 minutes. Suspect anoxic brain injury, EEG is suggestive of severe encephalopathy Severe lactic acidosis, likely due to prolonged downtime. Possible septic shock considering the patient had recent bacteremia and she was already on antibiotics. Cultures are pending Cardiac sarcoidosis. Paroxysmal atrial fibrillation. Benign essential hypertension. Type 2 diabetes. Acute kidney injury secondary to cardiac arrest, acute tubular necrosis. History of recent MRSA bacteremia and AICD vegetations Nonischemic cardiomyopathy and previous Severe lactic acidosis secondary to poor hypoperfusion and prolonged downtime. Recommendation: Proceed to comfort care measures and extubation when the family is ready in the meantime: Continue ventilatory support Continue hemodynamic use norepinephrine as needed. Continue GI and DVT prophylaxis Nutritional support/enteral feeding Prognosis is extremely poor and guarded Discussed her condition with her father at bedside Patient is critically ill. I believe comfort care measures decision is appropriate Critical care time is over 30 minute Time with Patient: Greater than 30
[2021-08-15 13:32] VITALS: BMI 49.1
--- NOTE | 2021-08-15 13:49 | P.DS ---
Providers Date of admission: 08/12/21 18:17 Expected date of discharge: 08/15/21 Attending physician: Ana Bardales MD Consults: 08/12/21 17:38 Consult Physician Stat Consulting Provider: Pritesh Nieto Consult Reason/Comments: cardiac arrest Do you want consulting provider notified?: Already Contacted 08/12/21 18:17 Consult Physician Stat Consulting Provider: Valentín Sow Consult Reason/Comments: icu patient Do you want consulting provider notified?: Already Contacted 08/12/21 22:28 Consult Physician Stat Consulting Provider: Valentín Sow Consult Reason/Comments: ICU management Do you want consulting provider notified?: Already Contacted 08/13/21 09:55 Consult Physician Urgent Consulting Provider: Hector Calderon Consult Reason/Comments: cardiac arrest, anoxic brain injury Do you want consulting provider notified?: Yes 08/13/21 11:04 Consult to Palliative Care Routine Consulting Provider: Sierra Vergara Consult Reason/Comments: Critical condition, poor prognosis Do you want consulting provider notified?: Yes 08/13/21 11:20 Consult Physician Routine Consulting Provider: Sinan Gamboa Consult Reason/Comments: Anuric kidney failure Do you want consulting provider notified?: Yes 08/13/21 11:23 Consult Physician Routine Consulting Provider: Abi Robbins Consult Reason/Comments: Fever, leukocytosis, 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 l Do you want consulting provider notified?: Yes 08/14/21 08:25 Consult Physician Routine Consulting Provider: Wilbert Walls Consult Reason/Comments: temp hemodialysis catheter insertion Do you want consulting provider notified?: Yes Primary care physician: Costa Falcon Hospital Course: Discharge Diagnosis: Sudden cardiac 2 with Rosc Prolonged downtime Severe lactic acidosis Shock liver Multiorgan system dysfunction syndrome Anoxic encephalopathy Hyperammonia Probable septic vs cardiogenic shock Thrombocytopenia Olioguric renal failure Chronic systolic congestive heart failure Nonischemic cardiomyopathy with previous AICD Paroxysmal atrial fibrillation anticoagulated with eliquis Cardiac sarcoidosis Diabetes mellitus type 2 Hypertension Dyslipidemia Recent MRSA bacteremia Hospital Course: Patient is a 45-year-old female with cardiac sarcoidosis, nonischemic cardiomyopathy status post AICD with removal and recent pacemaker implantation, A. fib, type 2 diabetes, hypertension, and dyslipidemia who was brought into the emergency department after she suffered a cardiac arrest at home. Patient subsequently had a second cardiac arrest while under medical care. She had a prolonged down time. She has had multiple recent hospitalizations for pancreatitis and then MRSA bacteremia with ICD lead vegetation (excised and PPM implanted), subsequent recommendations for outpatient IV antibiotics, and then congestive heart failure exacerbation. She was determined not to be a candidate for an emergent cardiac catheterization due to her prolonged downtime and nonischemic cardiomyopathy history. She was subsequently admitted to the ICU. She was followed by pulmonary/ critical care, cardiology, neurology, nephrology. She developed significant renal failure as well as shock liver. She underwent an EEG which showed diffuse slowing consistent with severe encephalopathy. On the morning of 08/14 her pupils became fixed and dilated. She was anuric with worsening renal function and increasing vent requirements. A hemodialysis ca theter was placed and she underwent dialysis on 08/14/21. On the morning of 08/15 she was no longer breathing over the vent. I called her stephanie on 08/15/21 he wished to speak with neurology who met with him . They decided to proceed with terminal wean. Patient subsequently at 11:40 surrounded by family. Imaging: Renal ultrasound: Right sided. By bowel gas pattern, left side without hydronephrosis EEG: Background slowing suggestive of encephalopathy Patient seen and examined at bedside at 10:32. non responsive on vent without sedation, no breathing over vent, pupils fixed and dilated Vital signs reviewed and stable. General: nontoxic, moderate distress, appears at stated age Derm: warm, dry Head: atraumatic, normocephalic, symmetric Eyes: Pupils fixed and dilated, + scleral edema, + icteric sclera Mouth: no lip lesion, mucus membranes moist Cardiovascular: S1S2 reg, no murmur, positive posterior tibial pulse bilateral, Lungs: Coarse breath sounds bilateral, no rhonchi, no rales , no accessory muscle use Abdominal: soft, nontender to palpation, no guarding, no appreciable organomegaly Ext: no gross muscle atrophy, 1+ edema, no contractures Neuro: Pupils fixed and dilated, not breathing over the vent, no withdrawal to pain Psych: Nonresponsive on vent without sedation A total of 32 minutes of time were spent preparing this complex discharge summary. Patient was discharged on 08/15/21. Patient Condition at Discharge: Undetermined Plan - Discharge Summary Discharge Rx Participant: No New Discharge Prescriptions: No Action metFORMIN HCL [Glucophage] 1,000 mg PO BID-W/MEALS Ezetimibe [Zetia] 10 mg PO DAILY Apixaban [Eliquis] 5 mg PO BID #180 tab PARoxetine HCL 30 mg PO DAILY Artificial Tears-Hypromellose [Artificial Tear Drops] 1 drop BOTH EYES TID PRN PRN Reason: Dry Eye(S) Albuterol Inhaler [Ventolin Hfa Inhaler] 2 puff INHALATION RT-Q4H PRN PRN Reason: Shortness Of Breath Levothyroxine Sodium [Synthroid] 175 mcg PO DAILY guaiFENesin-Coden 100-10MG/5ML [Robitussin AC] 10 ml PO TID PRN #1000 ml PRN Reason: Cough Fenofibrate [Lofibra] 160 mg PO DAILY Pantoprazole [Protonix] 40 mg PO AC-BID #60 tab Vancomycin 2,000 mg IVPB Q12HR each predniSONE 10 mg PO DAILY Furosemide [Lasix] 40 mg PO BID@0900,1600 #180 tab Metoprolol Succinate (ER) [Toprol XL] 25 mg PO DAILY #90 tab Acetaminophen [Tylenol] 1,000 mg PO Q4-6H PRN PRN Reason: Fever And/ Or Pain Latanoprost/Pf [Latanoprost 0.005% Eye Drop] 1 drop RIGHT EYE HS glipiZIDE [Glucotrol] 5 mg PO AC-BRKFST #30 tab HYDROcodone/APAP 5-325MG [[place] 5-325] 1 tab PO Q6HR PRN 3 Days #12 tab PRN Reason: Pain Discharge Medication List metFORMIN HCL [Glucophage] 1,000 mg PO BID-W/MEALS 11/10/17 [History] Ezetimibe [Zetia] 10 mg PO DAILY 10/06/18 [History] Apixaban [Eliquis] 5 mg PO BID #180 tab 02/15/19 [Rx] PARoxetine HCL 30 mg PO DAILY 06/23/19 [History] Artificial Tears-Hypromellose [Artificial Tear Drops] 1 drop BOTH EYES TID PRN 11/13/20 [History] Albuterol Inhaler [Ventolin Hfa Inhaler] 2 puff INHALATION RT-Q4H PRN 06/26/21 [History] Acetaminophen [Tylenol] 1,000 mg PO Q4-6H PRN 07/01/21 [History] Latanoprost/Pf [Latanoprost 0.005% Eye Drop] 1 drop RIGHT EYE HS 07/01/21 [His tory] Levothyroxine Sodium [Synthroid] 175 mcg PO DAILY 07/01/21 [History] glipiZIDE [Glucotrol] 5 mg PO AC-BRKFST #30 tab 07/05/21 [Rx] guaiFENesin-Coden 100-10MG/5ML [Robitussin AC] 10 ml PO TID PRN #1000 ml 07/05/21 [Rx] HYDROcodone/APAP 5-325MG [[place] 5-325] 1 tab PO Q6HR PRN 3 Days #12 tab 07/11/21 [Rx] Fenofibrate [Lofibra] 160 mg PO DAILY 07/14/21 [History] Pantoprazole [Protonix] 40 mg PO AC-BID #60 tab 07/25/21 [Rx] Vancomycin 2,000 mg IVPB Q12HR each 07/25/21 [Rx] predniSONE 10 mg PO DAILY 07/30/21 [History] Furosemide [Lasix] 40 mg PO BID@0900,1600 #180 tab 08/01/21 [Rx] Metoprolol Succinate (ER) [Toprol XL] 25 mg PO DAILY #90 tab 08/01/21 [Rx] Follow up Appointment(s)/Referral(s): Costa Falcon [Primary Care Provider] - 1-2 days - Preliminary Cause of Preliminary Cause of : anoxic encephalopathy
[2021-08-15] MEDS ORDERED: DAPTOmycin 500 MG in SODIUM CHLORIDE 0.9% 50 ML IVPB SCH (18:00)
--- NOTE | 2021-08-17 23:15 | P.PN ---
Subjective Progress Note Date: 08/15/21 Principal diagnosis: Sepsis Patient is a 45-year-old female with recent diagnosis of MRSA AICD lead infection status post removal of the lead and the patient was receiving IV vancomycin at home presented to hospital with at-home cardiac arrest status post multiple resuscitation currently on the vent On today's evaluation that is 08/15/2021, the patient fever pattern has improved the next 100.5F, the patient is currently intubated on the vent and FiO2 is at 60% no significant purulent secretion through the ET or diarrhea reported by the nursing staff Objective - Vital Signs Vital signs: Vital Signs Temp 98.2 F 08/15/21 08:00 Pulse 49 L 08/15/21 08:00 Resp 30 H 08/15/21 08:00 BP 108/53 08/15/21 08:00 Pulse Ox 100 08/15/21 08:00 FiO2 60 08/15/21 08:00 Intake & Output 08/14/21 08/15/21 08/15/21 18:59 06:59 18:59 Intake Total 6057.331 8279.426 150 Output Total 512 7 0 Balance 8778.052 4603.426 150 Weight 138 kg Intake: IV 945 950 150 ACETAMINOPHEN IV (For NPO 100 ) 1,000 mg In Empty Bag 1 bag @ 400 mls/hr IVPB ONCE STA Rx#:[id number] Dextrose 5% in Water 1, 300 000 ml @ 150 mls/hr IV . Q7H40M [facility] with Sodium Bicarb (1 Meq/ml) 150 ml Rx#:[id number] Mannitol 20% Pmx 168 ml 170 In Empty Bag 1 bag @ 168 mls/hr IV ONCE ONE Rx#: [id number] Piperacillin-Tazobactam 3 100 .375 gm In Sodium Chloride 0.9% 100 ml @ 25 mls/hr IVPB Q12HR [facility] Rx #:[id number] Sodium Chloride 0.9% 1, 375 750 150 000 ml @ 75 mls/hr IV . [id number] [facility] Rx#:[id number] levETIRAcetam IV 500 mg 100 In Sodium Chloride 0.9% 100 ml @ 400 mls/hr IVPB Q12HR [facility] Rx#:[id number] Intake, IV Titration 720.062 90.426 Amount Norepinephrine 32 mg In 70.732 90.426 Sodium Chloride 0.9% 218 ml @ 0.05 MCG/KG/MIN 2. 822 mls/hr IV .Q24H [facility] Rx#:[id number] Piperacillin-Tazobactam 3 100 .375 gm In Sodium Chloride 0.9% 100 ml @ 25 mls/hr IVPB Q12HR [facility] Rx #:[id number] Sodium Chloride 0.9% 1, 375 000 ml @ 75 mls/hr IV . [id number] [facility] Rx#:[id number] Sodium Chloride 0.9% 500 30 ml 500 ml @ 999 mls/hr IV .Q31M ONE Rx#:[id number] levETIRAcetam IV 500 mg 100 In Sodium Chloride 0.9% 100 ml @ 400 mls/hr IVPB Q12HR [facility] Rx#:[id number] propofoL 1,000 mg In 44.33 Empty Bag 1 bag @ 5 MCG/ KG/MIN 3.9 mls/hr IV . Q24H [facility] Rx#:[id number] Output: Urine 12 7 0 Hemodialysis 500 Other: Voiding Method Indwelling Catheter Indwelling Catheter ABP, PAP, CO, CI - Last Documented Arterial Blood Pressure 115/55 - Exam GENERAL DESCRIPTION: Middle-aged female intubated on the vent RESPIRATORY SYSTEM: Unlabored breathing , decreased breath sounds at bases HEART: S1 S2 regular rate and rhythm , ABDOMEN: Soft , no tenderness EXTREMITIES: No edema feet - Labs CBC & Chem 7: 08/15/21 04:15 08/15/21 04:15 Labs: Abnormal Lab Results - Last 24 Hours (Table) 08/14/21 08/14/21 08/14/21 Range/Units 00:59 11:59 11:59 WBC (3.8-10.6) k/uL RDW (11.5-15.5) % Plt Count (150-450) k/uL Neutrophils # (Manual) (1.3-7.7) k/uL Metamyelocytes # (Man) (0) k/uL ABG pH (7.35-7.45) ABG pCO2 (35-45) mmHg ABG pO2 (83-108) mmHg ABG HCO3 (21-25) mmol/L ABG Total CO2 (19-24) mmol/L ABG O2 Saturation (94-97) % ABG Lactic Acid (0.5-1.6) mmol/L Chloride (98-107) mmol/L Carbon Dioxide (22-30) mmol/L BUN (7-17) mg/dL Creatinine (0.52-1.04) mg/dL Glucose (74-99) mg/dL POC Glucose (mg/dL) (70-110) mg/dL Plasma Lactic Acid Raji 14.6 H* (0.7-2.0) mmol/L Calcium (8.4-10.2) mg/dL Phosphorus (2.5-4.5) mg/dL Total Bilirubin (0.2-1.3) mg/dL AST >31024 H (14-36) U/L ALT 6208 H (4-34) U/L Alkaline Phosphatase (38-126) U/L Ammonia 49 H (<30) umol/L Total Protein (6.3-8.2) g/dL Albumin (3.5-5.0) g/dL 08/14/21 08/14/21 08/14/21 Range/Units 13:04 16:56 17:59 WBC (3.8-10.6) k/uL RDW (11.5-15.5) % Plt Count (150-450) k/uL Neutrophils # (Manual) (1.3-7.7) k/uL Metamyelocytes # (Man) (0) k/uL ABG pH (7.35-7.45) ABG pCO2 (35-45) mmHg ABG pO2 (83-108) mmHg ABG HCO3 (21-25) mmol/L ABG Total CO2 (19-24) mmol/L ABG O2 Saturation (94-97) % ABG Lactic Acid 11.9 H* (0.5-1.6) mmol/L Chloride (98-107) mmol/L Carbon Dioxide (22-30) mmol/L BUN (7-17) mg/dL Creatinine (0.52-1.04) mg/dL Glucose (74-99) mg/dL POC Glucose (mg/dL) 145 H 148 H (70-110) mg/dL Plasma Lactic Acid Raji (0.7-2.0) mmol/L Calcium (8.4-10.2) mg/dL Phosphorus (2.5-4.5) mg/dL Total Bilirubin (0.2-1.3) mg/dL AST (14-36) U/L ALT (4-34) U/L Alkaline Phosphatase (38-126) U/L Ammonia (<30) umol/L Total Protein (6.3-8.2) g/dL Albumin (3.5-5.0) g/dL 08/14/21 08/15/21 08/15/21 Range/Units 23:45 01:11 04:14 WBC (3.8-10.6) k/uL RDW (11.5-15.5) % Plt Count (150-450) k/uL Neutrophils # (Manual) (1.3-7.7) k/uL Metamyelocytes # (Man) (0) k/uL ABG pH (7.35-7.45) ABG pCO2 (35-45) mmHg ABG pO2 (83-108) mmHg ABG HCO3 (21-25) mmol/L ABG Total CO2 (19-24) mmol/L ABG O2 Saturation (94-97) % ABG Lactic Acid (0.5-1.6) mmol/L Chloride (98-107) mmol/L Carbon Dioxide (22-30) mmol/L BUN (7-17) mg/dL Creatinine (0.52-1.04) mg/dL Glucose (74-99) mg/dL POC Glucose (mg/dL) 125 H 132 H 172 H (70-110) mg/dL Plasma Lactic Acid Raji (0.7-2.0) mmol/L Calcium (8.4-10.2) mg/dL Phosphorus (2.5-4.5) mg/dL Total Bilirubin (0.2-1.3) mg/dL AST (14-36) U/L ALT (4-34) U/L Alkaline Phosphatase (38-126) U/L Ammonia (<30) umol/L Total Protein (6.3-8.2) g/dL Albumin (3.5-5.0) g/dL 08/15/21 08/15/21 08/15/21 Range/Units 04:15 04:15 06:05 WBC 16.7 H (3.8-10.6) k/uL RDW 16.1 H (11.5-15.5) % Plt Count 99 L (150-450) k/uL Neutrophils # (Manual) 14.60 H (1.3-7.7) k/uL Metamyelocytes # (Man) 0.17 H (0) k/uL ABG pH 7.31 L (7.35-7.45) ABG pCO2 29 L (35-45) mmHg ABG pO2 210 H (83-108) mmHg ABG HCO3 15 L (21-25) mmol/L ABG Total CO2 16 L (19-24) mmol/L ABG O2 Saturation 99.7 H (94-97) % ABG Lactic Acid (0.5-1.6) mmol/L Chloride 96 L (98-107) mmol/L Carbon Dioxide 14 L (22-30) mmol/L BUN 46 H (7-17) mg/dL Creatinine 5.94 H (0.52-1.04) mg/dL Glucose 164 H (74-99) mg/dL POC Glucose (mg/dL) (70-110) mg/dL Plasma Lactic Acid Raji (0.7-2.0) mmol/L Calcium 6.1 L* (8.4-10.2) mg/dL Phosphorus 8.9 H (2.5-4.5) mg/dL Total Bilirubin 4.0 H (0.2-1.3) mg/dL AST 9585 H (14-36) U/L ALT 4720 H (4-34) U/L Alkaline Phosphatase 135 H (38-126) U/L Ammonia (<30) umol/L Total Protein 5.3 L (6.3-8.2) g/dL Albumin 2.7 L (3.5-5.0) g/dL 08/15/21 Range/Units 06:06 WBC (3.8-10.6) k/uL RDW (11.5-15.5) % Plt Count (150-450) k/uL Neutrophils # (Manual) (1.3-7.7) k/uL Metamyelocytes # (Man) (0) k/uL ABG pH (7.35-7.45) ABG pCO2 (35-45) mmHg ABG pO2 (83-108) mmHg ABG HCO3 (21-25) mmol/L ABG Total CO2 (19-24) mmol/L ABG O2 Saturation (94-97) % ABG Lactic Acid (0.5-1.6) mmol/L Chloride (98-107) mmol/L Carbon Dioxide (22-30) mmol/L BUN (7-17) mg/dL Creatinine (0.52-1.04) mg/dL Glucose (74-99) mg/dL POC Glucose (mg/dL) 157 H (70-110) mg/dL Plasma Lactic Acid Raji (0.7-2.0) mmol/L Calcium (8.4-10.2) mg/dL Phosphorus (2.5-4.5) mg/dL Total Bilirubin (0.2-1.3) mg/dL AST (14-36) U/L ALT (4-34) U/L Alkaline Phosphatase (38-126) U/L Ammonia (<30) umol/L Total Protein (6.3-8.2) g/dL Albumin (3.5-5.0) g/dL Microbiology - Last 24 Hours (Table) 08/13/21 15:49 Blood Culture - Preliminary Blood No Growth after 24 hours Assessment and Plan (1) Infection of pacemaker lead wire Status: Acute Code(s): T82.7XXA - INFECT/INFLM REACT D/T OTH CARDI/VASC DEV/IMPLNT/GRFT, INIT SNOMED Code(s): 639719082 (2) Pneumonia Status: Acute Code(s): J18.9 - PNEUMONIA, UNSPECIFIED ORGANISM SNOMED Code(s): 705530584 Plan: 1patient with acute respiratory failure this patient who did have a cardiac arrest at home with significant ongoing and repeat cardiac arrest in the ER now with evidence of fever elevated white count likely combination of possible aspiration pneumonia this patient was currently undergoing treatment for AICD lead infection secondary to MRSA. 2 patient to continue with Zosyn for possible aspiration pneumonia while waiting for the sputum cultures to finalize 3patient to continue with daptomycin 6 mg/kg every 48 hour for underlying MRSA infection. With overall poor prognosis and possible plan for hospice which may be appropriate for this patient once switched to comfort care/hospice antibiotic should be discontinued discussed with the RN taking care of the patient
== END 2021-08-15 11:40 | disposition expired | DRG 314 ==
LOC: EC 16:47 → 2SICU 18:17
PROVIDERS: ADMIT Internal Medicine; ATTEND Internal Medicine
PROC: 5A12012 Performance of Cardiac Output, Single, Manual (ICD-10-PCS; principal; 2021-08-12)
PROC: 3E033XZ Introduction of Vasopressor into Peripheral Vein, Percutaneous Approach (ICD-10-PCS; principal; 2021-08-12)
PROC: 5A1945Z Respiratory Ventilation, 24-96 Consecutive Hours (ICD-10-PCS; principal; 2021-08-12)
PROC: 06HY33Z Insertion of Infusion Device into Lower Vein, Percutaneous Approach (ICD-10-PCS; 2021-08-12)
PROC: 03HY32Z Insertion of Monitoring Device into Upper Artery, Percutaneous Approach (ICD-10-PCS; 2021-08-12)
PROC: 4A133B1 Monitoring of Arterial Pressure, Peripheral, Percutaneous Approach (ICD-10-PCS; 2021-08-12)
PROC: 4A133J1 Monitoring of Arterial Pulse, Peripheral, Percutaneous Approach (ICD-10-PCS; 2021-08-12)
PROC: 5A1D70Z Performance of Urinary Filtration, Intermittent, Less than 6 Hours Per Day (ICD-10-PCS; 2021-08-14)
DX: T82.7XXA Infection and inflammatory reaction due to other cardiac and vascular devices, implants and grafts, initial encounter (principal); A41.02 Sepsis due to Methicillin resistant Staphylococcus aureus; G93.41 Metabolic encephalopathy; J18.9 Pneumonia, unspecified organism; R65.21 Severe sepsis with septic shock; J96.01 Acute respiratory failure with hypoxia; G93.6 Cerebral edema; K72.00 Acute and subacute hepatic failure without coma; N17.0 Acute kidney failure with tubular necrosis; J96.00 Acute respiratory failure, unspecified whether with hypoxia or hypercapnia; J69.0 Pneumonitis due to inhalation of food and vomit; I42.8 Other cardiomyopathies; E87.2 Acidosis; G93.1 Anoxic brain damage, not elsewhere classified; Z68.42 Body mass index [BMI] 45.0-49.9, adult; I50.22 Chronic systolic (congestive) heart failure; I13.0 Hypertensive heart and chronic kidney disease with heart failure and stage 1 through stage 4 chronic kidney disease, or unspecified chronic kidney disease; Z99.11 Dependence on respirator [ventilator] status; Z51.5 Encounter for palliative care; Z66 Do not resuscitate; E11.22 Type 2 diabetes mellitus with diabetic chronic kidney disease; N18.9 Chronic kidney disease, unspecified; G35 Multiple sclerosis; F32.A Depression, unspecified; E66.01 Morbid (severe) obesity due to excess calories; I34.0 Nonrheumatic mitral (valve) insufficiency; I49.01 Ventricular fibrillation; D69.6 Thrombocytopenia, unspecified; Z86.74 Personal history of sudden cardiac arrest; E83.39 Other disorders of phosphorus metabolism; G25.3 Myoclonus; D86.85 Sarcoid myocarditis; E78.5 Hyperlipidemia, unspecified; G47.30 Sleep apnea, unspecified; D86.89 Sarcoidosis of other sites; G51.0 Bell's palsy; F40.240 Claustrophobia; F41.0 Panic disorder [episodic paroxysmal anxiety]; F90.9 Attention-deficit hyperactivity disorder, unspecified type; Y71.1 Therapeutic (nonsurgical) and rehabilitative cardiovascular devices associated with adverse incidents; I48.0 Paroxysmal atrial fibrillation; I49.3 Ventricular premature depolarization; Z95.810 Presence of automatic (implantable) cardiac defibrillator; Z86.14 Personal history of Methicillin resistant Staphylococcus aureus infection; Z79.899 Other long term (current) drug therapy; Z79.84 Long term (current) use of oral hypoglycemic drugs; Z79.890 Hormone replacement therapy; Z79.52 Long term (current) use of systemic steroids; Z79.01 Long term (current) use of anticoagulants; Z88.8 Allergy status to other drugs, medicaments and biological substances; Z91.013 Allergy to seafood; I25.2 Old myocardial infarction; Z87.820 Personal history of traumatic brain injury; Z86.39 Personal history of other endocrine, nutritional and metabolic disease; Z90.49 Acquired absence of other specified parts of digestive tract; Z98.61 Coronary angioplasty status; Z87.19 Personal history of other diseases of the digestive system; Z82.49 Family history of ischemic heart disease and other diseases of the circulatory system; Z82.61 Family history of arthritis; Z83.49 Family history of other endocrine, nutritional and metabolic diseases
CPT/HCPCS: 36415; 36556; 71045; 76770; 80048; 80053; 80202; 82140; 82805; 83605; 83735; 84075; 84100; 84450; 84460; 84484; 85025; 85379; 85610; 85730; 86704; 86706; 86850; 86900; 86901; 87040; 87070; 87205; 87340; 90935; 93005; 93308; 94002; 94003; 95822; 96361; 96374; 99291; 99292